=== PATIENT | female | born 1940 | race Caucasian/White ===

== ENCOUNTER 2021-11-04 | Outpatient (REF) | payer MEDICARE, SELFPAY ==
[2021-11-04 06:50] LABS: Hematocrit 33.6 % (37.0-47.0); Hemoglobin 10.8 g/dl (12.0-16.0); Mean Corpuscular HGB Conc 32.1 g/dl (31.0-35.0); Mean Corpuscular Hemoglobin 32.5 pg (27.0-33.0); Mean Corpuscular Volume 101.2 fL (80.0-98.0); Mean Platelet Volume 9.5 fL (9.4-12.3); Platelet Count 329 X10*3/uL (160-400); Red Blood Count 3.32 X10*6/uL (4.20-5.50); Red Cell Distribution Width 14.8 % (11.0-16.0); White Blood Count 9.8 X10*3/uL (4.8-10.8)
[2021-11-04 07:11] LABS: Anion Gap 14 (12-20); Blood Urea Nitrogen 12 mg/dL (9-16); Calcium 9.1 mg/dL (8.4-10.2); Carbon Dioxide 36 mmol/L (22-29); Chloride 86 mmol/L (96-108); Estimated Glomerular Filt Rate > 60; Glucose Random 128 mg/dL (60-115); Potassium 3.5 mmol/L (3.3-5.1); Sodium 132 mmol/L (135-145)
== END 2021-11-04 00:01 | disposition home or self-care (01) ==
LOC: HO.MMNH1L
PROVIDERS: Visit Provider Family Medicine
DX: I10 Essential (primary) hypertension (principal); E11.9 Type 2 diabetes mellitus without complications
CPT/HCPCS: 36415; 80048; 85027

== ENCOUNTER 2021-11-11 | Outpatient (REF) | payer MEDICARE, SELFPAY ==
[2021-11-11 06:55] LABS: MANUAL DIFF FLAG NO
[2021-11-11 07:10] LABS: Basophils Absolute Auto 0.1 X10*3/uL (0.0-0.2); Basophils Percent Auto 0.6 % (0-2); Eosinophils Absolute Auto 0.1 X10*3/uL (0.0-0.4); Eosinophils Percent Auto 1.3 % (0-4); Hemoglobin 10.4 g/dl (12.0-16.0); Imm Gran Abs Auto 0.07 X10*3/uL (0.00-0.03); Imm Gran Pct Auto 0.7 % (0.0-0.4); Lymphocytes Absolute Auto 1.9 X10*3/uL (1.2-4.9); Lymphocytes Percent Auto 17.8 % (20-40); Mean Corpuscular HGB Conc 32.5 g/dl (31.0-35.0); Mean Corpuscular Hemoglobin 31.9 pg (27.0-33.0); Mean Corpuscular Volume 98.2 fL (80.0-98.0); Mean Platelet Volume 9.7 fL (9.4-12.3); Monocytes Percent Auto 9.7 % (2-11); Neutrophils Absolute Auto 7.4 x10*3/uL (2.0-8.3); Neutrophils Percent Auto 69.9 % (45-73); Platelet Count 327 X10*3/uL (160-400); Red Blood Count 3.26 X10*6/uL (4.20-5.50); Red Cell Distribution Width 14.6 % (11.0-16.0); White Blood Count 10.5 X10*3/uL (4.8-10.8)
[2021-11-11 08:28] LABS: Anion Gap 16 (12-20); Blood Urea Nitrogen 16 mg/dL (9-16); Calcium 8.9 mg/dL (8.4-10.2); Carbon Dioxide 35 mmol/L (22-29); Chloride 85 mmol/L (96-108); Estimated Glomerular Filt Rate > 60; Glucose Random 146 mg/dL (60-115); Potassium 3.1 mmol/L (3.3-5.1); Sodium 133 mmol/L (135-145)
== END 2021-11-11 00:01 | disposition home or self-care (01) ==
LOC: HO.MMNH1L
PROVIDERS: Visit Provider Family Medicine
DX: I10 Essential (primary) hypertension (principal); E11.9 Type 2 diabetes mellitus without complications
CPT/HCPCS: 36415; 80048; 85025

== ENCOUNTER 2021-11-18 | Outpatient (REF) | payer MEDICARE, SELFPAY ==
[2021-11-18 07:07] LABS: MANUAL DIFF FLAG NO
[2021-11-18 07:23] LABS: Basophils Absolute Auto 0.1 X10*3/uL (0.0-0.2); Basophils Percent Auto 0.6 % (0-2); Eosinophils Absolute Auto 0.2 X10*3/uL (0.0-0.4); Eosinophils Percent Auto 1.6 % (0-4); Hematocrit 32.8 % (37.0-47.0); Hemoglobin 10.5 g/dl (12.0-16.0); Imm Gran Pct Auto 0.9 % (0.0-0.4); Lymphocytes Absolute Auto 1.8 X10*3/uL (1.2-4.9); Lymphocytes Percent Auto 16.7 % (20-40); Mean Corpuscular Hemoglobin 31.3 pg (27.0-33.0); Mean Corpuscular Volume 97.9 fL (80.0-98.0); Mean Platelet Volume 9.7 fL (9.4-12.3); Monocytes Percent Auto 9.2 % (2-11); Neutrophils Absolute Auto 7.8 x10*3/uL (2.0-8.3); Platelet Count 313 X10*3/uL (160-400); Red Blood Count 3.35 X10*6/uL (4.20-5.50); Red Cell Distribution Width 14.5 % (11.0-16.0); White Blood Count 11.1 X10*3/uL (4.8-10.8)
[2021-11-18 07:39] LABS: Anion Gap 13 (12-20); Blood Urea Nitrogen 15 mg/dL (9-16); Calcium 8.9 mg/dL (8.4-10.2); Carbon Dioxide 37 mmol/L (22-29); Chloride 86 mmol/L (96-108); Estimated Glomerular Filt Rate 57; Glucose Random 176 mg/dL (60-115); Potassium 3.2 mmol/L (3.3-5.1); Sodium 133 mmol/L (135-145)
== END 2021-11-18 00:01 | disposition home or self-care (01) ==
LOC: HO.MMNH1L
PROVIDERS: Visit Provider Family Medicine
DX: I10 Essential (primary) hypertension (principal); E11.9 Type 2 diabetes mellitus without complications
CPT/HCPCS: 36415; 80048; 85025

== ENCOUNTER 2021-12-16 07:04 | Outpatient (REF) | payer MEDICARE, SELFPAY ==
[2021-12-16 07:07] LABS: MANUAL DIFF FLAG NO
[2021-12-16 07:12] LABS: Basophils Percent Auto 0.3 % (0-2); Eosinophils Absolute Auto 0.1 X10*3/uL (0.0-0.4); Eosinophils Percent Auto 0.8 % (0-4); Hematocrit 32.8 % (37.0-47.0); Hemoglobin 11.1 g/dl (12.0-16.0); Imm Gran Abs Auto 0.12 X10*3/uL (0.00-0.03); Imm Gran Pct Auto 0.9 % (0.0-0.4); Lymphocytes Absolute Auto 1.8 X10*3/uL (1.2-4.9); Lymphocytes Percent Auto 13.8 % (20-40); Mean Corpuscular HGB Conc 33.8 g/dl (31.0-35.0); Mean Corpuscular Hemoglobin 32.1 pg (27.0-33.0); Mean Corpuscular Volume 94.8 fL (80.0-98.0); Mean Platelet Volume 10.3 fL (9.4-12.3); Monocytes Percent Auto 7.7 % (2-11); Neutrophils Absolute Auto 9.9 x10*3/uL (2.0-8.3); Neutrophils Percent Auto 76.5 % (45-73); Platelet Count 260 X10*3/uL (160-400); Red Blood Count 3.46 X10*6/uL (4.20-5.50); Red Cell Distribution Width 14.5 % (11.0-16.0); White Blood Count 12.9 X10*3/uL (4.8-10.8)
[2021-12-16 07:27] LABS: Anion Gap 15 (12-20); Blood Urea Nitrogen 27 mg/dL (9-16); Carbon Dioxide 32 mmol/L (22-29); Chloride 88 mmol/L (96-108); Estimated Glomerular Filt Rate 57; Glucose Random 272 mg/dL (60-115); Potassium 3.7 mmol/L (3.3-5.1); Sodium 131 mmol/L (135-145)
== END 2021-12-16 07:05 | disposition home or self-care (01) ==
LOC: HO.MMNH2L 07:04
PROVIDERS: Visit Provider Family Medicine
DX: I48.91 Unspecified atrial fibrillation (principal); Z91.81 History of falling
CPT/HCPCS: 36415; 80048; 85025

== ENCOUNTER 2021-12-26 10:57 | Outpatient (REF) | payer MEDICARE, SELFPAY ==
[2021-12-24 06:31] LABS: MANUAL DIFF FLAG NO
[2021-12-24 06:51] LABS: Basophils Percent Auto 0.4 % (0-2); Eosinophils Absolute Auto 0.2 X10*3/uL (0.0-0.4); Eosinophils Percent Auto 1.4 % (0-4); Hematocrit 35.8 % (37.0-47.0); Hemoglobin 11.8 g/dl (12.0-16.0); Imm Gran Abs Auto 0.11 X10*3/uL (0.00-0.03); Lymphocytes Absolute Auto 2.1 X10*3/uL (1.2-4.9); Lymphocytes Percent Auto 19.5 % (20-40); Mean Corpuscular Hemoglobin 30.7 pg (27.0-33.0); Mean Corpuscular Volume 93.2 fL (80.0-98.0); Mean Platelet Volume 9.9 fL (9.4-12.3); Monocytes Absolute Auto 0.9 X10*3/uL (0.1-1.2); Monocytes Percent Auto 8.4 % (2-11); Neutrophils Absolute Auto 7.4 x10*3/uL (2.0-8.3); Neutrophils Percent Auto 69.3 % (45-73); Platelet Count 254 X10*3/uL (160-400); Red Blood Count 3.84 X10*6/uL (4.20-5.50); Red Cell Distribution Width 14.6 % (11.0-16.0); White Blood Count 10.6 X10*3/uL (4.8-10.8)
[2021-12-24 07:22] LABS: Anion Gap 16 (12-20); Blood Urea Nitrogen 24 mg/dL (9-16); Calcium 9.5 mg/dL (8.4-10.2); Carbon Dioxide 31 mmol/L (22-29); Chloride 90 mmol/L (96-108); Estimated Glomerular Filt Rate 53; Glucose Random 203 mg/dL (60-115); Potassium 3.5 mmol/L (3.3-5.1); Sodium 133 mmol/L (135-145)
== END 2021-12-26 10:58 | disposition home or self-care (01) ==
LOC: HO.MMNH2L 10:57
PROVIDERS: Visit Provider Family Medicine
DX: E03.9 Hypothyroidism, unspecified (principal)
CPT/HCPCS: 36415; 80048; 85025

== ENCOUNTER 2021-12-30 06:34 | Outpatient (REF) | payer MEDICARE, SELFPAY ==
[2021-12-30 06:32] LABS: MANUAL DIFF FLAG NO
[2021-12-30 07:11] LABS: Basophils Percent Auto 0.2 % (0-2); Eosinophils Absolute Auto 0.1 X10*3/uL (0.0-0.4); Eosinophils Percent Auto 0.9 % (0-4); Hematocrit 36.4 % (37.0-47.0); Hemoglobin 11.9 g/dl (12.0-16.0); Imm Gran Abs Auto 0.15 X10*3/uL (0.00-0.03); Imm Gran Pct Auto 1.4 % (0.0-0.4); Lymphocytes Absolute Auto 1.7 X10*3/uL (1.2-4.9); Lymphocytes Percent Auto 15.8 % (20-40); Mean Corpuscular HGB Conc 32.7 g/dl (31.0-35.0); Mean Corpuscular Hemoglobin 30.7 pg (27.0-33.0); Mean Corpuscular Volume 93.8 fL (80.0-98.0); Mean Platelet Volume 9.9 fL (9.4-12.3); Monocytes Absolute Auto 0.8 X10*3/uL (0.1-1.2); Monocytes Percent Auto 7.5 % (2-11); Neutrophils Absolute Auto 8.1 x10*3/uL (2.0-8.3); Neutrophils Percent Auto 74.2 % (45-73); Platelet Count 270 X10*3/uL (160-400); Red Blood Count 3.88 X10*6/uL (4.20-5.50); Red Cell Distribution Width 14.6 % (11.0-16.0); White Blood Count 10.9 X10*3/uL (4.8-10.8)
[2021-12-30 07:39] LABS: Anion Gap 15 (12-20); Blood Urea Nitrogen 21 mg/dL (9-16); Calcium 9.1 mg/dL (8.4-10.2); Carbon Dioxide 34 mmol/L (22-29); Chloride 88 mmol/L (96-108); Estimated Glomerular Filt Rate 52; Glucose Random 249 mg/dL (60-115); Potassium 3.2 mmol/L (3.3-5.1); Sodium 134 mmol/L (135-145)
== END 2021-12-30 06:35 | disposition home or self-care (01) ==
LOC: HO.MMNH2L 06:34
PROVIDERS: Visit Provider Family Medicine
DX: I48.91 Unspecified atrial fibrillation (principal); Z79.899 Other long term (current) drug therapy
CPT/HCPCS: 36415; 80048; 85025

== ENCOUNTER 2022-06-09 06:55 | Outpatient (REF) | payer MEDICARE, SELFPAY ==
[2022-06-09 07:01] LABS: MANUAL DIFF FLAG NO
[2022-06-09 07:21] LABS: Basophils Percent Auto 0.5 % (0-2); Eosinophils Absolute Auto 0.1 X10*3/uL (0.0-0.4); Eosinophils Percent Auto 1.9 % (0-4); Hematocrit 30.2 % (37.0-47.0); Hemoglobin 9.8 g/dl (12.0-16.0); Imm Gran Abs Auto 0.03 X10*3/uL (0.00-0.03); Imm Gran Pct Auto 0.4 % (0.0-0.4); Lymphocytes Absolute Auto 1.6 X10*3/uL (1.2-4.9); Lymphocytes Percent Auto 21.2 % (20-40); Mean Corpuscular HGB Conc 32.5 g/dl (31.0-35.0); Mean Corpuscular Hemoglobin 31.1 pg (27.0-33.0); Mean Corpuscular Volume 95.9 fL (80.0-98.0); Mean Platelet Volume 10.5 fL (9.4-12.3); Monocytes Absolute Auto 1.1 X10*3/uL (0.1-1.2); Monocytes Percent Auto 14.6 % (2-11); Neutrophils Absolute Auto 4.6 x10*3/uL (2.0-8.3); Neutrophils Percent Auto 61.4 % (45-73); Platelet Count 216 X10*3/uL (160-400); Red Blood Count 3.15 X10*6/uL (4.20-5.50); White Blood Count 7.5 X10*3/uL (4.8-10.8)
[2022-06-09 08:16] LABS: Alanine Aminotransferase 10 U/L (0-31); Albumin Level 3.4 g/dL (3.5-5.0); Alkaline Phosphatase 75 U/L (39-117); Anion Gap 19 (12-20); Aspartate Amino Transferase 15 U/L (5-31); Bilirubin Total 0.6 mg/dL (0.0-1.0); Blood Urea Nitrogen 17 mg/dL (9-16); Calcium 8.7 mg/dL (8.4-10.2); Carbon Dioxide 23 mmol/L (22-29); Chloride 100 mmol/L (96-108); Estimated Glomerular Filt Rate 50; Glucose Random 140 mg/dL (60-115); Potassium 3.5 mmol/L (3.3-5.1); Sodium 138 mmol/L (135-145); Total Protein 6.1 g/dL (6.5-8.0)
== END 2022-06-09 06:56 | disposition home or self-care (01) ==
LOC: HO.MMNH2L 06:55
PROVIDERS: Visit Provider Family Medicine
DX: R53.83 Other fatigue (principal)
CPT/HCPCS: 36415; 80053; 85025

== ENCOUNTER 2022-06-30 07:29 | Outpatient (REF) | payer SELFPAY ==
[2022-06-30 07:17] LABS: MANUAL DIFF FLAG NO
[2022-06-30 07:51] LABS: Basophils Absolute Auto 0.1 X10*3/uL (0.0-0.2); Basophils Percent Auto 0.5 % (0-2); Eosinophils Absolute Auto 0.2 X10*3/uL (0.0-0.4); Eosinophils Percent Auto 1.8 % (0-4); Hematocrit 34.4 % (37.0-47.0); Hemoglobin 11.1 g/dl (12.0-16.0); Imm Gran Abs Auto 0.04 X10*3/uL (0.00-0.03); Imm Gran Pct Auto 0.4 % (0.0-0.4); Lymphocytes Absolute Auto 1.8 X10*3/uL (1.2-4.9); Lymphocytes Percent Auto 19.7 % (20-40); Mean Corpuscular HGB Conc 32.3 g/dl (31.0-35.0); Mean Corpuscular Hemoglobin 30.7 pg (27.0-33.0); Mean Platelet Volume 10.1 fL (9.4-12.3); Monocytes Absolute Auto 1.2 X10*3/uL (0.1-1.2); Monocytes Percent Auto 12.7 % (2-11); Neutrophils Percent Auto 64.9 % (45-73); Platelet Count 211 X10*3/uL (160-400); Red Blood Count 3.62 X10*6/uL (4.20-5.50); Red Cell Distribution Width 13.6 % (11.0-16.0); White Blood Count 9.3 X10*3/uL (4.8-10.8)
[2022-06-30 08:31] LABS: Alanine Aminotransferase 13 U/L (0-31); Albumin Level 3.6 g/dL (3.5-5.0); Alkaline Phosphatase 98 U/L (39-117); Anion Gap 15 (12-20); Aspartate Amino Transferase 16 U/L (5-31); Bilirubin Total 0.8 mg/dL (0.0-1.0); Blood Urea Nitrogen 20 mg/dL (9-16); Calcium 9.3 mg/dL (8.4-10.2); Carbon Dioxide 32 mmol/L (22-29); Chloride 95 mmol/L (96-108); Estimated Glomerular Filt Rate 54; Free T4 (Free Thyroxine) 1.44 ng/dL (0.71-1.85); Glucose Random 130 mg/dL (60-115); Potassium 3.5 mmol/L (3.3-5.1); Sodium 138 mmol/L (135-145); Thyroid Stimulating Hormone 1.65 uIU/mL (0.32-4.0); Total Protein 6.6 g/dL (6.5-8.0)
== END 2022-06-30 07:30 | disposition home or self-care (01) ==
LOC: HO.MMNH2L 07:29
PROVIDERS: Visit Provider Family Medicine
DX: I10 Essential (primary) hypertension (principal)
CPT/HCPCS: 36415; 80053; 84439; 84443; 85025

== ENCOUNTER 2022-09-29 06:50 | Outpatient (REF) | payer MEDICARE, MEDICAID, SELFPAY ==
[2022-09-29 06:31] LABS: MANUAL DIFF FLAG NO
[2022-09-29 07:40] LABS: Alanine Aminotransferase 13 U/L (0-31); Albumin Level 3.6 g/dL (3.5-5.0); Alkaline Phosphatase 71 U/L (39-117); Anion Gap 14 (12-20); Aspartate Amino Transferase 19 U/L (5-31); Bilirubin Total 0.9 mg/dL (0.0-1.0); Blood Urea Nitrogen 19 mg/dL (9-16); Calcium 9.1 mg/dL (8.4-10.2); Carbon Dioxide 32 mmol/L (22-29); Chloride 94 mmol/L (96-108); Estimated Glomerular Filt Rate > 60; Glucose Random 117 mg/dL (60-115); Potassium 3.5 mmol/L (3.3-5.1); Sodium 136 mmol/L (135-145); Thyroid Stimulating Hormone 0.55 uIU/mL (0.32-4.0); Total Protein 6.3 g/dL (6.5-8.0)
[2022-09-29 07:58] LABS: Basophils Absolute Auto 0.1 X10*3/uL (0.0-0.2); Basophils Percent Auto 0.7 % (0-2); Eosinophils Absolute Auto 0.2 X10*3/uL (0.0-0.4); Eosinophils Percent Auto 2.5 % (0-4); Hematocrit 33.7 % (37.0-47.0); Hemoglobin 11.1 g/dl (12.0-16.0); Imm Gran Abs Auto 0.08 X10*3/uL (0.00-0.03); Imm Gran Pct Auto 0.9 % (0.0-0.4); Lymphocytes Absolute Auto 2.2 X10*3/uL (1.2-4.9); Lymphocytes Percent Auto 23.9 % (20-40); Mean Corpuscular HGB Conc 32.9 g/dl (31.0-35.0); Mean Corpuscular Hemoglobin 32.2 pg (27.0-33.0); Mean Corpuscular Volume 97.7 fL (80.0-98.0); Mean Platelet Volume 9.8 fL (9.4-12.3); Neutrophils Absolute Auto 5.5 x10*3/uL (2.0-8.3); Platelet Count 279 X10*3/uL (160-400); Red Blood Count 3.45 X10*6/uL (4.20-5.50); Red Cell Distribution Width 15.1 % (11.0-16.0); White Blood Count 9.1 X10*3/uL (4.8-10.8)
== END 2022-09-29 06:51 | disposition home or self-care (01) ==
LOC: HO.MMNH2L 06:50
PROVIDERS: Visit Provider Family Medicine
DX: I10 Essential (primary) hypertension (principal)
CPT/HCPCS: 36415; 80053; 84439; 84443; 85025

== ENCOUNTER 2022-10-07 15:48 | Outpatient (REF) | payer MEDICARE, MEDICAID, SELFPAY ==
[2022-10-07 16:36] LABS: Strep A Nucleic Acid Negative (Negative)
== END 2022-10-07 15:49 | disposition home or self-care (01) ==
LOC: HO.MMNH2L 15:48
PROVIDERS: Visit Provider Family Medicine
DX: Z11.2 Encounter for screening for other bacterial diseases (principal)
CPT/HCPCS: 36415; 87651

== ENCOUNTER 2022-10-27 06:22 | Outpatient (REF) | payer MEDICARE, MEDICAID, SELFPAY ==
[2022-10-27 06:11] LABS: MANUAL DIFF FLAG NO
[2022-10-27 06:44] LABS: Basophils Absolute Auto 0.1 X10*3/uL (0.0-0.2); Basophils Percent Auto 0.6 % (0-2); Eosinophils Absolute Auto 0.2 X10*3/uL (0.0-0.4); Hematocrit 33.8 % (37.0-47.0); Hemoglobin 11.4 g/dl (12.0-16.0); Imm Gran Abs Auto 0.07 X10*3/uL (0.00-0.03); Imm Gran Pct Auto 0.7 % (0.0-0.4); Mean Corpuscular HGB Conc 33.7 g/dl (31.0-35.0); Mean Corpuscular Hemoglobin 32.2 pg (27.0-33.0); Mean Corpuscular Volume 95.5 fL (80.0-98.0); Mean Platelet Volume 9.8 fL (9.4-12.3); Monocytes Absolute Auto 1.1 X10*3/uL (0.1-1.2); Monocytes Percent Auto 11.5 % (2-11); Neutrophils Absolute Auto 6.2 x10*3/uL (2.0-8.3); Neutrophils Percent Auto 64.2 % (45-73); Platelet Count 260 X10*3/uL (160-400); Red Blood Count 3.54 X10*6/uL (4.20-5.50); Red Cell Distribution Width 13.3 % (11.0-16.0); White Blood Count 9.6 X10*3/uL (4.8-10.8)
[2022-10-27 08:00] LABS: Alanine Aminotransferase 12 U/L (0-31); Albumin Level 3.3 g/dL (3.5-5.0); Alkaline Phosphatase 74 U/L (39-117); Anion Gap 15 (12-20); Aspartate Amino Transferase 18 U/L (5-31); Bilirubin Total 0.7 mg/dL (0.0-1.0); Blood Urea Nitrogen 17 mg/dL (9-16); Calcium 9.1 mg/dL (8.4-10.2); Carbon Dioxide 26 mmol/L (22-29); Chloride 94 mmol/L (96-108); Estimated Glomerular Filt Rate > 60; Free T4 (Free Thyroxine) 1.21 ng/dL (0.71-1.85); Glucose Random 120 mg/dL (60-115); Potassium 3.5 mmol/L (3.3-5.1); Sodium 131 mmol/L (135-145); Thyroid Stimulating Hormone 1.17 uIU/mL (0.32-4.0); Total Protein 6.2 g/dL (6.5-8.0)
== END 2022-10-27 06:23 | disposition home or self-care (01) ==
LOC: HO.MMNH2L 06:22
PROVIDERS: Visit Provider Family Medicine
DX: I10 Essential (primary) hypertension (principal)
CPT/HCPCS: 36415; 80053; 84439; 84443; 85025

== ENCOUNTER 2022-11-24 05:59 | Outpatient (REF) | payer MEDICARE, MEDICAID, SELFPAY ==
[2022-11-24 05:58] LABS: MANUAL DIFF FLAG NO
[2022-11-24 06:55] LABS: Alanine Aminotransferase 13 U/L (0-31); Albumin Level 3.4 g/dL (3.5-5.0); Alkaline Phosphatase 77 U/L (39-117); Anion Gap 15 (12-20); Aspartate Amino Transferase 16 U/L (5-31); Bilirubin Total 0.7 mg/dL (0.0-1.0); Blood Urea Nitrogen 17 mg/dL (9-16); Calcium 9.3 mg/dL (8.4-10.2); Carbon Dioxide 28 mmol/L (22-29); Chloride 97 mmol/L (96-108); Estimated Glomerular Filt Rate > 60; Glucose Random 138 mg/dL (60-115); Potassium 3.4 mmol/L (3.3-5.1); Sodium 137 mmol/L (135-145); Total Protein 6.2 g/dL (6.5-8.0)
[2022-11-24 07:02] LABS: Basophils Absolute Auto 0.1 X10*3/uL (0.0-0.2); Basophils Percent Auto 0.5 % (0-2); Eosinophils Absolute Auto 0.2 X10*3/uL (0.0-0.4); Eosinophils Percent Auto 1.8 % (0-4); Hematocrit 34.2 % (37.0-47.0); Hemoglobin 11.4 g/dl (12.0-16.0); Imm Gran Abs Auto 0.06 X10*3/uL (0.00-0.03); Imm Gran Pct Auto 0.7 % (0.0-0.4); Lymphocytes Percent Auto 21.9 % (20-40); Mean Corpuscular HGB Conc 33.3 g/dl (31.0-35.0); Mean Corpuscular Hemoglobin 32.1 pg (27.0-33.0); Mean Corpuscular Volume 96.3 fL (80.0-98.0); Mean Platelet Volume 10.1 fL (9.4-12.3); Monocytes Absolute Auto 1.1 X10*3/uL (0.1-1.2); Monocytes Percent Auto 11.5 % (2-11); Neutrophils Absolute Auto 5.8 x10*3/uL (2.0-8.3); Neutrophils Percent Auto 63.6 % (45-73); Platelet Count 250 X10*3/uL (160-400); Red Blood Count 3.55 X10*6/uL (4.20-5.50); White Blood Count 9.1 X10*3/uL (4.8-10.8)
[2022-11-24 07:12] LABS: T4 Thyroxine 7.3 ug/dL (4.5-12.0); Thyroid Stimulating Hormone 5.65 uIU/mL (0.32-4.0)
== END 2022-11-24 06:00 | disposition home or self-care (01) ==
LOC: HO.MMNH2L 05:59
PROVIDERS: Visit Provider Family Medicine
DX: I10 Essential (primary) hypertension (principal)
CPT/HCPCS: 36415; 80053; 84436; 84443; 85025

== ENCOUNTER 2022-12-29 06:06 | Outpatient (REF) | payer MEDICARE, MEDICAID, SELFPAY ==
[2022-12-29 06:02] LABS: MANUAL DIFF FLAG NO
[2022-12-29 06:55] LABS: Basophils Absolute Auto 0.1 X10*3/uL (0.0-0.2); Basophils Percent Auto 0.6 % (0-2); Eosinophils Absolute Auto 0.2 X10*3/uL (0.0-0.4); Eosinophils Percent Auto 1.7 % (0-4); Hematocrit 31.8 % (37.0-47.0); Hemoglobin 10.7 g/dl (12.0-16.0); Imm Gran Abs Auto 0.05 X10*3/uL (0.00-0.03); Imm Gran Pct Auto 0.6 % (0.0-0.4); Lymphocytes Absolute Auto 1.9 X10*3/uL (1.2-4.9); Lymphocytes Percent Auto 21.3 % (20-40); Mean Corpuscular HGB Conc 33.6 g/dl (31.0-35.0); Mean Corpuscular Hemoglobin 31.8 pg (27.0-33.0); Mean Corpuscular Volume 94.4 fL (80.0-98.0); Mean Platelet Volume 9.8 fL (9.4-12.3); Monocytes Percent Auto 11.9 % (2-11); Neutrophils Absolute Auto 5.6 x10*3/uL (2.0-8.3); Neutrophils Percent Auto 63.9 % (45-73); Platelet Count 229 X10*3/uL (160-400); Red Blood Count 3.37 X10*6/uL (4.20-5.50); White Blood Count 8.7 X10*3/uL (4.8-10.8)
[2022-12-29 06:59] LABS: Alanine Aminotransferase 12 U/L (0-31); Albumin Level 3.4 g/dL (3.5-5.0); Alkaline Phosphatase 77 U/L (39-117); Anion Gap 13 (12-20); Aspartate Amino Transferase 14 U/L (5-31); Bilirubin Total 0.7 mg/dL (0.0-1.0); Blood Urea Nitrogen 24 mg/dL (9-16); Calcium 9.2 mg/dL (8.4-10.2); Carbon Dioxide 29 mmol/L (22-29); Chloride 95 mmol/L (96-108); Estimated Glomerular Filt Rate 59; Free T4 (Free Thyroxine) 1.43 ng/dL (0.71-1.85); Glucose Random 135 mg/dL (60-115); Potassium 3.1 mmol/L (3.3-5.1); Sodium 134 mmol/L (135-145); Thyroid Stimulating Hormone 0.71 uIU/mL (0.32-4.0); Total Protein 6.2 g/dL (6.5-8.0)
== END 2022-12-29 06:07 | disposition home or self-care (01) ==
LOC: HO.MMNH2L 06:06
PROVIDERS: Visit Provider Family Medicine
DX: I10 Essential (primary) hypertension (principal)
CPT/HCPCS: 36415; 80053; 84439; 84443; 85025

== ENCOUNTER 2022-12-30 09:30 | Outpatient (REF) | payer MEDICARE, MEDICAID, SELFPAY ==
--- NOTE | 2022-12-30 12:21 | MHC.AU.HAS ---
Hearing Aid Evaluation Date of Visit: 12/30/22 Historical Information: Description of Hearing: Audiogram dated 12/30/22 reveals mild to moderate SNHL with excellent WRS bilaterally. See audiogram for report. Summary: Discussed benefit of amplification. Patient and daughter are interested in proceeding with binaural amplification. Discussed different hearing aid styles and rechargability vs batteries. Patient in agreement with ITE FS style, rechargeable. Ear mold impressions were taken bilaterally without incident. Will submit medical clearance via fax to PCP. Patient to be contacted for dispense once materials arrive. Griselda prefers to schedule the dispense some time in February, or later, so that her daughter can be present. Griselda has some dexterity issues. She does have a nurse's aid who can assist with basic hearing aid care. Her daughter will relay any info to the nurse's aid. Hearing Aid Prescription: Based on the individual?s shared listening needs, communication environments, dexterity, desire for connectivity, and personal preferences, the following prescription for amplification has been made: Right ear: Jerry Evolv AI 1600 FS ITE, pink Battery Size: Rechargeable Passenger Car Conductor: 115/50 Left ear: Left ear prescription to be same as Right Hearing Aid above: Jerry Evolv AI 1600 FS ITE, pink Battery Size: Rechargeable Passenger Car Conductor: 115/50 Plan of Care: Patient wishes to purchase hearing aids as prescribed Action Taken/Action Needed: Earmold Impressions Taken Medical Clearance to be requested from PCP/ENT Hearing Instrument Fitting to be scheduled when materials arrive Primary Diagnosis: H90.3 Bilateral Sensorineural Hearing Loss Signature: Provider: Radha Lake, [facility]
--- NOTE | 2022-12-30 12:24 | MHC.AU.MED ---
Medical Clearance for Hearing Instrumentation Date: 12/30/22 Patient Name: Griselda Benítez Date of : 1940 Primary Care Provider: Referring Provider: PADMA Klein We have seen your patient on 12/30/22 and have determined that they are a candidate for amplification (See accompanying report). Specifically, they would benefit from: Hearing aid use in both ears There is a statute that addresses Medical Evaluation Requirements prior to fitting a patient with a hearing aid. According to [place] statute 265 CMR:6.03(1), (a) General. Except as provided in 265 CMR 6.03(1)(b), a finish machine tender shall not sell a hearing aid unless the prospective user has presented to the finish machine tender a written statement signed by a licensed physician that states that the patient's hearing loss has been medically evaluated and the patient may be considered a candidate for a hearing aid. The medical evaluation must have taken place within the preceding six months. Please note: Due to the [place] Statute referenced above, we cannot accept a signature other than that of a licensed physician. SENIOR RESERVATIONS AGENT and PA signatures cannot be accepted. I am in agreement with the above recommendation. There is no medical contraindication for hearing instrumentation. Physician Signature Date Physician Name (Printed)
== END 2022-12-30 09:31 | disposition home or self-care (01) ==
LOC: HO.SH 09:30
PROVIDERS: Visit Provider Nurse Practitioner Family
DX: Z01.118 Encounter for examination of ears and hearing with other abnormal findings (principal); H90.3 Sensorineural hearing loss, bilateral
CPT/HCPCS: 92557; 92567; 92591; V5275

== ENCOUNTER 2023-01-15 14:34 | Outpatient (REF) | payer MEDICARE, MEDICAID, SELFPAY | END 2023-01-15 14:35 | disposition home or self-care (01) | LOC: HO.HAP 14:34 | PROVIDERS: Visit Provider Family Medicine | DX: Z46.1 Encounter for fitting and adjustment of hearing aid (principal); H90.3 Sensorineural hearing loss, bilateral | CPT/HCPCS: 92595; V5011; V5020; V5160; V5260 ==

== ENCOUNTER 2023-01-23 11:02 | Outpatient (REF) | payer MEDICARE, MEDICAID, SELFPAY | END 2023-01-23 11:03 | disposition home or self-care (01) | LOC: HO.HAP 11:02 | PROVIDERS: Visit Provider Internal Medicine | DX: Z13.89 Encounter for screening for other disorder (principal) ==

== ENCOUNTER 2023-01-26 06:21 | Outpatient (REF) | payer MEDICARE, MEDICAID, SELFPAY ==
[2023-01-26 06:13] LABS: MANUAL DIFF FLAG NO
[2023-01-26 06:54] LABS: Basophils Absolute Auto 0.1 X10*3/uL (0.0-0.2); Basophils Percent Auto 0.7 % (0-2); Eosinophils Absolute Auto 0.2 X10*3/uL (0.0-0.4); Eosinophils Percent Auto 1.9 % (0-4); Hematocrit 33.2 % (37.0-47.0); Hemoglobin 10.8 g/dl (12.0-16.0); Imm Gran Abs Auto 0.06 X10*3/uL (0.00-0.03); Imm Gran Pct Auto 0.7 % (0.0-0.4); Lymphocytes Absolute Auto 2.2 X10*3/uL (1.2-4.9); Lymphocytes Percent Auto 23.8 % (20-40); Mean Corpuscular HGB Conc 32.5 g/dl (31.0-35.0); Mean Corpuscular Hemoglobin 31.5 pg (27.0-33.0); Mean Corpuscular Volume 96.8 fL (80.0-98.0); Mean Platelet Volume 9.9 fL (9.4-12.3); Monocytes Absolute Auto 1.1 X10*3/uL (0.1-1.2); Monocytes Percent Auto 12.5 % (2-11); Neutrophils Absolute Auto 5.5 x10*3/uL (2.0-8.3); Neutrophils Percent Auto 60.4 % (45-73); Platelet Count 236 X10*3/uL (160-400); Red Blood Count 3.43 X10*6/uL (4.20-5.50); Red Cell Distribution Width 13.3 % (11.0-16.0)
[2023-01-26 07:13] LABS: Alanine Aminotransferase 15 U/L (0-31); Albumin Level 3.3 g/dL (3.5-5.0); Alkaline Phosphatase 73 U/L (39-117); Anion Gap 16 (12-20); Aspartate Amino Transferase 16 U/L (5-31); Bilirubin Total 0.6 mg/dL (0.0-1.0); Blood Urea Nitrogen 19 mg/dL (9-16); Calcium 9.3 mg/dL (8.4-10.2); Carbon Dioxide 26 mmol/L (22-29); Chloride 98 mmol/L (96-108); Estimated Glomerular Filt Rate > 60; Glucose Random 103 mg/dL (60-115); Potassium 3.5 mmol/L (3.3-5.1); Sodium 136 mmol/L (135-145); Total Protein 6.4 g/dL (6.5-8.0)
[2023-01-26 07:16] LABS: Free T4 (Free Thyroxine) 1.57 ng/dL (0.71-1.85); Thyroid Stimulating Hormone 1.05 uIU/mL (0.32-4.0)
== END 2023-01-26 06:22 | disposition home or self-care (01) ==
LOC: HO.MMNH3L 06:21
PROVIDERS: Visit Provider Family Medicine
DX: I10 Essential (primary) hypertension (principal)
CPT/HCPCS: 36415; 80053; 84439; 84443; 85025

== ENCOUNTER 2023-02-07 23:30 | Outpatient (REF) | payer MEDICARE, MEDICAID, SELFPAY ==
[2023-02-08 08:35] LABS: Appearance Urine Clear; Color Urine Yellow; Glucose Urine UA Negative (Negative); Leukocyte Esterase Urine Moderate (2+) (Negative); Nitrite Urine Negative (Negative); UMIC TRIGGER UACC YES; Urine Blood Negative (Negative); Urine Ketones Trace mg/dL (Negative); Urine Protein Negative (Neg-Trace)
[2023-02-08 08:49] LABS: Bacteria Urine None Seen (None Seen); RBC Urine 0-2 /HPF (0-2); UACC Culture Trigger YES
== END 2023-02-07 23:31 | disposition home or self-care (01) ==
LOC: HO.MMNH3L 23:30
PROVIDERS: Visit Provider Family Medicine
DX: M54.50 Low back pain, unspecified (principal); R82.90 Unspecified abnormal findings in urine
CPT/HCPCS: 81001; 87086; 87088; 87186

== ENCOUNTER 2023-02-26 10:40 | Outpatient (REF) | payer MEDICARE, MEDICAID, SELFPAY | END 2023-02-26 10:41 | disposition home or self-care (01) | LOC: HO.HAP 10:40 | PROVIDERS: Visit Provider Nurse Practitioner Family | DX: Z13.89 Encounter for screening for other disorder (principal) ==

== ENCOUNTER 2023-03-02 05:52 | Outpatient (REF) | payer MEDICARE, MEDICAID, SELFPAY ==
[2023-03-02 05:53] LABS: MANUAL DIFF FLAG NO
[2023-03-02 06:07] LABS: Basophils Percent Auto 0.5 % (0-2); Eosinophils Absolute Auto 0.2 X10*3/uL (0.0-0.4); Eosinophils Percent Auto 1.9 % (0-4); Hemoglobin 10.9 g/dl (12.0-16.0); Imm Gran Abs Auto 0.06 X10*3/uL (0.00-0.03); Imm Gran Pct Auto 0.7 % (0.0-0.4); Lymphocytes Percent Auto 22.6 % (20-40); Mean Corpuscular HGB Conc 32.1 g/dl (31.0-35.0); Mean Corpuscular Hemoglobin 31.3 pg (27.0-33.0); Mean Corpuscular Volume 97.7 fL (80.0-98.0); Mean Platelet Volume 9.8 fL (9.4-12.3); Monocytes Percent Auto 11.6 % (2-11); Neutrophils Absolute Auto 5.4 x10*3/uL (2.0-8.3); Neutrophils Percent Auto 62.7 % (45-73); Platelet Count 229 X10*3/uL (160-400); Red Blood Count 3.48 X10*6/uL (4.20-5.50); White Blood Count 8.6 X10*3/uL (4.8-10.8)
[2023-03-02 06:25] LABS: Alanine Aminotransferase 16 U/L (0-31); Albumin Level 3.4 g/dL (3.5-5.0); Alkaline Phosphatase 89 U/L (39-117); Anion Gap 17 (12-20); Aspartate Amino Transferase 16 U/L (5-31); Bilirubin Total 0.5 mg/dL (0.0-1.0); Blood Urea Nitrogen 18 mg/dL (9-16); Calcium 9.2 mg/dL (8.4-10.2); Carbon Dioxide 25 mmol/L (22-29); Chloride 98 mmol/L (96-108); Estimated Glomerular Filt Rate > 60; Glucose Random 118 mg/dL (60-115); Potassium 3.3 mmol/L (3.3-5.1); Sodium 137 mmol/L (135-145); Total Protein 6.5 g/dL (6.5-8.0)
[2023-03-02 06:32] LABS: Free T4 (Free Thyroxine) 1.13 ng/dL (0.71-1.85); Thyroid Stimulating Hormone 3.16 uIU/mL (0.32-4.0)
== END 2023-03-02 05:53 | disposition home or self-care (01) ==
LOC: HO.MMNH3L 05:52
PROVIDERS: Visit Provider Family Medicine
DX: I10 Essential (primary) hypertension (principal)
CPT/HCPCS: 36415; 80053; 84439; 84443; 85025

== ENCOUNTER 2023-03-06 20:48 | Outpatient (REF) | payer MEDICARE, MEDICAID, SELFPAY | END 2023-03-06 20:49 | disposition home or self-care (01) | LOC: HO.MMNH3L 20:48 | PROVIDERS: Visit Provider Family Medicine | DX: R50.9 Fever, unspecified (principal) | CPT/HCPCS: 87070; 87147 ==

== ENCOUNTER 2023-03-26 13:49 | Outpatient (REF) | payer MEDICARE, MEDICAID, SELFPAY ==
--- NOTE | 2023-03-26 15:51 | MHC.AU.HA3 ---
Hearing Instrument Follow-Up- Binaural Date of Visit: 03/26/23 Right Ear: Odin, Model, Color, Serial Number: Jerry Humphrey AI 1600 FS ITE-R SN: [id number] Color: [place] Body Service Team Member Repair Warranty: 02/03/2026 Body Service Team Member Loss and Damage Warranty: 02/03/2026 [facility] Service Plan: 01/16/2024 Battery Size: Rechargeable Mill Tender/Slim Tube: 115/50 Type of Wax Guard: Hear Clear Dispensed By: [facility] Date of Fittin01/15/2023 Left Ear: Odin, Model, Color, Serial Number: Jerry ZAMARRIPA 1600 FS ITE-R SN: [id number] Color: [place] Body Service Team Member Repair Warranty: 02/03/2026 Body Service Team Member Loss and Damage Warranty: 02/03/2026 [facility] Service Plan: 01/16/2024 Battery Size: Rechargeable Mill Tender/Slim Tube: 115/50 Type of Wax Guard: Hear Clear Dispensed By: [facility] Date of Fittin01/15/2023 Follow-Up Summary: Fit remade hearing aids and reprogrammed from scratch - Recalculated initial fit settings using NAL-NL2 algorithm. [place]an real ear measures with more appropriate fit to target. Performed feedback accounting practice manager. Griselda noted an immediate improvement in sound quality and balance between her ears. No feedback noted in office. Disabled volume control at Griselda's request as she was getting frustrated with it. Practiced insertion. Griselda was able to insert the right hearing aid without issues. She had more difficulty inserting the helix portion of the left hearing aid. She has a nurse to help with [facility] if she has trouble. Provided one package of wax guards, as Griselda's daughter, Fernanda reported they were told they would get one at the last appointment. Recommendations: Hearing instrument follow-up or maintenance as needed. Please contact our clinic with any questions or concerns. Diagnosis Code(s): Primary Diagnosis: H90.3 Bilateral Sensorineural Hearing Loss Signature: Provider: Mitchel Ramey, [facility]
== END 2023-03-26 13:50 | disposition home or self-care (01) ==
LOC: HO.HAP 13:49
PROVIDERS: Visit Provider Family Medicine
DX: Z13.89 Encounter for screening for other disorder (principal)

== ENCOUNTER 2023-03-31 06:40 | Outpatient (REF) | payer MEDICARE, MEDICAID, SELFPAY ==
[2023-03-31 06:31] LABS: MANUAL DIFF FLAG NO
[2023-03-31 07:20] LABS: Basophils Percent Auto 0.5 % (0-2); Eosinophils Absolute Auto 0.2 X10*3/uL (0.0-0.4); Eosinophils Percent Auto 1.8 % (0-4); Hematocrit 33.9 % (37.0-47.0); Imm Gran Abs Auto 0.04 X10*3/uL (0.00-0.03); Imm Gran Pct Auto 0.5 % (0.0-0.4); Lymphocytes Absolute Auto 2.1 X10*3/uL (1.2-4.9); Lymphocytes Percent Auto 25.3 % (20-40); Mean Corpuscular HGB Conc 32.4 g/dl (31.0-35.0); Mean Corpuscular Hemoglobin 31.4 pg (27.0-33.0); Mean Corpuscular Volume 96.9 fL (80.0-98.0); Mean Platelet Volume 9.9 fL (9.4-12.3); Neutrophils Percent Auto 59.9 % (45-73); Platelet Count 261 X10*3/uL (160-400); Red Cell Distribution Width 13.2 % (11.0-16.0); White Blood Count 8.4 X10*3/uL (4.8-10.8)
[2023-03-31 07:52] LABS: Alanine Aminotransferase 13 U/L (0-31); Albumin Level 3.5 g/dL (3.5-5.0); Alkaline Phosphatase 72 U/L (39-117); Anion Gap 14 (12-20); Aspartate Amino Transferase 17 U/L (5-31); Bilirubin Total 0.6 mg/dL (0.0-1.0); Blood Urea Nitrogen 22 mg/dL (9-16); Calcium 9.4 mg/dL (8.4-10.2); Carbon Dioxide 30 mmol/L (22-29); Chloride 98 mmol/L (96-108); Estimated Glomerular Filt Rate 52; Glucose Random 83 mg/dL (60-115); Potassium 3.1 mmol/L (3.3-5.1); Sodium 139 mmol/L (135-145); Total Protein 6.5 g/dL (6.5-8.0)
[2023-03-31 08:11] LABS: Free T4 (Free Thyroxine) 1.19 ng/dL (0.71-1.85); Thyroid Stimulating Hormone 3.85 uIU/mL (0.32-4.0)
== END 2023-03-31 06:41 | disposition home or self-care (01) ==
LOC: HO.MMNH3L 06:40
PROVIDERS: Visit Provider Family Medicine
DX: I10 Essential (primary) hypertension (principal)
CPT/HCPCS: 36415; 80053; 84439; 84443; 85025

== ENCOUNTER 2023-04-03 15:12 | Outpatient (REF) | payer MEDICARE, MEDICAID, SELFPAY ==
--- NOTE | 2023-04-03 15:46 | MHC.AU.HA3 ---
Hearing Instrument Follow-Up- Binaural Date of Visit: 04/03/23 Right Ear: Odin, Model, Color, Serial Number: Jerry ZAMARRIPA 1600 FS ITE-R SN: [id number] Color: [place] [employer]ise Presentation Associate Repair Warranty: 02/03/2026 Merchandise Presentation Associate Loss and Damage Warranty: 02/03/2026 [facility] Service Plan: 01/16/2024 Battery Size: Rechargeable Mainframe Systems Programmer/Slim Tube: 115/50 Type of Wax Guard: Hear Clear Dispensed By: [facility] Date of Fittin01/15/2023 Left Ear: Odin, Model, Color, Serial Number: Jerry ZAMARRIPA 1600 FS ITE-R SN: [id number] Color: [place] [employer] Presentation Associate Repair Warranty: 02/03/2026 Merchandise Presentation Associate Loss and Damage Warranty: 02/03/2026 [facility] Service Plan: 01/16/2024 Battery Size: Rechargeable Mainframe Systems Programmer/Slim Tube: 115/50 Type of Wax Guard: Hear Clear Dispensed By: [facility] Date of Fittin01/15/2023 Follow-Up Summary: Griselda reported that she has been having difficulty hearing her television while there is background noise occurring in the hallway of her care home. She can reportedly hear down the cesar to the nurses' station more than she can hear her television. Decreased overall volume slightly and adjusted compression ratios. Griselda knows the hearing aids are beneficial and notices an improvement in her hearing with them; however, she is still adjusting to hearing all of the background noise. Discussed brain hearing and the ability to process speech from background noise which also changes with age. Tried to replicate the hallway noise by playing YouTube video of ambient noise while talking with Griselda. She reported that she could hear the noise but could also still hear and understand the conversation. Explained the need to acclimate to hearing aid settings and to trial these settings for at least two weeks. Recommendations: Hearing instrument follow-up or maintenance as needed. Please contact our clinic with any questions or concerns. Patient will call if problems persist. Diagnosis Code(s): Primary Diagnosis: H90.3 Bilateral Sensorineural Hearing Loss Signature: Provider: Mitchel Ramey, [facility]
== END 2023-04-03 15:13 | disposition home or self-care (01) ==
LOC: HO.HAP 15:12
PROVIDERS: Visit Provider Internal Medicine
DX: Z13.89 Encounter for screening for other disorder (principal)

== ENCOUNTER 2023-04-27 06:24 | Outpatient (REF) | payer MEDICARE, MEDICAID, SELFPAY ==
[2023-04-27 06:11] LABS: MANUAL DIFF FLAG NO
[2023-04-27 07:00] LABS: Basophils Percent Auto 0.5 % (0-2); Eosinophils Absolute Auto 0.2 X10*3/uL (0.0-0.4); Eosinophils Percent Auto 2.2 % (0-4); Hematocrit 33.2 % (37.0-47.0); Hemoglobin 10.7 g/dl (12.0-16.0); Imm Gran Abs Auto 0.04 X10*3/uL (0.00-0.03); Imm Gran Pct Auto 0.5 % (0.0-0.4); Lymphocytes Percent Auto 26.2 % (20-40); Mean Corpuscular HGB Conc 32.2 g/dl (31.0-35.0); Mean Corpuscular Hemoglobin 31.4 pg (27.0-33.0); Mean Corpuscular Volume 97.4 fL (80.0-98.0); Mean Platelet Volume 10.2 fL (9.4-12.3); Monocytes Absolute Auto 1.1 X10*3/uL (0.1-1.2); Monocytes Percent Auto 13.8 % (2-11); Neutrophils Absolute Auto 4.4 x10*3/uL (2.0-8.3); Neutrophils Percent Auto 56.8 % (45-73); Platelet Count 246 X10*3/uL (160-400); Red Blood Count 3.41 X10*6/uL (4.20-5.50); Red Cell Distribution Width 13.3 % (11.0-16.0); White Blood Count 7.7 X10*3/uL (4.8-10.8)
[2023-04-27 07:29] LABS: Alanine Aminotransferase 11 U/L (0-31); Albumin Level 3.5 g/dL (3.5-5.0); Alkaline Phosphatase 78 U/L (39-117); Anion Gap 15 (12-20); Aspartate Amino Transferase 14 U/L (5-31); Bilirubin Total 0.5 mg/dL (0.0-1.0); Blood Urea Nitrogen 25 mg/dL (9-16); Calcium 9.3 mg/dL (8.4-10.2); Carbon Dioxide 28 mmol/L (22-29); Chloride 98 mmol/L (96-108); Estimated Glomerular Filt Rate 49; Glucose Random 137 mg/dL (60-115); Sodium 138 mmol/L (135-145); Total Protein 6.6 g/dL (6.5-8.0)
[2023-04-27 07:44] LABS: Free T4 (Free Thyroxine) 1.19 ng/dL (0.71-1.85); Thyroid Stimulating Hormone 2.05 uIU/mL (0.32-4.0)
== END 2023-04-27 06:25 | disposition home or self-care (01) ==
LOC: HO.MMNH3L 06:24
PROVIDERS: Visit Provider Family Medicine
DX: I10 Essential (primary) hypertension (principal)
CPT/HCPCS: 36415; 80053; 84439; 84443; 85025

== ENCOUNTER 2023-06-01 08:02 | Outpatient (REF) | payer MEDICARE, MEDICAID, SELFPAY ==
[2023-06-01 06:13] LABS: MANUAL DIFF FLAG NO
[2023-06-01 07:20] LABS: Alanine Aminotransferase 13 U/L (0-31); Albumin Level 3.5 g/dL (3.5-5.0); Alkaline Phosphatase 70 U/L (39-117); Anion Gap 14 (12-20); Aspartate Amino Transferase 17 U/L (5-31); Bilirubin Total 0.6 mg/dL (0.0-1.0); Blood Urea Nitrogen 28 mg/dL (9-16); Calcium 9.4 mg/dL (8.4-10.2); Carbon Dioxide 34 mmol/L (22-29); Chloride 94 mmol/L (96-108); Estimated Glomerular Filt Rate 40; Glucose Random 116 mg/dL (60-115); Potassium 3.3 mmol/L (3.3-5.1); Sodium 139 mmol/L (135-145); Total Protein 6.6 g/dL (6.5-8.0)
[2023-06-01 07:23] LABS: Basophils Absolute Auto 0.1 X10*3/uL (0.0-0.2); Basophils Percent Auto 0.6 % (0-2); Eosinophils Absolute Auto 0.1 X10*3/uL (0.0-0.4); Eosinophils Percent Auto 1.5 % (0-4); Hematocrit 34.5 % (37.0-47.0); Hemoglobin 11.3 g/dl (12.0-16.0); Imm Gran Abs Auto 0.04 X10*3/uL (0.00-0.03); Imm Gran Pct Auto 0.5 % (0.0-0.4); Lymphocytes Absolute Auto 2.2 X10*3/uL (1.2-4.9); Lymphocytes Percent Auto 25.4 % (20-40); Mean Corpuscular HGB Conc 32.8 g/dl (31.0-35.0); Mean Corpuscular Hemoglobin 31.5 pg (27.0-33.0); Mean Corpuscular Volume 96.1 fL (80.0-98.0); Monocytes Percent Auto 11.7 % (2-11); Neutrophils Absolute Auto 5.1 x10*3/uL (2.0-8.3); Neutrophils Percent Auto 60.3 % (45-73); Platelet Count 216 X10*3/uL (160-400); Red Blood Count 3.59 X10*6/uL (4.20-5.50); Red Cell Distribution Width 13.1 % (11.0-16.0); White Blood Count 8.5 X10*3/uL (4.8-10.8)
[2023-06-01 07:36] LABS: Magnesium 1.7 mg/dL (1.6-2.6)
[2023-06-01 07:37] LABS: Free T4 (Free Thyroxine) 1.44 ng/dL (0.71-1.85); Thyroid Stimulating Hormone 0.54 uIU/mL (0.32-4.0)
== END 2023-06-01 08:03 | disposition home or self-care (01) ==
LOC: HO.MMNH3L 08:02
PROVIDERS: Visit Provider Family Medicine
DX: I10 Essential (primary) hypertension (principal)
CPT/HCPCS: 36415; 80053; 83735; 84439; 84443; 85025

== ENCOUNTER 2023-06-23 11:03 | Outpatient (REF) | payer MEDICARE, MEDICAID, SELFPAY | END 2023-06-23 11:04 | disposition home or self-care (01) | LOC: HO.MMNH3L 11:03 | PROVIDERS: Visit Provider Family Medicine | DX: Z13.89 Encounter for screening for other disorder (principal) ==

== ENCOUNTER 2023-06-29 07:30 | Outpatient (REF) | payer MEDICARE, MEDICAID, SELFPAY ==
[2023-06-29 06:08] LABS: MANUAL DIFF FLAG NO
[2023-06-29 07:02] LABS: Basophils Absolute Auto 0.1 X10*3/uL (0.0-0.2); Basophils Percent Auto 0.6 % (0-2); Eosinophils Absolute Auto 0.2 X10*3/uL (0.0-0.4); Eosinophils Percent Auto 2.9 % (0-4); Hematocrit 32.5 % (37.0-47.0); Hemoglobin 10.6 g/dl (12.0-16.0); Imm Gran Abs Auto 0.04 X10*3/uL (0.00-0.03); Imm Gran Pct Auto 0.5 % (0.0-0.4); Lymphocytes Absolute Auto 1.7 X10*3/uL (1.2-4.9); Lymphocytes Percent Auto 21.5 % (20-40); Mean Corpuscular HGB Conc 32.6 g/dl (31.0-35.0); Mean Corpuscular Hemoglobin 31.6 pg (27.0-33.0); Mean Platelet Volume 10.2 fL (9.4-12.3); Monocytes Absolute Auto 1.1 X10*3/uL (0.1-1.2); Monocytes Percent Auto 13.4 % (2-11); Neutrophils Absolute Auto 4.8 x10*3/uL (2.0-8.3); Neutrophils Percent Auto 61.1 % (45-73); Platelet Count 210 X10*3/uL (160-400); Red Blood Count 3.35 X10*6/uL (4.20-5.50); Red Cell Distribution Width 13.3 % (11.0-16.0); White Blood Count 7.9 X10*3/uL (4.8-10.8)
[2023-06-29 07:35] LABS: Alanine Aminotransferase 16 U/L (0-31); Albumin Level 3.1 g/dL (3.5-5.0); Alkaline Phosphatase 57 U/L (39-117); Anion Gap 13 (12-20); Aspartate Amino Transferase 22 U/L (5-31); Bilirubin Total 0.6 mg/dL (0.0-1.0); Blood Urea Nitrogen 23 mg/dL (9-16); Calcium 8.9 mg/dL (8.4-10.2); Carbon Dioxide 27 mmol/L (22-29); Chloride 103 mmol/L (96-108); Estimated Glomerular Filt Rate 50; Glucose Random 95 mg/dL (60-115); Potassium 3.2 mmol/L (3.3-5.1); Sodium 140 mmol/L (135-145); Total Protein 5.9 g/dL (6.5-8.0)
[2023-06-29 07:41] LABS: Thyroid Stimulating Hormone 1.07 uIU/mL (0.32-4.0)
== END 2023-06-29 07:31 | disposition home or self-care (01) ==
LOC: HO.MMNH3L 07:30
PROVIDERS: Visit Provider Family Medicine
DX: I10 Essential (primary) hypertension (principal)
CPT/HCPCS: 36415; 80053; 84439; 84443; 85025

== ENCOUNTER 2023-08-31 06:29 | Outpatient (REF) | payer MEDICARE, MEDICAID, SELFPAY ==
[2023-08-31 06:07] LABS: MANUAL DIFF FLAG NO
[2023-08-31 06:39] LABS: Basophils Absolute Auto 0.1 X10*3/uL (0.0-0.2); Basophils Percent Auto 0.6 % (0-2); Eosinophils Absolute Auto 0.1 X10*3/uL (0.0-0.4); Eosinophils Percent Auto 0.9 % (0-4); Hematocrit 37.6 % (37.0-47.0); Hemoglobin 12.8 g/dl (12.0-16.0); Imm Gran Abs Auto 0.19 X10*3/uL (0.00-0.03); Imm Gran Pct Auto 1.9 % (0.0-0.4); Lymphocytes Absolute Auto 1.8 X10*3/uL (1.2-4.9); Lymphocytes Percent Auto 18.2 % (20-40); Mean Corpuscular Hemoglobin 32.3 pg (27.0-33.0); Mean Corpuscular Volume 94.9 fL (80.0-98.0); Mean Platelet Volume 9.5 fL (9.4-12.3); Monocytes Absolute Auto 1.1 X10*3/uL (0.1-1.2); Monocytes Percent Auto 11.1 % (2-11); Neutrophils Absolute Auto 6.6 x10*3/uL (2.0-8.3); Neutrophils Percent Auto 67.3 % (45-73); Platelet Count 246 X10*3/uL (160-400); Red Blood Count 3.96 X10*6/uL (4.20-5.50); Red Cell Distribution Width 13.2 % (11.0-16.0); White Blood Count 9.8 X10*3/uL (4.8-10.8)
[2023-08-31 07:18] LABS: Anion Gap 17 (12-20); Blood Urea Nitrogen 38 mg/dL (9-16); Calcium 9.6 mg/dL (8.4-10.2); Carbon Dioxide 28 mmol/L (22-29); Chloride 95 mmol/L (96-108); Estimated Glomerular Filt Rate 47; Glucose Random 197 mg/dL (60-115); Potassium 3.1 mmol/L (3.3-5.1); Sodium 137 mmol/L (135-145)
[2023-08-31 07:22] LABS: Free T4 (Free Thyroxine) 1.75 ng/dL (0.71-1.85); Thyroid Stimulating Hormone 0.07 uIU/mL (0.32-4.0)
== END 2023-08-31 06:30 | disposition home or self-care (01) ==
LOC: HO.MMNH3L 06:29
PROVIDERS: Visit Provider Family Medicine
DX: E03.9 Hypothyroidism, unspecified (principal)
CPT/HCPCS: 36415; 80048; 84439; 84443; 85025

== ENCOUNTER 2023-10-14 05:46 | Outpatient (REF) | payer MEDICARE, MEDICAID, SELFPAY ==
[2023-10-14 05:50] LABS: MANUAL DIFF FLAG NO
[2023-10-14 05:59] LABS: Basophils Percent Auto 0.2 % (0-2); Eosinophils Absolute Auto 0.1 X10*3/uL (0.0-0.4); Eosinophils Percent Auto 0.6 % (0-4); Hematocrit 35.4 % (37.0-47.0); Hemoglobin 12.2 g/dl (12.0-16.0); Imm Gran Abs Auto 0.46 X10*3/uL (0.00-0.03); Lymphocytes Absolute Auto 1.3 X10*3/uL (1.2-4.9); Lymphocytes Percent Auto 11.2 % (20-40); Mean Corpuscular HGB Conc 34.5 g/dl (31.0-35.0); Mean Corpuscular Volume 92.9 fL (80.0-98.0); Mean Platelet Volume 9.4 fL (9.4-12.3); Monocytes Percent Auto 8.8 % (2-11); Neutrophils Absolute Auto 8.8 x10*3/uL (2.0-8.3); Neutrophils Percent Auto 75.2 % (45-73); Platelet Count 174 X10*3/uL (160-400); Red Blood Count 3.81 X10*6/uL (4.20-5.50); Red Cell Distribution Width 13.3 % (11.0-16.0); White Blood Count 11.6 X10*3/uL (4.8-10.8)
[2023-10-14 06:19] LABS: Anion Gap 15 (12-20); Blood Urea Nitrogen 26 mg/dL (9-16); Carbon Dioxide 29 mmol/L (22-29); Chloride 95 mmol/L (96-108); Estimated Glomerular Filt Rate > 60; Glucose Random 216 mg/dL (60-115); Iron 74 mcg/dL (30-160); Percent Iron Saturation 28 % (15-50); Potassium 3.2 mmol/L (3.3-5.1); Sodium 136 mmol/L (135-145); Total Iron Binding Capacity 261 mcg/dL (228-428); Unsaturated Iron Binding 187 ug/dL
[2023-10-14 06:35] LABS: Ferritin 310 ng/mL (10-250); T4 Thyroxine 9.8 ug/dL (4.5-12.0); Thyroid Stimulating Hormone 0.08 uIU/mL (0.32-4.0)
[2023-10-14 06:50] LABS: Folate 9.9 ng/mL (> or = 4.0)
[2023-10-16 16:08] LABS: Transferrin 236 mg/dL (188-341)
== END 2023-10-14 05:47 | disposition home or self-care (01) ==
LOC: HO.MMNH3L 05:46
PROVIDERS: Visit Provider Family Medicine
DX: K57.90 Diverticulosis of intestine, part unspecified, without perforation or abscess without bleeding (principal)
CPT/HCPCS: 36415; 80048; 82306; 82728; 82746; 83540; 84436; 84443; 84466; 85025

== ENCOUNTER 2023-10-15 14:00 | Outpatient (REF) | payer MEDICARE, SELFPAY ==
[2023-10-16 07:44] LABS: Appearance Urine Clear; Color Urine Yellow; Glucose Urine UA 500 mg/dL (Negative); Leukocyte Esterase Urine Negative (Negative); Nitrite Urine Negative (Negative); Urine Blood Negative (Negative); Urine Ketones Negative (Negative); Urine Protein Negative (Neg-Trace)
== END 2023-10-15 14:01 | disposition home or self-care (01) ==
LOC: HO.MMNH3L 14:00
PROVIDERS: Visit Provider Family Medicine
DX: E11.9 Type 2 diabetes mellitus without complications (principal)
CPT/HCPCS: 81003; 87086

== ENCOUNTER 2023-10-22 15:57 | Outpatient (REF) | payer MEDICARE, MEDICAID, SELFPAY ==
[2023-10-22 16:15] LABS: Appearance Urine Clear; Color Urine Yellow; Glucose Urine UA Negative (Negative); Leukocyte Esterase Urine Negative (Negative); Nitrite Urine Negative (Negative); PH 5.5 (5.0-9.0); Urine Blood Negative (Negative); Urine Ketones Negative (Negative); Urine Protein Negative (Neg-Trace)
== END 2023-10-22 15:58 | disposition home or self-care (01) ==
LOC: HO.MMNH3L 15:57
PROVIDERS: Visit Provider Family Medicine
DX: Z13.89 Encounter for screening for other disorder (principal)
CPT/HCPCS: 81003; 87086; 87088; 87186

== ENCOUNTER 2023-12-07 06:32 | Outpatient (REF) | payer MEDICARE, MEDICAID, SELFPAY ==
[2023-12-07 07:02] LABS: Hematocrit 32.7 % (37.0-47.0); Hemoglobin 10.7 g/dl (12.0-16.0); Mean Corpuscular HGB Conc 32.7 g/dl (31.0-35.0); Mean Corpuscular Volume 100.9 fL (80.0-98.0); Mean Platelet Volume 9.2 fL (9.4-12.3); Platelet Count 244 X10*3/uL (160-400); Red Blood Count 3.24 X10*6/uL (4.20-5.50); White Blood Count 9.9 X10*3/uL (4.8-10.8)
[2023-12-07 07:27] LABS: Anion Gap 14 (12-20); Blood Urea Nitrogen 21 mg/dL (9-16); Calcium 9.7 mg/dL (8.4-10.2); Carbon Dioxide 31 mmol/L (22-29); Chloride 96 mmol/L (96-108); Estimated Glomerular Filt Rate > 60; Glucose Random 147 mg/dL (60-115); Potassium 3.6 mmol/L (3.3-5.1); Sodium 137 mmol/L (135-145)
[2023-12-07 07:44] LABS: Thyroid Stimulating Hormone 1.74 uIU/mL (0.32-4.0); Vitamin D 25-OH Total 20.4 ng/mL (>30)
[2023-12-07 08:04] LABS: Band Neutrophils Percent 0 % (3-5); Basophils Abs Manual 0.1 X10*3/uL (0.0-0.2); Basophils Percent Manual 1 % (0-2); Lymphocytes Absolute Manual 1.4 X10*3/uL (1.2-4.9); Lymphocytes Percent Manual 14 % (20-40); Metamyelocytes Absolute 0.2 X10*3/uL; Metamyelocytes Percent 2 %; Monocytes Absolute Manual 0.7 X10*3/uL (0.1-1.2); Monocytes Percent Manual 7 % (2-11); Myelocytes Absolute 0.3 X10*/uL; Myelocytes Percent 3 %; Neutrophils Absolute Manual 7.2 X10*3/uL (2.0-8.3); Neutrophils Percent Manual 73 % (45-73)
[2023-12-07 08:06] LABS: Platelet Estimate NORMAL (NORMAL); Platelet Morphology Comment NORMAL; RBC Morphology NORMAL
== END 2023-12-07 06:33 | disposition home or self-care (01) ==
LOC: HO.MMNH3L 06:32
PROVIDERS: Visit Provider Family Medicine
DX: E03.9 Hypothyroidism, unspecified (principal)
CPT/HCPCS: 36415; 80048; 82306; 84443; 85007; 85025; 85027

== ENCOUNTER 2024-02-16 05:10 | Outpatient (REF) | payer MEDICARE, SELFPAY ==
[2024-02-16 05:14] LABS: MANUAL DIFF FLAG NO
[2024-02-16 06:02] LABS: Basophils Absolute Auto 0.1 X10*3/uL (0.0-0.2); Basophils Percent Auto 0.6 % (0-2); Eosinophils Absolute Auto 0.2 X10*3/uL (0.0-0.4); Eosinophils Percent Auto 2.5 % (0-4); Hematocrit 30.9 % (37.0-47.0); Imm Gran Abs Auto 0.12 X10*3/uL (0.00-0.03); Imm Gran Pct Auto 1.3 % (0.0-0.4); Lymphocytes Absolute Auto 1.8 X10*3/uL (1.2-4.9); Lymphocytes Percent Auto 18.9 % (20-40); Mean Corpuscular HGB Conc 32.4 g/dl (31.0-35.0); Mean Corpuscular Hemoglobin 32.1 pg (27.0-33.0); Mean Platelet Volume 9.5 fL (9.4-12.3); Monocytes Absolute Auto 1.1 X10*3/uL (0.1-1.2); Monocytes Percent Auto 11.5 % (2-11); Neutrophils Absolute Auto 6.2 x10*3/uL (2.0-8.3); Neutrophils Percent Auto 65.2 % (45-73); Platelet Count 256 X10*3/uL (160-400); Red Blood Count 3.12 X10*6/uL (4.20-5.50); Red Cell Distribution Width 13.7 % (11.0-16.0); White Blood Count 9.4 X10*3/uL (4.8-10.8)
[2024-02-16 06:12] LABS: Anion Gap 15 (12-20); Blood Urea Nitrogen 22 mg/dL (9-16); Calcium 9.4 mg/dL (8.4-10.2); Carbon Dioxide 29 mmol/L (22-29); Chloride 101 mmol/L (96-108); Estimated Glomerular Filt Rate 59; Glucose Random 131 mg/dL (60-115); Potassium 3.1 mmol/L (3.3-5.1); Sodium 142 mmol/L (135-145)
== END 2024-02-16 05:11 | disposition home or self-care (01) ==
LOC: HO.MMNH3L 05:10
PROVIDERS: Visit Provider Family Medicine
DX: I10 Essential (primary) hypertension (principal)
CPT/HCPCS: 36415; 80048; 85025

== ENCOUNTER 2024-02-19 06:01 | Outpatient (REF) | payer MEDICARE, SELFPAY ==
[2024-02-19 06:04] LABS: MANUAL DIFF FLAG NO
[2024-02-19 06:35] LABS: Basophils Absolute Auto 0.1 X10*3/uL (0.0-0.2); Basophils Percent Auto 0.7 % (0-2); Eosinophils Absolute Auto 0.2 X10*3/uL (0.0-0.4); Hematocrit 33.4 % (37.0-47.0); Hemoglobin 10.8 g/dl (12.0-16.0); Imm Gran Abs Auto 0.13 X10*3/uL (0.00-0.03); Imm Gran Pct Auto 1.4 % (0.0-0.4); Lymphocytes Percent Auto 21.6 % (20-40); Mean Corpuscular HGB Conc 32.3 g/dl (31.0-35.0); Mean Corpuscular Hemoglobin 31.1 pg (27.0-33.0); Mean Corpuscular Volume 96.3 fL (80.0-98.0); Mean Platelet Volume 9.3 fL (9.4-12.3); Monocytes Absolute Auto 0.9 X10*3/uL (0.1-1.2); Monocytes Percent Auto 10.1 % (2-11); Neutrophils Absolute Auto 5.8 x10*3/uL (2.0-8.3); Neutrophils Percent Auto 64.2 % (45-73); Platelet Count 266 X10*3/uL (160-400); Red Blood Count 3.47 X10*6/uL (4.20-5.50); Red Cell Distribution Width 13.7 % (11.0-16.0)
[2024-02-19 06:37] LABS: Anion Gap 16 (12-20); Blood Urea Nitrogen 18 mg/dL (9-16); Calcium 9.3 mg/dL (8.4-10.2); Carbon Dioxide 27 mmol/L (22-29); Chloride 99 mmol/L (96-108); Estimated Glomerular Filt Rate > 60; Glucose Random 90 mg/dL (60-115); Potassium 3.2 mmol/L (3.3-5.1); Sodium 139 mmol/L (135-145)
[2024-02-19 07:04] LABS: B Type Natriuretic Peptide 107 pg/mL (<100)
== END 2024-02-19 06:02 | disposition home or self-care (01) ==
LOC: HO.MMNH3L 06:01
PROVIDERS: Visit Provider Internal Medicine
DX: R60.0 Localized edema (principal)
CPT/HCPCS: 36415; 80048; 83880; 85025

== ENCOUNTER 2024-02-22 06:08 | Outpatient (REF) | payer MEDICARE, SELFPAY ==
[2024-02-22 06:21] LABS: Anion Gap 14 (12-20); Blood Urea Nitrogen 18 mg/dL (9-16); Calcium 9.5 mg/dL (8.4-10.2); Carbon Dioxide 28 mmol/L (22-29); Chloride 101 mmol/L (96-108); Estimated Glomerular Filt Rate 51; Glucose Random 112 mg/dL (60-115); Potassium 3.4 mmol/L (3.3-5.1); Sodium 140 mmol/L (135-145)
== END 2024-02-22 06:09 | disposition home or self-care (01) ==
LOC: HO.MMNH3L 06:08
PROVIDERS: Visit Provider Family Medicine
DX: R60.0 Localized edema (principal)
CPT/HCPCS: 36415; 80048

== ENCOUNTER 2024-02-29 06:06 | Outpatient (REF) | payer MEDICARE, SELFPAY ==
[2024-02-29 06:02] LABS: MANUAL DIFF FLAG NO
[2024-02-29 06:37] LABS: Anion Gap 15 (12-20); Blood Urea Nitrogen 20 mg/dL (9-16); Calcium 9.4 mg/dL (8.4-10.2); Carbon Dioxide 30 mmol/L (22-29); Chloride 101 mmol/L (96-108); Estimated Glomerular Filt Rate 45; Glucose Random 139 mg/dL (60-115); Potassium 3.4 mmol/L (3.3-5.1); Sodium 143 mmol/L (135-145)
[2024-02-29 07:01] LABS: Basophils Absolute Auto 0.1 X10*3/uL (0.0-0.2); Basophils Percent Auto 0.6 % (0-2); Eosinophils Absolute Auto 0.2 X10*3/uL (0.0-0.4); Eosinophils Percent Auto 2.1 % (0-4); Hematocrit 34.8 % (37.0-47.0); Hemoglobin 11.1 g/dl (12.0-16.0); Imm Gran Abs Auto 0.07 X10*3/uL (0.00-0.03); Imm Gran Pct Auto 0.8 % (0.0-0.4); Lymphocytes Absolute Auto 2.1 X10*3/uL (1.2-4.9); Lymphocytes Percent Auto 22.8 % (20-40); Mean Corpuscular HGB Conc 31.9 g/dl (31.0-35.0); Mean Corpuscular Hemoglobin 30.9 pg (27.0-33.0); Mean Corpuscular Volume 96.9 fL (80.0-98.0); Mean Platelet Volume 9.4 fL (9.4-12.3); Monocytes Percent Auto 11.3 % (2-11); Neutrophils Absolute Auto 5.7 x10*3/uL (2.0-8.3); Neutrophils Percent Auto 62.4 % (45-73); Platelet Count 276 X10*3/uL (160-400); Red Blood Count 3.59 X10*6/uL (4.20-5.50); Red Cell Distribution Width 13.9 % (11.0-16.0); White Blood Count 9.1 X10*3/uL (4.8-10.8)
== END 2024-02-29 06:07 | disposition home or self-care (01) ==
LOC: HO.MMNH3L 06:06
PROVIDERS: Visit Provider Family Medicine
DX: R60.0 Localized edema (principal)
CPT/HCPCS: 36415; 80048; 85025

== ENCOUNTER 2024-03-29 06:25 | Outpatient (REF) | payer MEDICARE, MEDICAID, SELFPAY ==
[2024-03-29 05:55] LABS: MANUAL DIFF FLAG NO
[2024-03-29 06:35] LABS: Basophils Absolute Auto 0.1 X10*3/uL (0.0-0.2); Basophils Percent Auto 0.6 % (0-2); Eosinophils Absolute Auto 0.3 X10*3/uL (0.0-0.4); Eosinophils Percent Auto 2.6 % (0-4); Hematocrit 31.2 % (37.0-47.0); Hemoglobin 9.5 g/dl (12.0-16.0); Imm Gran Abs Auto 0.15 X10*3/uL (0.00-0.03); Imm Gran Pct Auto 1.5 % (0.0-0.4); Lymphocytes Absolute Auto 1.9 X10*3/uL (1.2-4.9); Lymphocytes Percent Auto 18.9 % (20-40); Mean Corpuscular HGB Conc 30.4 g/dl (31.0-35.0); Mean Corpuscular Hemoglobin 29.7 pg (27.0-33.0); Mean Corpuscular Volume 97.5 fL (80.0-98.0); Mean Platelet Volume 9.6 fL (9.4-12.3); Monocytes Absolute Auto 1.2 X10*3/uL (0.1-1.2); Monocytes Percent Auto 12.5 % (2-11); Neutrophils Absolute Auto 6.4 x10*3/uL (2.0-8.3); Neutrophils Percent Auto 63.9 % (45-73); Platelet Count 245 X10*3/uL (160-400); Red Cell Distribution Width 14.1 % (11.0-16.0)
[2024-03-29 07:05] LABS: Anion Gap 14 (12-20); Blood Urea Nitrogen 16 mg/dL (9-16); Carbon Dioxide 26 mmol/L (22-29); Chloride 104 mmol/L (96-108); Estimated Glomerular Filt Rate > 60; Glucose Random 90 mg/dL (60-115); Potassium 3.7 mmol/L (3.3-5.1); Sodium 140 mmol/L (135-145)
== END 2024-03-29 06:26 | disposition home or self-care (01) ==
LOC: HO.MMNH3L 06:25
PROVIDERS: Visit Provider Hospitalist
DX: I10 Essential (primary) hypertension (principal)
CPT/HCPCS: 36415; 80048; 85025

== ENCOUNTER 2024-04-04 06:01 | Outpatient (REF) | payer MEDICARE, MEDICAID, SELFPAY ==
[2024-04-04 06:04] LABS: MANUAL DIFF FLAG NO
[2024-04-04 06:53] LABS: Basophils Percent Auto 0.4 % (0-2); Eosinophils Absolute Auto 0.2 X10*3/uL (0.0-0.4); Eosinophils Percent Auto 1.8 % (0-4); Hemoglobin 9.5 g/dl (12.0-16.0); Imm Gran Abs Auto 0.07 X10*3/uL (0.00-0.03); Imm Gran Pct Auto 0.7 % (0.0-0.4); Lymphocytes Absolute Auto 1.7 X10*3/uL (1.2-4.9); Lymphocytes Percent Auto 17.3 % (20-40); Mean Corpuscular HGB Conc 30.6 g/dl (31.0-35.0); Mean Corpuscular Hemoglobin 29.4 pg (27.0-33.0); Mean Platelet Volume 9.7 fL (9.4-12.3); Monocytes Absolute Auto 1.1 X10*3/uL (0.1-1.2); Monocytes Percent Auto 11.3 % (2-11); Neutrophils Absolute Auto 6.8 x10*3/uL (2.0-8.3); Neutrophils Percent Auto 68.5 % (45-73); Platelet Count 239 X10*3/uL (160-400); Red Blood Count 3.23 X10*6/uL (4.20-5.50); Red Cell Distribution Width 14.1 % (11.0-16.0); White Blood Count 9.9 X10*3/uL (4.8-10.8)
[2024-04-04 07:04] LABS: Anion Gap 14 (12-20); Blood Urea Nitrogen 20 mg/dL (9-16); Carbon Dioxide 28 mmol/L (22-29); Chloride 101 mmol/L (96-108); Estimated Glomerular Filt Rate > 60; Glucose Random 141 mg/dL (60-115); Potassium 3.3 mmol/L (3.3-5.1); Sodium 140 mmol/L (135-145)
[2024-04-04 07:09] LABS: Vitamin D 25-OH Total 26.1 ng/mL (>30)
== END 2024-04-04 06:02 | disposition home or self-care (01) ==
LOC: HO.MMNH3L 06:01
PROVIDERS: Visit Provider Family Medicine
DX: I10 Essential (primary) hypertension (principal)
CPT/HCPCS: 36415; 80048; 82306; 85025

== ENCOUNTER 2024-08-01 06:18 | Outpatient (REF) | payer MEDICARE, SELFPAY ==
[2024-08-01 06:03] LABS: MANUAL DIFF FLAG NO
--- OUTSIDE RECORDS SUMMARY | 2024-08-01 06:25 | XMS_ITS | Clinical Summary ---
Author Organization Unknown Care Team Providers Care Gas Regulator Repairer Name Role Phone MAGI BORREGO, ARIANNA Unavailable Unavailable BANDAR PT, SRIDHAR Unavailable Unavailable LUIPPOLD AUTO STRIPER, BURT Unavailable Unavailable FRANKL ASSISTANT BRANCH OPERATIONS MANAGER, VICTORINO Unavailable Unavailable [place]OL[place]AN OT, DALLAS Unavailable Unavailable MBURU AUTO STRIPER, MITALI Unavailable Unavailable CLOONAN AUTO STRIPER, EDWARD Unavailable Unavailable DREW ASSISTANT BRANCH OPERATIONS MANAGER, CHI Unavailable Unavailable MELISA SALAZAR, EVENS Unavailable Unavailable DAVID AUTO STRIPER, SHANTI Unavailable Unavailable CONDINO JONATHAN/AMES, MALIKA Unavailable Unav ailable Payers Payer Name Policy Type Policy Number Effective Date Expira tion Date MEDICARE.NGS.PDGM [id number] Problems Condition Name Condition Details Condition Category Status Onset Date Resolution Date Last Treatment Date Treating Clinician Comments UNSPECIFIED OPEN WOUND, RIGHT LOWER LEG, SUBS ENCNTR Active 08-01 00:00: 00 ESSENTIAL (PRIMARY) HYPERTENSION Active 01-21 00:00: 00 UNSPECIFIED ATRIAL FIBRILLATION Active 01-21 00:00: 00 HYPOTHYROIDI SM, UNSPECIFIED Active 01-21 00:00: 00 MAJOR DEPRESSIVE DISORDER, SINGLE EPISODE, UNSPECIFIED Active 01-21 00:00: 00 OTHER CHRONIC PANCREATITIS Active 01-21 00:00: 00 INSOMNIA, UNSPECIFIED Active 01-21 00:00: 00 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 STEWARD (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 ANTICOAGULAN TS Active 01-21 00:00: 00 SECOND STEWARD (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 SYSTEMIC STEROIDS Active 01-21 00:00: 00 PERSONAL HISTORY OF PULMONARY EMBOLISM Active 01-21 00:00: 00 PERSONAL HISTORY OF OTHER VENOUS THROMBOSIS AND EMBOLISM Active 01-21 00:00: 00 Allergies, Adverse Reactions, Alerts Allergy Name Allergy Type Status Severity Reaction(s) Onset Date Inactive Date Treating Clinician Comments DEMEROL Propensity to adverse reactions Active 2021-0 7-24 09:20: 35 OXYCODONE 10MG Propensity to adverse reactions Active 02-16 09:20: 47 MORPHINE Propensity to adverse reactions Active 02-16 09:21: 06 PHENERAGAN Propensity to adverse reactions Active 02-16 09:21: 15 Medications Ordered Medication Name Filled Medication Name Start Date Stop Date Current Medication? Ordering Clinician Indication Dosage Frequency Signature (SIG) Comments Components prednisone 5 mg tablet 12-20 00:00: 00 Yes [id number] PANNICULITI S 2 tablet 2 TIMES DAILY 2 tablet 2 TIMES DAILY (route: oral) Med Classific ation: Endocrine spironolact one 25 mg tablet 11-14 00:00: 00 02-14 23:59 :00 No [id number] BP 1 tablet DAILY 1 tablet DAILY (route: oral) Med Classific ation: Cardiovas cular Therapy Agents bupropion HCl SR 150 mg tablet,12 hr sustained-r elease 10-18 00:00: 00 Yes [id number] DEPRESSION 1 tablet 2 TIMES DAILY 1 tablet 2 TIMES DAILY (route: oral) Med Classific ation: Central Nervous System Agents lisinopril 10 mg tablet 12-17 00:00: 00 02-14 23:59 :00 No [id number] BP 1 tablet DAILY 1 tablet DAILY (route: oral) Med Classific ation: Cardiovas cular Therapy Agents omeprazole 40 mg capsule,del ayed release 11-19 00:00: 00 Yes [id number] GERD 1 capsule 2 TIMES DAILY 1 capsule 2 TIMES DAILY (route: oral) Med Classific ation: Gastroint estinal Therapy Agents methotrexat e sodium 2.5 mg tablet 12-11 00:00: 00 Yes [id number] MESSENTERIC PANNICULITI S 4 tablet WEEKLY 4 tablet WEEKLY (route: oral) Med Classific ation: Antineopl astics trazodone 50 mg tablet 10-24 00:00: 00 Yes [id number] SLEEP 1 tablet BEDTIME 1 tablet BEDTIME (route: oral) Med Classific ation: Central Nervous System Agents fluconazole 200 mg tablet 6-04 00:00: 00 Yes [id number] ANTIFUNGAL Per instruc tions EVERY Per instructio ns EVERY (route: oral) Med Classific ation: Anti-Infe ctive Agents tizanidine 2 mg capsule 01-08 00:00: 00 02-14 23:59 :00 No [id number] SPASMS 1 capsule DAILY 1 capsule DAILY (route: oral) Med Classific ation: Locomotor System gabapentin 300 mg capsule 11-22 00:00: 00 Yes [id number] NERVE PAIN 1 capsule 3 TIMES DAILY 1 capsule 3 TIMES DAILY (route: oral) Med Classific ation: Central Nervous System Agents alendronate 70 mg tablet 11-20 00:00: 00 Yes [id number] BONE HEALTH 1 tablet WEEKLY 1 tablet WEEKLY (route: oral) Med Classific ation: Endocrine FreeStyle Lite Strips 11-16 00:00: 00 02-14 23:59 :00 No [id number] PREDIABETES 1 strip TEST BLOOD SUGAR TWICE DAILY 1 strip TEST BLOOD SUGAR TWICE DAILY (route: miscellane ous) Med Classific ation: Medical Supplies and Durable Medical Equipment (DME) Colace 100 mg capsule 02-15 00:00: 00 Yes [id number] CONSTIPATIO N 1 capsule 2 TIMES DAILY 1 capsule 2 TIMES DAILY (route: oral) Med Classific ation: Gastroint estinal Therapy Agents Eliquis 5 mg tablet 02-15 00:00: 00 Yes [id number] BLOOD THINNER 1 tablet 2 TIMES DAILY 1 tablet 2 TIMES DAILY (route: oral) Med Classific ation: Hematolog ical Agents ferrous sulfate 325 mg (65 mg iron) tablet 02-15 00:00: 00 Yes [id number] ANEMIA 1 tablet 2 TIMES DAILY 1 tablet 2 TIMES DAILY (route: oral) Med Classific ation: Electroly te Balance-N utritiona l Products folic acid 0.8 mg capsule 02-15 00:00: 00 Yes [id number] SUPPLEMENT 1 capsule DAILY 1 capsule DAILY (route: oral) Med Classific ation: Electroly te Balance-N utritiona l Products levothyroxi ne 200 mcg capsule 02-15 00:00: 00 Yes [id number] THYROID 1 capsule DAILY 1 capsule DAILY (route: oral) Med Classific ation: Endocrine metoprolol tartrate 25 mg tablet 02-15 00:00: 00 Yes [id number] BP,AFIB 0.5 tablet 2 TIMES DAILY 0.5 tablet 2 TIMES DAILY (route: oral) Med Classific ation: Cardiovas cular Therapy Agents tramadol 50 mg tablet 02-15 00:00: 00 Yes [id number] PAIN 1 tablet 4 TIMES DAILY 1 tablet 4 TIMES DAILY (route: oral) Med Classific ation: Analgesic , Anti-infl ammatory or Antipyret ic Trexall 15 mg tablet 02-15 00:00: 00 Yes [id number] IMMUNOSUPPR ESSANT 1 tablet WEEKLY 1 tablet WEEKLY (route: oral) Med Classific ation: Antineopl astics Ure-Na 15 gram oral powder packet 02-15 00:00: 00 Yes [id number] HYPONATREMI A 1 powder in packet DAILY 1 powder in packet DAILY (route: oral) Med Classific ation: Cardiovas cular Therapy Agents furosemide 40 mg tablet 02-26 00:00: 00 Yes [id number] EDEMA MANAGEMENT 1 tablet DAILY 1 tablet DAILY (route: oral) Med Classific ation: Cardiovas cular Therapy Agents Bactrim DS 800 mg-160 mg tablet 2020-07 008 00:00: 00 05-10 23:59 :00 No [id number] ANTIBIOTIC 1 tablet 2 TIMES DAILY 1 tablet 2 TIMES DAILY (route: oral) Med Classific ation: Anti-Infe ctive Agents doxycycline hyclate 100 mg tablet 2020-07 0-12 00:00: 00 05-17 23:59 :00 No [id number] ABX 1 tablet 2 TIMES DAILY 1 tablet 2 TIMES DAILY (route: oral) Med Classific ation: Anti-Infe ctive Agents Vital Signs Vital Name Observation Time Observation Value Commen ts Temperature 2021-09-05 13:14:00.000 97 [degF] Temperature 2021-09-02 12:27:00.000 97 [degF] Temperature 2021-08-29 11:17:00.000 97 [degF] Temperature 2021-08-26 11:19:00.000 98.2 [degF] Temperature 2021-08-22 11:07:00.000 98.3 [degF] Temperature 2021-08-19 12:22:00.000 97.2 [degF] Temperature 2021-08-15 09:19:00.000 97.3 [degF] Pulse 2021-09-05 13:14:00.000 60 /min Pulse 2021-09-02 12:27:00.000 63 /min Pulse 2021-08-29 11:17:00.000 77 /min Pulse 2021-08-26 11:19:00.000 68 /min Pulse 2021-08-22 11:07:00.000 71 /min Pulse 2021-08-19 12:22:00.000 62 /min Pulse 2021-08-15 09:19:00.000 72 /min O2 Saturation (%) 2021-09-05 13:14:00.000 97 % O2 Saturation (%) 2021-09-02 12:27:00.000 96 % O2 Saturation (%) 2021-08-29 11:17:00.000 97 % O2 Saturation (%) 2021-08-26 11:19:00.000 97 % O2 Saturation (%) 2021-08-22 11:07:00.000 97 % O2 Saturation (%) 2021-08-19 12:22:00.000 98 % O2 Saturation (%) 2021-08-15 09:19:00.000 98 % Respirations 2021-09-05 13:14:00.000 18 /min Respirations 2021-09-02 12:27:00.000 18 /min Respirations 2021-08-29 11:17:00.000 18 /min Respirations 2021-08-26 11:19:00.000 18 /min Respirations 2021-08-22 11:07:00.000 18 /min Respirations 2021-08-19 12:22:00.000 18 /min Respirations 2021-08-15 09:19:00.000 18 /min Systolic Blood Pressure 2021-09-05 13:14:00.000 132 mm [Hg] Systolic Blood Pressure 2021-09-02 12:27:00.000 110 mm [Hg] Systolic Blood Pressure 2021-08-29 11:17:00.000 118 mm [Hg] Systolic Blood Pressure 2021-08-26 11:19:00.000 116 mm [Hg] Systolic Blood Pressure 2021-08-22 11:07:00.000 110 mm [Hg] Systolic Blood Pressure 2021-08-19 12:22:00.000 118 mm [Hg] Systolic Blood Pressure 2021-08-15 09:19:00.000 122 mm [Hg] Diastolic Blood Pressure 2021-09-05 13:14:00.000 68 mm [Hg] Diastolic Blood Pressure 2021-09-02 12:27:00.000 64 mm [Hg] Diastolic Blood Pressure 2021-08-29 11:17:00.000 67 mm [Hg] Diastolic Blood Pressure 2021-08-26 11::00.000 64 mm [Hg] Diastolic Blood Pressure 2021-08-22 11:07:00.000 67 mm [Hg] Diastolic Blood Pressure 2021-08-19 12:22:00.000 64 mm [Hg] Diastolic Blood Pressure 2021-08-15 09:19:00.000 64 mm [Hg] Plan of Treatment Planned Activity Planned Date Details Comments Future Scheduled Test SKILLED NU RSE TO ASSESS, EVALUATE, AND DEVELOP AN INDIVIDUALIZED PLAN OF CARE. AGENCY MAY ACCEPT ORDERS FROM CONSULTING PHYSICIANS DR. SOW. TO OBSERVE/ASSESS RISK FOR FALLS AND INSTRUCT IN FALL PREVENTION, HOME SAFETY, MEDICATION MANAGEMENT, INFECTION PREVENTION, AND NUTRITION MANAGEMENT. SN MAY PERFORM O2 SATURATION LEVEL ON ADMISSION AND PRN TO ASSESS PATIENT, WITH NOTIFICATION TO THE PHYSICIAN IF SATURATION IS 90% IN THE ABSENCE OF MORE SPECIFIC PARAMETERS FROM THE PHYSICIAN. AGENCY MAY PERFORM A RESUMPTION OF CARE VISIT FOLLOWING ANY HOSPITAL ADMISSION. SKILLED NURSE TO ASSESS/EVALUATE CO-MORBID CONDITIONS AND ANY NEW CONDITIONS THAT PRESENT THEMSELVES DURING THIS EPISODE TO IDENTIFY CHANGES AND INTERVENE TO MINIMIZE COMPLICATIONS. [code = SKILLED NURSE TO ASSESS, EVALUATE, AND DEVELOP AN INDIVIDUALIZED PLAN OF CARE. AGENCY MAY ACCEPT ORDERS FROM CONSULTING PHYSICIANS DR. SOW. TO OBSERVE/ASSESS RISK FOR FALLS AND INSTRUCT IN FALL PREVENTION, HOME SAFETY, MEDICATION MANAGEMENT, INFECTION PREVENTION, AND NUTRITION MANAGEMENT. SN MAY PERFORM O2 SATURATION LEVEL ON ADMISSION AND PRN TO ASSESS PATIENT, WITH NOTIFICATION TO THE PHYSICIAN IF SATURATION IS 90% IN THE ABSENCE OF MORE SPECIFIC PARAMETERS FROM THE PHYSICIAN. AGENCY MAY PERFORM A RESUMPTION OF CARE VISIT FOLLOWING ANY HOSPITAL ADMISSION. SKILLED NURSE TO ASSESS/EVALUATE CO-MORBID CONDITIONS AND ANY NEW CONDITIONS THAT PRESENT THEMSELVES DURING THIS EPISODE TO IDENTIFY CHANGES AND INTERVENE TO MINIMIZE COMPLICATIONS.] Future Scheduled Test MEDICATION MANAGEMENT; SKILLED NURSE TO REVIEW MEDICATIONS FOR INTERACTIONS, EFFECTIVENESS OF DRUG THERAPY, AND SIGNS/SYMPTOMS OF ADVERSE REACTIONS. MAY INSTRUCT AND REINFORCE MEDICATION TEACHING RELATED TO THE USE OF MEDICATIONS, DOSAGE, FREQUENCY, PURPOSE, SIDE EFFECTS, AND TO REPORT COMPLICATIONS. [code = MEDICATION MANAGEMENT; SKILLED NURSE TO REVIEW MEDICATIONS FOR INTERACTIONS, EFFECTIVENESS OF DRUG THERAPY, AND SIGNS/SYMPTOMS OF ADVERSE REACTIONS. MAY INSTRUCT AND REINFORCE MEDICATION TEACHING RELATED TO THE USE OF MEDICATIONS, DOSAGE, FREQUENCY, PURPOSE, SIDE EFFECTS, AND TO REPORT COMPLICATIONS.] Future Scheduled Test RISK FOR H OSPITALIZATION; SKILLED NURSE TO INSTRUCT PATIENT/CAREGIVER ON RISK FOR HOSPITALIZATION, TEACH SIGNS AND SYMPTOMS THAT PUT PATIENT AT RISK, WHEN TO NOTIFY NURSE OF COMPLICATIONS/DECLINE, AND WHEN TO CALL 911. SKILLED NURSE TO INSTRUCT PATIENT/CAREGIVER ON: SIGNS AND SYMPTOMS TO BE ON ALERT FOR EARLY INTERVENTION, PRIOR TO NEEDING EMERGENCY SERVICES CALL [facility] NURSE TO KEEP BIOFUELS ENGINEERING MANAGER SYMPTOM REPORT FOR VISIBLE REFERENCE NOTIFY SKILLED NURSE/PHYSICIAN FOR DECLINE IN STATS WHEN AND HOW TO CALL HOME HEALTH AGENCY FACILITATE PHYSICIAN FOLLOW UP APPOINTMENT IDENTIFY SOCIOECONOMIC CONCERNS AND MAKE APPROPRIATE REFERRAL NEEDED [code = RISK FOR HOSPITALIZATION; SKILLED NURSE TO INSTRUCT PATIENT/CAREGIVER ON RISK FOR HOSPITALIZATION, TEACH SIGNS AND SYMPTOMS THAT PUT PATIENT AT RISK, WHEN TO NOTIFY NURSE OF COMPLICATIONS/DECLINE, AND WHEN TO CALL 911. SKILLED NURSE TO INSTRUCT PATIENT/CAREGIVER ON: SIGNS AND SYMPTOMS TO BE ON ALERT FOR EARLY INTERVENTION, PRIOR TO NEEDING EMERGENCY SERVICES CALL [facility] NURSE TO KEEP BIOFUELS ENGINEERING MANAGER SYMPTOM REPORT FOR VISIBLE REFERENCE NOTIFY SKILLED NURSE/PHYSICIAN FOR DECLINE IN STATS WHEN AND HOW TO CALL HOME HEALTH AGENCY FACILITATE PHYSICIAN FOLLOW UP APPOINTMENT IDENTIFY SOCIOECONOMIC CONCERNS AND MAKE APPROPRIATE REFERRAL NEEDED] Future Scheduled Test SN TO PERF ORM VENOUS STASIS ULCER CARE TO RIGHT OUTER LOWER LEG AREA: CLEANSE WITH WOUND WASH, APPLY MOISTENED HYDRAFERABLUE, MAY APPLY SKIN BARRIER TO PERIWOUND AREA PRN TO PREVENT SKIN MACERATION AND PROTECT PERIWOUND, COVER WITH UNNA BOOT AND COBAN WRAP. CHANGE DRESSING 2X/WEEK AND PRN FOR DISLODGEMENT. [code = SN TO PERFORM VENOUS STASIS ULCER CARE TO RIGHT OUTER LOWER LEG AREA: CLEANSE WITH WOUND WASH, APPLY MOISTENED HYDRAFERABLUE, MAY APPLY SKIN BARRIER TO PERIWOUND AREA PRN TO PREVENT SKIN MACERATION AND PROTECT PERIWOUND, COVER WITH UNNA BOOT AND COBAN WRAP. CHANGE DRESSING 2X/WEEK AND PRN FOR DISLODGEMENT. ] Future Scheduled Test FALL REDUC TION MANAGEMENT; NURSING TO PROVIDE SKILLED ASSESSMENT, EDUCATION, AND INTERVENTION TO IDENTIFY FALL RISK FACTORS SUCH MEDICATIONS THAT MAY CAUSE DIZZINESS, CHRONIC DISEASES, PSYCHOLOGICAL FACTORS, AND EMPOWER/EDUCATE PATIENT/CAREGIVER TO MINIMIZE FALL RISK. [code = FALL REDUCTION MANAGEMENT; NURSING TO PROVIDE SKILLED ASSESSMENT, EDUCATION, AND INTERVENTION TO IDENTIFY FALL RISK FACTORS SUCH MEDICATIONS THAT MAY CAUSE DIZZINESS, CHRONIC DISEASES, PSYCHOLOGICAL FACTORS, AND EMPOWER/EDUCATE PATIENT/CAREGIVER TO MINIMIZE FALL RISK.] Future Scheduled Test PATIENT RE CERTIFIED. PATIENT CUT OFF PREVIOUS UNNA BOOT DUE TO PAIN FROM SWELLING. PATIENT'S WOUND HAS LESS DEPTH. PATIENT EDUCATED ON THE IMPORTANCE OF MANAGING EDEMA TO PROMOTE WOUND HEALING. PATIENT VERBALIZED UNDERSTANDING BUT STATED IT WAS TOO MUCH TO ASK. I CAN'T SIT ALL DAY WITH MY LEGS IN THE AIR. PATIENT WILL REQUIRE MUCH REINFORCEMENT, ENCOURAGEMENT AND REPETITION TO BE MORE COMPLIANT. DR. SOW CALLED AND RECERTIFICATION DISCUSSED. DOCTOR IS IN AGREEMENT WITH RECERTIFICATION. PATIENT IS HOMEBOUND DUE TO IMPAIRED MOBILITY AND POOR ENDURANCE FROM LOWER EXTREMITY EDEMA AND WOUND. [code = PATIENT RECERTIFIED. PATIENT CUT OFF PREVIOUS UNNA BOOT DUE TO PAIN FROM SWELLING. PATIENT'S WOUND HAS LESS DEPTH. PATIENT EDUCATED ON THE IMPORTANCE OF MANAGING EDEMA TO PROMOTE WOUND HEALING. PATIENT VERBALIZED UNDERSTANDING BUT STATED IT WAS TOO MUCH TO ASK. I CAN'T SIT ALL DAY WITH MY LEGS IN THE AIR. PATIENT WILL REQUIRE MUCH REINFORCEMENT, ENCOURAGEMENT AND REPETITION TO BE MORE COMPLIANT. DR. SOW CALLED AND RECERTIFICATION DISCUSSED. DOCTOR IS IN AGREEMENT WITH RECERTIFICATION. PATIENT IS HOMEBOUND DUE TO IMPAIRED MOBILITY AND POOR ENDURANCE FROM LOWER EXTREMITY EDEMA AND WOUND.] Goal 2021-02-26 Patient Goal - TO WALK EASIE R Goal 2021-06-13 Patient Goal - TO WALK EASIE R Goal 2021-04-11 Patient Goal - TO WALK EASIE R Goal 2021-08-12 Patient Goal - TO WALK EASIE R Goal 2021-09-05 Patient Goal - TO WALK EASIE R Goal Provider Goal - A PLAN OF CARE WILL BE ESTABLISHED THAT MEETS THE PATIENTS NEEDS. PATIENT WILL DEMONSTRATE OXYGEN SATURATION WITHIN NORMAL LIMITS OR PATIENTS OPTIMAL LEVEL ESTABLISHED BY THE PHYSICIAN THROUGHOUT CARE. CHANGES TO CO-MORBID CONDITIONS AND ANY NEW CONDITIONS WILL BE IDENTIFIED AND REPORTED TO THE PHYSICIAN. Goal Provider Goal - PATIENT/CAREGIVER TO VERBALIZE, AND CONSISTENTLY DEMONSTRATE EFFECTIVE, SAFE MANAGEMENT OF MEDICATION INCLUDING KNOWLEDGE OF EFFECTIVENESS, POTENTIAL SIDE EFFECTS AND DRUG REACTIONS AND WHEN TO CONTACT THE APPROPRIATE CARE PROVIDER. PATIENT/CAREGIVER WILL BE ABLE TO VERBALIZE UNDERSTANDING OF MEDICATION REGIMEN AND ACCURATELY TAKE MEDICATIONS PRESCRIBED WITHOUT ADVERSE EFFECTS BY 10/12/21. Goal Provider Goal - PATIENT/CAREGIVER WILL VERBALIZE UNDERSTANDING OF SIGNS AND SYMPTOMS THAT PUT THE PATIENT AT RISK FOR HOSPITALIZATION, WHEN TO NOTIFY SN OF COMPLICATIONS/DECLINE AND WHEN TO CALL 911. Goal Provider Goal - PATIENT / CAREGIVER WILL VERBALIZE UNDERSTANDING OF VENOUS STASIS ULCER INCLUDING BUT NOT LIMITED TO DEFINITION, SIGNS AND SYMPTOMS OF COMPLICATIONS AND PRESCRIBED TREATMENT REGIME BY 10/12/21. Goal Provider Goal - PATIENT/CAREGIVER ABLE TO IDENTIFY FALL RISK FACTORS AND IMPLEMENT STRATEGIES TO MINIMIZE FALL RISK. PATIENT/CAREGIVER WILL VERBALIZE/DEMONSTRATE AN ABILITY TO ADHERE TO FALL REDUCTION SELF MANAGEMENT AND LIFE-STYLE CHANGES AT DISCHARGE. PERSONAL GOAL(S) STATED BY PATIENT/CAREGIVER WILL BE MET BY 10/12/21. Reason for Visit [facility] THE COMM[facility]ITY Encounters Start Date/Time End Date/Time Encounter Type Admission Type Attending [facility] Care Department Encounter ID Discharge Date Discharge Status Discharge Condition Discharge Reason Percent Goals Met 2021-02-15 00:00:00 2021-09-05 00:00:00 Outpatient [facility]ERT[facility] [id number] 2021-09-05 00:00:00 DISCHARGE TO HOME OR SELF CARE INDEPENDEN T IN THE COMMUNITY HH OR [facility]- GOALS MET 100.00
--- OUTSIDE RECORDS SUMMARY | 2024-08-01 06:26 | XMS_ITS | Clinical Summary ---
Author Organization Unknown Care Team Providers Care Building And Construction Manager Name Role Phone MAGI BORREGO, ARIANNA Unavailable Unavailable BANDAR PT, SRIDHAR Unavailable Unavailable LUIPPOLD MEDICAL OFFICE SECRETARY, BURT Unavailable Unavailable FRANKL GAS WELDING EQUIPMENT MECHANIC, VICTORINO Unavailable Unavailable [place]OL[place]AN OT, DALLAS Unavailable Unavailable MBURU MEDICAL OFFICE SECRETARY, MITALI Unavailable Unavailable CLOONAN MEDICAL OFFICE SECRETARY, EDWARD Unavailable Unavailable DREW GAS WELDING EQUIPMENT MECHANIC, CHI Unavailable Unavailable MELISA SALAZAR, EVENS Unavailable Unavailable DAVID MEDICAL OFFICE SECRETARY, SHANTI Unavailable Unavailable CONDINO JONATHAN/AMES, MALIKA Unavailable Unav ailable Payers Payer Name Policy Type Policy Number Effective Date Expira tion Date MEDICARE.NGS.PDGM [id number] Problems Condition Name Condition Details Condition Category [...] 00 INSOMNIA, UNSPECIFIED Active 01-21 00:00: 00 REHAB RN (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 ANTICOAGULAN TS Active 01-21 00:00: 00 REHAB RN (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 SYSTEMIC STEROIDS Active 01-21 [...] 5 mg tablet 12-20 00:00: 00 Yes [id number] PANNICULITI S 2 tablet 2 TIMES DAILY 2 tablet 2 TIMES DAILY (route: oral) Med Classific ation: Endocrine spironolact one 25 mg tablet 11-14 00:00: 00 02-14 23:59 :00 No [id number] BP 1 tablet DAILY 1 tablet DAILY (route: oral) Med Classific ation: Cardiovas cular Therapy Agents bupropion HCl SR 150 mg tablet,12 hr sustained-r elease 10-18 00:00: 00 Yes [id number] DEPRESSION 1 tablet 2 TIMES DAILY 1 tablet 2 TIMES DAILY (route: oral) Med Classific ation: Central Nervous System Agents lisinopril 10 mg tablet 12-17 00:00: 00 02-14 23:59 :00 No [id number] BP 1 tablet DAILY 1 tablet DAILY (route: oral) Med Classific ation: Cardiovas cular Therapy Agents omeprazole 40 mg capsule,del ayed release 11-19 00:00: 00 Yes [id number] GERD 1 capsule 2 TIMES DAILY 1 capsule 2 TIMES DAILY (route: oral) Med Classific ation: Gastroint estinal Therapy Agents methotrexat e sodium 2.5 mg tablet 12-11 00:00: 00 Yes [id number] MESSENTERIC PANNICULITI S 4 tablet WEEKLY 4 tablet WEEKLY (route: oral) Med Classific ation: Antineopl astics trazodone 50 mg tablet 10-24 00:00: 00 Yes [id number] SLEEP 1 tablet BEDTIME 1 tablet BEDTIME (route: oral) Med Classific ation: Central Nervous System Agents fluconazole 200 mg tablet 6-04 00:00: 00 Yes [id number] ANTIFUNGAL Per instruc tions EVERY Per instructio ns EVERY (route: oral) Med Classific ation: Anti-Infe ctive Agents tizanidine 2 mg capsule 01-08 00:00: 00 02-14 23:59 :00 No [id number] SPASMS 1 capsule DAILY 1 capsule DAILY (route: oral) Med Classific ation: Locomotor System gabapentin 300 mg capsule 11-22 00:00: 00 Yes [id number] NERVE PAIN 1 capsule 3 TIMES DAILY 1 capsule 3 TIMES DAILY (route: oral) Med Classific ation: Central Nervous System Agents alendronate 70 mg tablet 11-20 00:00: 00 Yes [id number] BONE HEALTH 1 tablet WEEKLY 1 tablet WEEKLY (route: oral) Med Classific ation: Endocrine FreeStyle Lite Strips 11-16 00:00: 00 02-14 23:59 :00 No [id number] PREDIABETES 1 strip TEST BLOOD SUGAR TWICE DAILY 1 strip TEST BLOOD SUGAR TWICE DAILY (route: miscellane ous) Med Classific ation: Medical Supplies and Durable Medical Equipment (DME) Colace 100 mg capsule 02-15 00:00: 00 Yes [id number] CONSTIPATIO N 1 capsule 2 TIMES DAILY 1 capsule 2 TIMES DAILY (route: oral) Med Classific ation: Gastroint estinal Therapy Agents Eliquis 5 mg tablet 02-15 00:00: 00 Yes [id number] BLOOD THINNER 1 tablet 2 TIMES DAILY 1 tablet 2 TIMES DAILY (route: oral) Med Classific ation: Hematolog ical Agents ferrous sulfate 325 mg (65 mg iron) tablet 02-15 00:00: 00 Yes [id number] ANEMIA 1 tablet 2 TIMES DAILY 1 tablet 2 TIMES DAILY (route: oral) Med Classific ation: Electroly te Balance-N utritiona l Products folic acid 0.8 mg capsule 02-15 00:00: 00 Yes [id number] SUPPLEMENT 1 capsule DAILY 1 capsule DAILY (route: oral) Med Classific ation: Electroly te Balance-N utritiona l Products levothyroxi ne 200 mcg capsule 02-15 00:00: 00 Yes [id number] THYROID 1 capsule DAILY 1 capsule DAILY (route: oral) Med Classific ation: Endocrine metoprolol tartrate 25 mg tablet 02-15 00:00: 00 Yes [id number] BP,AFIB 0.5 tablet 2 TIMES DAILY 0.5 tablet 2 TIMES DAILY (route: oral) Med Classific ation: Cardiovas cular Therapy Agents tramadol 50 mg tablet 02-15 00:00: 00 Yes [id number] PAIN 1 tablet 4 TIMES DAILY 1 tablet 4 TIMES DAILY (route: oral) Med Classific ation: Analgesic , Anti-infl ammatory or Antipyret ic Trexall 15 mg tablet 02-15 00:00: 00 Yes [id number] IMMUNOSUPPR ESSANT 1 tablet WEEKLY 1 tablet WEEKLY (route: oral) Med Classific ation: Antineopl astics Ure-Na 15 gram oral powder packet 02-15 00:00: 00 Yes [id number] HYPONATREMI A 1 powder in packet DAILY 1 powder in packet DAILY (route: oral) Med Classific ation: Cardiovas cular Therapy Agents furosemide 40 mg tablet 02-26 00:00: 00 Yes [id number] EDEMA MANAGEMENT 1 tablet DAILY 1 tablet DAILY (route: oral) Med Classific ation: Cardiovas cular Therapy Agents Bactrim DS 800 mg-160 mg tablet 2020-07 008 00:00: 00 05-10 23:59 :00 No [id number] ANTIBIOTIC 1 tablet 2 TIMES DAILY 1 tablet 2 TIMES DAILY (route: oral) Med Classific ation: Anti-Infe ctive Agents doxycycline hyclate 100 mg tablet 2020-07 0-12 00:00: 00 05-17 23:59 :00 No [id number] ABX 1 tablet 2 TIMES DAILY 1 [...] EMERGENCY SERVICES CALL [facility] NURSE TO KEEP BAND BIAS MACHINE OPERATOR SYMPTOM REPORT FOR VISIBLE REFERENCE NOTIFY SKILLED [...] EMERGENCY SERVICES CALL [facility] NURSE TO KEEP BAND BIAS MACHINE OPERATOR SYMPTOM REPORT FOR VISIBLE REFERENCE NOTIFY SKILLED [...] End Date/Time Encounter Type Admission Type Attending [facility] Care Department Encounter ID Discharge Date Discharge Status Discharge Condition Discharge Reason Percent Goals Met 2021-02-15 00:00:00 2021-09-05 00:00:00 Outpatient RECERTIFIC [facility] [id number] 2021-09-05 00:00:00 DISCHARGE TO HOME OR SELF CARE INDEPENDEN T IN THE COMMUNITY HH OR [facility]- GOALS MET 100.00
[2024-08-01 06:39] LABS: Basophils Absolute Auto 0.1 X10*3/uL (0.0-0.2); Basophils Percent Auto 0.5 % (0-2); Eosinophils Absolute Auto 0.2 X10*3/uL (0.0-0.4); Eosinophils Percent Auto 2.1 % (0-4); Hematocrit 37.9 % (37.0-47.0); Imm Gran Abs Auto 0.05 X10*3/uL (0.00-0.03); Imm Gran Pct Auto 0.5 % (0.0-0.4); Lymphocytes Absolute Auto 2.2 X10*3/uL (1.2-4.9); Lymphocytes Percent Auto 22.1 % (20-40); Mean Corpuscular HGB Conc 31.7 g/dl (31.0-35.0); Mean Corpuscular Hemoglobin 28.4 pg (27.0-33.0); Mean Corpuscular Volume 89.6 fL (80.0-98.0); Mean Platelet Volume 9.3 fL (9.4-12.3); Monocytes Percent Auto 10.2 % (2-11); Neutrophils Absolute Auto 6.4 x10*3/uL (2.0-8.3); Neutrophils Percent Auto 64.6 % (45-73); Platelet Count 240 X10*3/uL (160-400); Red Blood Count 4.23 X10*6/uL (4.20-5.50); Red Cell Distribution Width 17.1 % (11.0-16.0); White Blood Count 9.9 X10*3/uL (4.8-10.8)
[2024-08-01 06:55] LABS: Anion Gap 15 (12-20); Blood Urea Nitrogen 19 mg/dL (9-16); Calcium 9.5 mg/dL (8.4-10.2); Carbon Dioxide 27 mmol/L (22-29); Chloride 101 mmol/L (96-108); Estimated Glomerular Filt Rate 50; Glucose Random 113 mg/dL (60-115); Potassium 4.2 mmol/L (3.3-5.1); Sodium 139 mmol/L (135-145)
== END 2024-08-01 06:19 | disposition home or self-care (01) ==
LOC: HO.MMNH3L 06:18
PROVIDERS: Visit Provider Family Medicine
DX: I10 Essential (primary) hypertension (principal)
CPT/HCPCS: 36415; 80048; 85025

== ENCOUNTER 2024-08-29 06:22 | Outpatient (REF) | payer MEDICARE, SELFPAY ==
[2024-08-29 06:04] LABS: MANUAL DIFF FLAG NO
--- OUTSIDE RECORDS SUMMARY | 2024-08-29 06:32 | XMS_ITS | Data Portability ---
Author Organization [place] - [facility], Main Office Address [address] [facility], [address] [place] [address] Care Team Providers Care Microwave Remote Sensing Scientist Name Role Phone KAREME HAYNES 3RD FLOOR OTHER Assessment Encounter Date Assessment Date Assessment LastModified by Organization Details LastModified Time 07/07/2024 07/07/2024 Labs 06/27: Na 137- K 4.3-Bun 25- Cr 1.2-wbc 10.4-hgb 9.8-hct 31.9-plt 367- labs 07/05: Na 139-K 3.9-bun 23-cr 1.0wbc 9.2-hgb 9.7-hct 32.0-plt 320 Not available 07/07/2024 09:22:36 07/11/2024 07/11/2024 Labs 06/27: Na 137- K 4.3-Bun 25- Cr 1.2-wbc 10.4-hgb 9.8-hct 31.9-plt 367- labs 07/05: Na 139-K 3.9-bun 23-cr 1.0wbc 9.2-hgb 9.7-hct 32.0-plt 320 Not available 07/11/2024 14:24:09 Plan of Treatment Reminders Order Date Submit Date Provider Last Modified By Organization Details Last Modified Time Details Appointments None record ed. Lab None record ed. Referral None record ed. Procedures None record ed. Surgeries None record ed. Imaging None record ed. Medication Orders None record ed. Patient TargetsNo targets recorded. Patient InstructionsNo instructions recorded. Reason for Referral None Reported. Problems Name Problem SNOMED Code Status Onset Date Resolution Date Notes Provider Name and Address Organization Details Recorded Time Severe pain 66647134 Active 2021 back pain BRYANNA URBANO, MIKIE [address] [facility], [address], [place], [address], [facility] 13:15:21 Adult failure to thrive syndrome 121736926 Active 2021 BRYANNA URBANO NP [address], [address], [place], [address], [facility] 2 13:15:35 Fall Active 2021 BRYANNA URBANO NP [address], [address], [place], [address], [facility] 2 13:15:44 Gastroes ophageal reflux disease without esophagi tis 064356472 Active 2021 BRYANNA URBANO NP [address], [address], [place], [address], [facility] 2 13:16:01 Osteoart hritis 425354607 Active 2021 BRYANNA URBANO NP [address] [facility], [address], [place], [address], [facility] 2 13:16:10 Mixed anxiety and depressi ve disorder 408758741 Active 2021 BRYANNA URBANO NP [address] [facility], [address], [place], [address], [facility] 3 10:40:32 Hypothyr oidism 12863948 Active 2021 BRYANNA URBANO NP [address] [facility], [address], [place], [address], [facility] 2 13:16:28 Osteopor osis 84038728 Active 2021 BRYANNA URBANO NP [address], [address], [place], [address], [facility] 2 13:17:10 Atrial fibrilla tion 45143202 Active 2021 BRYANNA URBANO, MIKIE [address], [address], [place], [address], [facility] 2 14:21:30 Hyperlip idemia 69397871 Active 2021 BRYANNA URBANO, HEAT TREATING FURNACE TENDER [address] [facility], [address], [place], [address], [facility] 2 14:21:52 Spinal stenosis of lumbar region 10773137 Active 2021 Ana Damon MD [address] [facility], [address], [place], [address], [facility] 2 19:13:30 Edema 360670494 Active 2021 BRYANNA URBANO, HEAT TREATING FURNACE TENDER [address], [place], [address], [facility] 2 13:22:11 Hypokale doretha 22573622 Active 2021 Ana Damon MD [address] [facility], [address], [place], [address], [facility] 2 23:44:02 Pancreat itis 45359149 Active 2021 BRYANNA URBANO, HEAT TREATING FURNACE TENDER [address] [facility], [address], [place], [address], [facility] 2 14:58:02 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 605370320 Active 2021 Ana Damon MD [address], [place], [address], [facility] 2 14:42:49 Contusio n 152972360 Active 2021 right buttock BRYANNA YOLIE, HEAT TREATING FURNACE TENDER [address] [facility], [address], [place], [address], [facility] 3 12:37:52 COVID-19 605081765 Active 2021 BRYANNA YOLIE, HEAT TREATING FURNACE TENDER [address] [facility], [address], [place], [address], [facility] 2 10:44:44 Dislocat ion of shoulder joint 682425484 Active 2022 Margarette Awad NP [address] [facility], [address], [place], [address], [facility] 3 11:28:04 Chronic neck pain 17677552006 07 Active 2022 Ana Damon MD [address], [address], [place], [address], [facility] 3 21:36:27 Nausea 875086011 Active 2022 Ana Damon MD [address], [address], [place], [address], [facility] 3 21:36:31 Type 2 diabetes mellitus 52271542 Active 2022 Ana Damon MD [address], [address], [place], [address], [facility] 3 20:16:36 Contusio n of face 650171557 Active 2022 BRYANNA URBANO NP [address], [address], [place], [address], [facility] 3 12:37:45 Urinary tract infectio us disease 74753291 Active 2023 NELDA MANSFIELD [address], [address], [place], [address], [facility] 4 14:59:19 Dyspnea 482951095 Active 2023 NELDA MANSFIELD [address], [address], [place], [address], [facility] 4 22:03:33 Neuropat hy 393022265 Active 2023 NELDA MANSFIELD [address], [address], [place], [address], [facility] 4 22:17:58 Constipa tion 44316989 Active 2023 NELDA MANSFIELD [address], [address], [place], [address], [facility] 4 22:22:39 Chronic pain 40486612 Active 2023 Ana Damon MD [address], [address], [place], [address], [place] [facility] 4 10:49:48 Cellulit is 006204744 Active 2023 NELDA MANSFIELD [address] [facility], [address], [place], [address], [facility] 4 09:09:15 Manav contreras 66422134 Completed 202306/06/2024 on predniso ne 10 mg daily NELDA MANSFIELD [address] [place] [address], [address], [place], [address], [facility] 4 15:48:25 Venous insuffic iency of leg 688432557 Active 2023 NELDA MANSFIELD [address] [place] [address], [address], [place], [address], [facility] 4 02:16:11 Chronic heart failure 41998196 Active 2023 NELDA MANSFIELD [address] [place] [address], [address], [place], [address], [facility] 4 02:24:16 Problem Notes None recorded. Medical Equipment None Reported. Allergies Allergen ID Allergen Name Allergen Category Reaction Reaction Severity Criticality Documentation Date Start Date Code Code System Note Provider Name and Address Organization Details Recorded Time 55481 amitripty line medicatio n Not available Not available Not available 09/25/2021 704 RxNorm Not Available Not Available Not Available 58233 morphine medicatio n Not available Not available Not available 09/25/2021 7052 RxNorm Not Available Not Available Not Available 45538 oxycodone medicatio n Not available Not available Not available 09/25/2021 7804 RxNorm Not Available Not Available Not Available 73514 Demerol medicatio n Not available Not available Not available 09/25/2021 28393 1 RxNorm Not Available Not Available Not Available 89671 Phenergan medicatio n Not available Not available Not available 09/25/2021 30081 8 RxNorm Not Available Not Available Not Available 26145 lactose food,medi cation Not available Not available Not available 09/25/2021 6211 RxNorm Not Available Not Available Not Available Medications Name Sig Start Date Stop Date Status Note LastModified by Organization Details LastModified Time fentanyl 50 mcg/hr transdermal patch Apply 1 patch every 72 hours by transdermal route in the morning, for chronic pain. 2023 active Not Available Not Available Not Avai lable tramadol 50 mg tablet Take 0.5 tablets twice a day by oral route. 2023 active Not Available Not Available Not Avai lable Vitals Date Recorded Body height Provider Name an d Address Organization Details Last Updated DateTime 07/07/2024 162.56 cm NELDA MANSFIELD [address] [facility], [address], [place], [address], [facility] 07/07/2024 08:58:12 Date Recorded Body height Provider Name an d Address Organization Details Last Updated DateTime 07/11/2024 162.56 cm NELDA MANSFIELD [address] [place] [address], [address], [place], [address], [facility] 07/11/2024 14:23:34 Date Recorded Body height Heart rate Oxygen saturation Oxygen saturation in Arterial blood by Pulse oximetry Provider Name and Address Organization Details Last Updated DateTime 07/21/2024 162.56 cm 78 /min 95 % 95 % DEEPAK MANSFIELDP [address] [facility], [address], [place], [address] , [facility] 07/21/2024 15:42:40 Social History Question Answer Notes LastModified by Organizat ion Details LastModified Time Tobacco Smoking Status Former Smoker can't remember when she quit Ana Damon MD [address] [facility], [facility] [address], [place], [address], [facility] 09/26/2021 19:09:18 Do You Have An Advance Directive? Yes Information not available 09/26/2021 What Is Your Level Of Alcohol Consumption? None Information not available 09/25/2021 What Is Your Code Status? DNR/DNI Information not available 09/25/2021 Where Do You Live? [facility]. Was Living With Son, But He Is Not Home During The Day. Information not available 05/29/2023 Legal Guardian? No Informati on not available 09/26/2021 Do You Have A Medical Power Of Diesel Technician? Yes Invoked Information not available 09/26/2021 What Was The Date Of Your Most Recent Tobacco Screening? 09/26/2021 Information not available 09/26/2021 Do You Have An Out Of Hospital DNR? Yes Information not available 09/26/2021 What Is Your Relationship Status? Information not available 09/26/2021 Do You Use Any Illicit Or Recreational Drugs? No Information not available 09/25/2021 Has Tobacco Cessation Counseling Been Provided? No N/a As Pt No Longer Smokes Information not available 09/26/2021 Do You Or Have You Ever Used Any Other Forms Of Tobacco Or Nicotine? No Information not available 09/26/2021 Sex: Unknown Functional Status None recorded. Mental Status None recorded. Family History Nothing Reported Notes:n/c Medical History No medical history recorded. Gynecological HistoryNo gynecological history recorded. Obstetrics History GPAL:G 0 P 0 0 0 0 Immunizations Vaccine Type Date Status Note Provider Nam e and Address Organization Details Recorded Time Influenza, adjuvanted, quadrivalent, PF 05/21/2022 completed Dena maza, [facility] 08/17/2023 10:49:52 Influenza, adjuvanted, quadrivalent, PF 03/04/2023 completed Dena maza [facility] 08/17/2023 10:50:06 Past Encounters Encounter ID Performer Location Encounter Start Date Encounter Closed Date Diagnosis/Indication Diagnosis SNOMED-CT Code Diagnosis ICD10 Code Diagnosis Note [id number] MIKIE DUONG [address] [place] [place] [address] 09/25/2021 09:13:56 09/30/2021 13:45:49 Severe pain 24143355 R52 fentanyl patch 50 mcgdilaudi d 1 mg q4hr prnprednis one 10 mg dailyrepos ition prnhospice consult and admission Osteoporosis 40559647 M8 1.0 methotrexa te 2.5 len dronate 70 thursdaypred nisone 10 mg daily Osteoarthritis 448328415 M19.90 dilaudid 1 mg q4 hr prnfentany l 50 mcg patch Mixed anxi ety and depressive disorder 250575594 F41.8 wellbutrin xl 150 mg bid Hypothyroidism 93473704 E03.9 levothyrox ine 200 mcg daily Gastroesop hageal reflux disease without esophagitis 809319055 K21.9 omeprazole 40 mg daily Adult fail ure to thrive syndrome 035156972 R62.7 encourage po intake fall W19.XXXA PT OT eval and treatfall precaution sfrequent safety checks Atrial fibrillation 4943 6004 I48.91 eliquis 5 mg bidlasix 40 mg daily Hyperlipidemia 03181938 E78.5 atorvastat in 40 mg daily [id number] Ana Damon MD [facility] [address] [place] [address] 09/26/2021 15:54:36 09/30/2021 14:03:56 Osteoporosis 23018323 M81.0 Will d/c alendronat e Osteoarthritis 174705196 M15.0 Unclear what she is on MTX for, if it's OA or pulmonary fibrosis.C ontinue methotrexa te 2.5 mg weekly.Chelsi n control as above. Mixed anxi ety and depressive disorder 768915642 F41.8 Continue wellbutrin xl 150 mg BID.Monito r mood. Hypothyroidism 59320650 E03.8 With elevated TSH, but nl FT4. Will leave dosing as is for now, bayron. since pt is transition ing to hospice.Co ntinue levothyrox ine 200 mcg qd.No further labs. Gastroesop hageal reflux disease without esophagitis 972358921 K21.9 Continue omeprazole 40 mg qd.Monitor sxs/ Adult fail ure to thrive syndrome 548775272 R62.7 Continue oral supplement s as able. Fall W19.XXXA Unable to participat e in rehab.Cont inue fall precaution s.Monitor for safety. Atrial fibrillation 4943 6004 I48.0 Rate in good control on no rate controllin g meds.Leonora nue eliquis 5 mg BID for AC.Monitor HR and bleeding risk Hyperlipidemia 35483886 E78.49 Will d/c atorvastat inNo further labs Spinal roni nosis of lumbar region 80496830 M48.062 With continued distress, unclear how much is pain and how much is behavioral .Will start roxanol 5 mg q 4 hrs scheduled and q 1 hr prn. Hold for oversedati on.Continu e fentanyl patch 50 mcg q 72 hrs and dilaudid 1 mg q 4 hrs prnContinu e prednisone 10 mg qd.Hospice consult pending. [id number] BRYANNA URBANO NP [address] [address] 09/27/2021 10:49:34 09/30/2021 14:31:05 Mixed anxiety and depressive disorder 833108774 F41.8 wellbutrin xl 150 mg bid-pm dose is 50 mg a week decrease until donethen remeron can be startedris perdal 0.5 mg bidAIMs 0 Adult fail ure to thrive syndrome 356466514 R62.7 encourage po intakereme sonal 7.5 mg hs [id number] BRYANNA URBANO NP [address] [address] 09/30/2021 12:53:54 10/04/2021 13:57:38 Mixed anxiety and depressive disorder 600399704 F41.8 wellbutrin xl 150 mg bid-pm dose is 100 mg decrease for 7 days then discontinu ishan remeron can be startedris perdal 0.5 mg bid-decrea sed to 0.25 mg am, 0.5 mg hsAIMs 0 Adult fail ure to thrive syndrome 188451626 R62.7 encourage po intakereme sonal 7.5 mg hs when hs wellbutrin finished Spinal roni nosis of lumbar region 36811354 M48.062 fentanyl patch 50 mcg q72 daysdilaud id 1 mg q4hr prnprednis on 10 mg daily [id number] Ana Damon MD [address] [address] 10/01/2021 19:18:36 10/04/2021 14:59:14 Spinal stenosis of lumbar region 72803203 M48.062 Continue fentanyl patch 50 mcg q 72 hrs and dilaudid 1 mg q 4 hrs prnContinu e prednisone 10 mg qd.Reconsi jeff hospice consult if pt. not able to tolerate med changes as below. Mixed anxi ety and depressive disorder 497889408 F41.8 Continue Wellbutrin 150 mg qAM and PM dose 100 mg until 10/08 then d/c pm doseStart mirtazapin e 7.5 mg qhs on 10/08Contin ue risperdal 0.25 mg qam and 0.5 mg qhsMonitor effect. Adult fail ure to thrive syndrome 873828880 R62.7 encourage po intakeStar t remeron 7.5 mg hs when hs wellbutrin finished as above. [id number] BRYANNA URBANO NP [address] [address] 10/03/2021 10:04:53 10/09/2021 15:41:28 Adult failure to thrive syndrome 070230060 R62.7 encourage po intakereme sonal 7.5 mg hs when hs wellbutrin finished 10/08 Mixed anxi ety and depressive disorder 319338786 F41.8 wellbutrin xl 150 mg bid-pm dose is 100 mg decrease for 7 days then discontinu e 10/08then remeron can be startedris perdal 0.5 mg bid-decrea sed to 0.25 mg am, 0.5 mg hsAIMs 0 Severe pain 37873114 R52 fentanyl patch 50 mcgdilaudi d 1 mg q4hr prn-d/c due to lack of useprednis one 10 mg dailyrepos ition prnhospice consult and admissionr oxanol was d/c due to morphine allergy [id number] BRYANNA URBANO NP [address] [address] 10/09/2021 10:18:53 10/14/2021 14:25:24 Mixed anxiety and depressive disorder 049670310 F41.8 wellbutrin xl 150 mg bid-pm dose is 100 mg decrease for 7 days then discontinu e 10/08then remeron can be startedris perdal 0.5 mg hs-am dose d/cAIMs 0 Adult fail ure to thrive syndrome 143315607 R62.7 encourage po intakereme sonal 7.5 mg hs when hs wellbutrin finished 10/08 Severe pain 99900254 R52 fentanyl patch 50 mcgdilaudi d 1 mg q4hr prn-d/c due to lack of useprednis one 10 mg dailyrepos ition prnhospice consult and admissionr oxanol was d/c due to morphine allergy [id number] BRYANNA URBANO NP [address] [address] 10/11/2021 10:22:56 10/14/2021 15:05:22 Mixed anxiety and depressive disorder 998359286 F41.8 wellbutrin xl 150 mg bid-pm dose is 100 mg decrease for 7 days then discontinu e 10/08then remeron can be startedris perdal 0.5 mg hs-am dose d/cAIMs 0 Adult fail ure to thrive syndrome 903108608 R62.7 encourage po intakereme sonal 7.5 mg hs when hs wellbutrin finished 10/08 Severe pain 58471275 R52 fentanyl patch 50 mcgdilaudi d 1 mg q4hr prn-d/c due to lack of useprednis one 10 mg dailyrepos ition prnhospice consult and admissionr oxanol was d/c due to morphine allergy [id number] BRYANNA URBANO NP [address] [address] 10/14/2021 12:20:18 10/16/2021 14:26:14 Severe pain 23846131 R52 fentanyl patch 50 mcgprednis one 10 mg dailyrepos ition prnroxanol was d/c due to morphine allergy Mixed anxi ety and depressive disorder 590404979 F41.8 wellbutrin xl 150 mgremeron 7.5 mg dailyrispe rdal 0.5 mg hs-am dose d/cAIMs 0 Fall W19.XXXA PT OT eval and treatfall precaution sfrequent safety checks [id number] BRYANNA URBANO NP [address] [address] 10/16/2021 13:18:48 10/23/2021 10:49:11 Adult failure to thrive syndrome 471491782 R62.7 encourage po intakereme sonal 7.5 mg hs when hs wellbutrin finished 10/08 Mixed anxi ety and depressive disorder 330166459 F41.8 wellbutrin xl 150 mgremeron 7.5 mg dailyrispe rdal 0.5 mg hs-am dose d/cAIMs 0 Severe pain 46679066 R52 fentanyl patch 50 mcgprednis one 10 mg dailyrepos ition prnroxanol was d/c due to morphine allergy Edema 250537586 R60.9 lasix 40 mg daily will increase to bid for 7 days [id number] Su Frey [address] [address] 10/18/2021 11:22:25 10/23/2021 11:24:28 Adult failure to thrive syndrome 015672186 R62.7 Appetite improveden courage po intakereme sonal 7.5 mg QHSMonitor weights Mixed anxi ety and depressive disorder 441611313 F41.8 wellbutrin xl 150 mgremeron 7.5 mg dailyrispe rdal 0.5 mg hsMonitor moodPsych eval prn Severe pain 86348627 R52 fentanyl patch 50 mcgprednis one 10 mg dailyBack pain now well controlled Monitor Edema 978240171 R60.9 Lasix 40 mg BIDACE wraps BLEElevate legs as toleratedM onitor [id number] BRYANNA URBANO NP [address] [address] 10/21/2021 10:50:08 10/23/2021 11:52:29 Edema 090685072 R60.9 lasix 40 mg bidmetolaz one 2.5 mg tues, thursace wraps Severe pain 26175288 R52 fentanyl patch 50 mcgprednis one 10 mg dailyrepos ition prnroxanol was d/c due to morphine allergy [id number] BRYANNA URBANO NP [address] [address] 10/24/2021 10:43:36 10/29/2021 12:14:04 Edema 884222744 R60.9 lasix 40 mg bidmetolaz one 2.5 mg tues, thurs, add a dose sundayace wraps Adult fail ure to thrive syndrome 452620446 R62.7 encourage po intakereme sonal 7.5 mg hs Mixed anxi ety and depressive disorder 319600046 F41.8 wellbutrin xl 150 mgremeron 7.5 mg dailyrispe rdal 0.5 mg hs- decrease hs dose to 0.25 mgAIMs 0 [id number] BRYANNA URBANO NP [facility] [address] [place] [address] [place] [address] 10/30/2021 10:59:13 11/05/2021 10:01:44 Adult failure to thrive syndrome 034564775 R62.7 encourage po intakereme sonal 7.5 mg hs Mixed anxi ety and depressive disorder 135880405 F41.8 wellbutrin xl 150 mgremeron 7.5 mg dailyrispe rdal 0.25 mg- discontinu eAIMs 0 Severe pain 42931100 R52 fentanyl patch 50 mcgprednis one 10 mg dailyrepos ition prnroxanol was d/c due to morphine allergy [id number] Ana Damon MD [address] [place] [address] 11/19/2021 18:25:18 11/25/2021 15:04:26 Adult failure to thrive syndrome 410719053 R62.7 Doing much better. Wt. has been stable.Say s her appetite is good.Leonora nue mirtazapin e 7.5 mg qhs.Monito r wts. Mixed anxi ety and depressive disorder 841861352 F41.8 Mood good today.Cont inue wellbutrin XL 150 mg qd and mirtazapin e 7.5 mg qhsMonitor mood.Consu lt psych prn Severe pain 30237053 R52 Under good control on fentanyl patch 50 mcg q 3 days, prednisone 10 mg qd, and APAP prnRestart ing PT this week.Monit ro Edema 483494209 R60.0 Continue lasix 40 mg BID and metolazone 2.5 mg 2x/wk on & .Cont inue wilma wraps daily.Carmela tor Hypokalemia 29556394 E87 .6 With borderline low K+ for awhile. Has never been on K+ supplement .Will recheck next week and if still low will add KCL 10 meq qd.Monitor [id number] BRYANNA URBANO NP [facility] [address] [place] [address] [place] [address] 12/12/2021 10:09:42 12/17/2021 16:08:08 Adult failure to thrive syndrome 094186533 R62.7 Doing much better. Wt. has been stable.Say s her appetite is good.Leonora nue mirtazapin e 7.5 mg qhs.Monito r wts. Mixed anxi ety and depressive disorder 858524043 F41.8 Mood good today.well butrin XL 150 mg qd and mirtazapin e 7.5 mg qhsMonitor mood.Consu lt psych prn Severe pain 56973045 R52 Under good control on fentanyl patch 50 mcg q 3 days, prednisone 10 mg qd, and APAP prnRestart ing PT this week.Monit ro Edema 135983031 R60.0 lasix 40 mg BIDmetolaz one 2.5 mg 2x/wk on & .Cont inue wilma wraps daily.Carmela tor Hypokalemia 52750811 E87 .6 With borderline low K+ for awhile. Has never been on K+ supplement .Will recheck next week and if still low will add KCL 10 meq qd.Monitor Atrial fibrillation 4943 6004 I48.0 eliquis 5 mg bidlasix 40 mg bid daily Gastroesop hageal reflux disease without esophagitis 290485184 K21.9 omeprazole 40 mg daily Hyperlipidemia 39966136 E78.49 atorvastat in 40 mg daily Hypothyroidism 57050716 E03.8 levothyrox ine 200 mcg daily Osteoarthritis 180540655 M15.0 fentanyl 50 mcg patch q72 hr Osteoporosis 02067850 M8 1.0 methotrexa te 2.5 ayalen dronate 70 thursdaypred nisone 10 mg daily Spinal roni nosis of lumbar region 25436952 M48.062 fentanyl patch 50 mcg q72 hourspredn isone 10 mg daily Fall W19.XXXA PT OT eval and treatfall precaution sfrequent safety checks [id number] MIKIE DUONG [address] [place] [address] rd [place] [address] 01/03/2022 14:55:57 01/06/2022 20:46:48 Pancreatitis 94452235 K85.90 monitor for symptomsmo nitor labs Adult fail ure to thrive syndrome 867568890 R62.7 Doing much better. Wt. has been stable.Say s her appetite is good.gary zapine 7.5 mg qhs.Monito r wts. Mixed anxi ety and depressive disorder 285850523 F41.8 Mood good today.well butrin XL 150 mg bidmirtaza pine 7.5 mg qhsMonitor mood.Consu lt psych prn Severe pain 17744142 R52 Under good control on fentanyl patch 50 mcg q 3 days,predn isone 10 mg qd,APAP 650 mg q4hr prnPT OT eval and treat prnMonitor Edema 984301365 R60.0 lasix 40 mg BIDmetolaz one 2.5 mg 2x/wk on & , thursday.Con tinue wilma wraps daily.Carmela tor Hypokalemia 91710822 E87 .6 With borderline low K+ for awhile. Has never been on K+ supplement .Monitor Atrial fibrillation 4943 6004 I48.0 eliquis 5 mg bidlasix 40 mg bid dailymetol azone 2.5 mg , doan Gastroesop hageal reflux disease without esophagitis 628901514 K21.9 omeprazole 40 mg daily Hyperlipidemia 97484976 E78.49 atorvastat in 40 mg daily Hypothyroidism 55196019 E03.8 levothyrox ine 200 mcg daily Osteoarthritis 009652394 M15.0 fentanyl 50 mcg patch q72 hr Osteoporosis 62957948 M8 1.0 prednisone 10 mg daily Spinal roni nosis of lumbar region 51196529 M48.062 fentanyl patch 50 mcg q72 hourspredn isone 10 mg daily Fall W19.XXXA PT OT eval and treatfall precaution sfrequent safety checks [id number] MIKIE DUONG [address] [place] [address] 01/06/2022 10:28:02 01/09/2022 13:18:55 Edema 840305295 R60.0 lasix 40 mg BIDmetolaz one 2.5 mg 2x/wk on & thursday.Con tinue wilma wraps daily.Carmela tor Pancreatitis 81423086 K8 5.90 monitor for symptomsmo nitor labs [id number] MIKIE DUONG [place] [address] [place] [phone] 5 01/08/2022 12:46:02 01/10/2022 16:30:00 Edema 111030707 R60.0 lasix 40 mg BIDmetolaz one 2.5 mg 2x/wk on & , thursday.Con tinue wilma wraps daily-comp ression stockingsM onitor Pancreatitis 20237155 K8 5.90 monitor for symptomsmo nitor labs [id number] BRYANNA URBANO NP [address] [address] 01/10/2022 11:53:05 01/14/2022 12:50:34 Hypothyroidism 99721932 E03.8 levothyrox ine 200 mcg daily-incr ease to 225 mcgrecheck tsh-free T4 in 6 weeks [id number] MD KAREEM Whitaker [place] [address] [place] [phone] 5 02/11/2022 16:58:31 02/19/2022 16:14:54 Hypothyroidism 76003620 E03.8 Levothyrox ine was increased from 200 mcg qd to 225 mcg qd on 01/13 due to TSH of 12.24. Free T4 was WNL.Due for recheck of TSH and FT4 in a week or two. Adult fail ure to thrive syndrome [id number] R62.7 Doesn't really have this dx anymore. Her wt. has been stable and her appetite is good.Leonora nue mirtazapin e 7.5 mg qhs.Monito r wts. Mixed anxi ety and depressive disorder 018964845 F41.8 Mood good today.Cont inue wellbutrin XL 150 mg qd and mirtazapin e 7.5 mg qhsMonitor mood.Psych following, may try a GDR. Edema 860637230 R60.0 Continue lasix 40 mg BID and metolazone 2.5 mg 2x/wk on & .Cont inue WILMA wraps qd.Monitor Chronic pancreatitis 235 931470 K86.1 Under good control on fentanyl patch 50 mcg q 3 days, prednisone 10 mg qd, and APAP 650 mg q 6 hrs prnMonitor . Degenerati ve joint disease involving multiple joints 638708480 M15.0 Pain control as above.Also diclofenac gel to shoulders BID and hands prn.Will add lidocaine patches to shoulders, low back and elbows as needed.PT/ OT as needed.Mon itor [id number] BRYANNA VELAMIKIE ALICEA KAREEM HAYNES [address] [place] [phone] 5 02/25/2022 11:22:33 03/10/2022 20:26:15 Hypothyroidism 04000788 E03.8 levothyrox ine 225 mcgrecheck tsh-free T4 in 6 weeks Spinal roni nosis of lumbar region 23540558 M48.062 fentanyl patch 50 mcg q72 hourspredn isone 10 mg daily [id number] BRYANNA MIKIE URBANO KAREEM [address] [address] 5 03/28/2022 11:18:57 04/03/2022 10:05:40 Degenerative joint disease involving multiple joints 515306312 M15.0 tramadol 25 mg q6hr prndiclofe nac gel to shoulders BID and hands prn.Will add lidocaine patches to shoulders, low back and elbows as needed.PT/ OT as needed.Mon itor Severe pain 78078340 R52 Under good control on fentanyl patch 50 mcg q 3 days,predn isone 10 mg qd,APAP 650 mg q4hr prnPT OT eval and treat prnMonitor [id number] BRYANNA VELANIXON MIKIE [address] [address] 5 04/04/2022 10:53:36 04/08/2022 15:25:03 Mixed anxiety and depressive disorder 541395425 F41.8 Mood good today.well butrin XL 150 mg bidmirtaza pine 7.5 mg qhsMonitor mood.Consu lt psych prn Severe pain 39418845 R52 fentanyl patch 50 mcg q 3 days,predn isone 10 mg qd,APAP 1000 mg tidtramado l 25 mg bid prnPT OT eval and treat prnMonitor Edema 116333548 R60.0 lasix 40 mg BIDmetolaz one 2.5 mg 2x/wk on & , thursday.Con tinue wilma wraps daily.Carmela tor Hypokalemia 35370765 E87 .6 With borderline low K+ for awhile. Has never been on K+ supplement .Monitor Atrial fibrillation 4943 6004 I48.0 eliquis 5 mg bidlasix 40 mg bid dailymetol azone 2.5 mg , , doan Gastroesop hageal reflux disease without esophagitis 261874168 K21.9 omeprazole 40 mg daily Hyperlipidemia 32214295 E78.49 monitor Hypothyroidism 54001612 E03.8 levothyrox ine 225 mcg daily Osteoarthritis 852519286 M15.0 fentanyl 50 mcg patch q72 hrAPAP 1000 mg tidtramado l 25 mg bid prnglucosa mine 500 mg tid Osteoporosis 45006778 M8 1.0 prednisone 10 mg daily Spinal roni nosis of lumbar region 26700217 M48.062 fentanyl patch 50 mcg q72 hourspredn isone 10 mg daily Fall W19.XXXA PT OT eval and treatfall precaution sfrequent safety checks Adult fail ure to thrive syndrome 046279720 R62.7 Doing much better. Wt. has been stable.Say s her appetite is good.gary zapine 7.5 mg qhs.Monito r wts. Degenerati ve joint disease involving multiple joints 238647875 M15.0 tramadol 25 mg bid prndiclofe nac gel to shoulders BID and hands prn.Will add lidocaine patches to shoulders, low back and elbowsgluc osamine 500 mg bidPT/OT as needed.Mon itor [id number] MIKIE DUONG [address] [address] 5 04/10/2022 12:09:08 04/22/2022 16:17:48 Degenerative joint disease involving multiple joints 247940871 M15.0 tramadol 25 mg bid prndiclofe nac gel to shoulders BID and hands prn.Will add lidocaine patches to shoulders, low back and elbowsgluc osamine 500 mg bidtizanad ine 2 mg bidPT/OT as needed.Mon itor Severe pain 89310262 R52 fentanyl patch 50 mcg q 3 days,predn isone 10 mg qd,APAP 1000 mg tiddiclofe nac gel and lido patchestiz anidine 2 mg bidtramado l 25 mg bid prnPT OT eval and treat prnMonitor [id number] MIKIE DUONG [place] [address] [place], [place] [address], [place] [address] 05/07/2022 10:29:27 05/09/2022 15:20:45 Pancreatitis 18257687 K85.90 monitor for symptomsmo nitor labs Mixed anxi ety and depressive disorder 386682431 F41.8 Mood good today.well butrin XL 150 mg bidmirtaza pine 7.5 mg qhsMonitor mood.Consu lt psych prn Severe pain 46449496 R52 fentanyl patch 50 mcg q 3 days,predn isone 10 mg qd,APAP 1000 mg tidtramado l 25 mg bid prnPT OT eval and treat prnMonitor Edema 319782976 R60.0 lasix 40 mg BIDmetolaz one 2.5 mg 2x/wk on & , thursday.Con tinue wilma wraps daily.Carmela tor Hypokalemia 40782167 E87 .6 With borderline low K+ for awhile. Has never been on K+ supplement .Monitor Atrial fibrillation 4943 6004 I48.0 eliquis 5 mg bid-on hold due to buttock bruiselasi x 40 mg bid dailymetol azone 2.5 mg , doan Gastroesop hageal reflux disease without esophagitis 617169747 K21.9 omeprazole 40 mg daily Hyperlipidemia 21176293 E78.49 monitor Hypothyroidism 59271219 E03.8 levothyrox ine 225 mcg daily Osteoarthritis 519422678 M15.0 fentanyl 50 mcg patch q72 hrAPAP 1000 mg tidtramado l 25 mg bid prnglucosa mine 500 mg tid Osteoporosis 19602945 M8 1.0 prednisone 10 mg daily Spinal roni nosis of lumbar region 74660266 M48.062 fentanyl patch 50 mcg q72 hourspredn isone 10 mg daily Fall W19.XXXA PT OT eval and treatfall precaution sfrequent safety checks Adult fail ure to thrive syndrome 146495392 R62.7 Doing much better. Wt. has been stable.Say s her appetite is good.gary zapine 7.5 mg qhs.Monito r wts. Degenerati ve joint disease involving multiple joints 184716973 M15.0 tramadol 25 mg bid prndiclofe nac gel to shoulders BID and hands prn.Will add lidocaine patches to shoulders, low back and elbowsgluc osamine 500 mg bidPT/OT as needed.Mon itor Contusion 814246337 T14. 8XXA monitor bruising for extension or lesseningh old eliquis [id number] Samina Wilburn MD KAREEM [place] [address] [place] [address] [place] [address] 05/30/2022 07:35:26 06/04/2022 16:14:23 Chronic pain 63158580 G89.29 diclofenac gel 1% to shoulders bid, to both hands and spine prnfentany l patch 50 mcg q72 hsalonpas patch to right shoulder dailyAPAP 1000 mg tidtramado l 25 mg bidtizanid ine 2 mg bidprednis one 10 mg dailyPT/OT /PM&R prnwill monitor Mixed anxi ety and depressive disorder 924795700 F41.8 bupropion SR 150 mg dailymirta zapine 7.5 mg at hswill monitor Hypothyroidism 29853982 E03.8 levothyrox ine 225 mcg dailywill monitor Atrial fibrillation 4943 6004 I48.0 consider restart ACheld due to hematoma Type 2 russel betes mellitus 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.9 insulin aspart per sliding scalewill monitor Edema 585847026 R60.0 furosemide 40 mg dailymetol azone 2.5 mg daily on T, Th, Sawill monitor Gastroesop hageal reflux disease without esophagitis 993934123 K21.9 omeprazole 40 mg bidwill monitor Recurrent pancreatitis 264723829 K86.1 fu GI prnlow fat dietwill monitor [id number] MIKIE DUONG [address] [place] [address] [place] [address] 5 07/21/2022 10:43:42 08/01/2022 13:30:09 COVID-19 403260802 U07.1 07/20 covid positiveen courage po food and fluidscons ider ivf for anorexiaco nsider paxlovid or decadron for symptomsse nd to ED for decompensa tion [id number] MIKIE DUONG [place] [address] [place] [phone] 5 07/23/2022 11:28:07 08/01/2022 14:08:08 COVID-19 883322607 U07.1 07/20 covid positiveen courage po food and fluidscons ider ivf for anorexiaco nsider paxlovid or decadron for symptomsse nd to ED for decompensa tion Chronic pain 06152596 G8 9.29 diclofenac gel 1% to shoulders bid, to both hands and spine prnfentany l patch 50 mcg q72 hsalonpas patch to right shoulder dailyAPAP 1000 mg tidtramado l 25 mg bidtizanid ine 2 mg bidprednis one 10 mg dailyPT/OT /PM&R prnwill monitor Mixed anxi ety and depressive disorder 470354970 F41.8 bupropion SR 150 mg dailymirta zapine 7.5 mg at hswill monitor Hypothyroidism 34865856 E03.8 levothyrox ine 225 mcg dailywill monitor Atrial fibrillation 4943 6004 I48.0 eliquis 2.5 mg bidmonitor for any hematomas Type 2 russel betes mellitus 47423329 E11.9 insulin aspart per sliding scalewill monitor Edema 930919516 R60.0 furosemide 40 mg dailymetol azone 2.5 mg daily on T, Th, Sawill monitor Gastroesop hageal reflux disease without esophagitis 687582555 K21.9 omeprazole 40 mg bidwill monitor Recurrent pancreatitis 998667361 K86.1 fu GI prnlow fat dietwill monitor [id number] MIKIE DUONG [place] [address] [place] [phone] 5 07/25/2022 10:22:57 08/01/2022 15:15:29 COVID-19 894806147 U07.1 07/20 covid positiveen courage po food and fluidscons ider ivf for anorexiaco nsider paxlovid or decadron for symptomsse nd to ED for decompensa tion [id number] BRYANNA URBANO NP [address] [phone] 5 07/30/2022 11:27:21 08/01/2022 15:57:11 COVID-19 894207507 U07.1 07/20 covid positive-a symptomati c, recovered by dateencour age po food and fluidscons ider ivf for anorexiaco nsider paxlovid or decadron for symptomsse nd to ED for decompensa tion [id number] BRYANNA URBANO NP KAREEM HAYNES [address] [place] [phone] 5 07/31/2022 12:15:38 08/05/2022 18:21:58 COVID-19 138160476 U07.1 07/20 covid positive-a symptomati c, recovered by dateencour age po food and fluidscons ider ivf for anorexiaco nsider paxlovid or decadron for symptomsse nd to ED for decompensa tionCXR ordered for 07/31 Pancreatitis 73417899 K8 5.90 monitor for symptomsmo nitor labs [id number] BRYANNA URBANO NP KAREEM [place] [address] [place] [phone] 5 08/01/2022 11:59:17 08/06/2022 08:14:07 COVID-19 277136695 U07.1 07/20 covid positive-a symptomati c, recovered by dateencour age po food and fluidscons ider ivf for anorexiaco nsider paxlovid or decadron for symptomsse nd to ED for decompensa tionCXR ordered for 07/31-negati ve for chf or pna [id number] Margarette Awad NP [address] [address] 08/09/2022 10:30:12 08/13/2022 13:00:41 COVID-19 231156810 U07.1 resolved- no new treatment in hospital documentof f isolation precaution scovid rapid negative in facility on 08/09/22 per nursingmon itor for sequelae note: 07/20 covid positive-a symptomati c, recovered by dateencour age po food and fluidscons ider ivf for anorexiaco nsider paxlovid or decadron for symptomsse nd to ED for decompensa tionCXR ordered for 07/31-negati ve for chf or pna Pancreatitis 64029231 K8 5.90 was treated with ivf, medication s, and pain adjuncts- now improvedmo nitor for symptomsav oid fatty foods on low fat dietmonito r labs Chronic pain 64350721 G8 9.29 contdiclof enac gel 1% to shoulders bid, to both hands and spine prnfentany l patch 50 mcg q72 hsalonpas patch to right shoulder dailyAPAP 1000 mg tidtramado l 25 mg bidtizanid ine 2 mg bidprednis one 10 mg dailyPT/OT for weakness and painwill monitor Recurrent pancreatitis 683582257 K86.1 fu GI prnlow fat dietwill monitor Dislocatio n of shoulder joint 686224374 S43.004A pt has right shoulder dislocatio ncontinue pain meds as belowsling and swath as toleratedp assive romPT/OTfu with Dr Velasquez outptmonit or for cms, pulses, disclorati on [id number] MIKIE DUONG [address] [address] 5 08/11/2022 10:07:53 08/13/2022 13:35:33 Pancreatitis 60989633 K85.90 monitor for symptomsmo nitor labswas treated with ivf, medication s, and pain adjuncts- now improvedmo nitor for symptomsav oid fatty foods on low fat diet Dislocatio n of shoulder joint 189179286 S43.004A pt has chronic right shoulder dislocatio ncontinue pain medssling and swath as toleratedp assive romPT/OTfu with Dr Velasquez outptmonit or for cms, pulses, disclorati on [id number] BRYANNA URBANO NP [address] [address] 08/25/2022 11:17:28 08/27/2022 14:05:17 Pancreatitis 91899049 K85.90 monitor for symptomsmo nitor labswas treated with ivf, medication s, and pain adjuncts- now improvedmo xifloxin 400 mg daily x4 daysmonito r for symptoms avoid fatty foods on low fat diet Dislocatio n of shoulder joint 843383168 S43.004A pt has chronic subluxatio n right shoulder dislocatio ncontinue pain meds as belowsling and swath as toleratedp assive romPT/OTfu with Dr Velasquez outptmonit or for cms, pulses, disclorati on Chronic pain 65469951 G8 9.29 contdiclof enac gel 1% to shoulders bid, to both hands and spine prnfentany l patch 50 mcg q72 hsalonpas patch to right shoulder dailyAPAP 1000 mg tidtramado l 25 mg bidtizanid ine 2 mg bidprednis one 10 mg dailyPT/OT for weakness and painwill monitor COVID-19 698770708 U07.1 resolved- no new treatment in hospital documentof f isolation precaution scovid rapid negative in facility on 08/09/22 per nursingmon itor for sequelae note: 07/20 covid positive-a symptomati c, recovered by dateencour age po food and fluidscons ider ivf for anorexiaco nsider paxlovid or decadron for symptomsse nd to ED for decompensa tionCXR ordered for 07/31-negati ve for chf or pna Recurrent pancreatitis 568213327 K86.1 f/u GI prnlow fat dietwill monitor [id number] MIKIE DUONG [address] [place] [phone] 5 09/04/2022 10:39:19 09/08/2022 15:11:55 Dislocation of shoulder joint 261526199 S43.004A pt has chronic subluxatio n right shoulder dislocatio ncontinue pain meds as belowsling and swath as tolerated for comfort prnPT/Edilson/ u with Dr Velasquez outptmonit or for cms, pulses, disclorati on Mixed anxi ety and depressive disorder 372214250 F41.8 bupropion SR 150 mg dailymirta zapine 7.5 mg at hswill monitor [id number] MD KAREEM Lloyd [address] [place] [phone] 5 10/01/2022 10:06:00 10/03/2022 11:00:52 Atrial fibrillation 34545433 I48.0 apixaban 2.5 mg bidwill monitor Recurrent pancreatitis 151847030 K86.1 fu GIlow fat dietwill monitor Gastroesop hageal reflux disease without esophagitis 841995010 K21.9 omeprazole 40 mg bidwill monitor Type 2 russel betes mellitus 34921659 E11.9 insulin aspart per sliding scalewill monitor Chronic pain 23467614 G8 9.29 diclofenac gel 1% to shoulders bid, to both hands and spine prnfentany l patch 50 mcg q72 hsalonpas patch to right shoulder dailyAPAP 1000 mg tidtramado l 25 mg bidtizanid ine 2 mg bidprednis one 10 mg dailyPT/OT /PM&R prnwill monitor Peripheral edema 9579937 00 R60.0 metolazone 2.5 mg Tu, Th, Sufurosemi de 40 mg bidwill monitor Hypothyroidism 55686434 E03.8 levothyrox ine 225 mcg dailywill monitor Mixed anxi ety and depressive disorder 432114540 F41.8 bupropion SR 150 mg dailymirta zapine 7.5 mg at hstizanidi ne 2 mg bidwill monitor Essential hypertension 02550528 I10 metolazone 2.5 mg daily on , , Safurosemi de 40 mg bidwill monitor [id number] MIKIE DUONG [address] [place] [address], [place] [address] 10/15/2022 14:06:21 10/20/2022 14:25:22 Atrial fibrillation 05304133 I48.0 apixaban 2.5 mg bidwill monitor Recurrent pancreatitis 972572076 K86.1 fu GIlow fat dietwill monitor Gastroesop hageal reflux disease without esophagitis 366685506 K21.9 omeprazole 40 mg bidwill monitor Type 2 russel betes mellitus 06845083 E11.9 insulin aspart per sliding scalewill monitor Chronic pain 57437827 G8 9.29 diclofenac gel 1% to shoulders bid, to both hands and spine prnfentany l patch 50 mcg q72 hsalonpas patch to right shoulder dailyAPAP 1000 mg tidtramado l 25 mg bidtizanid ine 2 mg bidprednis one 10 mg dailyPT/OT /PM&R prnwill monitor Peripheral edema 2877694 00 R60.0 metolazone 2.5 mg Tu, Th, Sufurosemi de 40 mg bidwill monitor Hypothyroidism 72595771 E03.8 levothyrox ine 225 mcg dailywill monitor Mixed anxi ety and depressive disorder 100382696 F41.8 bupropion SR 150 mg dailymirta zapine 7.5 mg at hstizanidi ne 2 mg bidwill monitor Essential hypertension 39218012 I10 metolazone 2.5 mg daily on , , Safurosemi de 40 mg bidwill monitor [id number] BRYANNA URBANO NP [address] [address] 11/28/2022 13:21:24 12/03/2022 17:20:32 Atrial fibrillation 46806700 I48.0 apixaban 2.5 mg bidwill monitor Recurrent pancreatitis 905561815 K86.1 f/u GIlow fat dietwill monitor Gastroesop hageal reflux disease without esophagitis 773484727 K21.9 omeprazole 40 mg bidwill monitor Type 2 russel betes mellitus 43939833 E11.9 insulin aspart per sliding scalewill monitor Chronic pain 41687387 G8 9.29 diclofenac gel 1% to shoulders bid, to both hands and spine prnfentany l patch 50 mcg q72 hsalonpas patch to right shoulder dailyAPAP 1000 mg tidtramado l 25 mg bidtizanid ine 2 mg bidprednis one 10 mg dailyPT/OT /PM&R prnwill monitor Peripheral edema 7885356 00 R60.0 metolazone 2.5 mg , , Sufurosemi de 40 mg bidwill monitor Hypothyroidism 39144351 E03.8 levothyrox ine 225 mcg dailywill monitor Mixed anxi ety and depressive disorder 669181241 F41.8 bupropion SR 150 mg dailymirta zapine 7.5 mg at hstizanidi ne 2 mg bidwill monitor Essential hypertension 15889664 I10 metolazone 2.5 mg daily on , , Safurosemi de 40 mg bidwill monitor [id number] BRYANNA URBANO NP [address] [address] 01/14/2023 14:00:23 01/16/2023 15:25:27 Mixed anxiety and depressive disorder 824095589 F41.8 bupropion SR 150 mg dailymirta zapine 7.5 mg at hstizanidi ne 2 mg bidwill monitor Severe pain 32138706 R52 fentanyl patch 50 mcg q 3 days,predn isone 10 mg qd,APAP 1000 mg tidtramado l 25 mg bid prnPT OT eval and treat prnMonitor Fall W19.XXXA PT OT eval and treatfall precaution sfrequent safety checks [id number] Samina Wilburn MD [facility] [place] [address] [place] [phone] 5 02/11/2023 10:06:26 02/13/2023 16:03:58 Mixed anxiety and depressive disorder 449204362 F41.8 bupropion SR 150 mg dailymirta zapine 7.5 mg at hswill monitor Atrial fibrillation 4943 6004 I48.0 apixaban 2.5 mg bidwill monitor Type 2 russel betes mellitus 48935324 E11.9 insulin aspart per sliding scalewill monitor Chronic pain 84522546 G8 9.29 diclofenac gel 1% to shoulders bid, to both hands and spine prnfentany l patch 50 mcg q72 hsalonpas patch to right shoulder dailyAPAP 1000 mg tidtramado l 25 mg bidtizanid ine 2 mg bidprednis one 10 mg dailyPT/OT /PM&R prnwill monitor Gastroesop hageal reflux disease without esophagitis 922346299 K21.9 omeprazole 40 mg bidwill monitor Hypothyroidism 40439951 E03.8 levothyrox ine 225 mcg dailywill monitor Edema 486260952 R60.0 furosemide 40 mg dailymetol azone 2.5 mg daily on , , Sawill monitor [id number] MD KAREEM Whitaker [address] [place] [phone] 5 03/20/2023 20:34:03 03/23/2023 14:49:16 Ecchymosis present 052898651 S80.02XA Probably bumped it and doesn't remember, no pain, so no tx needed.Mon itor for resolution and monitor for new ecchymoses . Nausea 930330871 R11.0 Mild, periodic and chronic.Wi ll start Zofran 4 mg q 6 hrs prnMonitor sxs. Chronic neck pain 725038 9188 107 M54.2 Already on multiple pain meds.Will start lidocaine patch to neck prn, pt. says it only hurts sometimes, so doesn't want it scheduled. Continue fentanyl patch 50 mcg q 72 hrs, APAP 1000 mg TID,tramad ol 25 mg BID,tizani dine 2 mg BID andprednis one 10 mg qd.Monitor sxs. [id number] MIKIE DUONG [address] [place] [phone] 5 04/03/2023 16:33:21 04/10/2023 09:59:49 Mixed anxiety and depressive disorder 023054513 F41.8 bupropion SR 150 mg dailymirta zapine 7.5 mg at hswill monitor Atrial fibrillation 4943 6004 I48.0 apixaban 2.5 mg bidwill monitor Type 2 russel betes mellitus 73826746 E11.9 insulin aspart per sliding scalewill monitor Chronic pain 21110125 G8 9.29 fentanyl patch 50 mcg q72 hsalonpas patch to right shoulder dailyAPAP 1000 mg tidtramado l 25 mg bidtizanid ine 2 mg bidprednis one 10 mg dailyPT/OT /PM&R prnwill monitor Gastroesop hageal reflux disease without esophagitis 369251143 K21.9 omeprazole 40 mg bidwill monitor Hypothyroidism 86596959 E03.8 levothyrox ine 225 mcg dailywill monitor Edema 084704134 R60.0 furosemide 40 mg dailymetol azone 2.5 mg daily on T, Th, Sawill monitor [id number] MD KAREEM Whitaker [address] [place] [phone] 5 05/29/2023 18:52:13 06/12/2023 13:46:31 Mixed anxiety and depressive disorder 124615516 F41.8 Mood good tonight.Co ntinue bupropion SR 150 mg qd and mirtazapin e 7.5 mg qhsMonitor mood.Psych follows Atrial fibrillation 4943 6004 I48.0 Rate in good control on no rate controllin g meds.Leonora nue eliquis 2.5 mg BID for AC.Monitor HR and bleeding risk. Type 2 russel betes mellitus 13106626 E11.9 Last HgA1C 7.6 in 03/2022.Sug ars in adequate control on diet control with occ. SSI.Monito r fingerstic ks TID, due for recheck of HgA1C, forgot to order. Chronic pain 93851964 G8 9.29 Will add diclofenac gel for hands BID.Contin ue fentanyl patch 50 mcg q 72 hrs, salonpas patch to right shoulder qd, APAP 1000 mg TID, tramadol 25 mg BID, tizanidine 2 mg BID, and prednisone 10 mg qd.Continu e rehab as able.Monit or sxs. Gastroesop hageal reflux disease without esophagitis 707977837 K21.9 No current sxs.Contin ue omeprazole 40 mg BID.Monito r sxs Hypothyroidism 61669921 E03.8 TSH WNL.Contin ue levothyrox ine 225 mcg qdMonitor TSH yearly. Edema 700220153 R60.0 At baseline.C ontinue furosemide 40 mg qd and metolazone 2.5 mg qd on T, Th, SaMonitor sxs. [id number] BRYANNA URBANO NP [address] [address] 06/29/2023 12:07:31 07/07/2023 18:16:09 Fall 5698720 W19.XXXA PT OT eval and treatfall precaution sfrequent safety checks Contusion of face 596705 004 S00.83XA monitor neurosmoni tor for any signs of infectionm onitor for resolution of the bruising [id number] BRYANNA URBANO NP [address] [address] 5 07/01/2023 12:23:08 07/07/2023 19:15:00 Contusion of face 951075236 S00.83XA monitor neurosmoni tor for any signs of infectionm onitor for resolution of the bruising Edema 193769931 R60.0 furosemide 40 mg dailymetol azone 2.5 mg daily on T, Th, Sawill monitor [id number] BRYANNA URBANO NP [address] [address] 5 07/24/2023 12:53:42 08/04/2023 13:25:11 Contusion of face 630329898 S00.83XA resolvedmo nitor neurosmoni tor for any signs of infectionm onitor for resolution of the bruising Edema 154727980 R60.0 furosemide 40 mg dailymetol azone 2.5 mg daily on , , Sawill monitor Fall W19.XXXA PT OT eval and treatfall precaution sfrequent safety checks Mixed anxi ety and depressive disorder 790798487 F41.8 bupropion SR 150 mg dailymirta zapine 7.5 mg at hswill monitor Atrial fibrillation 4943 6004 I48.0 apixaban 2.5 mg bidwill monitor Type 2 russel betes mellitus 07473539 E11.9 insulin aspart per sliding scalewill monitor Chronic pain 61687342 G8 9.29 fentanyl patch 50 mcg q72 hsalonpas patch to right shoulder dailyAPAP 1000 mg tidtramado l 25 mg bidtizanid ine 2 mg bidprednis one 10 mg dailyPT/OT /PM&R prnwill monitor Gastroesop hageal reflux disease without esophagitis 365598173 K21.9 omeprazole 40 mg bidwill monitor Hypothyroidism 34471372 E03.8 levothyrox ine 225 mcg dailywill monitor [id number] NELDA MANSFIELD [address] [place] [phone] 5 09/03/2023 09:01:19 09/08/2023 15:59:59 Dry skin dermatitis 885211818 L85.3 see hpireports intermitte nt itchiness at timesfluid s encouraged Apply moisturize r to skin BIDhydorco rtisone cream TID prn 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 not appreciate d on examwarm salt water rinses QID prngood oral hygiene encourageb arcos teeth after mealschlor hexidine mouth wash qd and HS Toothache 60908389 K08.8 9 [id number] MD KAREEM Lloyd [address] [place] [phone] 5 09/23/2023 08:31:39 09/29/2023 10:26:59 Mixed anxiety and depressive disorder 153623894 F41.8 bupropion SR 150 mg dailymirta zapine 7.5 mg at hswill monitor Chronic pain 72317787 G8 9.29 diclofenac gel 1% to shoulders daily in eveningfen tanyl patch 50 mcg q72 hLidocaine patch to right shoulder and neck dailyAPAP 1000 mg tidtramado l 25 mg bidtizanid ine 2 mg bidprednis one 10 mg dailyPT/OT /PM&R prnwill monitor Atrial fibrillation 4943 6004 I48.0 apixaban 2.5 mg bidwill monitor Type 2 russel betes mellitus 38121339 E11.9 insulin aspart per sliding scalewill monitor Hypothyroidism 23672736 E03.8 levothyrox ine 225 mcg dailywill monitor Gastroesop hageal reflux disease without esophagitis 815400516 K21.9 omeprazole 40 mg bidwill monitor Edema 825274391 R60.0 furosemide 40 mg dailymetol azone 2.5 mg daily on T, Th, Sawill monitor Chronic dermatitis 56012 007 L20.89 d/c compressio n stockingst riamcinolo ne cream bidelevate d legswill monitor [id number] NELDA MANSFIELD [place] [address] [place] [address] 09/24/2023 08:15:25 10/01/2023 11:35:02 Fall [id number] W19.XXXA see hpiPT/OT eval and tx per facility protocolmi nimize fall risknursin g to educate pt on making sure wheelchair is in lock position and front wheels are facing forward before getting up out of chair. Contusion 845501597 T14. 8XXA Patient hit her right almanza against bed frame when she fell forwardnot ed with mild tenderness on eliquismon itor right almanza bruise for healing [id number] NELDA MANSFIELD [address] [address] 10/13/2023 10:07:38 10/15/2023 15:15:36 Neuropathy 328708126 G62.9 bilateral lower extremity calf with tingling pain and tenderness she is not experience any pain relief with current pain medication spatient agrees to try gabapentin times one dose 100mg she will update nursing if she experience relief. Fatigue 95130635 R53.83 appears tirediron studies, tsh, t4, bmp and cbc, vit D and Vit B levels orderedwil l r/o UTI as well. Type 2 russel betes mellitus 98489685 E11.9 currently on lispro SSC will adjust coveragere cently added lantus 10 units10/12 increased lantus to 15 units Hypothyroidism 03619846 E03.8 levothyrox ine 225 mcg dailyord TSH, T4 for 10/13 [id number] NELDA MANSFIELD [address] [address] 10/19/2023 13:21:25 10/22/2023 12:31:39 Vitamin D deficiency 52888208 E55.9 VIt D level 22start cholecacif telly 1000 unit dailyreche ck Vitamin D level in 3-4 months Neuropathy 936532570 G62 .9 today she tells me that she has a postive effect with gabapentin and would like to continue, she has not had any pain.will scheduled gabapentin 100 mg BID Q12 Type 2 russel betes mellitus 89361709 E11.9 currently on lispro SSC will adjust coveragere cently added lantus 10 units10/12 increased lantus to 15 units10/18: FS have improved Hypothyroidism 16212299 E03.8 levothyrox ine 225 mcg dailyord TSH, T4 for 10/13 Pending Dry skin dermatitis 2600 42621 L85.3 posterior calf noted with red patchy areas that are dry and flakyrefus ed rx cream recommende thelma lee and has been using -goldbond creamuses her own with good effect per patient.wi monitor. [id number] NELDA MANSFIELD [address] [address] 10/30/2023 21:18:42 11/02/2023 15:19:50 Type 2 diabetes mellitus 52058499 E11.9 continue lispro SSCcontinu e lantus 15 unitsmonit or FS TID Hypothyroidism 52176447 E03.8 levothyrox ine decreased to 175 mcgTSH 0.1 T4 normal rangerepea t labs in 6 weeks Abdominal pain 00698749 R10.9 see hpicontinu e zofran prn for nauseaplan robin upcoming EGD. [id number] NELDA MANSFIELD [address] [address] 11/04/2023 10:45:41 11/16/2023 16:04:21 Type 2 diabetes mellitus 55547140 E11.9 continue lispro SSCcontinu e lantus 15 unitsmonit or FS TID Hypothyroidism 62354839 E03.8 levothyrox ine decreased to 175 mcgTSH 0.1 T4 normal rangerepea t labs in 6 weeks Abdominal pain 39600594 R10.9 see hpicontinu e zofran prn for nauseaEGD unremarkab le Urinary tr act infectious disease 26277534 N39.0 10/21: postive UAstart levofloxac in 250 mg for 5 daysstart probiotic 1 tab bid for 10 daysincrea se oral hydration. [id number] NELDA MANSFIELD [place] [address] [place] [address] [place] [address] 11/19/2023 10:42:12 11/27/2023 15:22:30 Type 2 diabetes mellitus 45721456 E11.9 continue lispro SSCcontinu e lantus 15 unitsmonit or FS TID Hypothyroidism 04758112 E03.8 levothyrox ine decreased to 175 mcgTSH 0.1 T4 normal rangerepea t labs in 6 weeks Abdominal pain 18633023 R10.9 see hpicontinu e zofran prn for nauseaEGD unremarkab le Urinary tr act infectious disease 76909130 N39.0 10/21: postive UAstart levofloxac in 250 mg for 5 daysstart probiotic 1 tab bid for 10 daysincrea se oral hydration. Mixed anxi ety and depressive disorder 876015339 F41.8 bupropion SR 150 mg dailymirta zapine 7.5 mg at hswill monitor Chronic pain 19572647 G8 9.29 diclofenac gel 1% to shoulders daily in eveningfen tanyl patch 50 mcg q72 hLidocaine patch to right shoulder and neck dailyAPAP 1000 mg tidtramado l 25 mg bidtizanid ine 4 mg bidprednis one 10 mg dailyPT/OT /PM&R prnwill monitor Atrial fibrillation 4943 6004 I48.0 continue apixaban 2.5 mg bid Gastroesop hageal reflux disease without esophagitis 714056001 K21.9 omeprazole 40 mg bidcontinu e zofran 4 mg q6 prn Edema 367015264 R60.0 continue furosemide 40 mg dailyconti nue metolazone 2.5 mg daily on , , Eczema 50618447 L30.9 triamcinol one 0.1 % cream BID Dyspnea 388512028 R06.00 continue albuterol inhaler prn for shortness of breath Osteoarthritis 280383322 M15.0 lidocaine patch right shoulder.f entanyl 50 mcg patch q72 hrAPAP 1000 mg tidtramado l 25 mg bid prnglucosa mine 500 mg tid Chronic neck pain 101102 8897 107 M54.2 continue gabapentin 100 mg BID Neuropathy 422071064 G62 .9 continue gabapentin 100 mg BID. 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 [id number] NELDA MANSFIELD [address] [address] 11/26/2023 18:58:29 12/01/2023 10:07:02 Pain of left heel 0120902936 497096 M79.672 skin prep to bilateral heels BIDoff load heels on pillow when in bedmonitor for worsening sx.Risk factor discussed diabetes ,immobilit y, age [id number] NELDA MANSFIELD [address] [address] 12/14/2023 08:12:26 12/17/2023 13:25:50 Eczema 77734625 L30.9 bilateral lower extremitie s rash with scattered patches dry and redhx chronic edema, there is potential for weeping/oo zingtriamc inolone 0.1 % cream BIDmoistur izes legs daily Pain in right heel 97362 34320 643753 M79.671 right heel red and boggywill add skin prep BIDoffload heels when in bedwear socks with shoes Neuropathy 566875560 G62 .9 reports increasing bilateral leg painwill increase gabapentin to 200 mg BID and re assess for inprovemen t. [id number] NELDA MANSFIELD [address] [address] 01/12/2024 12:10:02 01/13/2024 16:55:18 Easy bruising 166339453 R58 reddish mid upper chest bruising, skin intactshe is noted with scattered bruising on shoulder as well.she takes eliquis and prednisone , diuretic dailywill continue to monitor.wi ll check iron studies and VIT D on next lab day. Hypothyroidism 73680970 E03.8 continue levothyrox ine 175 mcgTSH now 1.74contin ue to monitor. [id number] MD KAREEM Whitaker [place] [address] [place], [place] [address] 02/01/2024 21:46:09 02/17/2024 11:18:25 Chronic pain 78746473 G89.29 Remains at baseline.C ontinue fentanyl patch 50 mcg q 72 hrs, salonpas patch to right shoulder qd, APAP 1000 mg TID, tramadol 25 mg BID, tizanidine 2 mg BID, and prednisone 10 mg qd.Continu e rehab as able.Monit or sxs. Mixed anxi ety and depressive disorder 343161630 F41.8 Mood good tonight.Co ntinue bupropion SR 150 mg qd and mirtazapin e 7.5 mg qhsMonitor mood.Psych follows Atrial fibrillation 4943 6004 I48.0 Rate remains in good control on no rate controllin g meds.Leonora nue eliquis 2.5 mg BID for AC.Monitor HR and bleeding risk. Type 2 russel betes mellitus 55466859 E11.9 Last HgA1C 7.6 in 03/2022.Sug ars in adequate control on diet control with occ. SSI.Monito r fingerstic ks TID, due for recheck of HgA1C, forgot to order. Gastroesop hageal reflux disease without esophagitis 362663278 K21.9 No current sxs.Contin ue omeprazole 40 mg BID.Monito r sxs Hypothyroidism 25152905 E03.8 TSH WNL.Contin ue levothyrox ine 225 mcg qdMonitor TSH yearly. Edema 677344988 R60.0 Marked tonight.Co ntinue furosemide 40 mg qd and metolazone 2.5 mg qd on T, , SaMonitor sxs. Eczema 33545987 L30.9 Much improved.C ontinue triamcinol one 0.1 % cream BID and house moisturize r qdMonitor Neuropathy 959165755 G62 .89 Gabapentin was increased to 200 mg BID on 12/14/23Som e improvemen t since then.Leonora nue other pain meds as above also.Monit or. [id number] ONEYDA BORWN, [facility] [address] [place] [address] 02/18/2024 11:02:37 02/20/2024 09:33:35 Edema 745771337 R60.0 Suspecting more may be going on, concern of CHF/fluid overload (L base crackles, increased SOB, cough) Edema worse, L>RIf 01/24 weight correct, has had a 14 lb. weight gain since 01/14. Plan -re-weigh today, increase frequency to 3x wk if weight truly upwrap legs dailyIncre ase lasix to 40 mg bidContinu e metolazone 2.5 mg qd on , SaGive extra metolazone 2.5 mg x 1 on 02/19Start KCL 30 meq po bid due to low K and increase in lasix, adjust as neededBNP x 1CXR x 1BMP q thursday x 3 to trend K and kidney functionCo nsider fluid restrictio nFurther work up as indicated Chronic pain 75860646 G8 9.29 Remains at baseline.C ontinue fentanyl patch 50 mcg q 72 hrs, salonpas patch to right shoulder qd, APAP 1000 mg TID, tramadol 25 mg BID, tizanidine 2 mg BID, and prednisone 10 mg qd.Continu e rehab as able.Monit or sxs. Mixed anxi ety and depressive disorder 565552399 F41.8 Mood goodContin ue bupropion SR 150 mg qd and mirtazapin e 7.5 mg qhsMonitor mood.Psych follows Atrial fibrillation 4943 6004 I48.0 Rate remains in good control on no rate controllin g meds.Leonora nue eliquis 2.5 mg BID for AC.Monitor HR and bleeding risk. Type 2 russel betes mellitus 76341045 E11.9 Last HgA1C 7.6 in 03/2022.Sug ars in adequate control on diet control with occ. SSI.Monito r fingerstic ks TID, due for recheck of HgA1C, forgot to order. Gastroesop hageal reflux disease without esophagitis 841017625 K21.9 No current sxs.Contin ue omeprazole 40 mg BID.Monito r sxs Hypothyroidism 12298131 E03.8 TSH WNL.Contin ue levothyrox ine 225 mcg qdMonitor TSH yearly. Eczema 88517963 L30.9 Much improved.C ontinue triamcinol one 0.1 % cream BID and house moisturize r qdMonitor Neuropathy 298823198 G62 .89 Gabapentin was increased to 200 mg BID on 12/14/23Som e improvemen t since then.Leonora nue other pain meds as above also.Monit or. Candidiasis of mouth 797 84234 B37.0 Aranda plaque on tongue.Voi ce hoarse, ? if also esophageal Nystatin Swish and swallow 5 ml qid x 30 daysMainta in oral hygeine, brush tongue Dental caries 36706160 K 02.9 Planning for teeth # 29 and 31 extraction s.Will hold clearance for now until fluid balance figured out.Will hold basaglar insulin the night before procedureW ill hold eliquis the day before and the day of procedureD oes not appear abx. proph. is warrantedC ardiac risk currently low for dental extraction s. Hypokalemia 17847919 E87 .6 K 3.1 on labs 02/16/24Pla n as above [id number] NELDA MANSFIELD [facility] [address] [place] [address] 02/23/2024 11:06:51 02/24/2024 15:45:14 Edema 273156180 R60.[address] xray did not show any pleural effusion.E bethany worse, L>RBNP 107weight at 6 am fo4r 3 days then M-W-Bayron-we igh today, increase frequency to 3x wk if weight truly upwrap legs dailywill change lasix to torsemide 20 mg daily.Cont inue metolazone 2.5 mg qd on , , Sacontinue KCL 30 meq daily- monitor LabsBMP q thursday x 3 to trend K and kidney functionCo nsider fluid restrictio nFurther work up as indicated Hypokalemia 66488400 E87 .6 02/21:Impro thomas 3.4continu e kcl 30 meq daily. Chronic pain 29228766 G8 9.29 Remains at baseline.C ontinue fentanyl patch 50 mcg q 72 hrs, salonpas patch to right shoulder qd, APAP 1000 mg TID, tramadol 25 mg BID, tizanidine 2 mg BID, and prednisone 10 mg qd.Continu e rehab as able.Monit or sxs. Mixed anxi ety and depressive disorder 904590647 F41.8 Mood goodContin ue bupropion SR 150 mg qd and mirtazapin e 7.5 mg qhsMonitor mood.Psych follows Atrial fibrillation 4943 6004 I48.0 Rate remains in good control on no rate controllin g meds.Leonora nue eliquis 2.5 mg BID for AC.Monitor HR and bleeding risk. Type 2 russel betes mellitus 60424933 E11.9 Last HgA1C 7.6 in 03/2022.Sug ars in adequate control on diet control with occ. SSI.Monito r fingerstic ks TID, due for recheck of HgA1C, forgot to order. Gastroesop hageal reflux disease without esophagitis 629821510 K21.9 No current sxs.Contin ue omeprazole 40 mg BID.Monito r sxs Hypothyroidism 09057734 E03.8 TSH WNL.Contin ue levothyrox ine 225 mcg qdMonitor TSH yearly. Eczema 51046403 L30.9 Much improved.C ontinue triamcinol one 0.1 % cream BID and house moisturize r qdMonitor Neuropathy 892497355 G62 .89 Gabapentin was increased to 200 mg BID on 12/14/23Som e improvemen t since then.Leonora nue other pain meds as above also.Monit or. Pneumonia 315141705 J18. 9 02/17: chest xray showed bilateral airspace opacities. No pleural effusion.S he was started on doxycyclin e 100 mg for 7 days. nursing reports that she continues to be very wheezy.patricia l discontinu ed doxycyclin e and start augmentin 500 mg TID for 10 days and azithromyc in 500 mg for 1 day and then continue 250 mg for 4 days .check VS q shiftencou rage fluid hydration. Vitamin D deficiency 347 37462 E55.9 12/06:Vit D level 20.4 - this is lower than previous levelwas taking cholecalci ferol 1000 unit daily -will increases to 50,000 unit weekly on thursday.patricia parkinson recheck in 2 months. [id number] BRYAN BERNARDO, NELDA HAYNES [address] [place] [address] 02/25/2024 10:46:10 02/29/2024 16:18:54 Edema 948208651 R60.[address] xray did not show any pleural effusion.E bethany worse, L>RBNP 107weight at 6 am fo4r 3 days then M-W-Bayron-we igh today, increase frequency to 3x wk if weight truly upwrap legs dailywill change lasix to torsemide 20 mg daily.Cont inue metolazone 2.5 mg qd on , , Sacontinue KCL 30 meq daily- monitor LabsBMP q thursday x 3 to trend K and kidney functionCo nsider fluid restrictio nFurther work up as indicated Hypokalemia 32359646 E87 .6 02/21:Impro thomas 3.4continu e kcl 30 meq daily. Chronic pain 63999048 G8 9.29 Remains at baseline.C ontinue fentanyl patch 50 mcg q 72 hrs, salonpas patch to right shoulder qd, APAP 1000 mg TID, tramadol 25 mg BID, tizanidine 2 mg BID, and prednisone 10 mg qd.Continu e rehab as able.Monit or sxs. Mixed anxi ety and depressive disorder 147692132 F41.8 Mood goodContin ue bupropion SR 150 mg qd and mirtazapin e 7.5 mg qhsMonitor mood.Psych follows Atrial fibrillation 4943 6004 I48.0 Rate remains in good control on no rate controllin g meds.Leonora nue eliquis 2.5 mg BID for AC.Monitor HR and bleeding risk. Type 2 russel betes mellitus 45579520 E11.9 Last HgA1C 7.6 in 03/2022.Sug ars in adequate control on diet control with occ. SSI.Monito r fingerstic ks TID, due for recheck of HgA1C, forgot to order. Gastroesop hageal reflux disease without esophagitis 369777107 K21.9 No current sxs.Contin ue omeprazole 40 mg BID.Monito r sxs Hypothyroidism 67254785 E03.8 TSH WNL.Contin ue levothyrox ine 225 mcg qdMonitor TSH yearly. Eczema 54965342 L30.9 Much improved.C ontinue triamcinol one 0.1 % cream BID and house moisturize r qdMonitor Neuropathy 354576567 G62 .89 Gabapentin 200 mg BIDreports bilateral lower extremity pain- noted with swelling >in LLE than RLE-awaiti ng ultrasound to r/o DVT. due to be done today at 3 pmPt willing to try diclofenac gel for lower extremity to see it helps with pain. Pneumonia 850702005 J18. 9 02/17: chest xray showed bilateral airspace opacities. No pleural effusion.S he was started on doxycyclin e 100 mg for 7 days. nursing reports that she continues to be very wheezy.patricia parkinson discontinu ed doxycyclin e and start augmentin 500 mg TID for 10 days and azithromyc in 500 mg for 1 day and then continue 250 mg for 4 days .check VS q shiftencou rage fluid hydration. Vitamin D deficiency 347 13719 E55.9 12/06:Vit D level 20.4 - this is lower than previous levelwas taking cholecalci ferol 1000 unit daily -will increases to 50,000 unit weekly on thursday.patricia parkinson recheck in 2 months. [id number] NELDA MANSFIELD [address] [address] 02/29/2024 18:11:58 03/01/2024 13:10:29 Pneumonia 912458512 J18.9 breathing is easy and unlabored: chest xray showed bilateral airspace opacities. No pleural effusion.c ontinue augmentin 500 mg TID until 03/04 and azithromyc in 500 mg for 1 day and then continue 250 mg for 4 days .check VS q shiftencou rage fluid hydration. [id number] NELDA MANSFIELD [address] [address] 03/16/2024 10:26:05 03/18/2024 10:30:33 Pneumonia 310041758 J18.9 completed abxbreathi ng is easy and unlabored Mixed anxi ety and depressive disorder 208307261 F41.8 Mood is stable.Con tinue:bupr opion SR 150 mg qdmirtazap ine 7.5 mg qhs-03/14 seen by psych with recommenda tion for GDR for mirtazapin e now ordered at 5 mg hs. patient in agreement. Monitor mood. [id number] NELDA MANSFIELD [address] [place] [address] 03/23/2024 11:08:46 03/31/2024 14:26:29 Edema 280084573 R60.0 Marked tonight.Co ntinue furosemide 40 mg qd and metolazone 2.5 mg qd on T, Th, SaMonitor sxs. Chronic pain 42554388 G8 9.29 Remains at baseline.C ontinue fentanyl patch 50 mcg q 72 hrs, salonpas patch to right shoulder qd, APAP 1000 mg TID, tramadol 25 mg BID, tizanidine 2 mg BID, and prednisone 10 mg qd.Continu e rehab as able.Monit or sxs. Mixed anxi ety and depressive disorder 516881862 F41.8 Continue bupropion SR 150 mg qd and mirtazapin e 7.5 mg qhsMonitor mood.Psych follows Atrial fibrillation 4943 6004 I48.0 Continue eliquis 2.5 mg BID for AC.Monitor HR and bleeding risk. Type 2 russel betes mellitus 82258920 E11.9 continue lantus 15 units at HSmonitor FS Gastroesop hageal reflux disease without esophagitis 980053229 K21.9 No current sxs.Contin ue omeprazole 40 mg BID.Monito r sxs Hypothyroidism 83462809 E03.8 TSH WNL.Contin ue levothyrox ine 175 mcgMonitor TSH yearly. Eczema 00141686 L30.9 Much improved.C ontinue triamcinol one 0.1 % cream BID and house moisturize r qdMonitor Neuropathy 381635822 G62 .89 Gabapentin 200 mg BIDMonitor . Hypokalemia 83891702 E87 .6 continue kcl 30 meq daily. Vitamin D deficiency 347 38297 E55.9 5/13 Vit D level 20.4 - this is lower than previous levelwas taking cholecalci ferol 1000 unit daily-incr eased to 50,000 unit weekly on thursday.patricia parkinson recheck vit d level on next lab day. [id number] NELDA MANSFIELD [facility] [address] [place] [address] 03/29/2024 10:37:33 03/31/2024 14:35:20 Mixed anxiety and depressive disorder 610004642 F41.8 Mood is stable todayConti nue:buprop ion SR 150 mg qdwith trial gdr off mirtazapin e 7.5 mg qhs-decrea sed to 3.75 mgMonitor mood, patient will report unwanted side effects of gdr such as increased anxiety, restlessne ss, insomnia [id number] NELDA MANSFIELD [facility] [address] [place] [address] 04/26/2024 14:44:48 05/02/2024 13:49:37 Cellulitis of left lower limb 0248254440 2952715 L03.116 Met sepsis criteria due to 101.5 ? ? ?F, WBC 19.2recent ly started on Keflex for left lower extremity cellulitis on 04/15.CT chest without any focal findings of pneumonia. s/p iv van and zosyndisch arge on take Augmentin till 04/24/24 Extravasat ion of intravenous contrast medium 507772310 T80.818A In acute care found to have left arm swelling tx conservati vely with warm compress and elevation. Atrial fibrillation 4943 6004 I48.0 Continue eliquis 2.5 mg BID for AC.Monitor HR and bleeding risk. Hypothyroidism 84519823 E03.8 TSH WNL.Contin ue levothyrox ine 175 mcgMonitor TSH yearly. Gastroesop hageal reflux disease without esophagitis 685342342 K21.9 No current sxs.Contin ue omeprazole 40 mg BID.Monito r sxs Osteoarthritis 109540236 M15.0 lidocaine patch right shoulder.f entanyl 50 mcg patch q72 hrAPAP 1000 mg tidtramado l 25 mg bid prnglucosa mine 500 mg tid Type 2 russel betes mellitus 77758865 E11.9 continue lantus 15 units at [facility] FS [id number] NELDA MANSFIELD [address] [place] [address] 05/02/2024 09:59:17 05/03/2024 11:50:42 Cellulitis of left lower limb 1140987967 6316871 L03.116 05/02: see hpiLLE edema and pain, patient thinks she needs more abx, we discussed physical findings, exam reassuring , not convinced swelling/p ain is due to infection. awaiting ultrasound to r/o DVTreitera cassie to apply wilma wrap daily. Met sepsis criteria due to 101.5 ? ? ?F, WBC 19.2recent ly started on Keflex for left lower extremity cellulitis on 04/15.CT chest without any focal findings of pneumonia. s/p iv van and zosyndisch arge on take Augmentin till 04/24/24 Extravasat ion of intravenous contrast medium 000638677 T80.818A In acute care found to have left arm swelling tx conservati vely with warm compress and elevation. Atrial fibrillation 4943 6004 I48.0 Continue eliquis 2.5 mg BID for AC.Monitor HR and bleeding risk.repor table sx reviewed. Hypothyroidism 85605674 E03.8 TSH WNL.Contin ue levothyrox ine 175 mcgMonitor TSH yearly. Gastroesop hageal reflux disease without esophagitis 234398553 K21.9 No current sxs.Contin ue omeprazole 40 mg BID.Monito r sxs Osteoarthritis 473001578 M15.0 fentanyl 50 mcg patch q72 hrAPAP 1000 mg tidtramado l 25 mg bid prnglucosa mine 500 mg tid Type 2 russel betes mellitus 01365910 E11.9 continue lantus 15 units at [facility] 117160 NELDA MANSFIELD [address] [place] [address] 05/05/2024 10:15:43 05/10/2024 15:49:53 Cellulitis of left lower limb 0858686549 4567175 L03.116 05/05: Ultrasound results reviewed, negative for DVT. 05/02: LLE edema and pain, patient thinks she needs more abx, we discussed physical findings, exam reassuring , not convinced swelling/p ain is due to infection. awaiting ultrasound to r/o DVTreitera cassie to apply wilma wrap daily. Atrial fibrillation 4943 6004 I48.0 stable without sx.Continu e eliquis 2.5 mg BID for AC.Monitor HR and bleeding risk.repor table sx reviewed. Gastroesop hageal reflux disease without esophagitis 927582330 K21.9 stableNo current sxs.Contin ue omeprazole 40 mg BID.Monito r sxs Osteoarthritis 207039754 M15.0 stablefent anyl 50 mcg patch q72 hrAPAP 1000 mg tidtramado l 25 mg bid prn Type 2 russel betes mellitus 36359689 E11.9 continue lantus 15 units at [facility] FS [id number] NELDA MANSFIELD [address] [place] [address] 05/09/2024 11:51:06 05/10/2024 16:10:25 Cellulitis of left lower limb 7644434721 5570819 L03.116 resolved Atrial fibrillation 4943 6004 I48.0 stable without sx.Continu e eliquis 2.5 mg BID for AC.Monitor HR and bleeding risk.repor table sx reviewed. Gastroesop hageal reflux disease without esophagitis 911934195 K21.9 stableNo current sxs.Contin ue omeprazole 40 mg BID.Monito r sxs Osteoarthritis 577945523 M15.0 stablefent anyl 50 mcg patch q72 hrAPAP 1000 mg tidtramado l 25 mg bid Type 2 russel betes mellitus 84189413 E11.9 continue lantus 15 units at [facility] FS- mainly under 200sshe is without hypo/hyper glucose sx. Edema 763580839 R60.0 BLE decreased edema note, she is wearing wilma wrapsconti nue torsemide 20 mg daily and metolazone as ord. 240931 NELDA MANSFIELD [facility] [address] [place] [address] 05/12/2024 11:47:54 05/13/2024 11:46:56 Atrial fibrillation 24187888 I48.0 stable without sx.Continu e eliquis 2.5 mg BID for AC.Monitor HR and bleeding risk.repor table sx reviewed. Gastroesop hageal reflux disease without esophagitis 667855340 K21.9 stableNo current sxs.Contin ue omeprazole 40 mg BID.Monito r sxs Osteoarthritis 322780329 M15.0 stablefent anyl 50 mcg patch q72 hrAPAP 1000 mg tidtramado l 25 mg bid Type 2 russel betes mellitus 33069270 E11.9 continue lantus 15 units at [facility] FS- mainly under 200sshe is without hypo/hyper glucose sx. Edema [id number] R60.0 BLE decreased edema note, she is wearing wilma wrapsconti nue torsemide 20 mg daily and metolazone as ord. Spinal roni nosis of lumbar region 82580824 M48.062 fentanyl patch 50 mcgprednis one 10 mg daily - taper to start 05/16/24de creasing by 1 mg per week. [id number] NELDA MANSFIELD [address] [address] 05/16/2024 08:25:38 05/18/2024 09:23:51 Atrial fibrillation [id number] I48.0 stable without sx.Continu e eliquis 2.5 mg BID for AC.Monitor HR and bleeding risk.repor table sx reviewed. Gastroesop hageal reflux disease without esophagitis 541185147 K21.9 stableNo current sxs.Contin ue omeprazole 40 mg BID.Monito r sxs Osteoarthritis 453516414 M15.0 stablefent anyl 50 mcg patch q72 hrAPAP 1000 mg tidtramado l 25 mg bid Type 2 russel betes mellitus 94842351 E11.9 continue lantus 15 units at [facility]- mainly under 200sshe is without hypo/hyper glucose sx. Edema 753810416 R60.0 BLE decreased edema note, she is wearing wilma wrapsconti nue torsemide 20 mg daily and metolazone as ord. Spinal roni nosis of lumbar region 64936007 M48.062 fentanyl patch 50 mcgprednis one 10 mg daily - taper to start 05/16/24de creasing by 1 mg per week. Itching of skin 57284556 0 L29.9 left shoulder is without redness or rashencour aged to apply lotion dailywill start claritin 10 mg daily. [id number] NELDA MANSFIELD [address] [address] 05/19/2024 11:11:15 05/23/2024 15:12:03 Atrial fibrillation [id number] I48.0 stable without sx.Continu e eliquis 2.5 mg BID for AC.Monitor HR and bleeding risk.repor table sx reviewed. Gastroesop hageal reflux disease without esophagitis 469449543 K21.9 stableNo current sxs.Contin ue omeprazole 40 mg BID.Monito r sxs Osteoarthritis 893591415 M15.0 stablefent anyl 50 mcg patch q72 hrAPAP 1000 mg tidtramado l 25 mg bid Type 2 russel betes mellitus 10511182 E11.9 continue lantus 15 units at [facility] FS- mainly under 200sshe is without hypo/hyper glucose sx. Edema 746661313 R60.0 BLE decreased edema note, she is wearing wilma wrapsconti nue torsemide 20 mg daily and metolazone as ord. Spinal roni nosis of lumbar region 85639760 M48.062 fentanyl patch 50 mcgprednis one 10 mg daily - taper to start 05/16/24de creasing by 1 mg per week. Itching of skin 93782002 0 L29.9 left shoulder is without redness or rashencour aged to apply lotion dailywill start claritin 10 mg daily. [id number] NELDA MANSFIELD [address] [address] 05/23/2024 07:53:51 05/24/2024 13:52:57 Atrial fibrillation 36737735 I48.0 stable without sx.Continu e eliquis 2.5 mg BID for AC.Monitor HR and bleeding risk.repor table sx reviewed. 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 Edema 295132625 R60.0 BLE decreased edema note, she is wearing wilma wrapsconti nue torsemide 20 mg daily and metolazone as ord. Spinal roni nosis of lumbar region 37816753 M48.062 fentanyl patch 50 mcgprednis one 10 mg daily - taper to start 05/16/24de creasing by 1 mg per week. Itching of skin 69060574 0 L29.9 left shoulder is without redness or rashencour aged to apply lotion dailywill start claritin 10 mg daily. [id number] NELDA MANSFIELD [address] [place] [address] 05/27/2024 07:54:05 05/30/2024 13:39:41 Atrial fibrillation 10754543 I48.0 stable without sx.Continu e eliquis 2.5 mg BID for AC.Monitor HR and bleeding risk.repor table sx reviewed. Gastroesop hageal reflux disease without esophagitis 646197375 K21.9 stableNo current sxs.Contin ue omeprazole 40 mg BID.Monito r sxs Osteoarthritis 829021517 M15.0 stablefent anyl 50 mcg patch q72 hrAPAP 1000 mg tidtramado l 25 mg bid Type 2 russel betes mellitus 41369826 E11.9 continue lantus 15 units at [facility]- mainly under 200sshe is without hypo/hyper glucose sxwill need updated A1c as we taper off prednisone Edema 199725343 R60.0 improved with compressio n stockings. continue torsemide 20 mg daily and metolazone as ord. Spinal roni nosis of lumbar region 96346624 M48.062 fentanyl patch 50 mcgprednis one 10 mg daily - tapering off 1 mg per weekdecrea sing by 1 mg per week. Itching of skin 33827920 0 L29.9 stableleft shoulder is without redness or rashencour aged to apply lotion dailywill start claritin 10 mg daily. [id number] [facility] [address] [place] [address] 06/02/2024 09:27:55 06/06/2024 12:53:38 Atrial fibrillation 86444203 I48.0 stable without sx.Continu e eliquis 2.5 mg BID for AC.Monitor HR and bleeding risk.repor table sx reviewed. Gastroesop hageal reflux disease without esophagitis 060290225 K21.9 reports hypogastri c non radiating pain+ nausea no vomitinNo current sxs.Contin ue omeprazole 40 mg BID.Monito r sxs Osteoarthritis 909781709 M15.0 stablefent anyl 50 mcg patch q72 hrAPAP 1000 mg tidtramado l 25 mg bid Type 2 russel betes mellitus 10298576 E11.9 stablecont inue lantus 15 units at [facility] FS- mainly under 200sshe is without hypo/hyper glucose sx Edema 943747830 R60.0 improved with compressio n stockings. continue torsemide 20 mg daily and metolazone as ord. Blister of lower leg without infection 96284118 S80.822A initially fluid filled with clear liquidnow burst-anais ent recently tx for cellulitis , I prefer wound to be tx with and antispetic nursing ord to cleanse with NS 0r warm soap and water dialy, paint with betadine with non adhesive dressing and kerlix. [id number] NELDA MANSFIELD [place] [address] [place] [address] 06/06/2024 08:41:07 06/07/2024 11:48:57 Atrial fibrillation 56249433 I48.0 stable without sx.Continu e eliquis 2.5 mg BID for AC.Monitor HR and bleeding risk.repor table sx reviewed. Gastroesop hageal reflux disease without esophagitis 776537131 K21.9 No current sxs.Contin ue omeprazole 40 mg BID.Monito r sxs Osteoarthritis 121959625 M15.0 stablefent anyl 50 mcg patch q72 hrAPAP 1000 mg tidtramado l 25 mg bid Type 2 russel betes mellitus 91101187 E11.9 stablecont inue lantus 15 units at [facility] FS- mainly under 200sshe is without hypo/hyper glucose sx Edema 413405512 R60.0 continue torsemide 20 mg daily and metolazone as ord. Blister of lower leg without infection 86883134 S80.822A initially fluid filled with clear liquidnow burst-anais ent recently tx for cellulitis , I prefer wound to be tx with and antispetic as well.adriani asia ord to cleanse with NS 0r warm soap and water dialy, paint with betadine cover with xeroform dressing and kerlix. [id number] NELDA MANSFIELD [address] [address] 06/16/2024 11:11:20 06/21/2024 11:07:01 Edema 329281783 R60.0 continue torsemide 20 mg daily and metolazone as ord. Blister of lower leg without infection 11664991 S80.822A initially fluid filled with clear liquidnow burst-anais ent recently tx for cellulitis , I prefer wound to be tx with and antispetic as well.alberto betancourt ord to cleanse with NS 0r warm soap and water dialy, paint with betadine cover with xeroform dressing and kerlix.sis landers reports wound is stable without sx of infectionf ollowed by wound , last seen yesterday 06/14 with recs to continue current tx ords. Dysuria 21727375 R30.0 send urine for UA with C&Swater encouraged to flush out toxins Fatigue 43729579 R53.83 recheck bmp, cbc, TSH,iron , ammonia and Vit B & D levels on 06/17 [id number] NELDA MANSFIELD [address] [address] 06/27/2024 12:04:26 06/30/2024 11:21:08 Cellulitis of right lower limb [id number] 9030457 L03.115 2/2 diabetes and decreased skin integrity from venous stasis and chronic prednisone usetx with IV ancef in acute carecomple cassie po abx keflex on 06/24follo wed by Wound Venous ins ufficiency of leg 881338638 I87.2 chronic BLE edema/RLE acute DVT /right almanza erupted skin blisterdis cussed with nursing, continue eliquis and wound tx with xeroform Acute deep venous thrombosis of femoral vein 1931297032 26612 I82.419 non occlusive/ RLEon eliquis 5 mg BID Chronic heart failure 48 935120 I50.9 acute on chronic/el evated BNP tx with IV lasixCXR showed interstiti al markings but difficult to interpret due to underlying fibrosisco ntinue torsemide and metolazone monitor labs Edema 695765301 R60.0 chroniccon team manager referral to lymphedema 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 [id number] NELDA MANSFIELD [facility] [address] [place] [address] [place] [address] 06/30/2024 08:36:09 07/01/2024 12:09:02 Cellulitis of right lower limb 3189476291 3176111 L03.115 completed abxdenies any pain, per nsg no erythema or warmth Venous ins ufficiency of leg 241875353 I87.2 chronic BLE edema/RLE acute DVT /right almanza erupted skin blisterdis cussed with nursing, continue eliquis and wound tx Acute deep venous thrombosis of femoral vein 0492576723 60958 I82.419 non occlusive/ RLEon eliquis 5 mg BID Chronic heart failure 48 790055 I50.9 acute on chronic/el evated BNP tx with IV lasixCXR showed interstiti al markings but difficult to interpret due to underlying fibrosisco ntinue torsemide and metolazone baseline crackles with hx of pulm. 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 Wound 310502377 T14.90 XA see pi2/2 to erupted blisterfol lowed by wound MD with recent changes to oil emulsion.r leticia provided why tx was changedwil l resume previous tx order of NS and betadine per patient request and have wound re evaldiscus sed with nursing [id number] NELDA MANSFIELD [facility] [address] [place] [address] [place] [address] 07/04/2024 10:17:37 07/05/2024 14:29:23 Venous insufficiency of leg 825039889 I87.2 stablechro gavin BLE edema/RLE acute DVT /right almanza erupted skin blisterdis cussed with nursing, continue eliquis and wound tx Acute deep venous thrombosis of femoral vein 8967617025 27751 I82.419 non occlusive/ RLEon eliquis 5 mg BID Chronic heart failure 48 607336 I50.9 acute on chronic/el evated BNP tx with IV lasixCXR showed interstiti al markings but difficult to interpret due to underlying fibrosisco ntinue torsemide and metolazone baseline crackles with hx of pulm. fibrosismo nitor labs Edema 023326012 R60.0 chronic/st abl;e with no increase on exam todayconsi jeff referral to lymphedema clinic - she often c/o pain, she is at increase risk for recurrent infection. Wound 346862795 T14.90 XA see pi2/2 to erupted blisterfol lowed by wound MD with recent changes to oil emulsion.r leticia provided why tx was changedwil l resume previous tx order of NS and betadine per patient request and have wound re evaldiscus sed with nursing [id number] NELDA MANSFIELD [address] [place] [address] [facility] [address] 07/07/2024 08:16:53 07/08/2024 13:27:39 Venous insufficiency of leg 274264448 I87.2 stablechro gavin BLE edema/RLE acute DVT /right almanza erupted skin blisterdis cussed with nursing, continue eliquis and wound txseen by wound MD with new order changes made in pcc. Acute deep venous thrombosis of femoral vein 1449232544 13864 I82.419 non occlusive/ RLEon eliquis 5 mg BID Chronic heart failure 48 770704 I50.9 continue torsemide and metolazone baseline crackles with hx of pulm. fibrosismo nitor labs Edema 799145768 R60.0 chronic/st ableconsid er referral to lymphedema clinic - she often c/o pain, she is at increase risk for recurrent infection. [id number] NELDA MANSFIELD [address] [place] [address] [facility] [address] 07/11/2024 10:40:35 07/12/2024 12:07:39 Venous insufficiency of leg 221519079 I87.2 stablechro gavin BLE edema/RLE acute DVT /right almanza erupted skin blisterdis cussed with nursing, continue eliquis and wound txfollowed by wound MD/continu e current tx orders. Acute deep venous thrombosis of femoral vein 4272350426 06237 I82.419 non occlusive/ RLEon eliquis 5 mg BID Chronic heart failure 48 195143 I50.9 baseline BLE edema, otherwise no worsening edema notedconti nue torsemide and metolazone baseline crackles with hx of pulm. fibrosismo nitor labs Edema 520748488 R60.0 chronic/st ableconsid er referral to lymphedema clinic - she often c/o pain, she is at increase risk for recurrent infection. 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 Health Concerns Section Related Observation LastModified by Organization Detai ls LastModified Time None Recorded Concern Status LastModified by Organization Details LastModified Time None Recorded Advance Directives Directive Y: Payers Encounter Date Sequence Insurance Name Policy Number Policy [place] Covered Member ID [place] Member ID Guarantor Name 07/07/2024 2 [place] [facility] [place] Alcaraz [id number] Dallas Alcaraz 07/07/2024 1 [place] B[place] [facility] Dallas Alcaraz [id number] Dallas Alcaraz 07/11/2024 2 [place] [facility] [place] Alcaraz [id number] Dallas Alcaraz 07/11/2024 1 [place] [facility] Dallas Alcaraz [id number] Dallas Alcaraz 07/15/2024 2 [place] [facility] Dallas Alcaraz [id number] Dallas Alcaraz 07/15/2024 1 [place] [facility] Dallas Alcaraz [id number] Dallas Alcaraz 07/18/2024 2 [place] [facility] Dallas Alcaraz [id number] Dallas Alcaraz 07/18/2024 1 [place] [employer] [facility] Dallas Rodneyell [id number] Dallas Alcaraz 07/21/2024 2 [place] [facility] Dallas Alcaraz [id number] Dallas Alcaraz 07/21/2024 1 [place] [facility] Dallas Rodneyell [id number] Dallas Alcaraz Notes Date Note Type Note Provider Name and Address Organization Details Recorded Time 07/07/2024 text/html Dallas is an 84 y r old femal seen for acute care visit follow up. she recently was readmitted to after acute care stay for tx of RLE cellulitis, acute on chronic CHF and non occlusive fem DVT. Seen sitting in wheelchair with feet elevated on bed. She is at her baseline, she has poor insight and needs re-educating about her chronic illnesses. past medical history significant for A-fib on Eliquis, Singh's esophagus, COPD, HLD/HTN, hypothyroidism, pulmonary fibrosis, pancreatitis, and history of PE NELDA MANSFIELD [address] [facility], [address], [place], [address], [facility] 07/07/2024 15:22:09 07/11/2024 text/html Dallas is an 84 y r old femal seen for acute care visit. For the past few days she has been doing well, appears to be her at usually baseline in NAD. Nursing reports wounds are stale, no worsening sx. She is eating and drinking ok. There are no acute nursing concerns. Past medical history significant for A-fib on Eliquis, Singh's esophagus, COPD, HLD/HTN, hypothyroidism, pulmonary fibrosis, pancreatitis, and history of PE NELDA MANSFIELD [address] [facility], [address], [place], [address], [facility] 07/11/2024 14:31:09 07/15/2024 text/html This is an 84 yr old women seen for acute rounding visit, she is reporting dysuria for a few days and states sx are similar to past UTI complaints. she denies any frequency or urgency, she has been afebrile. NELDA MANSFIELD [address] [facility], [address], [place], [address], [facility] 07/15/2024 12:35:05 07/18/2024 text/html This is an 84 yr old women seen for acute rounding visit for follow for dysuria. Recent UA negative for infection, pt updated on results, she now reports that she is no longer experiencing sx.she encouraged to increase fluid preferably water. NELDA MANSFIELD [address] [facility], [address], [place], [address], [facility] 07/18/2024 12:28:32 07/21/2024 text/html This is an 84 yr old women seen for acute rounding visit. She has been at baseline in NAD, today she is doing ok, there are no acute concerns. 07/21/24 Tested negative for covid NELDA MANSFIELD [address] [facility], [address], [place], [address], [facility] 07/21/2024 15:46:48 OBGyn Episode No OBEpisode recorded.
[2024-08-29 06:36] LABS: Basophils Absolute Auto 0.1 X10*3/uL (0.0-0.2); Basophils Percent Auto 0.4 % (0-2); Eosinophils Absolute Auto 0.2 X10*3/uL (0.0-0.4); Eosinophils Percent Auto 1.3 % (0-4); Hematocrit 35.6 % (37.0-47.0); Hemoglobin 11.4 g/dl (12.0-16.0); Imm Gran Pct Auto 0.7 % (0.0-0.4); Lymphocytes Absolute Auto 2.4 X10*3/uL (1.2-4.9); Lymphocytes Percent Auto 16.8 % (20-40); Mean Corpuscular Volume 90.6 fL (80.0-98.0); Mean Platelet Volume 9.9 fL (9.4-12.3); Monocytes Percent Auto 7.1 % (2-11); Neutrophils Absolute Auto 10.6 x10*3/uL (2.0-8.3); Neutrophils Percent Auto 73.7 % (45-73); Platelet Count 258 X10*3/uL (160-400); Red Blood Count 3.93 X10*6/uL (4.20-5.50); Red Cell Distribution Width 17.2 % (11.0-16.0); White Blood Count 14.4 X10*3/uL (4.8-10.8)
[2024-08-29 07:01] LABS: Anion Gap 16 (12-20); Blood Urea Nitrogen 25 mg/dL (9-16); Calcium 9.1 mg/dL (8.4-10.2); Carbon Dioxide 25 mmol/L (22-29); Chloride 102 mmol/L (96-108); Estimated Glomerular Filt Rate > 60; Glucose Random 67 mg/dL (60-115); Potassium 3.9 mmol/L (3.3-5.1); Sodium 139 mmol/L (135-145)
== END 2024-08-29 06:23 | disposition home or self-care (01) ==
LOC: HO.MMNH3L 06:22
PROVIDERS: Visit Provider Family Medicine
DX: I10 Essential (primary) hypertension (principal)
CPT/HCPCS: 36415; 80048; 85025

== ENCOUNTER 2024-09-26 06:14 | Outpatient (REF) | payer MEDICARE, SELFPAY ==
[2024-09-26 06:10] LABS: MANUAL DIFF FLAG NO
--- OUTSIDE RECORDS SUMMARY | 2024-09-26 06:20 | XMS_ITS | Data Portability ---
Author Organization [place] - [facility], Main Office Address [address] [facility], [address] [place] [address] Care Team Providers Care Solar Resource Assessor Name Role Phone KAREEM HAYNES 3RD FLOOR OTHER [phone] Assessment Encounter Date Assessment Date Assessment LastModified [...] Address Organization Details Recorded Time Severe pain 19728958 Active 2021 back pain BRYANNA URBANO, [place]KIE [address] [facility], [address], [place], [address], [facility] 13:15:21 Adult failure to thrive syndrome 342405856 Active 2021 BRYANNA URBANO NP [address], [address], [place], [address], [facility] 2 13:15:35 Fall Active 2021 BRYANNA URBANO NP [address], [address], [place], [address], [facility] 2 13:15:44 Gastroes ophageal reflux disease without esophagi tis 336182591 Active 2021 BRYANNA URBANO NP [address], [address], [place], [address], [facility] 13:16:01 Osteoart hritis 129608340 Active 2021 BRYANNA URBANO NP [address] [facility], [address], [place], [address], [facility] 2 13:16:10 Mixed anxiety and depressi ve disorder 152435386 Active 2021 BRYANNA URBANO NP [address] [facility], [address], [place], [address], [facility] 3 10:40:32 Hypothyr oidism 83747244 Active 2021 BRYANNA URBANO NP [address] [facility], [address], [place], [address], [facility] 2 13:16:28 Osteopor osis 55829004 Active 2021 BRYANNA URBANO NP [address], [address], [place], [address], [facility] 2 13:17:10 Atrial fibrilla tion 45649764 Active 2021 BRYANNA URBANO, [place] [address], [address], [place], [address], [facility] 2 14:21:30 Hyperlip idemia 27392246 Active 2021 BRYANNA URBANO, STATISTICAL ENGINEER [address] [facility], [address], [place], [address], [facility] 2 14:21:52 Spinal stenosis of lumbar region 90568545 Active 2021 Ana Damon MD [address] [facility], [address], [place], [address], [facility] 2 19:13:30 Edema 670430832 Active 2021 BRYANNA URBANO, STATISTICAL ENGINEER [address], [address], [place], [address], [facility] 2 13:22:11 Hypokale doretha 83842376 Active 2021 Ana Damon MD [address] [facility], [address], [place], [address], [facility] 2 23:44:02 Pancreat itis 92317051 Active 2021 BRYANNA URBANO, STATISTICAL ENGINEER [address] 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, [address], [place], [address], [facility] 3 12:37:52 COVID-19 890759665 Active 2021 BRYANNA YOLIE, STATISTICAL ENGINEER [address] [facility], [address], [place], [address], [facility] 2 10:44:44 Dislocat ion of shoulder joint 430663509 Active 2022 Margarette Awad NP [address] [facility], [address], [place], [address], [facility] 3 11:28:04 Chronic neck pain 60821144347 07 Active 2022 Ana Damon MD [address], [address], [place], [address], [facility] 3 21:36:27 Nausea 627984092 Active 2022 Ana Damon MD [address], [address], [place], [address], [facility] 3 21:36:31 Type 2 diabetes mellitus 60064132 Active 2022 Ana Damon MD [address], [address], [place], [address], [facility] 3 20:16:36 Contusio n of face 068992599 Active 2022 BRYANNA URBANO NP [address], [address], [place], [address], [facility] 3 12:37:45 Urinary tract infectio us disease 09033151 Active 2023 NELDA MANSFIELD [address], [address], [place], [address], [facility] 4 14:59:19 Dyspnea 014805363 Active 2023 NELDA MANSFIELD [address], [address], [place], [address], [facility] 4 22:03:33 Neuropat hy 974707792 Active 2023 NELDA MANSFIELD [address], [address], [place], [address], [email or web address] 4 22:17:58 Constipa tion 40204773 Active 2023 NELDA MANSFIELD [address], [address], [place], [address], [facility] 4 22:22:39 Chronic pain 57061470 Active 2023 Ana Damon MD [address], [address], [place], [address], [place] [facility] 4 10:49:48 Cellulit is 754892928 Active 2023 NELDA MANSFIELD [address] [facility], [address], [place], [address], [email or web address] 4 09:09:15 Manav contreras [id number] Completed 202306/06/2024 on predniso ne 10 mg daily NELDA MANSFIELD [address] [place] [address], [address], [place], [address], [email or web address] [facility] 4 15:48:25 Venous insuffic iency of leg 691275438 Active 2023 NELDA MANSFIELD [address] [place] [address], [address], [place], [address], [email or web address] [facility] 4 02:16:11 Chronic heart failure 00024489 Active 2023 NELDA MANSFIELD [address] [place] [address], [address], [place], [address], [facility] [employer] [facility] 4 02:24:16 Problem Notes None recorded. Medical Equipment None Reported. Allergies Allergen ID Allergen Name Allergen Category Reaction Reaction Severity Criticality Documentation Date Start Date Code Code System Note Provider Name and Address Organization Details Recorded Time 94453 amitripty line medicatio n Not available Not available Not available 09/25/2021 704 RxNorm Not Available Not Available Not Available 34313 morphine medicatio n Not available Not available Not available 09/25/2021 7052 RxNorm Not Available Not Available Not Available 66088 oxycodone medicatio n Not available Not available Not available 09/25/2021 7804 RxNorm Not Available Not Available Not Available 39484 Demerol medicatio n Not available Not available Not available 09/25/2021 56832 1 RxNorm Not Available Not Available Not Available 40245 Phenergan medicatio n Not available Not available Not available 09/25/2021 70081 8 RxNorm Not Available Not Available Not Available 68486 lactose food,medi cation Not available Not available Not available 09/25/2021 6211 RxNorm Not Available Not Available Not Available Medications Name Sig Start Date Stop Date Status Note LastModified by Organization Details LastModified Time fentanyl 50 mcg/hr transdermal patch Apply 1 patch every 72 hours by transdermal route in the morning, for chronic pain. 2024 active Not Available Not Available Not Avai lable tramadol 50 mg tablet Take 0.5 tablets twice a day by oral route. 2023 active Not Available Not Available Not Avai lable Vitals Date Recorded Body height Provider Name an d Address Organization Details Last Updated DateTime 07/07/2024 162.56 cm NELDA MANSFIELD [address] [facility], [address], [place], [address], [facility] 07/07/2024 08:58:12 Date Recorded Body height Provider Name an d Address Organization Details Last Updated DateTime 07/11/2024 162.56 cm NELDA MANSFIELD [address] [place] [address], [address], [place], [address], [facility] 07/11/2024 14:23:34 Date Recorded Body height Heart rate Oxygen saturation Oxygen saturation in Arterial blood by Pulse oximetry Provider Name and Address Organization Details Last Updated DateTime 07/21/2024 162.56 cm 78 /min 95 % 95 % DEEPAK MANSFIELD[address], [address], [place], [address] , [facility] 07/21/2024 15:42:40 Social History Question Answer Notes LastModified by Organizat ion Details LastModified Time Tobacco Smoking Status Former Smoker can't remember when she quit Ana Damon MD [address] [facility], [facility] [address], [place], [address], [facility] 09/26/2021 19:09:18 Do You Have An Advance Directive? Yes Information not available 09/26/2021 What Is Your Level Of Alcohol Consumption? None Information not available 09/25/2021 What Is Your Code Status? DNR/DNI Information not available 09/25/2021 Where Do You Live? [facility]. Was Living With Son, But He Is Not Home During The Day. Information not available 05/29/2023 Legal Guardian? No Informati on not available 09/26/2021 Do You Have A Medical Power Of Bellperson? Yes Invoked Information not available 09/26/2021 What [...] adjuvanted, quadrivalent, PF 05/21/2022 completed Dena maza, [facility] 08/17/2023 10:49:52 Influenza, adjuvanted, quadrivalent, PF 03/04/2023 completed Dena maza [facility] 08/17/2023 10:50:06 Past Encounters Encounter ID Performer Location Encounter Start Date Encounter Closed Date Diagnosis/Indication Diagnosis SNOMED-CT Code Diagnosis ICD10 Code Diagnosis Note [id number] MIKIE DUONG [address] [facility] [place] [address] 09/25/2021 09:13:56 09/30/2021 13:45:49 Severe pain 16272925 R52 fentanyl patch 50 mcgdilaudi d 1 mg q4hr prnprednis one 10 mg dailyrepos ition prnhospice consult and admission Osteoporosis 22706463 M8 1.0 methotrexa te 2.5 len dronate 70 thursdaypred nisone 10 mg daily Osteoarthritis 220057098 M19.90 dilaudid 1 mg q4 hr prnfentany l 50 mcg patch Mixed anxi ety and depressive disorder 874069720 F41.8 wellbutrin xl 150 mg bid Hypothyroidism 16712054 E03.9 levothyrox ine 200 mcg daily Gastroesop hageal reflux disease without esophagitis 793379240 K21.9 omeprazole 40 mg daily Adult fail ure to thrive syndrome 181620127 R62.7 encourage po intake fall W19.XXXA PT OT eval and treatfall precaution sfrequent safety checks Atrial fibrillation 4943 6004 I48.91 eliquis 5 mg bidlasix 40 mg daily Hyperlipidemia 18746076 E78.5 atorvastat in 40 mg daily [id number] Ana Damon MD [facility] [address] [facility] [address] [place] [address] 09/26/2021 15:54:36 09/30/2021 14:03:56 Osteoporosis 65441079 M81.0 Will d/c alendronat e Osteoarthritis 506565325 M15.0 Unclear what she is on MTX for, if it's OA or pulmonary fibrosis.C ontinue methotrexa te 2.5 mg weekly.Chelsi n control as above. Mixed anxi ety and depressive disorder 600691836 F41.8 Continue wellbutrin xl 150 mg BID.Monito r mood. Hypothyroidism 44185456 E03.8 With elevated TSH, but nl FT4. Will leave dosing as is for now, bayron. since pt is transition ing to hospice.Co ntinue levothyrox ine 200 mcg qd.No further labs. Gastroesop hageal reflux disease without esophagitis 145219656 K21.9 Continue omeprazole 40 mg qd.Monitor sxs/ Adult fail ure to thrive syndrome 281247683 R62.7 Continue oral supplement s as able. Fall W19.XXXA Unable to participat e in rehab.Cont inue fall precaution s.Monitor for safety. Atrial fibrillation 4943 6004 I48.0 Rate in good control on no rate controllin g meds.Leonora nue eliquis 5 mg BID for AC.Monitor HR and bleeding risk Hyperlipidemia 08371403 E78.49 Will d/c atorvastat inNo further labs Spinal roni nosis of lumbar region 24180404 M48.062 With continued distress, unclear how much is pain and how much is behavioral .Will start roxanol 5 mg q 4 hrs scheduled and q 1 hr prn. Hold for oversedati on.Continu e fentanyl patch 50 mcg q 72 hrs and dilaudid 1 mg q 4 hrs prnContinu e prednisone 10 mg qd.Hospice consult pending. [id number] BRYANNA URBANO NP [address] [address] 09/27/2021 10:49:34 09/30/2021 14:31:05 Mixed anxiety and depressive disorder 097957804 F41.8 wellbutrin xl 150 mg bid-pm dose is 50 mg a week decrease until donethen remeron can be startedris perdal 0.5 mg bidAIMs 0 Adult fail ure to thrive syndrome 672919241 R62.7 encourage po intakereme sonal 7.5 mg hs [id number] BRYANNA URBANO NP [address] [address] 09/30/2021 12:53:54 10/04/2021 13:57:38 Mixed anxiety and depressive disorder 935476133 F41.8 wellbutrin xl 150 mg bid-pm dose is 100 mg decrease for 7 days then discontinu ishan remeron can be startedris perdal 0.5 mg bid-decrea sed to 0.25 mg am, 0.5 mg hsAIMs 0 Adult fail ure to thrive syndrome 615036155 R62.7 encourage po intakereme sonal 7.5 mg hs when hs wellbutrin finished Spinal roni nosis of lumbar region 77246273 M48.062 fentanyl patch 50 mcg q72 daysdilaud id 1 mg q4hr prnprednis on 10 mg daily [id number] Ana Damon MD [address] [address] 10/01/2021 19:18:36 10/04/2021 14:59:14 Spinal stenosis of lumbar region 84112901 M48.062 Continue fentanyl patch 50 mcg q 72 hrs and dilaudid 1 mg q 4 hrs prnContinu e prednisone 10 mg qd.Reconsi jeff hospice consult if pt. not able to tolerate med changes as below. Mixed anxi ety and depressive disorder 216003628 F41.8 Continue Wellbutrin 150 mg qAM and PM dose 100 mg until 10/08 then d/c pm doseStart mirtazapin e 7.5 mg qhs on 10/08Contin ue risperdal 0.25 mg qam and 0.5 mg qhsMonitor effect. Adult fail ure to thrive syndrome 005079700 R62.7 encourage po intakeStar t remeron 7.5 mg hs when hs wellbutrin finished as above. [id number] BRYANNA URBANO NP [address] [address] 10/03/2021 10:04:53 10/09/2021 15:41:28 Adult failure to thrive syndrome 038372353 R62.7 encourage po intakereme sonal 7.5 mg hs when hs wellbutrin finished 10/08 Mixed anxi ety and depressive disorder 015823500 F41.8 wellbutrin xl 150 mg bid-pm dose is 100 mg decrease for 7 days then discontinu e 10/08then remeron can be startedris perdal 0.5 mg bid-decrea sed to 0.25 mg am, 0.5 mg hsAIMs 0 Severe pain 45030425 R52 fentanyl patch 50 mcgdilaudi d 1 mg q4hr prn-d/c due to lack of useprednis one 10 mg dailyrepos ition prnhospice consult and admissionr oxanol was d/c due to morphine allergy [id number] BRYANNA URBANO NP [address] [address] 10/09/2021 10:18:53 10/14/2021 14:25:24 Mixed anxiety and depressive disorder 769163103 F41.8 wellbutrin xl 150 mg bid-pm dose is 100 mg decrease for 7 days then discontinu e 10/08then remeron can be startedris perdal 0.5 mg hs-am dose d/cAIMs 0 Adult fail ure to thrive syndrome 793411663 R62.7 encourage po intakereme sonal 7.5 mg hs when hs wellbutrin finished 10/08 Severe pain 66836012 R52 fentanyl patch 50 mcgdilaudi d 1 mg q4hr prn-d/c due to lack of useprednis one 10 mg dailyrepos ition prnhospice consult and admissionr oxanol was d/c due to morphine allergy [id number] BRYANNA URBANO NP [address] [address] 10/11/2021 10:22:56 10/14/2021 15:05:22 Mixed anxiety and depressive disorder 951519156 F41.8 wellbutrin xl 150 mg bid-pm dose is 100 mg decrease for 7 days then discontinu e 10/08then remeron can be startedris perdal 0.5 mg hs-am dose d/cAIMs 0 Adult fail ure to thrive syndrome 355646742 R62.7 encourage po intakereme sonal 7.5 mg hs when hs wellbutrin finished 10/08 Severe pain 61883964 R52 fentanyl patch 50 mcgdilaudi d 1 mg q4hr prn-d/c due to lack of useprednis one 10 mg dailyrepos ition prnhospice consult and admissionr oxanol was d/c due to morphine allergy [id number] BRYANNA URBANO NP [address] [address] 10/14/2021 12:20:18 10/16/2021 14:26:14 Severe pain 54158076 R52 fentanyl patch 50 mcgprednis one 10 mg dailyrepos ition prnroxanol was d/c due to morphine allergy Mixed anxi ety and depressive disorder 996042091 F41.8 wellbutrin xl 150 mgremeron 7.5 mg dailyrispe rdal 0.5 mg hs-am dose d/cAIMs 0 Fall W19.XXXA PT OT eval and treatfall precaution sfrequent safety checks [id number] BRYANNA URBANO NP [address] [address] 10/16/2021 13:18:48 10/23/2021 10:49:11 Adult failure to thrive syndrome 338511560 R62.7 encourage po intakereme sonal 7.5 mg hs when hs wellbutrin finished 10/08 Mixed anxi ety and depressive disorder 309993858 F41.8 wellbutrin xl 150 mgremeron 7.5 mg dailyrispe rdal 0.5 mg hs-am dose d/cAIMs 0 Severe pain 43501794 R52 fentanyl patch 50 mcgprednis one 10 mg dailyrepos ition prnroxanol was d/c due to morphine allergy Edema 014091360 R60.9 lasix 40 mg daily will increase to bid for 7 days [id number] Su Frey [address] [address] 10/18/2021 11:22:25 10/23/2021 11:24:28 Adult failure to thrive syndrome 631642276 R62.7 Appetite improveden courage po intakereme sonal 7.5 mg QHSMonitor weights Mixed anxi ety and depressive disorder 253234953 F41.8 wellbutrin xl 150 mgremeron 7.5 mg dailyrispe rdal 0.5 mg hsMonitor moodPsych eval prn Severe pain 11006668 R52 fentanyl patch 50 mcgprednis one 10 mg dailyBack pain now well controlled Monitor Edema 651861473 R60.9 Lasix 40 mg BIDACE wraps BLEElevate legs as toleratedM onitor [id number] BRYANNA URBANO NP [address] [address] 10/21/2021 10:50:08 10/23/2021 11:52:29 Edema 987640039 R60.9 lasix 40 mg bidmetolaz one 2.5 mg tues, thursace wraps Severe pain 52423577 R52 fentanyl patch 50 mcgprednis one 10 mg dailyrepos ition prnroxanol was d/c due to morphine allergy [id number] BRYANNA URBANO NP [address] [address] 10/24/2021 10:43:36 10/29/2021 12:14:04 Edema 099137739 R60.9 lasix 40 mg bidmetolaz one 2.5 mg tues, thurs, add a dose sundayace wraps Adult fail ure to thrive syndrome 014446812 R62.7 encourage po intakereme sonal 7.5 mg hs Mixed anxi ety and depressive disorder 972546401 F41.8 wellbutrin xl 150 mgremeron 7.5 mg dailyrispe rdal 0.5 mg hs- decrease hs dose to 0.25 mgAIMs 0 [id number] BRYANNA URBANO NP [facility] [address] [place] [address] [place] [address] 10/30/2021 10:59:13 11/05/2021 10:01:44 Adult failure to thrive syndrome 783697630 R62.7 encourage po intakereme sonal 7.5 mg hs Mixed anxi ety and depressive disorder 872564588 F41.8 wellbutrin xl 150 mgremeron 7.5 mg dailyrispe rdal 0.25 mg- discontinu eAIMs 0 Severe pain 40776506 R52 fentanyl patch 50 mcgprednis one 10 mg dailyrepos ition prnroxanol was d/c due to morphine allergy [id number] Ana Damon MD [address] [place] [address] 11/19/2021 18:25:18 11/25/2021 15:04:26 Adult failure to thrive syndrome 449988174 R62.7 Doing much better. Wt. has been stable.Say s her appetite is good.Leonora nue mirtazapin e 7.5 mg qhs.Monito r wts. Mixed anxi ety and depressive disorder 095088236 F41.8 Mood good today.Cont inue wellbutrin XL 150 mg qd and mirtazapin e 7.5 mg qhsMonitor mood.Consu lt psych prn Severe pain 30261005 R52 Under good control on fentanyl patch 50 mcg q 3 days, prednisone 10 mg qd, and APAP prnRestart ing PT this week.Monit ro Edema 344374636 R60.0 Continue lasix 40 mg BID and metolazone 2.5 mg 2x/wk on & .Cont inue wilma wraps daily.Carmela tor Hypokalemia 70857580 E87 .6 With borderline low K+ for awhile. Has never been on K+ supplement .Will recheck next week and if still low will add KCL 10 meq qd.Monitor [id number] BRYANNA URBANO NP [facility] [address] [place] [address] [place] [address] 12/12/2021 10:09:42 12/17/2021 16:08:08 Adult failure to thrive syndrome 388052853 R62.7 Doing much better. Wt. has been stable.Say s her appetite is good.Leonora nue mirtazapin e 7.5 mg qhs.Monito r wts. Mixed anxi ety and depressive disorder 402005454 F41.8 Mood good today.well butrin XL 150 mg qd and mirtazapin e 7.5 mg qhsMonitor mood.Consu lt psych prn Severe pain 00082064 R52 Under good control on fentanyl patch 50 mcg q 3 days, prednisone 10 mg qd, and APAP prnRestart ing PT this week.Monit ro Edema 355192524 R60.0 lasix 40 mg BIDmetolaz one 2.5 mg 2x/wk on & .Cont inue wlima wraps daily.Carmela tor Hypokalemia 24697722 E87 .6 With borderline low K+ for awhile. Has never been on K+ supplement .Will recheck next week and if still low will add KCL 10 meq qd.Monitor Atrial fibrillation 4943 6004 I48.0 eliquis 5 mg bidlasix 40 mg bid daily Gastroesop hageal reflux disease without esophagitis 594108612 K21.9 omeprazole 40 mg daily Hyperlipidemia 05722892 E78.49 atorvastat in 40 mg daily Hypothyroidism 49076328 E03.8 levothyrox ine 200 mcg daily Osteoarthritis 641202043 M15.0 fentanyl 50 mcg patch q72 hr Osteoporosis 03610205 M8 1.0 methotrexa te 2.5 ayalen dronate 70 thursdaypred nisone 10 mg daily Spinal roni nosis of lumbar region 03269312 M48.062 fentanyl patch 50 mcg q72 hourspredn isone 10 mg daily Fall W19.XXXA PT OT eval and treatfall precaution sfrequent safety checks [id number] MIKIE DUONG [address] [place] [address] rd [place] [address] 01/03/2022 14:55:57 01/06/2022 20:46:48 Pancreatitis 72321578 K85.90 monitor for symptomsmo nitor labs Adult fail ure to thrive syndrome 707039001 R62.7 Doing much better. Wt. has been stable.Say s her appetite is good.gary zapine 7.5 mg qhs.Monito r wts. Mixed anxi ety and depressive disorder 408498252 F41.8 Mood good today.well butrin XL 150 mg bidmirtaza pine 7.5 mg qhsMonitor mood.Consu lt psych prn Severe pain 92411815 R52 Under good control on fentanyl patch 50 mcg q 3 days,predn isone 10 mg qd,APAP 650 mg q4hr prnPT OT eval and treat prnMonitor Edema 501701205 R60.0 lasix 40 mg BIDmetolaz one 2.5 mg 2x/wk on & , thursday.Con tinue wilma wraps daily.Carmela tor Hypokalemia 21016815 E87 .6 With borderline low K+ for awhile. Has never been on K+ supplement .Monitor Atrial fibrillation 4943 6004 I48.0 eliquis 5 mg bidlasix 40 mg bid dailymetol azone 2.5 mg , doan Gastroesop hageal reflux disease without esophagitis 847830488 K21.9 omeprazole 40 mg daily Hyperlipidemia 86140580 E78.49 atorvastat in 40 mg daily Hypothyroidism 27217548 E03.8 levothyrox ine 200 mcg daily Osteoarthritis 405840952 M15.0 fentanyl 50 mcg patch q72 hr Osteoporosis 66225540 M8 1.0 prednisone 10 mg daily Spinal roni nosis of lumbar region 26764774 M48.062 fentanyl patch 50 mcg q72 hourspredn isone 10 mg daily Fall W19.XXXA PT OT eval and treatfall precaution sfrequent safety checks [id number] MIKIE DUONG [address] [place] [address] 01/06/2022 10:28:02 01/09/2022 13:18:55 Edema 173933848 R60.0 lasix 40 mg BIDmetolaz one 2.5 mg 2x/wk on & thursday.Con tinue wilma wraps daily.Carmela tor Pancreatitis 66259832 K8 5.90 monitor for symptomsmo nitor labs [id number] MIKIE DUONG [place] [address] [place] [address] 01/08/2022 12:46:02 01/10/2022 16:30:00 Edema 038685635 R60.0 lasix 40 mg BIDmetolaz one 2.5 mg 2x/wk on & , thursday.Con tinue wilma wraps daily-comp ression stockingsM onitor Pancreatitis 49324347 K8 5.90 monitor for symptomsmo nitor labs [id number] BRYANNA URBANO NP [address] [address] 01/10/2022 11:53:05 01/14/2022 12:50:34 Hypothyroidism 36306191 E03.8 levothyrox ine 200 mcg daily-incr ease to 225 mcgrecheck tsh-free T4 in 6 weeks [id number] MD KAREEM Whitaker [place] [address] [place] [address] 02/11/2022 16:58:31 02/19/2022 16:14:54 Hypothyroidism 34769050 E03.8 Levothyrox ine was increased from 200 mcg qd to 225 mcg qd on 01/13 due to TSH of 12.24. Free T4 was WNL.Due for recheck of TSH and FT4 in a week or two. Adult fail ure to thrive syndrome 769068309 R62.7 Doesn't really have this dx anymore. Her wt. has been stable and her appetite is good.Leonora nue mirtazapin e 7.5 mg qhs.Monito r wts. Mixed anxi ety and depressive disorder 405642986 F41.8 Mood good today.Cont inue wellbutrin XL 150 mg qd and mirtazapin e 7.5 mg qhsMonitor mood.Psych following, may try a GDR. Edema 025579885 R60.0 Continue lasix 40 mg BID and metolazone 2.5 mg 2x/wk on & .Cont inue WILMA wraps qd.Monitor Chronic pancreatitis 235 573198 K86.1 Under good control on fentanyl patch 50 mcg q 3 days, prednisone 10 mg qd, and APAP 650 mg q 6 hrs prnMonitor . Degenerati ve joint disease involving multiple joints 692953591 M15.0 Pain control as above.Also diclofenac gel to shoulders BID and hands prn.Will add lidocaine patches to shoulders, low back and elbows as needed.PT/ OT as needed.Mon itor [id number] BRYANNA VELAMIKIE ALICEA KAREEM HAYNES [address] [place] [address] 02/25/2022 11:22:33 03/10/2022 20:26:15 Hypothyroidism 55019744 E03.8 levothyrox ine 225 mcgrecheck tsh-free T4 in 6 weeks Spinal roni nosis of lumbar region 94543140 M48.062 fentanyl patch 50 mcg q72 hourspredn isone 10 mg daily [id number] BRYANNA MIKIE URBANO KAEREM [address] [address] 03/28/2022 11:18:57 04/03/2022 10:05:40 Degenerative joint disease involving multiple joints 993637896 M15.0 tramadol 25 mg q6hr prndiclofe nac gel to shoulders BID and hands prn.Will add lidocaine patches to shoulders, low back and elbows as needed.PT/ OT as needed.Mon itor Severe pain 41709118 R52 Under good control on fentanyl patch 50 mcg q 3 days,predn isone 10 mg qd,APAP 650 mg q4hr prnPT OT eval and treat prnMonitor [id number] BRYANNA VELANIXON MIKIE [address] [address] 04/04/2022 10:53:36 04/08/2022 15:25:03 Mixed anxiety and depressive disorder 415668725 F41.8 Mood good today.well butrin XL 150 mg bidmirtaza pine 7.5 mg qhsMonitor mood.Consu lt psych prn Severe pain 91010468 R52 fentanyl patch 50 mcg q 3 days,predn isone 10 mg qd,APAP 1000 mg tidtramado l 25 mg bid prnPT OT eval and treat prnMonitor Edema 809690267 R60.0 lasix 40 mg BIDmetolaz one 2.5 mg 2x/wk on & , thursday.Con tinue wilma wraps daily.Carmela tor Hypokalemia 51183916 E87 .6 With borderline low K+ for awhile. Has never been on K+ supplement .Monitor Atrial fibrillation 4943 6004 I48.0 eliquis 5 mg bidlasix 40 mg bid dailymetol azone 2.5 mg , , doan Gastroesop hageal reflux disease without esophagitis 277048764 K21.9 omeprazole 40 mg daily Hyperlipidemia 08795515 E78.49 monitor Hypothyroidism 62924410 E03.8 levothyrox ine 225 mcg daily Osteoarthritis 324108950 M15.0 fentanyl 50 mcg patch q72 hrAPAP 1000 mg tidtramado l 25 mg bid prnglucosa mine 500 mg tid Osteoporosis 40127255 M8 1.0 prednisone 10 mg daily Spinal roni nosis of lumbar region 35905487 M48.062 fentanyl patch 50 mcg q72 hourspredn isone 10 mg daily Fall W19.XXXA PT OT eval and treatfall precaution sfrequent safety checks Adult fail ure to thrive syndrome 968766211 R62.7 Doing much better. Wt. has been stable.Say s her appetite is good.gary zapine 7.5 mg qhs.Monito r wts. Degenerati ve joint disease involving multiple joints 942230376 M15.0 tramadol 25 mg bid prndiclofe nac gel to shoulders BID and hands prn.Will add lidocaine patches to shoulders, low back and elbowsgluc osamine 500 mg bidPT/OT as needed.Mon itor [id number] MIKIE DUONG [address] [address] 04/10/2022 12:09:08 04/22/2022 16:17:48 Degenerative joint disease involving multiple joints 222011770 M15.0 tramadol 25 mg bid prndiclofe nac gel to shoulders BID and hands prn.Will add lidocaine patches to shoulders, low back and elbowsgluc osamine 500 mg bidtizanad ine 2 mg bidPT/OT as needed.Mon itor Severe pain 60769776 R52 fentanyl patch 50 mcg q 3 days,predn isone 10 mg qd,APAP 1000 mg tiddiclofe nac gel and lido patchestiz anidine 2 mg bidtramado l 25 mg bid prnPT OT eval and treat prnMonitor [id number] MIKIE DUONG [place] [address] [place], [place] [address], [place] [address] 05/07/2022 10:29:27 05/09/2022 15:20:45 Pancreatitis 90237441 K85.90 monitor for symptomsmo nitor labs Mixed anxi ety and depressive disorder 238700786 F41.8 Mood good today.well butrin XL 150 mg bidmirtaza pine 7.5 mg qhsMonitor mood.Consu lt psych prn Severe pain 54520448 R52 fentanyl patch 50 mcg q 3 days,predn isone 10 mg qd,APAP 1000 mg tidtramado l 25 mg bid prnPT OT eval and treat prnMonitor Edema 715442208 R60.0 lasix 40 mg BIDmetolaz one 2.5 mg 2x/wk on & , thursday.Con tinue wilma wraps daily.Carmela tor Hypokalemia 17546678 E87 .6 With borderline low K+ for awhile. Has never been on K+ supplement .Monitor Atrial fibrillation 4943 6004 I48.0 eliquis 5 mg bid-on hold due to buttock bruiselasi x 40 mg bid dailymetol azone 2.5 mg , doan Gastroesop hageal reflux disease without esophagitis 701148548 K21.9 omeprazole 40 mg daily Hyperlipidemia 44222096 E78.49 monitor Hypothyroidism 59605021 E03.8 levothyrox ine 225 mcg daily Osteoarthritis 401980331 M15.0 fentanyl 50 mcg patch q72 hrAPAP 1000 mg tidtramado l 25 mg bid prnglucosa mine 500 mg tid Osteoporosis 26679615 M8 1.0 prednisone 10 mg daily Spinal roni nosis of lumbar region 40549617 M48.062 fentanyl patch 50 mcg q72 hourspredn isone 10 mg daily Fall W19.XXXA PT OT eval and treatfall precaution sfrequent safety checks Adult fail ure to thrive syndrome 476397665 R62.7 Doing much better. Wt. has been stable.Say s her appetite is good.gary zapine 7.5 mg qhs.Monito r wts. Degenerati ve joint disease involving multiple joints 464951123 M15.0 tramadol 25 mg bid prndiclofe nac gel to shoulders BID and hands prn.Will add lidocaine patches to shoulders, low back and elbowsgluc osamine 500 mg bidPT/OT as needed.Mon itor Contusion 157359438 T14. 8XXA monitor bruising for extension or lesseningh old eliquis [id number] Samina Wilburn MD [facility] [place] [address] [place] [address] [place] [address] 05/30/2022 07:35:26 06/04/2022 16:14:23 Chronic pain 39800881 G89.29 diclofenac gel 1% to shoulders bid, to both hands and spine prnfentany l patch 50 mcg q72 hsalonpas patch to right shoulder dailyAPAP 1000 mg tidtramado l 25 mg bidtizanid ine 2 mg bidprednis one 10 mg dailyPT/OT /PM&R prnwill monitor Mixed anxi ety and depressive disorder 446685303 F41.8 bupropion SR 150 mg dailymirta zapine 7.5 mg at hswill monitor Hypothyroidism 70041041 E03.8 levothyrox ine 225 mcg dailywill monitor Atrial fibrillation 4943 6004 I48.0 consider restart ACheld due to hematoma Type 2 russel betes mellitus 12042436 E11.9 insulin aspart per sliding scalewill monitor Edema 406868388 R60.0 furosemide 40 mg dailymetol azone 2.5 mg daily on T, Th, Sawill monitor Gastroesop hageal reflux disease without esophagitis 454984453 K21.9 omeprazole 40 mg bidwill monitor Recurrent pancreatitis 475065815 K86.1 fu GI prnlow fat dietwill monitor [id number] MIKIE DUONG [address] [place] [address] [place] [address] 07/21/2022 10:43:42 08/01/2022 13:30:09 COVID-19 642823238 U07.1 07/20 covid positiveen courage po food and fluidscons ider ivf for anorexiaco nsider paxlovid or decadron for symptomsse nd to ED for decompensa tion [id number] MIKIE DUONG [place] [address] [place] [phone] 07/23/2022 11:28:07 08/01/2022 14:08:08 COVID-19 017189593 U07.1 07/20 covid positiveen courage po food and fluidscons ider ivf for anorexiaco nsider paxlovid or decadron for symptomsse nd to ED for decompensa tion Chronic pain 38046086 G8 9.29 diclofenac gel 1% to shoulders bid, to both hands and spine prnfentany l patch 50 mcg q72 hsalonpas patch to right shoulder dailyAPAP 1000 mg tidtramado l 25 mg bidtizanid ine 2 mg bidprednis one 10 mg dailyPT/OT /PM&R prnwill monitor Mixed anxi ety and depressive disorder 161428189 F41.8 bupropion SR 150 mg dailymirta zapine 7.5 mg at hswill monitor Hypothyroidism 13661512 E03.8 levothyrox ine 225 mcg dailywill monitor Atrial fibrillation 4943 6004 I48.0 eliquis 2.5 mg bidmonitor for any hematomas Type 2 russel betes mellitus 27828222 E11.9 insulin aspart per sliding scalewill monitor Edema 284187789 R60.0 furosemide 40 mg dailymetol azone 2.5 mg daily on T, Th, Sawill monitor Gastroesop hageal reflux disease without esophagitis 240221912 K21.9 omeprazole 40 mg bidwill monitor Recurrent pancreatitis 441435326 K86.1 fu GI prnlow fat dietwill monitor [id number] MIKIE DUONG [place] [address] [place] [phone] 07/25/2022 10:22:57 08/01/2022 15:15:29 COVID-19 630756423 U07.1 07/20 covid positiveen courage po food and fluidscons ider ivf for anorexiaco nsider paxlovid or decadron for symptomsse nd to ED for decompensa tion [id number] BRYANNA URBANO NP [address] [address] 07/30/2022 11:27:21 08/01/2022 15:57:11 COVID-19 688890085 U07.1 07/20 covid positive-a symptomati c, recovered by dateencour age po food and fluidscons ider ivf for anorexiaco nsider paxlovid or decadron for symptomsse nd to ED for decompensa tion [id number] BRYANNA URBANO NP KAREEM HAYNES [address] [place] [phone] 5 07/31/2022 12:15:38 08/05/2022 18:21:58 COVID-19 472012693 U07.1 07/20 covid positive-a symptomati c, recovered by dateencour age po food and fluidscons ider ivf for anorexiaco nsider paxlovid or decadron for symptomsse nd to ED for decompensa tionCXR ordered for 07/31 Pancreatitis 23670507 K8 5.90 monitor for symptomsmo nitor labs [id number] BRYANNA URBANO NP KAREEM [place] [address] [place] [phone] 08/01/2022 11:59:17 08/06/2022 08:14:07 COVID-19 504162601 U07.1 07/20 covid positive-a symptomati c, recovered by dateencour age po food and fluidscons ider ivf for anorexiaco nsider paxlovid or decadron for symptomsse nd to ED for decompensa tionCXR ordered for 07/31-negati ve for chf or pna [id number] Margarette Awad NP [address] [address] 08/09/2022 10:30:12 08/13/2022 13:00:41 COVID-19 718923612 U07.1 resolved- no new treatment in hospital documentof f isolation precaution scovid rapid negative in facility on 08/09/22 per nursingmon itor for sequelae note: 07/20 covid positive-a symptomati c, recovered by dateencour age po food and fluidscons ider ivf for anorexiaco nsider paxlovid or decadron for symptomsse nd to ED for decompensa tionCXR ordered for 07/31-negati ve for chf or pna Pancreatitis 58936518 K8 5.90 was treated with ivf, medication s, and pain adjuncts- now improvedmo nitor for symptomsav oid fatty foods on low fat dietmonito r labs Chronic pain 89499450 G8 9.29 contdiclof enac gel 1% to shoulders bid, to both hands and spine prnfentany l patch 50 mcg q72 hsalonpas patch to right shoulder dailyAPAP 1000 mg tidtramado l 25 mg bidtizanid ine 2 mg bidprednis one 10 mg dailyPT/OT for weakness and painwill monitor Recurrent pancreatitis 634811743 K86.1 fu GI prnlow fat dietwill monitor Dislocatio n of shoulder joint 770891762 S43.004A pt has right shoulder dislocatio ncontinue pain meds as belowsling and swath as toleratedp assive romPT/OTfu with Dr Velasquez outptmonit or for cms, pulses, disclorati on [id number] MIKIE DUONG [address] [address] 08/11/2022 10:07:53 08/13/2022 13:35:33 Pancreatitis 87646445 K85.90 monitor for symptomsmo nitor labswas treated with ivf, medication s, and pain adjuncts- now improvedmo nitor for symptomsav oid fatty foods on low fat diet Dislocatio n of shoulder joint 819537005 S43.004A pt has chronic right shoulder dislocatio ncontinue pain medssling and swath as toleratedp assive romPT/OTfu with Dr Velasquez outptmonit or for cms, pulses, disclorati on [id number] BRYANNA URBANO NP [address] [address] 08/25/2022 11:17:28 08/27/2022 14:05:17 Pancreatitis 02522796 K85.90 monitor for symptomsmo nitor labswas treated with ivf, medication s, and pain adjuncts- now improvedmo xifloxin 400 mg daily x4 daysmonito r for symptoms avoid fatty foods on low fat diet Dislocatio n of shoulder joint 129639118 S43.004A pt has chronic subluxatio n right shoulder dislocatio ncontinue pain meds as belowsling and swath as toleratedp assive romPT/OTfu with Dr Velasquez outptmonit or for cms, pulses, disclorati on Chronic pain 19632948 G8 9.29 contdiclof enac gel 1% to shoulders bid, to both hands and spine prnfentany l patch 50 mcg q72 hsalonpas patch to right shoulder dailyAPAP 1000 mg tidtramado l 25 mg bidtizanid ine 2 mg bidprednis one 10 mg dailyPT/OT for weakness and painwill monitor COVID-19 125871606 U07.1 resolved- no new treatment in hospital documentof f isolation precaution scovid rapid negative in facility on 08/09/22 per nursingmon itor for sequelae note: 07/20 covid positive-a symptomati c, recovered by dateencour age po food and fluidscons ider ivf for anorexiaco nsider paxlovid or decadron for symptomsse nd to ED for decompensa tionCXR ordered for 07/31-negati ve for chf or pna Recurrent pancreatitis 654028536 K86.1 f/u GI prnlow fat dietwill monitor [id number] MIKIE DUONG [address] [place] [address] 09/04/2022 10:39:19 09/08/2022 15:11:55 Dislocation of shoulder joint 686312964 S43.004A pt has chronic subluxatio n right shoulder dislocatio ncontinue pain meds as belowsling and swath as tolerated for comfort prnPT/Edilson/ u with Dr Velasquez outptmonit or for cms, pulses, disclorati on Mixed anxi ety and depressive disorder 159841159 F41.8 bupropion SR 150 mg dailymirta zapine 7.5 mg at hswill monitor [id number] MD KAREEM Lloyd [address] [place] [address] 10/01/2022 10:06:00 10/03/2022 11:00:52 Atrial fibrillation 64987684 I48.0 apixaban 2.5 mg bidwill monitor Recurrent pancreatitis 121949386 K86.1 fu GIlow fat dietwill monitor Gastroesop hageal reflux disease without esophagitis 173698424 K21.9 omeprazole 40 mg bidwill monitor Type 2 russel betes mellitus 60952909 E11.9 insulin aspart per sliding scalewill monitor Chronic pain 12371959 G8 9.29 diclofenac gel 1% to shoulders bid, to both hands and spine prnfentany l patch 50 mcg q72 hsalonpas patch to right shoulder dailyAPAP 1000 mg tidtramado l 25 mg bidtizanid ine 2 mg bidprednis one 10 mg dailyPT/OT /PM&R prnwill monitor Peripheral edema 1722955 00 R60.0 metolazone 2.5 mg Tu, Th, Sufurosemi de 40 mg bidwill monitor Hypothyroidism 91949485 E03.8 levothyrox ine 225 mcg dailywill monitor Mixed anxi ety and depressive disorder 855928620 F41.8 bupropion SR 150 mg dailymirta zapine 7.5 mg at hstizanidi ne 2 mg bidwill monitor Essential hypertension 13421826 I10 metolazone 2.5 mg daily on , , Safurosemi de 40 mg bidwill monitor [id number] MIKIE DUONG [address] [place] [address], [place] [address] 10/15/2022 14:06:21 10/20/2022 14:25:22 Atrial fibrillation 35134912 I48.0 apixaban 2.5 mg bidwill monitor Recurrent pancreatitis 660815837 K86.1 fu GIlow fat dietwill monitor Gastroesop hageal reflux disease without esophagitis 681912328 K21.9 omeprazole 40 mg bidwill monitor Type 2 russel betes mellitus 11815054 E11.9 insulin aspart per sliding scalewill monitor Chronic pain 27028898 G8 9.29 diclofenac gel 1% to shoulders bid, to both hands and spine prnfentany l patch 50 mcg q72 hsalonpas patch to right shoulder dailyAPAP 1000 mg tidtramado l 25 mg bidtizanid ine 2 mg bidprednis one 10 mg dailyPT/OT /PM&R prnwill monitor Peripheral edema 8173746 00 R60.0 metolazone 2.5 mg Tu, Th, Sufurosemi de 40 mg bidwill monitor Hypothyroidism 82376909 E03.8 levothyrox ine 225 mcg dailywill monitor Mixed anxi ety and depressive disorder 622022810 F41.8 bupropion SR 150 mg dailymirta zapine 7.5 mg at hstizanidi ne 2 mg bidwill monitor Essential hypertension 96575306 I10 metolazone 2.5 mg daily on , , Safurosemi de 40 mg bidwill monitor [id number] BRYANNA URBANO NP [address] [phone] 11/28/2022 13:21:24 12/03/2022 17:20:32 Atrial fibrillation 59295450 I48.0 apixaban 2.5 mg bidwill monitor Recurrent pancreatitis 967128113 K86.1 f/u GIlow fat dietwill monitor Gastroesop hageal reflux disease without esophagitis 441717554 K21.9 omeprazole 40 mg bidwill monitor Type 2 russel betes mellitus 79566620 E11.9 insulin aspart per sliding scalewill monitor Chronic pain 38601329 G8 9.29 diclofenac gel 1% to shoulders bid, to both hands and spine prnfentany l patch 50 mcg q72 hsalonpas patch to right shoulder dailyAPAP 1000 mg tidtramado l 25 mg bidtizanid ine 2 mg bidprednis one 10 mg dailyPT/OT /PM&R prnwill monitor Peripheral edema 4095392 00 R60.0 metolazone 2.5 mg , , Sufurosemi de 40 mg bidwill monitor Hypothyroidism 09534276 E03.8 levothyrox ine 225 mcg dailywill monitor Mixed anxi ety and depressive disorder 877710856 F41.8 bupropion SR 150 mg dailymirta zapine 7.5 mg at hstizanidi ne 2 mg bidwill monitor Essential hypertension 42664078 I10 metolazone 2.5 mg daily on , , Safurosemi de 40 mg bidwill monitor [id number] BRYANNA URBANO NP [address] [phone] 01/14/2023 14:00:23 01/16/2023 15:25:27 Mixed anxiety and depressive disorder 925495144 F41.8 bupropion SR 150 mg dailymirta zapine 7.5 mg at hstizanidi ne 2 mg bidwill monitor Severe pain 92546720 R52 fentanyl patch 50 mcg q 3 days,predn isone 10 mg qd,APAP 1000 mg tidtramado l 25 mg bid prnPT OT eval and treat prnMonitor Fall W19.XXXA PT OT eval and treatfall precaution sfrequent safety checks [id number] Samina Wilburn MD [facility] [place] [address] [place] [phone] 02/11/2023 10:06:26 02/13/2023 16:03:58 Mixed anxiety and depressive disorder 702479787 F41.8 bupropion SR 150 mg dailymirta zapine 7.5 mg at hswill monitor Atrial fibrillation 4943 6004 I48.0 apixaban 2.5 mg bidwill monitor Type 2 russel betes mellitus 81142388 E11.9 insulin aspart per sliding scalewill monitor Chronic pain 13755025 G8 9.29 diclofenac gel 1% to shoulders bid, to both hands and spine prnfentany l patch 50 mcg q72 hsalonpas patch to right shoulder dailyAPAP 1000 mg tidtramado l 25 mg bidtizanid ine 2 mg bidprednis one 10 mg dailyPT/OT /PM&R prnwill monitor Gastroesop hageal reflux disease without esophagitis 744268427 K21.9 omeprazole 40 mg bidwill monitor Hypothyroidism 68720699 E03.8 levothyrox ine 225 mcg dailywill monitor Edema 308458111 R60.0 furosemide 40 mg dailymetol azone 2.5 mg daily on , , Sawill monitor [id number] MD KAREEM Whitaker [address] [place] [phone] 03/20/2023 20:34:03 03/23/2023 14:49:16 Ecchymosis present 258524742 S80.02XA Probably bumped it and doesn't remember, no pain, so no tx needed.Mon itor for resolution and monitor for new ecchymoses . Nausea 056488300 R11.0 Mild, periodic and chronic.Wi ll start Zofran 4 mg q 6 hrs prnMonitor sxs. Chronic neck pain 956540 5109 107 M54.2 Already on multiple pain meds.Will start lidocaine patch to neck prn, pt. says it only hurts sometimes, so doesn't want it scheduled. Continue fentanyl patch 50 mcg q 72 hrs, APAP 1000 mg TID,tramad ol 25 mg BID,tizani dine 2 mg BID andprednis one 10 mg qd.Monitor sxs. [id number] MIKIE DUONG [address] [place] [phone] 5 04/03/2023 16:33:21 04/10/2023 09:59:49 Mixed anxiety and depressive disorder 768659221 F41.8 bupropion SR 150 mg dailymirta zapine 7.5 mg at hswill monitor Atrial fibrillation 4943 6004 I48.0 apixaban 2.5 mg bidwill monitor Type 2 russel betes mellitus 20263817 E11.9 insulin aspart per sliding scalewill monitor Chronic pain 57405596 G8 9.29 fentanyl patch 50 mcg q72 hsalonpas patch to right shoulder dailyAPAP 1000 mg tidtramado l 25 mg bidtizanid ine 2 mg bidprednis one 10 mg dailyPT/OT /PM&R prnwill monitor Gastroesop hageal reflux disease without esophagitis 675968840 K21.9 omeprazole 40 mg bidwill monitor Hypothyroidism 43255346 E03.8 levothyrox ine 225 mcg dailywill monitor Edema 580455597 R60.0 furosemide 40 mg dailymetol azone 2.5 mg daily on T, Th, Sawill monitor [id number] MD KAREEM Whitaker [address] [place] [phone] 05/29/2023 18:52:13 06/12/2023 13:46:31 Mixed anxiety and depressive disorder 300207974 F41.8 Mood good tonight.Co ntinue bupropion SR 150 mg qd and mirtazapin e 7.5 mg qhsMonitor mood.Psych follows Atrial fibrillation 4943 6004 I48.0 Rate in good control on no rate controllin g meds.Leonora nue eliquis 2.5 mg BID for AC.Monitor HR and bleeding risk. Type 2 russel betes mellitus 93956031 E11.9 Last HgA1C 7.6 in 03/2022.Sug ars in adequate control on diet control with occ. SSI.Monito r fingerstic ks TID, due for recheck of HgA1C, forgot to order. Chronic pain 88041488 G8 9.29 Will add diclofenac gel for hands BID.Contin ue fentanyl patch 50 mcg q 72 hrs, salonpas patch to right shoulder qd, APAP 1000 mg TID, tramadol 25 mg BID, tizanidine 2 mg BID, and prednisone 10 mg qd.Continu e rehab as able.Monit or sxs. Gastroesop hageal reflux disease without esophagitis 222488749 K21.9 No current sxs.Contin ue omeprazole 40 mg BID.Monito r sxs Hypothyroidism 13967396 E03.8 TSH WNL.Contin ue levothyrox ine 225 mcg qdMonitor TSH yearly. Edema 226407454 R60.0 At baseline.C ontinue furosemide 40 mg qd and metolazone 2.5 mg qd on T, Th, SaMonitor sxs. [id number] BRYANNA URBANO NP [address] [address] 06/29/2023 12:07:31 07/07/2023 18:16:09 Fall 7670106 W19.XXXA PT OT eval and treatfall precaution sfrequent safety checks Contusion of face 180806 004 S00.83XA monitor neurosmoni tor for any signs of infectionm onitor for resolution of the bruising [id number] BRYANNA URBANO NP [address] [address] 07/01/2023 12:23:08 07/07/2023 19:15:00 Contusion of face 756244025 S00.83XA monitor neurosmoni tor for any signs of infectionm onitor for resolution of the bruising Edema 735401817 R60.0 furosemide 40 mg dailymetol azone 2.5 mg daily on T, Th, Sawill monitor [id number] BRYANNA URBANO NP [address] [address] 07/24/2023 12:53:42 08/04/2023 13:25:11 Contusion of face 512953809 S00.83XA resolvedmo nitor neurosmoni tor for any signs of infectionm onitor for resolution of the bruising Edema 526791261 R60.0 furosemide 40 mg dailymetol azone 2.5 mg daily on , , Sawill monitor Fall W19.XXXA PT OT eval and treatfall precaution sfrequent safety checks Mixed anxi ety and depressive disorder 278119808 F41.8 bupropion SR 150 mg dailymirta zapine 7.5 mg at hswill monitor Atrial fibrillation 4943 6004 I48.0 apixaban 2.5 mg bidwill monitor Type 2 russel betes mellitus 29578457 E11.9 insulin aspart per sliding scalewill monitor Chronic pain 06907291 G8 9.29 fentanyl patch 50 mcg q72 hsalonpas patch to right shoulder dailyAPAP 1000 mg tidtramado l 25 mg bidtizanid ine 2 mg bidprednis one 10 mg dailyPT/OT /PM&R prnwill monitor Gastroesop hageal reflux disease without esophagitis 766914312 K21.9 omeprazole 40 mg bidwill monitor Hypothyroidism 33533321 E03.8 levothyrox ine 225 mcg dailywill monitor [id number] NELDA MANSFIELD [address] [place] [address] 5 09/03/2023 09:01:19 09/08/2023 15:59:59 Dry skin dermatitis 099848302 L85.3 see hpireports intermitte nt itchiness at timesfluid s encouraged Apply moisturize r to skin BIDhydorco rtisone cream TID prn 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 not appreciate d on examwarm salt water rinses QID prngood oral hygiene encourageb arcos teeth after mealschlor hexidine mouth wash qd and HS Toothache 43324742 K08.8 9 [id number] MD KAREEM Lloyd [address] [place] [phone] 5 09/23/2023 08:31:39 09/29/2023 10:26:59 Mixed anxiety and depressive disorder 958989617 F41.8 bupropion SR 150 mg dailymirta zapine 7.5 mg at hswill monitor Chronic pain 02306787 G8 9.29 diclofenac gel 1% to shoulders daily in eveningfen tanyl patch 50 mcg q72 hLidocaine patch to right shoulder and neck dailyAPAP 1000 mg tidtramado l 25 mg bidtizanid ine 2 mg bidprednis one 10 mg dailyPT/OT /PM&R prnwill monitor Atrial fibrillation 4943 6004 I48.0 apixaban 2.5 mg bidwill monitor Type 2 russel betes mellitus 63310567 E11.9 insulin aspart per sliding scalewill monitor Hypothyroidism 56566664 E03.8 levothyrox ine 225 mcg dailywill monitor Gastroesop hageal reflux disease without esophagitis 646836651 K21.9 omeprazole 40 mg bidwill monitor Edema 020894010 R60.0 furosemide 40 mg dailymetol azone 2.5 mg daily on T, Th, Sawill monitor Chronic dermatitis 20019 007 L20.89 d/c compressio n stockingst riamcinolo ne cream bidelevate d legswill monitor [id number] NELDA MANSFIELD [place] [address] [place] [phone] 5 09/24/2023 08:15:25 10/01/2023 11:35:02 Fall 2746780 W19.XXXA see hpiPT/OT eval and tx per facility protocolmi nimize fall risknursin g to educate pt on making sure wheelchair is in lock position and front wheels are facing forward before getting up out of chair. Contusion 606072535 T14. 8XXA Patient hit her right almanza against bed frame when she fell forwardnot ed with mild tenderness on eliquismon itor right almanza bruise for healing [id number] NELDA MANSFIELD [address] [phone] 5 10/13/2023 10:07:38 10/15/2023 15:15:36 Neuropathy 569026351 G62.9 bilateral lower extremity calf with tingling pain and tenderness she is not experience any pain relief with current pain medication spatient agrees to try gabapentin times one dose 100mg she will update nursing if she experience relief. Fatigue 53427334 R53.83 appears tirediron studies, tsh, t4, bmp and cbc, vit D and Vit B levels orderedwil l r/o UTI as well. Type 2 russel betes mellitus 84375069 E11.9 currently on lispro SSC will adjust coveragere cently added lantus 10 units10/12 increased lantus to 15 units Hypothyroidism 31117850 E03.8 levothyrox ine 225 mcg dailyord TSH, T4 for 10/13 [id number] NELDA MANSFIELD [address] [address] 10/19/2023 13:21:25 10/22/2023 12:31:39 Vitamin D deficiency 99120425 E55.9 VIt D level 22start cholecacif telly 1000 unit dailyreche ck Vitamin D level in 3-4 months Neuropathy 998287536 G62 .9 today she tells me that she has a postive effect with gabapentin and would like to continue, she has not had any pain.will scheduled gabapentin 100 mg BID Q12 Type 2 russel betes mellitus 71617506 E11.9 currently on lispro SSC will adjust coveragere cently added lantus 10 units10/12 increased lantus to 15 units10/18: FS have improved Hypothyroidism 09884290 E03.8 levothyrox ine 225 mcg dailyord TSH, T4 for 10/13 Pending Dry skin dermatitis 2600 19994 L85.3 posterior calf noted with red patchy areas that are dry and flakyrefus ed rx cream recommende thelma lee and has been using -goldbond creamuses her own with good effect per patient.wi monitor. [id number] NELDA MANSFIELD [address] [address] 10/30/2023 21:18:42 11/02/2023 15:19:50 Type 2 diabetes mellitus 81574039 E11.9 continue lispro SSCcontinu e lantus 15 unitsmonit or FS TID Hypothyroidism 97851326 E03.8 levothyrox ine decreased to 175 mcgTSH 0.1 T4 normal rangerepea t labs in 6 weeks Abdominal pain 54895551 R10.9 see hpicontinu e zofran prn for nauseaplan robin upcoming EGD. [id number] NELDA MANSFIELD [address] [address] 11/04/2023 10:45:41 11/16/2023 16:04:21 Type 2 diabetes mellitus 28941730 E11.9 continue lispro SSCcontinu e lantus 15 unitsmonit or FS TID Hypothyroidism 74506088 E03.8 levothyrox ine decreased to 175 mcgTSH 0.1 T4 normal rangerepea t labs in 6 weeks Abdominal pain 97794821 R10.9 see hpicontinu e zofran prn for nauseaEGD unremarkab le Urinary tr act infectious disease 27508025 N39.0 10/21: postive UAstart levofloxac in 250 mg for 5 daysstart probiotic 1 tab bid for 10 daysincrea se oral hydration. [id number] NELDA MANSFIELD [place] [address] [place] [address] [place] [address] 11/19/2023 10:42:12 11/27/2023 15:22:30 Type 2 diabetes mellitus 52227499 E11.9 continue lispro SSCcontinu e lantus 15 unitsmonit or FS TID Hypothyroidism 14034632 E03.8 levothyrox ine decreased to 175 mcgTSH 0.1 T4 normal rangerepea t labs in 6 weeks Abdominal pain 10540719 R10.9 see hpicontinu e zofran prn for nauseaEGD unremarkab le Urinary tr act infectious disease 58590476 N39.0 10/21: postive UAstart levofloxac in 250 mg for 5 daysstart probiotic 1 tab bid for 10 daysincrea se oral hydration. 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 bupropion SR 150 mg dailymirta zapine 7.5 mg at hswill monitor Chronic pain 61153368 G8 9.29 diclofenac gel 1% to shoulders daily in eveningfen tanyl patch 50 mcg q72 hLidocaine patch to right shoulder and neck dailyAPAP 1000 mg tidtramado l 25 mg bidtizanid ine 4 mg bidprednis one 10 mg dailyPT/OT /PM&R prnwill monitor Atrial fibrillation 4943 6004 I48.0 continue apixaban 2.5 mg bid Gastroesop hageal reflux disease without esophagitis 703775586 K21.9 omeprazole 40 mg bidcontinu e zofran 4 mg q6 prn Edema 937141222 R60.0 continue furosemide 40 mg dailyconti nue metolazone 2.5 mg daily on , , Eczema 63380656 L30.9 triamcinol one 0.1 % cream BID Dyspnea 190551721 R06.00 continue albuterol inhaler prn for shortness of breath Osteoarthritis 580555703 M15.0 lidocaine patch right shoulder.f entanyl 50 mcg patch q72 hrAPAP 1000 mg tidtramado l 25 mg bid prnglucosa mine 500 mg tid Chronic neck pain 458085 6743 107 M54.2 continue gabapentin 100 mg BID Neuropathy 600387804 G62 .9 continue gabapentin 100 mg BID. 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 [id number] NELDA MANSFIELD [address] [address] 11/26/2023 18:58:29 12/01/2023 10:07:02 Pain of left heel 4468542728 204164 M79.672 skin prep to bilateral heels BIDoff load heels on pillow when in bedmonitor for worsening sx.Risk factor discussed diabetes ,immobilit y, age [id number] NELDA MANSFIELD [address] [address] 12/14/2023 08:12:26 12/17/2023 13:25:50 Eczema 29242650 L30.9 bilateral lower extremitie s rash with scattered patches dry and redhx chronic edema, there is potential for weeping/oo zingtriamc inolone 0.1 % cream BIDmoistur izes legs daily Pain in right heel 65190 10048 797013 M79.671 right heel red and boggywill add skin prep BIDoffload heels when in bedwear socks with shoes Neuropathy 741129854 G62 .9 reports increasing bilateral leg painwill increase gabapentin to 200 mg BID and re assess for inprovemen t. [id number] NELDA MANSFIELD [address] [address] 01/12/2024 12:10:02 01/13/2024 16:55:18 Easy bruising 614021073 R58 reddish mid upper chest bruising, skin intactshe is noted with scattered bruising on shoulder as well.she takes eliquis and prednisone , diuretic dailywill continue to monitor.wi ll check iron studies and VIT D on next lab day. Hypothyroidism 34366219 E03.8 continue levothyrox ine 175 mcgTSH now 1.74contin ue to monitor. [id number] MD KAREEM Whitaker [place] [address] [place], [place] [address] 02/01/2024 21:46:09 02/17/2024 11:18:25 Chronic pain 14165716 G89.29 Remains at baseline.C ontinue fentanyl patch 50 mcg q 72 hrs, salonpas patch to right shoulder qd, APAP 1000 mg TID, tramadol 25 mg BID, tizanidine 2 mg BID, and prednisone 10 mg qd.Continu e rehab as able.Monit or sxs. Mixed anxi ety and depressive disorder 483575158 F41.8 Mood good tonight.Co ntinue bupropion SR 150 mg qd and mirtazapin e 7.5 mg qhsMonitor mood.Psych follows Atrial fibrillation 4943 6004 I48.0 Rate remains in good control on no rate controllin g meds.Leonora nue eliquis 2.5 mg BID for AC.Monitor HR and bleeding risk. 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 SSI.Monito r fingerstic ks TID, due for recheck of HgA1C, forgot to order. Gastroesop hageal reflux disease without esophagitis 724151413 K21.9 No current sxs.Contin ue omeprazole 40 mg BID.Monito r sxs Hypothyroidism 26309049 E03.8 TSH WNL.Contin ue levothyrox ine 225 mcg qdMonitor TSH yearly. Edema 412159299 R60.0 Marked tonight.Co ntinue furosemide 40 mg qd and metolazone 2.5 mg qd on T, , SaMonitor sxs. Eczema 71608016 L30.9 Much improved.C ontinue triamcinol one 0.1 % cream BID and house moisturize r qdMonitor Neuropathy 267797785 G62 .89 Gabapentin was increased to 200 mg BID on 12/14/23Som e improvemen t since then.Leonora nue other pain meds as above also.Monit or. [id number] ONEYDA BROWN, [facility] [address] [place] [address] 02/18/2024 11:02:37 02/20/2024 09:33:35 Edema 413173497 R60.0 Suspecting more may be going on, [...] nFurther work up as indicated Chronic pain 55110836 G8 9.29 Remains at baseline.C ontinue fentanyl patch 50 mcg q 72 hrs, salonpas patch to right shoulder qd, APAP 1000 mg TID, tramadol 25 mg BID, tizanidine 2 mg BID, and prednisone 10 mg qd.Continu e rehab as able.Monit or sxs. Mixed anxi ety and depressive disorder 711274952 F41.8 Mood goodContin ue bupropion SR 150 mg qd and mirtazapin e 7.5 mg qhsMonitor mood.Psych follows Atrial fibrillation 4943 6004 I48.0 Rate remains in good control on no rate controllin g meds.Leonora nue eliquis 2.5 mg BID for AC.Monitor HR and bleeding risk. Type 2 russel betes mellitus 19256667 E11.9 Last HgA1C 7.6 in 03/2022.Sug ars in adequate control on diet control with occ. SSI.Monito r fingerstic ks TID, due for recheck of HgA1C, forgot to order. Gastroesop hageal reflux disease without esophagitis 847861062 K21.9 No current sxs.Contin ue omeprazole 40 mg BID.Monito r sxs Hypothyroidism 57519995 E03.8 TSH WNL.Contin ue levothyrox ine 225 mcg qdMonitor TSH yearly. Eczema 04761084 L30.9 Much improved.C ontinue triamcinol one 0.1 % cream BID and house moisturize r qdMonitor Neuropathy 546986511 G62 .89 Gabapentin was increased to 200 mg BID on 12/14/23Som e improvemen t since then.Leonora nue other pain meds as above also.Monit or. Candidiasis of mouth 797 48753 B37.0 Aranda plaque on tongue.Voi ce hoarse, ? if also esophageal Nystatin Swish and swallow 5 ml qid x 30 daysMainta in oral hygeine, brush tongue Dental caries 03163935 K 02.9 Planning for teeth # 29 and 31 extraction s.Will hold clearance for now until fluid balance figured out.Will hold basaglar insulin the night before procedureW ill hold eliquis the day before and the day of procedureD oes not appear abx. proph. is warrantedC ardiac risk currently low for dental extraction s. Hypokalemia 72724503 E87 .6 K 3.1 on labs 02/16/24Pla n as above [id number] [facility]EL[facility] [address] [place] [phone] 02/23/2024 11:06:51 02/24/2024 15:45:14 Edema 024628372 R60.[address] xray did not show [...] restrictio nFurther work up as indicated Hypokalemia 07827830 E87 .6 02/21:Impro thomas 3.4continu e kcl 30 meq daily. Chronic pain 48170939 G8 9.29 Remains at baseline.C ontinue fentanyl patch 50 mcg q 72 hrs, salonpas patch to right shoulder qd, APAP 1000 mg TID, tramadol 25 mg BID, tizanidine 2 mg BID, and prednisone 10 mg qd.Continu e rehab as able.Monit or sxs. Mixed anxi ety and depressive disorder 151996530 F41.8 Mood goodContin ue bupropion SR 150 mg qd and mirtazapin e 7.5 mg qhsMonitor mood.Psych follows Atrial fibrillation 4943 6004 I48.0 Rate remains in good control on no rate controllin g meds.Leonora nue eliquis 2.5 mg BID for AC.Monitor HR and bleeding risk. Type 2 russel betes mellitus 77863789 E11.9 Last HgA1C 7.6 in 03/2022.Sug ars in adequate control on diet control with occ. SSI.Monito r fingerstic ks TID, due for recheck of HgA1C, forgot to order. Gastroesop hageal reflux disease without esophagitis 798987708 K21.9 No current sxs.Contin ue omeprazole 40 mg BID.Monito r sxs Hypothyroidism 18384115 E03.8 TSH WNL.Contin ue levothyrox ine 225 mcg qdMonitor TSH yearly. Eczema 51298406 L30.9 Much improved.C ontinue triamcinol one 0.1 % cream BID and house moisturize r qdMonitor Neuropathy 828093506 G62 .89 Gabapentin was increased to 200 mg BID on 12/14/23Som e improvemen t since then.Leonora nue other pain meds as above also.Monit or. Pneumonia 879862879 J18. 9 02/17: chest xray showed bilateral [...] rage fluid hydration. Vitamin D deficiency 347 95808 E55.9 12/06:Vit D level 20.4 - this is lower than previous levelwas taking cholecalci ferol 1000 unit daily -will increases to 50,000 unit weekly on thursday.patricia parkinson recheck in 2 months. [id number] BRYAN BERNARDO, NELDA HAYNES [address] [place] [address] 02/25/2024 10:46:10 02/29/2024 16:18:54 Edema 691828537 R60.[address] xray did not show [...] restrictio nFurther work up as indicated Hypokalemia 63478772 E87 .6 02/21:Impro thomas 3.4continu e kcl 30 meq daily. Chronic pain 67077612 G8 9.29 Remains at baseline.C ontinue fentanyl patch 50 mcg q 72 hrs, salonpas patch to right shoulder qd, APAP 1000 mg TID, tramadol 25 mg BID, tizanidine 2 mg BID, and prednisone 10 mg qd.Continu e rehab as able.Monit or sxs. Mixed anxi ety and depressive disorder 812516397 F41.8 Mood goodContin ue bupropion SR 150 mg qd and mirtazapin e 7.5 mg qhsMonitor mood.Psych follows Atrial fibrillation 4943 6004 I48.0 Rate remains in good control on no rate controllin g meds.Leonora nue eliquis 2.5 mg BID for AC.Monitor HR and bleeding risk. Type 2 russel betes mellitus 07638192 E11.9 Last HgA1C 7.6 in 03/2022.Sug ars in adequate control on diet control with occ. SSI.Monito r fingerstic ks TID, due for recheck of HgA1C, forgot to order. Gastroesop hageal reflux disease without esophagitis 737197055 K21.9 No current sxs.Contin ue omeprazole 40 mg BID.Monito r sxs Hypothyroidism 73486042 E03.8 TSH WNL.Contin ue levothyrox ine 225 mcg qdMonitor TSH yearly. Eczema 30481702 L30.9 Much improved.C ontinue triamcinol one 0.1 % cream BID and house moisturize r qdMonitor Neuropathy 409974540 G62 .89 Gabapentin 200 mg BIDreports bilateral lower extremity pain- noted with swelling >in LLE than RLE-awaiti ng ultrasound to r/o DVT. due to be done today at 3 pmPt willing to try diclofenac gel for lower extremity to see it helps with pain. Pneumonia 135014143 J18. 9 02/17: chest xray showed bilateral [...] rage fluid hydration. Vitamin D deficiency 347 17348 E55.9 12/06:Vit D level 20.4 - this is lower than previous levelwas taking cholecalci ferol 1000 unit daily -will increases to 50,000 unit weekly on thursday.patricia parkinson recheck in 2 months. [id number] NELDA MANSFIELD [address] [address] 02/29/2024 18:11:58 03/01/2024 13:10:29 Pneumonia 480910466 J18.9 breathing is easy and unlabored: chest xray showed bilateral airspace opacities. No pleural effusion.c ontinue augmentin 500 mg TID until 03/04 and azithromyc in 500 mg for 1 day and then continue 250 mg for 4 days .check VS q shiftencou rage fluid hydration. [id number] NELDA MANSFIELD [address] [address] 03/16/2024 10:26:05 03/18/2024 10:30:33 Pneumonia 701823203 J18.9 completed abxbreathi ng is easy and unlabored Mixed anxi ety and depressive disorder 151241796 F41.8 Mood is stable.Con tinue:bupr opion SR 150 mg qdmirtazap ine 7.5 mg qhs-03/14 seen by psych with recommenda tion for GDR for mirtazapin e now ordered at 5 mg hs. patient in agreement. Monitor mood. [id number] NELDA MANSFIELD [address] [place] [address] 03/23/2024 11:08:46 03/31/2024 14:26:29 Edema 043273737 R60.0 Marked tonight.Co ntinue furosemide 40 mg qd and metolazone 2.5 mg qd on T, Th, SaMonitor sxs. Chronic pain 61082704 G8 9.29 Remains at baseline.C ontinue fentanyl patch 50 mcg q 72 hrs, salonpas patch to right shoulder qd, APAP 1000 mg TID, tramadol 25 mg BID, tizanidine 2 mg BID, and prednisone 10 mg qd.Continu e rehab as able.Monit or sxs. Mixed anxi ety and depressive disorder 796649063 F41.8 Continue bupropion SR 150 mg qd and mirtazapin e 7.5 mg qhsMonitor mood.Psych follows Atrial fibrillation 4943 6004 I48.0 Continue eliquis 2.5 mg BID for AC.Monitor HR and bleeding risk. Type 2 russel betes mellitus 55074120 E11.9 continue lantus 15 units at HSmonitor FS Gastroesop hageal reflux disease without esophagitis 855944387 K21.9 No current sxs.Contin ue omeprazole 40 mg BID.Monito r sxs Hypothyroidism 69762598 E03.8 TSH WNL.Contin ue levothyrox ine 175 mcgMonitor TSH yearly. Eczema 09892395 L30.9 Much improved.C ontinue triamcinol one 0.1 % cream BID and house moisturize r qdMonitor Neuropathy 743854185 G62 .89 Gabapentin 200 mg BIDMonitor . Hypokalemia 06288499 E87 .6 continue kcl 30 meq daily. Vitamin D deficiency 347 53381 E55.9 5/13 Vit D level 20.4 - this is lower than previous levelwas taking cholecalci ferol 1000 unit daily-incr eased to 50,000 unit weekly on thursday.patricia parkinson recheck vit d level on next lab day. [id number] NELDA MANSFIELD [facility] [address] [facility] [place] [address] 03/29/2024 10:37:33 03/31/2024 14:35:20 Mixed anxiety and depressive disorder 815043746 F41.8 Mood is stable todayConti nue:buprop ion SR 150 mg qdwith trial gdr off mirtazapin e 7.5 mg qhs-decrea sed to 3.75 mgMonitor mood, patient will report unwanted side effects of gdr such as increased anxiety, restlessne ss, insomnia [id number] NELDA MANSFIELD [facility] [address] [facility] [place] [address] 04/26/2024 14:44:48 05/02/2024 13:49:37 Cellulitis of left lower limb 5768437415 2348114 L03.116 Met sepsis criteria due to 101.5 ? ? ?F, WBC 19.2recent ly started on Keflex for left lower extremity cellulitis on 04/15.CT chest without any focal findings of pneumonia. s/p iv van and zosyndisch arge on take Augmentin till 04/24/24 Extravasat ion of intravenous contrast medium 238517455 T80.818A In acute care found to have left arm swelling tx conservati vely with warm compress and elevation. Atrial fibrillation 4943 6004 I48.0 Continue eliquis 2.5 mg BID for AC.Monitor HR and bleeding risk. Hypothyroidism 70972829 E03.8 TSH WNL.Contin ue levothyrox ine 175 mcgMonitor TSH yearly. Gastroesop hageal reflux disease without esophagitis 590726567 K21.9 No current sxs.Contin ue omeprazole 40 mg BID.Monito r sxs Osteoarthritis 709557534 M15.0 lidocaine patch right shoulder.f entanyl 50 mcg patch q72 hrAPAP 1000 mg tidtramado l 25 mg bid prnglucosa mine 500 mg tid Type 2 russel betes mellitus 37642657 E11.9 continue lantus 15 units at [facility] FS [id number] NELDA MANSFIELD [address] [place] [address] 05/02/2024 09:59:17 05/03/2024 11:50:42 Cellulitis of left lower limb 1841825674 3020031 L03.116 05/02: see hpiLLE edema and pain, [...] 04/24/24 Extravasat ion of intravenous contrast medium 678740375 T80.818A In acute care found to have left arm swelling tx conservati vely with warm compress and elevation. Atrial fibrillation 4943 6004 I48.0 Continue eliquis 2.5 mg BID for AC.Monitor HR and bleeding risk.repor table sx reviewed. Hypothyroidism 88206820 E03.8 TSH WNL.Contin ue levothyrox ine 175 mcgMonitor TSH yearly. Gastroesop hageal reflux disease without esophagitis 477078049 K21.9 No current sxs.Contin ue omeprazole 40 mg BID.Monito r sxs Osteoarthritis 874664441 M15.0 fentanyl 50 mcg patch q72 hrAPAP 1000 mg tidtramado l 25 mg bid prnglucosa mine 500 mg tid Type 2 russel betes mellitus 00963815 E11.9 continue lantus 15 units at [facility] [id number] NELDA MANSFIELD [address] [place] [address] 05/05/2024 10:15:43 05/10/2024 15:49:53 Cellulitis of left lower limb 8159894090 9549202 L03.116 05/05: Ultrasound results reviewed, negative for [...] reviewed. Gastroesop hageal reflux disease without esophagitis 905242660 K21.9 stableNo current sxs.Contin ue omeprazole 40 mg BID.Monito r sxs Osteoarthritis 568508623 M15.0 stablefent anyl 50 mcg patch q72 hrAPAP 1000 mg tidtramado l 25 mg bid prn Type 2 russel betes mellitus 94461676 E11.9 continue lantus 15 units at [facility] FS [id number] NELDA MANSFIELD [address] [place] [address] 05/09/2024 11:51:06 05/10/2024 16:10:25 Cellulitis of left lower limb 5277549820 2379754 L03.116 resolved Atrial fibrillation 4943 6004 I48.0 stable without sx.Continu e eliquis 2.5 mg BID for AC.Monitor HR and bleeding risk.repor table sx reviewed. Gastroesop hageal reflux disease without esophagitis 400847727 K21.9 stableNo current sxs.Contin ue omeprazole 40 mg BID.Monito r sxs Osteoarthritis 230560788 M15.0 stablefent anyl 50 mcg patch q72 hrAPAP 1000 mg tidtramado l 25 mg bid Type 2 russel betes mellitus 03381588 E11.9 continue lantus 15 units at [facility] FS- mainly under 200sshe is without hypo/hyper glucose sx. Edema 225251739 R60.0 BLE decreased edema note, she is wearing wilma wrapsconti nue torsemide 20 mg daily and metolazone as ord. [id number] NELDA MANSFIELD [facility] [address] [place] [address] 05/12/2024 11:47:54 05/13/2024 11:46:56 Atrial fibrillation 76795798 I48.0 stable without sx.Continu e eliquis 2.5 mg BID for AC.Monitor HR and bleeding risk.repor table sx reviewed. Gastroesop hageal reflux disease without esophagitis 730224986 K21.9 stableNo current sxs.Contin ue omeprazole 40 mg BID.Monito r sxs Osteoarthritis 305845962 M15.0 stablefent anyl 50 mcg patch q72 hrAPAP 1000 mg tidtramado l 25 mg bid Type 2 russel betes mellitus 19725473 E11.9 continue lantus 15 units at [facility] FS- mainly under 200sshe is without hypo/hyper glucose sx. Edema 101321054 R60.0 BLE decreased edema note, she is wearing wilma wrapsconti nue torsemide 20 mg daily and metolazone as ord. Spinal roni nosis of lumbar region 92478733 M48.062 fentanyl patch 50 mcgprednis one 10 mg daily - taper to start 05/16/24de creasing by 1 mg per week. [id number] NELDA MANSFIELD [address] [address] 05/16/2024 08:25:38 05/18/2024 09:23:51 Atrial fibrillation 55449679 I48.0 stable without sx.Continu e eliquis 2.5 mg BID for AC.Monitor HR and bleeding risk.repor table sx reviewed. Gastroesop hageal reflux disease without esophagitis 923400683 K21.9 stableNo current sxs.Contin ue omeprazole 40 mg BID.Monito r sxs Osteoarthritis 987990915 M15.0 stablefent anyl 50 mcg patch q72 hrAPAP 1000 mg tidtramado l 25 mg bid Type 2 russel betes mellitus 39358334 E11.9 continue lantus 15 units at [facility] FS- mainly under 200sshe is without hypo/hyper glucose sx. Edema 042026648 R60.0 BLE decreased edema note, she is wearing wilma wrapsconti nue torsemide 20 mg daily and metolazone as ord. Spinal roni nosis of lumbar region 77308904 M48.062 fentanyl patch 50 mcgprednis one 10 mg daily - taper to start 05/16/24de creasing by 1 mg per week. Itching of skin 73138858 0 L29.9 left shoulder is without redness or rashencour aged to apply lotion dailywill start claritin 10 mg daily. [id number] NELDA MANSFIELD [address] [address] 05/19/2024 11:11:15 05/23/2024 15:12:03 Atrial fibrillation 93732119 I48.0 stable without sx.Continu e eliquis 2.5 mg BID for AC.Monitor HR and bleeding risk.repor table sx reviewed. Gastroesop hageal reflux disease without esophagitis 762792328 K21.9 stableNo current sxs.Contin ue omeprazole 40 mg BID.Monito r sxs Osteoarthritis 633721020 M15.0 stablefent anyl 50 mcg patch q72 hrAPAP 1000 mg tidtramado l 25 mg bid Type 2 russel betes mellitus 04635830 E11.9 continue lantus 15 units at [facility] FS- mainly under 200sshe is without hypo/hyper glucose sx. Edema 582305127 R60.0 BLE decreased edema note, she is wearing wilma wrapsconti nue torsemide 20 mg daily and metolazone as ord. Spinal roni nosis of lumbar region 57335646 M48.062 fentanyl patch 50 mcgprednis one 10 mg daily - taper to start 05/16/24de creasing by 1 mg per week. Itching of skin 79605175 0 L29.9 left shoulder is without redness or rashencour aged to apply lotion dailywill start claritin 10 mg daily. [id number] NELDA MANSFIELD [address] [address] 05/23/2024 07:53:51 05/24/2024 13:52:57 Atrial fibrillation 12406461 I48.0 stable without sx.Continu e eliquis 2.5 mg BID for AC.Monitor HR and bleeding risk.repor table sx reviewed. Gastroesop hageal reflux disease without esophagitis 221118308 K21.9 stableNo current sxs.Contin ue omeprazole 40 mg BID.Monito r sxs Osteoarthritis 885657575 M15.0 stablefent anyl 50 mcg patch q72 hrAPAP 1000 mg tidtramado l 25 mg bid Type 2 russel betes mellitus 89363002 E11.9 continue lantus 15 units at [facility]- mainly under 200sshe is without hypo/hyper glucose sx. Edema 193073274 R60.0 BLE decreased edema note, she is wearing wilma wrapsconti nue torsemide 20 mg daily and metolazone as ord. Spinal roni nosis of lumbar region 28746034 M48.062 fentanyl patch 50 mcgprednis one 10 mg daily - taper to start 05/16/24de creasing by 1 mg per week. Itching of skin 07680598 0 L29.9 left shoulder is without redness or rashencour aged to apply lotion dailywill start claritin 10 mg daily. [id number] NELDA MANSFIELD [address] [place] [address] 05/27/2024 07:54:05 05/30/2024 13:39:41 Atrial fibrillation 62269179 I48.0 stable without sx.Continu e eliquis 2.5 mg BID for AC.Monitor HR and bleeding risk.repor table sx reviewed. Gastroesop hageal reflux disease without esophagitis 946709828 K21.9 stableNo current sxs.Contin ue omeprazole 40 mg BID.Monito r sxs Osteoarthritis 832419114 M15.0 stablefent anyl 50 mcg patch q72 hrAPAP 1000 mg tidtramado l 25 mg bid Type 2 russel betes mellitus 66033613 E11.9 continue lantus 15 units at [facility]- mainly under 200sshe is without hypo/hyper glucose sxwill need updated A1c as we taper off prednisone Edema 454359935 R60.0 improved with compressio n stockings. continue torsemide 20 mg daily and metolazone as ord. Spinal roni nosis of lumbar region 31283661 M48.062 fentanyl patch 50 mcgprednis one 10 mg daily - tapering off 1 mg per weekdecrea sing by 1 mg per week. Itching of skin 63626472 0 L29.9 stableleft shoulder is without redness or rashencour aged to apply lotion dailywill start claritin 10 mg daily. [id number] [facility] [address] [place] [phone] 5 06/02/2024 09:27:55 06/06/2024 12:53:38 Atrial fibrillation [id number] I48.0 stable without sx.Continu e eliquis 2.5 mg BID for AC.Monitor HR and bleeding risk.repor table sx reviewed. Gastroesop hageal reflux disease without esophagitis [id number] K21.9 reports hypogastri c non radiating pain+ nausea no vomitinNo current sxs.Contin ue omeprazole 40 mg BID.Monito r sxs Osteoarthritis [id number] M15.0 stablefent anyl 50 mcg patch q72 hrAPAP 1000 mg tidtramado l 25 mg bid Type 2 russel betes mellitus 03818670 E11.9 stablecont inue lantus 15 units at [facility]- mainly under 200sshe is without hypo/hyper glucose sx Edema [id number] R60.0 improved with compressio n stockings. continue torsemide 20 mg daily and metolazone as ord. Blister of lower leg without infection [id number] S80.822A initially fluid filled with clear liquidnow burst-anais ent recently tx for cellulitis , I prefer wound to be tx with and antispetic nursing ord to cleanse with NS 0r warm soap and water dialy, paint with betadine with non adhesive dressing and kerlix. [id number] NELDA MANSFIELD [place] [address] [place] [address]-296 5 06/06/2024 08:41:07 06/07/2024 11:48:57 Atrial fibrillation [id number] I48.0 stable without sx.Continu e eliquis 2.5 mg BID for AC.Monitor HR and bleeding risk.repor table sx reviewed. Gastroesop hageal reflux disease without esophagitis 287171369 K21.9 No current sxs.Contin ue omeprazole 40 mg BID.Monito r sxs Osteoarthritis 529640269 M15.0 stablefent anyl 50 mcg patch q72 hrAPAP 1000 mg tidtramado l 25 mg bid Type 2 russel betes mellitus 60498198 E11.9 stablecont inue lantus 15 units at [facility] FS- mainly under 200sshe is without hypo/hyper glucose sx Edema 946951466 R60.0 continue torsemide 20 mg daily and metolazone as ord. Blister of lower leg without infection 58749534 S80.822A initially fluid filled with clear liquidnow burst-anais ent recently tx for cellulitis , I prefer wound to be tx with and antispetic as well.adriani asia ord to cleanse with NS 0r warm soap and water dialy, paint with betadine cover with xeroform dressing and kerlix. [id number] NELDA MANSFIELD [address] [address] 06/16/2024 11:11:20 06/21/2024 11:07:01 Edema 073918608 R60.0 continue torsemide 20 mg daily and metolazone as ord. Blister of lower leg without infection 98425853 S80.822A initially fluid filled with clear liquidnow [...] recs to continue current tx ords. Dysuria 93458425 R30.0 send urine for UA with C&Swater encouraged to flush out toxins Fatigue 74938971 R53.83 recheck bmp, cbc, TSH,iron , ammonia and Vit B & D levels on 06/17 [id number] NELDA MANSFIELD [address] [address] 5 06/27/2024 12:04:26 06/30/2024 11:21:08 Cellulitis of right lower limb [id number] L03.115 2/2 diabetes and decreased skin integrity from venous stasis and chronic prednisone usetx with IV ancef in acute carecomple cassie po abx keflex on 06/24follo wed by Wound Venous ins ufficiency of leg 088712385 I87.2 chronic BLE edema/RLE acute DVT /right almanza erupted skin blisterdis cussed with nursing, continue eliquis and wound tx with xeroform Acute deep venous thrombosis of femoral vein 5515307880 10936 I82.419 non occlusive/ RLEon eliquis 5 mg BID Chronic heart failure 48 028654 I50.9 acute on chronic/el evated BNP tx with IV lasixCXR showed interstiti al markings but difficult to interpret due to underlying fibrosisco ntinue torsemide and metolazone monitor labs Edema 617489240 R60.0 chroniccon pearl digger referral to lymphedema 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 [id number] [facility] [address] [place] [address] [place] [address] 06/30/2024 08:36:09 07/01/2024 12:09:02 Cellulitis of right lower limb [id number] 3858536 L03.115 completed abxdenies any pain, per nsg no erythema or warmth Venous ins ufficiency of leg 818545598 I87.2 chronic BLE edema/RLE acute DVT /right almanza erupted skin blisterdis cussed with nursing, continue eliquis and wound tx Acute deep venous thrombosis of femoral vein 5168232149 20437 I82.419 non occlusive/ RLEon eliquis 5 mg BID Chronic heart failure 48 105030 I50.9 acute on chronic/el evated BNP tx with IV lasixCXR showed interstiti al markings but difficult to interpret due to underlying fibrosisco ntinue torsemide and metolazone baseline crackles with hx of pulm. fibrosismo nitor labs Edema 509802308 R60.0 chroniccon pearl digger referral to lymphedema clinic - she often c/o pain, she is at increase risk for recurrent infection. Wound 643019316 T14.90 XA see pi2/2 to erupted blisterfol lowed by wound MD with recent changes to oil emulsion.r leticia provided why tx was changedwil l resume previous tx order of NS and betadine per patient request and have wound re evaldiscus sed with nursing [id number] [facility] [address] [place] [address] [place] [address] 07/04/2024 10:17:37 07/05/2024 14:29:23 Venous insufficiency of leg 967916424 I87.2 stablechro gavin BLE edema/RLE acute DVT /right almanza erupted skin blisterdis cussed with nursing, continue eliquis and wound tx Acute deep venous thrombosis of femoral vein 1134216496 48099 I82.419 non occlusive/ RLEon eliquis 5 mg BID Chronic heart failure 48 140561 I50.9 acute on chronic/el evated BNP tx with IV lasixCXR showed interstiti al markings but difficult to interpret due to underlying fibrosisco ntinue torsemide and metolazone baseline crackles with hx of pulm. fibrosismo nitor labs Edema 177306178 R60.0 chronic/st abl;e with no increase on exam todayconsi jeff referral to lymphedema clinic - she often c/o pain, she is at increase risk for recurrent infection. Wound 038209686 T14.90 XA see pi2/2 to erupted blisterfol lowed by wound MD with recent changes to oil emulsion.r leticia provided why tx was changedwil l resume previous tx order of NS and betadine per patient request and have wound re evaldiscus sed with nursing [id number] NELDA MANSFIELD [address] [place] [address] [facility] [address] 07/07/2024 08:16:53 07/08/2024 13:27:39 Venous insufficiency of leg 379044399 I87.2 stablechro gavin BLE edema/RLE acute DVT /right almanza erupted skin blisterdis cussed with nursing, continue eliquis and wound txseen by wound MD with new order changes made in pcc. Acute deep venous thrombosis of femoral vein 7224999473 09415 I82.419 non occlusive/ RLEon eliquis 5 mg BID Chronic heart failure 48 297232 I50.9 continue torsemide and metolazone baseline crackles with hx of pulm. fibrosismo nitor labs Edema 093820400 R60.0 chronic/st ableconsid er referral to lymphedema clinic - she often c/o pain, she is at increase risk for recurrent infection. [id number] NELDA MANSFIELD [address] [place] [address] [place] [address] 07/11/2024 10:40:35 07/12/2024 12:07:39 Venous insufficiency of leg 337162304 I87.2 stablechro gavin BLE edema/RLE acute DVT /right almanza erupted skin blisterdis cussed with nursing, continue eliquis and wound txfollowed by wound MD/continu e current tx orders. Acute deep venous thrombosis of femoral vein 6639979862 76490 I82.419 non occlusive/ RLEon eliquis 5 mg BID Chronic heart failure 48 717312 I50.9 baseline BLE edema, otherwise no worsening edema notedconti nue torsemide and metolazone baseline crackles with hx of pulm. fibrosismo nitor labs Edema 897716181 R60.0 chronic/st ableconsid er referral to lymphedema clinic - she often c/o pain, she is at increase risk for recurrent infection. 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 Mood is stable todayConti nue:buprop ion [...] Member ID Guarantor Name 07/07/2024 2 [place] [facility] [place]car[place] [id number] [place] Alcaraz 07/07/2024 1 [place] B[place] [facility] [place] Alcaraz [id number] [place] Alcaraz 07/11/2024 2 [place] [facility] [place] Alcar[place] [id number] [place] Alcaraz 07/11/2024 1 [place] [facility] [place] Alcaraz [id number] [place] Alcaraz 07/15/2024 2 [place] [facility] [place] Alcar[place] [id number] Dallas Alcaraz 07/15/2024 1 [place] [facility] [place] Alcaraz [id number] [place] Alcaraz 07/18/2024 2 [place] [facility] [place] Alcaraz [id number] Dallas Alcaraz 07/18/2024 1 [place] [employer] [facility] [place] Rodneyell [id number] [place] Alcaraz 07/21/2024 2 [place] [facility] [place] Alcaraz [id number] Dallas Alcaraz 07/21/2024 1 [place] [facility] [place] Rodneyell [id number] [place] Alcaraz Notes Date Note Type Note [...] and history of PE NELDA MANSFIELD [address] [facility], [address], [place], [address], [facility] 07/07/2024 15:22:09 07/11/2024 text/html [place] is [...] and history of PE NELDA MANSFIELD [address] [facility], [address], [place], [address], [employer] 07/11/2024 14:31:09 07/15/2024 text/html This is an 84 yr old women seen for acute rounding visit, she is reporting dysuria for a few days and states sx are similar to past UTI complaints. she denies any frequency or urgency, she has been afebrile. NELDA MANSFIELD [address] [facility], [address], [place], [address], [employer] 07/15/2024 12:35:05 07/18/2024 text/html This is an 84 yr old women seen for acute rounding visit for follow for dysuria. Recent UA negative for infection, pt updated on results, she now reports that she is no longer experiencing sx.she encouraged to increase fluid preferably water. NELDA MANSFIELD [address] [facility], [address], [place], [address], [employer] 07/18/2024 12:28:32 07/21/2024 text/html This is an 84 yr old women seen for acute rounding visit. She has been at baseline in NAD, today she is doing ok, there are no acute concerns. 07/21/24 Tested negative for covid NELDA MANSFIELD [address] [facility], [address], [place], [address], [employer] 07/21/2024 15:46:48 OBGyn Episode No OBEpisode recorded.
--- OUTSIDE RECORDS SUMMARY | 2024-09-26 06:20 | XMS_ITS | Data Portability ---
Author Organization [place] [facility] Address [address] [place] [id number] Care Team Providers Care Garnishment Specialist Name Role Phone ARIANNA SOW Primary Care Provider [facility] OTHER [phone] Assessment Encounter Date Assessment Date Assessment LastModified by Organization Details LastModified Time 08/17/2019 08/17/2019 Overview/History : 79 yo female new to and this provider who presents with complain of dry persistent cough. patient reports that her cough started about 2 weeks ago; she reports that cough is dry and states her lungs are hurting her when she coughs; reports chills but did not check her temp. Patient has not been evaluated for this cough and hasn't been taking any medications for it. Comorbidities: Asthma, hepatic cyst, diverticulitis, hypothyroidism, depression, anxiety, mesenteric panniculitis, diabetes, HTN, pancreatitis, osteoporosis, Jayy's esophagitis. Exam: elderly female, well appearing, no acute distress, non-toxic appearance; alert and oriented X3; ambulates independently with a walker at baseline Mucous membranes are pink and moist without lesions; Oropharynx without erythema or exudate. Nasal mucosa is pink and moist; nasal passages are patent bilaterally; ear canals are clear without erythema or discharge bilaterally; TMs are pearly abreu, non-bulging, non-erythematous Heart sounds are regular rate and rhythm; no audible murmurs, rubs, or gallops No signs of respiratory distress. Lung sounds are significant for mild scattered rhonchi in all fileds; no wheezing No edema, erythema or cyanosis of lower extremities DDx considered, but not limited to: URI Bronchitis - cough X2wk; consider bacterial causes at this time Asthma exacerbation - possible secondary to bronchitis; no wheezing is appreciated Pneumonia - scattered rhonchi appreciated upon lungs auscultation; reported chills; no fever whooping cough - no cough spells reported atelectasis Work up/Results: Chest xray Plan/Discussion: - based on clinical presentation bronchitis is the most likely cause of symptoms; will consider bacterial causes due to the duration of symptoms; will order chest xray to evaluate for possible pneumonia - start Azithromycin PO X5d; first dose given on scene - start tessalon perles PO TID PRN for cough - start ProAir PRN for cough/SOB - follow up with PCP as needed within 3-5 days or sooner if symptoms worsen or do not improve - advised when to seek immediate medical attention/911/ED - patient expressed understanding and agreed to tx plan In order to obtain further information and compare any laboratory results/values, I have accessed patient records on the [facility] Information Exchange. This information was pertinent in my medical decision making today. Time On Scene with Patient: 00:18:51 ama Not available 08/17/2019 16:05:58 04/24/2021 04/24/2021 Proper Personal Protective Equipment (PPE), including gloves, gown, shoe covers, eye protection and masks were donned and doffed appropriately and all equipment cleaned using approved technique with germicidal disposable wipes prior to and after care of this patient according to [facility]'s infection prevention protocols. 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 States her daughter noticed discoloration over her posterior LLE that is tender to touch and occasionally itchy. She denies any She denies any fever, chills, headache, dizziness, weakness, new cough, endorses post-nasal drip, denies sore throat, chest pain, palpitations, abdominal pain, nausea, vomiting or diarrhea. Exam: CV: Normal HR, no rubs/ murmurs/ gallops heard, 2+ radial pulses bilaterally, 2+ bilateral pedal edema and lower extremity edema half way up her calfs. 1+ DP pulses bilaterally Pulm: breath isolated rales right upper lobe anterior, all other LS CTA, and equal bilaterally, no wheeze/ rhonchi on auscultation. Speaks in full sentences, no increased work of breathing. GI: Soft, non-tender to palpation. No masses, normal bowel sounds. : No CVA tenderness bilaterally. MS: Self ambulatory patient, moves all limbs without deficit, no evidence of trauma, BLEE with right posterior calf discoloration measuring 3.5 cm X 3.5 xm with pale center and red ring around perimeter (see imaging results). RLE mid-calf 38cm, LLE 30 cm. Neuro: No focal deficits, patient GCS- 456, CN? s II-XII grossly normal DDx considered, but not limited to: aspiration pneumonia possible with rales present anterior RUL on exam and patients report of occasion coughing with food and drink. 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 DVT known in LLE, possible RLE d/t RLE 8 cm larger than left, less likely with no tenderness, warmth, palpable cord. Work up/Results: POC Chem-8: Na 134, K 4.2, CL 96, CO2 26, BUN 17, CR 1.O, GLU 155, iCA 1.15, HGB 11.3, HCT 35, AG 18 Plan/Discussion: Post thrombotic syndrome most likely diagnosis of tenderness and itching over RLE posterior calf ordered repeat duplex venous US bilateral lower extremities to look for progression in LLE and possible new DVT RLE. 2-view CXR for incidental finding of rales RUL anterior chest and patient's subjective report of occasional coughing with food and drink. POC Chem-8 to evaluate electrolytes in the setting of chronic hyponatremia. Patient agreed to continue to maintain her hydration with water; water bottle sitting beside her half empty. Called and spoke with daughter (JOSE) at the end of the visit to report what was found and plan of care with imaging. Report to the ER for acute symptoms of chest pain, worsened shortness of breath, severe weakness, fevers of 101.5 or greater, mental status changes, severe unrelieved headaches, inability to eat, drink, or walk. Pt and daughter verbalized understanding of all instructions provided. In order to obtain further information and compare any laboratory results/values, I have accessed patient records on the [facility] Information [facility]. This information was pertinent in my medical decision making today. Not available 04/24/2021 16:06:59 Plan of Treatment Reminders Order Date Submit Date Provider Last Modified By Organization Details Last Modified Time Details Appointments None recorded. Lab BMP + ionized calcium, serum or plasma 2020 [facility], [address], [place], [address], 14:20:55 BMP + ionized calcium, serum or plasma 2020 MEGAN [facility] (Centralized Electronic Ordering - All Locations), Patient Can Go To The Location Of Their Choice, [address] 20:59:40 Referral None recorded. Procedures None recorded. Surgeries None recorded. 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 Reason for portabilit y is immunocomp romised. 2020 [facility] ([facility] [address], [place], [address], 19:01:25 XR, chest, 2 view - right upper lobe (anterior) crackles on auscultati on 2020 [facility] ([facility] [address], [place], [address], 1 11:03:08 XR, chest, 2 view - REASON FOR PORTABILIT Y: FRAIL/FALL RISK 2019 020 [facility] ([facility] [address], [place], [address], 0 10:28:17 Medication Orders azithromyc in 250 mg tablet 2019 020 [id number], [address], [place], [id number], 1 14:39:29 azithromyc in 250 mg tablet 2019 020 [facility] #[id number], [address], [place], [id number], 1 14:39:29 ProAir HFA 90 mcg/actuat ion aerosol inhaler 2019 020 INTERFACE [facility] #[id number], [address], [place], [id number], 0 15:38:53 Tessalon Perles 100 mg capsule 2019 020 [email or web address] [facility] #79107, [address], [place], [id number], 1 14:43:23 Patient TargetsNo targets recorded. Patient Instructions Encounter Date Encounter Id Patient Instructions Last Modified By Organization Details Last Modified Time 08/17/2019 [id number] Acute Bronchitis Instructions BASIC INFORMATION Acute bronchitis is swelling and irritation in the air passages of your lungs. This irritation may cause you to cough or have other breathing problems. Acute bronchitis often starts because of another viral illness, such as a cold or the flu. The illness spreads from your nose and throat to your windpipe and airways. Bronchitis is often called a chest cold. Acute bronchitis lasts about 2 weeks and is usually not a serious illness. Most cases of bronchitis DO NOT require antibiotics. INSTRUCTIONS Medicines: Ibuprofen or acetaminophen: These medicines help lower a fever and treat aches. Refer to the bottles for proper dosing based on age and weight. Use as needed. Do not take either of these medicines for more than 3 days in a row. Prolonged use of Ibuprofen can hurt your kidney and stomach. Prolonged use of Tylenol can injure your liver. Cough medicine: Tngj-khn-skylnsj (OTC) medicine helps loosen mucus in your lungs and make it easier to cough up. OTC cough medicine should NOT be used in children under age 3. Inhalers: You may need an inhaler to help you breathe easier and cough less. Inhalers help to relax the airways An inhaler gives medicine in a mist form so that you can breathe it into your lungs. If you were given an inhaler, take 2 puffs, four times per day for 2 days. After that, just use as needed for increased coughing, wheezing or tightness in chest. Steroid medicine: You may have been given prednisone or another steroid medication which helps open your air passages so you can breathe easier. Antibiotics: In most cases, antibiotics are not necessary for bronchitis. However, if your provider did prescribe these for you, please complete the entire course. You should also ask your pharmacist for a good ayjn-wwj-jojfgsr probiotic to take while you are on the antibiotic to help prevent antibiotic induced diarrhea. A good probiotic should have two species of live, active cultures. How to use an inhaler: 1) Shake the inhaler well to make sure you get the correct amount of medicine per puff. Remove the cover from your inhaler's mouthpiece. 2) Exhale as much air from your lungs as you can. Put the mouthpiece in your mouth, past your front teeth and rest it on the top of your tongue. Do not block the mouthpiece opening with your tongue. 3) Breathe in through your mouth at a slow and steady rate. As you do this, press the inhaler to release the puff of medicine. When your lungs are full, hold your breath for 10 seconds. Then breathe out slowly through puckered lips or through your nose. 4) If you need to take more puffs, wait at least 1 minute between each puff. 5) Using a spacer / air chamber ensures that you get the maximum amount of medicine from the inhaler. 6) Rinse your mouth with water after you use the inhaler. This may keep you from getting a mouth infection or irritation. 7) Follow the instructions that come with your inhaler to clean it. Self Care: 1) Do not smoke or allow others to smoke around you. Please call the [email or web address] Quit Line at to help in smoking cessation. Avoid chemicals, fumes, and dust. 2) Stay well hydrated 3) Seek care immediately if you: - develop a fever - develop a rash - become increasingly short of breath or you do not begin to improve 3-5 days (it may take 10 days for complete improvement) - cough up blood - have chest pain unrelated to coughing 4) Make appointment to follow up with you doctor within one week or sooner if directed by your [facility] provider. If you develop any new or worsening symptoms and need after hours care, please go to nearest ER and/or call 911. If you have additional concerns or develop a change in your condition between 8am-10pm, please call [facility] at [phone] to help navigate your care. [email or web address] Not available 08/17/2019 15:38:34 04/24/2021 [id number] Thank you for yo ur visit with [facility] today. We cannot always find the exact cause of your symptoms during your initial visit. Please follow up with your primary care provider or specialist within 12-24 hours within 24-48 hours within 2-3 days to be rechecked or seek medical attention if your symptoms do not go away or get worse. If you develop any new or worsening symptoms and need after hours care, please go to nearest ER and/or call 911. If you have additional concerns or develop a change in your condition between 8am-10pm, please call [facility] at [phone] to help navigate your care. [email or web address] Not available 04/24/2021 15:28:43 Reason for Referral None Reported. Results Created Date Observation Date Name Description Value Unit Range Abnormal Flag Note LastModifiedBy Organization Detail LastModifiedTime 04/24/20 21 04/24/2021 BMP + IONIZ ED CALCI UM, SERUM OR PLASM A glu 155 mg/dL 70-105 Not Available [facility] [address] [place], [address], 04/25/2021 20:59:40 04/24/20 21 04/24/2021 BMP + IONIZ ED CALCI UM, SERUM OR PLASM A BUN 17 mg/dL 8-26 Not Available [facility] [address] [place], [address], 04/25/2021 20:59:40 04/24/20 21 04/24/2021 BMP + IONIZ ED CALCI UM, SERUM OR PLASM A crea 1.0 mg/dL 0.6-1. 3 Not Available [address], [address], 04/25/2021 20:59:40 04/24/20 21 04/24/2021 BMP + IONIZ ED CALCI UM, SERUM OR PLASM A Na 134 mmol/ L 138-14 6 Not Available [address], [address], 04/25/2021 20:59:40 04/24/20 21 04/24/2021 BMP + IONIZ ED CALCI UM, SERUM OR PLASM A K 4.2 mmol/ L 3.5-4. 9 Not Available [address], [address], 04/25/2021 20:59:40 04/24/20 21 04/24/2021 BMP + IONIZ ED CALCI UM, SERUM OR PLASM A cL 96 mmol/ L 98-109 Not Available [address], [address], 04/25/2021 20:59:40 04/24/20 21 04/24/2021 BMP + IONIZ ED CALCI UM, SERUM OR PLASM A TCO2 26 mmol/ L 24-29 Not Available [address], [address], 04/25/2021 20:59:40 04/24/20 21 04/24/2021 BMP + IONIZ ED CALCI UM, SERUM OR PLASM A angap 18 mmol/ L 10-20 Not Available [address], [address], 04/25/2021 20:59:40 04/24/20 21 04/24/2021 BMP + IONIZ ED CALCI UM, SERUM OR PLASM A ica 1.15 mmol/ L 1.12-1 .32 Not Available [facility] [address] [place], [address], 04/25/2021 20:59:40 04/24/20 21 04/24/2021 BMP + IONIZ ED CALCI UM, SERUM OR PLASM A HCT 35 %pcv 38-51 Not Available [facility] [address] [place], [address], 04/25/2021 20:59:40 04/24/20 21 04/24/2021 BMP + IONIZ ED CALCI UM, SERUM OR PLASM A Hb 11.9 g/dL 12-17 Not Available [facility] [address] [place], [address], 04/25/2021 20:59:40 08/18/19 20 08/18/2019 XR, chest , 2 view XRAY CHEST 2 VIEW FINDIN GS: The heart is normal in size and config uratio n. The medias tinum is normal withou t adenop athy. The lung aranda are clear withou t mass, infilt rate, conges tion, or effusi on. Bony struct ures are unrema rkable withou t acute fractu re or destru ctive lesion s. CONCLU PAL: No acute cardio pulmon brayden diseas e seen. ELECTR ONICAL LY SIGNED BY NAVID HAWKINS M.D. 020 10:20: 20 AM EST. XRAY CHEST 2 VIEW Result s: The heart is normal in size and config uratio n. The medias tinum is normal withou t adenop athy. The lung aranda are clear withou t mass, infilt rate, conges tion, or effusi on. Bony struct ures are unrema rkable withou t acute fractu re or destru ctive lesion s. Conclu pal: No acute cardio pulmon brayden diseas e seen. Electr onical ly signed by NAVID HAWKINS M.D. 020 10:20: 20 AM EST. [email or web address] [facility] ([facility]) [address], [place], [address], 08/18/2019 15:46:56 04/24/20 wound care* No observ ation record ed. [email or web address] Not Available 2020 14:52:25 04/26/20 XR, chest , 2 view No observ ation record ed. [place] [id number] [facility] ([email or web address]) [address] [place], [address], 04/28/2021 08:58:02 04/30/20 US, duple x, venou s, lower extre mity No observ ation record ed. [place] [address] [facility] ([email or web address]) [address] [place], [address], 05/01/2021 15:37:59 Result Notes None recorded. Procedures Surgical History Date Name Laterality Status Provider Name and Address Organization Details Recorded Time 04/24/20 Venipuncture - DH completed CHANCE PEACOCK NP [address] [place] [address], [phone], [place] [facility] 04/27/2021 08:58:29 Imaging Results Imaging Date Name Status LastModified by [facility] Details LastModified Time 08/18/2019 XR, chest, 2 view [facility] [address] [place], [address], 08/18/2019 15:46:56 04/24/2021 wound care* completed [email or web address] Information n ot available 04/24/2021 14:52:25 04/26/2021 XR, chest, 2 view completed [place] [address] [facility] ([facility] [facility]) [address] [place], [address], 04/28/2021 08:58:02 04/30/2021 US, duplex, venous, lower extremity completed [place] [address] [facility] ([facility]) [address] [place], [address], 05/01/2021 15:37:59 Procedure Notes None recorded. Medical Equipment None Reported. Allergies Allergen ID Allergen Name Allergen Category Reaction Reaction Severity Criticality Documentation Date Start Date Code Code System Note Provider Name and Address Organization Details Recorded Time 83225 oxycodone medicatio n Not available Not available Not available 08/17/2019 7804 RxNorm AMY MALDONADOHARPREET SLAUGHTER [address], [place], [address], [place] [facility] 0 15:26:39 [address]259 morphine medicatio n Not available Not available Not available 08/17/2019 7052 RxNorm AMY MALDONADOHARPREET SLAUGHTER [address], [place], [address], [place] [facility] 0 15:26:46 [address]8780 amitripty line medicatio n Not available Not available Not available 08/17/2019 704 RxNorm AMY MALDONADOHARPREET SLAUGHTER [address], [place], [address], [place] [facility] 0 15:26:57 [address]3573 Phenergan medicatio n Not available Not available Not available 08/17/2019 29078 8 RxNorm AMY MALDONADOHARPREET SLAUGHTER [address], [place], [address], [place] [facility] 0 15:27:24 [address]4680 Demerol medicatio n Not available Not available Not available 08/17/2019 60520 1 RxNorm AMY MALDONADOSUKHJINDER PA [address], [place], [address], [place] [facility] 0 15:27:30 Medications Name Sig Start Date Stop Date Status Note LastModified by Organization Details LastModified Time celecoxib 200 mg capsule 04/24 completed Not Available Not Available Not Available furosemid e 40 mg tablet TAKE 1 TABLET BY MOUTH DAILY active Not Available Not Available No t Available clotrimaz ole 10 mg rosalio active Not Available Not Available Not Available levothyro xine 175 mcg tablet 08/17 completed Not Available Not Available Not Available bupropion HCl SR 150 mg tablet,12 hr sustained -release TAKE 1 TABLET BY MOUTH TWICE DAILY FOR 7 DAYS active Not Available Not Available No t Available levothyro xine 137 mcg tablet 08/17 completed Not Available Not Available Not Available nystatin 100,000 unit/mL oral suspensio n 04/24 completed Not Available Not Available Not Available tizanidin e 2 mg tablet active Not Available Not Available Not Available trazodone 50 mg tablet active Not Available Not Available Not Available azithromy raj 250 mg tablet 500 mg PO administ ered on scene. Time administ ered: 1537 04/24 completed Please be sure to adjust MG order as applicab le to clinical situatio n Not Available Not Available Not Available tizanidin e 4 mg tablet active Not Available Not Available Not Available hydrocodo ne 5 mg-acetam inophen 325 mg tablet TK 1/2 T PO BID PRN 04/24 completed Not Available Not Available Not Available Nystop 100,000 unit/gram topical powder 04/24 completed Not Available Not Available Not Available fluconazo le 200 mg tablet TAKE 1 TABLET BY MOUTH EVERY THURSDAY active Not Available Not Available No t Available FreeStyle Lancets 28 gauge USE TO CHECK BLOOD SUGAR TWICE DAILY DIRECTED active Not Available Not Available No t Available ondansetr on HCl 4 mg tablet TAKE 1 TABLET BY MOUTH EVERY 8 HOURS NEEDED FOR NAUSEA active Not Available Not Available No t Available prednison e 20 mg tablet 04/24 completed Not Available Not Available Not Available alendrona te 70 mg tablet active Not Available Not Available Not Available prednison e 5 mg tablet TAKE 4 TABLETS BY MOUTH DAILY active Not Available Not Available No t Available triamcino lone acetonide 0.025 % lotion 08/17 completed Not Available Not Available Not Available azathiopr ine 50 mg tablet active Not Available Not Available Not Available acetamino phen 300 mg-codein e 30 mg tablet 08/17 completed Not Available Not Available Not Available doxepin 10 mg capsule 04/24 completed Not Available Not Available Not Available sulfameth oxazole 800 mg-trimet hoprim 160 mg tablet active Not Available Not Available Not Available omeprazol e 40 mg capsule,d elayed release TAKE 1 CAPSULE BY MOUTH TWICE DAILY active Not Available Not Available No t Available tramadol 50 mg tablet 08/17 completed Not Available Not Available Not Available spironola ctone 25 mg tablet 04/24 completed Not Available Not Available Not Available hydrocort isone 2.5 % topical cream with perineal applicato r APPLY RECTALLY TO THE AFFECTED AREA TWICE DAILY active Not Available Not Available No t Available Tessalon Perles 100 mg capsule Take 1 capsule 3 times a day by oral route as needed for 7 days. 04/24 completed Not Available Not Available Not Available hydromorp kacey 2 mg tablet TK 1 T PO Q 6 H PRF PAIN 04/24 completed Not Available Not Available Not Available triamcino lone acetonide 0.025 % topical cream APPLY TOPICALL Y TO THE AFFECTED AREA THREE TIMES DAILY active Not Available Not Available No t Available methotrex ate sodium 2.5 mg tablet active Not Available Not Available Not Available amlodipin e 10 mg tablet active Not Available Not Available Not Available pantopraz ole 40 mg tablet,de layed release active Not Available Not Available Not Available levothyro xine 125 mcg tablet 08/17 completed Not Available Not Available Not Available clotrimaz ole-betam ethasone 1 %-0.05 % topical cream APPLY EXTERNAL LY TO THE AFFECTED AREA TWICE DAILY TO LEGS. NOT TO EXCEED 45 GM PER WEEK active Not Available Not Available No t Available lisinopri l 10 mg tablet TAKE 1 TABLET BY MOUTH DAILY 04/24 completed Not Available Not Available Not Available levothyro xine 150 mcg tablet 08/17 completed Not Available Not Available Not Available gabapenti n 300 mg capsule TAKE 3 CAPSULES BY MOUTH EVERY NIGHT AT BEDTIME active Not Available Not Available No t Available levothyro xine 200 mcg tablet active Not Available Not Available Not Available lisinopri l 5 mg tablet TAKE 1 TABLET BY MOUTH DAILY 04/24 completed Not Available Not Available Not Available triamcino lone acetonide 0.1 % lotion APPLY TOPICALL Y TO THE AFFECTED AREA TWICE DAILY TO RASH ON LEGS active Not Available Not Available No t Available albuterol sulfate HFA 90 mcg/actua tion aerosol inhaler INHALE 2 PUFFS BY MOUTH EVERY 4 HOURS active Not Available Not Available No t Available folic acid 800 mcg tablet TAKE 1 TABLET BY MOUTH DAILY AT BEDTIME active Not Available Not Available No t Available enoxapari n 80 mg/0.8 mL subcutane ous syringe 08/17 completed Not Available Not Available Not Available ciclopiro x 0.77 % topical cream APPLY EXTERNAL LY TO THE AFFECTED AREA TWICE DAILY active Not Available Not Available No t Available Restasis 0.05 % eye drops in a dropperet te active Not Available Not Available Not Available escitalop ruben 5 mg tablet active Not Available Not Available Not Available metoprolo l tartrate 25 mg tablet TAKE 1/2 TABLET BY MOUTH TWICE DAILY METOPROL OL TARTRATE active Not Available Not Available No t Available tizanidin e 2 mg capsule TK 1 C PO BID PRF MUSCLE SPASM active Not Available Not Available No t Available FreeStyle Lite Meter kit PATIENT TO CHECK BLOOD SUGAR BID UTD active Not Available Not Available No t Available FreeStyle Lite Strips TEST BLOOD SUGAR TWICE DAILY active Not Available Not Available No t Available Slow Fe 142 mg (45 mg iron) tablet,ex tended release TK 1 T PO D active Not Available Not Available No t Available Colcrys 0.6 mg tablet 04/24 completed Not Available Not Available Not Available Silenor 3 mg tablet active Not Available Not Available No t Available Eliquis 5 mg tablet TAKE 1 TABLET BY MOUTH TWICE DAILY active Not Available Not Available No t Available Hysingla ER 20 mg tablet, crush resistant , extended release 04/24 completed Not Available Not Available Not Available Vitals Date Recorded Respiratory rate Oxygen saturation Oxygen saturation in Arterial blood by Pulse oximetry Heart rate Body temperature Systolic blood pressure Diastolic blood pressure Provider Name and Address Organization Details Last Updated DateTime 0 15 /min 98 % 98 % 78 /min 98.7 [degF] 132 mm[Hg] 74 mm[Hg] Not Available [facility] 0 15:31:57 Date Recorded Respiratory rate Oxygen saturation Oxygen saturation in Arterial blood by Pulse oximetry Heart rate Body temperature Systolic blood pressure Diastolic blood pressure Provider Name and Address Organization Details Last Updated DateTime 1 22 /min 95 % 95 % 69 /min 98.8 [degF] 118 mm[Hg] 70 mm[Hg] Not Available [facility] 1 14:44:35 Social History Question Answer Notes LastModified by Organizat ion Details LastModified Time Tobacco Smoking Status Former Smoker HARPREET EVANS [address], [place], [address], [place] [facility] 08/17/2019 15:29:56 Do You Have An Advance Directive? No Information not available 08/17/2019 What Is Your Code Status? Full Code Information not available 08/17/2019 Within The Past 12 Months, Has It Happened That The Food You Bought Just Didn't Last And You Didn't Have Money To Get More. No Information not available 08/17/2019 Within The Past 12 Months, Have You Worried That Your Food Would Run Out Before You Got Money To Buy More. No Information not available 08/17/2019 Fall Risk: Do You Feel Unsteady When Standing Or Walking? Yes Information not available 08/17/2019 We Know That How And When People Interact With Friends And Family Can Be Very Different From Person To Person. How Often Do You Have The Opportunity To See Or Talk To People That You Care About And Feel Close To? (Ex: Talking To Friends On The Phone Or Visiting Friends Or Family Or Going To Quaker Or Club Meetings) Choose Not To Answer This Question [email or web address] Information not available 08/17/2019 We Know From Many Of Our Patients That Covering All Of Their Costs Can Be Difficult At Times. This Can Cause Stress And Impact Health. In The Past Year, Have You Been Unable To Get Any Of The Following When It Was Really Needed? No Information not available 08/17/2019 What Is Your Housing Situation Today? I Have Housing Information not available 08/17/2019 Would You Like Help Connecting To Resources? None Information not available 08/17/2019 Marital Status Informatio n not available 08/17/2019 Sex: Unknown Functional Status None recorded. Mental Status None recorded. Family History Nothing Reported Notes:patient can't recall Medical History Condition Response Diabetes Y Coronary Artery Disease N High Cholesterol Y Cancer N Pulmonary Embolism N Stroke N Hypertension Y Depression Y COPD N Asthma Y Kidney Disease N Gynecological HistoryNo gynecological history recorded. Obstetrics History GPAL:G 0 P 0 0 0 0 Past Encounters Encounter ID Performer Location Encounter Start Date Encounter Closed Date Diagnosis/Indication Diagnosis SNOMED-CT Code Diagnosis ICD10 Code Diagnosis Note [id number] [facility] [address] [facility] [place] [address] 08/17/2019 15:23:04 08/18/2019 17:16:39 Cough 23830020 R05 Bronchopneumonia 6838050 07 J18.0 [id number] Thanh Tapia MD [facility] [address] [facility] [place] [address] 04/24/2021 14:37:31 04/30/2021 14:55:23 Respiratory crackles 33069365 R09.89 Unilateral leg edema 162 154621 R60.0 Chronic hyponatremia 503 63773 E87.1 Deep venou s thrombosis of lower extremity 851244865 I82.409 known DVT right gastrocnem ius vein measured 30 cm on last US in February, Health Concerns Section Related Observation LastModified by Organization Detai ls LastModified Time None Recorded Concern Status LastModified by Organization Details LastModified Time None Recorded Advance Directives Directive N: Payers Encounter Date Sequence Insurance Name Policy Number Policy [place] Covered Member ID [place] Member ID Guarantor Name 08/17/2019 1 MEDICARE [place]: [facility] Griselda Alcaraz [id number] Griselda Alcaraz 08/17/2019 2 [facility]: (INDEMNITY) Griselda Alcaraz [id number] Griselda Alcaraz 04/24/2021 1 MEDICARE B-[place]: [facility] Griselda Alcaraz [id number] Griselda Alcaraz 04/24/2021 2 [facility]: (INDEMNITY) Griselda Alcaraz [id number] Griselda Alcaraz Notes Date Note Type Note Provider Name and Address Organization Details Recorded Time 08/17/2019 text/html Mrs. Lissa ramirez s a 79 yo female new to and this provider who presents with complain of dry persistent cough. patient reports that her cough started about 2 weeks ago; she reports that cough is dry and states her lungs are hurting her when she coughs; reports chills but did not check her temp. Patient has not been evaluated for this cough and hasn't been taking any medications for it. HARPREET EVANS [address], [place], [address], [place] [facility] 08/17/2019 16:06:03 04/24/2021 text/html 81 yo female who is known to but not new to this provider. Her PMHx includes Asthma, hepatic cyst, diverticulitis, hypothyroidism, depression, anxiety, mesenteric panniculitis, diabetes, HTN, pancreatitis, osteoporosis, Jayy's esophagitis. She states she has a blood clot in her right lower leg and in her chest. She endorses noticing an area of discoloration on the back of her right lower leg that is tender to the touch and occasionally is itchy; noticed it about one and a half weeks ago. She states she has to be careful with her food, making sure she chews it well and sometimes she coughs with a drink. She endorses having history of low sodium and RLE > than LLE. She denies any fever, chills, headache, dizziness, weakness, new cough, endorses post-nasal drip, denies sore throat, chest pain, palpitations, abdominal pain, nausea, vomiting or diarrhea. CHANCE PEACOCK NP [address], [place], [address], [place] [facility] 04/27/2021 08:58:36 OBGyn Episode No OBEpisode recorded.
[2024-09-26 06:51] LABS: Basophils Absolute Auto 0.1 X10*3/uL (0.0-0.2); Basophils Percent Auto 0.5 % (0-2); Eosinophils Absolute Auto 0.2 X10*3/uL (0.0-0.4); Eosinophils Percent Auto 2.2 % (0-4); Hematocrit 34.3 % (37.0-47.0); Hemoglobin 10.9 g/dl (12.0-16.0); Imm Gran Abs Auto 0.08 X10*3/uL (0.00-0.03); Imm Gran Pct Auto 0.8 % (0.0-0.4); Lymphocytes Absolute Auto 2.1 X10*3/uL (1.2-4.9); Lymphocytes Percent Auto 21.1 % (20-40); Mean Corpuscular HGB Conc 31.8 g/dl (31.0-35.0); Mean Corpuscular Hemoglobin 29.9 pg (27.0-33.0); Mean Platelet Volume 10.1 fL (9.4-12.3); Monocytes Percent Auto 10.3 % (2-11); Neutrophils Absolute Auto 6.4 x10*3/uL (2.0-8.3); Neutrophils Percent Auto 65.1 % (45-73); Platelet Count 220 X10*3/uL (160-400); Red Blood Count 3.65 X10*6/uL (4.20-5.50); Red Cell Distribution Width 16.3 % (11.0-16.0); White Blood Count 9.9 X10*3/uL (4.8-10.8)
[2024-09-26 07:34] LABS: Anion Gap 14 (12-20); Blood Urea Nitrogen 22 mg/dL (9-16); Carbon Dioxide 26 mmol/L (22-29); Chloride 104 mmol/L (96-108); Estimated Glomerular Filt Rate 51; Potassium 3.9 mmol/L (3.3-5.1); Sodium 140 mmol/L (135-145)
[2024-09-26 07:35] LABS: Calcium 9.3 mg/dL (8.4-10.2); Glucose Random 105 mg/dL (60-115)
== END 2024-09-26 06:15 | disposition home or self-care (01) ==
LOC: HO.MMNH3L 06:14
PROVIDERS: Visit Provider Family Medicine
DX: I10 Essential (primary) hypertension (principal)
CPT/HCPCS: 36415; 80048; 85025

== ENCOUNTER 2024-10-06 05:37 | Outpatient (REF) | payer MEDICARE, SELFPAY ==
[2024-10-06 05:43] LABS: MANUAL DIFF FLAG NO
[2024-10-06 05:56] LABS: Basophils Absolute Auto 0.1 X10*3/uL (0.0-0.2); Basophils Percent Auto 0.5 % (0-2); Eosinophils Absolute Auto 0.2 X10*3/uL (0.0-0.4); Eosinophils Percent Auto 2.4 % (0-4); Hematocrit 32.5 % (37.0-47.0); Hemoglobin 10.8 g/dl (12.0-16.0); Imm Gran Abs Auto 0.04 X10*3/uL (0.00-0.03); Imm Gran Pct Auto 0.4 % (0.0-0.4); Lymphocytes Percent Auto 21.8 % (20-40); Mean Corpuscular HGB Conc 33.2 g/dl (31.0-35.0); Mean Corpuscular Hemoglobin 30.6 pg (27.0-33.0); Mean Corpuscular Volume 92.1 fL (80.0-98.0); Mean Platelet Volume 9.6 fL (9.4-12.3); Monocytes Absolute Auto 1.1 X10*3/uL (0.1-1.2); Neutrophils Absolute Auto 5.8 x10*3/uL (2.0-8.3); Neutrophils Percent Auto 62.9 % (45-73); Platelet Count 229 X10*3/uL (160-400); Red Blood Count 3.53 X10*6/uL (4.20-5.50); Red Cell Distribution Width 15.7 % (11.0-16.0); White Blood Count 9.2 X10*3/uL (4.8-10.8)
== END 2024-10-06 05:38 | disposition home or self-care (01) ==
LOC: HO.MMNH3L 05:37
PROVIDERS: Visit Provider Family Medicine
DX: L03.90 Cellulitis, unspecified (principal)
CPT/HCPCS: 36415; 82306; 84443; 85025

== ENCOUNTER 2024-10-31 05:49 | Outpatient (REF) | payer MEDICARE, SELFPAY ==
[2024-10-31 05:41] LABS: MANUAL DIFF FLAG NO
--- OUTSIDE RECORDS SUMMARY | 2024-10-31 06:04 | XMS_ITS | Data Portability ---
Author Organization [place] [facility] Address [address] [place] [address] Care Team Providers Care Facilities Operations Technician Name Role Phone ARIANNA SOW Primary Care Provider [phone] [facility] OTHER Assessment Encounter Date Assessment Date Assessment [...] I have accessed patient records on the [employer]. This information was pertinent [...] after care of this patient [facility]. Overview/History : 81 yo [...] pertinent in my medical decision making today. [email or web address] Not available 04/24/2021 16:06:59 Plan of Treatment Reminders Order Date Submit Date Provider Last Modified By Organization Details Last Modified Time Details Appointments None recorded. Lab BMP + ionized calcium, serum or plasma 2020 [facility], [address], [place], [address], 14:20:55 BMP + ionized calcium, serum or plasma 2020 MEGAN [facility] (Centralized Electronic Ordering - All Locations), Patient Can Go To The Location Of Their Choice, [address] 20:59:40 Referral None recorded. Procedures None recorded. Surgeries None recorded. 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 Reason for portabilit y is immunocomp romised. 2020 [facility] ([facility] [address], [place], [address], 19:01:25 XR, chest, 2 view - right upper lobe (anterior) crackles on auscultati on 2020 [facility] ([facility] [address], [place], [address], 1 11:03:08 XR, chest, 2 view - REASON FOR PORTABILIT Y: FRAIL/FALL RISK 2019 020 [facility] ([facility]), [address], [place], [address], 0 10:28:17 Medication Orders azithromyc in 250 mg tablet 2019 020 [email or web address] [facility] #[id number], [address], [place], [id number], 1 14:39:29 azithromyc in 250 mg tablet 2019 020 [email or web address] [facility] #[id number], [address], [place], [id number], 1 14:39:29 ProAir HFA 90 mcg/actuat ion aerosol inhaler 2019 020 INTERFACE [facility] #[id number], [address], [place], [id number], 0 15:38:53 Tessalon Perles 100 mg capsule 2019 020 [email or web address] [facility] #96125, [address], [place], [id number], 1 14:43:23 Patient TargetsNo targets recorded. Patient Instructions Encounter Date Encounter Id Patient Instructions Last Modified By Organization Details Last Modified Time 08/17/2019 [id number] Acute Bronchitis Instructions BASIC INFORMATION Acute bronchitis [...] Tylenol can injure your liver. Cough medicine: Wgxd-hka-smbyjaj (OTC) medicine helps loosen mucus in your [...] also ask your pharmacist for a good eaqb-rmb-hbusnnb probiotic to take while you are on [...] to smoke around you. Please call the [place] [facility] Line at to help in smoking [...] condition between 8am-10pm, please call [facility] at [phone] to help navigate your care. [email or web address] Not available 08/17/2019 15:38:34 04/24/2021 [id number] Thank you for yo ur visit with [facility] today. We cannot always find the exact [...] condition between 8am-10pm, please call [facility] at [phone] to help navigate your care. [email or web address] Not available 04/24/2021 15:28:43 Reason for Referral None Reported. Results Created Date Observation Date Name Description Value Unit Range Abnormal Flag Note LastModifiedBy Organization Detail LastModifiedTime 04/24/20 21 04/24/2021 BMP + IONIZ ED CALCI UM, SERUM OR PLASM A glu 155 mg/dL 70-105 Not Available [facility] [address] [place], [address], 04/25/2021 20:59:40 04/24/20 21 04/24/2021 BMP + IONIZ ED CALCI UM, SERUM OR PLASM A BUN 17 mg/dL 8-26 Not Available [facility] [address] [place], [address], 04/25/2021 20:59:40 04/24/20 21 04/24/2021 BMP + IONIZ ED CALCI UM, SERUM OR PLASM A crea 1.0 mg/dL 0.6-1. 3 Not Available [address], [address], 04/25/2021 20:59:40 04/24/20 21 04/24/2021 BMP + IONIZ ED CALCI UM, SERUM OR PLASM A Na 134 mmol/ L 138-14 6 Not Available [address], [address], 04/25/2021 20:59:40 04/24/20 21 04/24/2021 BMP + IONIZ ED CALCI UM, SERUM OR PLASM A K 4.2 mmol/ L 3.5-4. 9 Not Available [address], [address], 04/25/2021 20:59:40 04/24/20 21 04/24/2021 BMP + IONIZ ED CALCI UM, SERUM OR PLASM A cL 96 mmol/ L 98-109 Not Available [address], [address], 04/25/2021 20:59:40 04/24/20 21 04/24/2021 BMP + IONIZ ED CALCI UM, SERUM OR PLASM A TCO2 26 mmol/ L 24-29 Not Available [address], [address], 04/25/2021 20:59:40 04/24/20 21 04/24/2021 BMP + IONIZ ED CALCI UM, SERUM OR PLASM A angap 18 mmol/ L 10-20 Not Available [address], [address], 04/25/2021 20:59:40 04/24/20 21 04/24/2021 BMP + IONIZ ED CALCI UM, SERUM OR PLASM A ica 1.15 mmol/ L 1.12-1 .32 Not Available [facility] [address] [place], [address], 04/25/2021 20:59:40 04/24/20 21 04/24/2021 BMP + IONIZ ED CALCI UM, SERUM OR PLASM A HCT 35 %pcv 38-51 Not Available [facility] [address] [place], [address], 04/25/2021 20:59:40 04/24/20 21 04/24/2021 BMP + IONIZ ED CALCI UM, SERUM OR PLASM A Hb 11.9 g/dL 12-17 Not Available [facility] [address] [place], [address], 04/25/2021 20:59:40 08/18/19 20 08/18/2019 XR, chest [...] nyuzych [facility] ([facility]) [address], [place], [address], 08/18/2019 15:46:56 04/24/20 wound care* No observ ation record ed. [email or web address] Not Available 2020 14:52:25 04/26/20 XR, chest , 2 view No observ ation record ed. [place] [address] [facility] ([facility]) [address] [place], [address], 04/28/2021 08:58:02 04/30/20 US, duple x, venou s, lower extre mity No observ ation record ed. [place] [address] [facility] ([facility]) [address] [place], [address], 05/01/2021 15:37:59 Result Notes None recorded. Procedures Surgical History Date Name Laterality Status Provider Name and Address Organization Details Recorded Time 04/24/20 Venipuncture - DH completed CHANCE PEACOCK NP [address] [place] [address], [address], [place] [facility] 04/27/2021 08:58:29 Imaging Results Imaging Date Name Status LastModified by [facility] Details LastModified Time 08/18/2019 XR, chest, 2 view [facility] [address] [place], [address], 08/18/2019 15:46:56 04/24/2021 wound care* completed [email or web address] Information n ot available 04/24/2021 14:52:25 04/26/2021 XR, chest, 2 view completed [place] [address] [facility] ([facility]) [address] [place], [address], 04/28/2021 08:58:02 04/30/2021 US, duplex, venous, lower extremity completed [place] [address] [facility] ([facility]) [address] [place], [address], 05/01/2021 15:37:59 Procedure Notes None recorded. Medical Equipment None Reported. Allergies Allergen ID Allergen Name Allergen Category Reaction Reaction Severity Criticality Documentation Date Start Date Code Code System Note Provider Name and Address Organization Details Recorded Time 03115 oxycodone medicatio n Not available Not available Not available 08/17/2019 7804 RxNorm AMY MALDONADOHARPREET SLAUGHTER [address], [place], [address], [place] [facility] 0 15:26:39 81700 morphine medicatio n Not available Not available Not available 08/17/2019 7052 RxNorm AMY MALDONADOHARPREET SLAUGHTER [address], [place], [address], [place] [facility] 0 15:26:46 72350 amitripty line medicatio n Not available Not available Not available 08/17/2019 704 RxNorm AMY MALDONADOHARPREET SLAUGHTER [address], [place], [address], [place] [facility] 0 15:26:57 64341 Phenergan medicatio n Not available Not available Not available 08/17/2019 49369 8 RxNorm AMY MALDONADOHARPREET SLAUGHTER [address], [place], [address], [place] [facility] 0 15:27:24 80803 Demerol medicatio n Not available Not available Not available 08/17/2019 34499 1 RxNorm AMY MALDONADOSUKHJINDER PA [address], [place], [address], [place] [facility] 0 [...] [degF] 132 mm[Hg] 74 mm[Hg] Not Available [facility] 0 15:31:57 Date Recorded Respiratory rate Oxygen saturation Oxygen saturation in Arterial blood by Pulse oximetry Heart rate Body temperature Systolic blood pressure Diastolic blood pressure Provider Name and Address Organization Details Last Updated DateTime 1 22 /min 95 % 95 % 69 /min 98.8 [degF] 118 mm[Hg] 70 mm[Hg] Not Available [facility] 1 14:44:35 Social History Question Answer Notes LastModified by Organizat ion Details LastModified Time Tobacco Smoking Status Former Smoker HARPREET EVANS [address], [place], [address], [place] [facility] 08/17/2019 15:29:56 Do You Have An Advance [...] Visiting Friends Or Family Or Going To Voodoo Or Club Meetings) Choose Not To Answer This Question nyuzInterventional Spine Information not available 08/17/2019 We Know From [...] Notes:patient can't recall Medical History Condition Response Coronary Artery Disease N COPD N Depression Y Diabetes Y Cancer N Stroke N Asthma Y High Cholesterol Y Pulmonary Embolism N Hypertension Y Kidney Disease N Gynecological HistoryNo gynecological history recorded. Obstetrics History GPAL:G 0 P 0 0 0 0 Past Encounters Encounter ID Performer Location Encounter Start Date Encounter Closed Date Diagnosis/Indication Diagnosis SNOMED-CT Code Diagnosis ICD10 Code Diagnosis Note [id number] [facility] [address] [facility] [place] [address] 08/17/2019 15:23:04 08/18/2019 17:16:39 Cough 82297953 R05 Bronchopneumonia 9072653 07 J18.0 [id number] Thanh Tapia MD [facility] [address] [place] [place] [address] 04/24/2021 14:37:31 04/30/2021 14:55:23 Respiratory crackles 40155565 R09.89 Unilateral leg edema 162 964905 R60.0 Chronic hyponatremia 503 34951 E87.1 Deep venou s thrombosis of lower extremity 572344163 I82.409 known DVT right gastrocnem ius vein [...] Member ID Guarantor Name 08/17/2019 1 MEDICARE B-[place]: [facility] Griselda Alcaraz [id number] 7 Griselda Alcaraz 08/17/2019 2 [facility]: (INDEMNITY) Griselda Alcaraz [id number] Griselda Alcaraz 04/24/2021 1 MEDICARE B-[place]: [facility] Griselda Alcaraz [id number] Griselda Alcaraz 04/24/2021 2 [facility]: (INDEMNITY) Griselda Alcaraz [id number] Griselda Alcaraz Notes Date Note Type [...] for it. HARPREET EVANS [address], [place], [address], [place] [facility] 08/17/2019 16:06:03 04/24/2021 text/html [...] diarrhea. CHANCE PEACOCK NP [address], [place], [address], [place] [facility] 04/27/2021 08:58:36 OBGyn Episode No OBEpisode recorded.
--- OUTSIDE RECORDS SUMMARY | 2024-10-31 06:04 | XMS_ITS | Data Portability ---
Author Organization [place] [facility], Main Office Address [address] [facility], [address] [place] [address] Care Team Providers Care Garnett Machine Operator Name Role Phone KAREEM HAYNES 3RD FLOOR OTHER [phone] Assessment Encounter Date Assessment Date Assessment LastModified [...] Address Organization Details Recorded Time Severe pain [id number] Active 2021 back pain BRYANNA URBANO, MIKIE [address] [facility], [address], [place], [address], [facility] 2 13:15:21 Adult failure to thrive syndrome 990145073 Active 2021 BRYANNA URBANO NP [address], [address], [place], [address], [facility] 2 13:15:35 Fall Active 2021 BRYANNA URBANO NP [address], [address], [place], [address], [facility] 2 13:15:44 Gastroes ophageal reflux disease without esophagi tis 990387051 Active 2021 BRYANNA URBANO NP [address], [address], [place], [address], [facility] 2 13:16:01 Osteoart hritis 187415587 Active 2021 BRYANNA URBANO NP [address] [facility], [address], [place], [address], [facility] 2 13:16:10 Mixed anxiety and depressi ve disorder 632710766 Active 2021 BRYANNA URBANO NP [address] [facility], [address], [place], [address], [facility] 3 10:40:32 Hypothyr oidism 72924342 Active 2021 BRYANNA URBANO NP [address] [facility], [address], [place], [address], [facility] 2 13:16:28 Osteopor osis 45231959 Active 2021 BRYANNA URBANO NP [address], [address], [place], [address], [facility] 2 13:17:10 Atrial fibrilla tion 30301146 Active 2021 BRYANNA URBANO, MIKIE [address], [address], [place], [address], [facility] 2 14:21:30 Hyperlip idemia 88978473 Active 2021 BRYANNA URBANO, BLOW MOLD MACHINE OPERATOR [address] [facility], [address], [place], [address], [facility] 2 14:21:52 Spinal stenosis of lumbar region 51763478 Active 2021 Ana Damon MD [address] [facility], [address], [place], [address], [facility] 2 19:13:30 Edema 172821846 Active 2021 BRYANNA URBANO, BLOW MOLD MACHINE OPERATOR [address], [address], [place], [address], [facility] 2 13:22:11 Hypokale doretha 87161975 Active 2021 Ana Damon MD [address] [facility], [address], [place], [address], [facility] 2 23:44:02 Pancreat itis 97730202 Active 2021 BRYANNA URBANO, BLOW MOLD MACHINE OPERATOR [address] [facility], [address], [place], [address], [facility] 2 14:58:02 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 403249684 Active 2021 Ana Damon MD [address], [place], [address], [facility] 2 14:42:49 Contusio n 452590988 Active 2021 right buttock BRYANNA YOLIE, BLOW MOLD MACHINE OPERATOR [address] [facility], [address], [place], [address], [facility] 3 12:37:52 COVID-19 771160616 Active 2021 BRYANNA YOLIE, BLOW MOLD MACHINE OPERATOR [address] [facility], [address], [place], [address], [facility] 2 10:44:44 Dislocat ion of shoulder joint 395233457 Active 2022 Margarette Awad NP [address] [facility], [address], [place], [address], [facility] 3 11:28:04 Chronic neck pain 51041568425 07 Active 2022 Ana Damon MD [address], [address], [place], [address], [facility] 3 21:36:27 Nausea 386931368 Active 2022 Ana Damon MD [address], [address], [place], [address], [facility] 3 21:36:31 Type 2 diabetes mellitus 88816617 Active 2022 Ana Damon MD [address], [address], [place], [address], [facility] 3 20:16:36 Contusio n of face 825584609 Active 2022 BRYANNA URBANO NP [address], [address], [place], [address], [facility] 3 12:37:45 Urinary tract infectio us disease 99770024 Active 2023 NELDA MANSFIELD [address], [address], [place], [address], [facility] 4 14:59:19 Dyspnea 164387850 Active 2023 NELDA MANSFIELD [address], [address], [place], [address], [facility] 4 22:03:33 Neuropat hy 437882296 Active 2023 NELDA MANSFIELD [address], [address], [place], [address], [facility] 4 22:17:58 Constipa tion 05608292 Active 2023 NELDA MANSFIELD [address], [address], [place], [address], [facility] 4 22:22:39 Chronic pain 43972712 Active 2023 Ana Damon MD [address], [address], [place], [address], [place] [facility] 4 10:49:48 Cellulit is 991020808 Active 2023 NELDA MANSFIELD [address] [facility], [address], [place], [address], [facility] [employer] [facility] 4 09:09:15 Manav contreras [id number] Completed 202306/06/2024 on predniso ne 10 mg daily NELDA MANSFIELD [address] [place] [address], [address], [place], [address], [facility] [employer] [facility] 4 15:48:25 Venous insuffic iency of leg 209204604 Active 2023 NELDA MANSFIELD [address] [place] [address], [address], [place], [address], [facility] [employer] [facility] 4 02:16:11 Chronic heart failure 41810681 Active 2023 NELDA MANSFIELD [address] [place] [address], [address], [place], [address], [facility] [employer] [facility] 4 02:24:16 Problem Notes None recorded. Medical Equipment None Reported. Allergies Allergen ID Allergen Name Allergen Category Reaction Reaction Severity Criticality Documentation Date Start Date Code Code System Note Provider Name and Address Organization Details Recorded Time 56384 amitripty line medicatio n Not available Not available Not available 09/25/2021 704 RxNorm Not Available Not Available Not Available 28535 morphine medicatio n Not available Not available Not available 09/25/2021 7052 RxNorm Not Available Not Available Not Available 44220 oxycodone medicatio n Not available Not available Not available 09/25/2021 7804 RxNorm Not Available Not Available Not Available 41908 Demerol medicatio n Not available Not available Not available 09/25/2021 38338 1 RxNorm Not Available Not Available Not Available 35034 Phenergan medicatio n Not available Not available Not available 09/25/2021 73427 8 RxNorm Not Available Not Available Not Available 25797 lactose food,medi cation Not available Not available [...] DateTime 07/07/2024 162.56 cm NELDA MANSFIELD [address] [facility], [address], [place], [address], [facility] 07/07/2024 08:58:12 Date Recorded Body height Provider Name an d Address Organization Details Last Updated DateTime 07/11/2024 162.56 cm NELDA MANSFIELD [address] [place] [address], [address], [place], [address], [facility] 07/11/2024 14:23:34 Date Recorded Body height Heart rate Oxygen saturation Oxygen saturation in Arterial blood by Pulse oximetry Provider Name and Address Organization Details Last Updated DateTime 07/21/2024 162.56 cm 78 /min 95 % 95 % DEEPAK MANSFIELD[address], [address], [place], [address] , [facility] 07/21/2024 15:42:40 Social History Question Answer Notes LastModified by Organizat ion Details LastModified Time Tobacco Smoking Status Former Smoker can't remember when she quit Ana Damon MD [address] [facility] [facility] [address], [place], [address], [facility] 09/26/2021 19:09:18 Do You Have An Advance Directive? Yes Information not available 09/26/2021 What Is Your Level Of Alcohol Consumption? None Information not available 09/25/2021 What Is Your Code Status? DNR/DNI Information not available 09/25/2021 Where Do You Live? [facility]. Was Living With Son, But He Is Not Home During The Day. Information not available 05/29/2023 Legal Guardian? No Informati on not available 09/26/2021 Do You Have A Medical Power Of Flat Drier? Yes Invoked Information not available 09/26/2021 What [...] adjuvanted, quadrivalent, PF 05/21/2022 completed Dena maza, [facility] 08/17/2023 10:49:52 Influenza, adjuvanted, quadrivalent, PF 03/04/2023 completed Dena maza [facility] 08/17/2023 10:50:06 Past Encounters Encounter ID Performer Location Encounter Start Date Encounter Closed Date Diagnosis/Indication Diagnosis SNOMED-CT Code Diagnosis ICD10 Code Diagnosis Note [id number] MIKIE DUONG [address] [facility] [place] [address] 09/25/2021 09:13:56 09/30/2021 13:45:49 Severe pain 53026469 R52 fentanyl patch 50 mcgdilaudi d 1 mg q4hr prnprednis one 10 mg dailyrepos ition prnhospice consult and admission Osteoporosis 30594246 M8 1.0 methotrexa te 2.5 len dronate 70 thursdaypred nisone 10 mg daily Osteoarthritis 143122204 M19.90 dilaudid 1 mg q4 hr prnfentany l 50 mcg patch Mixed anxi ety and depressive disorder 236880765 F41.8 wellbutrin xl 150 mg bid Hypothyroidism 52826717 E03.9 levothyrox ine 200 mcg daily Gastroesop hageal reflux disease without esophagitis 055307142 K21.9 omeprazole 40 mg daily Adult fail ure to thrive syndrome 194878756 R62.7 encourage po intake fall W19.XXXA PT OT eval and treatfall precaution sfrequent safety checks Atrial fibrillation 4943 6004 I48.91 eliquis 5 mg bidlasix 40 mg daily Hyperlipidemia 59511761 E78.5 atorvastat in 40 mg daily [id number] Ana Damon MD [facility] [address] [place] [address] 09/26/2021 15:54:36 09/30/2021 14:03:56 Osteoporosis 36008716 M81.0 Will d/c alendronat e Osteoarthritis 397400518 M15.0 Unclear what she is on MTX for, if it's OA or pulmonary fibrosis.C ontinue methotrexa te 2.5 mg weekly.Chelsi n control as above. Mixed anxi ety and depressive disorder 328369207 F41.8 Continue wellbutrin xl 150 mg BID.Monito r mood. Hypothyroidism 62902153 E03.8 With elevated TSH, but nl FT4. Will leave dosing as is for now, bayron. since pt is transition ing to hospice.Co ntinue levothyrox ine 200 mcg qd.No further labs. Gastroesop hageal reflux disease without esophagitis 124430364 K21.9 Continue omeprazole 40 mg qd.Monitor sxs/ Adult fail ure to thrive syndrome 336907335 R62.7 Continue oral supplement s as able. Fall W19.XXXA Unable to participat e in rehab.Cont inue fall precaution s.Monitor for safety. Atrial fibrillation 4943 6004 I48.0 Rate in good control on no rate controllin g meds.Leonora nue eliquis 5 mg BID for AC.Monitor HR and bleeding risk Hyperlipidemia 54978522 E78.49 Will d/c atorvastat inNo further labs Spinal roni nosis of lumbar region 81607199 M48.062 With continued distress, unclear how much is pain and how much is behavioral .Will start roxanol 5 mg q 4 hrs scheduled and q 1 hr prn. Hold for oversedati on.Continu e fentanyl patch 50 mcg q 72 hrs and dilaudid 1 mg q 4 hrs prnContinu e prednisone 10 mg qd.Hospice consult pending. [id number] BRYANNA URBANO NP [address] [address] 09/27/2021 10:49:34 09/30/2021 14:31:05 Mixed anxiety and depressive disorder 324287783 F41.8 wellbutrin xl 150 mg bid-pm dose is 50 mg a week decrease until donethen remeron can be startedris perdal 0.5 mg bidAIMs 0 Adult fail ure to thrive syndrome 915741534 R62.7 encourage po intakereme sonal 7.5 mg hs [id number] BRYANAN URBANO NP [address] [address] 09/30/2021 12:53:54 10/04/2021 13:57:38 Mixed anxiety and depressive disorder 672032696 F41.8 wellbutrin xl 150 mg bid-pm dose is 100 mg decrease for 7 days then discontinu ishan remeron can be startedris perdal 0.5 mg bid-decrea sed to 0.25 mg am, 0.5 mg hsAIMs 0 Adult fail ure to thrive syndrome 630993121 R62.7 encourage po intakereme sonal 7.5 mg hs when hs wellbutrin finished Spinal roni nosis of lumbar region 31578912 M48.062 fentanyl patch 50 mcg q72 daysdilaud id 1 mg q4hr prnprednis on 10 mg daily [id number] Ana Damon MD [address] [address] 10/01/2021 19:18:36 10/04/2021 14:59:14 Spinal stenosis of lumbar region 19079699 M48.062 Continue fentanyl patch 50 mcg q 72 hrs and dilaudid 1 mg q 4 hrs prnContinu e prednisone 10 mg qd.Reconsi jeff hospice consult if pt. not able to tolerate med changes as below. Mixed anxi ety and depressive disorder 724171994 F41.8 Continue Wellbutrin 150 mg qAM and PM dose 100 mg until 10/08 then d/c pm doseStart mirtazapin e 7.5 mg qhs on 10/08Contin ue risperdal 0.25 mg qam and 0.5 mg qhsMonitor effect. Adult fail ure to thrive syndrome 964206163 R62.7 encourage po intakeStar t remeron 7.5 mg hs when hs wellbutrin finished as above. [id number] BRYANNA URBANO NP [address] [address] 10/03/2021 10:04:53 10/09/2021 15:41:28 Adult failure to thrive syndrome 952843601 R62.7 encourage po intakereme sonal 7.5 mg hs when hs wellbutrin finished 10/08 Mixed anxi ety and depressive disorder 195631535 F41.8 wellbutrin xl 150 mg bid-pm dose is 100 mg decrease for 7 days then discontinu e 10/08then remeron can be startedris perdal 0.5 mg bid-decrea sed to 0.25 mg am, 0.5 mg hsAIMs 0 Severe pain 40000708 R52 fentanyl patch 50 mcgdilaudi d 1 mg q4hr prn-d/c due to lack of useprednis one 10 mg dailyrepos ition prnhospice consult and admissionr oxanol was d/c due to morphine allergy [id number] BRYANNA URBANO NP [address] [address] 10/09/2021 10:18:53 10/14/2021 14:25:24 Mixed anxiety and depressive disorder 145536165 F41.8 wellbutrin xl 150 mg bid-pm dose is 100 mg decrease for 7 days then discontinu e 10/08then remeron can be startedris perdal 0.5 mg hs-am dose d/cAIMs 0 Adult fail ure to thrive syndrome 079732095 R62.7 encourage po intakereme sonal 7.5 mg hs when hs wellbutrin finished 10/08 Severe pain 89514874 R52 fentanyl patch 50 mcgdilaudi d 1 mg q4hr prn-d/c due to lack of useprednis one 10 mg dailyrepos ition prnhospice consult and admissionr oxanol was d/c due to morphine allergy [id number] BRYANNA URBANO NP [address] [address] 10/11/2021 10:22:56 10/14/2021 15:05:22 Mixed anxiety and depressive disorder 737248167 F41.8 wellbutrin xl 150 mg bid-pm dose is 100 mg decrease for 7 days then discontinu e 10/08then remeron can be startedris perdal 0.5 mg hs-am dose d/cAIMs 0 Adult fail ure to thrive syndrome 831702193 R62.7 encourage po intakereme sonal 7.5 mg hs when hs wellbutrin finished 10/08 Severe pain 60369868 R52 fentanyl patch 50 mcgdilaudi d 1 mg q4hr prn-d/c due to lack of useprednis one 10 mg dailyrepos ition prnhospice consult and admissionr oxanol was d/c due to morphine allergy [id number] BRYANNA URBANO NP [address] [address] 10/14/2021 12:20:18 10/16/2021 14:26:14 Severe pain 36720098 R52 fentanyl patch 50 mcgprednis one 10 mg dailyrepos ition prnroxanol was d/c due to morphine allergy Mixed anxi ety and depressive disorder 171553987 F41.8 wellbutrin xl 150 mgremeron 7.5 mg dailyrispe rdal 0.5 mg hs-am dose d/cAIMs 0 Fall W19.XXXA PT OT eval and treatfall precaution sfrequent safety checks [id number] BRYANNA URBANO NP [address] [address] 10/16/2021 13:18:48 10/23/2021 10:49:11 Adult failure to thrive syndrome 807328945 R62.7 encourage po intakereme sonal 7.5 mg hs when hs wellbutrin finished 10/08 Mixed anxi ety and depressive disorder 250933033 F41.8 wellbutrin xl 150 mgremeron 7.5 mg dailyrispe rdal 0.5 mg hs-am dose d/cAIMs 0 Severe pain 77609037 R52 fentanyl patch 50 mcgprednis one 10 mg dailyrepos ition prnroxanol was d/c due to morphine allergy Edema 389400299 R60.9 lasix 40 mg daily will increase to bid for 7 days [id number] Su Frey [address] [address] 10/18/2021 11:22:25 10/23/2021 11:24:28 Adult failure to thrive syndrome 740837398 R62.7 Appetite improveden courage po intakereme sonal 7.5 mg QHSMonitor weights Mixed anxi ety and depressive disorder 773165606 F41.8 wellbutrin xl 150 mgremeron 7.5 mg dailyrispe rdal 0.5 mg hsMonitor moodPsych eval prn Severe pain 73028527 R52 fentanyl patch 50 mcgprednis one 10 mg dailyBack pain now well controlled Monitor Edema 093182562 R60.9 Lasix 40 mg BIDACE wraps BLEElevate legs as toleratedM onitor [id number] BRYANNA URBANO NP [address] [address] 10/21/2021 10:50:08 10/23/2021 11:52:29 Edema 537452846 R60.9 lasix 40 mg bidmetolaz one 2.5 mg tues, thursace wraps Severe pain 33863985 R52 fentanyl patch 50 mcgprednis one 10 mg dailyrepos ition prnroxanol was d/c due to morphine allergy [id number] BRYANNA URBANO NP [address] [address] 10/24/2021 10:43:36 10/29/2021 12:14:04 Edema 140221112 R60.9 lasix 40 mg bidmetolaz one 2.5 mg tues, thurs, add a dose sundayace wraps Adult fail ure to thrive syndrome 764442382 R62.7 encourage po intakereme sonal 7.5 mg hs Mixed anxi ety and depressive disorder 627746052 F41.8 wellbutrin xl 150 mgremeron 7.5 mg dailyrispe rdal 0.5 mg hs- decrease hs dose to 0.25 mgAIMs 0 [id number] BRYANNA URBANO NP [facility] [place] [address] [place] [address] [place] [address] 10/30/2021 10:59:13 11/05/2021 10:01:44 Adult failure to thrive syndrome 482370905 R62.7 encourage po intakereme sonal 7.5 mg hs Mixed anxi ety and depressive disorder 305719078 F41.8 wellbutrin xl 150 mgremeron 7.5 mg dailyrispe rdal 0.25 mg- discontinu eAIMs 0 Severe pain 07850201 R52 fentanyl patch 50 mcgprednis one 10 mg dailyrepos ition prnroxanol was d/c due to morphine allergy [id number] Ana Damon MD [address] [place] [address] 11/19/2021 18:25:18 11/25/2021 15:04:26 Adult failure to thrive syndrome 525661586 R62.7 Doing much better. Wt. has been stable.Say s her appetite is good.Leonora nue mirtazapin e 7.5 mg qhs.Monito r wts. Mixed anxi ety and depressive disorder 086195291 F41.8 Mood good today.Cont inue wellbutrin XL 150 mg qd and mirtazapin e 7.5 mg qhsMonitor mood.Consu lt psych prn Severe pain 85509572 R52 Under good control on fentanyl patch 50 mcg q 3 days, prednisone 10 mg qd, and APAP prnRestart ing PT this week.Monit ro Edema 676466268 R60.0 Continue lasix 40 mg BID and metolazone 2.5 mg 2x/wk on & .Cont inue wilma wraps daily.Carmela tor Hypokalemia 31851266 E87 .6 With borderline low K+ for awhile. Has never been on K+ supplement .Will recheck next week and if still low will add KCL 10 meq qd.Monitor [id number] BRYANNA URBANO NP [facility] [address] [place] [address] [place] [address] 12/12/2021 10:09:42 12/17/2021 16:08:08 Adult failure to thrive syndrome 634330269 R62.7 Doing much better. Wt. has been stable.Say s her appetite is good.Leonora nue mirtazapin e 7.5 mg qhs.Monito r wts. Mixed anxi ety and depressive disorder 634333045 F41.8 Mood good today.well butrin XL 150 mg qd and mirtazapin e 7.5 mg qhsMonitor mood.Consu lt psych prn Severe pain 61117300 R52 Under good control on fentanyl patch 50 mcg q 3 days, prednisone 10 mg qd, and APAP prnRestart ing PT this week.Monit ro Edema 635594852 R60.0 lasix 40 mg BIDmetolaz one 2.5 mg 2x/wk on & .Cont inue wilma wraps daily.Carmela tor Hypokalemia 75131894 E87 .6 With borderline low K+ for awhile. Has never been on K+ supplement .Will recheck next week and if still low will add KCL 10 meq qd.Monitor Atrial fibrillation 4943 6004 I48.0 eliquis 5 mg bidlasix 40 mg bid daily Gastroesop hageal reflux disease without esophagitis 867914535 K21.9 omeprazole 40 mg daily Hyperlipidemia 24306490 E78.49 atorvastat in 40 mg daily Hypothyroidism 76225223 E03.8 levothyrox ine 200 mcg daily Osteoarthritis 859970429 M15.0 fentanyl 50 mcg patch q72 hr Osteoporosis 36759171 M8 1.0 methotrexa te 2.5 ayalen dronate 70 thursdaypred nisone 10 mg daily Spinal roni nosis of lumbar region 26553715 M48.062 fentanyl patch 50 mcg q72 hourspredn isone 10 mg daily Fall W19.XXXA PT OT eval and treatfall precaution sfrequent safety checks [id number] MIKIE DUONG [address] [place] [address] rd [place] [address] 01/03/2022 14:55:57 01/06/2022 20:46:48 Pancreatitis 24556548 K85.90 monitor for symptomsmo nitor labs Adult fail ure to thrive syndrome 864237469 R62.7 Doing much better. Wt. has been stable.Say s her appetite is good.gary zapine 7.5 mg qhs.Monito r wts. Mixed anxi ety and depressive disorder 427505352 F41.8 Mood good today.well butrin XL 150 mg bidmirtaza pine 7.5 mg qhsMonitor mood.Consu lt psych prn Severe pain 19610854 R52 Under good control on fentanyl patch 50 mcg q 3 days,predn isone 10 mg qd,APAP 650 mg q4hr prnPT OT eval and treat prnMonitor Edema 205623603 R60.0 lasix 40 mg BIDmetolaz one 2.5 mg 2x/wk on & , thursday.Con tinue wilma wraps daily.Carmela tor Hypokalemia 28606499 E87 .6 With borderline low K+ for awhile. Has never been on K+ supplement .Monitor Atrial fibrillation 4943 6004 I48.0 eliquis 5 mg bidlasix 40 mg bid dailymetol azone 2.5 mg , doan Gastroesop hageal reflux disease without esophagitis 402572000 K21.9 omeprazole 40 mg daily Hyperlipidemia 39814884 E78.49 atorvastat in 40 mg daily Hypothyroidism 38258922 E03.8 levothyrox ine 200 mcg daily Osteoarthritis 388358913 M15.0 fentanyl 50 mcg patch q72 hr Osteoporosis 12700453 M8 1.0 prednisone 10 mg daily Spinal roni nosis of lumbar region 83336372 M48.062 fentanyl patch 50 mcg q72 hourspredn isone 10 mg daily Fall W19.XXXA PT OT eval and treatfall precaution sfrequent safety checks [id number] MIKIE DUONG [address] [place] [address] 01/06/2022 10:28:02 01/09/2022 13:18:55 Edema 403503792 R60.0 lasix 40 mg BIDmetolaz one 2.5 mg 2x/wk on & thursday.Con tinue wilma wraps daily.Carmela tor Pancreatitis 11646088 K8 5.90 monitor for symptomsmo nitor labs [id number] MIKIE DUONG [place] [address] [place] [address] 01/08/2022 12:46:02 01/10/2022 16:30:00 Edema 897871995 R60.0 lasix 40 mg BIDmetolaz one 2.5 mg 2x/wk on & , thursday.Con tinue wilma wraps daily-comp ression stockingsM onitor Pancreatitis 52770531 K8 5.90 monitor for symptomsmo nitor labs [id number] BRYANNA URBANO NP [address] [address] 01/10/2022 11:53:05 01/14/2022 12:50:34 Hypothyroidism 97277203 E03.8 levothyrox ine 200 mcg daily-incr ease to 225 mcgrecheck tsh-free T4 in 6 weeks [id number] MD KAREEM [facility] [place] [address] [place] [address] 02/11/2022 16:58:31 02/19/2022 16:14:54 Hypothyroidism 50972103 E03.8 Levothyrox ine was increased from 200 mcg qd to 225 mcg qd on 01/13 due to TSH of 12.24. Free T4 was WNL.Due for recheck of TSH and FT4 in a week or two. Adult fail ure to thrive syndrome 775354665 R62.7 Doesn't really have this dx anymore. Her wt. has been stable and her appetite is good.Leonora nue mirtazapin e 7.5 mg qhs.Monito r wts. Mixed anxi ety and depressive disorder 512867006 F41.8 Mood good today.Cont inue wellbutrin XL 150 mg qd and mirtazapin e 7.5 mg qhsMonitor mood.Psych following, may try a GDR. Edema 937082780 R60.0 Continue lasix 40 mg BID and metolazone 2.5 mg 2x/wk on & .Cont inue WILMA wraps qd.Monitor Chronic pancreatitis 235 907723 K86.1 Under good control on fentanyl patch 50 mcg q 3 days, prednisone 10 mg qd, and APAP 650 mg q 6 hrs prnMonitor . Degenerati ve joint disease involving multiple joints 527063689 M15.0 Pain control as above.Also diclofenac gel to shoulders BID and hands prn.Will add lidocaine patches to shoulders, low back and elbows as needed.PT/ OT as needed.Mon itor [id number] BRYANNA VELAMIKIE ALICEA KAREEM HAYNES [address] [place] [address] 02/25/2022 11:22:33 03/10/2022 20:26:15 Hypothyroidism 60326119 E03.8 levothyrox ine 225 mcgrecheck tsh-free T4 in 6 weeks Spinal roni nosis of lumbar region 71260954 M48.062 fentanyl patch 50 mcg q72 hourspredn isone 10 mg daily [id number] BRYANNA MIKIE URBANO KAREEM [address] [address] 03/28/2022 11:18:57 04/03/2022 10:05:40 Degenerative joint disease involving multiple joints 451026224 M15.0 tramadol 25 mg q6hr prndiclofe nac gel to shoulders BID and hands prn.Will add lidocaine patches to shoulders, low back and elbows as needed.PT/ OT as needed.Mon itor Severe pain 58821341 R52 Under good control on fentanyl patch 50 mcg q 3 days,predn isone 10 mg qd,APAP 650 mg q4hr prnPT OT eval and treat prnMonitor [id number] BRYANNA VELANIXON MIKIE [address] [address] 04/04/2022 10:53:36 04/08/2022 15:25:03 Mixed anxiety and depressive disorder 840530520 F41.8 Mood good today.well butrin XL 150 mg bidmirtaza pine 7.5 mg qhsMonitor mood.Consu lt psych prn Severe pain 70241059 R52 fentanyl patch 50 mcg q 3 days,predn isone 10 mg qd,APAP 1000 mg tidtramado l 25 mg bid prnPT OT eval and treat prnMonitor Edema 429494439 R60.0 lasix 40 mg BIDmetolaz one 2.5 mg 2x/wk on & , thursday.Con tinue wilma wraps daily.Carmela tor Hypokalemia 25715932 E87 .6 With borderline low K+ for awhile. Has never been on K+ supplement .Monitor Atrial fibrillation 4943 6004 I48.0 eliquis 5 mg bidlasix 40 mg bid dailymetol azone 2.5 mg , , doan Gastroesop hageal reflux disease without esophagitis 556207135 K21.9 omeprazole 40 mg daily Hyperlipidemia 40109182 E78.49 monitor Hypothyroidism 62114409 E03.8 levothyrox ine 225 mcg daily Osteoarthritis 464628057 M15.0 fentanyl 50 mcg patch q72 hrAPAP 1000 mg tidtramado l 25 mg bid prnglucosa mine 500 mg tid Osteoporosis 93789347 M8 1.0 prednisone 10 mg daily Spinal roni nosis of lumbar region 22686429 M48.062 fentanyl patch 50 mcg q72 hourspredn isone 10 mg daily Fall W19.XXXA PT OT eval and treatfall precaution sfrequent safety checks Adult fail ure to thrive syndrome 641431254 R62.7 Doing much better. Wt. has been stable.Say s her appetite is good.gary zapine 7.5 mg qhs.Monito r wts. Degenerati ve joint disease involving multiple joints 505550043 M15.0 tramadol 25 mg bid prndiclofe nac gel to shoulders BID and hands prn.Will add lidocaine patches to shoulders, low back and elbowsgluc osamine 500 mg bidPT/OT as needed.Mon itor [id number] MIKIE DUONG [address] [address] 04/10/2022 12:09:08 04/22/2022 16:17:48 Degenerative joint disease involving multiple joints 327558535 M15.0 tramadol 25 mg bid prndiclofe nac gel to shoulders BID and hands prn.Will add lidocaine patches to shoulders, low back and elbowsgluc osamine 500 mg bidtizanad ine 2 mg bidPT/OT as needed.Mon itor Severe pain 68287848 R52 fentanyl patch 50 mcg q 3 days,predn isone 10 mg qd,APAP 1000 mg tiddiclofe nac gel and lido patchestiz anidine 2 mg bidtramado l 25 mg bid prnPT OT eval and treat prnMonitor [id number] MIKIE DUONG [place] [address] [place], [place] [address], [place] [address] 05/07/2022 10:29:27 05/09/2022 15:20:45 Pancreatitis 75904960 K85.90 monitor for symptomsmo nitor labs Mixed anxi ety and depressive disorder 464701106 F41.8 Mood good today.well butrin XL 150 mg bidmirtaza pine 7.5 mg qhsMonitor mood.Consu lt psych prn Severe pain 05830340 R52 fentanyl patch 50 mcg q 3 days,predn isone 10 mg qd,APAP 1000 mg tidtramado l 25 mg bid prnPT OT eval and treat prnMonitor Edema 995516911 R60.0 lasix 40 mg BIDmetolaz one 2.5 mg 2x/wk on & , thursday.Con tinue wilma wraps daily.Carmela tor Hypokalemia 24084143 E87 .6 With borderline low K+ for awhile. Has never been on K+ supplement .Monitor Atrial fibrillation 4943 6004 I48.0 eliquis 5 mg bid-on hold due to buttock bruiselasi x 40 mg bid dailymetol azone 2.5 mg , doan Gastroesop hageal reflux disease without esophagitis 131099168 K21.9 omeprazole 40 mg daily Hyperlipidemia 10520015 E78.49 monitor Hypothyroidism 02704013 E03.8 levothyrox ine 225 mcg daily Osteoarthritis 024572836 M15.0 fentanyl 50 mcg patch q72 hrAPAP 1000 mg tidtramado l 25 mg bid prnglucosa mine 500 mg tid Osteoporosis 16511809 M8 1.0 prednisone 10 mg daily Spinal roni nosis of lumbar region 57040057 M48.062 fentanyl patch 50 mcg q72 hourspredn isone 10 mg daily Fall W19.XXXA PT OT eval and treatfall precaution sfrequent safety checks Adult fail ure to thrive syndrome 109714200 R62.7 Doing much better. Wt. has been stable.Say s her appetite is good.gary zapine 7.5 mg qhs.Monito r wts. Degenerati ve joint disease involving multiple joints 042746055 M15.0 tramadol 25 mg bid prndiclofe nac gel to shoulders BID and hands prn.Will add lidocaine patches to shoulders, low back and elbowsgluc osamine 500 mg bidPT/OT as needed.Mon itor Contusion 020197901 T14. 8XXA monitor bruising for extension or lesseningh old eliquis [id number] Samina Wilburn MD [facility] [place] [address] [place] [address] [place] [address] 05/30/2022 07:35:26 06/04/2022 16:14:23 Chronic pain 35248365 G89.29 diclofenac gel 1% to shoulders bid, to both hands and spine prnfentany l patch 50 mcg q72 hsalonpas patch to right shoulder dailyAPAP 1000 mg tidtramado l 25 mg bidtizanid ine 2 mg bidprednis one 10 mg dailyPT/OT /PM&R prnwill monitor Mixed anxi ety and depressive disorder 959254036 F41.8 bupropion SR 150 mg dailymirta zapine 7.5 mg at hswill monitor Hypothyroidism 53546640 E03.8 levothyrox ine 225 mcg dailywill monitor Atrial fibrillation 4943 6004 I48.0 consider restart ACheld due to hematoma Type 2 russel betes mellitus 01279354 E11.9 insulin aspart per sliding scalewill monitor Edema 776951600 R60.0 furosemide 40 mg dailymetol azone 2.5 mg daily on T, Th, Sawill monitor Gastroesop hageal reflux disease without esophagitis 722183140 K21.9 omeprazole 40 mg bidwill monitor Recurrent pancreatitis 079477573 K86.1 fu GI prnlow fat dietwill monitor [id number] MIKIE DUONG [address] [place] [address] [place] [address] 07/21/2022 10:43:42 08/01/2022 13:30:09 COVID-19 250554924 U07.1 07/20 covid positiveen courage po food and fluidscons ider ivf for anorexiaco nsider paxlovid or decadron for symptomsse nd to ED for decompensa tion [id number] MIKIE DUONG [place] [address] [place] [phone] 07/23/2022 11:28:07 08/01/2022 14:08:08 COVID-19 318827609 U07.1 07/20 covid positiveen courage po food and fluidscons ider ivf for anorexiaco nsider paxlovid or decadron for symptomsse nd to ED for decompensa tion Chronic pain 59619445 G8 9.29 diclofenac gel 1% to shoulders bid, to both hands and spine prnfentany l patch 50 mcg q72 hsalonpas patch to right shoulder dailyAPAP 1000 mg tidtramado l 25 mg bidtizanid ine 2 mg bidprednis one 10 mg dailyPT/OT /PM&R prnwill monitor Mixed anxi ety and depressive disorder 794803815 F41.8 bupropion SR 150 mg dailymirta zapine 7.5 mg at hswill monitor Hypothyroidism 95397133 E03.8 levothyrox ine 225 mcg dailywill monitor Atrial fibrillation 4943 6004 I48.0 eliquis 2.5 mg bidmonitor for any hematomas Type 2 russel betes mellitus 17001645 E11.9 insulin aspart per sliding scalewill monitor Edema 128311506 R60.0 furosemide 40 mg dailymetol azone 2.5 mg daily on T, Th, Sawill monitor Gastroesop hageal reflux disease without esophagitis 262818225 K21.9 omeprazole 40 mg bidwill monitor Recurrent pancreatitis 592566349 K86.1 fu GI prnlow fat dietwill monitor [id number] IMKIE DUONG [place] [address] [place] [address] 07/25/2022 10:22:57 08/01/2022 15:15:29 COVID-19 776668080 U07.1 07/20 covid positiveen courage po food and fluidscons ider ivf for anorexiaco nsider paxlovid or decadron for symptomsse nd to ED for decompensa tion [id number] BRYANNA URBANO NP [address] [address] 07/30/2022 11:27:21 08/01/2022 15:57:11 COVID-19 089589770 U07.1 07/20 covid positive-a symptomati c, recovered by dateencour age po food and fluidscons ider ivf for anorexiaco nsider paxlovid or decadron for symptomsse nd to ED for decompensa tion [id number] BRYANNA URBANO NP KAREEM HAYNES [address] [place] [phone] 07/31/2022 12:15:38 08/05/2022 18:21:58 COVID-19 890731928 U07.1 07/20 covid positive-a symptomati c, recovered by dateencour age po food and fluidscons ider ivf for anorexiaco nsider paxlovid or decadron for symptomsse nd to ED for decompensa tionCXR ordered for 07/31 Pancreatitis 76339984 K8 5.90 monitor for symptomsmo nitor labs [id number] BRYANNA URBANO NP KAREEM [place] [address] [place] [phone] 08/01/2022 11:59:17 08/06/2022 08:14:07 COVID-19 632371813 U07.1 07/20 covid positive-a symptomati c, recovered by dateencour age po food and fluidscons ider ivf for anorexiaco nsider paxlovid or decadron for symptomsse nd to ED for decompensa tionCXR ordered for 07/31-negati ve for chf or pna [id number] Margarette Awad NP [address] [address] 08/09/2022 10:30:12 08/13/2022 13:00:41 COVID-19 828003687 U07.1 resolved- no new treatment in hospital documentof f isolation precaution scovid rapid negative in facility on 08/09/22 per nursingmon itor for sequelae note: 07/20 covid positive-a symptomati c, recovered by dateencour age po food and fluidscons ider ivf for anorexiaco nsider paxlovid or decadron for symptomsse nd to ED for decompensa tionCXR ordered for 07/31-negati ve for chf or pna Pancreatitis 02022764 K8 5.90 was treated with ivf, medication s, and pain adjuncts- now improvedmo nitor for symptomsav oid fatty foods on low fat dietmonito r labs Chronic pain 22790019 G8 9.29 contdiclof enac gel 1% to shoulders bid, to both hands and spine prnfentany l patch 50 mcg q72 hsalonpas patch to right shoulder dailyAPAP 1000 mg tidtramado l 25 mg bidtizanid ine 2 mg bidprednis one 10 mg dailyPT/OT for weakness and painwill monitor Recurrent pancreatitis 742560472 K86.1 fu GI prnlow fat dietwill monitor Dislocatio n of shoulder joint 980859552 S43.004A pt has right shoulder dislocatio ncontinue pain meds as belowsling and swath as toleratedp assive romPT/OTfu with Dr Velasquez outptmonit or for cms, pulses, disclorati on [id number] MIKIE DUONG [address] [address] 08/11/2022 10:07:53 08/13/2022 13:35:33 Pancreatitis 86823241 K85.90 monitor for symptomsmo nitor labswas treated with ivf, medication s, and pain adjuncts- now improvedmo nitor for symptomsav oid fatty foods on low fat diet Dislocatio n of shoulder joint 922759433 S43.004A pt has chronic right shoulder dislocatio ncontinue pain medssling and swath as toleratedp assive romPT/OTfu with Dr Velasquez outptmonit or for cms, pulses, disclorati on [id number] BRYANNA URBANO NP [address] [address] 08/25/2022 11:17:28 08/27/2022 14:05:17 Pancreatitis 49458243 K85.90 monitor for symptomsmo nitor labswas treated with ivf, medication s, and pain adjuncts- now improvedmo xifloxin 400 mg daily x4 daysmonito r for symptoms avoid fatty foods on low fat diet Dislocatio n of shoulder joint 385779783 S43.004A pt has chronic subluxatio n right shoulder dislocatio ncontinue pain meds as belowsling and swath as toleratedp assive romPT/OTfu with Dr Velasquez outptmonit or for cms, pulses, disclorati on Chronic pain 65835043 G8 9.29 contdiclof enac gel 1% to shoulders bid, to both hands and spine prnfentany l patch 50 mcg q72 hsalonpas patch to right shoulder dailyAPAP 1000 mg tidtramado l 25 mg bidtizanid ine 2 mg bidprednis one 10 mg dailyPT/OT for weakness and painwill monitor COVID-19 820676187 U07.1 resolved- no new treatment in hospital documentof f isolation precaution scovid rapid negative in facility on 08/09/22 per nursingmon itor for sequelae note: 07/20 covid positive-a symptomati c, recovered by dateencour age po food and fluidscons ider ivf for anorexiaco nsider paxlovid or decadron for symptomsse nd to ED for decompensa tionCXR ordered for 07/31-negati ve for chf or pna Recurrent pancreatitis 716517475 K86.1 f/u GI prnlow fat dietwill monitor [id number] MIKIE DUONG [address] [place] [address] 09/04/2022 10:39:19 09/08/2022 15:11:55 Dislocation of shoulder joint 380290115 S43.004A pt has chronic subluxatio n right shoulder dislocatio ncontinue pain meds as belowsling and swath as tolerated for comfort prnPT/Edilson/ u with Dr Velasquez outptmonit or for cms, pulses, disclorati on Mixed anxi ety and depressive disorder 790029061 F41.8 bupropion SR 150 mg dailymirta zapine 7.5 mg at hswill monitor [id number] MD KAREEM Lloyd [address] [place] [address] 10/01/2022 10:06:00 10/03/2022 11:00:52 Atrial fibrillation 53554749 I48.0 apixaban 2.5 mg bidwill monitor Recurrent pancreatitis 417518891 K86.1 fu GIlow fat dietwill monitor Gastroesop hageal reflux disease without esophagitis 410450925 K21.9 omeprazole 40 mg bidwill monitor Type 2 russel betes mellitus 00786067 E11.9 insulin aspart per sliding scalewill monitor Chronic pain 06033731 G8 9.29 diclofenac gel 1% to shoulders bid, to both hands and spine prnfentany l patch 50 mcg q72 hsalonpas patch to right shoulder dailyAPAP 1000 mg tidtramado l 25 mg bidtizanid ine 2 mg bidprednis one 10 mg dailyPT/OT /PM&R prnwill monitor Peripheral edema 1771131 00 R60.0 metolazone 2.5 mg Tu, Th, Sufurosemi de 40 mg bidwill monitor Hypothyroidism 45237485 E03.8 levothyrox ine 225 mcg dailywill monitor Mixed anxi ety and depressive disorder 277586292 F41.8 bupropion SR 150 mg dailymirta zapine 7.5 mg at hstizanidi ne 2 mg bidwill monitor Essential hypertension 42538816 I10 metolazone 2.5 mg daily on , , Safurosemi de 40 mg bidwill monitor [id number] MIKIE DUONG [address] [place] [address], [place] [address] 10/15/2022 14:06:21 10/20/2022 14:25:22 Atrial fibrillation 23081271 I48.0 apixaban 2.5 mg bidwill monitor Recurrent pancreatitis 721610875 K86.1 fu GIlow fat dietwill monitor Gastroesop hageal reflux disease without esophagitis 592000023 K21.9 omeprazole 40 mg bidwill monitor Type 2 russel betes mellitus 29839792 E11.9 insulin aspart per sliding scalewill monitor Chronic pain 74960177 G8 9.29 diclofenac gel 1% to shoulders bid, to both hands and spine prnfentany l patch 50 mcg q72 hsalonpas patch to right shoulder dailyAPAP 1000 mg tidtramado l 25 mg bidtizanid ine 2 mg bidprednis one 10 mg dailyPT/OT /PM&R prnwill monitor Peripheral edema 1405191 00 R60.0 metolazone 2.5 mg Tu, Th, Sufurosemi de 40 mg bidwill monitor Hypothyroidism 56100765 E03.8 levothyrox ine 225 mcg dailywill monitor Mixed anxi ety and depressive disorder 617273129 F41.8 bupropion SR 150 mg dailymirta zapine 7.5 mg at hstizanidi ne 2 mg bidwill monitor Essential hypertension 83091445 I10 metolazone 2.5 mg daily on , , Safurosemi de 40 mg bidwill monitor [id number] BRYANNA URBANO NP [address] [address] 11/28/2022 13:21:24 12/03/2022 17:20:32 Atrial fibrillation 12373573 I48.0 apixaban 2.5 mg bidwill monitor Recurrent pancreatitis 280791887 K86.1 f/u GIlow fat dietwill monitor Gastroesop hageal reflux disease without esophagitis 193348786 K21.9 omeprazole 40 mg bidwill monitor Type 2 russel betes mellitus 31336280 E11.9 insulin aspart per sliding scalewill monitor Chronic pain 55502359 G8 9.29 diclofenac gel 1% to shoulders bid, to both hands and spine prnfentany l patch 50 mcg q72 hsalonpas patch to right shoulder dailyAPAP 1000 mg tidtramado l 25 mg bidtizanid ine 2 mg bidprednis one 10 mg dailyPT/OT /PM&R prnwill monitor Peripheral edema 7418126 00 R60.0 metolazone 2.5 mg , , Sufurosemi de 40 mg bidwill monitor Hypothyroidism 87343405 E03.8 levothyrox ine 225 mcg dailywill monitor Mixed anxi ety and depressive disorder 758731975 F41.8 bupropion SR 150 mg dailymirta zapine 7.5 mg at hstizanidi ne 2 mg bidwill monitor Essential hypertension 21490117 I10 metolazone 2.5 mg daily on , , Safurosemi de 40 mg bidwill monitor [id number] BRYANNA URBANO NP [address] [address] 01/14/2023 14:00:23 01/16/2023 15:25:27 Mixed anxiety and depressive disorder 840823125 F41.8 bupropion SR 150 mg dailymirta zapine 7.5 mg at hstizanidi ne 2 mg bidwill monitor Severe pain 99160940 R52 fentanyl patch 50 mcg q 3 days,predn isone 10 mg qd,APAP 1000 mg tidtramado l 25 mg bid prnPT OT eval and treat prnMonitor Fall W19.XXXA PT OT eval and treatfall precaution sfrequent safety checks [id number] Samina Wilburn MD [facility] [address] [place] [address] 02/11/2023 10:06:26 02/13/2023 16:03:58 Mixed anxiety and depressive disorder 355695020 F41.8 bupropion SR 150 mg dailymirta zapine 7.5 mg at hswill monitor Atrial fibrillation 4943 6004 I48.0 apixaban 2.5 mg bidwill monitor Type 2 russel betes mellitus 59859858 E11.9 insulin aspart per sliding scalewill monitor Chronic pain 89986546 G8 9.29 diclofenac gel 1% to shoulders bid, to both hands and spine prnfentany l patch 50 mcg q72 hsalonpas patch to right shoulder dailyAPAP 1000 mg tidtramado l 25 mg bidtizanid ine 2 mg bidprednis one 10 mg dailyPT/OT /PM&R prnwill monitor Gastroesop hageal reflux disease without esophagitis 663734733 K21.9 omeprazole 40 mg bidwill monitor Hypothyroidism 71985405 E03.8 levothyrox ine 225 mcg dailywill monitor Edema 888840667 R60.0 furosemide 40 mg dailymetol azone 2.5 mg daily on , , Sawill monitor [id number] MD KAREEM Whitaker [address] [place] [address] 03/20/2023 20:34:03 03/23/2023 14:49:16 Ecchymosis present 653173118 S80.02XA Probably bumped it and doesn't remember, no pain, so no tx needed.Mon itor for resolution and monitor for new ecchymoses . Nausea 803492758 R11.0 Mild, periodic and chronic.Wi ll start Zofran 4 mg q 6 hrs prnMonitor sxs. Chronic neck pain 338974 1186 107 M54.2 Already on multiple pain meds.Will start lidocaine patch to neck prn, pt. says it only hurts sometimes, so doesn't want it scheduled. Continue fentanyl patch 50 mcg q 72 hrs, APAP 1000 mg TID,tramad ol 25 mg BID,tizani dine 2 mg BID andprednis one 10 mg qd.Monitor sxs. [id number] MIKIE DUONG [address] [place] [address] 04/03/2023 16:33:21 04/10/2023 09:59:49 Mixed anxiety and depressive disorder 969100710 F41.8 bupropion SR 150 mg dailymirta zapine 7.5 mg at hswill monitor Atrial fibrillation 4943 6004 I48.0 apixaban 2.5 mg bidwill monitor Type 2 russel betes mellitus 50064682 E11.9 insulin aspart per sliding scalewill monitor Chronic pain 81451438 G8 9.29 fentanyl patch 50 mcg q72 hsalonpas patch to right shoulder dailyAPAP 1000 mg tidtramado l 25 mg bidtizanid ine 2 mg bidprednis one 10 mg dailyPT/OT /PM&R prnwill monitor Gastroesop hageal reflux disease without esophagitis 252785804 K21.9 omeprazole 40 mg bidwill monitor Hypothyroidism 45183185 E03.8 levothyrox ine 225 mcg dailywill monitor Edema 708023272 R60.0 furosemide 40 mg dailymetol azone 2.5 mg daily on T, Th, Sawill monitor [id number] MD KAREEM Whitaker [address] [place] [address] 05/29/2023 18:52:13 06/12/2023 13:46:31 Mixed anxiety and depressive disorder 933182863 F41.8 Mood good tonight.Co ntinue bupropion SR 150 mg qd and mirtazapin e 7.5 mg qhsMonitor mood.Psych follows Atrial fibrillation 4943 6004 I48.0 Rate in good control on no rate controllin g meds.Leonora nue eliquis 2.5 mg BID for AC.Monitor HR and bleeding risk. Type 2 russel betes mellitus 55192657 E11.9 Last HgA1C 7.6 in 03/2022.Sug ars in adequate control on diet control with occ. SSI.Monito r fingerstic ks TID, due for recheck of HgA1C, forgot to order. Chronic pain 68482239 G8 9.29 Will add diclofenac gel for hands BID.Contin ue fentanyl patch 50 mcg q 72 hrs, salonpas patch to right shoulder qd, APAP 1000 mg TID, tramadol 25 mg BID, tizanidine 2 mg BID, and prednisone 10 mg qd.Continu e rehab as able.Monit or sxs. Gastroesop hageal reflux disease without esophagitis 987742425 K21.9 No current sxs.Contin ue omeprazole 40 mg BID.Monito r sxs Hypothyroidism 21182318 E03.8 TSH WNL.Contin ue levothyrox ine 225 mcg qdMonitor TSH yearly. Edema 663497429 R60.0 At baseline.C ontinue furosemide 40 mg qd and metolazone 2.5 mg qd on T, Th, SaMonitor sxs. [id number] BRYANNA URBANO NP [address] [address] 06/29/2023 12:07:31 07/07/2023 18:16:09 Fall 9809963 W19.XXXA PT OT eval and treatfall precaution sfrequent safety checks Contusion of face 195902 004 S00.83XA monitor neurosmoni tor for any signs of infectionm onitor for resolution of the bruising [id number] BRYANNA URBANO NP [address] [address] 07/01/2023 12:23:08 07/07/2023 19:15:00 Contusion of face 779854397 S00.83XA monitor neurosmoni tor for any signs of infectionm onitor for resolution of the bruising Edema 356029605 R60.0 furosemide 40 mg dailymetol azone 2.5 mg daily on T, Th, Sawill monitor [id number] BRYANNA URBANO NP [address] [address] 07/24/2023 12:53:42 08/04/2023 13:25:11 Contusion of face 253088326 S00.83XA resolvedmo nitor neurosmoni tor for any signs of infectionm onitor for resolution of the bruising Edema 829533768 R60.0 furosemide 40 mg dailymetol azone 2.5 mg daily on , , Sawill monitor Fall W19.XXXA PT OT eval and treatfall precaution sfrequent safety checks Mixed anxi ety and depressive disorder 263799933 F41.8 bupropion SR 150 mg dailymirta zapine 7.5 mg at hswill monitor Atrial fibrillation 4943 6004 I48.0 apixaban 2.5 mg bidwill monitor Type 2 russel betes mellitus 50596073 E11.9 insulin aspart per sliding scalewill monitor Chronic pain 55211220 G8 9.29 fentanyl patch 50 mcg q72 hsalonpas patch to right shoulder dailyAPAP 1000 mg tidtramado l 25 mg bidtizanid ine 2 mg bidprednis one 10 mg dailyPT/OT /PM&R prnwill monitor Gastroesop hageal reflux disease without esophagitis 722925426 K21.9 omeprazole 40 mg bidwill monitor Hypothyroidism 78651365 E03.8 levothyrox ine 225 mcg dailywill monitor [id number] NELDA MANSFIELD [address] [place] [address] 09/03/2023 09:01:19 09/08/2023 15:59:59 Dry skin dermatitis 981061056 L85.3 see hpireports intermitte nt itchiness at timesfluid s encouraged Apply moisturize r to skin BIDhydorco rtisone cream TID prn 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 not appreciate d on examwarm salt water rinses QID prngood oral hygiene encourageb arcos teeth after mealschlor hexidine mouth wash qd and HS Toothache 34394860 K08.8 9 [id number] MD KAREEM Lloyd [address] [place] [address] 5 09/23/2023 08:31:39 09/29/2023 10:26:59 Mixed anxiety and depressive disorder 205242986 F41.8 bupropion SR 150 mg dailymirta zapine 7.5 mg at hswill monitor Chronic pain 25025368 G8 9.29 diclofenac gel 1% to shoulders daily in eveningfen tanyl patch 50 mcg q72 hLidocaine patch to right shoulder and neck dailyAPAP 1000 mg tidtramado l 25 mg bidtizanid ine 2 mg bidprednis one 10 mg dailyPT/OT /PM&R prnwill monitor Atrial fibrillation 4943 6004 I48.0 apixaban 2.5 mg bidwill monitor Type 2 russel betes mellitus 68980797 E11.9 insulin aspart per sliding scalewill monitor Hypothyroidism 76102651 E03.8 levothyrox ine 225 mcg dailywill monitor Gastroesop hageal reflux disease without esophagitis 038086329 K21.9 omeprazole 40 mg bidwill monitor Edema 413730226 R60.0 furosemide 40 mg dailymetol azone 2.5 mg daily on T, Th, Sawill monitor Chronic dermatitis 96156 007 L20.89 d/c compressio n stockingst riamcinolo ne cream bidelevate d legswill monitor [id number] NELDA MANSFIELD [place] [address] [place] [address] 5 09/24/2023 08:15:25 10/01/2023 11:35:02 Fall 0740426 W19.XXXA see hpiPT/OT eval and tx per facility protocolmi nimize fall risknursin g to educate pt on making sure wheelchair is in lock position and front wheels are facing forward before getting up out of chair. Contusion 285896565 T14. 8XXA Patient hit her right almanza against bed frame when she fell forwardnot ed with mild tenderness on eliquismon itor right almanza bruise for healing [id number] NELDA MANSFIELD [address] [address] 10/13/2023 10:07:38 10/15/2023 15:15:36 Neuropathy 993334887 G62.9 bilateral lower extremity calf with tingling pain and tenderness she is not experience any pain relief with current pain medication spatient agrees to try gabapentin times one dose 100mg she will update nursing if she experience relief. Fatigue 23336048 R53.83 appears tirediron studies, tsh, t4, bmp and cbc, vit D and Vit B levels orderedwil l r/o UTI as well. Type 2 russel betes mellitus 93836753 E11.9 currently on lispro SSC will adjust coveragere cently added lantus 10 units10/12 increased lantus to 15 units Hypothyroidism 18514586 E03.8 levothyrox ine 225 mcg dailyord TSH, T4 for 10/13 [id number] NELDA MANSFIELD [address] [address] 10/19/2023 13:21:25 10/22/2023 12:31:39 Vitamin D deficiency 92899127 E55.9 VIt D level 22start cholecacif telly 1000 unit dailyreche ck Vitamin D level in 3-4 months Neuropathy 765735208 G62 .9 today she tells me that she has a postive effect with gabapentin and would like to continue, she has not had any pain.will scheduled gabapentin 100 mg BID Q12 Type 2 russel betes mellitus 66614418 E11.9 currently on lispro SSC will adjust coveragere cently added lantus 10 units10/12 increased lantus to 15 units10/18: FS have improved Hypothyroidism 05740828 E03.8 levothyrox ine 225 mcg dailyord TSH, T4 for 10/13 Pending Dry skin dermatitis 2600 44829 L85.3 posterior calf noted with red patchy areas that are dry and flakyrefus ed rx cream recommende thelma lee and has been using -goldbond creamuses her own with good effect per patient.wi monitor. [id number] NELDA MANSFIELD [address] [address] 10/30/2023 21:18:42 11/02/2023 15:19:50 Type 2 diabetes mellitus 60337711 E11.9 continue lispro SSCcontinu e lantus 15 unitsmonit or FS TID Hypothyroidism 50929598 E03.8 levothyrox ine decreased to 175 mcgTSH 0.1 T4 normal rangerepea t labs in 6 weeks Abdominal pain 86223217 R10.9 see hpicontinu e zofran prn for nauseaplan robin upcoming EGD. [id number] NELDA MANSFIELD [address] [address] 11/04/2023 10:45:41 11/16/2023 16:04:21 Type 2 diabetes mellitus 47300606 E11.9 continue lispro SSCcontinu e lantus 15 unitsmonit or FS TID Hypothyroidism 64086525 E03.8 levothyrox ine decreased to 175 mcgTSH 0.1 T4 normal rangerepea t labs in 6 weeks Abdominal pain 86165785 R10.9 see hpicontinu e zofran prn for nauseaEGD unremarkab le Urinary tr act infectious disease 21679396 N39.0 10/21: postive UAstart levofloxac in 250 mg for 5 daysstart probiotic 1 tab bid for 10 daysincrea se oral hydration. [id number] NELDA MANSFIELD [place] [address] [place] [address] [place] [address] 11/19/2023 10:42:12 11/27/2023 15:22:30 Type 2 diabetes mellitus 38112516 E11.9 continue lispro SSCcontinu e lantus 15 unitsmonit or FS TID Hypothyroidism 63946394 E03.8 levothyrox ine decreased to 175 mcgTSH 0.1 T4 normal rangerepea t labs in 6 weeks Abdominal pain 34630084 R10.9 see hpicontinu e zofran prn for nauseaEGD unremarkab le Urinary tr act infectious disease 92775720 N39.0 10/21: postive UAstart levofloxac in 250 mg for 5 daysstart probiotic 1 tab bid for 10 daysincrea se oral hydration. Mixed anxi ety and depressive disorder 473824294 F41.8 bupropion SR 150 mg dailymirta zapine 7.5 mg at hswill monitor Chronic pain 04162925 G8 9.29 diclofenac gel 1% to shoulders daily in eveningfen tanyl patch 50 mcg q72 hLidocaine patch to right shoulder and neck dailyAPAP 1000 mg tidtramado l 25 mg bidtizanid ine 4 mg bidprednis one 10 mg dailyPT/OT /PM&R prnwill monitor Atrial fibrillation 4943 6004 I48.0 continue apixaban 2.5 mg bid Gastroesop hageal reflux disease without esophagitis 735367627 K21.9 omeprazole 40 mg bidcontinu e zofran 4 mg q6 prn Edema 866850893 R60.0 continue furosemide 40 mg dailyconti nue metolazone 2.5 mg daily on , , Eczema 05657917 L30.9 triamcinol one 0.1 % cream BID Dyspnea 410836855 R06.00 continue albuterol inhaler prn for shortness of breath Osteoarthritis 647098519 M15.0 lidocaine patch right shoulder.f entanyl 50 mcg patch q72 hrAPAP 1000 mg tidtramado l 25 mg bid prnglucosa mine 500 mg tid Chronic neck pain 719259 6512 107 M54.2 continue gabapentin 100 mg BID Neuropathy 256473227 G62 .9 continue gabapentin 100 mg BID. 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 [id number] NELDA MANSFIELD [address] [address] 11/26/2023 18:58:29 12/01/2023 10:07:02 Pain of left heel 4132685197 850893 M79.672 skin prep to bilateral heels BIDoff load heels on pillow when in bedmonitor for worsening sx.Risk factor discussed diabetes ,immobilit y, age [id number] NELDA MANSFIELD [address] [address] 12/14/2023 08:12:26 12/17/2023 13:25:50 Eczema 91754250 L30.9 bilateral lower extremitie s rash with scattered patches dry and redhx chronic edema, there is potential for weeping/oo zingtriamc inolone 0.1 % cream BIDmoistur izes legs daily Pain in right heel 92260 32113 864640 M79.671 right heel red and boggywill add skin prep BIDoffload heels when in bedwear socks with shoes Neuropathy 750869121 G62 .9 reports increasing bilateral leg painwill increase gabapentin to 200 mg BID and re assess for inprovemen t. [id number] NELDA MANSFIELD [address] [address] 01/12/2024 12:10:02 01/13/2024 16:55:18 Easy bruising 387946060 R58 reddish mid upper chest bruising, skin intactshe is noted with scattered bruising on shoulder as well.she takes eliquis and prednisone , diuretic dailywill continue to monitor.wi ll check iron studies and VIT D on next lab day. Hypothyroidism 31963061 E03.8 continue levothyrox ine 175 mcgTSH now 1.74contin ue to monitor. [id number] MD KAREEM Whitaker [place] [address] [place], [place] [address] 02/01/2024 21:46:09 02/17/2024 11:18:25 Chronic pain 96321564 G89.29 Remains at baseline.C ontinue fentanyl patch 50 mcg q 72 hrs, salonpas patch to right shoulder qd, APAP 1000 mg TID, tramadol 25 mg BID, tizanidine 2 mg BID, and prednisone 10 mg qd.Continu e rehab as able.Monit or sxs. 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 Type 2 russel betes mellitus 23581126 E11.9 Last HgA1C 7.6 in 03/2022.Sug ars in adequate control on diet control with occ. SSI.Monito r fingerstic ks TID, due for recheck of HgA1C, forgot to order. Gastroesop hageal reflux disease without esophagitis 643928592 K21.9 No current sxs.Contin ue omeprazole 40 mg BID.Monito r sxs Hypothyroidism 23571929 E03.8 TSH WNL.Contin ue levothyrox ine 225 mcg qdMonitor TSH yearly. Edema 443723890 R60.0 Marked tonight.Co ntinue furosemide 40 mg qd and metolazone 2.5 mg qd on T, , SaMonitor sxs. Eczema 18225588 L30.9 Much improved.C ontinue triamcinol one 0.1 % cream BID and house moisturize r qdMonitor Neuropathy 635520936 G62 .89 Gabapentin was increased to 200 mg BID on 12/14/23Som e improvemen t since then.Leonora nue other pain meds as above also.Monit or. [id number] ONEYDA BROWN, MIKIE [facility] [address] [place] [address] 02/18/2024 11:02:37 02/20/2024 09:33:35 Edema 547913575 R60.0 Suspecting more may be going on, [...] nFurther work up as indicated Chronic pain 36705116 G8 9.29 Remains at baseline.C ontinue fentanyl patch 50 mcg q 72 hrs, salonpas patch to right shoulder qd, APAP 1000 mg TID, tramadol 25 mg BID, tizanidine 2 mg BID, and prednisone 10 mg qd.Continu e rehab as able.Monit or sxs. Mixed anxi ety and depressive disorder 720821932 F41.8 Mood goodContin ue bupropion SR 150 mg qd and mirtazapin e 7.5 mg qhsMonitor mood.Psych follows Atrial fibrillation 4943 6004 I48.0 Rate remains in good control on no rate controllin g meds.Leonora nue eliquis 2.5 mg BID for AC.Monitor HR and bleeding risk. Type 2 russel betes mellitus 34165452 E11.9 Last HgA1C 7.6 in 03/2022.Sug ars in adequate control on diet control with occ. SSI.Monito r fingerstic ks TID, due for recheck of HgA1C, forgot to order. Gastroesop hageal reflux disease without esophagitis 011078258 K21.9 No current sxs.Contin ue omeprazole 40 mg BID.Monito r sxs Hypothyroidism 92889751 E03.8 TSH WNL.Contin ue levothyrox ine 225 mcg qdMonitor TSH yearly. Eczema 09892660 L30.9 Much improved.C ontinue triamcinol one 0.1 % cream BID and house moisturize r qdMonitor Neuropathy 865623992 G62 .89 Gabapentin was increased to 200 mg BID on 12/14/23Som e improvemen t since then.Leonora nue other pain meds as above also.Monit or. Candidiasis of mouth 797 35228 B37.0 Aranda plaque on tongue.Voi ce hoarse, ? if also esophageal Nystatin Swish and swallow 5 ml qid x 30 daysMainta in oral hygeine, brush tongue Dental caries 18635837 K 02.9 Planning for teeth # 29 and 31 extraction s.Will hold clearance for now until fluid balance figured out.Will hold basaglar insulin the night before procedureW ill hold eliquis the day before and the day of procedureD oes not appear abx. proph. is warrantedC ardiac risk currently low for dental extraction s. Hypokalemia 92101096 E87 .6 K 3.1 on labs 02/16/24Pla n as above [id number] NELDA MANSFIELD [facility] [address] [place] [phone] 02/23/2024 11:06:51 02/24/2024 15:45:14 Edema 608784346 R60.[address] xray did not show [...] restrictio nFurther work up as indicated Hypokalemia 08020693 E87 .6 02/21:Impro thomas 3.4continu e kcl 30 meq daily. Chronic pain 36744871 G8 9.29 Remains at baseline.C ontinue fentanyl patch 50 mcg q 72 hrs, salonpas patch to right shoulder qd, APAP 1000 mg TID, tramadol 25 mg BID, tizanidine 2 mg BID, and prednisone 10 mg qd.Continu e rehab as able.Monit or sxs. Mixed anxi ety and depressive disorder 991726784 F41.8 Mood goodContin ue bupropion SR 150 mg qd and mirtazapin e 7.5 mg qhsMonitor mood.Psych follows Atrial fibrillation 4943 6004 I48.0 Rate remains in good control on no rate controllin g meds.Leonora nue eliquis 2.5 mg BID for AC.Monitor HR and bleeding risk. Type 2 russel betes mellitus 48105595 E11.9 Last HgA1C 7.6 in 03/2022.Sug ars in adequate control on diet control with occ. SSI.Monito r fingerstic ks TID, due for recheck of HgA1C, forgot to order. Gastroesop hageal reflux disease without esophagitis 199300430 K21.9 No current sxs.Contin ue omeprazole 40 mg BID.Monito r sxs Hypothyroidism 04432838 E03.8 TSH WNL.Contin ue levothyrox ine 225 mcg qdMonitor TSH yearly. Eczema 96438465 L30.9 Much improved.C ontinue triamcinol one 0.1 % cream BID and house moisturize r qdMonitor Neuropathy 115815463 G62 .89 Gabapentin was increased to 200 mg BID on 12/14/23Som e improvemen t since then.Leonora nue other pain meds as above also.Monit or. Pneumonia 383510991 J18. 9 02/17: chest xray showed bilateral [...] rage fluid hydration. Vitamin D deficiency 347 52544 E55.9 12/06:Vit D level 20.4 - this is lower than previous levelwas taking cholecalci ferol 1000 unit daily -will increases to 50,000 unit weekly on thursday.patricia parkinson recheck in 2 months. [id number] BRYAN BERNARDO, NELDA HAYNES [address] [place] [address] 02/25/2024 10:46:10 02/29/2024 16:18:54 Edema 914286899 R60.[address] xray did not show any pleural effusion.E bethany worse, L>RBNP 107weight at 6 am fo4r 3 days then M-W-Bayrno-we igh today, increase frequency to 3x wk if weight truly upwrap legs dailywill change lasix to torsemide 20 mg daily.Cont inue metolazone 2.5 mg qd on , , [place] KCL 30 meq daily- monitor LabsBMP q thursday x 3 to trend K and kidney functionCo nsider fluid restrictio nFurther work up as indicated Hypokalemia 96608149 E87 .6 02/21:Impro thomas 3.4continu e kcl 30 meq daily. Chronic pain 09998053 G8 9.29 Remains at baseline.C ontinue fentanyl patch 50 mcg q 72 hrs, salonpas patch to right shoulder qd, APAP 1000 mg TID, tramadol 25 mg BID, tizanidine 2 mg BID, and prednisone 10 mg qd.Continu e rehab as able.Monit or sxs. Mixed anxi ety and depressive disorder 442741498 F41.8 Mood goodContin ue bupropion SR 150 mg qd and mirtazapin e 7.5 mg qhsMonitor mood.Psych follows Atrial fibrillation 4943 6004 I48.0 Rate remains in good control on no rate controllin g meds.Leonora nue eliquis 2.5 mg BID for AC.Monitor HR and bleeding risk. Type 2 russel betes mellitus 61193659 E11.9 Last HgA1C 7.6 in 03/2022.Sug ars in adequate control on diet control with occ. SSI.Monito r fingerstic ks TID, due for recheck of HgA1C, forgot to order. Gastroesop hageal reflux disease without esophagitis 100829879 K21.9 No current sxs.Contin ue omeprazole 40 mg BID.Monito r sxs Hypothyroidism 32778274 E03.8 TSH WNL.Contin ue levothyrox ine 225 mcg qdMonitor TSH yearly. Eczema 16866517 L30.9 Much improved.C ontinue triamcinol one 0.1 % cream BID and house moisturize r qdMonitor Neuropathy 137406284 G62 .89 Gabapentin 200 mg BIDreports bilateral lower extremity pain- noted with swelling >in LLE than RLE-awaiti ng ultrasound to r/o DVT. due to be done today at 3 pmPt willing to try diclofenac gel for lower extremity to see it helps with pain. Pneumonia 212066632 J18. 9 02/17: chest xray showed bilateral [...] rage fluid hydration. Vitamin D deficiency 347 12801 E55.9 12/06:Vit D level 20.4 - this is lower than previous levelwas taking cholecalci ferol 1000 unit daily -will increases to 50,000 unit weekly on thursday.patricia parkinson recheck in 2 months. [id number] NELDA MANSFIELD [address] [address] 02/29/2024 18:11:58 03/01/2024 13:10:29 Pneumonia 179592018 J18.9 breathing is easy and unlabored: chest xray showed bilateral airspace opacities. No pleural effusion.c ontinue augmentin 500 mg TID until 03/04 and azithromyc in 500 mg for 1 day and then continue 250 mg for 4 days .check VS q shiftencou rage fluid hydration. [id number] NELDA MANSFIELD [address] [address] 03/16/2024 10:26:05 03/18/2024 10:30:33 Pneumonia 774659491 J18.9 completed abxbreathi ng is easy and unlabored Mixed anxi ety and depressive disorder 346917454 F41.8 Mood is stable.Con tinue:bupr opion SR 150 mg qdmirtazap ine 7.5 mg qhs-03/14 seen by psych with recommenda tion for GDR for mirtazapin e now ordered at 5 mg hs. patient in agreement. Monitor mood. [id number] NELDA MANSFIELD [address] [place] [address] 03/23/2024 11:08:46 03/31/2024 14:26:29 Edema 919138311 R60.0 Marked tonight.Co ntinue furosemide 40 mg qd and metolazone 2.5 mg qd on T, Th, SaMonitor sxs. Chronic pain 14515815 G8 9.29 Remains at baseline.C ontinue fentanyl patch 50 mcg q 72 hrs, salonpas patch to right shoulder qd, APAP 1000 mg TID, tramadol 25 mg BID, tizanidine 2 mg BID, and prednisone 10 mg qd.Continu e rehab as able.Monit or sxs. Mixed anxi ety and depressive disorder 225600029 F41.8 Continue bupropion SR 150 mg qd and mirtazapin e 7.5 mg qhsMonitor mood.Psych follows Atrial fibrillation 4943 6004 I48.0 Continue eliquis 2.5 mg BID for AC.Monitor HR and bleeding risk. Type 2 russel betes mellitus 06991282 E11.9 continue lantus 15 units at HSmonitor FS Gastroesop hageal reflux disease without esophagitis 915834424 K21.9 No current sxs.Contin ue omeprazole 40 mg BID.Monito r sxs Hypothyroidism 62451230 E03.8 TSH WNL.Contin ue levothyrox ine 175 mcgMonitor TSH yearly. Eczema 30686925 L30.9 Much improved.C ontinue triamcinol one 0.1 % cream BID and house moisturize r qdMonitor Neuropathy 513866786 G62 .89 Gabapentin 200 mg BIDMonitor . Hypokalemia 64456542 E87 .6 continue kcl 30 meq daily. Vitamin D deficiency 347 78312 E55.9 5/13 Vit D level 20.4 - this is lower than previous levelwas taking cholecalci ferol 1000 unit daily-incr eased to 50,000 unit weekly on thursday.patricia parkinson recheck vit d level on next lab day. [id number] NELDA MANSFIELD [facility] [address] [place] [place] [address] 03/29/2024 10:37:33 03/31/2024 14:35:20 Mixed anxiety and depressive disorder 287339781 F41.8 Mood is stable todayConti nue:buprop ion SR 150 mg qdwith trial gdr off mirtazapin e 7.5 mg qhs-decrea sed to 3.75 mgMonitor mood, patient will report unwanted side effects of gdr such as increased anxiety, restlessne ss, insomnia [id number] NELDA MANSFIELD [facility] [address] [place] [address] 04/26/2024 14:44:48 05/02/2024 13:49:37 Cellulitis of left lower limb 7134194461 5530655 L03.116 Met sepsis criteria due to 101.5 ? ? ?F, WBC 19.2recent ly started on Keflex for left lower extremity cellulitis on 04/15.CT chest without any focal findings of pneumonia. s/p iv van and zosyndisch arge on take Augmentin till 04/24/24 Extravasat ion of intravenous contrast medium 422530663 T80.818A In acute care found to have left arm swelling tx conservati vely with warm compress and elevation. Atrial fibrillation 4943 6004 I48.0 Continue eliquis 2.5 mg BID for AC.Monitor HR and bleeding risk. Hypothyroidism 27443161 E03.8 TSH WNL.Contin ue levothyrox ine 175 mcgMonitor TSH yearly. Gastroesop hageal reflux disease without esophagitis 155262314 K21.9 No current sxs.Contin ue omeprazole 40 mg BID.Monito r sxs Osteoarthritis 717931966 M15.0 lidocaine patch right shoulder.f entanyl 50 mcg patch q72 hrAPAP 1000 mg tidtramado l 25 mg bid prnglucosa mine 500 mg tid Type 2 russel betes mellitus 17745813 E11.9 continue lantus 15 units at [facility] FS [id number] NELDA MANSFIELD [address] [place] [address] 05/02/2024 09:59:17 05/03/2024 11:50:42 Cellulitis of left lower limb 5215396518 2026436 L03.116 05/02: see hpiLLE edema and pain, [...] 04/24/24 Extravasat ion of intravenous contrast medium 661167057 T80.818A In acute care found to have left arm swelling tx conservati vely with warm compress and elevation. Atrial fibrillation 4943 6004 I48.0 Continue eliquis 2.5 mg BID for AC.Monitor HR and bleeding risk.repor table sx reviewed. Hypothyroidism 30532677 E03.8 TSH WNL.Contin ue levothyrox ine 175 mcgMonitor TSH yearly. Gastroesop hageal reflux disease without esophagitis 172215194 K21.9 No current sxs.Contin ue omeprazole 40 mg BID.Monito r sxs Osteoarthritis 188698365 M15.0 fentanyl 50 mcg patch q72 hrAPAP 1000 mg tidtramado l 25 mg bid prnglucosa mine 500 mg tid Type 2 russel betes mellitus 32897558 E11.9 continue lantus 15 units at [facility] [id number] NELDA MANSFIELD [address] [place] [address] 05/05/2024 10:15:43 05/10/2024 15:49:53 Cellulitis of left lower limb 5093157712 4557227 L03.116 05/05: Ultrasound results reviewed, negative for [...] reviewed. Gastroesop hageal reflux disease without esophagitis 651208800 K21.9 stableNo current sxs.Contin ue omeprazole 40 mg BID.Monito r sxs Osteoarthritis 782532664 M15.0 stablefent anyl 50 mcg patch q72 hrAPAP 1000 mg tidtramado l 25 mg bid prn Type 2 russel betes mellitus 25529402 E11.9 continue lantus 15 units at [facility] FS 332604 NELDA MANSFIELD [address] [place] [address] 05/09/2024 11:51:06 05/10/2024 16:10:25 Cellulitis of left lower limb 5624823374 5740606 L03.116 resolved Atrial fibrillation 4943 6004 I48.0 stable without sx.Continu e eliquis 2.5 mg BID for AC.Monitor HR and bleeding risk.repor table sx reviewed. Gastroesop hageal reflux disease without esophagitis 779127632 K21.9 stableNo current sxs.Contin ue omeprazole 40 mg BID.Monito r sxs Osteoarthritis 004322132 M15.0 stablefent anyl 50 mcg patch q72 hrAPAP 1000 mg tidtramado l 25 mg bid Type 2 russel betes mellitus 37688913 E11.9 continue lantus 15 units at [facility] FS- mainly under 200sshe is without hypo/hyper glucose sx. Edema 393364380 R60.0 BLE decreased edema note, she is wearing wilma wrapsconti nue torsemide 20 mg daily and metolazone as ord. [id number] NELDA MANSFIELD [facility] [address] [place] [address] 05/12/2024 11:47:54 05/13/2024 11:46:56 Atrial fibrillation 35085459 I48.0 stable without sx.Continu e eliquis 2.5 mg BID for AC.Monitor HR and bleeding risk.repor table sx reviewed. Gastroesop hageal reflux disease without esophagitis 939704726 K21.9 stableNo current sxs.Contin ue omeprazole 40 mg BID.Monito r sxs Osteoarthritis 045399123 M15.0 stablefent anyl 50 mcg patch q72 hrAPAP 1000 mg tidtramado l 25 mg bid Type 2 russel betes mellitus 10695774 E11.9 continue lantus 15 units at [facility] FS- mainly under 200sshe is without hypo/hyper glucose sx. Edema 954640089 R60.0 BLE decreased edema note, she is wearing wilma wrapsconti nue torsemide 20 mg daily and metolazone as ord. Spinal roni nosis of lumbar region 08345307 M48.062 fentanyl patch 50 mcgprednis one 10 mg daily - taper to start 05/16/24de creasing by 1 mg per week. [id number] NELDA MANSFIELD [address] [address] 05/16/2024 08:25:38 05/18/2024 09:23:51 Atrial fibrillation 36921908 I48.0 stable without sx.Continu e eliquis 2.5 mg BID for AC.Monitor HR and bleeding risk.repor table sx reviewed. Gastroesop hageal reflux disease without esophagitis 444469244 K21.9 stableNo current sxs.Contin ue omeprazole 40 mg BID.Monito r sxs Osteoarthritis 594892687 M15.0 stablefent anyl 50 mcg patch q72 hrAPAP 1000 mg tidtramado l 25 mg bid Type 2 russel betes mellitus 66209351 E11.9 continue lantus 15 units at [facility] FS- mainly under 200sshe is without hypo/hyper glucose sx. Edema 464262797 R60.0 BLE decreased edema note, she is wearing wilma wrapsconti nue torsemide 20 mg daily and metolazone as ord. Spinal roni nosis of lumbar region 67080216 M48.062 fentanyl patch 50 mcgprednis one 10 mg daily - taper to start 05/16/24de creasing by 1 mg per week. Itching of skin 65817904 0 L29.9 left shoulder is without redness or rashencour aged to apply lotion dailywill start claritin 10 mg daily. [id number] NELDA MANSFIELD [address] [address] 05/19/2024 11:11:15 05/23/2024 15:12:03 Atrial fibrillation 41693823 I48.0 stable without sx.Continu e eliquis 2.5 mg BID for AC.Monitor HR and bleeding risk.repor table sx reviewed. Gastroesop hageal reflux disease without esophagitis 133002279 K21.9 stableNo current sxs.Contin ue omeprazole 40 mg BID.Monito r sxs Osteoarthritis 519581308 M15.0 stablefent anyl 50 mcg patch q72 hrAPAP 1000 mg tidtramado l 25 mg bid Type 2 russel betes mellitus 39208661 E11.9 continue lantus 15 units at [facility] FS- mainly under 200sshe is without hypo/hyper glucose sx. Edema 708120854 R60.0 BLE decreased edema note, she is wearing wilma wrapsconti nue torsemide 20 mg daily and metolazone as ord. Spinal roni nosis of lumbar region 63123621 M48.062 fentanyl patch 50 mcgprednis one 10 mg daily - taper to start 05/16/24de creasing by 1 mg per week. Itching of skin 36449953 0 L29.9 left shoulder is without redness or rashencour aged to apply lotion dailywill start claritin 10 mg daily. [id number] NELDA MANSFIELD [address] [address] 05/23/2024 07:53:51 05/24/2024 13:52:57 Atrial fibrillation 76268960 I48.0 stable without sx.Continu e eliquis 2.5 mg BID for AC.Monitor HR and bleeding risk.repor table sx reviewed. Gastroesop hageal reflux disease without esophagitis 648941518 K21.9 stableNo current sxs.Contin ue omeprazole 40 mg BID.Monito r sxs Osteoarthritis 053724826 M15.0 stablefent anyl 50 mcg patch q72 hrAPAP 1000 mg tidtramado l 25 mg bid Type 2 russel betes mellitus 48978197 E11.9 continue lantus 15 units at [facility]- mainly under 200sshe is without hypo/hyper glucose sx. Edema 267551802 R60.0 BLE decreased edema note, she is wearing wilma wrapsconti nue torsemide 20 mg daily and metolazone as ord. Spinal roni nosis of lumbar region 32590727 M48.062 fentanyl patch 50 mcgprednis one 10 mg daily - taper to start 05/16/24de creasing by 1 mg per week. Itching of skin 47496672 0 L29.9 left shoulder is without redness or rashencour aged to apply lotion dailywill start claritin 10 mg daily. 112625 NELDA MANSFIELD [address] [place] [address] 05/27/2024 07:54:05 05/30/2024 13:39:41 Atrial fibrillation 15058372 I48.0 stable without sx.Continu e eliquis 2.5 mg BID for AC.Monitor HR and bleeding risk.repor table sx reviewed. Gastroesop hageal reflux disease without esophagitis 180920660 K21.9 stableNo current sxs.Contin ue omeprazole 40 mg BID.Monito r sxs Osteoarthritis 121391530 M15.0 stablefent anyl 50 mcg patch q72 hrAPAP 1000 mg tidtramado l 25 mg bid Type 2 russel betes mellitus 89846197 E11.9 continue lantus 15 units at [facility]- mainly under 200sshe is without hypo/hyper glucose sxwill need updated A1c as we taper off prednisone Edema 004756630 R60.0 improved with compressio n stockings. continue torsemide 20 mg daily and metolazone as ord. Spinal roni nosis of lumbar region 61192985 M48.062 fentanyl patch 50 mcgprednis one 10 mg daily - tapering off 1 mg per weekdecrea sing by 1 mg per week. Itching of skin 29386487 0 L29.9 stableleft shoulder is without redness or rashencour aged to apply lotion dailywill start claritin 10 mg daily. [id number] NELDA MANSFIELD [facility] [address] [place] [address] 06/02/2024 09:27:55 06/06/2024 12:53:38 Atrial fibrillation 33910104 I48.0 stable without sx.Continu e eliquis 2.5 mg BID for AC.Monitor HR and bleeding risk.repor table sx reviewed. Gastroesop hageal reflux disease without esophagitis 873114793 K21.9 reports hypogastri c non radiating pain+ nausea no vomitinNo current sxs.Contin ue omeprazole 40 mg BID.Monito r sxs Osteoarthritis [id number] M15.0 stablefent anyl 50 mcg patch q72 hrAPAP 1000 mg tidtramado l 25 mg bid Type 2 russel betes mellitus [id number] E11.9 stablecont inue lantus 15 units at [facility]- mainly under 200sshe is without hypo/hyper glucose sx Edema 018708168 R60.0 improved with compressio n stockings. continue torsemide 20 mg daily and metolazone as ord. Blister of lower leg without infection [id number] S80.822A initially fluid filled with clear liquidnow burst-anais ent recently tx for cellulitis , I prefer wound to be tx with and antispetic nursing ord to cleanse with NS 0r warm soap and water dialy, paint with betadine with non adhesive dressing and kerlix. [id number] NELDA MANSFIELD [place] [address] [place] [address] 06/06/2024 08:41:07 06/07/2024 11:48:57 Atrial fibrillation [id number] I48.0 stable without sx.Continu e eliquis 2.5 mg BID for AC.Monitor HR and bleeding risk.repor table sx reviewed. Gastroesop hageal reflux disease without esophagitis [id number] K21.9 No current sxs.Contin ue omeprazole 40 mg BID.Monito r sxs Osteoarthritis [id number] M15.0 stablefent anyl 50 mcg patch q72 hrAPAP 1000 mg tidtramado l 25 mg bid Type 2 russel betes mellitus 47556452 E11.9 stablecont inue lantus 15 units at [facility]- mainly under 200sshe is without hypo/hyper glucose sx Edema 791021809 R60.0 continue torsemide 20 mg daily and metolazone as ord. Blister of lower leg without infection 63020956 S80.822A initially fluid filled with clear liquidnow burst-anais ent recently tx for cellulitis , I prefer wound to be tx with and antispetic as well.adriani asia ord to cleanse with NS 0r warm soap and water dialy, paint with betadine cover with xeroform dressing and kerlix. [id number] NELDA MANSFIELD [address] [address] 06/16/2024 11:11:20 06/21/2024 11:07:01 Edema 674745972 R60.0 continue torsemide 20 mg daily and metolazone as ord. Blister of lower leg without infection 20139661 S80.822A initially fluid filled with clear liquidnow [...] recs to continue current tx ords. Dysuria 32213907 R30.0 send urine for UA with C&Swater encouraged to flush out toxins Fatigue 10194830 R53.83 recheck bmp, cbc, TSH,iron , ammonia and Vit B & D levels on 06/17 [id number] NELDA MANSFIELD [address] [address] 06/27/2024 12:04:26 06/30/2024 11:21:08 Cellulitis of right lower limb [id number] 2286593 L03.115 2/2 diabetes and decreased skin integrity from venous stasis and chronic prednisone usetx with IV ancef in acute carecomple cassie po abx keflex on 06/24follo wed by Wound Venous ins ufficiency of leg 428813965 I87.2 chronic BLE edema/RLE acute DVT /right almanza erupted skin blisterdis cussed with nursing, continue eliquis and wound tx with xeroform Acute deep venous thrombosis of femoral vein 7429119549 57678 I82.419 non occlusive/ RLEon eliquis 5 mg BID Chronic heart failure 48 488798 I50.9 acute on chronic/el evated BNP tx with IV lasixCXR showed interstiti al markings but difficult to interpret due to underlying fibrosisco ntinue torsemide and metolazone monitor labs Edema 447860672 R60.0 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 [id number] [facility] [address] [place] [address] [place] [address] 06/30/2024 08:36:09 07/01/2024 12:09:02 Cellulitis of right lower limb [id number] 0277116 L03.115 completed abxdenies any pain, per nsg no erythema or warmth Venous ins ufficiency of leg 018048906 I87.2 chronic BLE edema/RLE acute DVT /right almanza erupted skin blisterdis cussed with nursing, continue eliquis and wound tx Acute deep venous thrombosis of femoral vein 6314961166 29737 I82.419 non occlusive/ RLEon eliquis 5 mg BID Chronic heart failure 48 949622 I50.9 acute on chronic/el evated BNP tx with IV lasixCXR showed interstiti al markings but difficult to interpret due to underlying fibrosisco ntinue torsemide and metolazone baseline crackles with hx of pulm. 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 Wound 665705498 T14.90 XA see pi2/2 to erupted blisterfol lowed by wound MD with recent changes to oil emulsion.r leticia provided why tx was changedwil l resume previous tx order of NS and betadine per patient request and have wound re evaldiscus sed with nursing [id number] NEL[facility]ANS[facility] [address] [place] [address] [place] [address] 07/04/2024 10:17:37 07/05/2024 14:29:23 Venous insufficiency of leg 656828414 I87.2 stablechro gavin BLE edema/RLE acute DVT /right almanza erupted skin blisterdis cussed with nursing, continue eliquis and wound tx Acute deep venous thrombosis of femoral vein 7631365485 78223 I82.419 non occlusive/ RLEon eliquis 5 mg BID Chronic heart failure 48 820340 I50.9 acute on chronic/el evated BNP tx with IV lasixCXR showed interstiti al markings but difficult to interpret due to underlying fibrosisco ntinue torsemide and metolazone baseline crackles with hx of pulm. fibrosismo nitor labs Edema 833345188 R60.0 chronic/st abl;e with no increase on exam todayconsi jeff referral to lymphedema clinic - she often c/o pain, she is at increase risk for recurrent infection. Wound 675903053 T14.90 XA see pi2/2 to erupted blisterfol lowed by wound MD with recent changes to oil emulsion.r leticia provided why tx was changedwil l resume previous tx order of NS and betadine per patient request and have wound re evaldiscus sed with nursing [id number] NELDA MANSFIELD [address] [place] [address] [facility] [place] [place] [address] 07/07/2024 08:16:53 07/08/2024 13:27:39 Venous insufficiency of leg 620501683 I87.2 stablechro gavin BLE edema/RLE acute DVT /right almanza erupted skin blisterdis cussed with nursing, continue eliquis and wound txseen by wound MD with new order changes made in pcc. Acute deep venous thrombosis of femoral vein 4843007343 13956 I82.419 non occlusive/ RLEon eliquis 5 mg BID Chronic heart failure 48 852861 I50.9 continue torsemide and metolazone baseline crackles with hx of pulm. fibrosismo nitor labs Edema 779754393 R60.0 chronic/st ableconsid er referral to lymphedema clinic - she often c/o pain, she is at increase risk for recurrent infection. [id number] NELDA MANSFIELD [address] [place] [address] [facility] [place] [address] 07/11/2024 10:40:35 07/12/2024 12:07:39 Venous insufficiency of leg 498354149 I87.2 stablechro gavin BLE edema/RLE acute DVT /right almanza erupted skin blisterdis cussed with nursing, continue eliquis and wound txfollowed by wound MD/continu e current tx orders. Acute deep venous thrombosis of femoral vein 9859366405 70931 I82.419 non occlusive/ RLEon eliquis 5 mg BID Chronic heart failure 48 362774 I50.9 baseline BLE edema, otherwise no worsening edema notedconti nue torsemide and metolazone baseline crackles with hx of pulm. fibrosismo nitor labs Edema 180881698 R60.0 chronic/st ableconsid er referral to lymphedema clinic - she often c/o pain, she is at increase risk for recurrent infection. 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 Mood is stable todayConti nue:buprop ion [...] Member ID Guarantor Name 07/07/2024 2 [place] [facility] [place] [id number] [place] Alcar[place] 07/07/2024 1 [place]IC[place] B[place]: [facility] [place] Alcar[place] [id number] [place] Alcar[place] 07/11/2024 2 [place] [facility] [place]car[place] [id number] [place] Alcaraz 07/11/2024 1 [place] [facility] [place]car[place] [id number] [place] Alcar[place] 07/15/2024 2 [place] [facility] [place]car[place] [id number] [place] Alcar[place] 07/15/2024 1 [place] [facility] [place] Alcar[place] [id number] [place] Alcar[place] 07/18/2024 2 [place] [facility] [place] Alcar[place] [id number] [place] Alcar[place] 07/18/2024 1 [place] B[place] [employer] [facility] [place] Rodneyell [id number] [place] Alcaraz 07/21/2024 2 [place] [facility] [place] Alcar[place] [id number] [place] Alcar[place] 07/21/2024 1 [place]: [facility] [place] Rodneyell [id number] [place] Alcaraz Notes Date Note Type Note [...] and history of PE NELDA MANSFIELD [address] [facility], [address], [place], [address], [facility] 07/07/2024 15:22:09 07/11/2024 text/html [place] is an [...] and history of PE NELDA MANSFIELD [address] [facility] [facility], [address], [place], [address], [facility] 07/11/2024 14:31:09 07/15/2024 text/html This is an 84 yr old women seen for acute rounding visit, she is reporting dysuria for a few days and states sx are similar to past UTI complaints. she denies any frequency or urgency, she has been afebrile. NELDA MANSFIELD [address] [facility], [address], [place], [address], [facility] 07/15/2024 12:35:05 07/18/2024 text/html This is an 84 yr old women seen for acute rounding visit for follow for dysuria. Recent UA negative for infection, pt updated on results, she now reports that she is no longer experiencing sx.she encouraged to increase fluid preferably water. NELDA MANSFIELD [address] [facility], [address], [place], [address], [facility] 07/18/2024 12:28:32 07/21/2024 text/html This is an 84 yr old women seen for acute rounding visit. She has been at baseline in NAD, today she is doing ok, there are no acute concerns. 07/21/24 Tested negative for covid NELDA MANSFIELD [address] [facility], [address], [place], [address], [facility] 07/21/2024 15:46:48 OBGyn Episode No OBEpisode recorded.
[2024-10-31 06:35] LABS: Anion Gap 14 (12-20); Blood Urea Nitrogen 22 mg/dL (9-16); Carbon Dioxide 26 mmol/L (22-29); Chloride 106 mmol/L (96-108); Estimated Glomerular Filt Rate > 60; Glucose Random 67 mg/dL (60-115); Potassium 3.5 mmol/L (3.3-5.1); Sodium 142 mmol/L (135-145)
[2024-10-31 06:48] LABS: Basophils Absolute Auto 0.1 X10*3/uL (0.0-0.2); Basophils Percent Auto 0.8 % (0-2); Eosinophils Absolute Auto 0.2 X10*3/uL (0.0-0.4); Eosinophils Percent Auto 2.2 % (0-4); Hematocrit 32.7 % (37.0-47.0); Hemoglobin 10.2 g/dl (12.0-16.0); Imm Gran Abs Auto 0.06 X10*3/uL (0.00-0.03); Imm Gran Pct Auto 0.7 % (0.0-0.4); Lymphocytes Absolute Auto 1.8 X10*3/uL (1.2-4.9); Lymphocytes Percent Auto 19.4 % (20-40); Mean Corpuscular HGB Conc 31.2 g/dl (31.0-35.0); Mean Corpuscular Hemoglobin 29.9 pg (27.0-33.0); Mean Corpuscular Volume 95.9 fL (80.0-98.0); Mean Platelet Volume 9.7 fL (9.4-12.3); Monocytes Percent Auto 11.5 % (2-11); Neutrophils Absolute Auto 5.9 x10*3/uL (2.0-8.3); Neutrophils Percent Auto 65.4 % (45-73); Platelet Count 266 X10*3/uL (160-400); Red Blood Count 3.41 X10*6/uL (4.20-5.50); White Blood Count 9.1 X10*3/uL (4.8-10.8)
== END 2024-10-31 05:50 | disposition home or self-care (01) ==
LOC: HO.MMNH3L 05:49
PROVIDERS: Visit Provider Family Medicine
DX: I10 Essential (primary) hypertension (principal)
CPT/HCPCS: 36415; 80048; 85025

== ENCOUNTER 2024-10-31 11:55 | Outpatient (REF) | payer MEDICARE, SELFPAY ==
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
== END 2024-10-31 11:56 | disposition home or self-care (01) ==
LOC: HO.SH 11:55
DX: Z13.89 Encounter for screening for other disorder (principal)

== ENCOUNTER 2024-11-02 09:30 | Outpatient (REF) | payer MEDICARE, SELFPAY ==
--- OUTSIDE RECORDS SUMMARY | 2024-11-02 10:39 | XMS_ITS | Data Portability ---
Author Organization [place] - [facility], Main Office Address [address] [facility], [address] [place] [address] Care Team Providers Care Document Control Associate Name Role Phone KAREEM HAYNES 3RD FLOOR OTHER [phone] Assessment Encounter Date Assessment Date Assessment LastModified [...] Address Organization Details Recorded Time Severe pain 10361519 Active 2021 back pain BRYANNA URBANO, MIKIE [address] [facility], [address], [place], [address], [facility] 13:15:21 Adult failure to thrive syndrome 960183596 Active 2021 BRYANNA URBANO NP [address], [address], [place], [address], [facility] 2 13:15:35 Fall Active 2021 BRYANNA URBANO NP [address], [address], [place], [address], [facility] 2 13:15:44 Gastroes ophageal reflux disease without esophagi tis 487978291 Active 2021 BRYANNA URBANO NP [address], [place], [address], [facility] 2 13:16:01 Osteoart hritis 433784698 Active 2021 BRYANNA URBANO NP [address] [facility], [address], [place], [address], [facility] 2 13:16:10 Mixed anxiety and depressi ve disorder 111206421 Active 2021 BRYANNA URBANO NP [address] [facility], [address], [place], [address], [facility] 3 10:40:32 Hypothyr oidism 57992188 Active 2021 BRYANNA URBANO NP [address] [facility], [address], [place], [address], [facility] 2 13:16:28 Osteopor osis 70720214 Active 2021 BRYANNA URBANO NP [address], [address], [place], [address], [facility] 2 13:17:10 Atrial fibrilla tion 39394959 Active 2021 BRYANNA URBANO, MIKIE [address], [address], [place], [address], [facility] 2 14:21:30 Hyperlip idemia 15563865 Active 2021 BRYANNA URBANO, [employer] [address] [facility], [address], [place], [address], [facility] 2 14:21:52 Spinal stenosis of lumbar region 35270722 Active 2021 Ana Damon MD [address] [facility], [address], [place], [address], [facility] 2 19:13:30 Edema 973569982 Active 2021 BRYANNA URBANO, [employer] [address], [address], [place], [address], [facility] 2 13:22:11 Hypokale doretha 20474938 Active 2021 Ana Damon MD [address] [facility], [address], [place], [address], [facility] 2 23:44:02 Pancreat itis 03562493 Active 2021 BRYANNA URBANO, [employer] [address] [facility], [address], [place], [address], [facility] 2 14:58:02 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 276917152 Active 2021 Ana Damon MD [address], [place], [address], [facility] 2 14:42:49 Contusio n 773224971 Active 2021 right buttock BRYANNA YOLIE, [employer] [address] [facility], [address], [place], [address], [facility] 3 12:37:52 COVID-19 023054705 Active 2021 BRYANNA YOLIE, [employer] [address] [facility], [address], [place], [address], [facility] 2 10:44:44 Dislocat ion of shoulder joint 874617499 Active 2022 Margarette Awad NP [address] [facility], [address], [place], [address], [facility] 3 11:28:04 Chronic neck pain 04077903451 07 Active 2022 Ana Damon MD [address], [place], [address], [facility] 3 21:36:27 Nausea 072929710 Active 2022 Ana Damon MD [address], [place], [address], [facility] 3 21:36:31 Type 2 diabetes mellitus 56585826 Active 2022 Ana Damon MD [address], [place], [address], [facility] 3 20:16:36 Contusio n of face 593907092 Active 2022 BRYANNA URBANO NP [address], [address], [place], [address], [facility] 3 12:37:45 Urinary tract infectio us disease 53909495 Active 2023 NELDA MANSFIELD [address], [place], [address], [facility] 4 14:59:19 Dyspnea 132004791 Active 2023 NELDA MANSFIELD [address], [place], [address], [facility] 4 22:03:33 Neuropat hy 950632497 Active 2023 NELDA MANSFIELD [address], [place], [address], [facility] 4 22:17:58 Constipa tion 88717731 Active 2023 NELDA MANSFIELD [address], [place], [address], [facility] 4 22:22:39 Chronic pain 92102341 Active 2023 Ana Damon MD [address], [place], [address], [place] [facility] 4 10:49:48 Cellulit is 111438238 Active 2023 NELDA MANSFIELD [address] [facility], [address], [place], [address], [facility] 4 09:09:15 Manav contreras 82274587 Completed 202306/06/2024 on predniso ne 10 mg daily NELDA MANSFIELD [address] [place] [address], [address], [place], [address], [facility] 4 15:48:25 Venous insuffic iency of leg 716261285 Active 2023 NELDA MANSFIELD [address] [place] [address], [address], [place], [address], [facility] 4 02:16:11 Chronic heart failure 24963012 Active 2023 NELDA MANSFIELD [address] [place] [address], [address], [place], [address], [facility] 4 02:24:16 Problem Notes None recorded. Medical Equipment None Reported. Allergies Allergen ID Allergen Name Allergen Category Reaction Reaction Severity Criticality Documentation Date Start Date Code Code System Note Provider Name and Address Organization Details Recorded Time 16609 amitripty line medicatio n Not available Not available Not available 09/25/2021 704 RxNorm Not Available Not Available Not Available 44802 morphine medicatio n Not available Not available Not available 09/25/2021 7052 RxNorm Not Available Not Available Not Available 31745 oxycodone medicatio n Not available Not available Not available 09/25/2021 7804 RxNorm Not Available Not Available Not Available 17535 Demerol medicatio n Not available Not available Not available 09/25/2021 89572 1 RxNorm Not Available Not Available Not Available 66314 Phenergan medicatio n Not available Not available Not available 09/25/2021 38252 8 RxNorm Not Available Not Available Not Available 73794 lactose food,medi cation Not available Not available [...] DateTime 07/07/2024 162.56 cm NELDA MANSFIELD [address] [facility], [address], [place], [address], [facility] 07/07/2024 08:58:12 Date Recorded Body height Provider Name an d Address Organization Details Last Updated DateTime 07/11/2024 162.56 cm NELDA MANSFIELD [address] [place] [address], [address], [place], [address], [facility] 07/11/2024 14:23:34 Date Recorded Body height Heart rate Oxygen saturation Oxygen saturation in Arterial blood by Pulse oximetry Provider Name and Address Organization Details Last Updated DateTime 07/21/2024 162.56 cm 78 /min 95 % 95 % DEEPAK MANSFIELD[address], [address], [place], [address] , [facility] 07/21/2024 15:42:40 Social History Question Answer Notes LastModified by Organizat ion Details LastModified Time Tobacco Smoking Status Former Smoker can't remember when she quit Ana Damon MD [address] [facility] [facility] [address], [place], [address], [facility] 09/26/2021 19:09:18 Do You Have An Advance Directive? Yes Information not available 09/26/2021 What Is Your Level Of Alcohol Consumption? None Information not available 09/25/2021 What Is Your Code Status? DNR/DNI Information not available 09/25/2021 Where Do You Live? [facility]. Was Living With Son, But He Is Not Home During The Day. Information not available 05/29/2023 Legal Guardian? No Informati on not available 09/26/2021 Do You Have A Medical Power Of Curing Machine Operator? Yes Invoked Information not available 09/26/2021 What [...] adjuvanted, quadrivalent, PF 05/21/2022 completed Dena maza, [facility] 08/17/2023 10:49:52 Influenza, adjuvanted, quadrivalent, PF 03/04/2023 completed Dena maza [facility] 08/17/2023 10:50:06 Past Encounters Encounter ID Performer Location Encounter Start Date Encounter Closed Date Diagnosis/Indication Diagnosis SNOMED-CT Code Diagnosis ICD10 Code Diagnosis Note [id number] MIKIE DUONG [address] [facility] [place] [address] 09/25/2021 09:13:56 09/30/2021 13:45:49 Severe pain 68368367 R52 fentanyl patch 50 mcgdilaudi d 1 mg q4hr prnprednis one 10 mg dailyrepos ition prnhospice consult and admission Osteoporosis 85593266 M8 1.0 methotrexa te 2.5 len dronate 70 thursdaypred nisone 10 mg daily Osteoarthritis 930500980 M19.90 dilaudid 1 mg q4 hr prnfentany l 50 mcg patch Mixed anxi ety and depressive disorder 383489802 F41.8 wellbutrin xl 150 mg bid Hypothyroidism 63574823 E03.9 levothyrox ine 200 mcg daily Gastroesop hageal reflux disease without esophagitis 444836143 K21.9 omeprazole 40 mg daily Adult fail ure to thrive syndrome 853921451 R62.7 encourage po intake fall W19.XXXA PT OT eval and treatfall precaution sfrequent safety checks Atrial fibrillation 4943 6004 I48.91 eliquis 5 mg bidlasix 40 mg daily Hyperlipidemia 14275116 E78.5 atorvastat in 40 mg daily [id number] Ana Damon MD [facility] [address] [facility] [address] [place] [address] 09/26/2021 15:54:36 09/30/2021 14:03:56 Osteoporosis 73842123 M81.0 Will d/c alendronat e Osteoarthritis 860288502 M15.0 Unclear what she is on MTX for, if it's OA or pulmonary fibrosis.C ontinue methotrexa te 2.5 mg weekly.Chelsi n control as above. Mixed anxi ety and depressive disorder 966581949 F41.8 Continue wellbutrin xl 150 mg BID.Monito r mood. Hypothyroidism 87889981 E03.8 With elevated TSH, but nl FT4. Will leave dosing as is for now, [place]. since pt is transition ing to hospice.Co ntinue levothyrox ine 200 mcg qd.No further labs. Gastroesop hageal reflux disease without esophagitis 918778755 K21.9 Continue omeprazole 40 mg qd.Monitor sxs/ Adult fail ure to thrive syndrome 349766891 R62.7 Continue oral supplement s as able. Fall W19.XXXA Unable to participat e in rehab.Cont inue fall precaution s.Monitor for safety. Atrial fibrillation 4943 6004 I48.0 Rate in good control on no rate controllin g meds.Leonora nue eliquis 5 mg BID for AC.Monitor HR and bleeding risk Hyperlipidemia 44321619 E78.49 Will d/c atorvastat inNo further labs Spinal roni nosis of lumbar region 44816321 M48.062 With continued distress, unclear how much is pain and how much is behavioral .Will start roxanol 5 mg q 4 hrs scheduled and q 1 hr prn. Hold for oversedati on.Continu e fentanyl patch 50 mcg q 72 hrs and dilaudid 1 mg q 4 hrs prnContinu e prednisone 10 mg qd.Hospice consult pending. [id number] BRYANNA URBANO NP [address] [address] 09/27/2021 10:49:34 09/30/2021 14:31:05 Mixed anxiety and depressive disorder 360467196 F41.8 wellbutrin xl 150 mg bid-pm dose is 50 mg a week decrease until donethen remeron can be startedris perdal 0.5 mg bidAIMs 0 Adult fail ure to thrive syndrome 095730053 R62.7 encourage po intakereme sonal 7.5 mg hs [id number] BRYANNA URBANO NP [address] [address] 09/30/2021 12:53:54 10/04/2021 13:57:38 Mixed anxiety and depressive disorder 734350259 F41.8 wellbutrin xl 150 mg bid-pm dose is 100 mg decrease for 7 days then discontinu ishan remeron can be startedris perdal 0.5 mg bid-decrea sed to 0.25 mg am, 0.5 mg hsAIMs 0 Adult fail ure to thrive syndrome 748020948 R62.7 encourage po intakereme sonal 7.5 mg hs when hs wellbutrin finished Spinal roni nosis of lumbar region 35488978 M48.062 fentanyl patch 50 mcg q72 daysdilaud id 1 mg q4hr prnprednis on 10 mg daily [id number] Ana Damon MD [address] [address] 10/01/2021 19:18:36 10/04/2021 14:59:14 Spinal stenosis of lumbar region 45426276 M48.062 Continue fentanyl patch 50 mcg q 72 hrs and dilaudid 1 mg q 4 hrs prnContinu e prednisone 10 mg qd.Reconsi jeff hospice consult if pt. not able to tolerate med changes as below. Mixed anxi ety and depressive disorder 530562659 F41.8 Continue Wellbutrin 150 mg qAM and PM dose 100 mg until 10/08 then d/c pm doseStart mirtazapin e 7.5 mg qhs on 10/08Contin ue risperdal 0.25 mg qam and 0.5 mg qhsMonitor effect. Adult fail ure to thrive syndrome 041286745 R62.7 encourage po intakeStar t remeron 7.5 mg hs when hs wellbutrin finished as above. [id number] BRYANNA URBANO NP [address] [address] 10/03/2021 10:04:53 10/09/2021 15:41:28 Adult failure to thrive syndrome 750522334 R62.7 encourage po intakereme sonal 7.5 mg hs when hs wellbutrin finished 10/08 Mixed anxi ety and depressive disorder 389989164 F41.8 wellbutrin xl 150 mg bid-pm dose is 100 mg decrease for 7 days then discontinu e 10/08then remeron can be startedris perdal 0.5 mg bid-decrea sed to 0.25 mg am, 0.5 mg hsAIMs 0 Severe pain 93587953 R52 fentanyl patch 50 mcgdilaudi d 1 mg q4hr prn-d/c due to lack of useprednis one 10 mg dailyrepos ition prnhospice consult and admissionr oxanol was d/c due to morphine allergy [id number] BRYANNA URBANO NP [address] [address] 10/09/2021 10:18:53 10/14/2021 14:25:24 Mixed anxiety and depressive disorder 723798867 F41.8 wellbutrin xl 150 mg bid-pm dose is 100 mg decrease for 7 days then discontinu e 10/08then remeron can be startedris perdal 0.5 mg hs-am dose d/cAIMs 0 Adult fail ure to thrive syndrome 165048578 R62.7 encourage po intakereme sonal 7.5 mg hs when hs wellbutrin finished 10/08 Severe pain 21596738 R52 fentanyl patch 50 mcgdilaudi d 1 mg q4hr prn-d/c due to lack of useprednis one 10 mg dailyrepos ition prnhospice consult and admissionr oxanol was d/c due to morphine allergy [id number] BRYANNA URBANO NP [address] [address] 10/11/2021 10:22:56 10/14/2021 15:05:22 Mixed anxiety and depressive disorder 498341172 F41.8 wellbutrin xl 150 mg bid-pm dose is 100 mg decrease for 7 days then discontinu e 10/08then remeron can be startedris perdal 0.5 mg hs-am dose d/cAIMs 0 Adult fail ure to thrive syndrome 504625899 R62.7 encourage po intakereme sonal 7.5 mg hs when hs wellbutrin finished 10/08 Severe pain 56289260 R52 fentanyl patch 50 mcgdilaudi d 1 mg q4hr prn-d/c due to lack of useprednis one 10 mg dailyrepos ition prnhospice consult and admissionr oxanol was d/c due to morphine allergy [id number] BRYANNA URBANO NP [address] [address] 10/14/2021 12:20:18 10/16/2021 14:26:14 Severe pain 69095942 R52 fentanyl patch 50 mcgprednis one 10 mg dailyrepos ition prnroxanol was d/c due to morphine allergy Mixed anxi ety and depressive disorder 439901594 F41.8 wellbutrin xl 150 mgremeron 7.5 mg dailyrispe rdal 0.5 mg hs-am dose d/cAIMs 0 Fall W19.XXXA PT OT eval and treatfall precaution sfrequent safety checks [id number] BRYANNA URBANO NP [address] [address] 10/16/2021 13:18:48 10/23/2021 10:49:11 Adult failure to thrive syndrome 151720188 R62.7 encourage po intakereme sonal 7.5 mg hs when hs wellbutrin finished 10/08 Mixed anxi ety and depressive disorder 797997773 F41.8 wellbutrin xl 150 mgremeron 7.5 mg dailyrispe rdal 0.5 mg hs-am dose d/cAIMs 0 Severe pain 34891078 R52 fentanyl patch 50 mcgprednis one 10 mg dailyrepos ition prnroxanol was d/c due to morphine allergy Edema 193317249 R60.9 lasix 40 mg daily will increase to bid for 7 days [id number] Su Frey [address] [address] 10/18/2021 11:22:25 10/23/2021 11:24:28 Adult failure to thrive syndrome 356611190 R62.7 Appetite improveden courage po intakereme sonal 7.5 mg QHSMonitor weights Mixed anxi ety and depressive disorder 694472528 F41.8 wellbutrin xl 150 mgremeron 7.5 mg dailyrispe rdal 0.5 mg hsMonitor moodPsych eval prn Severe pain 91038711 R52 fentanyl patch 50 mcgprednis one 10 mg dailyBack pain now well controlled Monitor Edema 802643030 R60.9 Lasix 40 mg BIDACE wraps BLEElevate legs as toleratedM onitor [id number] BRYANNA URBANO NP [address] [address] 10/21/2021 10:50:08 10/23/2021 11:52:29 Edema 796055734 R60.9 lasix 40 mg bidmetolaz one 2.5 mg tues, thursace wraps Severe pain 52736589 R52 fentanyl patch 50 mcgprednis one 10 mg dailyrepos ition prnroxanol was d/c due to morphine allergy [id number] BRYANNA URBANO NP [address] [address] 10/24/2021 10:43:36 10/29/2021 12:14:04 Edema 805693742 R60.9 lasix 40 mg bidmetolaz one 2.5 mg tues, thurs, add a dose sundayace wraps Adult fail ure to thrive syndrome 404044679 R62.7 encourage po intakereme sonal 7.5 mg hs Mixed anxi ety and depressive disorder 419597201 F41.8 wellbutrin xl 150 mgremeron 7.5 mg dailyrispe rdal 0.5 mg hs- decrease hs dose to 0.25 mgAIMs 0 [id number] BRYANNA URBANO NP [facility] [place] [address] [place] [address] [place] [address] 10/30/2021 10:59:13 11/05/2021 10:01:44 Adult failure to thrive syndrome 688120777 R62.7 encourage po intakereme sonal 7.5 mg hs Mixed anxi ety and depressive disorder 441893281 F41.8 wellbutrin xl 150 mgremeron 7.5 mg dailyrispe rdal 0.25 mg- discontinu eAIMs 0 Severe pain 77026848 R52 fentanyl patch 50 mcgprednis one 10 mg dailyrepos ition prnroxanol was d/c due to morphine allergy [id number] Ana Damon MD [address] [place] [address] 11/19/2021 18:25:18 11/25/2021 15:04:26 Adult failure to thrive syndrome 251780445 R62.7 Doing much better. Wt. has been stable.Say s her appetite is good.Leonora nue mirtazapin e 7.5 mg qhs.Monito r wts. Mixed anxi ety and depressive disorder 828739818 F41.8 Mood good today.Cont inue wellbutrin XL 150 mg qd and mirtazapin e 7.5 mg qhsMonitor mood.Consu lt psych prn Severe pain 68294732 R52 Under good control on fentanyl patch 50 mcg q 3 days, prednisone 10 mg qd, and APAP prnRestart ing PT this week.Monit ro Edema 733081421 R60.0 Continue lasix 40 mg BID and metolazone 2.5 mg 2x/wk on & .Cont inue wilma wraps daily.Carmela tor Hypokalemia 07783867 E87 .6 With borderline low K+ for awhile. Has never been on K+ supplement .Will recheck next week and if still low will add KCL 10 meq qd.Monitor [id number] BRYANNA URBANO NP [facility] [place] [address] [place] [address] [place] [address] 12/12/2021 10:09:42 12/17/2021 16:08:08 Adult failure to thrive syndrome 867297860 R62.7 Doing much better. Wt. has been stable.Say s her appetite is good.Leonora nue mirtazapin e 7.5 mg qhs.Monito r wts. Mixed anxi ety and depressive disorder 463615812 F41.8 Mood good today.well butrin XL 150 mg qd and mirtazapin e 7.5 mg qhsMonitor mood.Consu lt psych prn Severe pain 06605079 R52 Under good control on fentanyl patch 50 mcg q 3 days, prednisone 10 mg qd, and APAP prnRestart ing PT this week.Monit ro Edema 318690796 R60.0 lasix 40 mg BIDmetolaz one 2.5 mg 2x/wk on & .Cont inue wilma wraps daily.Carmela tor Hypokalemia 54378242 E87 .6 With borderline low K+ for awhile. Has never been on K+ supplement .Will recheck next week and if still low will add KCL 10 meq qd.Monitor Atrial fibrillation 4943 6004 I48.0 eliquis 5 mg bidlasix 40 mg bid daily Gastroesop hageal reflux disease without esophagitis 815318378 K21.9 omeprazole 40 mg daily Hyperlipidemia 19962199 E78.49 atorvastat in 40 mg daily Hypothyroidism 27363714 E03.8 levothyrox ine 200 mcg daily Osteoarthritis 127636001 M15.0 fentanyl 50 mcg patch q72 hr Osteoporosis 77118388 M8 1.0 methotrexa te 2.5 ayalen dronate 70 thursdaypred nisone 10 mg daily Spinal roni nosis of lumbar region 94240916 M48.062 fentanyl patch 50 mcg q72 hourspredn isone 10 mg daily Fall W19.XXXA PT OT eval and treatfall precaution sfrequent safety checks [id number] MIKIE DUONG [address] [place] [address] rd [place] [address] 01/03/2022 14:55:57 01/06/2022 20:46:48 Pancreatitis 77295266 K85.90 monitor for symptomsmo nitor labs Adult fail ure to thrive syndrome 227880784 R62.7 Doing much better. Wt. has been stable.Say s her appetite is good.gary zapine 7.5 mg qhs.Monito r wts. Mixed anxi ety and depressive disorder 565158938 F41.8 Mood good today.well butrin XL 150 mg bidmirtaza pine 7.5 mg qhsMonitor mood.Consu lt psych prn Severe pain 46216571 R52 Under good control on fentanyl patch 50 mcg q 3 days,predn isone 10 mg qd,APAP 650 mg q4hr prnPT OT eval and treat prnMonitor Edema 397207882 R60.0 lasix 40 mg BIDmetolaz one 2.5 mg 2x/wk on & , thursday.Con tinue wilma wraps daily.Carmela tor Hypokalemia 44801047 E87 .6 With borderline low K+ for awhile. Has never been on K+ supplement .Monitor Atrial fibrillation 4943 6004 I48.0 eliquis 5 mg bidlasix 40 mg bid dailymetol azone 2.5 mg , doan Gastroesop hageal reflux disease without esophagitis 840930149 K21.9 omeprazole 40 mg daily Hyperlipidemia 97288197 E78.49 atorvastat in 40 mg daily Hypothyroidism 85743644 E03.8 levothyrox ine 200 mcg daily Osteoarthritis 976485812 M15.0 fentanyl 50 mcg patch q72 hr Osteoporosis 45400348 M8 1.0 prednisone 10 mg daily Spinal roni nosis of lumbar region 60324835 M48.062 fentanyl patch 50 mcg q72 hourspredn isone 10 mg daily Fall W19.XXXA PT OT eval and treatfall precaution sfrequent safety checks [id number] MIKIE DUONG [address] [place] [address] 01/06/2022 10:28:02 01/09/2022 13:18:55 Edema 506186487 R60.0 lasix 40 mg BIDmetolaz one 2.5 mg 2x/wk on & thursday.Con tinue wilma wraps daily.Carmela tor Pancreatitis 81190463 K8 5.90 monitor for symptomsmo nitor labs [id number] MIKIE DUONG [place] [address] [place] [address] 01/08/2022 12:46:02 01/10/2022 16:30:00 Edema 172372894 R60.0 lasix 40 mg BIDmetolaz one 2.5 mg 2x/wk on & , thursday.Con tinue wilma wraps daily-comp ression stockingsM onitor Pancreatitis 79474017 K8 5.90 monitor for symptomsmo nitor labs [id number] BRYANNA URBANO NP [address] [address] 01/10/2022 11:53:05 01/14/2022 12:50:34 Hypothyroidism 34551547 E03.8 levothyrox ine 200 mcg daily-incr ease to 225 mcgrecheck tsh-free T4 in 6 weeks [id number] MD KAREEM Whitaker [place] [address] [place] [address] 02/11/2022 16:58:31 02/19/2022 16:14:54 Hypothyroidism 66486746 E03.8 Levothyrox ine was increased from 200 mcg qd to 225 mcg qd on 01/13 due to TSH of 12.24. Free T4 was WNL.Due for recheck of TSH and FT4 in a week or two. Adult fail ure to thrive syndrome 458434613 R62.7 Doesn't really have this dx anymore. Her wt. has been stable and her appetite is good.Leonora nue mirtazapin e 7.5 mg qhs.Monito r wts. Mixed anxi ety and depressive disorder 389296952 F41.8 Mood good today.Cont inue wellbutrin XL 150 mg qd and mirtazapin e 7.5 mg qhsMonitor mood.Psych following, may try a GDR. Edema 476340142 R60.0 Continue lasix 40 mg BID and metolazone 2.5 mg 2x/wk on & .Cont inue WILMA wraps qd.Monitor Chronic pancreatitis 235 227815 K86.1 Under good control on fentanyl patch 50 mcg q 3 days, prednisone 10 mg qd, and APAP 650 mg q 6 hrs prnMonitor . Degenerati ve joint disease involving multiple joints 928716595 M15.0 Pain control as above.Also diclofenac gel to shoulders BID and hands prn.Will add lidocaine patches to shoulders, low back and elbows as needed.PT/ OT as needed.Mon itor [id number] BRYANNA VELAMIKIE ALICEA KAREEM HAYNES [address] [place] [address] 02/25/2022 11:22:33 03/10/2022 20:26:15 Hypothyroidism 37464374 E03.8 levothyrox ine 225 mcgrecheck tsh-free T4 in 6 weeks Spinal roni nosis of lumbar region 45457114 M48.062 fentanyl patch 50 mcg q72 hourspredn isone 10 mg daily [id number] BRYANNA MIKIE URBANO KAREEM [address] [address] 03/28/2022 11:18:57 04/03/2022 10:05:40 Degenerative joint disease involving multiple joints 097104525 M15.0 tramadol 25 mg q6hr prndiclofe nac gel to shoulders BID and hands prn.Will add lidocaine patches to shoulders, low back and elbows as needed.PT/ OT as needed.Mon itor Severe pain 57607846 R52 Under good control on fentanyl patch 50 mcg q 3 days,predn isone 10 mg qd,APAP 650 mg q4hr prnPT OT eval and treat prnMonitor [id number] BRYANNA VELANIXON MIKIE [address] [address] 04/04/2022 10:53:36 04/08/2022 15:25:03 Mixed anxiety and depressive disorder [id number] F41.8 Mood good today.well butrin XL 150 mg bidmirtaza pine 7.5 mg qhsMonitor mood.Consu lt psych prn Severe pain 67782846 R52 fentanyl patch 50 mcg q 3 days,predn isone 10 mg qd,APAP 1000 mg tidtramado l 25 mg bid prnPT OT eval and treat prnMonitor Edema 465167766 R60.0 lasix 40 mg BIDmetolaz one 2.5 mg 2x/wk on & , thursday.Con tinue wilma wraps daily.Carmela tor Hypokalemia 33557931 E87 .6 With borderline low K+ for awhile. Has never been on K+ supplement .Monitor Atrial fibrillation 4943 6004 I48.0 eliquis 5 mg bidlasix 40 mg bid dailymetol azone 2.5 mg , , doan Gastroesop hageal reflux disease without esophagitis 810281222 K21.9 omeprazole 40 mg daily Hyperlipidemia 25012215 E78.49 monitor Hypothyroidism 22214483 E03.8 levothyrox ine 225 mcg daily Osteoarthritis 716553193 M15.0 fentanyl 50 mcg patch q72 hrAPAP 1000 mg tidtramado l 25 mg bid prnglucosa mine 500 mg tid Osteoporosis 03895491 M8 1.0 prednisone 10 mg daily Spinal roni nosis of lumbar region 53881233 M48.062 fentanyl patch 50 mcg q72 hourspredn isone 10 mg daily Fall W19.XXXA PT OT eval and treatfall precaution sfrequent safety checks Adult fail ure to thrive syndrome 757037054 R62.7 Doing much better. Wt. has been stable.Say s her appetite is good.gary zapine 7.5 mg qhs.Monito r wts. Degenerati ve joint disease involving multiple joints 316667030 M15.0 tramadol 25 mg bid prndiclofe nac gel to shoulders BID and hands prn.Will add lidocaine patches to shoulders, low back and elbowsgluc osamine 500 mg bidPT/OT as needed.Mon itor [id number] MIKIE DUONG [address] [address] 04/10/2022 12:09:08 04/22/2022 16:17:48 Degenerative joint disease involving multiple joints 754326535 M15.0 tramadol 25 mg bid prndiclofe nac gel to shoulders BID and hands prn.Will add lidocaine patches to shoulders, low back and elbowsgluc osamine 500 mg bidtizanad ine 2 mg bidPT/OT as needed.Mon itor Severe pain 58165071 R52 fentanyl patch 50 mcg q 3 days,predn isone 10 mg qd,APAP 1000 mg tiddiclofe nac gel and lido patchestiz anidine 2 mg bidtramado l 25 mg bid prnPT OT eval and treat prnMonitor [id number] MIKIE DUONG [place] [address] [place], [place] [address], [place] [address] 05/07/2022 10:29:27 05/09/2022 15:20:45 Pancreatitis 48153044 K85.90 monitor for symptomsmo nitor labs Mixed anxi ety and depressive disorder 478595068 F41.8 Mood good today.well butrin XL 150 mg bidmirtaza pine 7.5 mg qhsMonitor mood.Consu lt psych prn Severe pain 89040549 R52 fentanyl patch 50 mcg q 3 days,predn isone 10 mg qd,APAP 1000 mg tidtramado l 25 mg bid prnPT OT eval and treat prnMonitor Edema 350839140 R60.0 lasix 40 mg BIDmetolaz one 2.5 mg 2x/wk on & , thursday.Con tinue wilma wraps daily.Carmela tor Hypokalemia 72366467 E87 .6 With borderline low K+ for awhile. Has never been on K+ supplement .Monitor Atrial fibrillation 4943 6004 I48.0 eliquis 5 mg bid-on hold due to buttock bruiselasi x 40 mg bid dailymetol azone 2.5 mg , doan Gastroesop hageal reflux disease without esophagitis 574893227 K21.9 omeprazole 40 mg daily Hyperlipidemia 95727718 E78.49 monitor Hypothyroidism 54114076 E03.8 levothyrox ine 225 mcg daily Osteoarthritis 710212580 M15.0 fentanyl 50 mcg patch q72 hrAPAP 1000 mg tidtramado l 25 mg bid prnglucosa mine 500 mg tid Osteoporosis 84453551 M8 1.0 prednisone 10 mg daily Spinal roni nosis of lumbar region 84146497 M48.062 fentanyl patch 50 mcg q72 hourspredn isone 10 mg daily Fall W19.XXXA PT OT eval and treatfall precaution sfrequent safety checks Adult fail ure to thrive syndrome 146551279 R62.7 Doing much better. Wt. has been stable.Say s her appetite is good.gary zapine 7.5 mg qhs.Monito r wts. Degenerati ve joint disease involving multiple joints 437741404 M15.0 tramadol 25 mg bid prndiclofe nac gel to shoulders BID and hands prn.Will add lidocaine patches to shoulders, low back and elbowsgluc osamine 500 mg bidPT/OT as needed.Mon itor Contusion 079042476 T14. 8XXA monitor bruising for extension or lesseningh old eliquis [id number] Saimna Wilburn MD [facility] [place] [address] [place] [address] [place] [address] 05/30/2022 07:35:26 06/04/2022 16:14:23 Chronic pain 69388426 G89.29 diclofenac gel 1% to shoulders bid, to both hands and spine prnfentany l patch 50 mcg q72 hsalonpas patch to right shoulder dailyAPAP 1000 mg tidtramado l 25 mg bidtizanid ine 2 mg bidprednis one 10 mg dailyPT/OT /PM&R prnwill monitor Mixed anxi ety and depressive disorder 818993277 F41.8 bupropion SR 150 mg dailymirta zapine 7.5 mg at hswill monitor Hypothyroidism 14505472 E03.8 levothyrox ine 225 mcg dailywill monitor Atrial fibrillation 4943 6004 I48.0 consider restart ACheld due to hematoma Type 2 russel betes mellitus 78540924 E11.9 insulin aspart per sliding scalewill monitor Edema 635604622 R60.0 furosemide 40 mg dailymetol azone 2.5 mg daily on T, Th, Sawill monitor Gastroesop hageal reflux disease without esophagitis 739393813 K21.9 omeprazole 40 mg bidwill monitor Recurrent pancreatitis 942088186 K86.1 fu GI prnlow fat dietwill monitor [id number] MIKIE DUONG [address] [place] [address] [place] [address] 07/21/2022 10:43:42 08/01/2022 13:30:09 COVID-19 222552610 U07.1 07/20 covid positiveen courage po food and fluidscons ider ivf for anorexiaco nsider paxlovid or decadron for symptomsse nd to ED for decompensa tion [id number] MIKIE DUONG [place] [address] [place] [phone] 07/23/2022 11:28:07 08/01/2022 14:08:08 COVID-19 108024437 U07.1 07/20 covid positiveen courage po food and fluidscons ider ivf for anorexiaco nsider paxlovid or decadron for symptomsse nd to ED for decompensa tion Chronic pain 74173295 G8 9.29 diclofenac gel 1% to shoulders bid, to both hands and spine prnfentany l patch 50 mcg q72 hsalonpas patch to right shoulder dailyAPAP 1000 mg tidtramado l 25 mg bidtizanid ine 2 mg bidprednis one 10 mg dailyPT/OT /PM&R prnwill monitor Mixed anxi ety and depressive disorder 177080505 F41.8 bupropion SR 150 mg dailymirta zapine 7.5 mg at hswill monitor Hypothyroidism 47883929 E03.8 levothyrox ine 225 mcg dailywill monitor Atrial fibrillation 4943 6004 I48.0 eliquis 2.5 mg bidmonitor for any hematomas Type 2 russel betes mellitus 15768528 E11.9 insulin aspart per sliding scalewill monitor Edema 550588365 R60.0 furosemide 40 mg dailymetol azone 2.5 mg daily on T, Th, Sawill monitor Gastroesop hageal reflux disease without esophagitis 859070253 K21.9 omeprazole 40 mg bidwill monitor Recurrent pancreatitis 046466216 K86.1 fu GI prnlow fat dietwill monitor [id number] MIKIE DUONG [place] [address] [place] [phone] 07/25/2022 10:22:57 08/01/2022 15:15:29 COVID-19 469271863 U07.1 07/20 covid positiveen courage po food and fluidscons ider ivf for anorexiaco nsider paxlovid or decadron for symptomsse nd to ED for decompensa tion [id number] BRYANNA URBANO NP [address] [address] 07/30/2022 11:27:21 08/01/2022 15:57:11 COVID-19 899793158 U07.1 07/20 covid positive-a symptomati c, recovered by dateencour age po food and fluidscons ider ivf for anorexiaco nsider paxlovid or decadron for symptomsse nd to ED for decompensa tion [id number] BRYANNA URBANO NP KAREEM HAYNES [address] [place] [phone] 07/31/2022 12:15:38 08/05/2022 18:21:58 COVID-19 650226483 U07.1 07/20 covid positive-a symptomati c, recovered by dateencour age po food and fluidscons ider ivf for anorexiaco nsider paxlovid or decadron for symptomsse nd to ED for decompensa tionCXR ordered for 07/31 Pancreatitis 53956905 K8 5.90 monitor for symptomsmo nitor labs [id number] BRYANNA URBANO NP KAREEM [place] [address] [place] [phone] 08/01/2022 11:59:17 08/06/2022 08:14:07 COVID-19 668533261 U07.1 07/20 covid positive-a symptomati c, recovered by dateencour age po food and fluidscons ider ivf for anorexiaco nsider paxlovid or decadron for symptomsse nd to ED for decompensa tionCXR ordered for 07/31-negati ve for chf or pna [id number] Margarette Awad NP [address] [address] 08/09/2022 10:30:12 08/13/2022 13:00:41 COVID-19 596573281 U07.1 resolved- no new treatment in hospital documentof f isolation precaution scovid rapid negative in facility on 08/09/22 per nursingmon itor for sequelae note: 07/20 covid positive-a symptomati c, recovered by dateencour age po food and fluidscons ider ivf for anorexiaco nsider paxlovid or decadron for symptomsse nd to ED for decompensa tionCXR ordered for 07/31-negati ve for chf or pna Pancreatitis 63733176 K8 5.90 was treated with ivf, medication s, and pain adjuncts- now improvedmo nitor for symptomsav oid fatty foods on low fat dietmonito r labs Chronic pain 60896325 G8 9.29 contdiclof enac gel 1% to shoulders bid, to both hands and spine prnfentany l patch 50 mcg q72 hsalonpas patch to right shoulder dailyAPAP 1000 mg tidtramado l 25 mg bidtizanid ine 2 mg bidprednis one 10 mg dailyPT/OT for weakness and painwill monitor Recurrent pancreatitis 137261806 K86.1 fu GI prnlow fat dietwill monitor Dislocatio n of shoulder joint 556348361 S43.004A pt has right shoulder dislocatio ncontinue pain meds as belowsling and swath as toleratedp assive romPT/OTfu with Dr Velasquez outptmonit or for cms, pulses, disclorati on [id number] MIKIE DUONG [address] [address] 08/11/2022 10:07:53 08/13/2022 13:35:33 Pancreatitis 34054718 K85.90 monitor for symptomsmo nitor labswas treated with ivf, medication s, and pain adjuncts- now improvedmo nitor for symptomsav oid fatty foods on low fat diet Dislocatio n of shoulder joint 246015377 S43.004A pt has chronic right shoulder dislocatio ncontinue pain medssling and swath as toleratedp assive romPT/OTfu with Dr Velasquez outptmonit or for cms, pulses, disclorati on [id number] BRYANNA URBANO NP [address] [address] 08/25/2022 11:17:28 08/27/2022 14:05:17 Pancreatitis 83474464 K85.90 monitor for symptomsmo nitor labswas treated with ivf, medication s, and pain adjuncts- now improvedmo xifloxin 400 mg daily x4 daysmonito r for symptoms avoid fatty foods on low fat diet Dislocatio n of shoulder joint 228733117 S43.004A pt has chronic subluxatio n right shoulder dislocatio ncontinue pain meds as belowsling and swath as toleratedp assive romPT/OTfu with Dr Velasquez outptmonit or for cms, pulses, disclorati on Chronic pain 94613077 G8 9.29 contdiclof enac gel 1% to shoulders bid, to both hands and spine prnfentany l patch 50 mcg q72 hsalonpas patch to right shoulder dailyAPAP 1000 mg tidtramado l 25 mg bidtizanid ine 2 mg bidprednis one 10 mg dailyPT/OT for weakness and painwill monitor COVID-19 801151892 U07.1 resolved- no new treatment in hospital documentof f isolation precaution scovid rapid negative in facility on 08/09/22 per nursingmon itor for sequelae note: 07/20 covid positive-a symptomati c, recovered by dateencour age po food and fluidscons ider ivf for anorexiaco nsider paxlovid or decadron for symptomsse nd to ED for decompensa tionCXR ordered for 07/31-negati ve for chf or pna Recurrent pancreatitis 216315308 K86.1 f/u GI prnlow fat dietwill monitor [id number] MIKIE DUONG [address] [place] [address] 09/04/2022 10:39:19 09/08/2022 15:11:55 Dislocation of shoulder joint 362404780 S43.004A pt has chronic subluxatio n right shoulder dislocatio ncontinue pain meds as belowsling and swath as tolerated for comfort prnPT/Edilson/ u with Dr Velasquez outptmonit or for cms, pulses, disclorati on Mixed anxi ety and depressive disorder 874253353 F41.8 bupropion SR 150 mg dailymirta zapine 7.5 mg at hswill monitor [id number] MD KAREEM Lloyd [address] [place] [phone] 10/01/2022 10:06:00 10/03/2022 11:00:52 Atrial fibrillation 15567832 I48.0 apixaban 2.5 mg bidwill monitor Recurrent pancreatitis 862164156 K86.1 fu GIlow fat dietwill monitor Gastroesop hageal reflux disease without esophagitis 222183559 K21.9 omeprazole 40 mg bidwill monitor Type 2 russel betes mellitus 53718358 E11.9 insulin aspart per sliding scalewill monitor Chronic pain 93919164 G8 9.29 diclofenac gel 1% to shoulders bid, to both hands and spine prnfentany l patch 50 mcg q72 hsalonpas patch to right shoulder dailyAPAP 1000 mg tidtramado l 25 mg bidtizanid ine 2 mg bidprednis one 10 mg dailyPT/OT /PM&R prnwill monitor Peripheral edema 0088557 00 R60.0 metolazone 2.5 mg Tu, Th, Sufurosemi de 40 mg bidwill monitor Hypothyroidism 08908005 E03.8 levothyrox ine 225 mcg dailywill monitor Mixed anxi ety and depressive disorder 010752387 F41.8 bupropion SR 150 mg dailymirta zapine 7.5 mg at hstizanidi ne 2 mg bidwill monitor Essential hypertension 00760097 I10 metolazone 2.5 mg daily on , , Safurosemi de 40 mg bidwill monitor [id number] MIKIE DUONG [address] [place] [address], [place] [address] 10/15/2022 14:06:21 10/20/2022 14:25:22 Atrial fibrillation 74860495 I48.0 apixaban 2.5 mg bidwill monitor Recurrent pancreatitis 523584193 K86.1 fu GIlow fat dietwill monitor Gastroesop hageal reflux disease without esophagitis 911833408 K21.9 omeprazole 40 mg bidwill monitor Type 2 russel betes mellitus 08989346 E11.9 insulin aspart per sliding scalewill monitor Chronic pain 97511058 G8 9.29 diclofenac gel 1% to shoulders bid, to both hands and spine prnfentany l patch 50 mcg q72 hsalonpas patch to right shoulder dailyAPAP 1000 mg tidtramado l 25 mg bidtizanid ine 2 mg bidprednis one 10 mg dailyPT/OT /PM&R prnwill monitor Peripheral edema 1904688 00 R60.0 metolazone 2.5 mg Tu, Th, Sufurosemi de 40 mg bidwill monitor Hypothyroidism 55019623 E03.8 levothyrox ine 225 mcg dailywill monitor Mixed anxi ety and depressive disorder 842790063 F41.8 bupropion SR 150 mg dailymirta zapine 7.5 mg at hstizanidi ne 2 mg bidwill monitor Essential hypertension 19131073 I10 metolazone 2.5 mg daily on , , Safurosemi de 40 mg bidwill monitor [id number] BRYANNA URBANO NP [address] [address] 11/28/2022 13:21:24 12/03/2022 17:20:32 Atrial fibrillation 90386813 I48.0 apixaban 2.5 mg bidwill monitor Recurrent pancreatitis 902467261 K86.1 f/u GIlow fat dietwill monitor Gastroesop hageal reflux disease without esophagitis 801573719 K21.9 omeprazole 40 mg bidwill monitor Type 2 russel betes mellitus 04635506 E11.9 insulin aspart per sliding scalewill monitor Chronic pain 41167755 G8 9.29 diclofenac gel 1% to shoulders bid, to both hands and spine prnfentany l patch 50 mcg q72 hsalonpas patch to right shoulder dailyAPAP 1000 mg tidtramado l 25 mg bidtizanid ine 2 mg bidprednis one 10 mg dailyPT/OT /PM&R prnwill monitor Peripheral edema 0154607 00 R60.0 metolazone 2.5 mg , , Sufurosemi de 40 mg bidwill monitor Hypothyroidism 13663349 E03.8 levothyrox ine 225 mcg dailywill monitor Mixed anxi ety and depressive disorder 682503881 F41.8 bupropion SR 150 mg dailymirta zapine 7.5 mg at hstizanidi ne 2 mg bidwill monitor Essential hypertension 46907884 I10 metolazone 2.5 mg daily on , , Safurosemi de 40 mg bidwill monitor [id number] BRYANNA URBANO NP [address] [address] 01/14/2023 14:00:23 01/16/2023 15:25:27 Mixed anxiety and depressive disorder 134478518 F41.8 bupropion SR 150 mg dailymirta zapine 7.5 mg at hstizanidi ne 2 mg bidwill monitor Severe pain 21268795 R52 fentanyl patch 50 mcg q 3 days,predn isone 10 mg qd,APAP 1000 mg tidtramado l 25 mg bid prnPT OT eval and treat prnMonitor Fall W19.XXXA PT OT eval and treatfall precaution sfrequent safety checks [id number] Samina Wilburn MD [facility] [place] [address] [place] [phone] 02/11/2023 10:06:26 02/13/2023 16:03:58 Mixed anxiety and depressive disorder 893944507 F41.8 bupropion SR 150 mg dailymirta zapine 7.5 mg at hswill monitor Atrial fibrillation 4943 6004 I48.0 apixaban 2.5 mg bidwill monitor Type 2 russel betes mellitus 40901075 E11.9 insulin aspart per sliding scalewill monitor Chronic pain 32198208 G8 9.29 diclofenac gel 1% to shoulders bid, to both hands and spine prnfentany l patch 50 mcg q72 hsalonpas patch to right shoulder dailyAPAP 1000 mg tidtramado l 25 mg bidtizanid ine 2 mg bidprednis one 10 mg dailyPT/OT /PM&R prnwill monitor Gastroesop hageal reflux disease without esophagitis 161271445 K21.9 omeprazole 40 mg bidwill monitor Hypothyroidism 45685664 E03.8 levothyrox ine 225 mcg dailywill monitor Edema 887419726 R60.0 furosemide 40 mg dailymetol azone 2.5 mg daily on , , Sawill monitor [id number] MD KAREEM Whitaker [address] [place] [phone] 03/20/2023 20:34:03 03/23/2023 14:49:16 Ecchymosis present 423191922 S80.02XA Probably bumped it and doesn't remember, no pain, so no tx needed.Mon itor for resolution and monitor for new ecchymoses . Nausea 359898634 R11.0 Mild, periodic and chronic.Wi ll start Zofran 4 mg q 6 hrs prnMonitor sxs. Chronic neck pain 180378 0010 107 M54.2 Already on multiple pain meds.Will start lidocaine patch to neck prn, pt. says it only hurts sometimes, so doesn't want it scheduled. Continue fentanyl patch 50 mcg q 72 hrs, APAP 1000 mg TID,tramad ol 25 mg BID,tizani dine 2 mg BID andprednis one 10 mg qd.Monitor sxs. [id number] MIKIE DUONG [address] [place] [phone] 04/03/2023 16:33:21 04/10/2023 09:59:49 Mixed anxiety and depressive disorder 307152201 F41.8 bupropion SR 150 mg dailymirta zapine 7.5 mg at hswill monitor Atrial fibrillation 4943 6004 I48.0 apixaban 2.5 mg bidwill monitor Type 2 russel betes mellitus 68304786 E11.9 insulin aspart per sliding scalewill monitor Chronic pain 30882242 G8 9.29 fentanyl patch 50 mcg q72 hsalonpas patch to right shoulder dailyAPAP 1000 mg tidtramado l 25 mg bidtizanid ine 2 mg bidprednis one 10 mg dailyPT/OT /PM&R prnwill monitor Gastroesop hageal reflux disease without esophagitis 821851833 K21.9 omeprazole 40 mg bidwill monitor Hypothyroidism 67581769 E03.8 levothyrox ine 225 mcg dailywill monitor Edema 218964701 R60.0 furosemide 40 mg dailymetol azone 2.5 mg daily on T, Th, Sawill monitor [id number] MD KAREEM Whitaker [address] [place] [address] 05/29/2023 18:52:13 06/12/2023 13:46:31 Mixed anxiety and depressive disorder 438387262 F41.8 Mood good tonight.Co ntinue bupropion SR 150 mg qd and mirtazapin e 7.5 mg qhsMonitor mood.Psych follows Atrial fibrillation 4943 6004 I48.0 Rate in good control on no rate controllin g meds.Leonora nue eliquis 2.5 mg BID for AC.Monitor HR and bleeding risk. Type 2 russel betes mellitus 32672628 E11.9 Last HgA1C 7.6 in 03/2022.Sug ars in adequate control on diet control with occ. SSI.Monito r fingerstic ks TID, due for recheck of HgA1C, forgot to order. Chronic pain 59201236 G8 9.29 Will add diclofenac gel for hands BID.Contin ue fentanyl patch 50 mcg q 72 hrs, salonpas patch to right shoulder qd, APAP 1000 mg TID, tramadol 25 mg BID, tizanidine 2 mg BID, and prednisone 10 mg qd.Continu e rehab as able.Monit or sxs. Gastroesop hageal reflux disease without esophagitis 444033981 K21.9 No current sxs.Contin ue omeprazole 40 mg BID.Monito r sxs Hypothyroidism 89649004 E03.8 TSH WNL.Contin ue levothyrox ine 225 mcg qdMonitor TSH yearly. Edema 596084154 R60.0 At baseline.C ontinue furosemide 40 mg qd and metolazone 2.5 mg qd on T, Th, SaMonitor sxs. [id number] BRYANNA URBANO NP [address] [address] 06/29/2023 12:07:31 07/07/2023 18:16:09 Fall 1147303 W19.XXXA PT OT eval and treatfall precaution sfrequent safety checks Contusion of face 869883 004 S00.83XA monitor neurosmoni tor for any signs of infectionm onitor for resolution of the bruising [id number] BRYANNA URBANO NP [address] [address] 07/01/2023 12:23:08 07/07/2023 19:15:00 Contusion of face 545375835 S00.83XA monitor neurosmoni tor for any signs of infectionm onitor for resolution of the bruising Edema 237844813 R60.0 furosemide 40 mg dailymetol azone 2.5 mg daily on T, Th, Sawill monitor [id number] BRYANNA URBANO NP [address] [address] 07/24/2023 12:53:42 08/04/2023 13:25:11 Contusion of face 373165646 S00.83XA resolvedmo nitor neurosmoni tor for any signs of infectionm onitor for resolution of the bruising Edema 429122239 R60.0 furosemide 40 mg dailymetol azone 2.5 mg daily on , , Sawill monitor Fall W19.XXXA PT OT eval and treatfall precaution sfrequent safety checks Mixed anxi ety and depressive disorder 761515564 F41.8 bupropion SR 150 mg dailymirta zapine 7.5 mg at hswill monitor Atrial fibrillation 4943 6004 I48.0 apixaban 2.5 mg bidwill monitor Type 2 russel betes mellitus 18426196 E11.9 insulin aspart per sliding scalewill monitor Chronic pain 37555444 G8 9.29 fentanyl patch 50 mcg q72 hsalonpas patch to right shoulder dailyAPAP 1000 mg tidtramado l 25 mg bidtizanid ine 2 mg bidprednis one 10 mg dailyPT/OT /PM&R prnwill monitor Gastroesop hageal reflux disease without esophagitis 201820558 K21.9 omeprazole 40 mg bidwill monitor Hypothyroidism 61222412 E03.8 levothyrox ine 225 mcg dailywill monitor [id number] NELDA MANSFIELD [address] [place] [phone] 09/03/2023 09:01:19 09/08/2023 15:59:59 Dry skin dermatitis 116368891 L85.3 see hpireports intermitte nt itchiness at timesfluid s encouraged Apply moisturize r to skin BIDhydorco rtisone cream TID prn 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 not appreciate d on examwarm salt water rinses QID prngood oral hygiene encourageb arcos teeth after mealschlor hexidine mouth wash qd and HS Toothache 09729298 K08.8 9 [id number] MD KAREEM Lloyd [address] [place] [phone] 5 09/23/2023 08:31:39 09/29/2023 10:26:59 Mixed anxiety and depressive disorder 252815644 F41.8 bupropion SR 150 mg dailymirta zapine 7.5 mg at hswill monitor Chronic pain 45865549 G8 9.29 diclofenac gel 1% to shoulders daily in eveningfen tanyl patch 50 mcg q72 hLidocaine patch to right shoulder and neck dailyAPAP 1000 mg tidtramado l 25 mg bidtizanid ine 2 mg bidprednis one 10 mg dailyPT/OT /PM&R prnwill monitor Atrial fibrillation 4943 6004 I48.0 apixaban 2.5 mg bidwill monitor Type 2 russel betes mellitus 39682633 E11.9 insulin aspart per sliding scalewill monitor Hypothyroidism 91027194 E03.8 levothyrox ine 225 mcg dailywill monitor Gastroesop hageal reflux disease without esophagitis 595290101 K21.9 omeprazole 40 mg bidwill monitor Edema 642569166 R60.0 furosemide 40 mg dailymetol azone 2.5 mg daily on T, Th, Sawill monitor Chronic dermatitis 42373 007 L20.89 d/c compressio n stockingst riamcinolo ne cream bidelevate d legswill monitor [id number] NELDA MANSFIELD [place] [address] [place] [phone] 5 09/24/2023 08:15:25 10/01/2023 11:35:02 Fall 8607315 W19.XXXA see hpiPT/OT eval and tx per facility protocolmi nimize fall risknursin g to educate pt on making sure wheelchair is in lock position and front wheels are facing forward before getting up out of chair. Contusion 871353903 T14. 8XXA Patient hit her right almanza against bed frame when she fell forwardnot ed with mild tenderness on eliquismon itor right almanza bruise for healing [id number] NELDA MANSFIELD [address] [address] 10/13/2023 10:07:38 10/15/2023 15:15:36 Neuropathy 279959752 G62.9 bilateral lower extremity calf with tingling pain and tenderness she is not experience any pain relief with current pain medication spatient agrees to try gabapentin times one dose 100mg she will update nursing if she experience relief. Fatigue 25392404 R53.83 appears tirediron studies, tsh, t4, bmp and cbc, vit D and Vit B levels orderedwil l r/o UTI as well. Type 2 russel betes mellitus 40225714 E11.9 currently on lispro SSC will adjust coveragere cently added lantus 10 units10/12 increased lantus to 15 units Hypothyroidism 18400297 E03.8 levothyrox ine 225 mcg dailyord TSH, T4 for 10/13 [id number] NELDA MANSFIELD [address] [address] 10/19/2023 13:21:25 10/22/2023 12:31:39 Vitamin D deficiency 33355175 E55.9 VIt D level 22start cholecacif telly 1000 unit dailyreche ck Vitamin D level in 3-4 months Neuropathy 318703687 G62 .9 today she tells me that she has a postive effect with gabapentin and would like to continue, she has not had any pain.will scheduled gabapentin 100 mg BID Q12 Type 2 russel betes mellitus 31427728 E11.9 currently on lispro SSC will adjust coveragere cently added lantus 10 units10/12 increased lantus to 15 units10/18: FS have improved Hypothyroidism 88758740 E03.8 levothyrox ine 225 mcg dailyord TSH, T4 for 10/13 Pending Dry skin dermatitis 2600 68532 L85.3 posterior calf noted with red patchy areas that are dry and flakyrefus ed rx cream recommende thelma lee and has been using -goldbond creamuses her own with good effect per patient.wi monitor. [id number] NELDA MANSFIELD [address] [address] 10/30/2023 21:18:42 11/02/2023 15:19:50 Type 2 diabetes mellitus 79600967 E11.9 continue lispro SSCcontinu e lantus 15 unitsmonit or FS TID Hypothyroidism 92443108 E03.8 levothyrox ine decreased to 175 mcgTSH 0.1 T4 normal rangerepea t labs in 6 weeks Abdominal pain 06035969 R10.9 see hpicontinu e zofran prn for nauseaplan robin upcoming EGD. [id number] NELDA MANSFIELD [address] [address] 11/04/2023 10:45:41 11/16/2023 16:04:21 Type 2 diabetes mellitus 77649145 E11.9 continue lispro SSCcontinu e lantus 15 unitsmonit or FS TID Hypothyroidism 87212342 E03.8 levothyrox ine decreased to 175 mcgTSH 0.1 T4 normal rangerepea t labs in 6 weeks Abdominal pain 07960542 R10.9 see hpicontinu e zofran prn for nauseaEGD unremarkab le Urinary tr act infectious disease 09244518 N39.0 10/21: postive UAstart levofloxac in 250 mg for 5 daysstart probiotic 1 tab bid for 10 daysincrea se oral hydration. [id number] NELDA MANSFIELD [place] [address] [place] [address] [place] [address] 11/19/2023 10:42:12 11/27/2023 15:22:30 Type 2 diabetes mellitus 48787923 E11.9 continue lispro SSCcontinu e lantus 15 unitsmonit or FS TID Hypothyroidism 27995759 E03.8 levothyrox ine decreased to 175 mcgTSH 0.1 T4 normal rangerepea t labs in 6 weeks Abdominal pain 20277956 R10.9 see hpicontinu e zofran prn for nauseaEGD unremarkab le Urinary tr act infectious disease 28065377 N39.0 10/21: postive UAstart levofloxac in 250 mg for 5 daysstart probiotic 1 tab bid for 10 daysincrea se oral hydration. Mixed anxi ety and depressive disorder 306921616 F41.8 bupropion SR 150 mg dailymirta zapine 7.5 mg at hswill monitor Chronic pain 06727128 G8 9.29 diclofenac gel 1% to shoulders daily in eveningfen tanyl patch 50 mcg q72 hLidocaine patch to right shoulder and neck dailyAPAP 1000 mg tidtramado l 25 mg bidtizanid ine 4 mg bidprednis one 10 mg dailyPT/OT /PM&R prnwill monitor Atrial fibrillation 4943 6004 I48.0 continue apixaban 2.5 mg bid Gastroesop hageal reflux disease without esophagitis 130894243 K21.9 omeprazole 40 mg bidcontinu e zofran 4 mg q6 prn Edema 458269999 R60.0 continue furosemide 40 mg dailyconti nue metolazone 2.5 mg daily on , , Eczema 61467118 L30.9 triamcinol one 0.1 % cream BID Dyspnea 087347671 R06.00 continue albuterol inhaler prn for shortness of breath Osteoarthritis 163765458 M15.0 lidocaine patch right shoulder.f entanyl 50 mcg patch q72 hrAPAP 1000 mg tidtramado l 25 mg bid prnglucosa mine 500 mg tid Chronic neck pain 519458 5745 107 M54.2 continue gabapentin 100 mg BID Neuropathy 429117885 G62 .9 continue gabapentin 100 mg BID. 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 [id number] NELDA MANSFIELD [address] [address] 11/26/2023 18:58:29 12/01/2023 10:07:02 Pain of left heel 6956438285 315429 M79.672 skin prep to bilateral heels BIDoff load heels on pillow when in bedmonitor for worsening sx.Risk factor discussed diabetes ,immobilit y, age [id number] NELDA MANSFIELD [address] [address] 12/14/2023 08:12:26 12/17/2023 13:25:50 Eczema 14575695 L30.9 bilateral lower extremitie s rash with scattered patches dry and redhx chronic edema, there is potential for weeping/oo zingtriamc inolone 0.1 % cream BIDmoistur izes legs daily Pain in right heel 08689 79877 679567 M79.671 right heel red and boggywill add skin prep BIDoffload heels when in bedwear socks with shoes Neuropathy 147926790 G62 .9 reports increasing bilateral leg painwill increase gabapentin to 200 mg BID and re assess for inprovemen t. [id number] NELDA MANSFIELD [address] [address] 01/12/2024 12:10:02 01/13/2024 16:55:18 Easy bruising 714515291 R58 reddish mid upper chest bruising, skin intactshe is noted with scattered bruising on shoulder as well.she takes eliquis and prednisone , diuretic dailywill continue to monitor.wi ll check iron studies and VIT D on next lab day. Hypothyroidism 60833928 E03.8 continue levothyrox ine 175 mcgTSH now 1.74contin ue to monitor. [id number] MD KAREEM Whitaker [place] [address] [facility] [place], [place] [address] 02/01/2024 21:46:09 02/17/2024 11:18:25 Chronic pain 31472586 G89.29 Remains at baseline.C ontinue fentanyl patch 50 mcg q 72 hrs, salonpas patch to right shoulder qd, APAP 1000 mg TID, tramadol 25 mg BID, tizanidine 2 mg BID, and prednisone 10 mg qd.Continu e rehab as able.Monit or sxs. 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 SSI.Monito r fingerstic ks TID, due for recheck of HgA1C, forgot to order. Gastroesop hageal reflux disease without esophagitis 611792455 K21.9 No current sxs.Contin ue omeprazole 40 mg BID.Monito r sxs Hypothyroidism 26943205 E03.8 TSH WNL.Contin ue levothyrox ine 225 mcg qdMonitor TSH yearly. Edema 618561031 R60.0 Marked tonight.Co ntinue furosemide 40 mg qd and metolazone 2.5 mg qd on T, , SaMonitor sxs. Eczema 50310305 L30.9 Much improved.C ontinue triamcinol one 0.1 % cream BID and house moisturize r qdMonitor Neuropathy 902925098 G62 .89 Gabapentin was increased to 200 mg BID on 12/14/23Som e improvemen t since then.Leonora nue other pain meds as above also.Monit or. [id number] ONEYDA BROWN, MIKIE [facility] [address] [place] [address] 02/18/2024 11:02:37 02/20/2024 09:33:35 Edema 067343323 R60.0 Suspecting more may be going on, [...] nFurther work up as indicated Chronic pain 57906097 G8 9.29 Remains at baseline.C ontinue fentanyl patch 50 mcg q 72 hrs, salonpas patch to right shoulder qd, APAP 1000 mg TID, tramadol 25 mg BID, tizanidine 2 mg BID, and prednisone 10 mg qd.Continu e rehab as able.Monit or sxs. Mixed anxi ety and depressive disorder 710078984 F41.8 Mood goodContin ue bupropion SR 150 mg qd and mirtazapin e 7.5 mg qhsMonitor mood.Psych follows Atrial fibrillation 4943 6004 I48.0 Rate remains in good control on no rate controllin g meds.Leonora nue eliquis 2.5 mg BID for AC.Monitor HR and bleeding risk. Type 2 russel betes mellitus 04528173 E11.9 Last HgA1C 7.6 in 03/2022.Sug ars in adequate control on diet control with occ. SSI.Monito r fingerstic ks TID, due for recheck of HgA1C, forgot to order. Gastroesop hageal reflux disease without esophagitis 608491095 K21.9 No current sxs.Contin ue omeprazole 40 mg BID.Monito r sxs Hypothyroidism 05073689 E03.8 TSH WNL.Contin ue levothyrox ine 225 mcg qdMonitor TSH yearly. Eczema 78647038 L30.9 Much improved.C ontinue triamcinol one 0.1 % cream BID and house moisturize r qdMonitor Neuropathy 612787896 G62 .89 Gabapentin was increased to 200 mg BID on 12/14/23Som e improvemen t since then.Leonora nue other pain meds as above also.Monit or. Candidiasis of mouth 797 80030 B37.0 Aranda plaque on tongue.Voi ce hoarse, ? if also esophageal Nystatin Swish and swallow 5 ml qid x 30 daysMainta in oral hygeine, brush tongue Dental caries 65314650 K 02.9 Planning for teeth # 29 and 31 extraction s.Will hold clearance for now until fluid balance figured out.Will hold basaglar insulin the night before procedureW ill hold eliquis the day before and the day of procedureD oes not appear abx. proph. is warrantedC ardiac risk currently low for dental extraction s. Hypokalemia 75409681 E87 .6 K 3.1 on labs 02/16/24Pla n as above [id number] NELDA MANSFIELD [facility] [address] [place] [address] 02/23/2024 11:06:51 02/24/2024 15:45:14 Edema 882317819 R60.[address] xray did not show [...] restrictio nFurther work up as indicated Hypokalemia 95614326 E87 .6 02/21:Impro thomas 3.4continu e kcl 30 meq daily. Chronic pain 78586762 G8 9.29 Remains at baseline.C ontinue fentanyl patch 50 mcg q 72 hrs, salonpas patch to right shoulder qd, APAP 1000 mg TID, tramadol 25 mg BID, tizanidine 2 mg BID, and prednisone 10 mg qd.Continu e rehab as able.Monit or sxs. Mixed anxi ety and depressive disorder 260077248 F41.8 Mood goodContin ue bupropion SR 150 mg qd and mirtazapin e 7.5 mg qhsMonitor mood.Psych follows Atrial fibrillation 4943 6004 I48.0 Rate remains in good control on no rate controllin g meds.Leonora nue eliquis 2.5 mg BID for AC.Monitor HR and bleeding risk. Type 2 russel betes mellitus 43013577 E11.9 Last HgA1C 7.6 in 03/2022.Sug ars in adequate control on diet control with occ. SSI.Monito r fingerstic ks TID, due for recheck of HgA1C, forgot to order. Gastroesop hageal reflux disease without esophagitis 471917509 K21.9 No current sxs.Contin ue omeprazole 40 mg BID.Monito r sxs Hypothyroidism 86284452 E03.8 TSH WNL.Contin ue levothyrox ine 225 mcg qdMonitor TSH yearly. Eczema 92658732 L30.9 Much improved.C ontinue triamcinol one 0.1 % cream BID and house moisturize r qdMonitor Neuropathy 912493129 G62 .89 Gabapentin was increased to 200 mg BID on 12/14/23Som e improvemen t since then.Leonora nue other pain meds as above also.Monit or. Pneumonia 352011648 J18. 9 02/17: chest xray showed bilateral [...] rage fluid hydration. Vitamin D deficiency 347 85127 E55.9 12/06:Vit D level 20.4 - this is lower than previous levelwas taking cholecalci ferol 1000 unit daily -will increases to 50,000 unit weekly on thursday.patricia parkinson recheck in 2 months. [id number] BRYAN BERNARDO, NELDA HAYNES [address] [place] [address] 02/25/2024 10:46:10 02/29/2024 16:18:54 Edema 220076141 R60.[address] xray did not show [...] restrictio nFurther work up as indicated Hypokalemia 22971267 E87 .6 02/21:Impro thomas 3.4continu e kcl 30 meq daily. Chronic pain 38160200 G8 9.29 Remains at baseline.C ontinue fentanyl patch 50 mcg q 72 hrs, salonpas patch to right shoulder qd, APAP 1000 mg TID, tramadol 25 mg BID, tizanidine 2 mg BID, and prednisone 10 mg qd.Continu e rehab as able.Monit or sxs. Mixed anxi ety and depressive disorder 331362160 F41.8 Mood goodContin ue bupropion SR 150 mg qd and mirtazapin e 7.5 mg qhsMonitor mood.Psych follows Atrial fibrillation 4943 6004 I48.0 Rate remains in good control on no rate controllin g meds.Leonora nue eliquis 2.5 mg BID for AC.Monitor HR and bleeding risk. Type 2 russel betes mellitus 44693696 E11.9 Last HgA1C 7.6 in 03/2022.Sug ars in adequate control on diet control with occ. SSI.Monito r fingerstic ks TID, due for recheck of HgA1C, forgot to order. Gastroesop hageal reflux disease without esophagitis 187643438 K21.9 No current sxs.Contin ue omeprazole 40 mg BID.Monito r sxs Hypothyroidism 07577614 E03.8 TSH WNL.Contin ue levothyrox ine 225 mcg qdMonitor TSH yearly. Eczema 34615251 L30.9 Much improved.C ontinue triamcinol one 0.1 % cream BID and house moisturize r qdMonitor Neuropathy 134030156 G62 .89 Gabapentin 200 mg BIDreports bilateral lower extremity pain- noted with swelling >in LLE than RLE-awaiti ng ultrasound to r/o DVT. due to be done today at 3 pmPt willing to try diclofenac gel for lower extremity to see it helps with pain. Pneumonia 237252683 J18. 9 02/17: chest xray showed bilateral [...] rage fluid hydration. Vitamin D deficiency 347 57485 E55.9 12/06:Vit D level 20.4 - this is lower than previous levelwas taking cholecalci ferol 1000 unit daily -will increases to 50,000 unit weekly on thursday.patricia parkinson recheck in 2 months. [id number] NELDA MANSFIELD [address] [address] 02/29/2024 18:11:58 03/01/2024 13:10:29 Pneumonia 310854442 J18.9 breathing is easy and unlabored: chest xray showed bilateral airspace opacities. No pleural effusion.c ontinue augmentin 500 mg TID until 03/04 and azithromyc in 500 mg for 1 day and then continue 250 mg for 4 days .check VS q shiftencou rage fluid hydration. [id number] NELDA MANSFIELD [address] [address] 03/16/2024 10:26:05 03/18/2024 10:30:33 Pneumonia 309750636 J18.9 completed abxbreathi ng is easy and unlabored Mixed anxi ety and depressive disorder 233469829 F41.8 Mood is stable.Con tinue:bupr opion SR 150 mg qdmirtazap ine 7.5 mg qhs-03/14 seen by psych with recommenda tion for GDR for mirtazapin e now ordered at 5 mg hs. patient in agreement. Monitor mood. [id number] NELDA MANSFIELD [address] [place] [address] 03/23/2024 11:08:46 03/31/2024 14:26:29 Edema 984298997 R60.0 Marked tonight.Co ntinue furosemide 40 mg qd and metolazone 2.5 mg qd on T, Th, SaMonitor sxs. Chronic pain 53112559 G8 9.29 Remains at baseline.C ontinue fentanyl patch 50 mcg q 72 hrs, salonpas patch to right shoulder qd, APAP 1000 mg TID, tramadol 25 mg BID, tizanidine 2 mg BID, and prednisone 10 mg qd.Continu e rehab as able.Monit or sxs. Mixed anxi ety and depressive disorder 593555555 F41.8 Continue bupropion SR 150 mg qd and mirtazapin e 7.5 mg qhsMonitor mood.Psych follows Atrial fibrillation 4943 6004 I48.0 Continue eliquis 2.5 mg BID for AC.Monitor HR and bleeding risk. Type 2 russel betes mellitus 28228389 E11.9 continue lantus 15 units at HSmonitor FS Gastroesop hageal reflux disease without esophagitis 714973484 K21.9 No current sxs.Contin ue omeprazole 40 mg BID.Monito r sxs Hypothyroidism 37765799 E03.8 TSH WNL.Contin ue levothyrox ine 175 mcgMonitor TSH yearly. Eczema 76357550 L30.9 Much improved.C ontinue triamcinol one 0.1 % cream BID and house moisturize r qdMonitor Neuropathy 373302287 G62 .89 Gabapentin 200 mg BIDMonitor . Hypokalemia 34826315 E87 .6 continue kcl 30 meq daily. Vitamin D deficiency 347 96122 E55.9 5/13 Vit D level 20.4 - this is lower than previous levelwas taking cholecalci ferol 1000 unit daily-incr eased to 50,000 unit weekly on thursday.patricia parkinson recheck vit d level on next lab day. [id number] NELDA MANSFIELD [facility] [address] [place] [address] 03/29/2024 10:37:33 03/31/2024 14:35:20 Mixed anxiety and depressive disorder 333342921 F41.8 Mood is stable todayConti nue:buprop ion SR 150 mg qdwith trial gdr off mirtazapin e 7.5 mg qhs-decrea sed to 3.75 mgMonitor mood, patient will report unwanted side effects of gdr such as increased anxiety, restlessne ss, insomnia [id number] NELDA MANSFIELD [facility] [address] [place] [address] 04/26/2024 14:44:48 05/02/2024 13:49:37 Cellulitis of left lower limb 9810854814 7855090 L03.116 Met sepsis criteria due to 101.5 ? ? ?F, WBC 19.2recent ly started on Keflex for left lower extremity cellulitis on 04/15.CT chest without any focal findings of pneumonia. s/p iv van and zosyndisch arge on take Augmentin till 04/24/24 Extravasat ion of intravenous contrast medium 999512935 T80.818A In acute care found to have left arm swelling tx conservati vely with warm compress and elevation. Atrial fibrillation 4943 6004 I48.0 Continue eliquis 2.5 mg BID for AC.Monitor HR and bleeding risk. Hypothyroidism 29342352 E03.8 TSH WNL.Contin ue levothyrox ine 175 mcgMonitor TSH yearly. Gastroesop hageal reflux disease without esophagitis 037227412 K21.9 No current sxs.Contin ue omeprazole 40 mg BID.Monito r sxs Osteoarthritis 529282688 M15.0 lidocaine patch right shoulder.f entanyl 50 mcg patch q72 hrAPAP 1000 mg tidtramado l 25 mg bid prnglucosa mine 500 mg tid Type 2 russel betes mellitus 85716531 E11.9 continue lantus 15 units at [facility] FS [id number] NELDA MANSFIELD [address] [place] [address] 05/02/2024 09:59:17 05/03/2024 11:50:42 Cellulitis of left lower limb 2873930829 4989134 L03.116 05/02: see hpiLLE edema and pain, [...] 04/24/24 Extravasat ion of intravenous contrast medium 334004556 T80.818A In acute care found to have left arm swelling tx conservati vely with warm compress and elevation. Atrial fibrillation 4943 6004 I48.0 Continue eliquis 2.5 mg BID for AC.Monitor HR and bleeding risk.repor table sx reviewed. Hypothyroidism 33544235 E03.8 TSH WNL.Contin ue levothyrox ine 175 mcgMonitor TSH yearly. Gastroesop hageal reflux disease without esophagitis 312382059 K21.9 No current sxs.Contin ue omeprazole 40 mg BID.Monito r sxs Osteoarthritis 297449272 M15.0 fentanyl 50 mcg patch q72 hrAPAP 1000 mg tidtramado l 25 mg bid prnglucosa mine 500 mg tid Type 2 russel betes mellitus 68572449 E11.9 continue lantus 15 units at [facility] [id number] NELDA MANSFIELD [address] [place] [address] 05/05/2024 10:15:43 05/10/2024 15:49:53 Cellulitis of left lower limb 5147140183 1016178 L03.116 05/05: Ultrasound results reviewed, negative for [...] reviewed. Gastroesop hageal reflux disease without esophagitis 659975548 K21.9 stableNo current sxs.Contin ue omeprazole 40 mg BID.Monito r sxs Osteoarthritis 966485007 M15.0 stablefent anyl 50 mcg patch q72 hrAPAP 1000 mg tidtramado l 25 mg bid prn Type 2 russel betes mellitus 33426492 E11.9 continue lantus 15 units at [facility] FS [id number] NELDA MANSFIELD [address] [place] [address] 05/09/2024 11:51:06 05/10/2024 16:10:25 Cellulitis of left lower limb 4629300221 1286946 L03.116 resolved Atrial fibrillation 4943 6004 I48.0 stable without sx.Continu e eliquis 2.5 mg BID for AC.Monitor HR and bleeding risk.repor table sx reviewed. Gastroesop hageal reflux disease without esophagitis 736105628 K21.9 stableNo current sxs.Contin ue omeprazole 40 mg BID.Monito r sxs Osteoarthritis 591284636 M15.0 stablefent anyl 50 mcg patch q72 hrAPAP 1000 mg tidtramado l 25 mg bid Type 2 russel betes mellitus 86086644 E11.9 continue lantus 15 units at [facility] FS- mainly under 200sshe is without hypo/hyper glucose sx. Edema 910179128 R60.0 BLE decreased edema note, she is wearing wilma wrapsconti nue torsemide 20 mg daily and metolazone as ord. [id number] NELDA MANSFIELD [facility] e [address] [facility] [place] [address] 05/12/2024 11:47:54 05/13/2024 11:46:56 Atrial fibrillation 06662219 I48.0 stable without sx.Continu e eliquis 2.5 mg BID for AC.Monitor HR and bleeding risk.repor table sx reviewed. Gastroesop hageal reflux disease without esophagitis 460733887 K21.9 stableNo current sxs.Contin ue omeprazole 40 mg BID.Monito r sxs Osteoarthritis 152309338 M15.0 stablefent anyl 50 mcg patch q72 hrAPAP 1000 mg tidtramado l 25 mg bid Type 2 russel betes mellitus 78451501 E11.9 continue lantus 15 units at [facility] FS- mainly under 200sshe is without hypo/hyper glucose sx. Edema 954649821 R60.0 BLE decreased edema note, she is wearing wilma wrapsconti nue torsemide 20 mg daily and metolazone as ord. Spinal roni nosis of lumbar region 86844391 M48.062 fentanyl patch 50 mcgprednis one 10 mg daily - taper to start 05/16/24de creasing by 1 mg per week. [id number] NELDA MANSFIELD [address] [address] 05/16/2024 08:25:38 05/18/2024 09:23:51 Atrial fibrillation 46884759 I48.0 stable without sx.Continu e eliquis 2.5 mg BID for AC.Monitor HR and bleeding risk.repor table sx reviewed. Gastroesop hageal reflux disease without esophagitis 968261328 K21.9 stableNo current sxs.Contin ue omeprazole 40 mg BID.Monito r sxs Osteoarthritis 544368041 M15.0 stablefent anyl 50 mcg patch q72 hrAPAP 1000 mg tidtramado l 25 mg bid Type 2 russel betes mellitus 78105759 E11.9 continue lantus 15 units at [facility] FS- mainly under 200sshe is without hypo/hyper glucose sx. Edema 158006137 R60.0 BLE decreased edema note, she is wearing wilma wrapsconti nue torsemide 20 mg daily and metolazone as ord. Spinal orni nosis of lumbar region 56664086 M48.062 fentanyl patch 50 mcgprednis one 10 mg daily - taper to start 05/16/24de creasing by 1 mg per week. Itching of skin 45033571 0 L29.9 left shoulder is without redness or rashencour aged to apply lotion dailywill start claritin 10 mg daily. [id number] NELDA MANSFIELD [address] [address] 05/19/2024 11:11:15 05/23/2024 15:12:03 Atrial fibrillation 95017118 I48.0 stable without sx.Continu e eliquis 2.5 mg BID for AC.Monitor HR and bleeding risk.repor table sx reviewed. Gastroesop hageal reflux disease without esophagitis 270536658 K21.9 stableNo current sxs.Contin ue omeprazole 40 mg BID.Monito r sxs Osteoarthritis 287943065 M15.0 stablefent anyl 50 mcg patch q72 hrAPAP 1000 mg tidtramado l 25 mg bid Type 2 russel betes mellitus 41548831 E11.9 continue lantus 15 units at [facility] FS- mainly under 200sshe is without hypo/hyper glucose sx. Edema 879018202 R60.0 BLE decreased edema note, she is wearing wilma wrapsconti nue torsemide 20 mg daily and metolazone as ord. Spinal roni nosis of lumbar region 25465628 M48.062 fentanyl patch 50 mcgprednis one 10 mg daily - taper to start 05/16/24de creasing by 1 mg per week. Itching of skin 29701445 0 L29.9 left shoulder is without redness or rashencour aged to apply lotion dailywill start claritin 10 mg daily. [id number] NELDA MANSFIELD [address] [address] 05/23/2024 07:53:51 05/24/2024 13:52:57 Atrial fibrillation 30639786 I48.0 stable without sx.Continu e eliquis 2.5 mg BID for AC.Monitor HR and bleeding risk.repor table sx reviewed. Gastroesop hageal reflux disease without esophagitis 867993880 K21.9 stableNo current sxs.Contin ue omeprazole 40 mg BID.Monito r sxs Osteoarthritis 967031835 M15.0 stablefent anyl 50 mcg patch q72 hrAPAP 1000 mg tidtramado l 25 mg bid Type 2 russel betes mellitus 43374518 E11.9 continue lantus 15 units at [facility]- mainly under 200sshe is without hypo/hyper glucose sx. Edema 011783371 R60.0 BLE decreased edema note, she is wearing wilma wrapsconti nue torsemide 20 mg daily and metolazone as ord. Spinal roni nosis of lumbar region 89459507 M48.062 fentanyl patch 50 mcgprednis one 10 mg daily - taper to start 05/16/24de creasing by 1 mg per week. Itching of skin 74635072 0 L29.9 left shoulder is without redness or rashencour aged to apply lotion dailywill start claritin 10 mg daily. [id number] NELDA MANSFIELD [address] [place] [address] 05/27/2024 07:54:05 05/30/2024 13:39:41 Atrial fibrillation 47434785 I48.0 stable without sx.Continu e eliquis 2.5 mg BID for AC.Monitor HR and bleeding risk.repor table sx reviewed. Gastroesop hageal reflux disease without esophagitis 159679089 K21.9 stableNo current sxs.Contin ue omeprazole 40 mg BID.Monito r sxs Osteoarthritis 057096632 M15.0 stablefent anyl 50 mcg patch q72 hrAPAP 1000 mg tidtramado l 25 mg bid Type 2 russel betes mellitus 02063049 E11.9 continue lantus 15 units at [facility]- mainly under 200sshe is without hypo/hyper glucose sxwill need updated A1c as we taper off prednisone Edema 087272075 R60.0 improved with compressio n stockings. continue torsemide 20 mg daily and metolazone as ord. Spinal roni nosis of lumbar region 59558527 M48.062 fentanyl patch 50 mcgprednis one 10 mg daily - tapering off 1 mg per weekdecrea sing by 1 mg per week. Itching of skin 72359088 0 L29.9 stableleft shoulder is without redness or rashencour aged to apply lotion dailywill start claritin 10 mg daily. [id number] NELDA MANSFIELD [facility] [address] [place] [address] 06/02/2024 09:27:55 06/06/2024 12:53:38 Atrial fibrillation 73055819 I48.0 stable without sx.Continu e eliquis 2.5 mg BID for AC.Monitor HR and bleeding risk.repor table sx reviewed. Gastroesop hageal reflux disease without esophagitis 575492657 K21.9 reports hypogastri c non radiating pain+ nausea no vomitinNo current sxs.Contin ue omeprazole 40 mg BID.Monito r sxs Osteoarthritis 790895967 M15.0 stablefent anyl 50 mcg patch q72 hrAPAP 1000 mg tidtramado l 25 mg bid Type 2 russel betes mellitus 81024891 E11.9 stablecont inue l[facility]us [facility] at [facility] [facility]- mainly under 200sshe is without hypo/hyper glucose sx Edema [id number] R60.0 improved with compressio n stockings. continue torsemide 20 mg daily and metolazone as ord. Blister of lower leg without infection [id number] S80.822A initially fluid filled with clear liquidnow burst-anais ent recently tx for cellulitis , I prefer wound to be tx with and antispetic nursing ord to cleanse with NS 0r warm soap and water dialy, paint with betadine with non adhesive dressing and kerlix. [id number] NELDA MANSFIELD [place] [address] [place] [phone] 06/06/2024 08:41:07 06/07/2024 11:48:57 Atrial fibrillation [id number] I48.0 stable without sx.Continu e eliquis 2.5 mg BID for AC.Monitor HR and bleeding risk.repor table sx reviewed. Gastroesop hageal reflux disease without esophagitis [id number] K21.9 No current sxs.Contin ue omeprazole 40 mg BID.Monito r sxs Osteoarthritis [id number] M15.0 stablefent anyl 50 mcg patch q72 hrAPAP 1000 mg tidtramado l 25 mg bid Type 2 russel betes mellitus 48929469 E11.9 stablecont inue lantus 15 units at [facility]- mainly under 200sshe is without hypo/hyper glucose sx Edema 074873615 R60.0 continue torsemide 20 mg daily and metolazone as ord. Blister of lower leg without infection 98843539 S80.822A initially fluid filled with clear liquidnow burst-anais ent recently tx for cellulitis , I prefer wound to be tx with and antispetic as well.adriani asia ord to cleanse with NS 0r warm soap and water dialy, paint with betadine cover with xeroform dressing and kerlix. [id number] NELDA MANSFIELD [address] [address] 06/16/2024 11:11:20 06/21/2024 11:07:01 Edema 150508067 R60.0 continue torsemide 20 mg daily and metolazone as ord. Blister of lower leg without infection 88037943 S80.822A initially fluid filled with clear liquidnow [...] recs to continue current tx ords. Dysuria 38120731 R30.0 send urine for UA with C&Swater encouraged to flush out toxins Fatigue 04071952 R53.83 recheck bmp, cbc, TSH,iron , ammonia and Vit B & D levels on 06/17 [id number] NELDA MANSFIELD [address] [address] 06/27/2024 12:04:26 06/30/2024 11:21:08 Cellulitis of right lower limb [id number] 9016977 L03.115 2/2 diabetes and decreased skin integrity from venous stasis and chronic prednisone usetx with IV ancef in acute carecomple cassie po abx keflex on 06/24follo wed by Wound Venous ins ufficiency of leg 466143453 I87.2 chronic BLE edema/RLE acute DVT /right almanza erupted skin blisterdis cussed with nursing, continue eliquis and wound tx with xeroform Acute deep venous thrombosis of femoral vein 7194559494 23514 I82.419 non occlusive/ RLEon eliquis 5 mg BID Chronic heart failure 48 049815 I50.9 acute on chronic/el evated BNP tx with IV lasixCXR showed interstiti al markings but difficult to interpret due to underlying fibrosisco ntinue torsemide and metolazone monitor labs Edema 127958140 R60.0 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 [id number] NELDA MANSFIELD [facility] [address] [place] [address] [place] [address] 06/30/2024 08:36:09 07/01/2024 12:09:02 Cellulitis of right lower limb [id number] 8448242 L03.115 completed abxdenies any pain, per nsg no erythema or warmth Venous ins ufficiency of leg 544503070 I87.2 chronic BLE edema/RLE acute DVT /right almanza erupted skin blisterdis cussed with nursing, continue eliquis and wound tx Acute deep venous thrombosis of femoral vein 0554424494 70285 I82.419 non occlusive/ RLEon eliquis 5 mg BID Chronic heart failure 48 615360 I50.9 acute on chronic/el evated BNP tx with IV lasixCXR showed interstiti al markings but difficult to interpret due to underlying fibrosisco ntinue torsemide and metolazone baseline crackles with hx of pulm. 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 Wound 949732112 T14.90 XA see pi2/2 to erupted blisterfol lowed by wound MD with recent changes to oil emulsion.r leticia provided why tx was changedwil l resume previous tx order of NS and betadine per patient request and have wound re evaldiscus sed with nursing [id number] NELDA MANSFIELD [facility] [address] [place] [address] [place] [address] 07/04/2024 10:17:37 07/05/2024 14:29:23 Venous insufficiency of leg 734504937 I87.2 stablechro gavin BLE edema/RLE acute DVT /right almanza erupted skin blisterdis cussed with nursing, continue eliquis and wound tx Acute deep venous thrombosis of femoral vein 8162197970 83771 I82.419 non occlusive/ RLEon eliquis 5 mg BID Chronic heart failure 48 133640 I50.9 acute on chronic/el evated BNP tx with IV lasixCXR showed interstiti al markings but difficult to interpret due to underlying fibrosisco ntinue torsemide and metolazone baseline crackles with hx of pulm. fibrosismo nitor labs Edema 066191492 R60.0 chronic/st abl;e with no increase on exam todayconsi jeff referral to lymphedema clinic - she often c/o pain, she is at increase risk for recurrent infection. Wound 326148257 T14.90 XA see pi2/2 to erupted blisterfol lowed by wound MD with recent changes to oil emulsion.r leticia provided why tx was changedwil l resume previous tx order of NS and betadine per patient request and have wound re evaldiscus sed with nursing [id number] NELDA MANSFIELD [address] [place] [address] [facility] [place] [address] 07/07/2024 08:16:53 07/08/2024 13:27:39 Venous insufficiency of leg 067826269 I87.2 stablechro gavin BLE edema/RLE acute DVT /right almanza erupted skin blisterdis cussed with nursing, continue eliquis and wound txseen by wound MD with new order changes made in pcc. Acute deep venous thrombosis of femoral vein 6666018999 00476 I82.419 non occlusive/ RLEon eliquis 5 mg BID Chronic heart failure 48 514123 I50.9 continue torsemide and metolazone baseline crackles with hx of pulm. fibrosismo nitor labs Edema 108047522 R60.0 chronic/st ableconsid er referral to lymphedema clinic - she often c/o pain, she is at increase risk for recurrent infection. [id number] NELDA MANSFIELD [address] [place] [address] [place] [place] [address] 07/11/2024 10:40:35 07/12/2024 12:07:39 Venous insufficiency of leg 925623764 I87.2 stablechro gavin BLE edema/RLE acute DVT /right almanza erupted skin blisterdis cussed with nursing, continue eliquis and wound txfollowed by wound MD/continu e current tx orders. Acute deep venous thrombosis of femoral vein 7766815812 26895 I82.419 non occlusive/ RLEon eliquis 5 mg BID Chronic heart failure 48 710162 I50.9 baseline BLE edema, otherwise no worsening edema notedconti nue torsemide and metolazone baseline crackles with hx of pulm. fibrosismo nitor labs Edema 242876553 R60.0 chronic/st ableconsid er referral to lymphedema clinic - she often c/o pain, she is at increase risk for recurrent infection. 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 Mood is stable todayConti nue:buprop ion [...] Member ID Guarantor Name 07/07/2024 2 [place] [facility] [place] [id number] [place] Alcar[place] 07/07/2024 1 [place] [facility] [place] Alcar[place] [id number] [place] Alcaraz 07/11/2024 2 [place] [facility] [place] [id number] [place] Alcaraz 07/11/2024 1 [place] [facility] [place] Alcaraz [id number] [place] Alcaraz 07/15/2024 2 [place] [facility] [place] Alcar[place] [id number] [place] Alcaraz 07/15/2024 1 [place] [facility] [place] Alcaraz [id number] [place] Alcaraz 07/18/2024 2 [place] [facility] [place] Alcar[place] [id number] [place] Alcaraz 07/18/2024 1 [place] [facility] [facility] [place] Rodneyell [id number] [place] Alcaraz 07/21/2024 2 [place] [facility] [place] [id number] [place] Alcaraz 07/21/2024 1 [place] [facility] [place] Rodneyell [id number] [place] Alcaraz Notes Date Note Type Note [...] and history of PE NELDA MANSFIELD [address] [facility], [address], [place], [address], [facility] 07/07/2024 15:22:09 07/11/2024 text/html [place] is an [...] and history of PE NELDA MANSFIELD [address] [facility], [address], [place], [address], [employer] 07/11/2024 14:31:09 07/15/2024 text/html This is an 84 yr old women seen for acute rounding visit, she is reporting dysuria for a few days and states sx are similar to past UTI complaints. she denies any frequency or urgency, she has been afebrile. NELDA MANSFIELD [address] [facility], [address], [place], [address], [employer] 07/15/2024 12:35:05 07/18/2024 text/html This is an 84 yr old women seen for acute rounding visit for follow for dysuria. Recent UA negative for infection, pt updated on results, she now reports that she is no longer experiencing sx.she encouraged to increase fluid preferably water. NELDA MANSFIELD [address] [facility], [address], [place], [address], [employer] 07/18/2024 12:28:32 07/21/2024 text/html This is an 84 yr old women seen for acute rounding visit. She has been at baseline in NAD, today she is doing ok, there are no acute concerns. 07/21/24 Tested negative for covid NELDA MANSFIELD [address] [facility], [address], [place], [address], [employer] 07/21/2024 15:46:48 OBGyn Episode No OBEpisode recorded.
[2024-11-02 13:36] LABS: Adenovirus PCR Not Detected (Not Detect.); Bordetella parapertussis PCR Not Detected (Not Detect.); Bordetella pertussis PCR Not Detected (Not Detect.); Chlamydia pneumoniae PCR Not Detected (Not Detect.); Coronavirus 229E PCR Not Detected (Not Detect.); Coronavirus HKU1 PCR Not Detected (Not Detect.); Coronavirus NL63 PCR Not Detected (Not Detect.); Coronavirus OC43 PCR Not Detected (Not Detect.); Human metapneumovirus PCR Not Detected (Not Detect.); Influenza A PCR Not Detected (Not Detect.); Influenza B PCR Not Detected (Not Detect.); Mycoplasma pneumoniae PCR Not Detected (Not Detect.); Parainfluenza 1 PCR Not Detected (Not Detect.); Parainfluenza 2 PCR Not Detected (Not Detect.); Parainfluenza 3 PCR Not Detected (Not Detect.); Parainfluenza 4 PCR Not Detected (Not Detect.); RSV PCR Detected (Not Detect.); Rhino/Enterovirus PCR Not Detected (Not Detect.)
[2024-11-02 14:09] LABS: Influenza A H1 PCR Not Detected (Not Detect.); Influenza A H1-2009 PCR Not Detected (Not Detect.); Influenza A H3 PCR Not Detected (Not Detect.); SARS-CoV-2 PCR Not Detected (Not Detect.)
== END 2024-11-02 09:31 | disposition home or self-care (01) ==
LOC: HO.MMNH3L 09:30
PROVIDERS: Visit Provider Nurse Practitioner
DX: R05.1 Acute cough (principal)
CPT/HCPCS: 87633

== ENCOUNTER 2024-11-14 05:38 | Outpatient (REF) | payer MEDICARE, MEDICAID, SELFPAY ==
[2024-11-14 06:35] LABS: Alanine Aminotransferase 21 U/L (0-31); Albumin Level 2.9 g/dL (3.5-5.0); Alkaline Phosphatase 65 U/L (39-117); Anion Gap 15 (12-20); Aspartate Amino Transferase 36 U/L (5-31); Bilirubin Total 0.4 mg/dL (0.0-1.0); Blood Urea Nitrogen 31 mg/dL (9-16); Calcium 8.8 mg/dL (8.4-10.2); Carbon Dioxide 25 mmol/L (22-29); Chloride 106 mmol/L (96-108); Estimated Glomerular Filt Rate 46; Glucose Random 158 mg/dL (60-115); Iron 104 mcg/dL (30-160); Percent Iron Saturation 43 % (15-50); Potassium 5.1 mmol/L (3.3-5.1); Sodium 141 mmol/L (135-145); Total Iron Binding Capacity 240 mcg/dL (228-428); Total Protein 6.2 g/dL (6.5-8.0); Unsaturated Iron Binding 136 ug/dL
[2024-11-14 06:44] LABS: Basophils Percent Auto 0.5 % (0-2); Eosinophils Absolute Auto 0.1 X10*3/uL (0.0-0.4); Eosinophils Percent Auto 2.3 % (0-4); Hematocrit 26.5 % (37.0-47.0); Hemoglobin 8.3 g/dl (12.0-16.0); Imm Gran Abs Auto 0.04 X10*3/uL (0.00-0.03); Imm Gran Pct Auto 0.7 % (0.0-0.4); Lymphocytes Absolute Auto 1.9 X10*3/uL (1.2-4.9); Lymphocytes Percent Auto 30.9 % (20-40); MANUAL DIFF FLAG SCAN; Mean Corpuscular HGB Conc 31.3 g/dl (31.0-35.0); Mean Corpuscular Hemoglobin 31.1 pg (27.0-33.0); Mean Corpuscular Volume 99.3 fL (80.0-98.0); Monocytes Absolute Auto 0.6 X10*3/uL (0.1-1.2); Monocytes Percent Auto 9.2 % (2-11); Neutrophils Absolute Auto 3.4 x10*3/uL (2.0-8.3); Neutrophils Percent Auto 56.4 % (45-73); PLT CLUMP 1; Red Blood Count 2.67 X10*6/uL (4.20-5.50); SCAN SMEAR FLAG 1
[2024-11-14 06:54] LABS: White Blood Count 6.3 X10*3/uL (4.8-10.8)
[2024-11-14 06:56] LABS: SLIDE REVIEW VERIFIED
== END 2024-11-14 05:39 | disposition home or self-care (01) ==
LOC: HO.MMNH3L 05:38
PROVIDERS: Visit Provider Student in an Organized Health Care Education/Training Program
DX: L03.115 Cellulitis of right lower limb (principal)
CPT/HCPCS: 36415; 80053; 83540; 85025

== ENCOUNTER 2024-11-23 13:02 | Outpatient (REF) | payer MEDICARE, MEDICAID, SELFPAY ==
--- OUTSIDE RECORDS SUMMARY | 2024-11-23 14:20 | XMS_ITS | Data Portability ---
Author Organization [place] - [facility], Main Office Address [address] [facility], [address] [place] [address] Care Team Providers Care Wet End Supervisor Name Role Phone KAREEM HAYNES 3RD FLOOR OTHER [phone] Assessment Encounter Date Assessment Date Assessment LastModified [...] Address Organization Details Recorded Time Severe pain [id number] Active 2021 back pain BRYANNA URBANO, MIKIE [address] [facility], [address], [place], [address], [employer] [facility] 2 13:15:21 Adult failure to thrive syndrome 678859958 Active 2021 BRYANNA URBANO NP [address], [address], [place], [address], [facility] 2 13:15:35 Fall Active 2021 BRYANNA URBANO NP [address], [address], [place], [address], [facility] 2 13:15:44 Gastroes ophageal reflux disease without esophagi tis 730333823 Active 2021 BRYANNA URBANO NP [address], [address], [place], [address], [facility] 2 13:16:01 Osteoart hritis 128945922 Active 2021 BRYANNA URBANO NP [address] [facility], [address], [place], [address], [facility] 2 13:16:10 Mixed anxiety and depressi ve disorder 587376087 Active 2021 BRYANNA URBANO NP [address] [facility], [address], [place], [address], [facility] 3 10:40:32 Hypothyr oidism 25796881 Active 2021 BRYANNA URBANO NP [address] [facility], [address], [place], [address], [facility] 2 13:16:28 Osteopor osis 34987447 Active 2021 BRYANNA URBANO NP [address], [address], [place], [address], [facility] 2 13:17:10 Atrial fibrilla tion 56212584 Active 2021 BRYANNA URBANO, MIKIE [address], [address], [place], [address], [facility] 2 14:21:30 Hyperlip idemia 38293501 Active 2021 BRYANNA URBANO, INDUSTRIAL [employer]ATIONS WORKER [address], [address], [place], [address], [facility] 2 14:21:52 Spinal stenosis of lumbar region 21962768 Active 2021 Ana Damon MD [address], [address], [place], [address], [facility] 2 19:13:30 Edema 504472287 Active 2021 BRYANNA URBANO, INDUSTRIAL RELATIONS WORKER [address], [address], [place], [address], [facility] 2 13:22:11 Hypokale doretha 67663322 Active 2021 Ana Damon MD [address] [facility], [address], [place], [address], [facility] 2 23:44:02 Pancreat itis 97825461 Active 2021 BRYANNA URBANO, IND[employer]RIAL RELATIONS WORKER [address] [facility], [address], [place], [address], [facility] 2 14:58:02 Generali zed osteoart hritis 943609648 Active 2021 Ana Damon MD [address] [facility], [address], [place], [address], [facility] 2 14:42:49 Contusio n 399180357 Active 2021 right buttock BRYANNA YOLIE, [employer] WORKER [address] [facility], [address], [place], [address], [facility] 3 12:37:52 COVID-19 413139854 Active 2021 BRYANNA YOLIE, INDUSTRIAL RELATIONS WORKER [address], [address], [place], [address], [facility] 2 10:44:44 Dislocat ion of shoulder joint 042796500 Active 2022 Margarette Awad, MIKIE [address], [address], [place], [address], [facility] 3 11:28:04 Chronic neck pain 83696289473 07 Active 2022 Ana Damon MD [address], [address], [place], [address], [facility] 3 21:36:27 Nausea 256337290 Active 2022 Ana Damon MD [address], [address], [place], [address], [facility] 3 21:36:31 Type 2 diabetes mellitus 18197288 Active 2022 Ana Damon MD [address], [address], [place], [address], [facility] 3 20:16:36 Contusio n of face 777208173 Active 2022 BRYANNA URBANO NP [address], [address], [place], [address], [facility] 3 12:37:45 Urinary tract infectio us disease 98756650 Active 2023 NELDA MANSFIELD [address], [place], [address], [facility] 4 14:59:19 Dyspnea 558853961 Active 2023 NELDA MANSFIELD [address], [place], [address], [facility] 4 22:03:33 Neuropat hy 374872198 Active 2023 NELDA MANSFIELD [address], [address], [place], [address], [facility] 4 22:17:58 Constipa tion 64954184 Active 2023 NELDA MANSFIELD [address], [address], [place], [address], [facility] 4 22:22:39 Chronic pain 64052524 Active 2023 Ana Damon MD [address], [address], [place], [address], [facility] 4 10:49:48 Cellulit is 492042800 Active 2023 NELDA MANSFIELD [address] [facility], [address], [place], [address], [facility] 4 09:09:15 Manav contreras 51295324 Completed 202306/06/2024 on predniso ne 10 mg daily NELDA MANSFIELD [address] [facility], [address], [place], [address], [facility] 4 15:48:25 Venous insuffic iency of leg 878282486 Active 2023 [address]L [address] [place] [address], [address], [place], [address], [facility] 4 02:16:11 Chronic heart failure 95302492 Active 2023 NELDA MANSFIELD [address] [place] [address], [address], [place], [address], [facility] 4 02:24:16 Problem Notes None recorded. Medical Equipment None Reported. Allergies Allergen ID Allergen Name Allergen Category Reaction Reaction Severity Criticality Documentation Date Start Date Code Code System Note Provider Name and Address Organization Details Recorded Time 12811 amitripty line medicatio n Not available Not available Not available 09/25/2021 704 RxNorm BRYANNA MIKIE URBANO [address] [facility], [address], [place], [address], [facility] 2 13:14:24 86772 morphine medicatio n Not available Not available Not available 09/25/2021 7052 RxNorm BRYANNA MIKIE URBANO [address] [facility], [address], [place], [address], [facility] 2 13:14:30 29064 oxycodone medicatio n Not available Not available Not available 09/25/2021 7804 RxNorm BRYANNA MIKIE URBANO [address] [facility], [address], [place], [address], [facility] 2 13:14:37 92859 Demerol medicatio n Not available Not available Not available 09/25/2021 94639 1 RxNorm BRYANNA YOLIE, IND[employer]RIAL RELATIONS WORKER [address], [address], [place], [address], [facility] 2 13:14:42 09595 Phenergan medicatio n Not available Not available Not available 09/25/2021 58466 8 RxNorm BRYANNA YOLIE, IND[employer]RIAL RELATIONS WORKER [address] [facility], [address], [place], [address], [facility] 2 13:14:50 08285 lactose food,medi cation Not available Not available Not available 09/25/2021 6211 RxNorm BRYANNA YOLIE, INDUSTRIAL RELATIONS WORKER [address] [facility], [address], [place], [address], [facility] 2 13:14:59 Medications Name Sig Start Date Stop Date [...] Updated DateTime 07/07/2024 162.56 cm NELDA MANSFIELD [address] [place] [address], [facility] [address], [place], [address], [facility] 07/07/2024 08:58:12 Date Recorded Body height Provider Name an d Address Organization Details Last Updated DateTime 07/11/2024 162.56 cm NELDA MANSFIELD [address] [facility], [address], [place], [address], [facility] 07/11/2024 14:23:34 Date Recorded Body height Heart rate Oxygen saturation Oxygen saturation in Arterial blood by Pulse oximetry Provider Name and Address Organization Details Last Updated DateTime 07/21/2024 162.56 cm 78 /min 95 % 95 % NELDA MANSFIELD [address] [facility], [address], [place], [address] , [facility] 07/21/2024 15:42:40 Social History Question Answer Notes LastModified by Organizat ion Details LastModified Time Tobacco Smoking Status Former Smoker can't remember when she quit Ana Damon MD [address] [facility], [address], [place], [address], [facility] [employer] [facility] 09/26/2021 19:09:18 Do You Have An Advance Directive? Yes Information not available 09/26/2021 What Is Your Level Of Alcohol Consumption? None Information not available 09/25/2021 What Is Your Code Status? DNR/DNI Information not available 09/25/2021 Where Do You Live? [facility]. Was Living With Son, But He Is Not Home During The Day. Information not available 05/29/2023 Legal Guardian? No Informati on not available 09/26/2021 Do You Have A Medical Power Of Cleaning Manager? Yes Invoked Information not available 09/26/2021 What [...] adjuvanted, quadrivalent, PF 05/21/2022 completed Dena maza, [facility] [employer] [facility] 08/17/2023 10:49:52 Influenza, adjuvanted, quadrivalent, PF 03/04/2023 completed Dena maza [place] - [facility] 08/17/2023 10:50:06 Past Encounters Encounter ID Performer Location Encounter Start Date Encounter Closed Date Diagnosis/Indication Diagnosis SNOMED-CT Code Diagnosis ICD10 Code Diagnosis Note [id number] BRYANNA URBANO NP [address] [address] 09/25/2021 09:13:56 09/30/2021 13:45:49 Severe pain 03992885 R52 fentanyl patch 50 mcgdilaudi d 1 mg q4hr prnprednis one 10 mg dailyrepos ition prnhospice consult and admission Osteoporosis 81604926 M8 1.0 methotrexa te 2.5 dronate 70 thursdaypred nisone 10 mg daily Osteoarthritis 274994535 M19.90 dilaudid 1 mg q4 hr prnfentany l 50 mcg patch Mixed anxi ety and depressive disorder 811174592 F41.8 wellbutrin xl 150 mg bid Hypothyroidism 55020850 E03.9 levothyrox ine 200 mcg daily Gastroesop hageal reflux disease without esophagitis 307827131 K21.9 omeprazole 40 mg daily Adult fail ure to thrive syndrome 280259176 R62.7 encourage po intake Fall W19.XXXA PT OT eval and treatfall precaution sfrequent safety checks Atrial fibrillation 4943 6004 I48.91 eliquis 5 mg bidlasix 40 mg daily Hyperlipidemia 60678501 E78.5 atorvastat in 40 mg daily [id number] MD KAREEM Whitaker [place] [address] [place] [address] [place] [address] 09/26/2021 15:54:36 09/30/2021 14:03:56 Osteoporosis 81294480 M81.0 Will d/c alendronat e Osteoarthritis 961384333 M15.0 Unclear what she is on MTX for, if it's OA or pulmonary fibrosis.C ontinue methotrexa te 2.5 mg weekly.Chelsi n control as above. Mixed anxi ety and depressive disorder 362070557 F41.8 Continue wellbutrin xl 150 mg BID.Monito r mood. Hypothyroidism 03717648 E03.8 With elevated TSH, but nl FT4. Will leave dosing as is for now, bayron. since pt is transition ing to hospice.Co ntinue levothyrox ine 200 mcg qd.No further labs. Gastroesop hageal reflux disease without esophagitis 208817785 K21.9 Continue omeprazole 40 mg qd.Monitor sxs/ Adult fail ure to thrive syndrome 172289894 R62.7 Continue oral supplement s as able. Fall W19.XXXA Unable to participat e in rehab.Cont inue fall precaution s.Monitor for safety. Atrial fibrillation 4943 6004 I48.0 Rate in good control on no rate controllin g meds.Leonora nue eliquis 5 mg BID for AC.Monitor HR and bleeding risk Hyperlipidemia 60572973 E78.49 Will d/c atorvastat inNo further labs Spinal roni nosis of lumbar region 60264668 M48.062 With continued distress, unclear how much is pain and how much is behavioral .Will start roxanol 5 mg q 4 hrs scheduled and q 1 hr prn. Hold for oversedati on.Continu e fentanyl patch 50 mcg q 72 hrs and dilaudid 1 mg q 4 hrs prnContinu e prednisone 10 mg qd.Hospice consult pending. [id number] MIKIE DUONG [address] [place] [address] 09/27/2021 10:49:34 09/30/2021 14:31:05 Mixed anxiety and depressive disorder 700534190 F41.8 wellbutrin xl 150 mg bid-pm dose is 50 mg a week decrease until donethen remeron can be startedris perdal 0.5 mg bidAIMs 0 Adult fail ure to thrive syndrome 406526107 R62.7 encourage po intakereme sonal 7.5 mg hs [id number] MIKIE DUONG [address] [place] [address] 09/30/2021 12:53:54 10/04/2021 13:57:38 Mixed anxiety and depressive disorder 168130790 F41.8 wellbutrin xl 150 mg bid-pm dose is 100 mg decrease for 7 days then discontinu ishan remeron can be startedris perdal 0.5 mg bid-decrea sed to 0.25 mg am, 0.5 mg hsAIMs 0 Adult fail ure to thrive syndrome 243959223 R62.7 encourage po intakereme sonal 7.5 mg hs when hs wellbutrin finished Spinal roni nosis of lumbar region 46502703 M48.062 fentanyl patch 50 mcg q72 daysdilaud id 1 mg q4hr prnprednis on 10 mg daily [id number] MD KAREEM Whitaker [place] [address] [place] [address] 10/01/2021 19:18:36 10/04/2021 14:59:14 Spinal stenosis of lumbar region 89481563 M48.062 Continue fentanyl patch 50 mcg q 72 hrs and dilaudid 1 mg q 4 hrs prnContinu e prednisone 10 mg qd.Reconsi jeff hospice consult if pt. not able to tolerate med changes as below. Mixed anxi ety and depressive disorder 322758846 F41.8 Continue Wellbutrin 150 mg qAM and PM dose 100 mg until 10/08 then d/c pm doseStart mirtazapin e 7.5 mg qhs on 10/08Contin ue risperdal 0.25 mg qam and 0.5 mg qhsMonitor effect. Adult fail ure to thrive syndrome 172121965 R62.7 encourage po intakeStar t remeron 7.5 mg hs when hs wellbutrin finished as above. [id number] MIKIE DUONG [address] [place] [address] 10/03/2021 10:04:53 10/09/2021 15:41:28 Adult failure to thrive syndrome 980763906 R62.7 encourage po intakereme sonal 7.5 mg hs when hs wellbutrin finished 10/08 Mixed anxi ety and depressive disorder 471474200 F41.8 wellbutrin xl 150 mg bid-pm dose is 100 mg decrease for 7 days then discontinu e 10/08then remeron can be startedris perdal 0.5 mg bid-decrea sed to 0.25 mg am, 0.5 mg hsAIMs 0 Severe pain 20548156 R52 fentanyl patch 50 mcgdilaudi d 1 mg q4hr prn-d/c due to lack of useprednis one 10 mg dailyrepos ition prnhospice consult and admissionr oxanol was d/c due to morphine allergy [id number] BRYANNA URBANO NP [address] [address] 10/09/2021 10:18:53 10/14/2021 14:25:24 Mixed anxiety and depressive disorder 626871555 F41.8 wellbutrin xl 150 mg bid-pm dose is 100 mg decrease for 7 days then discontinu e 10/08then remeron can be startedris perdal 0.5 mg hs-am dose d/cAIMs 0 Adult fail ure to thrive syndrome 869967891 R62.7 encourage po intakereme sonal 7.5 mg hs when hs wellbutrin finished 10/08 Severe pain 75552962 R52 fentanyl patch 50 mcgdilaudi d 1 mg q4hr prn-d/c due to lack of useprednis one 10 mg dailyrepos ition prnhospice consult and admissionr oxanol was d/c due to morphine allergy [id number] BRYANNA URBANO NP [address] [address] 10/11/2021 10:22:56 10/14/2021 15:05:22 Mixed anxiety and depressive disorder 722396733 F41.8 wellbutrin xl 150 mg bid-pm dose is 100 mg decrease for 7 days then discontinu e 10/08then remeron can be startedris perdal 0.5 mg hs-am dose d/cAIMs 0 Adult fail ure to thrive syndrome 167822934 R62.7 encourage po intakereme sonal 7.5 mg hs when hs wellbutrin finished 10/08 Severe pain 00712881 R52 fentanyl patch 50 mcgdilaudi d 1 mg q4hr prn-d/c due to lack of useprednis one 10 mg dailyrepos ition prnhospice consult and admissionr oxanol was d/c due to morphine allergy [id number] BRYANNA URBANO NP [address] [address] 10/14/2021 12:20:18 10/16/2021 14:26:14 Severe pain 28724922 R52 fentanyl patch 50 mcgprednis one 10 mg dailyrepos ition prnroxanol was d/c due to morphine allergy Mixed anxi ety and depressive disorder 776728301 F41.8 wellbutrin xl 150 mgremeron 7.5 mg dailyrispe rdal 0.5 mg hs-am dose d/cAIMs 0 Fall W19.XXXA PT OT eval and treatfall precaution sfrequent safety checks [id number] BRYANNA URBANO NP [address] [address] 10/16/2021 13:18:48 10/23/2021 10:49:11 Adult failure to thrive syndrome 951175379 R62.7 encourage po intakereme sonal 7.5 mg hs when hs wellbutrin finished 10/08 Mixed anxi ety and depressive disorder 050359419 F41.8 wellbutrin xl 150 mgremeron 7.5 mg dailyrispe rdal 0.5 mg hs-am dose d/cAIMs 0 Severe pain 67228074 R52 fentanyl patch 50 mcgprednis one 10 mg dailyrepos ition prnroxanol was d/c due to morphine allergy Edema 579318574 R60.9 lasix 40 mg daily will increase to bid for 7 days [id number] NELDA Gardiner [address] [address] 10/18/2021 11:22:25 10/23/2021 11:24:28 Adult failure to thrive syndrome 054271630 R62.7 Appetite improveden courage po intakereme sonal 7.5 mg QHSMonitor weights Mixed anxi ety and depressive disorder 999246992 F41.8 wellbutrin xl 150 mgremeron 7.5 mg dailyrispe rdal 0.5 mg hsMonitor moodPsych eval prn Severe pain 52158965 R52 fentanyl patch 50 mcgprednis one 10 mg dailyBack pain now well controlled Monitor Edema 229654969 R60.9 Lasix 40 mg BIDACE wraps BLEElevate legs as toleratedM onitor [id number] BRYANNA URBANO NP [address] [address] 10/21/2021 10:50:08 10/23/2021 11:52:29 Edema 274205969 R60.9 lasix 40 mg bidmetolaz one 2.5 mg tues, thursace wraps Severe pain 76375278 R52 fentanyl patch 50 mcgprednis one 10 mg dailyrepos ition prnroxanol was d/c due to morphine allergy [id number] BRYANNA URBANO NP [address] [address] 10/24/2021 10:43:36 10/29/2021 12:14:04 Edema 857192868 R60.9 lasix 40 mg bidmetolaz one 2.5 mg tues, thurs, add a dose sundayace wraps Adult fail ure to thrive syndrome 965135907 R62.7 encourage po intakereme sonal 7.5 mg hs Mixed anxi ety and depressive disorder 991680064 F41.8 wellbutrin xl 150 mgremeron 7.5 mg dailyrispe rdal 0.5 mg hs- decrease hs dose to 0.25 mgAIMs 0 [id number] BRYANNA URBANO NP [address] [address] 10/30/2021 10:59:13 11/05/2021 10:01:44 Adult failure to thrive syndrome 766254123 R62.7 encourage po intakereme sonal 7.5 mg hs Mixed anxi ety and depressive disorder 796293319 F41.8 wellbutrin xl 150 mgremeron 7.5 mg dailyrispe rdal 0.25 mg- discontinu eAIMs 0 Severe pain 19810073 R52 fentanyl patch 50 mcgprednis one 10 mg dailyrepos ition prnroxanol was d/c due to morphine allergy [id number] Ana Damon MD [address] [address] 11/19/2021 18:25:18 11/25/2021 15:04:26 Adult failure to thrive syndrome 572629269 R62.7 Doing much better. Wt. has been stable.Say s her appetite is good.Leonora nue mirtazapin e 7.5 mg qhs.Monito r wts. Mixed anxi ety and depressive disorder 767726176 F41.8 Mood good today.Cont inue wellbutrin XL 150 mg qd and mirtazapin e 7.5 mg qhsMonitor mood.Consu lt psych prn Severe pain 37756942 R52 Under good control on fentanyl patch 50 mcg q 3 days, prednisone 10 mg qd, and APAP prnRestart ing PT this week.Monit ro Edema 080819532 R60.0 Continue lasix 40 mg BID and metolazone 2.5 mg 2x/wk on & .Cont inue wilma wraps daily.Carmela tor Hypokalemia 83653553 E87 .6 With borderline low K+ for awhile. Has never been on K+ supplement .Will recheck next week and if still low will add KCL 10 meq qd.Monitor [id number] MIKIE DUONG [address] [place] [address] [place] [address] 12/12/2021 10:09:42 12/17/2021 16:08:08 Adult failure to thrive syndrome 364469240 R62.7 Doing much better. Wt. has been stable.Say s her appetite is good.Leonora nue mirtazapin e 7.5 mg qhs.Monito r wts. Mixed anxi ety and depressive disorder 270361603 F41.8 Mood good today.well butrin XL 150 mg qd and mirtazapin e 7.5 mg qhsMonitor mood.Consu lt psych prn Severe pain 80244972 R52 Under good control on fentanyl patch 50 mcg q 3 days, prednisone 10 mg qd, and APAP prnRestart ing PT this week.Monit ro Edema 834015117 R60.0 lasix 40 mg BIDmetolaz one 2.5 mg 2x/wk on & .Cont inue wilma wraps daily.Carmela tor Hypokalemia 11054672 E87 .6 With borderline low K+ for awhile. Has never been on K+ supplement .Will recheck next week and if still low will add KCL 10 meq qd.Monitor Atrial fibrillation 4943 6004 I48.0 eliquis 5 mg bidlasix 40 mg bid daily Gastroesop hageal reflux disease without esophagitis 975330726 K21.9 omeprazole 40 mg daily Hyperlipidemia 19671262 E78.49 atorvastat in 40 mg daily Hypothyroidism 22830926 E03.8 levothyrox ine 200 mcg daily Osteoarthritis 304781747 M15.0 fentanyl 50 mcg patch q72 hr Osteoporosis 56251239 M8 1.0 methotrexa te 2.5 dronate 70 thursdaypred nisone 10 mg daily Spinal roni nosis of lumbar region 31771811 M48.062 fentanyl patch 50 mcg q72 hourspredn isone 10 mg daily Fall W19.XXXA PT OT eval and treatfall precaution sfrequent safety checks [id number] MIKIE DUONG [address] [place] [address] 01/03/2022 14:55:57 01/06/2022 20:46:48 Pancreatitis 27308820 K85.90 monitor for symptomsmo nitor labs Adult fail ure to thrive syndrome 416008784 R62.7 Doing much better. Wt. has been stable.Say s her appetite is good.gary zapine 7.5 mg qhs.Monito r wts. Mixed anxi ety and depressive disorder 796242531 F41.8 Mood good today.well butrin XL 150 mg bidmirtaza pine 7.5 mg qhsMonitor mood.Consu lt psych prn Severe pain 69487271 R52 Under good control on fentanyl patch 50 mcg q 3 days,predn isone 10 mg qd,APAP 650 mg q4hr prnPT OT eval and treat prnMonitor Edema 863465028 R60.0 lasix 40 mg BIDmetolaz one 2.5 mg 2x/wk on & , thursday.Con tinue wilma wraps daily.Carmela tor Hypokalemia 03544698 E87 .6 With borderline low K+ for awhile. Has never been on K+ supplement .Monitor Atrial fibrillation 4943 6004 I48.0 eliquis 5 mg bidlasix 40 mg bid dailymetol azone 2.5 mg Gastroesop hageal reflux disease without esophagitis 327850023 K21.9 omeprazole 40 mg daily Hyperlipidemia 42006564 E78.49 atorvastat in 40 mg daily Hypothyroidism 79077886 E03.8 levothyrox ine 200 mcg daily Osteoarthritis 925739780 M15.0 fentanyl 50 mcg patch q72 hr Osteoporosis 92897259 M8 1.0 prednisone 10 mg daily Spinal roni nosis of lumbar region 17050095 M48.062 fentanyl patch 50 mcg q72 hourspredn isone 10 mg daily Fall W19.XXXA PT OT eval and treatfall precaution sfrequent safety checks [id number] BRYANNA URBANO NP [address] [address] 01/06/2022 10:28:02 01/09/2022 13:18:55 Edema 461424421 R60.0 lasix 40 mg BIDmetolaz one 2.5 mg 2x/wk on thursday.Con tinue wilma wraps daily.Carmela tor Pancreatitis 16007058 K8 5.90 monitor for symptomsmo nitor labs [id number] BRYANNA URBANOMIKIE [address] [address] 01/08/2022 12:46:02 01/10/2022 16:30:00 Edema 768581048 R60.0 lasix 40 mg BIDmetolaz one 2.5 mg 2x/wk on thursday.Con tinue wilma wraps daily-comp ression stockingsM onitor Pancreatitis 34050003 K8 5.90 monitor for symptomsmo nitor labs [id number] BRYANNA URBANO MIKIE [address] [address] 01/10/2022 11:53:05 01/14/2022 12:50:34 Hypothyroidism 95637997 E03.8 levothyrox ine 200 mcg daily-incr ease to 225 mcgrecheck tsh-free T4 in 6 weeks [id number] Ana Damon MD [address] [address] 02/11/2022 16:58:31 02/19/2022 16:14:54 Hypothyroidism 94099951 E03.8 Levothyrox ine was increased from 200 mcg qd to 225 mcg qd on 01/13 due to TSH of 12.24. Free T4 was WNL.Due for recheck of TSH and FT4 in a week or two. Adult fail ure to thrive syndrome 401976961 R62.7 Doesn't really have this dx anymore. Her wt. has been stable and her appetite is good.Leonora nue mirtazapin e 7.5 mg qhs.Monito r wts. Mixed anxi ety and depressive disorder 899474260 F41.8 Mood good today.Cont inue wellbutrin XL 150 mg qd and mirtazapin e 7.5 mg qhsMonitor mood.Psych following, may try a GDR. Edema 774410311 R60.0 Continue lasix 40 mg BID and metolazone 2.5 mg 2x/wk on & .Cont inue WILMA wraps qd.Monitor Chronic pancreatitis 235 451086 K86.1 Under good control on fentanyl patch 50 mcg q 3 days, prednisone 10 mg qd, and APAP 650 mg q 6 hrs prnMonitor . Generalize d osteoarthritis 350896005 M15.0 Pain control as above.Also diclofenac gel to shoulders BID and hands prn.Will add lidocaine patches to shoulders, low back and elbows as needed.PT/ OT as needed.Mon itor [id number] MIKIE DUONG [address] [place] [address] 02/25/2022 11:22:33 03/10/2022 20:26:15 Hypothyroidism 36893122 E03.8 levothyrox ine 225 mcgrecheck tsh-free T4 in 6 weeks Spinal roni nosis of lumbar region 74558887 M48.062 fentanyl patch 50 mcg q72 hourspredn isone 10 mg daily [id number] MIKIE DUONG [address] [place] [address] 03/28/2022 11:18:57 04/03/2022 10:05:40 Generalized osteoarthritis 646484660 M15.0 tramadol 25 mg q6hr prndiclofe nac gel to shoulders BID and hands prn.Will add lidocaine patches to shoulders, low back and elbows as needed.PT/ OT as needed.Mon itor Severe pain 51880470 R52 Under good control on fentanyl patch 50 mcg q 3 days,predn isone 10 mg qd,APAP 650 mg q4hr prnPT OT eval and treat prnMonitor [id number] BRYANNA GRIPPIN, [employer] [address] [place] [address] 04/04/2022 10:53:36 04/08/2022 15:25:03 Mixed anxiety and depressive disorder 163993267 F41.8 Mood good today.well butrin XL 150 mg bidmirtaza pine 7.5 mg qhsMonitor mood.Consu lt psych prn Severe pain 16591827 R52 fentanyl patch 50 mcg q 3 days,predn isone 10 mg qd,APAP 1000 mg tidtramado l 25 mg bid prnPT OT eval and treat prnMonitor Edema 822646687 R60.0 lasix 40 mg BIDmetolaz one 2.5 mg 2x/wk on & , thursday.Con tinue wilma wraps daily.Carmela tor Hypokalemia 41603482 E87 .6 With borderline low K+ for awhile. Has never been on K+ supplement .Monitor Atrial fibrillation 4943 6004 I48.0 eliquis 5 mg bidlasix 40 mg bid dailymetol azone 2.5 mg , , Gastroesop hageal reflux disease without esophagitis 263185307 K21.9 omeprazole 40 mg daily Hyperlipidemia 00033885 E78.49 monitor Hypothyroidism 01569291 E03.8 levothyrox ine 225 mcg daily Osteoarthritis 615348754 M15.0 fentanyl 50 mcg patch q72 hrAPAP 1000 mg tidtramado l 25 mg bid prnglucosa mine 500 mg tid Osteoporosis 79525824 M8 1.0 prednisone 10 mg daily Spinal roni nosis of lumbar region 93718768 M48.062 fentanyl patch 50 mcg q72 hourspredn isone 10 mg daily Fall W19.XXXA PT OT eval and treatfall precaution sfrequent safety checks Adult fail ure to thrive syndrome 034914841 R62.7 Doing much better. Wt. has been stable.Say s her appetite is good.gary zapine 7.5 mg qhs.Monito r wts. Generalize d osteoarthritis 965671046 M15.0 tramadol 25 mg bid prndiclofe nac gel to shoulders BID and hands prn.Will add lidocaine patches to shoulders, low back and elbowsgluc osamine 500 mg bidPT/OT as needed.Mon itor [id number] BRYANNAHerman URBANO NP [address] [address] 04/10/2022 12:09:08 04/22/2022 16:17:48 Generalized osteoarthritis 021060299 M15.0 tramadol 25 mg bid prndiclofe nac gel to shoulders BID and hands prn.Will add lidocaine patches to shoulders, low back and elbowsgluc osamine 500 mg bidtizanad ine 2 mg bidPT/OT as needed.Mon itor Severe pain 56311809 R52 fentanyl patch 50 mcg q 3 days,predn isone 10 mg qd,APAP 1000 mg tiddiclofe nac gel and lido patchestiz anidine 2 mg bidtramado l 25 mg bid prnPT OT eval and treat prnMonitor [id number] BRYANNA URBANO NP [address] [address] 05/07/2022 10:29:27 05/09/2022 15:20:45 Pancreatitis 68233588 K85.90 monitor for symptomsmo nitor labs Mixed anxi ety and depressive disorder 802396083 F41.8 Mood good today.well butrin XL 150 mg bidmirtaza pine 7.5 mg qhsMonitor mood.Consu lt psych prn Severe pain 79893043 R52 fentanyl patch 50 mcg q 3 days,predn isone 10 mg qd,APAP 1000 mg tidtramado l 25 mg bid prnPT OT eval and treat prnMonitor Edema 248324849 R60.0 lasix 40 mg BIDmetolaz one 2.5 mg 2x/wk on & , thursday.Con tinue wilma wraps daily.Carmela tor Hypokalemia 84072286 E87 .6 With borderline low K+ for awhile. Has never been on K+ supplement .Monitor Atrial fibrillation 4943 6004 I48.0 eliquis 5 mg bid-on hold due to buttock bruiselasi x 40 mg bid dailymetol azone 2.5 mg , , Gastroesop hageal reflux disease without esophagitis 932158006 K21.9 omeprazole 40 mg daily Hyperlipidemia 29278031 E78.49 monitor Hypothyroidism 93328515 E03.8 levothyrox ine 225 mcg daily Osteoarthritis 727660239 M15.0 fentanyl 50 mcg patch q72 hrAPAP 1000 mg tidtramado l 25 mg bid prnglucosa mine 500 mg tid Osteoporosis 23324238 M8 1.0 prednisone 10 mg daily Spinal roni nosis of lumbar region 75082431 M48.062 fentanyl patch 50 mcg q72 hourspredn isone 10 mg daily Fall W19.XXXA PT OT eval and treatfall precaution sfrequent safety checks Adult fail ure to thrive syndrome 216116674 R62.7 Doing much better. Wt. has been stable.Say s her appetite is good.gary zapine 7.5 mg qhs.Monito r wts. Generalize d osteoarthritis 505953206 M15.0 tramadol 25 mg bid prndiclofe nac gel to shoulders BID and hands prn.Will add lidocaine patches to shoulders, low back and elbowsgluc osamine 500 mg bidPT/OT as needed.Mon itor Contusion 342338778 T14. 8XXA monitor bruising for extension or lesseningh old eliquis [id number] Samina Wilburn MD [address] [address] 05/30/2022 07:35:26 06/04/2022 16:14:23 Chronic pain 40002422 G89.29 diclofenac gel 1% to shoulders bid, to both hands and spine prnfentany l patch 50 mcg q72 hsalonpas patch to right shoulder dailyAPAP 1000 mg tidtramado l 25 mg bidtizanid ine 2 mg bidprednis one 10 mg dailyPT/OT /PM&R prnwill monitor Mixed anxi ety and depressive disorder 958649932 F41.8 bupropion SR 150 mg dailymirta zapine 7.5 mg at hswill monitor Hypothyroidism 96316875 E03.8 levothyrox ine 225 mcg dailywill monitor Atrial fibrillation 4943 6004 I48.0 consider restart ACheld due to hematoma Type 2 russel betes mellitus 69473881 E11.9 insulin aspart per sliding scalewill monitor Edema 754230398 R60.0 furosemide 40 mg dailymetol azone 2.5 mg daily on , , Sawill monitor Gastroesop hageal reflux disease without esophagitis 185374566 K21.9 omeprazole 40 mg bidwill monitor Recurrent pancreatitis 471812019 K86.1 fu GI prnlow fat dietwill monitor [id number] BRYANNA URBANO NP KAREEM HAYNES [address] [place] [address] 07/21/2022 10:43:42 08/01/2022 13:30:09 COVID-19 717496239 U07.1 07/20 covid positiveen courage po food and fluidscons ider ivf for anorexiaco nsider paxlovid or decadron for symptomsse nd to ED for decompensa tion [id number] BRYANNA URBANO NP [address] [address] 07/23/2022 11:28:07 08/01/2022 14:08:08 COVID-19 724080211 U07.1 07/20 covid positiveen courage po food and fluidscons ider ivf for anorexiaco nsider paxlovid or decadron for symptomsse nd to ED for decompensa tion Chronic pain 33810302 G8 9.29 diclofenac gel 1% to shoulders bid, to both hands and spine prnfentany l patch 50 mcg q72 hsalonpas patch to right shoulder dailyAPAP 1000 mg tidtramado l 25 mg bidtizanid ine 2 mg bidprednis one 10 mg dailyPT/OT /PM&R prnwill monitor Mixed anxi ety and depressive disorder 870938868 F41.8 bupropion SR 150 mg dailymirta zapine 7.5 mg at hswill monitor Hypothyroidism 24781022 E03.8 levothyrox ine 225 mcg dailywill monitor Atrial fibrillation 4943 6004 I48.0 eliquis 2.5 mg bidmonitor for any hematomas Type 2 russel betes mellitus 76069602 E11.9 insulin aspart per sliding scalewill monitor Edema 477874541 R60.0 furosemide 40 mg dailymetol azone 2.5 mg daily on T, Th, Sawill monitor Gastroesop hageal reflux disease without esophagitis 913737664 K21.9 omeprazole 40 mg bidwill monitor Recurrent pancreatitis 004248022 K86.1 fu GI prnlow fat dietwill monitor [id number] BRYANNA URBANO NP KAREEM HAYNES [address] [place] [address] 07/25/2022 10:22:57 08/01/2022 15:15:29 COVID-19 341163839 U07.1 07/20 covid positiveen courage po food and fluidscons ider ivf for anorexiaco nsider paxlovid or decadron for symptomsse nd to ED for decompensa tion [id number] BRYANNA URBANO NP KAREEM HAYNES [address] [place] [address] 07/30/2022 11:27:21 08/01/2022 15:57:11 COVID-19 053004801 U07.1 07/20 covid positive-a symptomati c, recovered by dateencour age po food and fluidscons ider ivf for anorexiaco nsider paxlovid or decadron for symptomsse nd to ED for decompensa tion [id number] BRYANNA URBANO NP [address] [address] 07/31/2022 12:15:38 08/05/2022 18:21:58 COVID-19 257032234 U07.1 07/20 covid positive-a symptomati c, recovered by dateencour age po food and fluidscons ider ivf for anorexiaco nsider paxlovid or decadron for symptomsse nd to ED for decompensa tionCXR ordered for 07/31 Pancreatitis 29245084 K8 5.90 monitor for symptomsmo nitor labs [id number] BRYANNA URBANO NP KAREEM [place] [address] [place] [address] 08/01/2022 11:59:17 08/06/2022 08:14:07 COVID-19 928263482 U07.1 07/20 covid positive-a symptomati c, recovered by dateencour age po food and fluidscons ider ivf for anorexiaco nsider paxlovid or decadron for symptomsse nd to ED for decompensa tionCXR ordered for 07/31-negati ve for chf or pna [id number] Margarette Awad NP [facility] [place] [address] [place], [place] [address], [place] [address] 08/09/2022 10:30:12 08/13/2022 13:00:41 COVID-19 320805848 U07.1 resolved- no new treatment in hospital documentof f isolation precaution scovid rapid negative in facility on 08/09/22 per nursingmon itor for sequelae note: 07/20 covid positive-a symptomati c, recovered by dateencour age po food and fluidscons ider ivf for anorexiaco nsider paxlovid or decadron for symptomsse nd to ED for decompensa tionCXR ordered for 07/31-negati ve for chf or pna Pancreatitis 93341203 K8 5.90 was treated with ivf, medication s, and pain adjuncts- now improvedmo nitor for symptomsav oid fatty foods on low fat dietmonito r labs Chronic pain 33845844 G8 9.29 contdiclof enac gel 1% to shoulders bid, to both hands and spine prnfentany l patch 50 mcg q72 hsalonpas patch to right shoulder dailyAPAP 1000 mg tidtramado l 25 mg bidtizanid ine 2 mg bidprednis one 10 mg dailyPT/OT for weakness and painwill monitor Recurrent pancreatitis 242642582 K86.1 fu GI prnlow fat dietwill monitor Dislocatio n of shoulder joint 397771304 S43.004A pt has right shoulder dislocatio ncontinue pain meds as belowsling and swath as toleratedp assive romPT/OTfu with Dr Velasquez outptmonit or for cms, pulses, disclorati on [id number] BRYANNA URBANO, MIKIE HAYNES [address] [facility] [place] [place] [address] 08/11/2022 10:07:53 08/13/2022 13:35:33 Pancreatitis 52702895 K85.90 monitor for symptomsmo nitor labswas treated with ivf, medication s, and pain adjuncts- now improvedmo nitor for symptomsav oid fatty foods on low fat diet Dislocatio n of shoulder joint 542138642 S43.004A pt has chronic right shoulder dislocatio ncontinue pain medssling and swath as toleratedp assive romPT/OTfu with Dr Velasquez outptmonit or for cms, pulses, disclorati on [id number] MIKIE DUONG [address] [facility] [place] [place] [address] 08/25/2022 11:17:28 08/27/2022 14:05:17 Pancreatitis 01710634 K85.90 monitor for symptomsmo nitor labswas treated with ivf, medication s, and pain adjuncts- now improvedmo xifloxin 400 mg daily x4 daysmonito r for symptoms avoid fatty foods on low fat diet Dislocatio n of shoulder joint 525101927 S43.004A pt has chronic subluxatio n right shoulder dislocatio ncontinue pain meds as belowsling and swath as toleratedp assive romPT/OTfu with Dr Velasquez outptmonit or for cms, pulses, disclorati on Chronic pain 58992099 G8 9.29 contdiclof enac gel 1% to shoulders bid, to both hands and spine prnfentany l patch 50 mcg q72 hsalonpas patch to right shoulder dailyAPAP 1000 mg tidtramado l 25 mg bidtizanid ine 2 mg bidprednis one 10 mg dailyPT/OT for weakness and painwill monitor COVID-19 503185254 U07.1 resolved- no new treatment in hospital documentof f isolation precaution scovid rapid negative in facility on 08/09/22 per nursingmon itor for sequelae note: 07/20 covid positive-a symptomati c, recovered by dateencour age po food and fluidscons ider ivf for anorexiaco nsider paxlovid or decadron for symptomsse nd to ED for decompensa tionCXR ordered for 07/31-negati ve for chf or pna Recurrent pancreatitis 621790761 K86.1 f/u GI prnlow fat dietwill monitor [id number] MIKIE DUONG [place] [address] [facility] [place] [place] [address] 09/04/2022 10:39:19 09/08/2022 15:11:55 Dislocation of shoulder joint 532257746 S43.004A pt has chronic subluxatio n right shoulder dislocatio ncontinue pain meds as belowsling and swath as tolerated for comfort prnPT/Edilson/ u with Dr Velasquez outptmonit or for cms, pulses, disclorati on Mixed anxi ety and depressive disorder 858640286 F41.8 bupropion SR 150 mg dailymirta zapine 7.5 mg at hswill monitor [id number] Samina Wilburn MD [address] [place] [address] 10/01/2022 10:06:00 10/03/2022 11:00:52 Atrial fibrillation 15999379 I48.0 apixaban 2.5 mg bidwill monitor Recurrent pancreatitis 313380360 K86.1 fu GIlow fat dietwill monitor Gastroesop hageal reflux disease without esophagitis 533227010 K21.9 omeprazole 40 mg bidwill monitor Type 2 russel betes mellitus 12125002 E11.9 insulin aspart per sliding scalewill monitor Chronic pain 99803756 G8 9.29 diclofenac gel 1% to shoulders bid, to both hands and spine prnfentany l patch 50 mcg q72 hsalonpas patch to right shoulder dailyAPAP 1000 mg tidtramado l 25 mg bidtizanid ine 2 mg bidprednis one 10 mg dailyPT/OT /PM&R prnwill monitor Peripheral edema 7710470 00 R60.0 metolazone 2.5 mg , Th, Sufurosemi de 40 mg bidwill monitor Hypothyroidism 80004534 E03.8 levothyrox ine 225 mcg dailywill monitor Mixed anxi ety and depressive disorder 477964755 F41.8 bupropion SR 150 mg dailymirta zapine 7.5 mg at hstizanidi ne 2 mg bidwill monitor Essential hypertension 34401810 I10 metolazone 2.5 mg daily on , , Safurosemi de 40 mg bidwill monitor [id number] BRYANNA URBANO NP [address] [place] [address] 10/15/2022 14:06:21 10/20/2022 14:25:22 Atrial fibrillation 76879756 I48.0 apixaban 2.5 mg bidwill monitor Recurrent pancreatitis 603693416 K86.1 fu GIlow fat dietwill monitor Gastroesop hageal reflux disease without esophagitis 758621451 K21.9 omeprazole 40 mg bidwill monitor Type 2 russel betes mellitus 94269034 E11.9 insulin aspart per sliding scalewill monitor Chronic pain 34371406 G8 9.29 diclofenac gel 1% to shoulders bid, to both hands and spine prnfentany l patch 50 mcg q72 hsalonpas patch to right shoulder dailyAPAP 1000 mg tidtramado l 25 mg bidtizanid ine 2 mg bidprednis one 10 mg dailyPT/OT /PM&R prnwill monitor Peripheral edema 0588059 00 R60.0 metolazone 2.5 mg , Th, Sufurosemi de 40 mg bidwill monitor Hypothyroidism 39845534 E03.8 levothyrox ine 225 mcg dailywill monitor Mixed anxi ety and depressive disorder 035857048 F41.8 bupropion SR 150 mg dailymirta zapine 7.5 mg at hstizanidi ne 2 mg bidwill monitor Essential hypertension 28500114 I10 metolazone 2.5 mg daily on , , Safurosemi de 40 mg bidwill monitor [id number] BRYANNA URBANO NP [address] [place] [address] 11/28/2022 13:21:24 12/03/2022 17:20:32 Atrial fibrillation 39657168 I48.0 apixaban 2.5 mg bidwill monitor Recurrent pancreatitis 740842683 K86.1 f/u GIlow fat dietwill monitor Gastroesop hageal reflux disease without esophagitis 684249468 K21.9 omeprazole 40 mg bidwill monitor Type 2 russel betes mellitus 22597224 E11.9 insulin aspart per sliding scalewill monitor Chronic pain 09158691 G8 9.29 diclofenac gel 1% to shoulders bid, to both hands and spine prnfentany l patch 50 mcg q72 hsalonpas patch to right shoulder dailyAPAP 1000 mg tidtramado l 25 mg bidtizanid ine 2 mg bidprednis one 10 mg dailyPT/OT /PM&R prnwill monitor Peripheral edema 8370528 00 R60.0 metolazone 2.5 mg , Th, Sufurosemi de 40 mg bidwill monitor Hypothyroidism 58154881 E03.8 levothyrox ine 225 mcg dailywill monitor Mixed anxi ety and depressive disorder 727648355 F41.8 bupropion SR 150 mg dailymirta zapine 7.5 mg at hstizanidi ne 2 mg bidwill monitor Essential hypertension 93265576 I10 metolazone 2.5 mg daily on , , Safurosemi de 40 mg bidwill monitor [id number] BRYANNA URBANO NP [address] [address] 01/14/2023 14:00:23 01/16/2023 15:25:27 Mixed anxiety and depressive disorder 429309947 F41.8 bupropion SR 150 mg dailymirta zapine 7.5 mg at hstizanidi ne 2 mg bidwill monitor Severe pain 93071588 R52 fentanyl patch 50 mcg q 3 days,predn isone 10 mg qd,APAP 1000 mg tidtramado l 25 mg bid prnPT OT eval and treat prnMonitor Fall 6122332 W19.XXXA PT OT eval and treatfall precaution sfrequent safety checks [id number] Samina Wilburn MD [address] [address] 02/11/2023 10:06:26 02/13/2023 16:03:58 Mixed anxiety and depressive disorder 812385426 F41.8 bupropion SR 150 mg dailymirta zapine 7.5 mg at hswill monitor Atrial fibrillation 4943 6004 I48.0 apixaban 2.5 mg bidwill monitor Type 2 russel betes mellitus 49038062 E11.9 insulin aspart per sliding scalewill monitor Chronic pain 06459807 G8 9.29 diclofenac gel 1% to shoulders bid, to both hands and spine prnfentany l patch 50 mcg q72 hsalonpas patch to right shoulder dailyAPAP 1000 mg tidtramado l 25 mg bidtizanid ine 2 mg bidprednis one 10 mg dailyPT/OT /PM&R prnwill monitor Gastroesop hageal reflux disease without esophagitis 422238566 K21.9 omeprazole 40 mg bidwill monitor Hypothyroidism 05927430 E03.8 levothyrox ine 225 mcg dailywill monitor Edema 939052437 R60.0 furosemide 40 mg dailymetol azone 2.5 mg daily on T, , Sawill monitor [id number] MD KAREEM Whitaker [place] [address] [place] [address] [place] [address] 03/20/2023 20:34:03 03/23/2023 14:49:16 Ecchymosis present 442193748 S80.02XA Probably bumped it and doesn't remember, no pain, so no tx needed.Mon itor for resolution and monitor for new ecchymoses . Nausea 810348961 R11.0 Mild, periodic and chronic.Wi ll start Zofran 4 mg q 6 hrs prnMonitor sxs. Chronic neck pain 425850 1658 107 M54.2 Already on multiple pain meds.Will start lidocaine patch to neck prn, pt. says it only hurts sometimes, so doesn't want it scheduled. Continue fentanyl patch 50 mcg q 72 hrs, APAP 1000 mg TID,tramad ol 25 mg BID,tizani dine 2 mg BID andprednis one 10 mg qd.Monitor sxs. [id number] BRYANNA URBANO [facility] [address] [place] [address] [place] [address] 04/03/2023 16:33:21 04/10/2023 09:59:49 Mixed anxiety and depressive disorder 053449037 F41.8 bupropion SR 150 mg dailymirta zapine 7.5 mg at hswill monitor Atrial fibrillation 4943 6004 I48.0 apixaban 2.5 mg bidwill monitor Type 2 russel betes mellitus 41037932 E11.9 insulin aspart per sliding scalewill monitor Chronic pain 08129026 G8 9.29 fentanyl patch 50 mcg q72 hsalonpas patch to right shoulder dailyAPAP 1000 mg tidtramado l 25 mg bidtizanid ine 2 mg bidprednis one 10 mg dailyPT/OT /PM&R prnwill monitor Gastroesop hageal reflux disease without esophagitis 732895352 K21.9 omeprazole 40 mg bidwill monitor Hypothyroidism 55961225 E03.8 levothyrox ine 225 mcg dailywill monitor Edema 756306926 R60.0 furosemide 40 mg dailymetol azone 2.5 mg daily on T, , Sawill monitor [id number] MD KAREEM Whitaker [address] [place] [address] [place] [address] 05/29/2023 18:52:13 06/12/2023 13:46:31 Mixed anxiety and depressive disorder 549442511 F41.8 Mood good tonight.Co ntinue bupropion SR 150 mg qd and mirtazapin e 7.5 mg qhsMonitor mood.Psych follows Atrial fibrillation 4943 6004 I48.0 Rate in good control on no rate controllin g meds.Leonora nue eliquis 2.5 mg BID for AC.Monitor HR and bleeding risk. Type 2 russel betes mellitus 96870918 E11.9 Last HgA1C 7.6 in 03/2022.Sug ars in adequate control on diet control with occ. SSI.Monito r fingerstic ks TID, due for recheck of HgA1C, forgot to order. Chronic pain 53322426 G8 9 Will add diclofenac gel for hands BID.Contin ue fentanyl patch 50 mcg q 72 hrs, salonpas patch to right shoulder qd, APAP 1000 mg TID, tramadol 25 mg BID, tizanidine 2 mg BID, and prednisone 10 mg qd.Continu e rehab as able.Monit or sxs. Gastroesop hageal reflux disease without esophagitis 128021454 K21.9 No current sxs.Contin ue omeprazole 40 mg BID.Monito r sxs Hypothyroidism 00668416 E03.8 TSH WNL.Contin ue levothyrox ine 225 mcg qdMonitor TSH yearly. Edema 390790758 R60.0 At baseline.C ontinue furosemide 40 mg qd and metolazone 2.5 mg qd on T, , SaMonitor sxs. [id number] MIKIE DUONG [address] [facility] [place] [address] 06/29/2023 12:07:31 07/07/2023 18:16:09 Fall W19.XXXA PT OT eval and treatfall precaution sfrequent safety checks Contusion of face 158802 004 S00.83XA monitor neurosmoni tor for any signs of infectionm onitor for resolution of the bruising [id number] BRYANNA MIKIE URBANO [address] [place] [address] 07/01/2023 12:23:08 07/07/2023 19:15:00 Contusion of face 288842142 S00.83XA monitor neurosmoni tor for any signs of infectionm onitor for resolution of the bruising Edema 563405964 R60.0 furosemide 40 mg dailymetol azone 2.5 mg daily on T, Th, Sawill monitor [id number] BRYANNAHerman URBANO NP [address] [place] [address] 07/24/2023 12:53:42 08/04/2023 13:25:11 Contusion of face 878440267 S00.83XA resolvedmo nitor neurosmoni tor for any signs of infectionm onitor for resolution of the bruising Edema 975470204 R60.0 furosemide 40 mg dailymetol azone 2.5 mg daily on T, , Sawill monitor Fall 4802379 W19.XXXA PT OT eval and treatfall precaution sfrequent safety checks Mixed anxi ety and depressive disorder 727488112 F41.8 bupropion SR 150 mg dailymirta zapine 7.5 mg at hswill monitor Atrial fibrillation 4943 6004 I48.0 apixaban 2.5 mg bidwill monitor Type 2 russel betes mellitus 50102124 E11.9 insulin aspart per sliding scalewill monitor Chronic pain 66481726 G8 9.29 fentanyl patch 50 mcg q72 hsalonpas patch to right shoulder dailyAPAP 1000 mg tidtramado l 25 mg bidtizanid ine 2 mg bidprednis one 10 mg dailyPT/OT /PM&R prnwill monitor Gastroesop hageal reflux disease without esophagitis 293829930 K21.9 omeprazole 40 mg bidwill monitor Hypothyroidism 08145419 E03.8 levothyrox ine 225 mcg dailywill monitor [id number] NELDA MANSFIELD [address] [place] [address] 09/03/2023 09:01:19 09/08/2023 15:59:59 Dry skin dermatitis 250029201 L85.3 see hpireports intermitte nt itchiness at timesfluid s encouraged Apply moisturize r to skin BIDhydorco rtisone cream TID prn 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 not appreciate d on examwarm salt water rinses QID prngood oral hygiene encourageb arcos teeth after mealschlor hexidine mouth wash qd and HS Toothache 81782063 K08.8 9 [id number] Samina Wilburn MD [address] [address] 09/23/2023 08:31:39 09/29/2023 10:26:59 Mixed anxiety and depressive disorder 314486738 F41.8 bupropion SR 150 mg dailymirta zapine 7.5 mg at hswill monitor Chronic pain 16571793 G8 9.29 diclofenac gel 1% to shoulders daily in eveningfen tanyl patch 50 mcg q72 hLidocaine patch to right shoulder and neck dailyAPAP 1000 mg tidtramado l 25 mg bidtizanid ine 2 mg bidprednis one 10 mg dailyPT/OT /PM&R prnwill monitor Atrial fibrillation 4943 6004 I48.0 apixaban 2.5 mg bidwill monitor Type 2 russel betes mellitus 30253790 E11.9 insulin aspart per sliding scalewill monitor Hypothyroidism 39617278 E03.8 levothyrox ine 225 mcg dailywill monitor Gastroesop hageal reflux disease without esophagitis 769266939 K21.9 omeprazole 40 mg bidwill monitor Edema 031101030 R60.0 furosemide 40 mg dailymetol azone 2.5 mg daily on , , Sawill monitor Chronic dermatitis 08491 007 L20.89 d/c compressio n stockingst riamcinolo ne cream bidelevate d legswill monitor [id number] NELDA MANSFIELD [address] [address] 09/24/2023 08:15:25 10/01/2023 11:35:02 Fall 7800861 W19.XXXA see hpiPT/OT eval and tx per facility protocolmi nimize fall risknursin g to educate pt on making sure wheelchair is in lock position and front wheels are facing forward before getting up out of chair. Contusion 387898187 T14. 8XXA Patient hit her right almanza against bed frame when she fell forwardnot ed with mild tenderness on eliquismon itor right almanza bruise for healing [id number] NELDA MANSFIELD [address] [address] 10/13/2023 10:07:38 10/15/2023 15:15:36 Neuropathy 912299904 G62.9 bilateral lower extremity calf with tingling pain and tenderness she is not experience any pain relief with current pain medication spatient agrees to try gabapentin times one dose 100mg she will update nursing if she experience relief. Fatigue 05537259 R53.83 appears tirediron studies, tsh, t4, bmp and cbc, vit D and Vit B levels orderedwil l r/o UTI as well. Type 2 russel betes mellitus 41294762 E11.9 currently on lispro SSC will adjust coveragere cently added lantus 10 units10/12 increased lantus to 15 units Hypothyroidism 27621654 E03.8 levothyrox ine 225 mcg dailyord TSH, T4 for 10/13 [id number] NELDA MANSFIELD [address] [address] 10/19/2023 13:21:25 10/22/2023 12:31:39 Vitamin D deficiency 18612113 E55.9 VIt D level 22start cholecacif telly 1000 unit dailyreche ck Vitamin D level in 3-4 months Neuropathy 733816259 G62 .9 today she tells me that she has a postive effect with gabapentin and would like to continue, she has not had any pain.will scheduled gabapentin 100 mg BID Q12 Type 2 russel betes mellitus 58479740 E11.9 currently on lispro SSC will adjust coveragere cently added lantus 10 units10/12 increased lantus to 15 units325: FS have improved Hypothyroidism 35084869 E03.8 levothyrox ine 225 mcg dailyord TSH, T4 for 10/13 Pending Dry skin dermatitis 2600 55920 L85.3 posterior calf noted with red patchy areas that are dry and flakyrefus ed rx cream recommende d, prefer and has been using -goldbond creamuses her own with good effect per patient.[facility] monitor. [id number] NELDA MANSFIELD [facility] [address] [place] [address] 10/30/2023 21:18:42 11/02/2023 15:19:50 Type 2 diabetes mellitus 40817756 E11.9 continue lispro SSCcontinu e lantus 15 unitsmonit or FS TID Hypothyroidism 78770591 E03.8 levothyrox ine decreased to 175 mcgTSH 0.1 T4 normal rangerepea t labs in 6 weeks Abdominal pain 23160559 R10.9 see hpicontinu e zofran prn for nauseaplan robin upcoming EGD. [id number] NELDA MANSFIELD [address] [address] 11/04/2023 10:45:41 11/16/2023 16:04:21 Type 2 diabetes mellitus 54948495 E11.9 continue lispro SSCcontinu e lantus 15 unitsmonit or FS TID Hypothyroidism 11738664 E03.8 levothyrox ine decreased to 175 mcgTSH 0.1 T4 normal rangerepea t labs in 6 weeks Abdominal pain 17470940 R10.9 see hpicontinu e zofran prn for nauseaEGD unremarkab le Urinary tr act infectious disease 21026230 N39.0 10/21: postive UAstart levofloxac in 250 mg for 5 daysstart probiotic 1 tab bid for 10 daysincrea se oral hydration. [id number] NELDA MANSFIELD [address] [address] 11/19/2023 10:42:12 11/27/2023 15:22:30 Type 2 diabetes mellitus 74185382 E11.9 continue lispro SSCcontinu e lantus 15 unitsmonit or FS TID Hypothyroidism 81576830 E03.8 levothyrox ine decreased to 175 mcgTSH 0.1 T4 normal rangerepea t labs in 6 weeks Abdominal pain 18241398 R10.9 see hpicontinu e zofran prn for nauseaEGD unremarkab le Urinary tr act infectious disease 93862330 N39.0 10/21: postive UAstart levofloxac in 250 mg for 5 daysstart probiotic 1 tab bid for 10 daysincrea se oral hydration. 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 bupropion SR 150 mg dailymirta zapine 7.5 mg at hswill monitor Chronic pain 74871677 G8 9.29 diclofenac gel 1% to shoulders daily in eveningfen tanyl patch 50 mcg q72 hLidocaine patch to right shoulder and neck dailyAPAP 1000 mg tidtramado l 25 mg bidtizanid ine 4 mg bidprednis one 10 mg dailyPT/OT /PM&R prnwill monitor Atrial fibrillation 4943 6004 I48.0 continue apixaban 2.5 mg bid Gastroesop hageal reflux disease without esophagitis 154997286 K21.9 omeprazole 40 mg bidcontinu e zofran 4 mg q6 prn Edema 531692796 R60.0 continue furosemide 40 mg dailyconti nue metolazone 2.5 mg daily on , , Eczema 58661691 L30.9 triamcinol one 0.1 % cream BID Dyspnea 749278955 R06.00 continue albuterol inhaler prn for shortness of breath Osteoarthritis 388904144 M15.0 lidocaine patch right shoulder.f entanyl 50 mcg patch q72 hrAPAP 1000 mg tidtramado l 25 mg bid prnglucosa mine 500 mg tid Chronic neck pain 867671 2053 107 M54.2 continue gabapentin 100 mg BID Neuropathy 164827857 G62 .9 continue gabapentin 100 mg BID. 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 [id number] NELDA MANSFIELD [facility] [address] [place] [address] 11/26/2023 18:58:29 12/01/2023 10:07:02 Pain of left heel 9462854909 235288 M79.672 skin prep to bilateral heels BIDoff load heels on pillow when in bedmonitor for worsening sx.Risk factor discussed diabetes ,immobilit y, age [id number] NELDA MANSFIELD [facility] [address] [place] [address] 12/14/2023 08:12:26 12/17/2023 13:25:50 Eczema 42161038 L30.9 bilateral lower extremitie s rash with scattered patches dry and redhx chronic edema, there is potential for weeping/oo zingtria inolone 0.1 % cream BIDmoistur izes legs daily Pain in right heel 61079 26426 109715 M79.671 right heel red and boggywill add skin prep BIDoffload heels when in bedwear socks with shoes Neuropathy 649477448 G62 .9 reports increasing bilateral leg painwill increase gabapentin to 200 mg BID and re assess for inprovemen t. [id number] NELDA MANSFIELD [address] [place] [address] 01/12/2024 12:10:02 01/13/2024 16:55:18 Easy bruising 654404925 R58 reddish mid upper chest bruising, skin intactshe is noted with scattered bruising on shoulder as well.she takes eliquis and prednisone , diuretic dailywill continue to monitor.wi ll check iron studies and VIT D on next lab day. Hypothyroidism 31606143 E03.8 continue levothyrox ine 175 mcgTSH now 1.74contin ue to monitor. [id number] Ana Damon MD [address] [place] [address] 02/01/2024 21:46:09 02/17/2024 11:18:25 Chronic pain 38461509 G89.29 Remains at baseline.C ontinue fentanyl patch 50 mcg q 72 hrs, salonpas patch to right shoulder qd, APAP 1000 mg TID, tramadol 25 mg BID, tizanidine 2 mg BID, and prednisone 10 mg qd.Continu e rehab as able.Monit or sxs. Mixed anxi ety and depressive disorder 707038990 F41.8 Mood good tonight.Co ntinue bupropion SR 150 mg qd and mirtazapin e 7.5 mg qhsMonitor mood.Psych follows Atrial fibrillation 4943 6004 I48.0 Rate remains in good control on no rate controllin g meds.Leonora nue eliquis 2.5 mg BID for AC.Monitor HR and bleeding risk. 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 SSI.Monito r fingerstic ks TID, due for recheck of HgA1C, forgot to order. Gastroesop hageal reflux disease without esophagitis 390050772 K21.9 No current sxs.Contin ue omeprazole 40 mg BID.Monito r sxs Hypothyroidism 61262910 E03.8 TSH WNL.Contin ue levothyrox ine 225 mcg qdMonitor TSH yearly. Edema 259229591 R60.0 Marked tonight.Co ntinue furosemide 40 mg qd and metolazone 2.5 mg qd on , , SaMonitor sxs. Eczema 89991094 L30.9 Much improved.C ontinue triamcinol one 0.1 % cream BID and house moisturize r qdMonitor Neuropathy 535888127 G62 .89 Gabapentin was increased to 200 mg BID on 12/14/23Som e improvemen t since then.Leonora nue other pain meds as above also.Monit or. [id number] ONEYDA BROWN, MIKIE [facility] [address] [place] [address] 02/18/2024 11:02:37 02/20/2024 09:33:35 Edema 533755008 R60.0 Suspecting more may be going on, concern of CHF/fluid overload (L base crackles, increased SOB, cough) Edema worse, L>RIf 01/24 weight correct, has had a 14 lb. weight gain since 01/14. Plan -re-weigh today, increase frequency to 3x wk if weight truly upwrap legs dailyIncre ase lasix to 40 mg bidContinu e metolazone 2.5 mg qd on , , SaGive extra metolazone 2.5 mg x 1 on 02/19Start KCL 30 meq po bid due to low K and increase in lasix, adjust as neededBNP x 1CXR x 1BMP q thursday x 3 to trend K and kidney functionCo nsider fluid restrictio nFurther work up as indicated Chronic pain 83752287 G8 9.29 Remains at baseline.C ontinue fentanyl patch 50 mcg q 72 hrs, salonpas patch to right shoulder qd, APAP 1000 mg TID, tramadol 25 mg BID, tizanidine 2 mg BID, and prednisone 10 mg qd.Continu e rehab as able.Monit or sxs. Mixed anxi ety and depressive disorder 400217739 F41.8 Mood goodContin ue bupropion SR 150 mg qd and mirtazapin e 7.5 mg qhsMonitor mood.Psych follows Atrial fibrillation 4943 6004 I48.0 Rate remains in good control on no rate controllin g meds.Leonora nue eliquis 2.5 mg BID for AC.Monitor HR and bleeding risk. Type 2 russel betes mellitus 54142882 E11.9 Last HgA1C 7.6 in 03/2022.Sug ars in adequate control on diet control with occ. SSI.Monito r fingerstic ks TID, due for recheck of HgA1C, forgot to order. Gastroesop hageal reflux disease without esophagitis 983741674 K21.9 No current sxs.Contin ue omeprazole 40 mg BID.Monito r sxs Hypothyroidism 42668299 E03.8 TSH WNL.Contin ue levothyrox ine 225 mcg qdMonitor TSH yearly. Eczema 44599914 L30.9 Much improved.C ontinue triamcinol one 0.1 % cream BID and house moisturize r qdMonitor Neuropathy 631734497 G62 .89 Gabapentin was increased to 200 mg BID on 12/14/23Som e improvemen t since then.Leonora nue other pain meds as above also.Monit or. Candidiasis of mouth 797 94402 B37.0 Aranda plaque on tongue.Voi ce hoarse, ? if also esophageal Nystatin Swish and swallow 5 ml qid x 30 daysMainta in oral hygeine, brush tongue Dental caries 85387777 K 02.9 Planning for teeth # 29 and 31 extraction s.Will hold clearance for now until fluid balance figured out.Will hold basaglar insulin the night before procedureW ill hold eliquis the day before and the day of procedureD oes not appear abx. proph. is warrantedC ardiac risk currently low for dental extraction s. Hypokalemia 45586657 E87 .6 K 3.1 on labs 7/23/24Pla n as above [id number] BRYAN BERNARDO, SCREENING REPRESENTATIVE [facility] [address] [place] [address] rd [place] [address] 02/23/2024 11:06:51 02/24/2024 15:45:14 Edema 281469764 R60.[address] xray did not show [...] restrictio nFurther work up as indicated Hypokalemia 03194655 E87 .6 02/21:Impro thomas 3.4continu e kcl 30 meq daily. Chronic pain 83548897 G8 9.29 Remains at baseline.C ontinue fentanyl patch 50 mcg q 72 hrs, salonpas patch to right shoulder qd, APAP 1000 mg TID, tramadol 25 mg BID, tizanidine 2 mg BID, and prednisone 10 mg qd.Continu e rehab as able.Monit or sxs. Mixed anxi ety and depressive disorder 066906446 F41.8 Mood goodContin ue bupropion SR 150 mg qd and mirtazapin e 7.5 mg qhsMonitor mood.Psych follows Atrial fibrillation 4943 6004 I48.0 Rate remains in good control on no rate controllin g meds.Leonora nue eliquis 2.5 mg BID for AC.Monitor HR and bleeding risk. Type 2 russel betes mellitus 64937892 E11.9 Last HgA1C 7.6 in 03/2022.Sug ars in adequate control on diet control with occ. SSI.Monito r fingerstic ks TID, due for recheck of HgA1C, forgot to order. Gastroesop hageal reflux disease without esophagitis 823492555 K21.9 No current sxs.Contin ue omeprazole 40 mg BID.Monito r sxs Hypothyroidism 22451641 E03.8 TSH WNL.Contin ue levothyrox ine 225 mcg qdMonitor TSH yearly. Eczema 81592977 L30.9 Much improved.C ontinue triamcinol one 0.1 % cream BID and house moisturize r qdMonitor Neuropathy 957045627 G62 .89 Gabapentin was increased to 200 mg BID on 12/14/23Som e improvemen t since then.Leonora nue other pain meds as above also.Monit or. Pneumonia 756179383 J18. 9 02/17: chest xray showed bilateral [...] rage fluid hydration. Vitamin D deficiency 347 11790 E55.9 12/06:Vit D level 20.4 - this is lower than previous levelwas taking cholecalci ferol 1000 unit daily -will increases to 50,000 unit weekly on thursday.patricia parkinson recheck in 2 months. [id number] BRYAN BERNARDO, NELDA [address] [place] [address] 02/25/2024 10:46:10 02/29/2024 16:18:54 Edema 829916047 R60.[address] xray did not show [...] restrictio nFurther work up as indicated Hypokalemia 09114869 E87 .6 02/21:Impro thomas 3.4continu e kcl 30 meq daily. Chronic pain 45085905 G8 9.29 Remains at baseline.C ontinue fentanyl patch 50 mcg q 72 hrs, salonpas patch to right shoulder qd, APAP 1000 mg TID, tramadol 25 mg BID, tizanidine 2 mg BID, and prednisone 10 mg qd.Continu e rehab as able.Monit or sxs. Mixed anxi ety and depressive disorder 829324034 F41.8 Mood goodContin ue bupropion SR 150 mg qd and mirtazapin e 7.5 mg qhsMonitor mood.Psych follows Atrial fibrillation 4943 6004 I48.0 Rate remains in good control on no rate controllin g meds.Leonora nue eliquis 2.5 mg BID for AC.Monitor HR and bleeding risk. Type 2 russel betes mellitus 87425216 E11.9 Last HgA1C 7.6 in 03/2022.Sug ars in adequate control on diet control with occ. SSI.Monito r fingerstic ks TID, due for recheck of HgA1C, forgot to order. Gastroesop hageal reflux disease without esophagitis 149993045 K21.9 No current sxs.Contin ue omeprazole 40 mg BID.Monito r sxs Hypothyroidism 24523693 E03.8 TSH WNL.Contin ue levothyrox ine 225 mcg qdMonitor TSH yearly. Eczema 15793752 L30.9 Much improved.C ontinue triamcinol one 0.1 % cream BID and house moisturize r qdMonitor Neuropathy 875403587 G62 .89 Gabapentin 200 mg BIDreports bilateral lower extremity pain- noted with swelling >in LLE than RLE-awaiti ng ultrasound to r/o DVT. due to be done today at 3 pmPt willing to try diclofenac gel for lower extremity to see it helps with pain. Pneumonia 956569440 J18. 9 02/17: chest xray showed bilateral [...] rage fluid hydration. Vitamin D deficiency 347 86016 E55.9 12/06:Vit D level 20.4 - this is lower than previous levelwas taking cholecalci ferol 1000 unit daily -will increases to 50,000 unit weekly on thursday.patricia l recheck in 2 months. [id number] NELDA MANSFIELD [address] [place] [address] 02/29/2024 18:11:58 03/01/2024 13:10:29 Pneumonia 312168137 J18.9 breathing is easy and unlabored: chest xray showed bilateral airspace opacities. No pleural effusion.c ontinue augmentin 500 mg TID until 03/04 and azithromyc in 500 mg for 1 day and then continue 250 mg for 4 days .check VS q shiftencou rage fluid hydration. [id number] NELDA MANSFIELD [address] [place] [address] 03/16/2024 10:26:05 03/18/2024 10:30:33 Pneumonia 858971690 J18.9 completed abxbreathi ng is easy and unlabored Mixed anxi ety and depressive disorder 232673175 F41.8 Mood is stable.Con tinue:bupr opion SR 150 mg qdmirtazap ine 7.5 mg qhs-03/14 seen by psych with recommenda tion for GDR for mirtazapin e now ordered at 5 mg hs. patient in agreement. Monitor mood. [id number] NELDA MANSFIELD [address] [place] [address] 03/23/2024 11:08:46 03/31/2024 14:26:29 Edema 549112040 R60.0 Marked tonight.Co ntinue furosemide 40 mg qd and metolazone 2.5 mg qd on T, , SaMonitor sxs. Chronic pain 67385747 G8 9.29 Remains at baseline.C ontinue fentanyl patch 50 mcg q 72 hrs, salonpas patch to right shoulder qd, APAP 1000 mg TID, tramadol 25 mg BID, tizanidine 2 mg BID, and prednisone 10 mg qd.Continu e rehab as able.Monit or sxs. Mixed anxi ety and depressive disorder 803614229 F41.8 Continue bupropion SR 150 mg qd and mirtazapin e 7.5 mg qhsMonitor mood.Psych follows Atrial fibrillation 4943 6004 I48.0 Continue eliquis 2.5 mg BID for AC.Monitor HR and bleeding risk. Type 2 russel betes mellitus 99460201 E11.9 continue lantus 15 units at HSmonitor FS Gastroesop hageal reflux disease without esophagitis 673194162 K21.9 No current sxs.Contin ue omeprazole 40 mg BID.Monito r sxs Hypothyroidism 08078930 E03.8 TSH WNL.Contin ue levothyrox ine 175 mcgMonitor TSH yearly. Eczema 71108444 L30.9 Much improved.C ontinue triamcinol one 0.1 % cream BID and house moisturize r qdMonitor Neuropathy 167311812 G62 .89 Gabapentin 200 mg BIDMonitor . Hypokalemia 26182727 E87 .6 continue kcl 30 meq daily. Vitamin D deficiency 347 15416 E55.9 12/06 Vit D level 20.4 - this is lower than previous levelwas taking cholecalci ferol 1000 unit daily-incr eased to 50,000 unit weekly on thursday.patricia parkinson recheck vit d level on next lab day. [id number] NELDA MANSFIELD [address] [place] [address] 03/29/2024 10:37:33 03/31/2024 14:35:20 Mixed anxiety and depressive disorder 360359013 F41.8 Mood is stable todayConti nue:buprop ion SR 150 mg qdwith trial gdr off mirtazapin e 7.5 mg qhs-decrea sed to 3.75 mgMonitor mood, patient will report unwanted side effects of gdr such as increased anxiety, restlessne ss, insomnia [id number] NELDA MANSFIELD [address] [place] [address] 04/26/2024 14:44:48 05/02/2024 13:49:37 Cellulitis of left lower limb 9239565038 4508703 L03.116 Met sepsis criteria due to 101.5 ? ? ?F, WBC 19.2recent ly started on Keflex for left lower extremity cellulitis on 04/15.CT chest without any focal findings of pneumonia. s/p iv van and zosyndisch arge on take Augmentin till 04/24/24 Extravasat ion of intravenous contrast medium 836080672 T80.818A In acute care found to have left arm swelling tx conservati vely with warm compress and elevation. Atrial fibrillation 4943 6004 I48.0 Continue eliquis 2.5 mg BID for AC.Monitor HR and bleeding risk. Hypothyroidism 71837542 E03.8 TSH WNL.Contin ue levothyrox ine 175 mcgMonitor TSH yearly. Gastroesop hageal reflux disease without esophagitis 537505042 K21.9 No current sxs.Contin ue omeprazole 40 mg BID.Monito r sxs Osteoarthritis 130258917 M15.0 lidocaine patch right shoulder.f entanyl 50 mcg patch q72 hrAPAP 1000 mg tidtramado l 25 mg bid prnglucosa mine 500 mg tid Type 2 russel betes mellitus 16450774 E11.9 continue lantus [address] [facility] [place] [id number] BRYAN BERNARDO, NELDA SERNA [address] [address] 05/02/2024 09:59:17 05/03/2024 11:50:42 Cellulitis of left lower limb 6782597811 2834933 L03.116 05/02: see hpiLLE edema and pain, [...] 04/24/24 Extravasat ion of intravenous contrast medium 533386230 T80.818A In acute care found to have left arm swelling tx conservati vely with warm compress and elevation. Atrial fibrillation 4943 6004 I48.0 Continue eliquis 2.5 mg BID for AC.Monitor HR and bleeding risk.repor table sx reviewed. Hypothyroidism 37696700 E03.8 TSH WNL.Contin ue levothyrox ine 175 mcgMonitor TSH yearly. Gastroesop hageal reflux disease without esophagitis 206187638 K21.9 No current sxs.Contin ue omeprazole 40 mg BID.Monito r sxs Osteoarthritis 343969597 M15.0 fentanyl 50 mcg patch q72 hrAPAP 1000 mg tidtramado l 25 mg bid prnglucosa mine 500 mg tid Type 2 russel betes mellitus 70397791 E11.9 continue lantus 15 units at [facility] [id number] BRYAN BERNARDO [address] [address] 05/05/2024 10:15:43 05/10/2024 15:49:53 Cellulitis of left lower limb 2783346917 9377265 L03.116 05/05: Ultrasound results reviewed, negative for [...] reviewed. Gastroesop hageal reflux disease without esophagitis 167107503 K21.9 stableNo current sxs.Contin ue omeprazole 40 mg BID.Monito r sxs Osteoarthritis 373820906 M15.0 stablefent anyl 50 mcg patch q72 hrAPAP 1000 mg tidtramado l 25 mg bid prn Type 2 russel betes mellitus 86912013 E11.9 continue lantus [address] [facility] FS [id number] NELDA MANSFIELD [address] [address] 05/09/2024 11:51:06 05/10/2024 16:10:25 Cellulitis of left lower limb 8216067973 5247678 L03.116 resolved Atrial fibrillation 4943 6004 I48.0 stable without sx.Continu e eliquis 2.5 mg BID for AC.Monitor HR and bleeding risk.repor table sx reviewed. Gastroesop hageal reflux disease without esophagitis 419642873 K21.9 stableNo current sxs.Contin ue omeprazole 40 mg BID.Monito r sxs Osteoarthritis 575993807 M15.0 stablefent anyl 50 mcg patch q72 hrAPAP 1000 mg tidtramado l 25 mg bid Type 2 russel betes mellitus 96994254 E11.9 [place] mainly under 200sshe is without hypo/hyper glucose sx. Edema 112782151 R60.0 BLE decreased edema note, she is wearing wilma wrapsconti nue torsemide 20 mg daily and metolazone as ord. [id number] NELDA MANSFIELD [facility] e [address] [place] [address] [place] [address] 05/12/2024 11:47:54 05/13/2024 11:46:56 Atrial fibrillation 18137676 I48.0 stable without sx.Continu e eliquis 2.5 mg BID for AC.Monitor HR and bleeding risk.repor table sx reviewed. Gastroesop hageal reflux disease without esophagitis 177302883 K21.9 stableNo current sxs.Contin ue omeprazole 40 mg BID.Monito r sxs Osteoarthritis 899747291 M15.0 stablefent anyl 50 mcg patch q72 hrAPAP 1000 mg tidtramado l 25 mg bid Type 2 russel betes mellitus 73502437 E11.9 continue lantus [address] [facility] FS- mainly under 200sshe is without hypo/hyper glucose sx. Edema 626172627 R60.0 BLE decreased edema note, she is wearing wilma wrapsconti nue torsemide 20 mg daily and metolazone as ord. Spinal roni nosis of lumbar region 18443705 M48.062 fentanyl patch 50 mcgprednis one 10 mg daily - taper to start 05/16/24de creasing by 1 mg per week. [id number] NELDA MANSFIELD [address] [place] [address] 05/16/2024 08:25:38 05/18/2024 09:23:51 Atrial fibrillation 83818106 I48.0 stable without sx.Continu e eliquis 2.5 mg BID for AC.Monitor HR and bleeding risk.repor table sx reviewed. Gastroesop hageal reflux disease without esophagitis 856024166 K21.9 stableNo current sxs.Contin ue omeprazole 40 mg BID.Monito r sxs Osteoarthritis 796541511 M15.0 stablefent anyl 50 mcg patch q72 hrAPAP 1000 mg tidtramado l 25 mg bid Type 2 russel betes mellitus 41400443 E11.9 continue lantus 15 units at HSmonitor FS- mainly under 200sshe is without hypo/hyper glucose sx. Edema 008046374 R60.0 BLE decreased edema note, she is wearing wilma wrapsconti nue torsemide 20 mg daily and metolazone as ord. Spinal roni nosis of lumbar region 40472495 M48.062 fentanyl patch 50 mcgprednis one 10 mg daily - taper to start 05/16/24de creasing by 1 mg per week. Itching of skin 33177726 0 L29.9 left shoulder is without redness or rashencour aged to apply lotion dailywill start claritin 10 mg daily. [id number] NELDA MANSFIELD [place] [address] [place] [address] 05/19/2024 11:11:15 05/23/2024 15:12:03 Atrial fibrillation 28878414 I48.0 stable without sx.Continu e eliquis 2.5 mg BID for AC.Monitor HR and bleeding risk.repor table sx reviewed. Gastroesop hageal reflux disease without esophagitis 396224352 K21.9 stableNo current sxs.Contin ue omeprazole 40 mg BID.Monito r sxs Osteoarthritis 199157880 M15.0 stablefent anyl 50 mcg patch q72 hrAPAP 1000 mg tidtramado l 25 mg bid Type 2 russel betes mellitus 33516227 E11.9 continue lantus 15 units at HSmonitor FS- mainly under 200sshe is without hypo/hyper glucose sx. Edema 740897688 R60.0 BLE decreased edema note, she is wearing wilma wrapsconti nue torsemide 20 mg daily and metolazone as ord. Spinal roni nosis of lumbar region 01483442 M48.062 fentanyl patch 50 mcgprednis one 10 mg daily - taper to start 05/16/24de creasing by 1 mg per week. Itching of skin 29390326 0 L29.9 left shoulder is without redness or rashencour aged to apply lotion dailywill start claritin 10 mg daily. [id number] NELDA MANSFIELD [address] [address] 05/23/2024 07:53:51 05/24/2024 13:52:57 Atrial fibrillation 45394527 I48.0 stable without sx.Continu e eliquis 2.5 mg BID for AC.Monitor HR and bleeding risk.repor table sx reviewed. Gastroesop hageal reflux disease without esophagitis 793075534 K21.9 stableNo current sxs.Contin ue omeprazole 40 mg BID.Monito r sxs Osteoarthritis 798011881 M15.0 stablefent anyl 50 mcg patch q72 hrAPAP 1000 mg tidtramado l 25 mg bid Type 2 russel betes mellitus 72517854 E11.9 continue lantus 15 units at [facility]- mainly under 200sshe is without hypo/hyper glucose sx. Edema 675685489 R60.0 BLE decreased edema note, she is wearing wilma wrapsconti nue torsemide 20 mg daily and metolazone as ord. Spinal roni nosis of lumbar region 49373510 M48.062 fentanyl patch 50 mcgprednis one 10 mg daily - taper to start 05/16/24de creasing by 1 mg per week. Itching of skin 78514845 0 L29.9 left shoulder is without redness or rashencour aged to apply lotion dailywill start claritin 10 mg daily. [id number] NELDA MANSFIELD [address] [address] 05/27/2024 07:54:05 05/30/2024 13:39:41 Atrial fibrillation 41735480 I48.0 stable without sx.Continu e eliquis 2.5 mg BID for AC.Monitor HR and bleeding risk.repor table sx reviewed. Gastroesop hageal reflux disease without esophagitis 135488394 K21.9 stableNo current sxs.Contin ue omeprazole 40 mg BID.Monito r sxs Osteoarthritis 382661010 M15.0 stablefent anyl 50 mcg patch q72 hrAPAP 1000 mg tidtramado l 25 mg bid Type 2 russel betes mellitus 83161131 E11.9 continue lantus [address] [facility] FS- mainly under 200sshe is without hypo/hyper glucose sxwill need updated A1c as we taper off prednisone Edema 909914249 R60.0 improved with compressio n stockings. continue torsemide 20 mg daily and metolazone as ord. Spinal roni nosis of lumbar region 76694074 M48.062 fentanyl patch 50 mcgprednis one 10 mg daily - tapering off 1 mg per weekdecrea sing by 1 mg per week. Itching of skin 23898555 0 L29.9 stableleft shoulder is without redness or rashencour aged to apply lotion dailywill start claritin 10 mg daily. [id number] NELDA MANSFIELD [address] [address] 06/02/2024 09:27:55 06/06/2024 12:53:38 Atrial fibrillation 13208797 I48.0 stable without sx.Continu e eliquis 2.5 mg BID for AC.Monitor HR and bleeding risk.repor table sx reviewed. Gastroesop hageal reflux disease without esophagitis 384344555 K21.9 reports hypogastri c non radiating pain+ nausea no vomitinNo current sxs.Contin ue omeprazole 40 mg BID.Monito r sxs Osteoarthritis 709612887 M15.0 stablefent anyl 50 mcg patch q72 hrAPAP 1000 mg tidtramado l 25 mg bid Type 2 russel betes mellitus 18280166 E11.9 stablecont inue lantus 15 units at [facility]- mainly under 200sshe is without hypo/hyper glucose sx Edema 932608142 R60.0 improved with compressio n stockings. continue torsemide 20 mg daily and metolazone as ord. Blister of lower leg without infection 58697966 S80.822A initially fluid filled with clear liquidnow burst-anais ent recently tx for cellulitis , I prefer wound to be tx with and antispetic nursing ord to cleanse with NS 0r warm soap and water dialy, paint with betadine with non adhesive dressing and kerlix. [id number] NELDA MANSFIELD [address] [address] 06/06/2024 08:41:07 06/07/2024 11:48:57 Atrial fibrillation 90054152 I48.0 stable without sx.Continu e eliquis 2.5 mg BID for AC.Monitor HR and bleeding risk.repor table sx reviewed. Gastroesop hageal reflux disease without esophagitis 825837220 K21.9 No current sxs.Contin ue omeprazole 40 mg BID.Monito r sxs Osteoarthritis 366864819 M15.0 stablefent anyl 50 mcg patch q72 hrAPAP 1000 mg tidtramado l 25 mg bid Type 2 russel betes mellitus 92053857 E11.9 stablecont inue lantus [address] [facility]- mainly under 200sshe is without hypo/hyper glucose sx Edema 613284366 R60.0 continue torsemide 20 mg daily and metolazone as ord. Blister of lower leg without infection 89719928 S80.822A initially fluid filled with clear liquidnow burst-anais ent recently tx for cellulitis , I prefer wound to be tx with and antispetic as well.nursi ng ord to cleanse with NS 0r warm soap and water dialy, paint with betadine cover with xeroform dressing and kerlix. [id number] NELDA MANSFIELD [address] [place] [address] 06/16/2024 11:11:20 06/21/2024 11:07:01 Edema 574685699 R60.0 continue torsemide 20 mg daily and metolazone as ord. Blister of lower leg without infection 18662559 S80.822A initially fluid filled with clear liquidnow burst-anais ent recently tx for cellulitis , I prefer wound to be tx with and antispetic as well.nursi ng ord to cleanse with NS 0r warm soap and water dialy, paint with betadine cover with xeroform dressing and kerlix.sis landers reports wound is stable without sx of infectionf ollowed by wound , last seen yesterday 06/14 with recs to continue current tx ords. Dysuria 56445931 R30.0 send urine for UA with C&Swater encouraged to flush out toxins Fatigue 08953966 R53.83 recheck bmp, cbc, TSH,iron , ammonia and Vit B & D levels on 06/17 [id number] NELDA MANSFIELD [address] [place] [address] 06/27/2024 12:04:26 06/30/2024 11:21:08 Cellulitis of right lower limb [id number] 6066014 L03.115 2/2 diabetes and decreased skin integrity from venous stasis and chronic prednisone usetx with IV ancef in acute carecomple cassie po abx keflex on 06/24follo wed by Wound MD Venous ins ufficiency of leg 357711023 I87.2 chronic BLE edema/RLE acute DVT /right almanza erupted skin blisterdis cussed with nursing, continue eliquis and wound tx with xeroform Acute deep venous thrombosis of femoral vein 5626806225 56090 I82.419 non occlusive/ RLEon eliquis 5 mg BID Chronic heart failure 48 176030 I50.9 acute on chronic/el evated BNP tx with IV lasixCXR showed interstiti al markings but difficult to interpret due to underlying fibrosisco ntinue torsemide and metolazone monitor labs Edema 948617039 R60.0 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 [id number] NELDA MANSFIELD [address] [place] [address] 06/30/2024 08:36:09 07/01/2024 12:09:02 Cellulitis of right lower limb 8360567055 5402623 L03.115 completed abxdenies any pain, per nsg no erythema or warmth Venous ins ufficiency of leg 017696132 I87.2 chronic BLE edema/RLE acute DVT /right almanza erupted skin blisterdis cussed with nursing, continue eliquis and wound tx Acute deep venous thrombosis of femoral vein 9039300990 18953 I82.419 non occlusive/ RLEon eliquis 5 mg BID Chronic heart failure 48 031225 I50.9 acute on chronic/el evated BNP tx with IV lasixCXR showed interstiti al markings but difficult to interpret due to underlying fibrosisco ntinue torsemide and metolazone baseline crackles with hx of pulm. 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 Wound 807541189 T14.90 XA see pi2/2 to erupted blisterfol lowed by wound MD with recent changes to oil emulsion.shelbie kelly provided why tx was changedwil l resume previous tx order of NS and betadine per patient request and have wound re evaldiscus sed with nursing [id number] NELDA MANSFIELD [address] [address] 07/04/2024 10:17:37 07/05/2024 14:29:23 Venous insufficiency of leg 834654785 I87.2 stablechro gavin BLE edema/RLE acute DVT /right almanza erupted skin blisterdis cussed with nursing, continue eliquis and wound tx Acute deep venous thrombosis of femoral vein 0584190646 23292 I82.419 non occlusive/ RLEon eliquis 5 mg BID Chronic heart failure 48 379315 I50.9 acute on chronic/el evated BNP tx with IV lasixCXR showed interstiti al markings but difficult to interpret due to underlying fibrosisco ntinue torsemide and metolazone baseline crackles with hx of pulm. fibrosismo nitor labs Edema 949121457 R60.0 chronic/st abl;e with no increase on exam todayconsi jeff referral to lymphedema clinic - she often c/o pain, she is at increase risk for recurrent infection. Wound 986120223 T14.90 XA see pi2/2 to erupted blisterfol lowed by wound with recent changes to oil emulsion.shelbie kelly provided why tx was changedwil l resume previous tx order of NS and betadine per patient request and have wound re evaldiscus sed with nursing [id number] NELDA MANSFIELD [address] [address] 07/07/2024 08:16:53 07/08/2024 13:27:39 Venous insufficiency of leg 280415718 I87.2 stablechro gavin BLE edema/RLE acute DVT /right almanza erupted skin blisterdis cussed with nursing, continue eliquis and wound txseen by wound with new order changes made in pcc. Acute deep venous thrombosis of femoral vein 0471198425 93590 I82.419 non occlusive/ RLEon eliquis 5 mg BID Chronic heart failure 48 597599 I50.9 continue torsemide and metolazone baseline crackles with hx of pulm. fibrosismo nitor labs Edema 168101634 R60.0 chronic/st ableconsid er referral to lymphedema clinic - she often c/o pain, she is at increase risk for recurrent infection. [id number] NELDA MANSFIELD [address] [address] 07/11/2024 10:40:35 07/12/2024 12:07:39 Venous insufficiency of leg 209940888 I87.2 stablechro gavin BLE edema/RLE acute DVT /right almanza erupted skin blisterdis cussed with nursing, continue eliquis and wound txfollowed by wound /continu e current tx orders. Acute deep venous thrombosis of femoral vein 2190004496 93727 I82.419 non occlusive/ RLEon eliquis 5 mg BID Chronic heart failure 48 638625 I50.9 baseline BLE edema, otherwise no worsening edema notedconti nue torsemide and metolazone baseline crackles with hx of pulm. fibrosismo nitor labs Edema 392667804 R60.0 chronic/st ableconsid er referral to lymphedema clinic - she often c/o pain, she is at increase risk for recurrent infection. 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 Mood is stable todayConti nue:buprop ion [...] Member ID Guarantor Name 07/07/2024 2 [place] [facility] [place] Alcaraz [id number] Dallas Alcaraz 07/07/2024 1 [place] B-[place] [facility] Dallas Alcaraz [id number] Dallas Alcaraz 07/11/2024 2 [place] [facility] Dallas Alcaraz [id number] Dallas Alcaraz 07/11/2024 1 [place] [facility] Dallas Alcaraz [id number] Dallas Alcaraz 07/15/2024 2 [place] [facility] Dallas Alcaraz [id number] Dallas Alcaraz 07/15/2024 1 [place] [facility] Dallas Alcaraz [id number] Dallas Alcaraz 07/18/2024 2 [place] [facility] [place] [facility]car[facility] [id number] Dallas Alcaraz 07/18/2024 1 [place] [facility] Dallas Alcaraz [id number] Dallas Alcaraz 07/21/2024 2 [place] [facility] [place] Alcaraz [id number] Dallas Alcaraz 07/21/2024 1 MEDICARE B-[place]: [facility] Dallas Alcaraz [id number] Dallas Alcaraz Notes Date Note Type Note [...] and history of PE NELDA MANSFIELD [address] [facility], [address], [place], [address], [facility] [employer] 07/07/2024 15:22:09 07/11/2024 text/html Dallas is an [...] and history of PE NELDA MANSFIELD [address] [facility], [address], [place], [address], [employer] 07/11/2024 14:31:09 07/15/2024 text/html This is an 84 yr old women seen for acute rounding visit, she is reporting dysuria for a few days and states sx are similar to past UTI complaints. she denies any frequency or urgency, she has been afebrile. NELDA MANSFIELD [address] [facility], [address], [place], [address], [employer] 07/15/2024 12:35:05 07/18/2024 text/html This is an 84 yr old women seen for acute rounding visit for follow for dysuria. Recent UA negative for infection, pt updated on results, she now reports that she is no longer experiencing sx.she encouraged to increase fluid preferably water. NELDA MANSFIELD [address] [facility], [address], [place], [address], [facility] [employer] 07/18/2024 12:28:32 07/21/2024 text/html This is an 84 yr old women seen for acute rounding visit. She has been at baseline in [facility], today she is doing ok, there are no acute concerns. 07/21/24 Tested negative for covid NELDA MANSFIELD [address] [facility], [address], [place], [address], [employer] 07/21/2024 15:46:48 OBGyn Episode No OBEpisode recorded.
== END 2024-11-23 13:03 | disposition home or self-care (01) ==
LOC: HO.SH 13:02
PROVIDERS: Visit Provider Family Medicine
DX: Z01.118 Encounter for examination of ears and hearing with other abnormal findings (principal); H90.3 Sensorineural hearing loss, bilateral
CPT/HCPCS: 92593; 99499

== ENCOUNTER 2024-12-05 06:15 | Outpatient (REF) | payer MEDICARE, MEDICAID, SELFPAY ==
[2024-12-05 06:09] LABS: MANUAL DIFF FLAG NO
--- OUTSIDE RECORDS SUMMARY | 2024-12-05 06:22 | XMS_ITS | Data Portability ---
Author Organization [place] [facility] Address [address] [place] [address] Care Team Providers Care Clinical Veterinarian Name Role Phone ARIANNA SOW Primary Care Provider [facility] OTHER [phone] Assessment Encounter Date Assessment Date Assessment LastModified [...] I have accessed patient records on the [employer]. This information was pertinent in [...] pofodile Spr [facility], [address], [place], [address], 14:20:55 BMP + ionized calcium, serum or plasma 2020 MEGAN [facility] (Centralized Electronic Ordering - All Locations), Patient Can Go To The Location Of Their Choice, [address] 20:59:40 Referral None recorded. Procedures None recorded. Surgeries None recorded. 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 Reason for portabilit y is immunocomp romised. 2020 Count includes the [facility] ([facility] [address], [place], [address], 19:01:25 XR, chest, 2 view - right upper lobe (anterior) crackles on auscultati on 2020 Count includes the [facility] ([facility] [address], [place], [address], 1 11:03:08 XR, chest, 2 view - REASON FOR PORTABILIT Y: FRAIL/FALL RISK 2019 020 [facility] ([facility]), [address], [place], [address], 0 10:28:17 Medication Orders azithromyc in 250 mg tablet 2019 020 [email or web address] [facility] #18022, [address], [place], [id number], 1 14:39:29 azithromyc in 250 mg tablet 2019 020 [email or web address] [facility] #06202, [address], [place], [id number], 1 14:39:29 ProAir HFA 90 mcg/actuat ion aerosol inhaler 2019 020 INTERFACE [facility] #03975, [address], [place], [id number], 0 15:38:53 Tessalon Perles 100 mg capsule 2019 020 [email or web address] [facility] #53135, [address], [place], [id number], 1 14:43:23 Patient TargetsNo targets recorded. Patient Instructions Encounter Date Encounter Id Patient Instructions Last Modified By Organization Details Last Modified Time 08/17/2019 [id number] Acute Bronchitis Instructions BASIC INFORMATION Acute bronchitis [...] Tylenol can injure your liver. Cough medicine: Yoeq-oob-aipdlul (OTC) medicine helps loosen mucus in your [...] also ask your pharmacist for a good ptld-aqm-fewlrra probiotic to take while you are on [...] to smoke around you. Please call the [employer] Quit Line at to help in smoking [...] condition between 8am-10pm, please call [facility] at [phone] to help navigate your care. [email or web address] Not available 08/17/2019 15:38:34 04/24/2021 [id number] Thank you for yo ur visit with [facility] today. We cannot always find the exact [...] condition between 8am-10pm, please call [facility] at [phone] to help navigate your care. [email or web address] Not available 04/24/2021 15:28:43 Reason for Referral None Reported. Results Created Date Observation Date Name Description Value Unit Range Abnormal Flag Note LastModifiedBy Organization Detail LastModifiedTime 04/24/20 21 04/24/2021 BMP + IONIZ ED CALCI UM, SERUM OR PLASM A glu 155 mg/dL 70-105 Not Available [facility] [address] [place], [address], 04/25/2021 20:59:40 04/24/20 21 04/24/2021 BMP + IONIZ ED CALCI UM, SERUM OR PLASM A BUN 17 mg/dL 8-26 Not Available [facility] [address] [place], [address], 04/25/2021 20:59:40 04/24/20 21 04/24/2021 BMP + IONIZ ED CALCI UM, SERUM OR PLASM A crea 1.0 mg/dL 0.6-1. 3 Not Available [address], [address], 04/25/2021 20:59:40 04/24/20 21 04/24/2021 BMP + IONIZ ED CALCI UM, SERUM OR PLASM A Na 134 mmol/ L 138-14 6 Not Available [address], [address], 04/25/2021 20:59:40 04/24/20 21 04/24/2021 BMP + IONIZ ED CALCI UM, SERUM OR PLASM A K 4.2 mmol/ L 3.5-4. 9 Not Available [address], [address], 04/25/2021 20:59:40 04/24/20 21 04/24/2021 BMP + IONIZ ED CALCI UM, SERUM OR PLASM A cL 96 mmol/ L 98-109 Not Available [address], [address], 04/25/2021 20:59:40 04/24/20 21 04/24/2021 BMP + IONIZ ED CALCI UM, SERUM OR PLASM A TCO2 26 mmol/ L 24-29 Not Available [address], [address], 04/25/2021 20:59:40 04/24/20 21 04/24/2021 BMP + IONIZ ED CALCI UM, SERUM OR PLASM A angap 18 mmol/ L 10-20 Not Available [address], [address], 04/25/2021 20:59:40 04/24/20 21 04/24/2021 BMP + IONIZ ED CALCI UM, SERUM OR PLASM A ica 1.15 mmol/ L 1.12-1 .32 Not Available Den [facility] [address] [place], [address], 04/25/2021 20:59:40 04/24/20 21 04/24/2021 BMP + IONIZ ED CALCI UM, SERUM OR PLASM A HCT 35 %pcv 38-51 Not Available [facility] [address] [place], [address], 04/25/2021 20:59:40 04/24/20 21 04/24/2021 BMP + IONIZ ED CALCI UM, SERUM OR PLASM A Hb 11.9 g/dL 12-17 Not Available Den [facility] [address] [place], [address], 04/25/2021 20:59:40 08/18/19 20 08/18/2019 XR, chest [...] nyuzych [facility] ([employer]) [address], [place], [address], 08/18/2019 15:46:56 04/24/20 wound care* No observ ation record ed. [email or web address] Not Available 2020 14:52:25 04/26/20 XR, chest , 2 view No observ ation record ed. [place] [address] [facility] ([employer] [facility]) [address] [place], [address], 04/28/2021 08:58:02 04/30/20 US, duple x, venou s, lower extre mity No observ ation record ed. [place] [address] [facility] ([employer] [facility]) [address] [place], [address], 05/01/2021 15:37:59 Result Notes None recorded. Procedures Surgical History Date Name Laterality Status Provider Name and Address Organization Details Recorded Time 04/24/20 Venipuncture - DH completed CHANCE PEACOCK NP [address] [place] [address], [address], [place] - [facility] 04/27/2021 08:58:29 Imaging Results Imaging Date Name Status LastModified by [facility] Details LastModified Time 08/18/2019 XR, chest, 2 view [facility] ([employer]) [address] [place], [address], 08/18/2019 15:46:56 04/24/2021 wound care* completed [email or web address] Information n ot available 04/24/2021 14:52:25 04/26/2021 XR, chest, 2 view completed [place] [address] [facility] ([employer]) [address] [place], [address], 04/28/2021 08:58:02 04/30/2021 US, duplex, venous, lower extremity completed [place] [address] [facility] ([employer]) [address] [place], [address], 05/01/2021 15:37:59 Procedure Notes None recorded. Medical Equipment None Reported. Allergies Allergen ID Allergen Name Allergen Category Reaction Reaction Severity Criticality Documentation Date Start Date Code Code System Note Provider Name and Address Organization Details Recorded Time 04355 oxycodone medicatio n Not available Not available Not available 08/17/2019 7804 RxNorm AMY MALDONADOHARPREET SLAUGHTER [address], [place], [address], [place] [facility] 0 15:26:39 06179 morphine medicatio n Not available Not available Not available 08/17/2019 7052 RxNorm AMY MALDONADOHARPREET SLAUGHTER [address], [place], [address], [place] [facility] 0 15:26:46 25743 amitripty line medicatio n Not available Not available Not available 08/17/2019 704 RxNorm AMY MALDONADOHARPREET SLAUGHTER [address], [place], [address], [place] [facility] 0 15:26:57 30098 Phenergan medicatio n Not available Not available Not available 08/17/2019 60584 8 RxNorm AMY MALDONADOHARPREET SLAUGHTER [address], [place], [address], [place] [facility] 0 15:27:24 57765 Demerol medicatio n Not available Not available Not available 08/17/2019 29660 1 RxNorm AMY MALDONADOSUKHJINDER PA [address], [place], [address], [place] [facility] 0 [...] [degF] 132 mm[Hg] 74 mm[Hg] Not Available [facility] 0 15:31:57 Date Recorded Respiratory rate Oxygen saturation Oxygen saturation in Arterial blood by Pulse oximetry Heart rate Body temperature Systolic blood pressure Diastolic blood pressure Provider Name and Address Organization Details Last Updated DateTime 1 22 /min 95 % 95 % 69 /min 98.8 [degF] 118 mm[Hg] 70 mm[Hg] Not Available [facility] 1 14:44:35 Social History Question Answer Notes LastModified by Organizat ion Details LastModified Time Tobacco Smoking Status Former Smoker HARPREET EVANS [address], [place], [address], [place] [facility] [...] Visiting Friends Or Family Or Going To Alevism Or Club Meetings) Choose Not To Answer This Question [email or web address] [employer] Information not available 08/17/2019 We Know From [...] Pulmonary Embolism N Stroke N Hypertension Y Asthma Y COPD N Depression Y Kidney Disease N Gynecological HistoryNo gynecological history recorded. Obstetrics History GPAL:G 0 P 0 0 0 0 Past Encounters Encounter ID Performer Location Encounter Start Date Encounter Closed Date Diagnosis/Indication Diagnosis SNOMED-CT Code Diagnosis ICD10 Code Diagnosis Note [id number] [facility] [address] [facility] [place] [address] 08/17/2019 15:23:04 08/18/2019 17:16:39 Cough 23355872 R05 Bronchopneumonia 2609441 07 J18.0 [id number] CHANCE PEACOCK NP [facility] [address] [facility] [place] [address] 04/24/2021 14:37:31 04/30/2021 14:55:23 Respiratory crackles 93155434 R09.89 Unilateral leg edema 162 366111 R60.0 Chronic hyponatremia 503 [address]0112 E87.1 Deep venou s thrombosis of lower extremity 346387876 I82.409 known DVT right gastrocnem ius vein measured 30 cm on last US in February, Health Concerns Section Related Observation LastModified by Organization Detai ls LastModified Time None Recorded Concern Status LastModified by Organization Details LastModified Time None Recorded Advance Directives Directive N: Payers Insurance Date Sequence Insurance Name Policy Number Policy [place] Covered Member ID [place] Member ID Guarantor Name 08/17/2019 1 [place]IC[place]: [facility] Griselda Alcaraz [id number] Griselda Aguilaronnell 08/17/2019 1 *SELF PAY* Griselda Alcaraz [id number] Griselda Alcaraz 04/30/2021 2 [facility] Griselda Alcaraz [id number] Griselda Alcaraz 04/24/2021 1 MEDICARE B-[place]: [facility] Griselda Alcaraz [id number] Griselda Rodneyell Notes Date Note Type Note Provider Name and Address Organization Details Recorded Time 08/17/2019 text/html Mrs. Alcaraz i s a 79 yo female new to [...] any medications for it. HARPREET EVANS [address] [place], [address], [place] [facility] 08/17/2019 16:06:03 04/24/2021 text/html [...] diarrhea. CHANCE PEACOCK NP [address], [place], [address], [place] [facility] 04/27/2021 08:58:36 OBGyn Episode No OBEpisode recorded.
--- OUTSIDE RECORDS SUMMARY | 2024-12-05 06:22 | XMS_ITS | Data Portability ---
Author Organization [place] - [facility], Main Office Address [address] [facility], [address] [place] [address] Care Team Providers Care Field Service Consultant Name Role Phone KAREEM HAYNES 3RD FLOOR OTHER [phone] Assessment Encounter Date Assessment Date Assessment LastModified [...] Address Organization Details Recorded Time Severe pain [id number] Active 2021 back pain BRYANNA URBANO, MIKIE [address], [address], [place], [address], [facility] 2 13:15:21 Adult failure to thrive syndrome 977372822 Active 2021 BRYANNA URBANO NP [address], [address], [place], [address], [facility] 2 13:15:35 Fall Active 2021 BRYANNA URBANO NP [address], [address], [place], [address], [facility] 2 13:15:44 Gastroes ophageal reflux disease without esophagi tis 625605855 Active 2021 BRYANNA URBANO NP [address], [address], [place], [address], [facility] 2 13:16:01 Osteoart hritis 119904841 Active 2021 BRYANNA URBANO NP [address], [address], [place], [address], [facility] 2 13:16:10 Mixed anxiety and depressi ve disorder 276331372 Active 2021 BRYANNA URBANO NP [address], [address], [place], [address], [facility] 3 10:40:32 Hypothyr oidism 61896899 Active 2021 BRYANNA URBANO NP [address], [address], [place], [address], [facility] 2 13:16:28 Osteopor osis 72499854 Active 2021 BRYANNA URBANO NP [address], [address], [place], [address], [facility] 2 13:17:10 Atrial fibrilla tion 61786360 Active 2021 BRYANNA URBANO, MIKIE [address], [address], [place], [address], [facility] 2 14:21:30 Hyperlip idemia 33267068 Active 2021 BRYANNA URBANO, CERTIFIED LACTATION EDUCATOR [address], [address], [place], [address], [facility] 2 14:21:52 Spinal stenosis of lumbar region 20917152 Active 2021 Ana Dmaon MD [address], [address], [place], [address], [facility] 2 19:13:30 Edema 878795708 Active 2021 BRYANNA URBANO, CERTIFIED LACTATION EDUCATOR [address], [address], [place], [address], [facility] 2 13:22:11 Hypokale doretha 68969474 Active 2021 Ana Damon MD [address], [address], [place], [address], [facility] 2 23:44:02 Pancreat itis 12549736 Active 2021 BRYANNA URBANO, CERTIFIED LACTATION EDUCATOR [address], [address], [place], [address], [facility] 2 14:58:02 Generali zed osteoart hritis 176038545 Active 2021 Ana Damon MD [address], [address], [place], [address], [facility] 2 14:42:49 Contusio n 835272410 Active 2021 right buttock BRYANNA YOLIE, CERTIFIED LACTATION EDUCATOR [address], [address], [place], [address], [facility] 3 12:37:52 COVID-19 375953642 Active 2021 BRYANNA YOLIE, CERTIFIED LACTATION EDUCATOR [address], [address], [place], [address], [facility] 2 10:44:44 Dislocat ion of shoulder joint 029117392 Active 2022 Margarette Awad, MIKIE [address], [address], [place], [address], [facility] 3 11:28:04 Chronic neck pain 29451172030 07 Active 2022 Ana Damon MD [address], [address], [place], [address], [facility] 3 21:36:27 Nausea 753036923 Active 2022 Ana Damon MD [address], [address], [place], [address], [facility] 3 21:36:31 Type 2 diabetes mellitus 60698763 Active 2022 Ana Damon MD [address], [address], [place], [address], [facility] 3 20:16:36 Contusio n of face 252129574 Active 2022 BRYANNA URBANO NP [address], [address], [place], [address], [facility] 3 12:37:45 Urinary tract infectio us disease 45349136 Active 2023 NELDA MANSFIELD [address], [place], [address], [facility] 4 14:59:19 Dyspnea 671385929 Active 2023 NELDA MANSFIELD [address], [place], [address], [facility] 4 22:03:33 Neuropat hy 609611287 Active 2023 NELDA MANSFIELD [address], [address], [place], [address], [facility] 4 22:17:58 Constipa tion 93271459 Active 2023 NELDA MANSFIELD [address], [address], [place], [address], [facility] 4 22:22:39 Chronic pain 93044445 Active 2023 Ana Damon MD [address], [address], [place], [address], [facility] 4 10:49:48 Cellulit is 321470954 Active 2023 NELDA MANSFIELD [address], [address], [place], [address], [facility] 4 09:09:15 Manav contreras 95966835 Completed 202306/06/2024 on predniso ne 10 mg daily NELDA MANSFIELD [address], [address], [place], [address], [facility] 4 15:48:25 Venous insuffic iency of leg 859699606 Active 2023 NELDA MANSFIELD [address] [place] [address], [address], [place], [address], [facility] 4 02:16:11 Chronic heart failure 16535016 Active 2023 NELDA MANSFIELD [address] [place] [address], [address], [place], [address], [facility] 4 02:24:16 Problem Notes None recorded. Medical Equipment None Reported. Allergies Allergen ID Allergen Name Allergen Category Reaction Reaction Severity Criticality Documentation Date Start Date Code Code System Note Provider Name and Address Organization Details Recorded Time 16971 amitripty line medicatio n Not available Not available Not available 09/25/2021 704 RxNorm BRYANNA MIKIE URBANO [address], [address], [place], [address], [facility] 2 13:14:24 39208 morphine medicatio n Not available Not available Not available 09/25/2021 7052 RxNorm BRYANNA MIKIE URBANO [address], [address], [place], [address], [facility] 2 13:14:30 46741 oxycodone medicatio n Not available Not available Not available 09/25/2021 7804 RxNorm BRYANNA MIKIE URBANO [address], [address], [place], [address], [facility] 2 13:14:37 55547 Demerol medicatio n Not available Not available Not available 09/25/2021 92653 1 RxNorm BRYANNA YOLIE, CERTIFIED LACTATION EDUCATOR [address], [address], [place], [address], [facility] 2 13:14:42 82140 Phenergan medicatio n Not available Not available Not available 09/25/2021 87086 8 RxNorm BRYANNA YOLIE, CERTIFIED LACTATION EDUCATOR [address], [address], [place], [address], [facility] 2 13:14:50 89772 lactose food,medi cation Not available Not available Not available 09/25/2021 6211 RxNorm BRYANNA YOLIE, CERTIFIED LACTATION EDUCATOR [address], [address], [place], [address], [facility] 2 13:14:59 Medications Name Sig Start [...] Updated DateTime 07/07/2024 162.56 cm NELDA MANSFIELD [address] [place] [address], [facility] [address], [place], [address], [facility] 07/07/2024 08:58:12 Date Recorded Body height Provider Name an d Address Organization Details Last Updated DateTime 07/11/2024 162.56 cm NELDA MANSFIELD [address], [address], [place], [address], [facility] 07/11/2024 14:23:34 Date Recorded Body height Heart rate Oxygen saturation Oxygen saturation in Arterial blood by Pulse oximetry Provider Name and Address Organization Details Last Updated DateTime 07/21/2024 162.56 cm 78 /min 95 % 95 % NELDA MANSFIELD [address], [address], [place], [address] , [facility] 07/21/2024 15:42:40 Social History Question Answer Notes LastModified by Organizat ion Details LastModified Time Tobacco Smoking Status Former Smoker can't remember when she quit Ana Damon MD [address] [place] [address], [address], [place], [address], [facility] [employer] 09/26/2021 19:09:18 Do You Have An Advance Directive? Yes Information not available 09/26/2021 What Is Your Code Status? DNR/DNI Information not available 09/25/2021 Where Do You Live? [facility]. Was Living With Son, But He Is Not Home During The Day. Information not available 05/29/2023 Legal Guardian? No Informati on not available 09/26/2021 Do You Have A Medical Power Of Operating System Programmer? Yes Invoked Information not available 09/26/2021 What Was The Date Of Your Most Recent Tobacco Screening? 09/26/2021 Information not available 09/26/2021 Do You Have An Out Of Hospital DNR? Yes Information not available 09/26/2021 What Is Your Relationship Status? Information not available 09/26/2021 Has Tobacco Cessation Counseling Been Provided? No N/a As Pt No Longer Smokes Information not available 09/26/2021 Sex: Unknown Functional Status Question Answer Note LastModified by Organizat ion Details LastModified Time Do you use any illicit or recreational drugs? No Information not available 09/25/2021 Do you or have you ever used any other forms of tobacco or nicotine? No Information not available 09/26/2021 What is your level of alcohol consumption? None Information not available 09/25/2021 Mental Status None recorded. Family History Nothing Reported Notes:n/c Medical History No medical history recorded. Gynecological HistoryNo gynecological history recorded. Obstetrics History GPAL:G 0 P 0 0 0 0 Immunizations Vaccine Type Date Status Note Provider Nam e and Address Organization Details Recorded Time Influenza, adjuvanted, quadrivalent, PF 05/21/2022 completed Dena maza, [facility] 08/17/2023 10:49:52 Influenza, adjuvanted, quadrivalent, PF 03/04/2023 completed Dena maza [place] - [facility] 08/17/2023 10:50:06 Past Encounters Encounter ID Performer Location Encounter Start Date Encounter Closed Date Diagnosis/Indication Diagnosis SNOMED-CT Code Diagnosis ICD10 Code Diagnosis Note [id number] BRYANNA URBANO NP [address] [address] 09/25/2021 09:13:56 09/30/2021 13:45:49 Severe pain 23750533 R52 fentanyl patch 50 mcgdilaudi d 1 mg q4hr prnprednis one 10 mg dailyrepos ition prnhospice consult and admission Osteoporosis 82132621 M8 1.0 methotrexa te 2.5 dronate 70 thursdaypred nisone 10 mg daily Osteoarthritis 361838182 M19.90 dilaudid 1 mg q4 hr prnfentany l 50 mcg patch Mixed anxi ety and depressive disorder 793580781 F41.8 wellbutrin xl 150 mg bid Hypothyroidism 37492606 E03.9 levothyrox ine 200 mcg daily Gastroesop hageal reflux disease without esophagitis 031358589 K21.9 omeprazole 40 mg daily Adult fail ure to thrive syndrome 155676320 R62.7 encourage po intake Fall W19.XXXA PT OT eval and treatfall precaution sfrequent safety checks Atrial fibrillation 4943 6004 I48.91 eliquis 5 mg bidlasix 40 mg daily Hyperlipidemia 07723530 E78.5 atorvastat in 40 mg daily [id number] Ana Damon MD [address] [place] [address] 09/26/2021 15:54:36 09/30/2021 14:03:56 Osteoporosis 17362806 M81.0 Will d/c alendronat e Osteoarthritis 208780939 M15.0 Unclear what she is on MTX for, if it's OA or pulmonary fibrosis.C ontinue methotrexa te 2.5 mg weekly.Chelsi n control as above. Mixed anxi ety and depressive disorder 702415064 F41.8 Continue wellbutrin xl 150 mg BID.Monito r mood. Hypothyroidism 33163035 E03.8 With elevated TSH, but nl FT4. Will leave dosing as is for now, bayron. since pt is transition ing to hospice.Co ntinue levothyrox ine 200 mcg qd.No further labs. Gastroesop hageal reflux disease without esophagitis 157165798 K21.9 Continue omeprazole 40 mg qd.Monitor sxs/ Adult fail ure to thrive syndrome 344815028 R62.7 Continue oral supplement s as able. fall W19.XXXA Unable to participat e in rehab.Cont inue fall precaution s.Monitor for safety. Atrial fibrillation 4943 6004 I48.0 Rate in good control on no rate controllin g meds.Leonora nue eliquis 5 mg BID for AC.Monitor HR and bleeding risk Hyperlipidemia 91713513 E78.49 Will d/c atorvastat inNo further labs Spinal roni nosis of lumbar region 30951285 M48.062 With continued distress, unclear how much is pain and how much is behavioral .Will start roxanol 5 mg q 4 hrs scheduled and q 1 hr prn. Hold for oversedati on.Continu e fentanyl patch 50 mcg q 72 hrs and dilaudid 1 mg q 4 hrs prnContinu e prednisone 10 mg qd.Hospice consult pending. [id number] MIKIE DUONG [address] [place] [address] 09/27/2021 10:49:34 09/30/2021 14:31:05 Mixed anxiety and depressive disorder 499730718 F41.8 wellbutrin xl 150 mg bid-pm dose is 50 mg a week decrease until donethen remeron can be startedris perdal 0.5 mg bidAIMs 0 Adult fail ure to thrive syndrome 912073444 R62.7 encourage po intakereme sonal 7.5 mg hs [id number] MIKIE DUONG [address] [place] [address] 09/30/2021 12:53:54 10/04/2021 13:57:38 Mixed anxiety and depressive disorder 453018402 F41.8 wellbutrin xl 150 mg bid-pm dose is 100 mg decrease for 7 days then discontinu ishan remeron can be startedris perdal 0.5 mg bid-decrea sed to 0.25 mg am, 0.5 mg hsAIMs 0 Adult fail ure to thrive syndrome 393120565 R62.7 encourage po intakereme sonal 7.5 mg hs when hs wellbutrin finished Spinal roni nosis of lumbar region 07697640 M48.062 fentanyl patch 50 mcg q72 daysdilaud id 1 mg q4hr prnprednis on 10 mg daily [id number] MD KAREEM Whitaker [address] [place] [address] 10/01/2021 19:18:36 10/04/2021 14:59:14 Spinal stenosis of lumbar region 77117310 M48.062 Continue fentanyl patch 50 mcg q 72 hrs and dilaudid 1 mg q 4 hrs prnContinu e prednisone 10 mg qd.Reconsi jeff hospice consult if pt. not able to tolerate med changes as below. Mixed anxi ety and depressive disorder 221691834 F41.8 Continue Wellbutrin 150 mg qAM and PM dose 100 mg until 10/08 then d/c pm doseStart mirtazapin e 7.5 mg qhs on 10/08Contin ue risperdal 0.25 mg qam and 0.5 mg qhsMonitor effect. Adult fail ure to thrive syndrome 543770245 R62.7 encourage po intakeStar t remeron 7.5 mg hs when hs wellbutrin finished as above. [id number] MIKIE DUONG [address] [place] [address] 10/03/2021 10:04:53 10/09/2021 15:41:28 Adult failure to thrive syndrome 429965122 R62.7 encourage po intakereme sonal 7.5 mg hs when hs wellbutrin finished 10/08 Mixed anxi ety and depressive disorder 248458540 F41.8 wellbutrin xl 150 mg bid-pm dose is 100 mg decrease for 7 days then discontinu e 10/08then remeron can be startedris perdal 0.5 mg bid-decrea sed to 0.25 mg am, 0.5 mg hsAIMs 0 Severe pain 79444829 R52 fentanyl patch 50 mcgdilaudi d 1 mg q4hr prn-d/c due to lack of useprednis one 10 mg dailyrepos ition prnhospice consult and admissionr oxanol was d/c due to morphine allergy [id number] BRYANNA URBANO NP [address] [address] 10/09/2021 10:18:53 10/14/2021 14:25:24 Mixed anxiety and depressive disorder 697575164 F41.8 wellbutrin xl 150 mg bid-pm dose is 100 mg decrease for 7 days then discontinu e 10/08then remeron can be startedris perdal 0.5 mg hs-am dose d/cAIMs 0 Adult fail ure to thrive syndrome 546868572 R62.7 encourage po intakereme sonal 7.5 mg hs when hs wellbutrin finished 10/08 Severe pain 17893675 R52 fentanyl patch 50 mcgdilaudi d 1 mg q4hr prn-d/c due to lack of useprednis one 10 mg dailyrepos ition prnhospice consult and admissionr oxanol was d/c due to morphine allergy [id number] BRYANNA URBANO NP [address] [address] 10/11/2021 10:22:56 10/14/2021 15:05:22 Mixed anxiety and depressive disorder 982495519 F41.8 wellbutrin xl 150 mg bid-pm dose is 100 mg decrease for 7 days then discontinu e 10/08then remeron can be startedris perdal 0.5 mg hs-am dose d/cAIMs 0 Adult fail ure to thrive syndrome 035446225 R62.7 encourage po intakereme sonal 7.5 mg hs when hs wellbutrin finished 10/08 Severe pain 68530176 R52 fentanyl patch 50 mcgdilaudi d 1 mg q4hr prn-d/c due to lack of useprednis one 10 mg dailyrepos ition prnhospice consult and admissionr oxanol was d/c due to morphine allergy [id number] BRYANNA URBANO NP [address] [address] 10/14/2021 12:20:18 10/16/2021 14:26:14 Severe pain 69623603 R52 fentanyl patch 50 mcgprednis one 10 mg dailyrepos ition prnroxanol was d/c due to morphine allergy Mixed anxi ety and depressive disorder 827816618 F41.8 wellbutrin xl 150 mgremeron 7.5 mg dailyrispe rdal 0.5 mg hs-am dose d/cAIMs 0 Fall W19.XXXA PT OT eval and treatfall precaution sfrequent safety checks [id number] BRYANNA URBANO NP [address] [address] 10/16/2021 13:18:48 10/23/2021 10:49:11 Adult failure to thrive syndrome 479634571 R62.7 encourage po intakereme sonal 7.5 mg hs when hs wellbutrin finished 10/08 Mixed anxi ety and depressive disorder 829974717 F41.8 wellbutrin xl 150 mgremeron 7.5 mg dailyrispe rdal 0.5 mg hs-am dose d/cAIMs 0 Severe pain 16063461 R52 fentanyl patch 50 mcgprednis one 10 mg dailyrepos ition prnroxanol was d/c due to morphine allergy Edema 725762533 R60.9 lasix 40 mg daily will increase to bid for 7 days [id number] NELDA Gardiner [address] [address] 10/18/2021 11:22:25 10/23/2021 11:24:28 Adult failure to thrive syndrome 222743636 R62.7 Appetite improveden courage po intakereme sonal 7.5 mg QHSMonitor weights Mixed anxi ety and depressive disorder 673898546 F41.8 wellbutrin xl 150 mgremeron 7.5 mg dailyrispe rdal 0.5 mg hsMonitor moodPsych eval prn Severe pain 96179575 R52 fentanyl patch 50 mcgprednis one 10 mg dailyBack pain now well controlled Monitor Edema 809632707 R60.9 Lasix 40 mg BIDACE wraps BLEElevate legs as toleratedM onitor [id number] BRYANNA URBANO NP [address] [address] 10/21/2021 10:50:08 10/23/2021 11:52:29 Edema 547633753 R60.9 lasix 40 mg bidmetolaz one 2.5 mg tues, thursace wraps Severe pain 87299331 R52 fentanyl patch 50 mcgprednis one 10 mg dailyrepos ition prnroxanol was d/c due to morphine allergy [id number] BRYANNA URBANO NP [address] [address] 10/24/2021 10:43:36 10/29/2021 12:14:04 Edema 324636143 R60.9 lasix 40 mg bidmetolaz one 2.5 mg tues, thurs, add a dose sundayace wraps Adult fail ure to thrive syndrome 746811974 R62.7 encourage po intakereme sonal 7.5 mg hs Mixed anxi ety and depressive disorder 749443094 F41.8 wellbutrin xl 150 mgremeron 7.5 mg dailyrispe rdal 0.5 mg hs- decrease hs dose to 0.25 mgAIMs 0 [id number] BRYANNA URBANO NP [address] [address] 10/30/2021 10:59:13 11/05/2021 10:01:44 Adult failure to thrive syndrome 406192388 R62.7 encourage po intakereme sonal 7.5 mg hs Mixed anxi ety and depressive disorder 560014881 F41.8 wellbutrin xl 150 mgremeron 7.5 mg dailyrispe rdal 0.25 mg- discontinu eAIMs 0 Severe pain 14210630 R52 fentanyl patch 50 mcgprednis one 10 mg dailyrepos ition prnroxanol was d/c due to morphine allergy [id number] Ana Damon MD [address] [address] 11/19/2021 18:25:18 11/25/2021 15:04:26 Adult failure to thrive syndrome 783060715 R62.7 Doing much better. Wt. has been stable.Say s her appetite is good.Leonora nue mirtazapin e 7.5 mg qhs.Monito r wts. Mixed anxi ety and depressive disorder 608037203 F41.8 Mood good today.Cont inue wellbutrin XL 150 mg qd and mirtazapin e 7.5 mg qhsMonitor mood.Consu lt psych prn Severe pain 84276921 R52 Under good control on fentanyl patch 50 mcg q 3 days, prednisone 10 mg qd, and APAP prnRestart ing PT this week.Monit ro Edema 982412877 R60.0 Continue lasix 40 mg BID and metolazone 2.5 mg 2x/wk on & .Cont inue wilma wraps daily.Carmela tor Hypokalemia 04497828 E87 .6 With borderline low K+ for awhile. Has never been on K+ supplement .Will recheck next week and if still low will add KCL 10 meq qd.Monitor [id number] MIKIE DUONG [address] [place] [address] [place] [address] 12/12/2021 10:09:42 12/17/2021 16:08:08 Adult failure to thrive syndrome 092115722 R62.7 Doing much better. Wt. has been stable.Say s her appetite is good.Leonora nue mirtazapin e 7.5 mg qhs.Monito r wts. Mixed anxi ety and depressive disorder 972467140 F41.8 Mood good today.well butrin XL 150 mg qd and mirtazapin e 7.5 mg qhsMonitor mood.Consu lt psych prn Severe pain 17291579 R52 Under good control on fentanyl patch 50 mcg q 3 days, prednisone 10 mg qd, and APAP prnRestart ing PT this week.Monit ro Edema 651523045 R60.0 lasix 40 mg BIDmetolaz one 2.5 mg 2x/wk on & .Cont inue wilma wraps daily.Carmela tor Hypokalemia 50365429 E87 .6 With borderline low K+ for awhile. Has never been on K+ supplement .Will recheck next week and if still low will add KCL 10 meq qd.Monitor Atrial fibrillation 4943 6004 I48.0 eliquis 5 mg bidlasix 40 mg bid daily Gastroesop hageal reflux disease without esophagitis 785288165 K21.9 omeprazole 40 mg daily Hyperlipidemia 39685331 E78.49 atorvastat in 40 mg daily Hypothyroidism 48143989 E03.8 levothyrox ine 200 mcg daily Osteoarthritis 401015998 M15.0 fentanyl 50 mcg patch q72 hr Osteoporosis 04346579 M8 1.0 methotrexa te 2.5 dronate 70 thursdaypred nisone 10 mg daily Spinal roni nosis of lumbar region 23286136 M48.062 fentanyl patch 50 mcg q72 hourspredn isone 10 mg daily Fall W19.XXXA PT OT eval and treatfall precaution sfrequent safety checks [id number] MIKIE DUOGN [address] [place], [place] [address] 01/03/2022 14:55:57 01/06/2022 20:46:48 Pancreatitis 61917165 K85.90 monitor for symptomsmo nitor labs Adult fail ure to thrive syndrome 741577880 R62.7 Doing much better. Wt. has been stable.Say s her appetite is good.gary zapine 7.5 mg qhs.Monito r wts. Mixed anxi ety and depressive disorder 257589780 F41.8 Mood good today.well butrin XL 150 mg bidmirtaza pine 7.5 mg qhsMonitor mood.Consu lt psych prn Severe pain 49640310 R52 Under good control on fentanyl patch 50 mcg q 3 days,predn isone 10 mg qd,APAP 650 mg q4hr prnPT OT eval and treat prnMonitor Edema 815217436 R60.0 lasix 40 mg BIDmetolaz one 2.5 mg 2x/wk on & , thursday.Con tinue wilma wraps daily.Carmela tor Hypokalemia 46576661 E87 .6 With borderline low K+ for awhile. Has never been on K+ supplement .Monitor Atrial fibrillation 4943 6004 I48.0 eliquis 5 mg bidlasix 40 mg bid dailymetol azone 2.5 mg Gastroesop hageal reflux disease without esophagitis 108869600 K21.9 omeprazole 40 mg daily Hyperlipidemia 49909864 E78.49 atorvastat in 40 mg daily Hypothyroidism 32353504 E03.8 levothyrox ine 200 mcg daily Osteoarthritis 108174710 M15.0 fentanyl 50 mcg patch q72 hr Osteoporosis 28408599 M8 1.0 prednisone 10 mg daily Spinal roni nosis of lumbar region 23650482 M48.062 fentanyl patch 50 mcg q72 hourspredn isone 10 mg daily Fall W19.XXXA PT OT eval and treatfall precaution sfrequent safety checks [id number] BRYANNA MIKIE URBANO [address] [address] 01/06/2022 10:28:02 01/09/2022 13:18:55 Edema 512682103 R60.0 lasix 40 mg BIDmetolaz one 2.5 mg 2x/wk on thursday.Con tinue wilma wraps daily.Carmela tor Pancreatitis 82271859 K8 5.90 monitor for symptomsmo nitor labs [id number] BRYANNA URBANO NP [address] [address] 01/08/2022 12:46:02 01/10/2022 16:30:00 Edema 596114550 R60.0 lasix 40 mg BIDmetolaz one 2.5 mg 2x/wk on thursday.Con tinue wilma wraps daily-comp ression stockingsM onitor Pancreatitis 52843554 K8 5.90 monitor for symptomsmo nitor labs [id number] BRYANNA URBANO NP [address] [address] 01/10/2022 11:53:05 01/14/2022 12:50:34 Hypothyroidism 35033269 E03.8 levothyrox ine 200 mcg daily-incr ease to 225 mcgrecheck tsh-free T4 in 6 weeks [id number] Ana Damon MD [address] [address] 02/11/2022 16:58:31 02/19/2022 16:14:54 Hypothyroidism 15944115 E03.8 Levothyrox ine was increased from 200 mcg qd to 225 mcg qd on 01/13 due to TSH of 12.24. Free T4 was WNL.Due for recheck of TSH and FT4 in a week or two. Adult fail ure to thrive syndrome 387440633 R62.7 Doesn't really have this dx anymore. Her wt. has been stable and her appetite is good.Leonora nue mirtazapin e 7.5 mg qhs.Monito r wts. Mixed anxi ety and depressive disorder 490160723 F41.8 Mood good today.Cont inue wellbutrin XL 150 mg qd and mirtazapin e 7.5 mg qhsMonitor mood.Psych following, may try a GDR. Edema 049601287 R60.0 Continue lasix 40 mg BID and metolazone 2.5 mg 2x/wk on & .Cont inue WILMA wraps qd.Monitor Chronic pancreatitis 235 655638 K86.1 Under good control on fentanyl patch 50 mcg q 3 days, prednisone 10 mg qd, and APAP 650 mg q 6 hrs prnMonitor . Generalize d osteoarthritis 432254338 M15.0 Pain control as above.Also diclofenac gel to shoulders BID and hands prn.Will add lidocaine patches to shoulders, low back and elbows as needed.PT/ OT as needed.Mon itor [id number] MIKIE DUONG [address] [place] [address] 02/25/2022 11:22:33 03/10/2022 20:26:15 Hypothyroidism 81096232 E03.8 levothyrox ine 225 mcgrecheck tsh-free T4 in 6 weeks Spinal roni nosis of lumbar region 73407858 M48.062 fentanyl patch 50 mcg q72 hourspredn isone 10 mg daily [id number] MIKIE DUONG [address] [place] [address] 03/28/2022 11:18:57 04/03/2022 10:05:40 Generalized osteoarthritis 768205141 M15.0 tramadol 25 mg q6hr prndiclofe nac gel to shoulders BID and hands prn.Will add lidocaine patches to shoulders, low back and elbows as needed.PT/ OT as needed.Mon itor Severe pain 79569852 R52 Under good control on fentanyl patch 50 mcg q 3 days,predn isone 10 mg qd,APAP 650 mg q4hr prnPT OT eval and treat prnMonitor [id number] MIKIE DUONG [place] [address] [place] [address] 04/04/2022 10:53:36 04/08/2022 15:25:03 Mixed anxiety and depressive disorder 270553421 F41.8 Mood good today.well butrin XL 150 mg bidmirtaza pine 7.5 mg qhsMonitor mood.Consu lt psych prn Severe pain 88656177 R52 fentanyl patch 50 mcg q 3 days,predn isone 10 mg qd,APAP 1000 mg tidtramado l 25 mg bid prnPT OT eval and treat prnMonitor Edema 789579903 R60.0 lasix 40 mg BIDmetolaz one 2.5 mg 2x/wk on & , thursday.Con tinue wilma wraps daily.Carmela tor Hypokalemia 06300588 E87 .6 With borderline low K+ for awhile. Has never been on K+ supplement .Monitor Atrial fibrillation 4943 6004 I48.0 eliquis 5 mg bidlasix 40 mg bid dailymetol azone 2.5 mg , doan Gastroesop hageal reflux disease without esophagitis 004349249 K21.9 omeprazole 40 mg daily Hyperlipidemia 97041452 E78.49 monitor Hypothyroidism 11532511 E03.8 levothyrox ine 225 mcg daily Osteoarthritis 924115779 M15.0 fentanyl 50 mcg patch q72 hrAPAP 1000 mg tidtramado l 25 mg bid prnglucosa mine 500 mg tid Osteoporosis 74531117 M8 1.0 prednisone 10 mg daily Spinal roni nosis of lumbar region 59751497 M48.062 fentanyl patch 50 mcg q72 hourspredn isone 10 mg daily Fall W19.XXXA PT OT eval and treatfall precaution sfrequent safety checks Adult fail ure to thrive syndrome 512027106 R62.7 Doing much better. Wt. has been stable.Say s her appetite is good.gary zapine 7.5 mg qhs.Monito r wts. Generalize d osteoarthritis 608968178 M15.0 tramadol 25 mg bid prndiclofe nac gel to shoulders BID and hands prn.Will add lidocaine patches to shoulders, low back and elbowsgluc osamine 500 mg bidPT/OT as needed.Mon itor [id number] BRYANNAHerman URBANO NP [address] [address] 04/10/2022 12:09:08 04/22/2022 16:17:48 Generalized osteoarthritis 565443616 M15.0 tramadol 25 mg bid prndiclofe nac gel to shoulders BID and hands prn.Will add lidocaine patches to shoulders, low back and elbowsgluc osamine 500 mg bidtizanad ine 2 mg bidPT/OT as needed.Mon itor Severe pain 92648096 R52 fentanyl patch 50 mcg q 3 days,predn isone 10 mg qd,APAP 1000 mg tiddiclofe nac gel and lido patchestiz anidine 2 mg bidtramado l 25 mg bid prnPT OT eval and treat prnMonitor [id number] BRYANNA URBANO NP [address] [address] 05/07/2022 10:29:27 05/09/2022 15:20:45 Pancreatitis 02734700 K85.90 monitor for symptomsmo nitor labs 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 Has never been on K+ supplement .Monitor Atrial fibrillation 4943 6004 I48.0 eliquis 5 mg bid-on hold due to buttock bruiselasi x 40 mg bid dailymetol azone 2.5 mg , , Gastroesop hageal reflux disease without esophagitis 635168269 K21.9 omeprazole 40 mg daily Hyperlipidemia 61550681 E78.49 monitor Hypothyroidism 46807811 E03.8 levothyrox ine 225 mcg daily Osteoarthritis 963252793 M15.0 fentanyl 50 mcg patch q72 hrAPAP 1000 mg tidtramado l 25 mg bid prnglucosa mine 500 mg tid Osteoporosis 20540088 M8 1.0 prednisone 10 mg daily Spinal roni nosis of lumbar region 77983321 M48.062 fentanyl patch 50 mcg q72 hourspredn isone 10 mg daily Fall W19.XXXA PT OT eval and treatfall precaution sfrequent safety checks Adult fail ure to thrive syndrome 207612591 R62.7 Doing much better. Wt. has been stable.Say s her appetite is good.gary zapine 7.5 mg qhs.Monito r wts. Generalize d osteoarthritis 942291604 M15.0 tramadol 25 mg bid prndiclofe nac gel to shoulders BID and hands prn.Will add lidocaine patches to shoulders, low back and elbowsgluc osamine 500 mg bidPT/OT as needed.Mon itor Contusion 307057051 T14. 8XXA monitor bruising for extension or lesseningh old eliquis [id number] Samina Wilburn MD [address] [address] 05/30/2022 07:35:26 06/04/2022 16:14:23 Chronic pain 36278773 G89.29 diclofenac gel 1% to shoulders bid, to both hands and spine prnfentany l patch 50 mcg q72 hsalonpas patch to right shoulder dailyAPAP 1000 mg tidtramado l 25 mg bidtizanid ine 2 mg bidprednis one 10 mg dailyPT/OT /PM&R prnwill monitor Mixed anxi ety and depressive disorder 064296473 F41.8 bupropion SR 150 mg dailymirta zapine 7.5 mg at hswill monitor Hypothyroidism 04483790 E03.8 levothyrox ine 225 mcg dailywill monitor Atrial fibrillation 4943 6004 I48.0 consider restart ACheld due to hematoma Type 2 russel betes mellitus 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 E11.9 insulin aspart per sliding scalewill monitor Edema 780914480 R60.0 furosemide 40 mg dailymetol azone 2.5 mg daily on T, Th, Sawill monitor Gastroesop hageal reflux disease without esophagitis 782976831 K21.9 omeprazole 40 mg bidwill monitor Recurrent pancreatitis 306617145 K86.1 fu GI prnlow fat dietwill monitor [id number] BRYANNA URBANO NP KAREEM HAYNES [address] [place] [address] 07/21/2022 10:43:42 08/01/2022 13:30:09 COVID-19 893651669 U07.1 07/20 covid positiveen courage po food and fluidscons ider ivf for anorexiaco nsider paxlovid or decadron for symptomsse nd to ED for decompensa tion [id number] BRYANNA URBANO NP [address] [address] 07/23/2022 11:28:07 08/01/2022 14:08:08 COVID-19 107156151 U07.1 07/20 covid positiveen courage po food and fluidscons ider ivf for anorexiaco nsider paxlovid or decadron for symptomsse nd to ED for decompensa tion Chronic pain 96584297 G8 9.29 diclofenac gel 1% to shoulders bid, to both hands and spine prnfentany l patch 50 mcg q72 hsalonpas patch to right shoulder dailyAPAP 1000 mg tidtramado l 25 mg bidtizanid ine 2 mg bidprednis one 10 mg dailyPT/OT /PM&R prnwill monitor Mixed anxi ety and depressive disorder 779646339 F41.8 bupropion SR 150 mg dailymirta zapine 7.5 mg at hswill monitor Hypothyroidism 66693127 E03.8 levothyrox ine 225 mcg dailywill monitor Atrial fibrillation 4943 6004 I48.0 eliquis 2.5 mg bidmonitor for any hematomas Type 2 russel betes mellitus 40090091 E11.9 insulin aspart per sliding scalewill monitor Edema 110963823 R60.0 furosemide 40 mg dailymetol azone 2.5 mg daily on T, Th, Sawill monitor Gastroesop hageal reflux disease without esophagitis 206435947 K21.9 omeprazole 40 mg bidwill monitor Recurrent pancreatitis 307852510 K86.1 fu GI prnlow fat dietwill monitor [id number] BRYANNA URBANO NP [address] [address] 07/25/2022 10:22:57 08/01/2022 15:15:29 COVID-19 875374950 U07.1 07/20 covid positiveen courage po food and fluidscons ider ivf for anorexiaco nsider paxlovid or decadron for symptomsse nd to ED for decompensa tion [id number] BRYANNA URBANO NP [address] [address] 07/30/2022 11:27:21 08/01/2022 15:57:11 COVID-19 121503901 U07.1 07/20 covid positive-a symptomati c, recovered by dateencour age po food and fluidscons ider ivf for anorexiaco nsider paxlovid or decadron for symptomsse nd to ED for decompensa tion [id number] BRYANNA URBANO NP [address] [address] 07/31/2022 12:15:38 08/05/2022 18:21:58 COVID-19 932344484 U07.1 07/20 covid positive-a symptomati c, recovered by dateencour age po food and fluidscons ider ivf for anorexiaco nsider paxlovid or decadron for symptomsse nd to ED for decompensa tionCXR ordered for 07/31 Pancreatitis 58685007 K8 5.90 monitor for symptomsmo nitor labs [id number] BRYANNA URBANO NP [address] [address] 08/01/2022 11:59:17 08/06/2022 08:14:07 COVID-19 920519956 U07.1 07/20 covid positive-a symptomati c, recovered by dateencour age po food and fluidscons ider ivf for anorexiaco nsider paxlovid or decadron for symptomsse nd to ED for decompensa tionCXR ordered for 07/31-negati ve for chf or pna [id number] MIKIE Dasilva [address] [facility] [place] [address] 08/09/2022 10:30:12 08/13/2022 13:00:41 COVID-19 958526120 U07.1 resolved- no new treatment in hospital documentof f isolation precaution scovid rapid negative in facility on 08/09/22 per nursingmon itor for sequelae note: 07/20 covid positive-a symptomati c, recovered by dateencour age po food and fluidscons ider ivf for anorexiaco nsider paxlovid or decadron for symptomsse nd to ED for decompensa tionCXR ordered for 07/31-negati ve for chf or pna Pancreatitis 18569368 K8 5.90 was treated with ivf, medication s, and pain adjuncts- now improvedmo nitor for symptomsav oid fatty foods on low fat dietmonito r labs Chronic pain 56916268 G8 9.29 contdiclof enac gel 1% to shoulders bid, to both hands and spine prnfentany l patch 50 mcg q72 hsalonpas patch to right shoulder dailyAPAP 1000 mg tidtramado l 25 mg bidtizanid ine 2 mg bidprednis one 10 mg dailyPT/OT for weakness and painwill monitor Recurrent pancreatitis 737630623 K86.1 fu GI prnlow fat dietwill monitor Dislocatio n of shoulder joint 625869121 S43.004A pt has right shoulder dislocatio ncontinue pain meds as belowsling and swath as toleratedp assive romPT/OTfu with Dr Velasquez outptmonit or for cms, pulses, disclorati on [id number] MIKIE DUONG [address] [facility] [place] [address] 08/11/2022 10:07:53 08/13/2022 13:35:33 Pancreatitis 34583877 K85.90 monitor for symptomsmo nitor labswas treated with ivf, medication s, and pain adjuncts- now improvedmo nitor for symptomsav oid fatty foods on low fat diet Dislocatio n of shoulder joint 295566442 S43.004A pt has chronic right shoulder dislocatio ncontinue pain medssling and swath as toleratedp assive romPT/OTfu with Dr Velasquez outptmonit or for cms, pulses, disclorati on [id number] MIKIE DUONG [place] [address] [place] [address] [place] [address] 08/25/2022 11:17:28 08/27/2022 14:05:17 Pancreatitis 11135933 K85.90 monitor for symptomsmo nitor labswas treated with ivf, medication s, and pain adjuncts- now improvedmo xifloxin 400 mg daily x4 daysmonito r for symptoms avoid fatty foods on low fat diet Dislocatio n of shoulder joint 715046651 S43.004A pt has chronic subluxatio n right shoulder dislocatio ncontinue pain meds as belowsling and swath as toleratedp assive romPT/OTfu with Dr Velasquez outptmonit or for cms, pulses, disclorati on Chronic pain 26826781 G8 9.29 contdiclof enac gel 1% to shoulders bid, to both hands and spine prnfentany l patch 50 mcg q72 hsalonpas patch to right shoulder dailyAPAP 1000 mg tidtramado l 25 mg bidtizanid ine 2 mg bidprednis one 10 mg dailyPT/OT for weakness and painwill monitor COVID-19 309032876 U07.1 resolved- no new treatment in hospital documentof f isolation precaution scovid rapid negative in facility on 08/09/22 per nursingmon itor for sequelae note: 07/20 covid positive-a symptomati c, recovered by dateencour age po food and fluidscons ider ivf for anorexiaco nsider paxlovid or decadron for symptomsse nd to ED for decompensa tionCXR ordered for 07/31-negati ve for chf or pna Recurrent pancreatitis 349689437 K86.1 f/u GI prnlow fat dietwill monitor [id number] BRYANNA URBANO NP KAREEM Denis [facility] [place] [address] 09/04/2022 10:39:19 09/08/2022 15:11:55 Dislocation of shoulder joint 012214892 S43.004A pt has chronic subluxatio n right shoulder dislocatio ncontinue pain meds as belowsling and swath as tolerated for comfort prnPT/Edilson/ u with Dr Velasquez outptmonit or for cms, pulses, disclorati on Mixed anxi ety and depressive disorder 008553545 F41.8 bupropion SR 150 mg dailymirta zapine 7.5 mg at hswill monitor [id number] Samina Wilburn MD [address] [place] [address] 10/01/2022 10:06:00 10/03/2022 11:00:52 Atrial fibrillation 06450541 I48.0 apixaban 2.5 mg bidwill monitor Recurrent pancreatitis 697922554 K86.1 fu GIlow fat dietwill monitor Gastroesop hageal reflux disease without esophagitis 805701982 K21.9 omeprazole 40 mg bidwill monitor Type 2 russel betes mellitus 20212531 E11.9 insulin aspart per sliding scalewill monitor Chronic pain 65963268 G8 9.29 diclofenac gel 1% to shoulders bid, to both hands and spine prnfentany l patch 50 mcg q72 hsalonpas patch to right shoulder dailyAPAP 1000 mg tidtramado l 25 mg bidtizanid ine 2 mg bidprednis one 10 mg dailyPT/OT /PM&R prnwill monitor Peripheral edema 3373423 00 R60.0 metolazone 2.5 mg Tu, Th, Sufurosemi de 40 mg bidwill monitor Hypothyroidism 21678010 E03.8 levothyrox ine 225 mcg dailywill monitor Mixed anxi ety and depressive disorder 935063632 F41.8 bupropion SR 150 mg dailymirta zapine 7.5 mg at hstizanidi ne 2 mg bidwill monitor Essential hypertension 73297692 I10 metolazone 2.5 mg daily on , Th, Safurosemi de 40 mg bidwill monitor [id number] BRYANNA URBANO NP [address] [place] [address] 10/15/2022 14:06:21 10/20/2022 14:25:22 Atrial fibrillation 33895613 I48.0 apixaban 2.5 mg bidwill monitor Recurrent pancreatitis 078120628 K86.1 fu GIlow fat dietwill monitor Gastroesop hageal reflux disease without esophagitis 725230816 K21.9 omeprazole 40 mg bidwill monitor Type 2 russel betes mellitus 72842801 E11.9 insulin aspart per sliding scalewill monitor Chronic pain 05770727 G8 9.29 diclofenac gel 1% to shoulders bid, to both hands and spine prnfentany l patch 50 mcg q72 hsalonpas patch to right shoulder dailyAPAP 1000 mg tidtramado l 25 mg bidtizanid ine 2 mg bidprednis one 10 mg dailyPT/OT /PM&R prnwill monitor Peripheral edema 7744371 00 R60.0 metolazone 2.5 mg , , Sufurosemi de 40 mg bidwill monitor Hypothyroidism 88766744 E03.8 levothyrox ine 225 mcg dailywill monitor Mixed anxi ety and depressive disorder 025031589 F41.8 bupropion SR 150 mg dailymirta zapine 7.5 mg at hstizanidi ne 2 mg bidwill monitor Essential hypertension 10605229 I10 metolazone 2.5 mg daily on , , Safurosemi de 40 mg bidwill monitor [id number] MIKIE DUONG [address] [place] [address] 11/28/2022 13:21:24 12/03/2022 17:20:32 Atrial fibrillation 87606651 I48.0 apixaban 2.5 mg bidwill monitor Recurrent pancreatitis 161515016 K86.1 f/u GIlow fat dietwill monitor Gastroesop hageal reflux disease without esophagitis 379367563 K21.9 omeprazole 40 mg bidwill monitor Type 2 russel betes mellitus 00844379 E11.9 insulin aspart per sliding scalewill monitor Chronic pain 27691477 G8 9.29 diclofenac gel 1% to shoulders bid, to both hands and spine prnfentany l patch 50 mcg q72 hsalonpas patch to right shoulder dailyAPAP 1000 mg tidtramado l 25 mg bidtizanid ine 2 mg bidprednis one 10 mg dailyPT/OT /PM&R prnwill monitor Peripheral edema 5294302 00 R60.0 metolazone 2.5 mg , , Sufurosemi de 40 mg bidwill monitor Hypothyroidism 93729524 E03.8 levothyrox ine 225 mcg dailywill monitor Mixed anxi ety and depressive disorder 207861887 F41.8 bupropion SR 150 mg dailymirta zapine 7.5 mg at hstizanidi ne 2 mg bidwill monitor Essential hypertension 52358900 I10 metolazone 2.5 mg daily on , , Safurosemi de 40 mg bidwill monitor [id number] BRYANNA URBANO NP [address] [address] 01/14/2023 14:00:23 01/16/2023 15:25:27 Mixed anxiety and depressive disorder 924511937 F41.8 bupropion SR 150 mg dailymirta zapine 7.5 mg at hstizanidi ne 2 mg bidwill monitor Severe pain 31979922 R52 fentanyl patch 50 mcg q 3 days,predn isone 10 mg qd,APAP 1000 mg tidtramado l 25 mg bid prnPT OT eval and treat prnMonitor Fall W19.XXXA PT OT eval and treatfall precaution sfrequent safety checks [id number] Samina Wilburn MD [address] [address] 02/11/2023 10:06:26 02/13/2023 16:03:58 Mixed anxiety and depressive disorder 086229065 F41.8 bupropion SR 150 mg dailymirta zapine 7.5 mg at hswill monitor Atrial fibrillation 4943 6004 I48.0 apixaban 2.5 mg bidwill monitor Type 2 russel betes mellitus 02205024 E11.9 insulin aspart per sliding scalewill monitor Chronic pain 91089291 G8 9.29 diclofenac gel 1% to shoulders bid, to both hands and spine prnfentany l patch 50 mcg q72 hsalonpas patch to right shoulder dailyAPAP 1000 mg tidtramado l 25 mg bidtizanid ine 2 mg bidprednis one 10 mg dailyPT/OT /PM&R prnwill monitor Gastroesop hageal reflux disease without esophagitis 050123034 K21.9 omeprazole 40 mg bidwill monitor Hypothyroidism 31565072 E03.8 levothyrox ine 225 mcg dailywill monitor Edema 306694728 R60.0 furosemide 40 mg dailymetol azone 2.5 mg daily on T, , Sawill monitor [id number] Ana Damon MD [address] [place] [address] 03/20/2023 20:34:03 03/23/2023 14:49:16 Ecchymosis present 715241720 S80.02XA Probably bumped it and doesn't remember, no pain, so no tx needed.Mon itor for resolution and monitor for new ecchymoses . Nausea 054789018 R11.0 Mild, periodic and chronic.Wi ll start Zofran 4 mg q 6 hrs prnMonitor sxs. Chronic neck pain 210845 2211 107 M54.2 Already on multiple pain meds.Will start lidocaine patch to neck prn, pt. says it only hurts sometimes, so doesn't want it scheduled. Continue fentanyl patch 50 mcg q 72 hrs, APAP 1000 mg TID,tramad ol 25 mg BID,tizani dine 2 mg BID andprednis one 10 mg qd.Monitor sxs. [id number] BRYANNA URBANO NP [address] [place] [address] 04/03/2023 16:33:21 04/10/2023 09:59:49 Mixed anxiety and depressive disorder 265644722 F41.8 bupropion SR 150 mg dailymirta zapine 7.5 mg at hswill monitor Atrial fibrillation 4943 6004 I48.0 apixaban 2.5 mg bidwill monitor Type 2 russel betes mellitus 96097735 E11.9 insulin aspart per sliding scalewill monitor Chronic pain 38228162 G8 9.29 fentanyl patch 50 mcg q72 hsalonpas patch to right shoulder dailyAPAP 1000 mg tidtramado l 25 mg bidtizanid ine 2 mg bidprednis one 10 mg dailyPT/OT /PM&R prnwill monitor Gastroesop hageal reflux disease without esophagitis 876027536 K21.9 omeprazole 40 mg bidwill monitor Hypothyroidism 28970716 E03.8 levothyrox ine 225 mcg dailywill monitor Edema 625093706 R60.0 furosemide 40 mg dailymetol azone 2.5 mg daily on T, , Sawill monitor [id number] MD KAREEM Whitaker [address] [place] [address] 05/29/2023 18:52:13 06/12/2023 13:46:31 Mixed anxiety and depressive disorder 024161254 F41.8 Mood good tonight.Co ntinue bupropion SR 150 mg qd and mirtazapin e 7.5 mg qhsMonitor mood.Psych follows Atrial fibrillation 4943 6004 I48.0 Rate in good control on no rate controllin g meds.Leonora nue eliquis 2.5 mg BID for AC.Monitor HR and bleeding risk. Type 2 russel betes mellitus 79893703 E11.9 Last HgA1C 7.6 in 03/2022.Sug ars in adequate control on diet control with occ. SSI.Monito r fingerstic ks TID, due for recheck of HgA1C, forgot to order. Chronic pain 28274582 G8 9. Will add diclofenac gel for hands BID.Contin ue fentanyl patch 50 mcg q 72 hrs, salonpas patch to right shoulder qd, APAP 1000 mg TID, tramadol 25 mg BID, tizanidine 2 mg BID, and prednisone 10 mg qd.Continu e rehab as able.Monit or sxs. Gastroesop hageal reflux disease without esophagitis 201825187 K21.9 No current sxs.Contin ue omeprazole 40 mg BID.Monito r sxs Hypothyroidism 26733628 E03.8 TSH WNL.Contin ue levothyrox ine 225 mcg qdMonitor TSH yearly. Edema 265570351 R60.0 At baseline.C ontinue furosemide 40 mg qd and metolazone 2.5 mg qd on T, , SaMonitor sxs. [id number] MIKIE DUONG [address] [place] [address] 06/29/2023 12:07:31 07/07/2023 18:16:09 Fall 0980880 W19.XXXA PT OT eval and treatfall precaution sfrequent safety checks Contusion of face 344229 004 S00.83XA monitor neurosmoni tor for any signs of infectionm onitor for resolution of the bruising [id number] BRYANNA URBANO NP [address] [place] [address] 07/01/2023 12:23:08 07/07/2023 19:15:00 Contusion of face 770341062 S00.83XA monitor neurosmoni tor for any signs of infectionm onitor for resolution of the bruising Edema 306746679 R60.0 furosemide 40 mg dailymetol azone 2.5 mg daily on T, Th, Sawill monitor [id number] BRYANNA URBANO NP [address] [address] 07/24/2023 12:53:42 08/04/2023 13:25:11 Contusion of face 033653663 S00.83XA resolvedmo nitor neurosmoni tor for any signs of infectionm onitor for resolution of the bruising Edema 452373164 R60.0 furosemide 40 mg dailymetol azone 2.5 mg daily on T, Th, Sawill monitor Fall W19.XXXA PT OT eval and treatfall precaution sfrequent safety checks Mixed anxi ety and depressive disorder 310297857 F41.8 bupropion SR 150 mg dailymirta zapine 7.5 mg at hswill monitor Atrial fibrillation 4943 6004 I48.0 apixaban 2.5 mg bidwill monitor Type 2 russle betes mellitus 19995889 E11.9 insulin aspart per sliding scalewill monitor Chronic pain 28534738 G8 9.29 fentanyl patch 50 mcg q72 hsalonpas patch to right shoulder dailyAPAP 1000 mg tidtramado l 25 mg bidtizanid ine 2 mg bidprednis one 10 mg dailyPT/OT /PM&R prnwill monitor Gastroesop hageal reflux disease without esophagitis 309886440 K21.9 omeprazole 40 mg bidwill monitor Hypothyroidism 30893478 E03.8 levothyrox ine 225 mcg dailywill monitor [id number] NELDA MANSFIELD [address] [address] 09/03/2023 09:01:19 09/08/2023 15:59:59 Dry skin dermatitis 209967570 L85.3 see hpireports intermitte nt itchiness at timesfluid s encouraged Apply moisturize r to skin BIDhydorco rtisone cream TID prn 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 not appreciate d on examwarm salt water rinses QID prngood oral hygiene encourageb arcos teeth after mealschlor hexidine mouth wash qd and HS Toothache 42135542 K08.8 9 [id number] Samina Wilburn MD [address] [address] 09/23/2023 08:31:39 09/29/2023 10:26:59 Mixed anxiety and depressive disorder 207664013 F41.8 bupropion SR 150 mg dailymirta zapine 7.5 mg at hswill monitor Chronic pain 61001754 G8 9.29 diclofenac gel 1% to shoulders daily in eveningfen tanyl patch 50 mcg q72 hLidocaine patch to right shoulder and neck dailyAPAP 1000 mg tidtramado l 25 mg bidtizanid ine 2 mg bidprednis one 10 mg dailyPT/OT /PM&R prnwill monitor Atrial fibrillation 4943 6004 I48.0 apixaban 2.5 mg bidwill monitor Type 2 russel betes mellitus 27312228 E11.9 insulin aspart per sliding scalewill monitor Hypothyroidism 11045674 E03.8 levothyrox ine 225 mcg dailywill monitor Gastroesop hageal reflux disease without esophagitis 315311143 K21.9 omeprazole 40 mg bidwill monitor Edema 641758995 R60.0 furosemide 40 mg dailymetol azone 2.5 mg daily on T, , Sawill monitor Chronic dermatitis 96317 007 L20.89 d/c compressio n stockingst riamcinolo ne cream bidelevate d legswill monitor [id number] NELDA MANSFIELD [address] [address] 09/24/2023 08:15:25 10/01/2023 11:35:02 Fall 4434498 W19.XXXA see hpiPT/OT eval and tx per facility protocolmi nimize fall risknursin g to educate pt on making sure wheelchair is in lock position and front wheels are facing forward before getting up out of chair. Contusion 036383977 T14. 8XXA Patient hit her right almanza against bed frame when she fell forwardnot ed with mild tenderness on eliquismon itor right almanza bruise for healing [id number] NELDA MANSFIELD [address] [address] 10/13/2023 10:07:38 10/15/2023 15:15:36 Neuropathy 893456201 G62.9 bilateral lower extremity calf with tingling pain and tenderness she is not experience any pain relief with current pain medication spatient agrees to try gabapentin times one dose 100mg she will update nursing if she experience relief. Fatigue 27560546 R53.83 appears tirediron studies, tsh, t4, bmp and cbc, vit D and Vit B levels orderedwil l r/o UTI as well. Type 2 russel betes mellitus 55428900 E11.9 currently on lispro SSC will adjust coveragere cently added lantus 10 units10/12 increased lantus to 15 units Hypothyroidism 66164241 E03.8 levothyrox ine 225 mcg dailyord TSH, T4 for 10/13 [id number] NELDA MANSFIELD [address] [address] 10/19/2023 13:21:25 10/22/2023 12:31:39 Vitamin D deficiency 82704851 E55.9 VIt D level 22start cholecacif telly 1000 unit dailyreche ck Vitamin D level in 3-4 months Neuropathy 186030399 G62 .9 today she tells me that she has a postive effect with gabapentin and would like to continue, she has not had any pain.will scheduled gabapentin 100 mg BID Q12 Type 2 russel betes mellitus 97835477 E11.9 currently on lispro SSC will adjust coveragere cently added lantus 10 units19 increased lantus to 15 units3/25: FS have improved Hypothyroidism 66469541 E03.8 levothyrox ine 225 mcg dailyord TSH, T4 for 10/13 Pending Dry skin dermatitis 2600 78800 L85.3 posterior calf noted with red patchy areas that are dry and flakyrefus ed rx cream recommende d, prefer and has been using -goldbond creamuses her own with good effect per patient.wi monitor. [id number] NELDA MANSFIELD [address] [address] 10/30/2023 21:18:42 11/02/2023 15:19:50 Type 2 diabetes mellitus 71140854 E11.9 continue lispro SSCcontinu e lantus 15 unitsmonit or FS TID Hypothyroidism 66837741 E03.8 levothyrox ine decreased to 175 mcgTSH 0.1 T4 normal rangerepea t labs in 6 weeks Abdominal pain 03656448 R10.9 see hpicontinu e zofran prn for nauseaplan robin upcoming EGD. [id number] NELDA MANSFIELD [address] [address] 11/04/2023 10:45:41 11/16/2023 16:04:21 Type 2 diabetes mellitus 94374282 E11.9 continue lispro SSCcontinu e lantus 15 unitsmonit or FS TID Hypothyroidism 71057761 E03.8 levothyrox ine decreased to 175 mcgTSH 0.1 T4 normal rangerepea t labs in 6 weeks Abdominal pain 65384041 R10.9 see hpicontinu e zofran prn for nauseaEGD unremarkab le Urinary tr act infectious disease 72763616 N39.0 10/21: postive UAstart levofloxac in 250 mg for 5 daysstart probiotic 1 tab bid for 10 daysincrea se oral hydration. [id number] NELDA MANSFIELD [address] [address] 11/19/2023 10:42:12 11/27/2023 15:22:30 Type 2 diabetes mellitus 10704409 E11.9 continue lispro SSCcontinu e lantus 15 unitsmonit or FS TID Hypothyroidism 75158244 E03.8 levothyrox ine decreased to 175 mcgTSH 0.1 T4 normal rangerepea t labs in 6 weeks Abdominal pain 39904002 R10.9 see hpicontinu e zofran prn for nauseaEGD unremarkab le Urinary tr act infectious disease 72788380 N39.0 10/21: postive UAstart levofloxac in 250 mg for 5 daysstart probiotic 1 tab bid for 10 daysincrea se oral hydration. 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 bupropion SR 150 mg dailymirta zapine 7.5 mg at hswill monitor Chronic pain 28588258 G8 9.29 diclofenac gel 1% to shoulders daily in eveningfen tanyl patch 50 mcg q72 hLidocaine patch to right shoulder and neck dailyAPAP 1000 mg tidtramado l 25 mg bidtizanid ine 4 mg bidprednis one 10 mg dailyPT/OT /PM&R prnwill monitor Atrial fibrillation 4943 6004 I48.0 continue apixaban 2.5 mg bid Gastroesop hageal reflux disease without esophagitis 178721570 K21.9 omeprazole 40 mg bidcontinu e zofran 4 mg q6 prn Edema 473128553 R60.0 continue furosemide 40 mg dailyconti nue metolazone 2.5 mg daily on , , Eczema 07683200 L30.9 triamcinol one 0.1 % cream BID Dyspnea 883963074 R06.00 continue albuterol inhaler prn for shortness of breath Osteoarthritis 688141734 M15.0 lidocaine patch right shoulder.f entanyl 50 mcg patch q72 hrAPAP 1000 mg tidtramado l 25 mg bid prnglucosa mine 500 mg tid Chronic neck pain 869296 7507 107 M54.2 continue gabapentin 100 mg BID Neuropathy 531321753 G62 .9 continue gabapentin 100 mg BID. 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 [id number] NELDA MANSFIELD [address] [place] [address] 11/26/2023 18:58:29 12/01/2023 10:07:02 Pain of left heel 4998231450 761392 M79.672 skin prep to bilateral heels BIDoff load heels on pillow when in bedmonitor for worsening sx.Risk factor discussed diabetes ,immobilit y, age [id number] BRYAN BERNARDO, MEDICAL CLAIMS SPECIALIST [address] [place] [address] 12/14/2023 08:12:26 12/17/2023 13:25:50 Eczema 20325540 L30.9 bilateral lower extremitie s rash with scattered patches dry and redhx chronic edema, there is potential for weeping/oo zingtriamc inolone 0.1 % cream BIDmoistur izes legs daily Pain in right heel 48611 32921 887550 M79.671 right heel red and boggywill add skin prep BIDoffload heels when in bedwear socks with shoes Neuropathy 062634799 G62 .9 reports increasing bilateral leg painwill increase gabapentin to 200 mg BID and re assess for inprovemen t. [id number] NELDA MANSFIELD [address] [place] [address] 01/12/2024 12:10:02 01/13/2024 16:55:18 Easy bruising 813060192 R58 reddish mid upper chest bruising, skin intactshe is noted with scattered bruising on shoulder as well.she takes eliquis and prednisone , diuretic dailywill continue to monitor.wi ll check iron studies and VIT D on next lab day. Hypothyroidism 44258730 E03.8 continue levothyrox ine 175 mcgTSH now 1.74contin ue to monitor. [id number] Ana Damon MD [address] [place] [address] 02/01/2024 21:46:09 02/17/2024 11:18:25 Chronic pain 12704478 G89.29 Remains at baseline.C ontinue fentanyl patch 50 mcg q 72 hrs, salonpas patch to right shoulder qd, APAP 1000 mg TID, tramadol 25 mg BID, tizanidine 2 mg BID, and prednisone 10 mg qd.Continu e rehab as able.Monit or sxs. Mixed anxi ety and depressive disorder 392710334 F41.8 Mood good tonight.Co ntinue bupropion SR 150 mg qd and mirtazapin e 7.5 mg qhsMonitor mood.Psych follows Atrial fibrillation 4945 6004 I48.0 Rate remains in good control on no rate controllin g meds.Leonora nue eliquis 2.5 mg BID for AC.Monitor HR and bleeding risk. Type 2 russel betes mellitus 22676879 E11.9 Last HgA1C 7.6 in 03/2022.Sug ars in adequate control on diet control with occ. SSI.Monito r fingerstic ks TID, due for recheck of HgA1C, forgot to order. Gastroesop hageal reflux disease without esophagitis 189553654 K21.9 No current sxs.Contin ue omeprazole 40 mg BID.Monito r sxs Hypothyroidism 47131760 E03.8 TSH WNL.Contin ue levothyrox ine 225 mcg qdMonitor TSH yearly. Edema 210969639 R60.0 Marked tonight.Co ntinue furosemide 40 mg qd and metolazone 2.5 mg qd on , , SaMonitor sxs. Eczema 47914500 L30.9 Much improved.C ontinue triamcinol one 0.1 % cream BID and house moisturize r qdMonitor Neuropathy 673340409 G62 .89 Gabapentin was increased to 200 mg BID on 12/14/23Som e improvemen t since then.Leonora nue other pain meds as above also.Monit or. [id number] MIKIE SCALES [place] [address] [place] [address] [place] [address] 02/18/2024 11:02:37 02/20/2024 09:33:35 Edema 153688012 R60.0 Suspecting more may be going on, [...] nFurther work up as indicated Chronic pain 47242077 G8 9.29 Remains at baseline.C ontinue fentanyl patch 50 mcg q 72 hrs, salonpas patch to right shoulder qd, APAP 1000 mg TID, tramadol 25 mg BID, tizanidine 2 mg BID, and prednisone 10 mg qd.Continu e rehab as able.Monit or sxs. Mixed anxi ety and depressive disorder 050285771 F41.8 Mood goodContin ue bupropion SR 150 mg qd and mirtazapin e 7.5 mg qhsMonitor mood.Psych follows Atrial fibrillation 4943 6004 I48.0 Rate remains in good control on no rate controllin g meds.Leonora nue eliquis 2.5 mg BID for AC.Monitor HR and bleeding risk. Type 2 russel betes mellitus 62943701 E11.9 Last HgA1C 7.6 in 03/2022.Sug ars in adequate control on diet control with occ. SSI.Monito r fingerstic ks TID, due for recheck of HgA1C, forgot to order. Gastroesop hageal reflux disease without esophagitis 910416600 K21.9 No current sxs.Contin ue omeprazole 40 mg BID.Monito r sxs Hypothyroidism 76601247 E03.8 TSH WNL.Contin ue levothyrox ine 225 mcg qdMonitor TSH yearly. Eczema 10126576 L30.9 Much improved.C ontinue triamcinol one 0.1 % cream BID and house moisturize r qdMonitor Neuropathy 594964833 G62 .89 Gabapentin was increased to 200 mg BID on 12/14/23Som e improvemen t since then.Leonora nue other pain meds as above also.Monit or. Candidiasis of mouth 797 30572 B37.0 Aranda plaque on tongue.Voi ce hoarse, ? if also esophageal Nystatin Swish and swallow 5 ml qid x 30 daysMainta in oral hygeine, brush tongue Dental caries 67028738 K 02.9 Planning for teeth # 29 and 31 extraction s.Will hold clearance for now until fluid balance figured out.Will hold basaglar insulin the night before procedureW ill hold eliquis the day before and the day of procedureD oes not appear abx. proph. is warrantedC ardiac risk currently low for dental extraction s. Hypokalemia 26527636 E87 .6 K 3.1 on labs 02/16/24Pla n as above [id number] BRYAN BERNARDO, NELDA HAYNES [address] [place] [address] rd [place] [address] 02/23/2024 11:06:51 02/24/2024 15:45:14 Edema 492851614 R60.[address] xray did not show [...] restrictio nFurther work up as indicated Hypokalemia 84768572 E87 .6 02/21:Impro thomas 3.4continu e kcl 30 meq daily. Chronic pain 62357055 G8 9.29 Remains at baseline.C ontinue fentanyl patch 50 mcg q 72 hrs, salonpas patch to right shoulder qd, APAP 1000 mg TID, tramadol 25 mg BID, tizanidine 2 mg BID, and prednisone 10 mg qd.Continu e rehab as able.Monit or sxs. Mixed anxi ety and depressive disorder 173457246 F41.8 Mood goodContin ue bupropion SR 150 mg qd and mirtazapin e 7.5 mg qhsMonitor mood.Psych follows Atrial fibrillation 4943 6004 I48.0 Rate remains in good control on no rate controllin g meds.Leonora nue eliquis 2.5 mg BID for AC.Monitor HR and bleeding risk. Type 2 russel betes mellitus 51991160 E11.9 Last HgA1C 7.6 in 03/2022.Sug ars in adequate control on diet control with occ. SSI.Monito r fingerstic ks TID, due for recheck of HgA1C, forgot to order. Gastroesop hageal reflux disease without esophagitis 939943056 K21.9 No current sxs.Contin ue omeprazole 40 mg BID.Monito r sxs Hypothyroidism 83882028 E03.8 TSH WNL.Contin ue levothyrox ine 225 mcg qdMonitor TSH yearly. Eczema 54190804 L30.9 Much improved.C ontinue triamcinol one 0.1 % cream BID and house moisturize r qdMonitor Neuropathy 244310761 G62 .89 Gabapentin was increased to 200 mg BID on 12/14/23Som e improvemen t since then.Leonora nue other pain meds as above also.Monit or. Pneumonia 085741135 J18. 9 02/17: chest xray showed bilateral [...] rage fluid hydration. Vitamin D deficiency 347 00200 E55.9 12/06:Vit D level 20.4 - this is lower than previous levelwas taking cholecalci ferol 1000 unit daily -will increases to 50,000 unit weekly on thursday.patricia parkinson recheck in 2 months. [id number] BRYAN BERNARDO, MEDICAL CLAIMS SPECIALIST [facility] [address] [place] [address] 02/25/2024 10:46:10 02/29/2024 16:18:54 Edema 487696771 R60.[address] xray did not show [...] restrictio nFurther work up as indicated Hypokalemia 45168707 E87 .6 02/21:Impro thomas 3.4continu e kcl 30 meq daily. Chronic pain 10921561 G8 9.29 Remains at baseline.C ontinue fentanyl patch 50 mcg q 72 hrs, salonpas patch to right shoulder qd, APAP 1000 mg TID, tramadol 25 mg BID, tizanidine 2 mg BID, and prednisone 10 mg qd.Continu e rehab as able.Monit or sxs. Mixed anxi ety and depressive disorder 433964189 F41.8 Mood goodContin ue bupropion SR 150 mg qd and mirtazapin e 7.5 mg qhsMonitor mood.Psych follows Atrial fibrillation 4943 6004 I48.0 Rate remains in good control on no rate controllin g meds.Leonora nue eliquis 2.5 mg BID for AC.Monitor HR and bleeding risk. Type 2 russel betes mellitus 90405138 E11.9 Last HgA1C 7.6 in 03/2022.Sug ars in adequate control on diet control with occ. SSI.Monito r fingerstic ks TID, due for recheck of HgA1C, forgot to order. Gastroesop hageal reflux disease without esophagitis 292624014 K21.9 No current sxs.Contin ue omeprazole 40 mg BID.Monito r sxs Hypothyroidism 66608040 E03.8 TSH WNL.Contin ue levothyrox ine 225 mcg qdMonitor TSH yearly. Eczema 75521157 L30.9 Much improved.C ontinue triamcinol one 0.1 % cream BID and house moisturize r qdMonitor Neuropathy 359068626 G62 .89 Gabapentin 200 mg BIDreports bilateral lower extremity pain- noted with swelling >in LLE than RLE-awaiti ng ultrasound to r/o DVT. due to be done today at 3 pmPt willing to try diclofenac gel for lower extremity to see it helps with pain. Pneumonia 372140244 J18. 9 02/17: chest xray showed bilateral [...] rage fluid hydration. Vitamin D deficiency 347 25993 E55.9 12/06:Vit D level 20.4 - this is lower than previous levelwas taking cholecalci ferol 1000 unit daily -will increases to 50,000 unit weekly on thursday.patricia l recheck in 2 months. [id number] NELDA MANSFIELD [address] [place] [address] 02/29/2024 18:11:58 03/01/2024 13:10:29 Pneumonia 614044477 J18.9 breathing is easy and unlabored: chest xray showed bilateral airspace opacities. No pleural effusion.c ontinue augmentin 500 mg TID until 03/04 and azithromyc in 500 mg for 1 day and then continue 250 mg for 4 days .check VS q shiftencou rage fluid hydration. [id number] NELDA MANSFIELD [address] [place] [address] 03/16/2024 10:26:05 03/18/2024 10:30:33 Pneumonia 459734707 J18.9 completed abxbreathi ng is easy and unlabored Mixed anxi ety and depressive disorder 572369272 F41.8 Mood is stable.Con tinue:bupr opion SR 150 mg qdmirtazap ine 7.5 mg qhs-03/14 seen by psych with recommenda tion for GDR for mirtazapin e now ordered at 5 mg hs. patient in agreement. Monitor mood. [id number] NELDA MANSFIELD [address] [place] [address] 03/23/2024 11:08:46 03/31/2024 14:26:29 Edema 723892807 R60.0 Marked tonight.Co ntinue furosemide 40 mg qd and metolazone 2.5 mg qd on T, Th, SaMonitor sxs. Chronic pain 22732393 G8 9.29 Remains at baseline.C ontinue fentanyl patch 50 mcg q 72 hrs, salonpas patch to right shoulder qd, APAP 1000 mg TID, tramadol 25 mg BID, tizanidine 2 mg BID, and prednisone 10 mg qd.Continu e rehab as able.Monit or sxs. Mixed anxi ety and depressive disorder 204737768 F41.8 Continue bupropion SR 150 mg qd and mirtazapin e 7.5 mg qhsMonitor mood.Psych follows Atrial fibrillation 4943 6004 I48.0 Continue eliquis 2.5 mg BID for AC.Monitor HR and bleeding risk. Type 2 russel betes mellitus 30449170 E11.9 continue lantus 15 units at HSmonitor FS Gastroesop hageal reflux disease without esophagitis 759251019 K21.9 No current sxs.Contin ue omeprazole 40 mg BID.Monito r sxs Hypothyroidism 35589319 E03.8 TSH WNL.Contin ue levothyrox ine 175 mcgMonitor TSH yearly. Eczema 39792716 L30.9 Much improved.C ontinue triamcinol one 0.1 % cream BID and house moisturize r qdMonitor Neuropathy 142016272 G62 .89 Gabapentin 200 mg BIDMonitor . Hypokalemia 67228346 E87 .6 continue kcl 30 meq daily. Vitamin D deficiency 347 27509 E55.9 12/06 Vit D level 20.4 - this is lower than previous levelwas taking cholecalci ferol 1000 unit daily-incr eased to 50,000 unit weekly on thursday.patricia parkinson recheck vit d level on next lab day. [id number] NELDA MANSFIELD [address] [place] [address] 03/29/2024 10:37:33 03/31/2024 14:35:20 Mixed anxiety and depressive disorder 060820152 F41.8 Mood is stable todayConti nue:buprop ion SR 150 mg qdwith trial gdr off mirtazapin e 7.5 mg qhs-decrea sed to 3.75 mgMonitor mood, patient will report unwanted side effects of gdr such as increased anxiety, restlessne ss, insomnia [id number] NELDA MANSFIELD [facility] [address] [place] [address] 04/26/2024 14:44:48 05/02/2024 13:49:37 Cellulitis of left lower limb 2288178918 1814165 L03.116 Met sepsis criteria due to 101.5 ? ? ?F, WBC 19.2recent ly started on Keflex for left lower extremity cellulitis on 04/15.CT chest without any focal findings of pneumonia. s/p iv van and zosyndisch arge on take Augmentin till 04/24/24 Extravasat ion of intravenous contrast medium 413736637 T80.818A In acute care found to have left arm swelling tx conservati vely with warm compress and elevation. Atrial fibrillation 4943 6004 I48.0 Continue eliquis 2.5 mg BID for AC.Monitor HR and bleeding risk. Hypothyroidism 93121730 E03.8 TSH WNL.Contin ue levothyrox ine 175 mcgMonitor TSH yearly. Gastroesop hageal reflux disease without esophagitis 366656030 K21.9 No current sxs.Contin ue omeprazole 40 mg BID.Monito r sxs Osteoarthritis 358782647 M15.0 lidocaine patch right shoulder.f entanyl 50 mcg patch q72 hrAPAP 1000 mg tidtramado l 25 mg bid prnglucosa mine 500 mg tid Type 2 russel betes mellitus 70122749 E11.9 continue lantus 15 units at [facility] FS [id number] NELDA MANSFIELD [address] [address] 05/02/2024 09:59:17 05/03/2024 11:50:42 Cellulitis of left lower limb 0829079513 7944264 L03.116 05/02: see hpiLLE edema and pain, [...] 04/24/24 Extravasat ion of intravenous contrast medium 160701506 T80.818A In acute care found to have left arm swelling tx conservati vely with warm compress and elevation. Atrial fibrillation 4943 6004 I48.0 Continue eliquis 2.5 mg BID for AC.Monitor HR and bleeding risk.repor table sx reviewed. Hypothyroidism 17413126 E03.8 TSH WNL.Contin ue levothyrox ine 175 mcgMonitor TSH yearly. Gastroesop hageal reflux disease without esophagitis 043111505 K21.9 No current sxs.Contin ue omeprazole 40 mg BID.Monito r sxs Osteoarthritis 012530833 M15.0 fentanyl 50 mcg patch q72 hrAPAP 1000 mg tidtramado l 25 mg bid prnglucosa mine 500 mg tid Type 2 russel betes mellitus 45790027 E11.9 continue lantus 15 units at [facility] [id number] NELDA MANSFIELD [address] [address] 05/05/2024 10:15:43 05/10/2024 15:49:53 Cellulitis of left lower limb 5191470336 3245662 L03.116 05/05: Ultrasound results reviewed, negative for [...] reviewed. Gastroesop hageal reflux disease without esophagitis 599825123 K21.9 stableNo current sxs.Contin ue omeprazole 40 mg BID.Monito r sxs Osteoarthritis 568425689 M15.0 stablefent anyl 50 mcg patch q72 hrAPAP 1000 mg tidtramado l 25 mg bid prn Type 2 russel betes mellitus 00634878 E11.9 continue lantus 15 units at [facility] FS [id number] NELDA MANSFIELD [address] [address] 05/09/2024 11:51:06 05/10/2024 16:10:25 Cellulitis of left lower limb 1496075702 8114787 L03.116 resolved Atrial fibrillation 4943 6004 I48.0 stable without sx.Continu e eliquis 2.5 mg BID for AC.Monitor HR and bleeding risk.repor table sx reviewed. Gastroesop hageal reflux disease without esophagitis 983386002 K21.9 stableNo current sxs.Contin ue omeprazole 40 mg BID.Monito r sxs Osteoarthritis 922808959 M15.0 stablefent anyl 50 mcg patch q72 hrAPAP 1000 mg tidtramado l 25 mg bid Type 2 russel betes mellitus 66789868 E11.9 continue lantus 15 units at HSmonitor FS- mainly under 200sshe is without hypo/hyper glucose sx. Edema 722888072 R60.0 BLE decreased edema note, she is wearing wilma wrapsconti nue torsemide 20 mg daily and metolazone as ord. [id number] NEDLA MANSFIELD [facility] e [address] [place] [address] [place] [address] 05/12/2024 11:47:54 05/13/2024 11:46:56 Atrial fibrillation 11978109 I48.0 stable without sx.Continu e eliquis 2.5 mg BID for AC.Monitor HR and bleeding risk.repor table sx reviewed. Gastroesop hageal reflux disease without esophagitis 154122759 K21.9 stableNo current sxs.Contin ue omeprazole 40 mg BID.Monito r sxs Osteoarthritis 791463145 M15.0 stablefent anyl 50 mcg patch q72 hrAPAP 1000 mg tidtramado l 25 mg bid Type 2 russel betes mellitus 24384038 E11.9 continue lantus 15 units at [facility] FS- mainly under 200sshe is without hypo/hyper glucose sx. Edema 656888268 R60.0 BLE decreased edema note, she is wearing wilma wrapsconti nue torsemide 20 mg daily and metolazone as ord. Spinal roni nosis of lumbar region 41917435 M48.062 fentanyl patch 50 mcgprednis one 10 mg daily - taper to start 05/16/24de creasing by 1 mg per week. [id number] NELDA MANSFIELD [address] [place] [address] 05/16/2024 08:25:38 05/18/2024 09:23:51 Atrial fibrillation 45398691 I48.0 stable without sx.Continu e eliquis 2.5 mg BID for AC.Monitor HR and bleeding risk.repor table sx reviewed. Gastroesop hageal reflux disease without esophagitis 531343289 K21.9 stableNo current sxs.Contin ue omeprazole 40 mg BID.Monito r sxs Osteoarthritis 935890013 M15.0 stablefent anyl 50 mcg patch q72 hrAPAP 1000 mg tidtramado l 25 mg bid Type 2 russel betes mellitus 48657958 E11.9 [facility]- mainly under 200sshe is without hypo/hyper glucose sx. Edema 038436524 R60.0 BLE decreased edema note, she is wearing wilma wrapsconti nue torsemide 20 mg daily and metolazone as ord. Spinal roni nosis of lumbar region 47520936 M48.062 fentanyl patch 50 mcgprednis one 10 mg daily - taper to start 05/16/24de creasing by 1 mg per week. Itching of skin 17394745 0 L29.9 left shoulder is without redness or rashencour aged to apply lotion dailywill start claritin 10 mg daily. [id number] NELDA MANSFIELD [place] [address] [place] [address] 05/19/2024 11:11:15 05/23/2024 15:12:03 Atrial fibrillation 60383525 I48.0 stable without sx.Continu e eliquis 2.5 mg BID for AC.Monitor HR and bleeding risk.repor table sx reviewed. Gastroesop hageal reflux disease without esophagitis 965741182 K21.9 stableNo current sxs.Contin ue omeprazole 40 mg BID.Monito r sxs Osteoarthritis 405372566 M15.0 stablefent anyl 50 mcg patch q72 hrAPAP 1000 mg tidtramado l 25 mg bid Type 2 russel betes mellitus 40582274 E11.9 [facility]- mainly under 200sshe is without hypo/hyper glucose sx. Edema 806514461 R60.0 BLE decreased edema note, she is wearing wilma wrapsconti nue torsemide 20 mg daily and metolazone as ord. Spinal roni nosis of lumbar region 51764290 M48.062 fentanyl patch 50 mcgprednis one 10 mg daily - taper to start 05/16/24de creasing by 1 mg per week. Itching of skin 10052332 0 L29.9 left shoulder is without redness or rashencour aged to apply lotion dailywill start claritin 10 mg daily. [id number] NELDA MANSFIELD [address] [place] [address] 05/23/2024 07:53:51 05/24/2024 13:52:57 Atrial fibrillation 18037138 I48.0 stable without sx.Continu e eliquis 2.5 mg BID for AC.Monitor HR and bleeding risk.repor table sx reviewed. Gastroesop hageal reflux disease without esophagitis 383197920 K21.9 stableNo current sxs.Contin ue omeprazole 40 mg BID.Monito r sxs Osteoarthritis 585223604 M15.0 stablefent anyl 50 mcg patch q72 hrAPAP 1000 mg tidtramado l 25 mg bid Type 2 russel betes mellitus 66250065 E11.9 continue lantus 15 units at [facility]- mainly under 200sshe is without hypo/hyper glucose sx. Edema 803813516 R60.0 BLE decreased edema note, she is wearing wilma wrapsconti nue torsemide 20 mg daily and metolazone as ord. Spinal roni nosis of lumbar region 36029041 M48.062 fentanyl patch 50 mcgprednis one 10 mg daily - taper to start 05/16/24de creasing by 1 mg per week. Itching of skin 54185185 0 L29.9 left shoulder is without redness or rashencour aged to apply lotion dailywill start claritin 10 mg daily. [id number] NELDA MANSFIELD [address] [place] [address] 05/27/2024 07:54:05 05/30/2024 13:39:41 Atrial fibrillation 16145374 I48.0 stable without sx.Continu e eliquis 2.5 mg BID for AC.Monitor HR and bleeding risk.repor table sx reviewed. Gastroesop hageal reflux disease without esophagitis 321115230 K21.9 stableNo current sxs.Contin ue omeprazole 40 mg BID.Monito r sxs Osteoarthritis 147644698 M15.0 stablefent anyl 50 mcg patch q72 hrAPAP 1000 mg tidtramado l 25 mg bid Type 2 russel betes mellitus 87895525 E11.9 continue lantus 15 units at [facility]- mainly under 200sshe is without hypo/hyper glucose sxwill need updated A1c as we taper off prednisone Edema 634626546 R60.0 improved with compressio n stockings. continue torsemide 20 mg daily and metolazone as ord. Spinal roni nosis of lumbar region 81117098 M48.062 fentanyl patch 50 mcgprednis one 10 mg daily - tapering off 1 mg per weekdecrea sing by 1 mg per week. Itching of skin 75499071 0 L29.9 stableleft shoulder is without redness or rashencour aged to apply lotion dailywill start claritin 10 mg daily. [id number] NELDA MANSFIELD [place] [address] [place] [address] [place] [address] 06/02/2024 09:27:55 06/06/2024 12:53:38 Atrial fibrillation 56576035 I48.0 stable without sx.Continu e eliquis 2.5 mg BID for AC.Monitor HR and bleeding risk.repor table sx reviewed. Gastroesop hageal reflux disease without esophagitis 485193975 K21.9 reports hypogastri c non radiating pain+ nausea no vomitinNo current sxs.Contin ue omeprazole 40 mg BID.Monito r sxs Osteoarthritis [id number] M15.0 stablefent anyl 50 mcg patch q72 hrAPAP 1000 mg tidtramado l 25 mg bid Type 2 russel betes mellitus 47826105 E11.9 stablecont inue lantus 15 units at [facility] FS- mainly under 200sshe is without hypo/hyper glucose sx Edema 102457889 R60.0 improved with compressio n stockings. continue torsemide 20 mg daily and metolazone as ord. Blister of lower leg without infection 14079207 S80.822A initially fluid filled with clear liquidnow burst-anais ent recently tx for cellulitis , I prefer wound to be tx with and antispetic nursing ord to cleanse with NS 0r warm soap and water dialy, paint with betadine with non adhesive dressing and kerlix. [id number] BRYAN BERNARDO, [address] [address] 06/06/2024 08:41:07 06/07/2024 11:48:57 Atrial fibrillation 15471747 I48.0 stable without sx.Continu e eliquis 2.5 mg BID for AC.Monitor HR and bleeding risk.repor table sx reviewed. Gastroesop hageal reflux disease without esophagitis [id number] K21.9 No current sxs.Contin ue omeprazole 40 mg BID.Monito r sxs Osteoarthritis 435483410 M15.0 stablefent anyl 50 mcg patch q72 hrAPAP 1000 mg tidtramado l 25 mg bid Type 2 russel betes mellitus 14299696 E11.9 stablecont inue lantus 15 units at [facility] FS- mainly under 200sshe is without hypo/hyper glucose sx Edema 044736966 R60.0 continue torsemide 20 mg daily and metolazone as ord. Blister of lower leg without infection 42969374 S80.822A initially fluid filled with clear liquidnow burst-anais ent recently tx for cellulitis , I prefer wound to be tx with and antispetic as well.adriani asia ord to cleanse with NS 0r warm soap and water dialy, paint with betadine cover with xeroform dressing and kerlix. [id number] BRYAN BERNARDO [address] [address] 06/16/2024 11:11:20 06/21/2024 11:07:01 Edema 978216155 R60.0 continue torsemide 20 mg daily and metolazone as ord. Blister of lower leg without infection 18873425 S80.822A initially fluid filled with clear liquidnow [...] recs to continue current tx ords. Dysuria 61903601 R30.0 send urine for UA with C&Swater encouraged to flush out toxins Fatigue 58761771 R53.83 recheck bmp, cbc, TSH,iron , ammonia and Vit B & D levels on 06/17 [id number] NELDA MANSFIELD [address] [place] [address] 06/27/2024 12:04:26 06/30/2024 11:21:08 Cellulitis of right lower limb [id number] 8126235 L03.115 2/2 diabetes and decreased skin integrity from venous stasis and chronic prednisone usetx with IV ancef in acute carecomple cassie po abx keflex on 06/24follo wed by Wound MD Venous ins ufficiency of leg 024588910 I87.2 chronic BLE edema/RLE acute DVT /right almanza erupted skin blisterdis cussed with nursing, continue eliquis and wound tx with xeroform Acute deep venous thrombosis of femoral vein 7391751038 32598 I82.419 non occlusive/ RLEon eliquis 5 mg BID Chronic heart failure 48 404508 I50.9 acute on chronic/el evated BNP tx with IV lasixCXR showed interstiti al markings but difficult to interpret due to underlying fibrosisco ntinue torsemide and metolazone monitor labs Edema 915607745 R60.0 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 [id number] NELDA MANSFIELD [address] [place] [address] 06/30/2024 08:36:09 07/01/2024 12:09:02 Cellulitis of right lower limb [id number] 2926885 L03.115 completed abxdenies any pain, per nsg no erythema or warmth Venous ins ufficiency of leg 220640620 I87.2 chronic BLE edema/RLE acute DVT /right almanza erupted skin blisterdis cussed with nursing, continue eliquis and wound tx Acute deep venous thrombosis of femoral vein 7188727713 64603 I82.419 non occlusive/ RLEon eliquis 5 mg BID Chronic heart failure 48 342140 I50.9 acute on chronic/el evated BNP tx with IV lasixCXR showed interstiti al markings but difficult to interpret due to underlying fibrosisco ntinue torsemide and metolazone baseline crackles with hx of pulm. 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 Wound 366721256 T14.90 XA see pi2/2 to erupted blisterfol lowed by wound MD with recent changes to oil emulsion.shelbie kelly provided why tx was changedwil l resume previous tx order of NS and betadine per patient request and have wound re evaldiscus sed with nursing [id number] NELDA MANSFIELD [address] [place] [address] 07/04/2024 10:17:37 07/05/2024 14:29:23 Venous insufficiency of leg 352300243 I87.2 stablechro gavin BLE edema/RLE acute DVT /right almanza erupted skin blisterdis cussed with nursing, continue eliquis and wound tx Acute deep venous thrombosis of femoral vein 7249178922 61077 I82.419 non occlusive/ RLEon eliquis 5 mg BID Chronic heart failure 48 457602 I50.9 acute on chronic/el evated BNP tx with IV lasixCXR showed interstiti al markings but difficult to interpret due to underlying fibrosisco ntinue torsemide and metolazone baseline crackles with hx of pulm. fibrosismo nitor labs Edema 174552665 R60.0 chronic/st abl;e with no increase on exam todayconsi jeff referral to lymphedema clinic - she often c/o pain, she is at increase risk for recurrent infection. Wound 724373721 T14.90 XA see pi2/2 to erupted blisterfol lowed by wound with recent changes to oil emulsion.shelbie kelly provided why tx was changedwil l resume previous tx order of NS and betadine per patient request and have wound re evaldiscus sed with nursing [id number] NELDA MANSFIELD [address] [place] [address] 07/07/2024 08:16:53 07/08/2024 13:27:39 Venous insufficiency of leg 110752228 I87.2 stablechro gavin BLE edema/RLE acute DVT /right lamanza erupted skin blisterdis cussed with nursing, continue eliquis and wound txseen by wound with new order changes made in pcc. Acute deep venous thrombosis of femoral vein 6957376135 52422 I82.419 non occlusive/ RLEon eliquis 5 mg BID Chronic heart failure 48 754709 I50.9 continue torsemide and metolazone baseline crackles with hx of pulm. fibrosismo nitor labs Edema 350608560 R60.0 chronic/st ableconsid er referral to lymphedema clinic - she often c/o pain, she is at increase risk for recurrent infection. [id number] NELDA MANSFIELD [address] [address] 07/11/2024 10:40:35 07/12/2024 12:07:39 Venous insufficiency of leg 103061224 I87.2 stablechro gavin BLE edema/RLE acute DVT /right almanza erupted skin blisterdis cussed with nursing, continue eliquis and wound txfollowed by wound /continu e current tx orders. Acute deep venous thrombosis of femoral vein 3882392289 37108 I82.419 non occlusive/ RLEon eliquis 5 mg BID Chronic heart failure 48 338475 I50.9 baseline BLE edema, otherwise no worsening edema notedconti nue torsemide and metolazone baseline crackles with hx of pulm. fibrosismo nitor labs Edema 486772103 R60.0 chronic/st ableconsid er referral to lymphedema clinic - she often c/o pain, she is at increase risk for recurrent infection. 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 [place] Alcaraz [id number] Dallas Alcaraz 07/11/2024 2 [place] [facility] Dallas Alcaraz [id number] Dallas Alcaraz 07/11/2024 1 [place] [facility] Dallas Alcaraz [id number] Dallas Alcaraz 07/15/2024 2 [place] [facility] Dallas Alcaraz [id number] Dallas Alcaraz 07/15/2024 1 MEDICARE B-[place]: [facility] Dallas Alcaraz [id number] Dallas Alcaraz 07/18/2024 2 [place] [facility] Dallas Alcaraz [id number] Dallas Alcaraz 07/18/2024 1 [place] [facility] [facility] Dallas Alcaraz [id number] Dallas Alcaraz 07/21/2024 2 [place] [facility] Dallas Alcaraz [id number] Dallas Alcaraz 07/21/2024 1 [place]: [facility] Dallas Alcaraz [id number] Dallas Alcaraz Notes Date Note Type Note [...] and history of PE NELDA MANSFIELD [address], [address], [place], [address], [employer] 07/07/2024 15:22:09 07/11/2024 text/html [place] is an [...] and history of PE NELDA MANSFIELD [address], [address], [place], [address], [employer] 07/11/2024 14:31:09 07/15/2024 text/html This is an 84 yr old women seen for acute rounding visit, she is reporting dysuria for a few days and states sx are similar to past UTI complaints. she denies any frequency or urgency, she has been afebrile. NELDA MANSFIELD [address], [address], [place], [address], [employer] 07/15/2024 12:35:05 07/18/2024 text/html This is an 84 yr old women seen for acute rounding visit for follow for dysuria. Recent UA negative for infection, pt updated on results, she now reports that she is no longer experiencing sx.she encouraged to increase fluid preferably water. NELDA MANSFIELD [address], [address], [place], [address], [facility] [employer] 07/18/2024 12:28:32 07/21/2024 text/html This is an 84 yr old women seen for acute rounding visit. She has been at baseline in [facility], today she is doing ok, there are no acute concerns. 07/21/24 Tested negative for covid NELDA MANSFIELD [address], [address], [place], [address], [facility] [employer] 07/21/2024 15:46:48 OBGyn Episode No OBEpisode recorded.
[2024-12-05 06:59] LABS: Basophils Absolute Auto 0.1 X10*3/uL (0.0-0.2); Basophils Percent Auto 0.8 % (0-2); Eosinophils Absolute Auto 0.3 X10*3/uL (0.0-0.4); Eosinophils Percent Auto 3.5 % (0-4); Hematocrit 35.1 % (37.0-47.0); Hemoglobin 10.9 g/dl (12.0-16.0); Imm Gran Abs Auto 0.09 X10*3/uL (0.00-0.03); Imm Gran Pct Auto 1.1 % (0.0-0.4); Lymphocytes Absolute Auto 2.1 X10*3/uL (1.2-4.9); Lymphocytes Percent Auto 25.4 % (20-40); Mean Corpuscular HGB Conc 31.1 g/dl (31.0-35.0); Mean Corpuscular Hemoglobin 30.7 pg (27.0-33.0); Mean Corpuscular Volume 98.9 fL (80.0-98.0); Monocytes Absolute Auto 1.2 X10*3/uL (0.1-1.2); Neutrophils Absolute Auto 4.6 x10*3/uL (2.0-8.3); Neutrophils Percent Auto 55.2 % (45-73); Platelet Count 257 X10*3/uL (160-400); Red Blood Count 3.55 X10*6/uL (4.20-5.50); Red Cell Distribution Width 14.6 % (11.0-16.0); White Blood Count 8.3 X10*3/uL (4.8-10.8)
[2024-12-05 07:04] LABS: Anion Gap 14 (12-20); Blood Urea Nitrogen 22 mg/dL (9-16); Calcium 9.2 mg/dL (8.4-10.2); Carbon Dioxide 28 mmol/L (22-29); Chloride 103 mmol/L (96-108); Estimated Glomerular Filt Rate 52; Glucose Random 104 mg/dL (60-115); Potassium 4.5 mmol/L (3.3-5.1); Sodium 140 mmol/L (135-145)
== END 2024-12-05 06:16 | disposition home or self-care (01) ==
LOC: HO.MMNH3L 06:15
PROVIDERS: Visit Provider Family Medicine
DX: I10 Essential (primary) hypertension (principal)
CPT/HCPCS: 36415; 80048; 85025

== ENCOUNTER 2024-12-23 16:00 | Outpatient (REF) | payer MEDICARE, MEDICAID, SELFPAY ==
--- OUTSIDE RECORDS SUMMARY | 2024-12-23 16:03 | XMS_ITS | Data Portability ---
Author Organization ID - [facility], Main Office Address [address] [facility], [address] [place] [id number] Care Team Providers Care Senior Auditor Name Role Phone KAREEM HAYNES 3RD FLOOR OTHER [phone] Assessment Encounter Date Assessment Date Assessment LastModified [...] Address Organization Details Recorded Time Severe pain [id number] Active 2021 back pain BRYANNA URBANO, MIKIE [address] [facility], [address], [place], [address], [facility] 2 13:15:21 Adult failure to thrive syndrome 282916886 Active 2021 BRYANNA URBANO NP [address], [address], [place], [address], [facility] 2 13:15:35 Fall Active 2021 BRYANNA URBANO NP [address], [address], [place], [address], [facility] 2 13:15:44 Gastroes ophageal reflux disease without esophagi tis 317291767 Active 2021 BRYANNA URBANO NP [address], [address], [place], [address], [facility] 2 13:16:01 Osteoart hritis 839092655 Active 2021 BRYANNA URBANO NP [address] [facility], [address], [place], [address], [facility] 2 13:16:10 Mixed anxiety and depressi ve disorder 417007976 Active 2021 BRYANNA URBANO NP [address] [facility], [address], [place], [address], [facility] 3 10:40:32 Hypothyr oidism 89348829 Active 2021 BRYANNA URBANO NP [address] [facility], [address], [place], [address], [facility] 2 13:16:28 Osteopor osis 32986641 Active 2021 BRYANNA URBANO NP [address], [address], [place], [address], [facility] 2 13:17:10 Atrial fibrilla tion 39147992 Active 2021 BRYANNA URBANO, MIKIE [address], [address], [place], [address], [facility] 2 14:21:30 Hyperlip idemia 04567125 Active 2021 BRYANNA URBANO, [employer] [address], [address], [place], [address], [facility] 2 14:21:52 Spinal stenosis of lumbar region 98517559 Active 2021 Ana Damon MD [address], [address], [place], [address], [facility] 2 19:13:30 Edema 389806195 Active 2021 BRYANNA URBANO, [employer] [address], [address], [place], [address], [facility] 2 13:22:11 Hypokale doretha 18999754 Active 2021 Ana Damon MD [address] [facility], [address], [place], [address], [facility] 2 23:44:02 Pancreat itis 86932458 Active 2021 BRYANNA URBANO, [employer] [address] [facility], [address], [place], [address], [facility] 2 14:58:02 Generali zed osteoart hritis 353109939 Active 2021 Ana Damon MD [address] [facility], [address], [place], [address], [facility] 2 14:42:49 Contusio n 782007946 Active 2021 right buttock BRYANNA YOLIE, [employer] [address] [facility], [address], [place], [address], [facility] 3 12:37:52 COVID-19 961247501 Active 2021 BRYANNA YOLIE, [employer] [address], [address], [place], [address], [facility] 2 10:44:44 Dislocat ion of shoulder joint 833990806 Active 2022 Margarette Awad, MIKIE [address], [address], [place], [address], [facility] 3 11:28:04 Chronic neck pain 89793819397 07 Active 2022 Ana Damon MD [address], [address], [place], [address], [facility] 3 21:36:27 Nausea 705873179 Active 2022 Ana Damon MD [address], [address], [place], [address], [facility] 3 21:36:31 Type 2 diabetes mellitus 13700353 Active 2022 Ana Damon MD [address], [address], [place], [address], [facility] 3 20:16:36 Contusio n of face 046773539 Active 2022 BRYANNA URBANO NP [address], [address], [place], [address], [facility] 3 12:37:45 Urinary tract infectio us disease 56862740 Active 2023 NELDA MANSFIELD [address], [place], [address], [facility] 4 14:59:19 Dyspnea 085357855 Active 2023 NELDA MANSFIELD [address], [place], [address], [facility] 4 22:03:33 Neuropat hy 556255428 Active 2023 NELDA MANSFIELD [address], [address], [place], [address], [facility] 4 22:17:58 Constipa tion 96973831 Active 2023 NELDA MANSFIELD [address], [address], [place], [address], [facility] 4 22:22:39 Chronic pain 46652273 Active 2023 Ana Damon MD [address], [address], [place], [address], [facility] 4 10:49:48 Cellulit is 776375543 Active 2023 NELDA MANSFIELD [address] [facility], [address], [place], [address], [facility] 4 09:09:15 Manav contreras 97530273 Completed 202306/06/2024 on predniso ne 10 mg daily NELDA MANSFIELD [address] [facility], [address], [place], [address], [facility] 4 15:48:25 Venous insuffic iency of leg 641709417 Active 2023 NELDA MANSFIELD [address] [place] [address], [address], [place], [address], [facility] 4 02:16:11 Chronic heart failure 66334159 Active 2023 NELDA MANSFIELD [address] [place] [address], [address], [place], [address], [facility] 4 02:24:16 Problem Notes None recorded. Medical Equipment None Reported. Allergies Allergen ID Allergen Name Allergen Category Reaction Reaction Severity Criticality Documentation Date Start Date Code Code System Note Provider Name and Address Organization Details Recorded Time 55095 amitripty line medicatio n Not available Not available Not available 09/25/2021 704 RxNorm BRYANNA MIKIE URBANO [address] [facility], [address], [place], [address], [facility] 2 13:14:24 99275 morphine medicatio n Not available Not available Not available 09/25/2021 7052 RxNorm BRYANNA MIKIE URBANO [address] [facility], [address], [place], [address], [facility] 2 13:14:30 46470 oxycodone medicatio n Not available Not available Not available 09/25/2021 7804 RxNorm BRYANNA MIKIE URBANO [address] [facility], [address], [place], [address], [facility] 2 13:14:37 29046 Demerol medicatio n Not available Not available Not available 09/25/2021 96475 1 RxNorm BRYANNA YOLIE, [employer] [address], [address], [place], [address], [facility] 2 13:14:42 86780 Phenergan medicatio n Not available Not available Not available 09/25/2021 24278 8 RxNorm BRYANNA YOLIE, [employer] [address] [facility], [address], [place], [address], [facility] 2 13:14:50 25560 lactose food,medi cation Not available Not available Not available 09/25/2021 6211 RxNorm BRYANNA YOLIE, [employer] [address] [facility], [address], [place], [address], [facility] 2 13:14:59 Medications Name Sig Start [...] Updated DateTime 07/07/2024 162.56 cm NELDA MANSFIELD [address] [place] [address], [facility] [address], [place], [address], [facility] 07/07/2024 08:58:12 Date Recorded Body height Provider Name an d Address Organization Details Last Updated DateTime 07/11/2024 162.56 cm NELDA MANSFIELD [address] [facility], [address], [place], [address], [facility] 07/11/2024 14:23:34 Date Recorded Body height Heart rate Oxygen saturation Oxygen saturation in Arterial blood by Pulse oximetry Provider Name and Address Organization Details Last Updated DateTime 07/21/2024 162.56 cm 78 /min 95 % 95 % NELDA MANSFIELD [address] [facility], [address], [place], [address] , [facility] [employer] 07/21/2024 15:42:40 Social History Question Answer Notes LastModified by Organizat ion Details LastModified Time Tobacco Smoking Status Former Smoker can't remember when she quit Ana Damon MD [address] [place] [address], [address], [place], [address], [facility] [employer] 09/26/2021 19:09:18 Do You Have An Advance Directive? Yes Information not available 09/26/2021 What Is Your Code Status? DNR/DNI Information not available 09/25/2021 Where Do You Live? [facility]. Was Living With Son, But He Is Not Home During The Day. Information not available 05/29/2023 Legal Guardian? 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 Yes Invoked Information not available [...] adjuvanted, quadrivalent, PF 05/21/2022 completed Dena maza, [facility] 08/17/2023 10:49:52 Influenza, adjuvanted, quadrivalent, PF 03/04/2023 completed Dena maza [place] - [facility] 08/17/2023 10:50:06 Past Encounters Encounter ID Performer Location Encounter Start Date Encounter Closed Date Diagnosis/Indication Diagnosis SNOMED-CT Code Diagnosis ICD10 Code Diagnosis Note [id number] BRYANNA URBANO NP [address] [address] 09/25/2021 09:13:56 09/30/2021 13:45:49 Severe pain 45335601 R52 fentanyl patch 50 mcgdilaudi d 1 mg q4hr prnprednis one 10 mg dailyrepos ition prnhospice consult and admission Osteoporosis 18020699 M8 1.0 methotrexa te 2.5 dronate 70 thursdaypred nisone 10 mg daily Osteoarthritis 572009961 M19.90 dilaudid 1 mg q4 hr prnfentany l 50 mcg patch Mixed anxi ety and depressive disorder 320161641 F41.8 wellbutrin xl 150 mg bid Hypothyroidism 38541074 E03.9 levothyrox ine 200 mcg daily Gastroesop hageal reflux disease without esophagitis 316312331 K21.9 omeprazole 40 mg daily Adult fail ure to thrive syndrome 518363159 R62.7 encourage po intake Fall W19.XXXA PT OT eval and treatfall precaution sfrequent safety checks Atrial fibrillation 4943 6004 I48.91 eliquis 5 mg bidlasix 40 mg daily Hyperlipidemia 23077780 E78.5 atorvastat in 40 mg daily [id number] Ana Damon MD [address] [place] [address] 09/26/2021 15:54:36 09/30/2021 14:03:56 Osteoporosis 61893814 M81.0 Will d/c alendronat e Osteoarthritis 990817964 M15.0 Unclear what she is on MTX for, if it's OA or pulmonary fibrosis.C ontinue methotrexa te 2.5 mg weekly.Chelsi n control as above. Mixed anxi ety and depressive disorder 636124634 F41.8 Continue wellbutrin xl 150 mg BID.Monito r mood. Hypothyroidism 38744856 E03.8 With elevated TSH, but nl FT4. Will leave dosing as is for now, bayron. since pt is transition ing to hospice.Co ntinue levothyrox ine 200 mcg qd.No further labs. Gastroesop hageal reflux disease without esophagitis 975232709 K21.9 Continue omeprazole 40 mg qd.Monitor sxs/ Adult fail ure to thrive syndrome 310154868 R62.7 Continue oral supplement s as able. fall W19.XXXA Unable to participat e in rehab.Cont inue fall precaution s.Monitor for safety. Atrial fibrillation 4943 6004 I48.0 Rate in good control on no rate controllin g meds.Leonora nue eliquis 5 mg BID for AC.Monitor HR and bleeding risk Hyperlipidemia 37388114 E78.49 Will d/c atorvastat inNo further labs Spinal roni nosis of lumbar region 47332255 M48.062 With continued distress, unclear how much is pain and how much is behavioral .Will start roxanol 5 mg q 4 hrs scheduled and q 1 hr prn. Hold for oversedati on.Continu e fentanyl patch 50 mcg q 72 hrs and dilaudid 1 mg q 4 hrs prnContinu e prednisone 10 mg qd.Hospice consult pending. [id number] MIKIE DUONG [address] [place] [address] 09/27/2021 10:49:34 09/30/2021 14:31:05 Mixed anxiety and depressive disorder 304421027 F41.8 wellbutrin xl 150 mg bid-pm dose is 50 mg a week decrease until donethen remeron can be startedris perdal 0.5 mg bidAIMs 0 Adult fail ure to thrive syndrome 975408626 R62.7 encourage po intakereme sonal 7.5 mg hs [id number] MIKIE DUONG [address] [place] [address] 09/30/2021 12:53:54 10/04/2021 13:57:38 Mixed anxiety and depressive disorder 809259961 F41.8 wellbutrin xl 150 mg bid-pm dose is 100 mg decrease for 7 days then discontinu ishan remeron can be startedris perdal 0.5 mg bid-decrea sed to 0.25 mg am, 0.5 mg hsAIMs 0 Adult fail ure to thrive syndrome 325441899 R62.7 encourage po intakereme sonal 7.5 mg hs when hs wellbutrin finished Spinal roni nosis of lumbar region 86595330 M48.062 fentanyl patch 50 mcg q72 daysdilaud id 1 mg q4hr prnprednis on 10 mg daily [id number] MD KAREEM Whitaker [address] [place] [address] 10/01/2021 19:18:36 10/04/2021 14:59:14 Spinal stenosis of lumbar region 18938972 M48.062 Continue fentanyl patch 50 mcg q 72 hrs and dilaudid 1 mg q 4 hrs prnContinu e prednisone 10 mg qd.Reconsi jeff hospice consult if pt. not able to tolerate med changes as below. Mixed anxi ety and depressive disorder 516972001 F41.8 Continue Wellbutrin 150 mg qAM and PM dose 100 mg until 10/08 then d/c pm doseStart mirtazapin e 7.5 mg qhs on 10/08Contin ue risperdal 0.25 mg qam and 0.5 mg qhsMonitor effect. Adult fail ure to thrive syndrome 240953672 R62.7 encourage po intakeStar t remeron 7.5 mg hs when hs wellbutrin finished as above. [id number] MIKIE DUONG [address] [place] [address] 10/03/2021 10:04:53 10/09/2021 15:41:28 Adult failure to thrive syndrome 560379675 R62.7 encourage po intakereme sonal 7.5 mg hs when hs wellbutrin finished 10/08 Mixed anxi ety and depressive disorder 870360850 F41.8 wellbutrin xl 150 mg bid-pm dose is 100 mg decrease for 7 days then discontinu e 10/08then remeron can be startedris perdal 0.5 mg bid-decrea sed to 0.25 mg am, 0.5 mg hsAIMs 0 Severe pain 71070845 R52 fentanyl patch 50 mcgdilaudi d 1 mg q4hr prn-d/c due to lack of useprednis one 10 mg dailyrepos ition prnhospice consult and admissionr oxanol was d/c due to morphine allergy [id number] BRYANNA URBANO NP [address] [address] 10/09/2021 10:18:53 10/14/2021 14:25:24 Mixed anxiety and depressive disorder 991957214 F41.8 wellbutrin xl 150 mg bid-pm dose is 100 mg decrease for 7 days then discontinu e 10/08then remeron can be startedris perdal 0.5 mg hs-am dose d/cAIMs 0 Adult fail ure to thrive syndrome 272319680 R62.7 encourage po intakereme sonal 7.5 mg hs when hs wellbutrin finished 10/08 Severe pain 15279377 R52 fentanyl patch 50 mcgdilaudi d 1 mg q4hr prn-d/c due to lack of useprednis one 10 mg dailyrepos ition prnhospice consult and admissionr oxanol was d/c due to morphine allergy [id number] BRYANNA URBANO NP [address] [address] 10/11/2021 10:22:56 10/14/2021 15:05:22 Mixed anxiety and depressive disorder 000706152 F41.8 wellbutrin xl 150 mg bid-pm dose is 100 mg decrease for 7 days then discontinu e 10/08then remeron can be startedris perdal 0.5 mg hs-am dose d/cAIMs 0 Adult fail ure to thrive syndrome 082938803 R62.7 encourage po intakereme sonal 7.5 mg hs when hs wellbutrin finished 10/08 Severe pain 02510427 R52 fentanyl patch 50 mcgdilaudi d 1 mg q4hr prn-d/c due to lack of useprednis one 10 mg dailyrepos ition prnhospice consult and admissionr oxanol was d/c due to morphine allergy [id number] BRYANNA URBANO NP [address] [address] 10/14/2021 12:20:18 10/16/2021 14:26:14 Severe pain 70674242 R52 fentanyl patch 50 mcgprednis one 10 mg dailyrepos ition prnroxanol was d/c due to morphine allergy Mixed anxi ety and depressive disorder 442520681 F41.8 wellbutrin xl 150 mgremeron 7.5 mg dailyrispe rdal 0.5 mg hs-am dose d/cAIMs 0 Fall W19.XXXA PT OT eval and treatfall precaution sfrequent safety checks [id number] BRYANNA URBANO NP [address] [address] 10/16/2021 13:18:48 10/23/2021 10:49:11 Adult failure to thrive syndrome 262781876 R62.7 encourage po intakereme sonal 7.5 mg hs when hs wellbutrin finished 10/08 Mixed anxi ety and depressive disorder 822575734 F41.8 wellbutrin xl 150 mgremeron 7.5 mg dailyrispe rdal 0.5 mg hs-am dose d/cAIMs 0 Severe pain 68787086 R52 fentanyl patch 50 mcgprednis one 10 mg dailyrepos ition prnroxanol was d/c due to morphine allergy Edema 412018658 R60.9 lasix 40 mg daily will increase to bid for 7 days [id number] NELDA Gardiner [address] [address] 10/18/2021 11:22:25 10/23/2021 11:24:28 Adult failure to thrive syndrome 033187907 R62.7 Appetite improveden courage po intakereme sonal 7.5 mg QHSMonitor weights Mixed anxi ety and depressive disorder 632184695 F41.8 wellbutrin xl 150 mgremeron 7.5 mg dailyrispe rdal 0.5 mg hsMonitor moodPsych eval prn Severe pain 27452980 R52 fentanyl patch 50 mcgprednis one 10 mg dailyBack pain now well controlled Monitor Edema 344590683 R60.9 Lasix 40 mg BIDACE wraps BLEElevate legs as toleratedM onitor [id number] BRYANNA URBANO NP [address] [address] 10/21/2021 10:50:08 10/23/2021 11:52:29 Edema 550818808 R60.9 lasix 40 mg bidmetolaz one 2.5 mg tues, thursace wraps Severe pain 25312359 R52 fentanyl patch 50 mcgprednis one 10 mg dailyrepos ition prnroxanol was d/c due to morphine allergy [id number] BRYANNA URBANO NP [address] [address] 10/24/2021 10:43:36 10/29/2021 12:14:04 Edema 034579467 R60.9 lasix 40 mg bidmetolaz one 2.5 mg tues, thurs, add a dose sundayace wraps Adult fail ure to thrive syndrome 139072858 R62.7 encourage po intakereme sonal 7.5 mg hs Mixed anxi ety and depressive disorder 735714534 F41.8 wellbutrin xl 150 mgremeron 7.5 mg dailyrispe rdal 0.5 mg hs- decrease hs dose to 0.25 mgAIMs 0 [id number] BRYANNA URBANO NP [address] [address] 10/30/2021 10:59:13 11/05/2021 10:01:44 Adult failure to thrive syndrome 946238678 R62.7 encourage po intakereme sonal 7.5 mg hs Mixed anxi ety and depressive disorder 105209002 F41.8 wellbutrin xl 150 mgremeron 7.5 mg dailyrispe rdal 0.25 mg- discontinu eAIMs 0 Severe pain 37667999 R52 fentanyl patch 50 mcgprednis one 10 mg dailyrepos ition prnroxanol was d/c due to morphine allergy [id number] Ana Damon MD [address] [address] 11/19/2021 18:25:18 11/25/2021 15:04:26 Adult failure to thrive syndrome 398505650 R62.7 Doing much better. Wt. has been stable.Say s her appetite is good.Leonora nue mirtazapin e 7.5 mg qhs.Monito r wts. Mixed anxi ety and depressive disorder 241572079 F41.8 Mood good today.Cont inue wellbutrin XL 150 mg qd and mirtazapin e 7.5 mg qhsMonitor mood.Consu lt psych prn Severe pain 12737890 R52 Under good control on fentanyl patch 50 mcg q 3 days, prednisone 10 mg qd, and APAP prnRestart ing PT this week.Monit ro Edema 797088268 R60.0 Continue lasix 40 mg BID and metolazone 2.5 mg 2x/wk on & .Cont inue wilma wraps daily.Carmela tor Hypokalemia 78971215 E87 .6 With borderline low K+ for awhile. Has never been on K+ supplement .Will recheck next week and if still low will add KCL 10 meq qd.Monitor [id number] MIKIE DUONG [address] [place] [address] [place] [id number] 12/12/2021 10:09:42 12/17/2021 16:08:08 Adult failure to thrive syndrome 152772980 R62.7 Doing much better. Wt. has been stable.Say s her appetite is good.Leonora nue mirtazapin e 7.5 mg qhs.Monito r wts. Mixed anxi ety and depressive disorder 595793104 F41.8 Mood good today.well butrin XL 150 mg qd and mirtazapin e 7.5 mg qhsMonitor mood.Consu lt psych prn Severe pain 74601508 R52 Under good control on fentanyl patch 50 mcg q 3 days, prednisone 10 mg qd, and APAP prnRestart ing PT this week.Monit ro Edema 452162339 R60.0 lasix 40 mg BIDmetolaz one 2.5 mg 2x/wk on & .Cont inue wilma wraps daily.Carmela tor Hypokalemia 31968083 E87 .6 With borderline low K+ for awhile. Has never been on K+ supplement .Will recheck next week and if still low will add KCL 10 meq qd.Monitor Atrial fibrillation 4943 6004 I48.0 eliquis 5 mg bidlasix 40 mg bid daily Gastroesop hageal reflux disease without esophagitis 313515979 K21.9 omeprazole 40 mg daily Hyperlipidemia 75649023 E78.49 atorvastat in 40 mg daily Hypothyroidism 54100917 E03.8 levothyrox ine 200 mcg daily Osteoarthritis 705220719 M15.0 fentanyl 50 mcg patch q72 hr Osteoporosis 17903498 M8 1.0 methotrexa te 2.5 dronate 70 thursdaypred nisone 10 mg daily Spinal roni nosis of lumbar region 12563188 M48.062 fentanyl patch 50 mcg q72 hourspredn isone 10 mg daily Fall W19.XXXA PT OT eval and treatfall precaution sfrequent safety checks [id number] MIKIE DUONG [address] [place], [place] [address] 01/03/2022 14:55:57 01/06/2022 20:46:48 Pancreatitis 71598528 K85.90 monitor for symptomsmo nitor labs Adult fail ure to thrive syndrome 665097712 R62.7 Doing much better. Wt. has been stable.Say s her appetite is good.gary zapine 7.5 mg qhs.Monito r wts. Mixed anxi ety and depressive disorder 143754131 F41.8 Mood good today.well butrin XL 150 mg bidmirtaza pine 7.5 mg qhsMonitor mood.Consu lt psych prn Severe pain 14857769 R52 Under good control on fentanyl patch 50 mcg q 3 days,predn isone 10 mg qd,APAP 650 mg q4hr prnPT OT eval and treat prnMonitor Edema 093117651 R60.0 lasix 40 mg BIDmetolaz one 2.5 mg 2x/wk on & , thursday.Con tinue wilma wraps daily.Carmela tor Hypokalemia 35944446 E87 .6 With borderline low K+ for awhile. Has never been on K+ supplement .Monitor Atrial fibrillation 4943 6004 I48.0 eliquis 5 mg bidlasix 40 mg bid dailymetol azone 2.5 mg Gastroesop hageal reflux disease without esophagitis 508283881 K21.9 omeprazole 40 mg daily Hyperlipidemia 68871536 E78.49 atorvastat in 40 mg daily Hypothyroidism 11559571 E03.8 levothyrox ine 200 mcg daily Osteoarthritis 274073144 M15.0 fentanyl 50 mcg patch q72 hr Osteoporosis 85120986 M8 1.0 prednisone 10 mg daily Spinal roni nosis of lumbar region 41828316 M48.062 fentanyl patch 50 mcg q72 hourspredn isone 10 mg daily Fall W19.XXXA PT OT eval and treatfall precaution sfrequent safety checks [id number] BRYANNA MIKIE URBANO [address] [address] 01/06/2022 10:28:02 01/09/2022 13:18:55 Edema 972469125 R60.0 lasix 40 mg BIDmetolaz one 2.5 mg 2x/wk on thursday.Con tinue wilma wraps daily.Carmela tor Pancreatitis 18848742 K8 5.90 monitor for symptomsmo nitor labs [id number] BRYANNA URBANO NP [address] [address] 01/08/2022 12:46:02 01/10/2022 16:30:00 Edema 014374394 R60.0 lasix 40 mg BIDmetolaz one 2.5 mg 2x/wk on thursday.Con tinue wilma wraps daily-comp ression stockingsM onitor Pancreatitis 03952146 K8 5.90 monitor for symptomsmo nitor labs [id number] BRYANNA URBANO NP [address] [address] 01/10/2022 11:53:05 01/14/2022 12:50:34 Hypothyroidism 53716414 E03.8 levothyrox ine 200 mcg daily-incr ease to 225 mcgrecheck tsh-free T4 in 6 weeks [id number] Ana Damon MD [address] [address] 02/11/2022 16:58:31 02/19/2022 16:14:54 Hypothyroidism 44147381 E03.8 Levothyrox ine was increased from 200 mcg qd to 225 mcg qd on 01/13 due to TSH of 12.24. Free T4 was WNL.Due for recheck of TSH and FT4 in a week or two. Adult fail ure to thrive syndrome 648007327 R62.7 Doesn't really have this dx anymore. Her wt. has been stable and her appetite is good.Leonora nue mirtazapin e 7.5 mg qhs.Monito r wts. Mixed anxi ety and depressive disorder 586790019 F41.8 Mood good today.Cont inue wellbutrin XL 150 mg qd and mirtazapin e 7.5 mg qhsMonitor mood.Psych following, may try a GDR. Edema 015512486 R60.0 Continue lasix 40 mg BID and metolazone 2.5 mg 2x/wk on & .Cont inue WILMA wraps qd.Monitor Chronic pancreatitis 235 132485 K86.1 Under good control on fentanyl patch 50 mcg q 3 days, prednisone 10 mg qd, and APAP 650 mg q 6 hrs prnMonitor . Generalize d osteoarthritis 599304301 M15.0 Pain control as above.Also diclofenac gel to shoulders BID and hands prn.Will add lidocaine patches to shoulders, low back and elbows as needed.PT/ OT as needed.Mon itor [id number] MIKIE DUONG [address] [place] [address] 02/25/2022 11:22:33 03/10/2022 20:26:15 Hypothyroidism 56390747 E03.8 levothyrox ine 225 mcgrecheck tsh-free T4 in 6 weeks Spinal roni nosis of lumbar region 68682228 M48.062 fentanyl patch 50 mcg q72 hourspredn isone 10 mg daily [id number] MIKIE DUONG [address] [place] [address] 03/28/2022 11:18:57 04/03/2022 10:05:40 Generalized osteoarthritis 855339610 M15.0 tramadol 25 mg q6hr prndiclofe nac gel to shoulders BID and hands prn.Will add lidocaine patches to shoulders, low back and elbows as needed.PT/ OT as needed.Mon itor Severe pain 96857861 R52 Under good control on fentanyl patch 50 mcg q 3 days,predn isone 10 mg qd,APAP 650 mg q4hr prnPT OT eval and treat prnMonitor [id number] MIKIE DUONG [place] [address] [place] [address] 5 04/04/2022 10:53:36 04/08/2022 15:25:03 Mixed anxiety and depressive disorder [id number] F41.8 Mood good today.well butrin XL 150 mg bidmirtaza pine 7.5 mg qhsMonitor mood.Consu lt psych prn Severe pain 81287080 R52 fentanyl patch 50 mcg q 3 days,predn isone 10 mg qd,APAP 1000 mg tidtramado l 25 mg bid prnPT OT eval and treat prnMonitor Edema 105168993 R60.0 lasix 40 mg BIDmetolaz one 2.5 mg 2x/wk on & , thursday.Con tinue wilma wraps daily.Carmela tor Hypokalemia 75617668 E87 .6 With borderline low K+ for awhile. Has never been on K+ supplement .Monitor Atrial fibrillation 4943 6004 I48.0 eliquis 5 mg bidlasix 40 mg bid dailymetol azone 2.5 mg , doan Gastroesop hageal reflux disease without esophagitis 668306437 K21.9 omeprazole 40 mg daily Hyperlipidemia 80432177 E78.49 monitor Hypothyroidism 78289452 E03.8 levothyrox ine 225 mcg daily Osteoarthritis 811839235 M15.0 fentanyl 50 mcg patch q72 hrAPAP 1000 mg tidtramado l 25 mg bid prnglucosa mine 500 mg tid Osteoporosis 75829632 M8 1.0 prednisone 10 mg daily Spinal roni nosis of lumbar region 79398811 M48.062 fentanyl patch 50 mcg q72 hourspredn isone 10 mg daily Fall W19.XXXA PT OT eval and treatfall precaution sfrequent safety checks Adult fail ure to thrive syndrome 883469876 R62.7 Doing much better. Wt. has been stable.Say s her appetite is good.gary zapine 7.5 mg qhs.Monito r wts. 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.0 tramadol 25 mg bid prndiclofe nac gel to shoulders BID and hands prn.Will add lidocaine patches to shoulders, low back and elbowsgluc osamine 500 mg bidtizanad ine 2 mg bidPT/OT as needed.Mon itor Severe pain 14781616 R52 fentanyl patch 50 mcg q 3 days,predn isone 10 mg qd,APAP 1000 mg tiddiclofe nac gel and lido patchestiz anidine 2 mg bidtramado l 25 mg bid prnPT OT eval and treat prnMonitor [id number] BRYANNA URBANO NP [address] [address] 05/07/2022 10:29:27 05/09/2022 15:20:45 Pancreatitis 55095644 K85.90 monitor for symptomsmo nitor labs Mixed anxi ety and depressive disorder 710493041 F41.8 Mood good today.well butrin XL 150 mg bidmirtaza pine 7.5 mg qhsMonitor mood.Consu lt psych prn Severe pain 30938352 R52 fentanyl patch 50 mcg q 3 days,predn isone 10 mg qd,APAP 1000 mg tidtramado l 25 mg bid prnPT OT eval and treat prnMonitor Edema 036290520 R60.0 lasix 40 mg BIDmetolaz one 2.5 mg 2x/wk on & , thursday.Con tinue wilma wraps daily.Carmela tor Hypokalemia 36750233 E87 .6 With borderline low K+ for awhile. Has never been on K+ supplement .Monitor Atrial fibrillation 4943 6004 I48.0 eliquis 5 mg bid-on hold due to buttock bruiselasi x 40 mg bid dailymetol azone 2.5 mg , , Gastroesop hageal reflux disease without esophagitis 951657024 K21.9 omeprazole 40 mg daily Hyperlipidemia 92046761 E78.49 monitor Hypothyroidism 53234231 E03.8 levothyrox ine 225 mcg daily Osteoarthritis 029293387 M15.0 fentanyl 50 mcg patch q72 hrAPAP 1000 mg tidtramado l 25 mg bid prnglucosa mine 500 mg tid Osteoporosis 71851100 M8 1.0 prednisone 10 mg daily Spinal roni nosis of lumbar region 21808931 M48.062 fentanyl patch 50 mcg q72 hourspredn isone 10 mg daily Fall W19.XXXA PT OT eval and treatfall precaution sfrequent safety checks Adult fail ure to thrive syndrome 765510960 R62.7 Doing much better. Wt. has been stable.Say s her appetite is good.gary zapine 7.5 mg qhs.Monito r wts. Generalize d osteoarthritis 428674995 M15.0 tramadol 25 mg bid prndiclofe nac gel to shoulders BID and hands prn.Will add lidocaine patches to shoulders, low back and elbowsgluc osamine 500 mg bidPT/OT as needed.Mon itor Contusion 965779919 T14. 8XXA monitor bruising for extension or lesseningh old eliquis [id number] Samina Wilburn MD [address] [address] 05/30/2022 07:35:26 06/04/2022 16:14:23 Chronic pain 43042991 G89.29 diclofenac gel 1% to shoulders bid, to both hands and spine prnfentany l patch 50 mcg q72 hsalonpas patch to right shoulder dailyAPAP 1000 mg tidtramado l 25 mg bidtizanid ine 2 mg bidprednis one 10 mg dailyPT/OT /PM&R prnwill monitor Mixed anxi ety and depressive disorder 212894841 F41.8 bupropion SR 150 mg dailymirta zapine 7.5 mg at hswill monitor Hypothyroidism 29457600 E03.8 levothyrox ine 225 mcg dailywill monitor Atrial fibrillation 4943 6004 I48.0 consider restart ACheld due to hematoma Type 2 russel betes mellitus 80680872 E11.9 insulin aspart per sliding scalewill monitor Edema 630416116 R60.0 furosemide 40 mg dailymetol azone 2.5 mg daily on T, Th, Sawill monitor Gastroesop hageal reflux disease without esophagitis 444574908 K21.9 omeprazole 40 mg bidwill monitor Recurrent pancreatitis 918040351 K86.1 fu GI prnlow fat dietwill monitor [id number] BRYANNA URBANO NP KAREEM HAYNES [address] [place] [address] 07/21/2022 10:43:42 08/01/2022 13:30:09 COVID-19 359830028 U07.1 07/20 covid positiveen courage po food and fluidscons ider ivf for anorexiaco nsider paxlovid or decadron for symptomsse nd to ED for decompensa tion [id number] BRYANNA URBANO NP [address] [address] 07/23/2022 11:28:07 08/01/2022 14:08:08 COVID-19 258843898 U07.1 07/20 covid positiveen courage po food and fluidscons ider ivf for anorexiaco nsider paxlovid or decadron for symptomsse nd to ED for decompensa tion Chronic pain 37836559 G8 9.29 diclofenac gel 1% to shoulders bid, to both hands and spine prnfentany l patch 50 mcg q72 hsalonpas patch to right shoulder dailyAPAP 1000 mg tidtramado l 25 mg bidtizanid ine 2 mg bidprednis one 10 mg dailyPT/OT /PM&R prnwill monitor Mixed anxi ety and depressive disorder 067642426 F41.8 bupropion SR 150 mg dailymirta zapine 7.5 mg at hswill monitor Hypothyroidism 69613661 E03.8 levothyrox ine 225 mcg dailywill monitor Atrial fibrillation 4943 6004 I48.0 eliquis 2.5 mg bidmonitor for any hematomas Type 2 russel betes mellitus 08066079 E11.9 insulin aspart per sliding scalewill monitor Edema 186554244 R60.0 furosemide 40 mg dailymetol azone 2.5 mg daily on T, Th, Sawill monitor Gastroesop hageal reflux disease without esophagitis 110352499 K21.9 omeprazole 40 mg bidwill monitor Recurrent pancreatitis 283523461 K86.1 fu GI prnlow fat dietwill monitor [id number] BRYANNA URBANO NP [address] [address] 07/25/2022 10:22:57 08/01/2022 15:15:29 COVID-19 909711643 U07.1 07/20 covid positiveen courage po food and fluidscons ider ivf for anorexiaco nsider paxlovid or decadron for symptomsse nd to ED for decompensa tion [id number] BRYANNA URBANO NP [address] [address] 07/30/2022 11:27:21 08/01/2022 15:57:11 COVID-19 012609057 U07.1 07/20 covid positive-a symptomati c, recovered by dateencour age po food and fluidscons ider ivf for anorexiaco nsider paxlovid or decadron for symptomsse nd to ED for decompensa tion [id number] BRYANNA URBANO NP [address] [address] 07/31/2022 12:15:38 08/05/2022 18:21:58 COVID-19 564503513 U07.1 07/20 covid positive-a symptomati c, recovered by dateencour age po food and fluidscons ider ivf for anorexiaco nsider paxlovid or decadron for symptomsse nd to ED for decompensa tionCXR ordered for 07/31 Pancreatitis 39672066 K8 5.90 monitor for symptomsmo nitor labs [id number] BRYANNA URBANO NP [address] [address] 08/01/2022 11:59:17 08/06/2022 08:14:07 COVID-19 628590291 U07.1 07/20 covid positive-a symptomati c, recovered by dateencour age po food and fluidscons ider ivf for anorexiaco nsider paxlovid or decadron for symptomsse nd to ED for decompensa tionCXR ordered for 07/31-negati ve for chf or pna [id number] MIKIE Dasilva [address] [facility] [place] [address] 08/09/2022 10:30:12 08/13/2022 13:00:41 COVID-19 951048813 U07.1 resolved- no new treatment in hospital documentof f isolation precaution scovid rapid negative in facility on 08/09/22 per nursingmon itor for sequelae note: 07/20 covid positive-a symptomati c, recovered by dateencour age po food and fluidscons ider ivf for anorexiaco nsider paxlovid or decadron for symptomsse nd to ED for decompensa tionCXR ordered for 07/31-negati ve for chf or pna Pancreatitis 09522042 K8 5.90 was treated with ivf, medication s, and pain adjuncts- now improvedmo nitor for symptomsav oid fatty foods on low fat dietmonito r labs Chronic pain 95704772 G8 9.29 contdiclof enac gel 1% to shoulders bid, to both hands and spine prnfentany l patch 50 mcg q72 hsalonpas patch to right shoulder dailyAPAP 1000 mg tidtramado l 25 mg bidtizanid ine 2 mg bidprednis one 10 mg dailyPT/OT for weakness and painwill monitor Recurrent pancreatitis 179886045 K86.1 fu GI prnlow fat dietwill monitor Dislocatio n of shoulder joint 365765083 S43.004A pt has right shoulder dislocatio ncontinue pain meds as belowsling and swath as toleratedp assive romPT/OTfu with Dr Velasquez outptmonit or for cms, pulses, disclorati on [id number] MIKIE DUONG [address] [facility] [place] [address] 08/11/2022 10:07:53 08/13/2022 13:35:33 Pancreatitis 96783845 K85.90 monitor for symptomsmo nitor labswas treated with ivf, medication s, and pain adjuncts- now improvedmo nitor for symptomsav oid fatty foods on low fat diet Dislocatio n of shoulder joint 060610120 S43.004A pt has chronic right shoulder dislocatio ncontinue pain medssling and swath as toleratedp assive romPT/OTfu with Dr Velasquez outptmonit or for cms, pulses, disclorati on [id number] MIKIE DUONG DALLAS [address] [place] [address] [place] [address] 08/25/2022 11:17:28 08/27/2022 14:05:17 Pancreatitis 86527384 K85.90 monitor for symptomsmo nitor labswas treated with ivf, medication s, and pain adjuncts- now improvedmo xifloxin 400 mg daily x4 daysmonito r for symptoms avoid fatty foods on low fat diet Dislocatio n of shoulder joint 536636190 S43.004A pt has chronic subluxatio n right shoulder dislocatio ncontinue pain meds as belowsling and swath as toleratedp assive romPT/OTfu with Dr Velasquez outptmonit or for cms, pulses, disclorati on Chronic pain 21997398 G8 9.29 contdiclof enac gel 1% to shoulders bid, to both hands and spine prnfentany l patch 50 mcg q72 hsalonpas patch to right shoulder dailyAPAP 1000 mg tidtramado l 25 mg bidtizanid ine 2 mg bidprednis one 10 mg dailyPT/OT for weakness and painwill monitor COVID-19 229288074 U07.1 resolved- no new treatment in hospital documentof f isolation precaution scovid rapid negative in facility on 08/09/22 per nursingmon itor for sequelae note: 07/20 covid positive-a symptomati c, recovered by dateencour age po food and fluidscons ider ivf for anorexiaco nsider paxlovid or decadron for symptomsse nd to ED for decompensa tionCXR ordered for 07/31-negati ve for chf or pna Recurrent pancreatitis 960933537 K86.1 f/u GI prnlow fat dietwill monitor [id number] BRYANNA URBANO NP KAREEM Denis [facility] [place] [id number] 09/04/2022 10:39:19 09/08/2022 15:11:55 Dislocation of shoulder joint 496201839 S43.004A pt has chronic subluxatio n right shoulder dislocatio ncontinue pain meds as belowsling and swath as tolerated for comfort prnPT/Edilson/ u with Dr Velasquez outptmonit or for cms, pulses, disclorati on Mixed anxi ety and depressive disorder 174801817 F41.8 bupropion SR 150 mg dailymirta zapine 7.5 mg at hswill monitor [id number] Samina Wilburn MD [address] [place] [address] 10/01/2022 10:06:00 10/03/2022 11:00:52 Atrial fibrillation 99571265 I48.0 apixaban 2.5 mg bidwill monitor Recurrent pancreatitis 283021936 K86.1 fu GIlow fat dietwill monitor Gastroesop hageal reflux disease without esophagitis 930328060 K21.9 omeprazole 40 mg bidwill monitor Type 2 russel betes mellitus 74955663 E11.9 insulin aspart per sliding scalewill monitor Chronic pain 58056723 G8 9.29 diclofenac gel 1% to shoulders bid, to both hands and spine prnfentany l patch 50 mcg q72 hsalonpas patch to right shoulder dailyAPAP 1000 mg tidtramado l 25 mg bidtizanid ine 2 mg bidprednis one 10 mg dailyPT/OT /PM&R prnwill monitor Peripheral edema 9576179 00 R60.0 metolazone 2.5 mg Tu, Th, Sufurosemi de 40 mg bidwill monitor Hypothyroidism 13902535 E03.8 levothyrox ine 225 mcg dailywill monitor Mixed anxi ety and depressive disorder 777740777 F41.8 bupropion SR 150 mg dailymirta zapine 7.5 mg at hstizanidi ne 2 mg bidwill monitor Essential hypertension 62379663 I10 metolazone 2.5 mg daily on , Th, Safurosemi de 40 mg bidwill monitor [id number] BRYANNA URBANO NP [address] [place] [address] 10/15/2022 14:06:21 10/20/2022 14:25:22 Atrial fibrillation 42819993 I48.0 apixaban 2.5 mg bidwill monitor Recurrent pancreatitis 155775076 K86.1 fu GIlow fat dietwill monitor Gastroesop hageal reflux disease without esophagitis 464163819 K21.9 omeprazole 40 mg bidwill monitor Type 2 russel betes mellitus 73731134 E11.9 insulin aspart per sliding scalewill monitor Chronic pain 30493898 G8 9.29 diclofenac gel 1% to shoulders bid, to both hands and spine prnfentany l patch 50 mcg q72 hsalonpas patch to right shoulder dailyAPAP 1000 mg tidtramado l 25 mg bidtizanid ine 2 mg bidprednis one 10 mg dailyPT/OT /PM&R prnwill monitor Peripheral edema 8153158 00 R60.0 metolazone 2.5 mg , , Sufurosemi de 40 mg bidwill monitor Hypothyroidism 90193687 E03.8 levothyrox ine 225 mcg dailywill monitor Mixed anxi ety and depressive disorder 572878216 F41.8 bupropion SR 150 mg dailymirta zapine 7.5 mg at hstizanidi ne 2 mg bidwill monitor Essential hypertension 15969535 I10 metolazone 2.5 mg daily on , , Safurosemi de 40 mg bidwill monitor [id number] MIKIE DUONG [address] [place] [address] 11/28/2022 13:21:24 12/03/2022 17:20:32 Atrial fibrillation 69877590 I48.0 apixaban 2.5 mg bidwill monitor Recurrent pancreatitis 810969039 K86.1 f/u GIlow fat dietwill monitor Gastroesop hageal reflux disease without esophagitis 919133618 K21.9 omeprazole 40 mg bidwill monitor Type 2 russel betes mellitus 89612172 E11.9 insulin aspart per sliding scalewill monitor Chronic pain 91079816 G8 9.29 diclofenac gel 1% to shoulders bid, to both hands and spine prnfentany l patch 50 mcg q72 hsalonpas patch to right shoulder dailyAPAP 1000 mg tidtramado l 25 mg bidtizanid ine 2 mg bidprednis one 10 mg dailyPT/OT /PM&R prnwill monitor Peripheral edema 9696792 00 R60.0 metolazone 2.5 mg , , Sufurosemi de 40 mg bidwill monitor Hypothyroidism 61692735 E03.8 levothyrox ine 225 mcg dailywill monitor Mixed anxi ety and depressive disorder 969860886 F41.8 bupropion SR 150 mg dailymirta zapine 7.5 mg at hstizanidi ne 2 mg bidwill monitor Essential hypertension 15207346 I10 metolazone 2.5 mg daily on , , Safurosemi de 40 mg bidwill monitor [id number] BRYANNA URBANO NP [address] [address] 01/14/2023 14:00:23 01/16/2023 15:25:27 Mixed anxiety and depressive disorder 555364489 F41.8 bupropion SR 150 mg dailymirta zapine 7.5 mg at hstizanidi ne 2 mg bidwill monitor Severe pain 87069706 R52 fentanyl patch 50 mcg q 3 days,predn isone 10 mg qd,APAP 1000 mg tidtramado l 25 mg bid prnPT OT eval and treat prnMonitor Fall W19.XXXA PT OT eval and treatfall precaution sfrequent safety checks [id number] Samina Wilburn MD [address] [address] 02/11/2023 10:06:26 02/13/2023 16:03:58 Mixed anxiety and depressive disorder 892444297 F41.8 bupropion SR 150 mg dailymirta zapine 7.5 mg at hswill monitor Atrial fibrillation 4943 6004 I48.0 apixaban 2.5 mg bidwill monitor Type 2 russel betes mellitus 55795042 E11.9 insulin aspart per sliding scalewill monitor Chronic pain 50961094 G8 9.29 diclofenac gel 1% to shoulders bid, to both hands and spine prnfentany l patch 50 mcg q72 hsalonpas patch to right shoulder dailyAPAP 1000 mg tidtramado l 25 mg bidtizanid ine 2 mg bidprednis one 10 mg dailyPT/OT /PM&R prnwill monitor Gastroesop hageal reflux disease without esophagitis 487084774 K21.9 omeprazole 40 mg bidwill monitor Hypothyroidism 51185856 E03.8 levothyrox ine 225 mcg dailywill monitor Edema 681485360 R60.0 furosemide 40 mg dailymetol azone 2.5 mg daily on T, , Sawill monitor [id number] Ana Damon MD [address] [place] [address] 03/20/2023 20:34:03 03/23/2023 14:49:16 Ecchymosis present 553834941 S80.02XA Probably bumped it and doesn't remember, no pain, so no tx needed.Mon itor for resolution and monitor for new ecchymoses . Nausea 668741097 R11.0 Mild, periodic and chronic.Wi ll start Zofran 4 mg q 6 hrs prnMonitor sxs. Chronic neck pain 157221 6343 107 M54.2 Already on multiple pain meds.Will start lidocaine patch to neck prn, pt. says it only hurts sometimes, so doesn't want it scheduled. Continue fentanyl patch 50 mcg q 72 hrs, APAP 1000 mg TID,tramad ol 25 mg BID,tizani dine 2 mg BID andprednis one 10 mg qd.Monitor sxs. [id number] BRYANNA URBANO NP [address] [place] [address] 04/03/2023 16:33:21 04/10/2023 09:59:49 Mixed anxiety and depressive disorder 241544447 F41.8 bupropion SR 150 mg dailymirta zapine 7.5 mg at hswill monitor Atrial fibrillation 4943 6004 I48.0 apixaban 2.5 mg bidwill monitor Type 2 russel betes mellitus 88963596 E11.9 insulin aspart per sliding scalewill monitor Chronic pain 79259166 G8 9.29 fentanyl patch 50 mcg q72 hsalonpas patch to right shoulder dailyAPAP 1000 mg tidtramado l 25 mg bidtizanid ine 2 mg bidprednis one 10 mg dailyPT/OT /PM&R prnwill monitor Gastroesop hageal reflux disease without esophagitis 598804006 K21.9 omeprazole 40 mg bidwill monitor Hypothyroidism 06207831 E03.8 levothyrox ine 225 mcg dailywill monitor Edema 552863287 R60.0 furosemide 40 mg dailymetol azone 2.5 mg daily on T, , Sawill monitor [id number] MD KAREEM Whitaker [address] [facility] [address] [place] [address] 05/29/2023 18:52:13 06/12/2023 13:46:31 Mixed anxiety and depressive disorder 419402874 F41.8 Mood good tonight.Co ntinue bupropion SR 150 mg qd and mirtazapin e 7.5 mg qhsMonitor mood.Psych follows Atrial fibrillation 4943 6004 I48.0 Rate in good control on no rate controllin g meds.Leonora nue eliquis 2.5 mg BID for AC.Monitor HR and bleeding risk. Type 2 russel betes mellitus 66219019 E11.9 Last HgA1C 7.6 in 03/2022.Sug ars in adequate control on diet control with occ. SSI.Monito r fingerstic ks TID, due for recheck of HgA1C, forgot to order. Chronic pain 40706668 G8 9. Will add diclofenac gel for hands BID.Contin ue fentanyl patch 50 mcg q 72 hrs, salonpas patch to right shoulder qd, APAP 1000 mg TID, tramadol 25 mg BID, tizanidine 2 mg BID, and prednisone 10 mg qd.Continu e rehab as able.Monit or sxs. Gastroesop hageal reflux disease without esophagitis 022127573 K21.9 No current sxs.Contin ue omeprazole 40 mg BID.Monito r sxs Hypothyroidism 64041964 E03.8 TSH WNL.Contin ue levothyrox ine 225 mcg qdMonitor TSH yearly. Edema 497778537 R60.0 At baseline.C ontinue furosemide 40 mg qd and metolazone 2.5 mg qd on T, , SaMonitor sxs. [id number] MIKIE DUONG [address] [facility] [address] [place] [address] 06/29/2023 12:07:31 07/07/2023 18:16:09 Fall 6616436 W19.XXXA PT OT eval and treatfall precaution sfrequent safety checks Contusion of face 558879 004 S00.83XA monitor neurosmoni tor for any signs of infectionm onitor for resolution of the bruising [id number] BRYANNA URBANO NP [address] [place] [address] 07/01/2023 12:23:08 07/07/2023 19:15:00 Contusion of face 143430853 S00.83XA monitor neurosmoni tor for any signs of infectionm onitor for resolution of the bruising Edema 306042240 R60.0 furosemide 40 mg dailymetol azone 2.5 mg daily on T, Th, Sawill monitor [id number] BRYANNA URBANO NP [address] [address] 07/24/2023 12:53:42 08/04/2023 13:25:11 Contusion of face 126909330 S00.83XA resolvedmo nitor neurosmoni tor for any signs of infectionm onitor for resolution of the bruising Edema 743228166 R60.0 furosemide 40 mg dailymetol azone 2.5 mg daily on T, Th, Sawill monitor Fall W19.XXXA PT OT eval and treatfall precaution sfrequent safety checks Mixed anxi ety and depressive disorder 000316925 F41.8 bupropion SR 150 mg dailymirta zapine 7.5 mg at hswill monitor Atrial fibrillation 4943 6004 I48.0 apixaban 2.5 mg bidwill monitor Type 2 russel betes mellitus 65550319 E11.9 insulin aspart per sliding scalewill monitor Chronic pain 58360620 G8 9.29 fentanyl patch 50 mcg q72 hsalonpas patch to right shoulder dailyAPAP 1000 mg tidtramado l 25 mg bidtizanid ine 2 mg bidprednis one 10 mg dailyPT/OT /PM&R prnwill monitor Gastroesop hageal reflux disease without esophagitis 684746702 K21.9 omeprazole 40 mg bidwill monitor Hypothyroidism 69292399 E03.8 levothyrox ine 225 mcg dailywill monitor [id number] NELDA MANSFIELD [address] [address] 09/03/2023 09:01:19 09/08/2023 15:59:59 Dry skin dermatitis 400456061 L85.3 see hpireports intermitte nt itchiness at timesfluid s encouraged Apply moisturize r to skin BIDhydorco rtisone cream TID prn 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 not appreciate d on examwarm salt water rinses QID prngood oral hygiene encourageb arcos teeth after mealschlor hexidine mouth wash qd and HS Toothache 90255348 K08.8 9 [id number] Samina Wilburn MD [address] [address] 09/23/2023 08:31:39 09/29/2023 10:26:59 Mixed anxiety and depressive disorder 258185639 F41.8 bupropion SR 150 mg dailymirta zapine 7.5 mg at hswill monitor Chronic pain 58127861 G8 9.29 diclofenac gel 1% to shoulders daily in eveningfen tanyl patch 50 mcg q72 hLidocaine patch to right shoulder and neck dailyAPAP 1000 mg tidtramado l 25 mg bidtizanid ine 2 mg bidprednis one 10 mg dailyPT/OT /PM&R prnwill monitor Atrial fibrillation 4943 6004 I48.0 apixaban 2.5 mg bidwill monitor Type 2 russel betes mellitus 60747891 E11.9 insulin aspart per sliding scalewill monitor Hypothyroidism 62130702 E03.8 levothyrox ine 225 mcg dailywill monitor Gastroesop hageal reflux disease without esophagitis 561792601 K21.9 omeprazole 40 mg bidwill monitor Edema 200276982 R60.0 furosemide 40 mg dailymetol azone 2.5 mg daily on T, , Sawill monitor Chronic dermatitis 65482 007 L20.89 d/c compressio n stockingst riamcinolo ne cream bidelevate d legswill monitor [id number] NELDA MANSFIELD [address] [address] 09/24/2023 08:15:25 10/01/2023 11:35:02 Fall 8734737 W19.XXXA see hpiPT/OT eval and tx per facility protocolmi nimize fall risknursin g to educate pt on making sure wheelchair is in lock position and front wheels are facing forward before getting up out of chair. Contusion 510069341 T14. 8XXA Patient hit her right almanza against bed frame when she fell forwardnot ed with mild tenderness on eliquismon itor right almanza bruise for healing [id number] NELDA MANSFIELD [address] [address] 10/13/2023 10:07:38 10/15/2023 15:15:36 Neuropathy 522152163 G62.9 bilateral lower extremity calf with tingling pain and tenderness she is not experience any pain relief with current pain medication spatient agrees to try gabapentin times one dose 100mg she will update nursing if she experience relief. Fatigue 42275625 R53.83 appears tirediron studies, tsh, t4, bmp and cbc, vit D and Vit B levels orderedwil l r/o UTI as well. Type 2 russel betes mellitus 89461210 E11.9 currently on lispro SSC will adjust coveragere cently added lantus 10 units10/12 increased lantus to 15 units Hypothyroidism 63456152 E03.8 levothyrox ine 225 mcg dailyord TSH, T4 for 10/13 [id number] NELDA MANSFIELD [address] [address] 10/19/2023 13:21:25 10/22/2023 12:31:39 Vitamin D deficiency 72894526 E55.9 VIt D level 22start cholecacif telly 1000 unit dailyreche ck Vitamin D level in 3-4 months Neuropathy 926298546 G62 .9 today she tells me that she has a postive effect with gabapentin and would like to continue, she has not had any pain.will scheduled gabapentin 100 mg BID Q12 Type 2 russel betes mellitus 84126561 E11.9 currently on lispro SSC will adjust coveragere cently added lantus 10 units19 increased lantus to 15 units3/25: FS have improved Hypothyroidism 49217324 E03.8 levothyrox ine 225 mcg dailyord TSH, T4 for 10/13 Pending Dry skin dermatitis 2600 96845 L85.3 posterior calf noted with red patchy areas that are dry and flakyrefus ed rx cream recommende d, prefer and has been using -goldbond creamuses her own with good effect per patient.wi monitor. [id number] NELDA MANSFIELD [address] [address] 10/30/2023 21:18:42 11/02/2023 15:19:50 Type 2 diabetes mellitus 93670611 E11.9 continue lispro SSCcontinu e lantus 15 unitsmonit or FS TID Hypothyroidism 99331942 E03.8 levothyrox ine decreased to 175 mcgTSH 0.1 T4 normal rangerepea t labs in 6 weeks Abdominal pain 02334164 R10.9 see hpicontinu e zofran prn for nauseaplan robin upcoming EGD. [id number] NELDA MANSFIELD [address] [address] 11/04/2023 10:45:41 11/16/2023 16:04:21 Type 2 diabetes mellitus 63347208 E11.9 continue lispro SSCcontinu e lantus 15 unitsmonit or FS TID Hypothyroidism 30526279 E03.8 levothyrox ine decreased to 175 mcgTSH 0.1 T4 normal rangerepea t labs in 6 weeks Abdominal pain 79135933 R10.9 see hpicontinu e zofran prn for nauseaEGD unremarkab le Urinary tr act infectious disease 65660640 N39.0 10/21: postive UAstart levofloxac in 250 mg for 5 daysstart probiotic 1 tab bid for 10 daysincrea se oral hydration. [id number] NELDA MANSFIELD [address] [address] 11/19/2023 10:42:12 11/27/2023 15:22:30 Type 2 diabetes mellitus 81773526 E11.9 continue lispro SSCcontinu e lantus 15 unitsmonit or FS TID Hypothyroidism 22512154 E03.8 levothyrox ine decreased to 175 mcgTSH 0.1 T4 normal rangerepea t labs in 6 weeks Abdominal pain 80895275 R10.9 see hpicontinu e zofran prn for nauseaEGD unremarkab le Urinary tr act infectious disease 29842540 N39.0 10/21: postive UAstart levofloxac in 250 mg for 5 daysstart probiotic 1 tab bid for 10 daysincrea se oral hydration. Mixed anxi ety and depressive disorder 307672231 F41.8 bupropion SR 150 mg dailymirta zapine 7.5 mg at hswill monitor Chronic pain 43473491 G8 9.29 diclofenac gel 1% to shoulders daily in eveningfen tanyl patch 50 mcg q72 hLidocaine patch to right shoulder and neck dailyAPAP 1000 mg tidtramado l 25 mg bidtizanid ine 4 mg bidprednis one 10 mg dailyPT/OT /PM&R prnwill monitor Atrial fibrillation 4943 6004 I48.0 continue apixaban 2.5 mg bid Gastroesop hageal reflux disease without esophagitis 200119070 K21.9 omeprazole 40 mg bidcontinu e zofran 4 mg q6 prn Edema 720712407 R60.0 continue furosemide 40 mg dailyconti nue metolazone 2.5 mg daily on , , Eczema 12219312 L30.9 triamcinol one 0.1 % cream BID Dyspnea 115653671 R06.00 continue albuterol inhaler prn for shortness of breath Osteoarthritis 833003512 M15.0 lidocaine patch right shoulder.f entanyl 50 mcg patch q72 hrAPAP 1000 mg tidtramado l 25 mg bid prnglucosa mine 500 mg tid Chronic neck pain 668685 7466 107 M54.2 continue gabapentin 100 mg BID Neuropathy 582520229 G62 .9 continue gabapentin 100 mg BID. 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 [id number] NELDA MANSFIELD [address] [facility] [place] [place] [address] 11/26/2023 18:58:29 12/01/2023 10:07:02 Pain of left heel 1031146185 389793 M79.672 skin prep to bilateral heels BIDoff load heels on pillow when in bedmonitor for worsening sx.Risk factor discussed diabetes ,immobilit y, age [id number] BRYAN BERNARDO, [employer] [address] [place] [address] 12/14/2023 08:12:26 12/17/2023 13:25:50 Eczema 60385542 L30.9 bilateral lower extremitie s rash with scattered patches dry and redhx chronic edema, there is potential for weeping/oo zingtriamc inolone 0.1 % cream BIDmoistur izes legs daily Pain in right heel 50269 03173 359971 M79.671 right heel red and boggywill add skin prep BIDoffload heels when in bedwear socks with shoes Neuropathy 815888175 G62 .9 reports increasing bilateral leg painwill increase gabapentin to 200 mg BID and re assess for inprovemen t. [id number] NELDA MANSFIELD [address] [place] [address] 01/12/2024 12:10:02 01/13/2024 16:55:18 Easy bruising 928539927 R58 reddish mid upper chest bruising, skin intactshe is noted with scattered bruising on shoulder as well.she takes eliquis and prednisone , diuretic dailywill continue to monitor.wi ll check iron studies and VIT D on next lab day. Hypothyroidism 52289026 E03.8 continue levothyrox ine 175 mcgTSH now 1.74contin ue to monitor. [id number] Ana Damon MD [address] [place] [address] 02/01/2024 21:46:09 02/17/2024 11:18:25 Chronic pain 06805012 G89.29 Remains at baseline.C ontinue fentanyl patch 50 mcg q 72 hrs, salonpas patch to right shoulder qd, APAP 1000 mg TID, tramadol 25 mg BID, tizanidine 2 mg BID, and prednisone 10 mg qd.Continu e rehab as able.Monit or sxs. Mixed anxi ety and depressive disorder 993721485 F41.8 Mood good tonight.Co ntinue bupropion SR 150 mg qd and mirtazapin e 7.5 mg qhsMonitor mood.Psych follows Atrial fibrillation 4945 6004 I48.0 Rate remains in good control on no rate controllin g meds.Leonora nue eliquis 2.5 mg BID for AC.Monitor HR and bleeding risk. 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 SSI.Monito r fingerstic ks TID, due for recheck of HgA1C, forgot to order. Gastroesop hageal reflux disease without esophagitis 792393029 K21.9 No current sxs.Contin ue omeprazole 40 mg BID.Monito r sxs Hypothyroidism 03031927 E03.8 TSH WNL.Contin ue levothyrox ine 225 mcg qdMonitor TSH yearly. Edema 318997217 R60.0 Marked tonight.Co ntinue furosemide 40 mg qd and metolazone 2.5 mg qd on , , SaMonitor sxs. Eczema 64224752 L30.9 Much improved.C ontinue triamcinol one 0.1 % cream BID and house moisturize r qdMonitor Neuropathy 910155819 G62 .89 Gabapentin was increased to 200 mg BID on 12/14/23Som e improvemen t since then.Leonora nue other pain meds as above also.Monit or. [id number] MIKIE SCALES [place] [address] [place] [address] [place] [address] 02/18/2024 11:02:37 02/20/2024 09:33:35 Edema 268917007 R60.0 Suspecting more may be going on, [...] nFurther work up as indicated Chronic pain 78983055 G8 9.29 Remains at baseline.C ontinue fentanyl patch 50 mcg q 72 hrs, salonpas patch to right shoulder qd, APAP 1000 mg TID, tramadol 25 mg BID, tizanidine 2 mg BID, and prednisone 10 mg qd.Continu e rehab as able.Monit or sxs. Mixed anxi ety and depressive disorder 387452306 F41.8 Mood goodContin ue bupropion SR 150 mg qd and mirtazapin e 7.5 mg qhsMonitor mood.Psych follows Atrial fibrillation 4943 6004 I48.0 Rate remains in good control on no rate controllin g meds.Leonora nue eliquis 2.5 mg BID for AC.Monitor HR and bleeding risk. Type 2 russel betes mellitus 69364444 E11.9 Last HgA1C 7.6 in 03/2022.Sug ars in adequate control on diet control with occ. SSI.Monito r fingerstic ks TID, due for recheck of HgA1C, forgot to order. Gastroesop hageal reflux disease without esophagitis 509588124 K21.9 No current sxs.Contin ue omeprazole 40 mg BID.Monito r sxs Hypothyroidism 42599611 E03.8 TSH WNL.Contin ue levothyrox ine 225 mcg qdMonitor TSH yearly. Eczema 18445367 L30.9 Much improved.C ontinue triamcinol one 0.1 % cream BID and house moisturize r qdMonitor Neuropathy 975341116 G62 .89 Gabapentin was increased to 200 mg BID on 12/14/23Som e improvemen t since then.Leonora nue other pain meds as above also.Monit or. Candidiasis of mouth 797 31829 B37.0 Aranda plaque on tongue.Voi ce hoarse, ? if also esophageal Nystatin Swish and swallow 5 ml qid x 30 daysMainta in oral hygeine, brush tongue Dental caries 34136830 K 02.9 Planning for teeth # 29 and 31 extraction s.Will hold clearance for now until fluid balance figured out.Will hold basaglar insulin the night before procedureW ill hold eliquis the day before and the day of procedureD oes not appear abx. proph. is warrantedC ardiac risk currently low for dental extraction s. Hypokalemia 48233160 E87 .6 K 3.1 on labs 02/16/24Pla n as above [id number] BRYAN BERNARDO, NELDA HAYNES [address] [place] [address] rd [place] [address] 02/23/2024 11:06:51 02/24/2024 15:45:14 Edema 413365618 R60.[address] xray did not show [...] restrictio nFurther work up as indicated Hypokalemia 01454909 E87 .6 02/21:Impro thomas 3.4continu e kcl 30 meq daily. Chronic pain 34832753 G8 9.29 Remains at baseline.C ontinue fentanyl patch 50 mcg q 72 hrs, salonpas patch to right shoulder qd, APAP 1000 mg TID, tramadol 25 mg BID, tizanidine 2 mg BID, and prednisone 10 mg qd.Continu e rehab as able.Monit or sxs. Mixed anxi ety and depressive disorder 427843308 F41.8 Mood goodContin ue bupropion SR 150 mg qd and mirtazapin e 7.5 mg qhsMonitor mood.Psych follows Atrial fibrillation 4943 6004 I48.0 Rate remains in good control on no rate controllin g meds.Leonora nue eliquis 2.5 mg BID for AC.Monitor HR and bleeding risk. Type 2 russel betes mellitus 27736909 E11.9 Last HgA1C 7.6 in 03/2022.Sug ars in adequate control on diet control with occ. SSI.Monito r fingerstic ks TID, due for recheck of HgA1C, forgot to order. Gastroesop hageal reflux disease without esophagitis 766179871 K21.9 No current sxs.Contin ue omeprazole 40 mg BID.Monito r sxs Hypothyroidism 49779981 E03.8 TSH WNL.Contin ue levothyrox ine 225 mcg qdMonitor TSH yearly. Eczema 01901416 L30.9 Much improved.C ontinue triamcinol one 0.1 % cream BID and house moisturize r qdMonitor Neuropathy 332382615 G62 .89 Gabapentin was increased to 200 mg BID on 12/14/23Som e improvemen t since then.Leonora nue other pain meds as above also.Monit or. Pneumonia 958011768 J18. 9 02/17: chest xray showed bilateral [...] rage fluid hydration. Vitamin D deficiency 347 25216 E55.9 12/06:Vit D level 20.4 - this is lower than previous levelwas taking cholecalci ferol 1000 unit daily -will increases to 50,000 unit weekly on thursday.patricia parkinson recheck in 2 months. [id number] BRYAN BERNARDO, [employer] [facility] [address] [place] [address] 02/25/2024 10:46:10 02/29/2024 16:18:54 Edema 592048218 R60.[address] xray did not show [...] restrictio nFurther work up as indicated Hypokalemia 44742029 E87 .6 02/21:Impro thomas 3.4continu e kcl 30 meq daily. Chronic pain 03361076 G8 9.29 Remains at baseline.C ontinue fentanyl patch 50 mcg q 72 hrs, salonpas patch to right shoulder qd, APAP 1000 mg TID, tramadol 25 mg BID, tizanidine 2 mg BID, and prednisone 10 mg qd.Continu e rehab as able.Monit or sxs. Mixed anxi ety and depressive disorder 118627766 F41.8 Mood goodContin ue bupropion SR 150 mg qd and mirtazapin e 7.5 mg qhsMonitor mood.Psych follows Atrial fibrillation 4943 6004 I48.0 Rate remains in good control on no rate controllin g meds.Leonora nue eliquis 2.5 mg BID for AC.Monitor HR and bleeding risk. Type 2 russel betes mellitus 89963727 E11.9 Last HgA1C 7.6 in 03/2022.Sug ars in adequate control on diet control with occ. SSI.Monito r fingerstic ks TID, due for recheck of HgA1C, forgot to order. Gastroesop hageal reflux disease without esophagitis 814737566 K21.9 No current sxs.Contin ue omeprazole 40 mg BID.Monito r sxs Hypothyroidism 59912216 E03.8 TSH WNL.Contin ue levothyrox ine 225 mcg qdMonitor TSH yearly. Eczema 36985272 L30.9 Much improved.C ontinue triamcinol one 0.1 % cream BID and house moisturize r qdMonitor Neuropathy 924260567 G62 .89 Gabapentin 200 mg BIDreports bilateral lower extremity pain- noted with swelling >in LLE than RLE-awaiti ng ultrasound to r/o DVT. due to be done today at 3 pmPt willing to try diclofenac gel for lower extremity to see it helps with pain. Pneumonia 347976196 J18. 9 02/17: chest xray showed bilateral [...] rage fluid hydration. Vitamin D deficiency 347 06426 E55.9 12/06:Vit D level 20.4 - this is lower than previous levelwas taking cholecalci ferol 1000 unit daily -will increases to 50,000 unit weekly on thursday.patricia l recheck in 2 months. [id number] NELDA MANSFIELD [address] [place] [address] 02/29/2024 18:11:58 03/01/2024 13:10:29 Pneumonia 690723771 J18.9 breathing is easy and unlabored: chest xray showed bilateral airspace opacities. No pleural effusion.c ontinue augmentin 500 mg TID until 03/04 and azithromyc in 500 mg for 1 day and then continue 250 mg for 4 days .check VS q shiftencou rage fluid hydration. [id number] NELDA MANSFIELD [address] [place] [address] 03/16/2024 10:26:05 03/18/2024 10:30:33 Pneumonia 300779269 J18.9 completed abxbreathi ng is easy and unlabored Mixed anxi ety and depressive disorder 713381400 F41.8 Mood is stable.Con tinue:bupr opion SR 150 mg qdmirtazap ine 7.5 mg qhs-03/14 seen by psych with recommenda tion for GDR for mirtazapin e now ordered at 5 mg hs. patient in agreement. Monitor mood. [id number] NELDA MANSFIELD [address] [place] [address] 03/23/2024 11:08:46 03/31/2024 14:26:29 Edema 555769221 R60.0 Marked tonight.Co ntinue furosemide 40 mg qd and metolazone 2.5 mg qd on T, Th, SaMonitor sxs. Chronic pain 54874019 G8 9.29 Remains at baseline.C ontinue fentanyl patch 50 mcg q 72 hrs, salonpas patch to right shoulder qd, APAP 1000 mg TID, tramadol 25 mg BID, tizanidine 2 mg BID, and prednisone 10 mg qd.Continu e rehab as able.Monit or sxs. Mixed anxi ety and depressive disorder 651081518 F41.8 Continue bupropion SR 150 mg qd and mirtazapin e 7.5 mg qhsMonitor mood.Psych follows Atrial fibrillation 4943 6004 I48.0 Continue eliquis 2.5 mg BID for AC.Monitor HR and bleeding risk. Type 2 russel betes mellitus 85572140 E11.9 continue lantus 15 units at HSmonitor FS Gastroesop hageal reflux disease without esophagitis 494420347 K21.9 No current sxs.Contin ue omeprazole 40 mg BID.Monito r sxs Hypothyroidism 40324909 E03.8 TSH WNL.Contin ue levothyrox ine 175 mcgMonitor TSH yearly. Eczema 43004420 L30.9 Much improved.C ontinue triamcinol one 0.1 % cream BID and house moisturize r qdMonitor Neuropathy 980842064 G62 .89 Gabapentin 200 mg BIDMonitor . Hypokalemia 79611342 E87 .6 continue kcl 30 meq daily. Vitamin D deficiency 347 00831 E55.9 12/06 Vit D level 20.4 - this is lower than previous levelwas taking cholecalci ferol 1000 unit daily-incr eased to 50,000 unit weekly on thursday.patricia parkinson recheck vit d level on next lab day. [id number] NELDA MANSFIELD [address] [place] [address] 03/29/2024 10:37:33 03/31/2024 14:35:20 Mixed anxiety and depressive disorder 036681588 F41.8 Mood is stable todayConti nue:buprop ion SR 150 mg qdwith trial gdr off mirtazapin e 7.5 mg qhs-decrea sed to 3.75 mgMonitor mood, patient will report unwanted side effects of gdr such as increased anxiety, restlessne ss, insomnia [id number] NELAD MANSFIELD [facility] [address] [place] [address] 04/26/2024 14:44:48 05/02/2024 13:49:37 Cellulitis of left lower limb 9459283982 5216278 L03.116 Met sepsis criteria due to 101.5 ? ? ?F, WBC 19.2recent ly started on Keflex for left lower extremity cellulitis on 04/15.CT chest without any focal findings of pneumonia. s/p iv van and zosyndisch arge on take Augmentin till 04/24/24 Extravasat ion of intravenous contrast medium 009679039 T80.818A In acute care found to have left arm swelling tx conservati vely with warm compress and elevation. Atrial fibrillation 4943 6004 I48.0 Continue eliquis 2.5 mg BID for AC.Monitor HR and bleeding risk. Hypothyroidism 77464865 E03.8 TSH WNL.Contin ue levothyrox ine 175 mcgMonitor TSH yearly. Gastroesop hageal reflux disease without esophagitis 722509175 K21.9 No current sxs.Contin ue omeprazole 40 mg BID.Monito r sxs Osteoarthritis 459386843 M15.0 lidocaine patch right shoulder.f entanyl 50 mcg patch q72 hrAPAP 1000 mg tidtramado l 25 mg bid prnglucosa mine 500 mg tid Type 2 russel betes mellitus 52368653 E11.9 continue lantus 15 units at [facility] FS [id number] NELDA MANSFIELD [address] [address] 05/02/2024 09:59:17 05/03/2024 11:50:42 Cellulitis of left lower limb 1800311144 1238527 L03.116 05/02: see hpiLLE edema and pain, [...] 04/24/24 Extravasat ion of intravenous contrast medium 960306466 T80.818A In acute care found to have left arm swelling tx conservati vely with warm compress and elevation. Atrial fibrillation 4943 6004 I48.0 Continue eliquis 2.5 mg BID for AC.Monitor HR and bleeding risk.repor table sx reviewed. Hypothyroidism 57514411 E03.8 TSH WNL.Contin ue levothyrox ine 175 mcgMonitor TSH yearly. Gastroesop hageal reflux disease without esophagitis 945772084 K21.9 No current sxs.Contin ue omeprazole 40 mg BID.Monito r sxs Osteoarthritis 434196306 M15.0 fentanyl 50 mcg patch q72 hrAPAP 1000 mg tidtramado l 25 mg bid prnglucosa mine 500 mg tid Type 2 russel betes mellitus 68888530 E11.9 continue lantus 15 units at [facility] [id number] NELDA MANSFIELD [address] [address] 05/05/2024 10:15:43 05/10/2024 15:49:53 Cellulitis of left lower limb 5308247357 1228928 L03.116 05/05: Ultrasound results reviewed, negative for [...] reviewed. Gastroesop hageal reflux disease without esophagitis 041491856 K21.9 stableNo current sxs.Contin ue omeprazole 40 mg BID.Monito r sxs Osteoarthritis 876068179 M15.0 stablefent anyl 50 mcg patch q72 hrAPAP 1000 mg tidtramado l 25 mg bid prn Type 2 russel betes mellitus 29355159 E11.9 continue lantus 15 units at [facility] FS [id number] NELDA MANSFIELD [address] [address] 05/09/2024 11:51:06 05/10/2024 16:10:25 Cellulitis of left lower limb 6617635022 1661453 L03.116 resolved Atrial fibrillation 4943 6004 I48.0 stable without sx.Continu e eliquis 2.5 mg BID for AC.Monitor HR and bleeding risk.repor table sx reviewed. Gastroesop hageal reflux disease without esophagitis 795687637 K21.9 stableNo current sxs.Contin ue omeprazole 40 mg BID.Monito r sxs Osteoarthritis 922317226 M15.0 stablefent anyl 50 mcg patch q72 hrAPAP 1000 mg tidtramado l 25 mg bid Type 2 russel betes mellitus 96698066 E11.9 continue lantus 15 units at HSmonitor FS- mainly under 200sshe is without hypo/hyper glucose sx. Edema 723749785 R60.0 BLE decreased edema note, she is wearing wilma wrapsconti nue torsemide 20 mg daily and metolazone as ord. [id number] NELDA MANSFIELD [facility] e [address] [place] [address] [place] [id number] 05/12/2024 11:47:54 05/13/2024 11:46:56 Atrial fibrillation 42952056 I48.0 stable without sx.Continu e eliquis 2.5 mg BID for AC.Monitor HR and bleeding risk.repor table sx reviewed. Gastroesop hageal reflux disease without esophagitis 494826178 K21.9 stableNo current sxs.Contin ue omeprazole 40 mg BID.Monito r sxs Osteoarthritis 686441774 M15.0 stablefent anyl 50 mcg patch q72 hrAPAP 1000 mg tidtramado l 25 mg bid Type 2 russel betes mellitus 02967739 E11.9 continue lantus 15 units at [facility] FS- mainly under 200sshe is without hypo/hyper glucose sx. Edema 930210513 R60.0 BLE decreased edema note, she is wearing wilma wrapsconti nue torsemide 20 mg daily and metolazone as ord. Spinal roni nosis of lumbar region 70039296 M48.062 fentanyl patch 50 mcgprednis one 10 mg daily - taper to start 05/16/24de creasing by 1 mg per week. [id number] NELDA MANSFIELD [address] [place] [address] 05/16/2024 08:25:38 05/18/2024 09:23:51 Atrial fibrillation 98102349 I48.0 stable without sx.Continu e eliquis 2.5 mg BID for AC.Monitor HR and bleeding risk.repor table sx reviewed. Gastroesop hageal reflux disease without esophagitis 528021790 K21.9 stableNo current sxs.Contin ue omeprazole 40 mg BID.Monito r sxs Osteoarthritis 128486939 M15.0 stablefent anyl 50 mcg patch q72 hrAPAP 1000 mg tidtramado l 25 mg bid Type 2 russel betes mellitus 55237794 E11.9 [facility]- mainly under 200sshe is without hypo/hyper glucose sx. Edema 832360285 R60.0 BLE decreased edema note, she is wearing wilma wrapsconti nue torsemide 20 mg daily and metolazone as ord. Spinal roni nosis of lumbar region 47409615 M48.062 fentanyl patch 50 mcgprednis one 10 mg daily - taper to start 05/16/24de creasing by 1 mg per week. Itching of skin 49704193 0 L29.9 left shoulder is without redness or rashencour aged to apply lotion dailywill start claritin 10 mg daily. [id number] NELDA MANSFIELD [place] [address] [place] [address] 05/19/2024 11:11:15 05/23/2024 15:12:03 Atrial fibrillation 50287718 I48.0 stable without sx.Continu e eliquis 2.5 mg BID for AC.Monitor HR and bleeding risk.repor table sx reviewed. Gastroesop hageal reflux disease without esophagitis 560085952 K21.9 stableNo current sxs.Contin ue omeprazole 40 mg BID.Monito r sxs Osteoarthritis 383496564 M15.0 stablefent anyl 50 mcg patch q72 hrAPAP 1000 mg tidtramado l 25 mg bid Type 2 russel betes mellitus 22646836 E11.9 [facility]- mainly under 200sshe is without hypo/hyper glucose sx. Edema 039932823 R60.0 BLE decreased edema note, she is wearing wilma wrapsconti nue torsemide 20 mg daily and metolazone as ord. Spinal roni nosis of lumbar region 81651861 M48.062 fentanyl patch 50 mcgprednis one 10 mg daily - taper to start 05/16/24de creasing by 1 mg per week. Itching of skin 36770967 0 L29.9 left shoulder is without redness or rashencour aged to apply lotion dailywill start claritin 10 mg daily. [id number] NELDA MANSFIELD [address] [place] [address] 05/23/2024 07:53:51 05/24/2024 13:52:57 Atrial fibrillation 79776179 I48.0 stable without sx.Continu e eliquis 2.5 mg BID for AC.Monitor HR and bleeding risk.repor table sx reviewed. Gastroesop hageal reflux disease without esophagitis 941743492 K21.9 stableNo current sxs.Contin ue omeprazole 40 mg BID.Monito r sxs Osteoarthritis 513045310 M15.0 stablefent anyl 50 mcg patch q72 hrAPAP 1000 mg tidtramado l 25 mg bid Type 2 russel betes mellitus 03891594 E11.9 continue lantus 15 units at [facility]- mainly under 200sshe is without hypo/hyper glucose sx. Edema 345300962 R60.0 BLE decreased edema note, she is wearing wilma wrapsconti nue torsemide 20 mg daily and metolazone as ord. Spinal roni nosis of lumbar region 92009251 M48.062 fentanyl patch 50 mcgprednis one 10 mg daily - taper to start 05/16/24de creasing by 1 mg per week. Itching of skin 99233272 0 L29.9 left shoulder is without redness or rashencour aged to apply lotion dailywill start claritin 10 mg daily. [id number] NELDA MANSFIELD [address] [place] [address] 05/27/2024 07:54:05 05/30/2024 13:39:41 Atrial fibrillation 33216368 I48.0 stable without sx.Continu e eliquis 2.5 mg BID for AC.Monitor HR and bleeding risk.repor table sx reviewed. Gastroesop hageal reflux disease without esophagitis 981443989 K21.9 stableNo current sxs.Contin ue omeprazole 40 mg BID.Monito r sxs Osteoarthritis 728033628 M15.0 stablefent anyl 50 mcg patch q72 hrAPAP 1000 mg tidtramado l 25 mg bid Type 2 russel betes mellitus 11866886 E11.9 continue lantus 15 units at [facility]- mainly under 200sshe is without hypo/hyper glucose sxwill need updated A1c as we taper off prednisone Edema 165051585 R60.0 improved with compressio n stockings. continue torsemide 20 mg daily and metolazone as ord. Spinal roni nosis of lumbar region 69038837 M48.062 fentanyl patch 50 mcgprednis one 10 mg daily - tapering off 1 mg per weekdecrea sing by 1 mg per week. Itching of skin 71301675 0 L29.9 stableleft shoulder is without redness or rashencour aged to apply lotion dailywill start claritin 10 mg daily. [id number] NELDA MANSFIELD [place] [address] [place] [address] [place] [address] 06/02/2024 09:27:55 06/06/2024 12:53:38 Atrial fibrillation 20829231 I48.0 stable without sx.Continu e eliquis 2.5 mg BID for AC.Monitor HR and bleeding risk.repor table sx reviewed. Gastroesop hageal reflux disease without esophagitis 020054941 K21.9 reports hypogastri c non radiating pain+ nausea no vomitinNo current sxs.Contin ue omeprazole 40 mg BID.Monito r sxs Osteoarthritis 732082281 M15.0 stablefent anyl 50 mcg patch q72 hrAPAP 1000 mg tidtramado l 25 mg bid Type 2 russel betes mellitus 25354722 E11.9 stablecont inue lantus 15 units at [facility] FS- mainly under 200sshe is without hypo/hyper glucose sx Edema 563167255 R60.0 improved with compressio n stockings. continue torsemide 20 mg daily and metolazone as ord. Blister of lower leg without infection 62199188 S80.822A initially fluid filled with clear liquidnow burst-anais ent recently tx for cellulitis , I prefer wound to be tx with and antispetic nursing ord to cleanse with NS 0r warm soap and water dialy, paint with betadine with non adhesive dressing and kerlix. [id number] BRYAN BERNARDO, [address] [address] 06/06/2024 08:41:07 06/07/2024 11:48:57 Atrial fibrillation [id number] I48.0 stable without sx.Continu e eliquis 2.5 mg BID for AC.Monitor HR and bleeding risk.repor table sx reviewed. Gastroesop hageal reflux disease without esophagitis [id number] K21.9 No current sxs.Contin ue omeprazole 40 mg BID.Monito r sxs Osteoarthritis [id number] M15.0 stablefent anyl 50 mcg patch q72 hrAPAP 1000 mg tidtramado l 25 mg bid Type 2 russel betes mellitus 43072836 E11.9 stablecont inue lantus 15 units at [facility] FS- mainly under 200sshe is without hypo/hyper glucose sx Edema 956520156 R60.0 continue torsemide 20 mg daily and metolazone as ord. Blister of lower leg without infection 95570038 S80.822A initially fluid filled with clear liquidnow burst-anais ent recently tx for cellulitis , I prefer wound to be tx with and antispetic as well.adriani asia ord to cleanse with NS 0r warm soap and water dialy, paint with betadine cover with xeroform dressing and kerlix. [id number] BRYAN BERNARDO [address] [address] 06/16/2024 11:11:20 06/21/2024 11:07:01 Edema 549965211 R60.0 continue torsemide 20 mg daily and metolazone as ord. Blister of lower leg without infection 42360278 S80.822A initially fluid filled with clear liquidnow [...] recs to continue current tx ords. Dysuria 69226288 R30.0 send urine for UA with C&Swater encouraged to flush out toxins Fatigue 43701930 R53.83 recheck bmp, cbc, TSH,iron , ammonia and Vit B & D levels on 06/17 [id number] NELDA MANSFIELD [address] [place] [address] 06/27/2024 12:04:26 06/30/2024 11:21:08 Cellulitis of right lower limb [id number] L03.115 2/2 diabetes and decreased skin integrity from venous stasis and chronic prednisone usetx with IV ancef in acute carecomple cassie po abx keflex on 06/24follo wed by Wound MD Venous ins ufficiency of leg 767526361 I87.2 chronic BLE edema/RLE acute DVT /right almanza erupted skin blisterdis cussed with nursing, continue eliquis and wound tx with xeroform Acute deep venous thrombosis of femoral vein 2635760781 62089 I82.419 non occlusive/ RLEon eliquis 5 mg BID Chronic heart failure 48 621215 I50.9 acute on chronic/el evated BNP tx with IV lasixCXR showed interstiti al markings but difficult to interpret due to underlying fibrosisco ntinue torsemide and metolazone monitor labs Edema 156858637 R60.0 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 Wound 884781964 T14.90 XA see pi2/2 to erupted blisterfol lowed by wound MD with recent changes to oil emulsion.shelbie kelly provided why tx was changedwil l resume previous tx order of NS and betadine per patient request and have wound re evaldiscus sed with nursing [id number] NELDA MANSFIELD [address] [place] [phone] 07/04/2024 10:17:37 07/05/2024 14:29:23 Venous insufficiency of leg 329528326 I87.2 stablechro gavin BLE edema/RLE acute DVT /right almanza erupted skin blisterdis cussed with nursing, continue eliquis and wound tx Acute deep venous thrombosis of femoral vein 8375128367 39207 I82.419 non occlusive/ RLEon eliquis 5 mg BID Chronic heart failure 48 795314 I50.9 acute on chronic/el evated BNP tx with IV lasixCXR showed interstiti al markings but difficult to interpret due to underlying fibrosisco ntinue torsemide and metolazone baseline crackles with hx of pulm. fibrosismo nitor labs Edema 925921853 R60.0 chronic/st abl;e with no increase on exam todayconsi jeff referral to lymphedema clinic - she often c/o pain, she is at increase risk for recurrent infection. Wound 347194041 T14.90 XA see pi2/2 to erupted blisterfol lowed by wound with recent changes to oil emulsion.shelbie kelly provided why tx was changedwil l resume previous tx order of NS and betadine per patient request and have wound re evaldiscus sed with nursing [id number] NELDA MANSFIELD [address] [place] [phone] 07/07/2024 08:16:53 07/08/2024 13:27:39 Venous insufficiency of leg 272179619 I87.2 stablechro gavin BLE edema/RLE acute DVT /right almanza erupted skin blisterdis cussed with nursing, continue eliquis and wound txseen by wound with new order changes made in pcc. Acute deep venous thrombosis of femoral vein 8719029120 53426 I82.419 non occlusive/ RLEon eliquis 5 mg BID Chronic heart failure 48 393198 I50.9 continue torsemide and metolazone baseline crackles with hx of pulm. fibrosismo nitor labs Edema 686213044 R60.0 chronic/st ableconsid er referral to lymphedema clinic - she often c/o pain, she is at increase risk for recurrent infection. [id number] NELDA MANSFIELD [address] [phone] 07/11/2024 10:40:35 07/12/2024 12:07:39 Venous insufficiency of leg 210900823 I87.2 stablechro gavin BLE edema/RLE acute DVT /right almanza erupted skin blisterdis cussed with nursing, continue eliquis and wound txfollowed by wound /continu e current tx orders. Acute deep venous thrombosis of femoral vein 6749218423 28475 I82.419 non occlusive/ RLEon eliquis 5 mg BID Chronic heart failure 48 415094 I50.9 baseline BLE edema, otherwise no worsening edema notedconti nue torsemide and metolazone baseline crackles with hx of pulm. fibrosismo nitor labs Edema 373556042 R60.0 chronic/st ableconsid er referral to lymphedema clinic - she often c/o pain, she is at increase risk for recurrent infection. 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 Mood is stable todayConti nue:buprop ion [...] Member ID Guarantor Name 07/07/2024 2 [place] [facility] [place] Alcaraz [id number] Dallas Alcaraz 07/07/2024 1 MEDICARE B-[place]: [facility] [place] Alcaraz [id number] Dallas Alcaraz 07/11/2024 2 [place] [facility] [place] Alcaraz [id number] Dallas Alcaraz 07/11/2024 1 MEDICARE B-[place]: [facility] [place] Alcaraz [id number] Dallas Alcaraz 07/15/2024 2 [place] [facility] Dallas Alcaraz [id number] Dallas Alcaraz 07/15/2024 1 MEDICARE B-[place]: [facility] Dallas Alcaraz [id number] Dallas Alcaraz 07/18/2024 2 [place]: [facility] [place] Alcaraz [id number] Dallas Alcaraz 07/18/2024 1 MEDICARE B-[place]: [employer] Dallas Alcaraz [id number] Dallas Alcaraz 07/21/2024 2 [place]: [facility] Dallas Alcaraz [id number] Dallas Alcaraz 07/21/2024 1 MEDICARE B-ID: [facility] Dallas Alcaraz [id number] Dallas Alcaraz Notes Date Note Type Note [...] and history of PE NELDA MANSFIELD [address] [facility], [address], [place], [address], [employer] 07/07/2024 15:22:09 07/11/2024 text/html [place] is an [...] and history of PE NELDA MANSFIELD [address] [facility], [address], [place], [address], [employer] 07/11/2024 14:31:09 07/15/2024 text/html This is an 84 yr old women seen for acute rounding visit, she is reporting dysuria for a few days and states sx are similar to past UTI complaints. she denies any frequency or urgency, she has been afebrile. NELDA MANSFIELD [address] [facility], [address], [place], [address], [employer] 07/15/2024 12:35:05 07/18/2024 text/html This is an 84 yr old women seen for acute rounding visit for follow for dysuria. Recent UA negative for infection, pt updated on results, she now reports that she is no longer experiencing sx.she encouraged to increase fluid preferably water. NELDA MANSFIELD [address] [facility], [address], [place], [address], [facility] [employer] 07/18/2024 12:28:32 07/21/2024 text/html This is an 84 yr old women seen for acute rounding visit. She has been at baseline in [facility], today she is doing ok, there are no acute concerns. 07/21/24 Tested negative for covid NELDA MANSFIELD [address] [facility], [address], [place], [address], [facility] [employer] 07/21/2024 15:46:48 OBGyn Episode No OBEpisode recorded.
[2024-12-23 16:18] LABS: Appearance Urine Clear; Color Urine Yellow; Glucose Urine UA Negative (Negative); Leukocyte Esterase Urine Trace (Negative); Nitrite Urine Negative (Negative); Specific Gravity - Urine 1.015 (1.005-1.025); UMIC TRIGGER UA YES; Urine Blood Negative (Negative); Urine Ketones Negative (Negative); Urine Protein Negative (Neg-Trace)
[2024-12-23 16:39] LABS: Bacteria Urine None Seen (None Seen); Hyaline Casts Urine 0-2 /LPF (0-2); RBC Urine 0-2 /HPF (0-2)
== END 2024-12-23 16:01 | disposition home or self-care (01) ==
LOC: HO.MMNH3L 16:00
PROVIDERS: PCP Family Medicine; Visit Provider Student in an Organized Health Care Education/Training Program
DX: K21.9 Gastro-esophageal reflux disease without esophagitis (principal); E11.9 Type 2 diabetes mellitus without complications; I10 Essential (primary) hypertension
CPT/HCPCS: 81001; 87086

== ENCOUNTER 2024-12-27 05:25 | Outpatient (REF) | payer MEDICARE, MEDICAID, SELFPAY ==
[2024-12-27 05:27] LABS: MANUAL DIFF FLAG NO
[2024-12-27 05:49] LABS: Basophils Percent Auto 0.6 % (0-2); Eosinophils Absolute Auto 0.2 X10*3/uL (0.0-0.4); Eosinophils Percent Auto 3.7 % (0-4); Hematocrit 31.6 % (37.0-47.0); Hemoglobin 9.9 g/dl (12.0-16.0); Imm Gran Abs Auto 0.03 X10*3/uL (0.00-0.03); Imm Gran Pct Auto 0.5 % (0.0-0.4); Lymphocytes Absolute Auto 1.8 X10*3/uL (1.2-4.9); Lymphocytes Percent Auto 27.3 % (20-40); Mean Corpuscular HGB Conc 31.3 g/dl (31.0-35.0); Mean Corpuscular Hemoglobin 30.7 pg (27.0-33.0); Mean Corpuscular Volume 98.1 fL (80.0-98.0); Mean Platelet Volume 9.9 fL (9.4-12.3); Monocytes Absolute Auto 0.9 X10*3/uL (0.1-1.2); Monocytes Percent Auto 13.3 % (2-11); Neutrophils Absolute Auto 3.6 x10*3/uL (2.0-8.3); Neutrophils Percent Auto 54.6 % (45-73); Platelet Count 224 X10*3/uL (160-400); Red Blood Count 3.22 X10*6/uL (4.20-5.50); Red Cell Distribution Width 14.4 % (11.0-16.0); White Blood Count 6.6 X10*3/uL (4.8-10.8)
[2024-12-27 06:04] LABS: Alanine Aminotransferase 11 U/L (0-31); Albumin Level 3.1 g/dL (3.5-5.0); Alkaline Phosphatase 73 U/L (39-117); Anion Gap 12 (12-20); Aspartate Amino Transferase 21 U/L (5-31); Bilirubin Total 0.4 mg/dL (0.0-1.0); Blood Urea Nitrogen 20 mg/dL (9-16); Calcium 8.8 mg/dL (8.4-10.2); Carbon Dioxide 27 mmol/L (22-29); Chloride 103 mmol/L (96-108); Estimated Glomerular Filt Rate 51; Glucose Random 89 mg/dL (60-115); Potassium 4.2 mmol/L (3.3-5.1); Sodium 138 mmol/L (135-145)
[2024-12-27 06:22] LABS: Erythrocyte Sedimentation Rate 40 MM/HR (0-20)
== END 2024-12-27 05:26 | disposition home or self-care (01) ==
LOC: HO.MMNH3L 05:25
PROVIDERS: Visit Provider Student in an Organized Health Care Education/Training Program
DX: K21.9 Gastro-esophageal reflux disease without esophagitis (principal); E11.9 Type 2 diabetes mellitus without complications; I10 Essential (primary) hypertension
CPT/HCPCS: 36415; 80053; 85025; 85652

== ENCOUNTER 2025-01-23 07:46 | Outpatient (REF) | payer MEDICARE, MEDICAID, SELFPAY ==
[2025-01-23 06:32] LABS: MANUAL DIFF FLAG NO
[2025-01-23 06:56] LABS: Basophils Absolute Auto 0.1 X10*3/uL (0.0-0.2); Basophils Percent Auto 0.5 % (0-2); Eosinophils Absolute Auto 0.2 X10*3/uL (0.0-0.4); Eosinophils Percent Auto 1.6 % (0-4); Hematocrit 40.7 % (37.0-47.0); Hemoglobin 12.9 g/dl (12.0-16.0); Imm Gran Abs Auto 0.11 X10*3/uL (0.00-0.03); Imm Gran Pct Auto 0.9 % (0.0-0.4); Lymphocytes Absolute Auto 2.4 X10*3/uL (1.2-4.9); Mean Corpuscular HGB Conc 31.7 g/dl (31.0-35.0); Mean Corpuscular Hemoglobin 31.3 pg (27.0-33.0); Mean Corpuscular Volume 98.8 fL (80.0-98.0); Mean Platelet Volume 9.8 fL (9.4-12.3); Monocytes Absolute Auto 1.1 X10*3/uL (0.1-1.2); Monocytes Percent Auto 8.8 % (2-11); Neutrophils Absolute Auto 8.6 x10*3/uL (2.0-8.3); Neutrophils Percent Auto 69.2 % (45-73); Platelet Count 276 X10*3/uL (160-400); Red Blood Count 4.12 X10*6/uL (4.20-5.50); Red Cell Distribution Width 14.3 % (11.0-16.0); White Blood Count 12.4 X10*3/uL (4.8-10.8)
[2025-01-23 07:33] LABS: Anion Gap 16 (12-20); Blood Urea Nitrogen 40 mg/dL (9-16); Calcium 9.4 mg/dL (8.4-10.2); Carbon Dioxide 31 mmol/L (22-29); Chloride 97 mmol/L (96-108); Estimated Glomerular Filt Rate 40; Glucose Random 138 mg/dL (60-115); Potassium 3.2 mmol/L (3.3-5.1); Sodium 141 mmol/L (135-145)
--- OUTSIDE RECORDS SUMMARY | 2025-01-23 07:50 | XMS_ITS | Data Portability ---
Author Organization [facility], Main Office Address [address] [facility], [address] [place] [address] Care Team Providers Care Industry Consultant Name Role Phone KAREEM HAYNES 3RD FLOOR OTHER Assessment Encounter Date [...] Address Organization Details Recorded Time Severe pain 12134028 Active 2021 back pain BRYANNA URBANO NP [address] [facility], [address], [place], [address], [facility] 2 13:15:21 Adult failure to thrive syndrome 205489407 Active 2021 BRYANNA URBANO, MIKIE [address] [facility], [address], [place], [address], [facility] 2 13:15:35 Fall Active 2021 BRYANNA URBANO NP [address], [address], [place], [address], [facility] 2 13:15:44 Gastroes ophageal reflux disease without esophagi tis 416492738 Active 2021 BRYANNA URBANO NP [address] [facility], [address], [place], [address], [facility] 2 13:16:01 Osteoart hritis 495219627 Active 2021 BRYANNA URBANO NP [address] [facility], [address], [place], [address], [facility] 2 13:16:10 Mixed anxiety and depressi ve disorder 759159958 Active 2021 BRYANNA URBANO NP [address] [facility], [address], [place], [address], [facility] 3 10:40:32 Hypothyr oidism 90848891 Active 2021 BRYANNA URBANO NP [address] [facility], [address], [place], [address], [facility] 2 13:16:28 Osteopor osis 85209602 Active 2021 BRYANNA URBANO NP [address], [address], [place], [address], [facility] 2 13:17:10 Atrial fibrilla tion 46375548 Active 2021 BRYANNA URBANO, MIKIE [address], [address], [place], [address], [facility] 2 14:21:30 Hyperlip idemia 09605735 Active 2021 BRYANNA VELAPIN, SALES REPRESENTATIVE [employer] [address], [address], [place], [address], [facility] 2 14:21:52 Spinal stenosis of lumbar region 46030009 Active 2021 Ana Damon MD [address], [address], [place], [address], [facility] 2 19:13:30 Edema 197185224 Active 2021 BRYANNA YOLIE, SALES REPRESENTATIVE [employer] [address], [address], [place], [address], [facility] 2 13:22:11 Hypokale doretha 45218671 Active 2021 Ana Damon MD [address], [address], [place], [address], [facility] 2 23:44:02 Pancreat itis 35765238 Active 2021 BRYANNA URBANO, SALES REPRESENTATIVE [employer] [address] [facility], [address], [place], [address], [facility] 2 14:58:02 Generali zed osteoart hritis 563428011 Active 2021 Ana Damon MD [address] [facility], [address], [place], [address], [facility] 2 14:42:49 Contusio n 567640956 Active 2021 right buttock BRYANNA YOLIE, SALES REPRESENTATIVE [employer] [address] [facility], [address], [place], [address], [facility] 3 12:37:52 COVID-19 916757743 Active 2021 BRYANNA YOLIE, SALES REPRESENTATIVE [employer] [address], [address], [place], [address], [facility] 2 10:44:44 Dislocat ion of shoulder joint 785386750 Active 2022 Margarette Awad NP [address], [address], [place], [address], [facility] 3 11:28:04 Chronic neck pain 55533509911 07 Active 2022 Ana Damon MD [address], [address], [place], [address], [facility] 3 21:36:27 Nausea 693435266 Active 2022 Ana Damon MD [address], [address], [place], [address], [facility] 3 21:36:31 Type 2 diabetes mellitus 82326586 Active 2022 Ana Damon MD [address], [address], [place], [address], [facility] 3 20:16:36 Contusio n of face 925680930 Active 2022 BRYANNA URBANO NP [address], [address], [place], [address], [facility] 3 12:37:45 Urinary tract infectio us disease 17937623 Active 2023 NELDA MANSFIELD [address], [address], [place], [address], [facility] 4 14:59:19 Dyspnea 299086760 Active 2023 NELDA MANSFIELD [address], [address], [place], [address], [facility] 4 22:03:33 Neuropat hy 115887070 Active 2023 NELDA MANSFIELD [address], [address], [place], [address], [facility] 4 22:17:58 Constipa tion 81806881 Active 2023 NELDA MANSFIELD [address], [address], [place], [address], [facility] 4 22:22:39 Chronic pain 12840215 Active 2023 Ana Damon MD [address], [address], [place], [address], [facility] 4 10:49:48 Cellulit is 629594790 Active 2023 NELDA MANSFIELD [address] [facility], [address], [place], [address], [facility] 4 09:09:15 Manav contreras 53120231 Completed 202306/06/2024 on predniso ne 10 mg daily NELDA MANSFIELD [address] [place] [address], [address], [place], [address], [facility] 4 15:48:25 Venous insuffic iency of leg 742767513 Active 2023 NELDA MANSFIELD [address] [place] [address], [address], [place], [address], [facility] 4 02:16:11 Chronic heart failure 94613856 Active 2023 NELDA MANSFIELD [address] [place] [address], [address], [place], [address], [facility] 4 02:24:16 Problem Notes None recorded. Medical Equipment None Reported. Allergies Allergen ID Allergen Name Allergen Category Reaction Reaction Severity Criticality Documentation Date Start Date Code Code System Note Provider Name and Address Organization Details Recorded Time 20580 amitripty line medicatio n Not available Not available Not available 09/25/2021 704 RxNorm BRYANNA YOLIE, MIKIE [address] [place] [address], [address], [place], [address], [facility] 2 13:14:24 62051 morphine medicatio n Not available Not available Not available 09/25/2021 7052 RxNorm BRYANNA YOLIE, SALES REPRESENTATIVE [employer] [address] [facility], [address], [place], [address], [facility] 2 13:14:30 26079 oxycodone medicatio n Not available Not available Not available 09/25/2021 7804 RxNorm BRYANNA YOLIE, MIKIE [address] [facility], [address], [place], [address], [facility] 2 13:14:37 85400 Demerol medicatio n Not available Not available Not available 09/25/2021 71706 1 RxNorm BRYANNA YOLIE, SALES REPRESENTATIVE [employer] [address], [address], [place], [address], [facility] 2 13:14:42 74233 Phenergan medicatio n Not available Not available Not available 09/25/2021 02912 8 RxNorm BRYANNA GRIPPIN, SALES REPRESENTATIVE [employer] [address], [address], [place], [address], [facility] 2 13:14:50 03568 lactose food,medi cation Not available Not available Not available 09/25/2021 6211 RxNorm BRYANNA YOLIE, SALES REPRESENTATIVE [employer] [address] [facility], [address], [place], [address], [facility] 2 13:14:59 Medications Name Sig Start [...] DateTime 07/07/2024 162.56 cm NELDA MANSFIELD [address] [facility], [address], [place], [address], [facility] 07/07/2024 08:58:12 Date Recorded Body height Provider Name an d Address Organization Details Last Updated DateTime 07/11/2024 162.56 cm NELDA MANSFIELD [address] [facility], [address], [place], [address], [facility] 07/11/2024 14:23:34 Date Recorded Body height Heart rate Oxygen saturation Oxygen saturation in Arterial blood by Pulse oximetry Provider Name and Address Organization Details Last Updated DateTime 07/21/2024 162.56 cm 78 /min 95 % 95 % NELDA MANSFIELD [address] [facility], [address], [place], [address] , [facility] 07/21/2024 15:42:40 Social History Question Answer Notes LastModified by Organizat ion Details LastModified Time Tobacco Smoking Status Former Smoker can't remember when she quit Ana Damon MD [address] [facility], [address], [place], [place], [address], [facility] 09/26/2021 19:09:18 Do You Have An Advance Directive? Yes Information not available 09/26/2021 What Is Your Code Status? DNR/DNI Information not available 09/25/2021 Where Do You Live? [facility]. Was Living With Son, But He Is Not Home During The Day. Information not available 05/29/2023 Legal Guardian? No Informati on not available 09/26/2021 Do You Have A Medical Power Of Guide Dog Trainer? Yes Invoked Information not available 09/26/2021 What [...] adjuvanted, quadrivalent, PF 05/21/2022 completed Dena maza, [facility] 08/17/2023 10:49:52 Influenza, adjuvanted, quadrivalent, PF 03/04/2023 completed Dena maza [facility] 08/17/2023 10:50:06 Past Encounters Encounter ID Performer Location Encounter Start Date Encounter Closed Date Diagnosis/Indication Diagnosis SNOMED-CT Code Diagnosis ICD10 Code Diagnosis Note [id number] BRYANNA URBANO NP [address] [address] 09/25/2021 09:13:56 09/30/2021 13:45:49 Severe pain 12556703 R52 fentanyl patch 50 mcgdilaudi d 1 mg q4hr prnprednis one 10 mg dailyrepos ition prnhospice consult and admission Osteoporosis 69487050 M8 1.0 methotrexa te 2.5 dronate 70 thursdaypred nisone 10 mg daily Osteoarthritis 437326552 M19.90 dilaudid 1 mg q4 hr prnfentany l 50 mcg patch Mixed anxi ety and depressive disorder 725554985 F41.8 wellbutrin xl 150 mg bid Hypothyroidism 41083935 E03.9 levothyrox ine 200 mcg daily Gastroesop hageal reflux disease without esophagitis 658247144 K21.9 omeprazole 40 mg daily Adult fail ure to thrive syndrome 364172990 R62.7 encourage po intake Fall W19.XXXA PT OT eval and treatfall precaution sfrequent safety checks Atrial fibrillation 4943 6004 I48.91 eliquis 5 mg bidlasix 40 mg daily Hyperlipidemia 09622044 E78.5 atorvastat in 40 mg daily [id number] Ana Damon MD [address] [place] [address] 09/26/2021 15:54:36 09/30/2021 14:03:56 Osteoporosis 36013130 M81.0 Will d/c alendronat e Osteoarthritis 615378986 M15.0 Unclear what she is on MTX for, if it's OA or pulmonary fibrosis.C ontinue methotrexa te 2.5 mg weekly.Chelsi n control as above. Mixed anxi ety and depressive disorder 930122099 F41.8 Continue wellbutrin xl 150 mg BID.Monito r mood. Hypothyroidism 82758569 E03.8 With elevated TSH, but nl FT4. Will leave dosing as is for now, bayron. since pt is transition ing to hospice.Co ntinue levothyrox ine 200 mcg qd.No further labs. Gastroesop hageal reflux disease without esophagitis 871947262 K21.9 Continue omeprazole 40 mg qd.Monitor sxs/ Adult fail ure to thrive syndrome 070559383 R62.7 Continue oral supplement s as able. fall W19.XXXA Unable to participat e in rehab.Cont infall precaution s.Monitor for safety. Atrial fibrillation 4943 6004 I48.0 Rate in good control on no rate controllin g meds.Leonora nue eliquis 5 mg BID for AC.Monitor HR and bleeding risk Hyperlipidemia 66460132 E78.49 Will d/c atorvastat inNo further labs Spinal roni nosis of lumbar region 59940537 M48.062 With continued distress, unclear how much is pain and how much is behavioral .Will start roxanol 5 mg q 4 hrs scheduled and q 1 hr prn. Hold for oversedati on.Continu e fentanyl patch 50 mcg q 72 hrs and dilaudid 1 mg q 4 hrs prnContinu e prednisone 10 mg qd.Hospice consult pending. [id number] MIKIE DUONG [address] [place] [address] 09/27/2021 10:49:34 09/30/2021 14:31:05 Mixed anxiety and depressive disorder 972376436 F41.8 wellbutrin xl 150 mg bid-pm dose is 50 mg a week decrease until donethen remeron can be startedris perdal 0.5 mg bidAIMs 0 Adult fail ure to thrive syndrome 319592074 R62.7 encourage po intakereme sonal 7.5 mg [id number] MIKIE DUONG [address] [place] [address] 09/30/2021 12:53:54 10/04/2021 13:57:38 Mixed anxiety and depressive disorder 185357715 F41.8 wellbutrin xl 150 mg bid-pm dose is 100 mg decrease for 7 days then discontinu ishan remeron can be startedris perdal 0.5 mg bid-decrea sed to 0.25 mg am, 0.5 mg hsAIMs 0 Adult fail ure to thrive syndrome 923554202 R62.7 encourage po intakereme sonal 7.5 mg hs when hs wellbutrin finished Spinal roni nosis of lumbar region 55663012 M48.062 fentanyl patch 50 mcg q72 daysdilaud id 1 mg q4hr prnprednis on 10 mg daily [id number] MD KAREEM Whitaker [address] [place] [address] 10/01/2021 19:18:36 10/04/2021 14:59:14 Spinal stenosis of lumbar region 31492040 M48.062 Continue fentanyl patch 50 mcg q 72 hrs and dilaudid 1 mg q 4 hrs prnContinu e prednisone 10 mg qd.Reconsi jeff hospice consult if pt. not able to tolerate med changes as below. Mixed anxi ety and depressive disorder 964165035 F41.8 Continue Wellbutrin 150 mg qAM and PM dose 100 mg until 10/08 then d/c pm doseStart mirtazapin e 7.5 mg qhs on 10/08Contin ue risperdal 0.25 mg qam and 0.5 mg qhsMonitor effect. Adult fail ure to thrive syndrome 160482701 R62.7 encourage po intakeStar t remeron 7.5 mg hs when hs wellbutrin finished as above. [id number] MIKIE DUONG [place] [address] [place] [address] 10/03/2021 10:04:53 10/09/2021 15:41:28 Adult failure to thrive syndrome 867431090 R62.7 encourage po intakereme sonal 7.5 mg hs when hs wellbutrin finished 10/08 Mixed anxi ety and depressive disorder 486779493 F41.8 wellbutrin xl 150 mg bid-pm dose is 100 mg decrease for 7 days then discontinu e 10/08then remeron can be startedris perdal 0.5 mg bid-decrea sed to 0.25 mg am, 0.5 mg hsAIMs 0 Severe pain 94291199 R52 fentanyl patch 50 mcgdilaudi d 1 mg q4hr prn-d/c due to lack of useprednis one 10 mg dailyrepos ition prnhospice consult and admissionr oxanol was d/c due to morphine allergy [id number] BRYANNA URBANO NP [address] [address] 10/09/2021 10:18:53 10/14/2021 14:25:24 Mixed anxiety and depressive disorder 802109455 F41.8 wellbutrin xl 150 mg bid-pm dose is 100 mg decrease for 7 days then discontinu e 10/08then remeron can be startedris perdal 0.5 mg hs-am dose d/cAIMs 0 Adult fail ure to thrive syndrome 811487362 R62.7 encourage po intakereme sonal 7.5 mg hs when hs wellbutrin finished 10/08 Severe pain 80934154 R52 fentanyl patch 50 mcgdilaudi d 1 mg q4hr prn-d/c due to lack of useprednis one 10 mg dailyrepos ition prnhospice consult and admissionr oxanol was d/c due to morphine allergy [id number] BRYANNA URBANO NP [address] [address] 10/11/2021 10:22:56 10/14/2021 15:05:22 Mixed anxiety and depressive disorder 389624958 F41.8 wellbutrin xl 150 mg bid-pm dose is 100 mg decrease for 7 days then discontinu e 10/08then remeron can be startedris perdal 0.5 mg hs-am dose d/cAIMs 0 Adult fail ure to thrive syndrome 173859743 R62.7 encourage po intakereme sonal 7.5 mg hs when hs wellbutrin finished 10/08 Severe pain 30219370 R52 fentanyl patch 50 mcgdilaudi d 1 mg q4hr prn-d/c due to lack of useprednis one 10 mg dailyrepos ition prnhospice consult and admissionr oxanol was d/c due to morphine allergy [id number] BRYANNA URBANO NP [address] [address] 10/14/2021 12:20:18 10/16/2021 14:26:14 Severe pain 20013416 R52 fentanyl patch 50 mcgprednis one 10 mg dailyrepos ition prnroxanol was d/c due to morphine allergy Mixed anxi ety and depressive disorder 456413294 F41.8 wellbutrin xl 150 mgremeron 7.5 mg dailyrispe rdal 0.5 mg hs-am dose d/cAIMs 0 Fall W19.XXXA PT OT eval and treatfall precaution sfrequent safety checks [id number] BRYANNA URBANO NP [address] [address] 10/16/2021 13:18:48 10/23/2021 10:49:11 Adult failure to thrive syndrome 019904234 R62.7 encourage po intakereme sonal 7.5 mg hs when hs wellbutrin finished 10/08 Mixed anxi ety and depressive disorder 957249917 F41.8 wellbutrin xl 150 mgremeron 7.5 mg dailyrispe rdal 0.5 mg hs-am dose d/cAIMs 0 Severe pain 77971802 R52 fentanyl patch 50 mcgprednis one 10 mg dailyrepos ition prnroxanol was d/c due to morphine allergy Edema 306826620 R60.9 lasix 40 mg daily will increase to bid for 7 days [id number] NELDA Gardiner [address] [address] 10/18/2021 11:22:25 10/23/2021 11:24:28 Adult failure to thrive syndrome 973408360 R62.7 Appetite improveden courage po intakereme sonal 7.5 mg QHSMonitor weights Mixed anxi ety and depressive disorder 391908422 F41.8 wellbutrin xl 150 mgremeron 7.5 mg dailyrispe rdal 0.5 mg hsMonitor moodPsych eval prn Severe pain 38806705 R52 fentanyl patch 50 mcgprednis one 10 mg dailyBack pain now well controlled Monitor Edema 010631427 R60.9 Lasix 40 mg BIDACE wraps BLEElevate legs as toleratedM onitor [id number] BRYANNA URBANO NP [address] [address] 10/21/2021 10:50:08 10/23/2021 11:52:29 Edema 570371868 R60.9 lasix 40 mg bidmetolaz one 2.5 mg tues, thursace wraps Severe pain 02929369 R52 fentanyl patch 50 mcgprednis one 10 mg dailyrepos ition prnroxanol was d/c due to morphine allergy [id number] BRYANNA URBANO NP [address] [address] 10/24/2021 10:43:36 10/29/2021 12:14:04 Edema 871493206 R60.9 lasix 40 mg bidmetolaz one 2.5 mg tues, thurs, add a dose sundayace wraps Adult fail ure to thrive syndrome 092236368 R62.7 encourage po intakereme sonal 7.5 mg hs Mixed anxi ety and depressive disorder 468409997 F41.8 wellbutrin xl 150 mgremeron 7.5 mg dailyrispe rdal 0.5 mg hs- decrease hs dose to 0.25 mgAIMs 0 [id number] BRYANNA URBANO NP [address] [address] 10/30/2021 10:59:13 11/05/2021 10:01:44 Adult failure to thrive syndrome 992761744 R62.7 encourage po intakereme sonal 7.5 mg hs Mixed anxi ety and depressive disorder 570169531 F41.8 wellbutrin xl 150 mgremeron 7.5 mg dailyrispe rdal 0.25 mg- discontinu eAIMs 0 Severe pain 49482639 R52 fentanyl patch 50 mcgprednis one 10 mg dailyrepos ition prnroxanol was d/c due to morphine allergy [id number] Ana Damon MD [address] [address] 11/19/2021 18:25:18 11/25/2021 15:04:26 Adult failure to thrive syndrome 773829458 R62.7 Doing much better. Wt. has been stable.Say s her appetite is good.Leonora nue mirtazapin e 7.5 mg qhs.Monito r wts. Mixed anxi ety and depressive disorder 034728747 F41.8 Mood good today.Cont inue wellbutrin XL 150 mg qd and mirtazapin e 7.5 mg qhsMonitor mood.Consu lt psych prn Severe pain 10029322 R52 Under good control on fentanyl patch 50 mcg q 3 days, prednisone 10 mg qd, and APAP prnRestart ing PT this week.Monit ro Edema 610662486 R60.0 Continue lasix 40 mg BID and metolazone 2.5 mg 2x/wk on & .Cont inue wilma wraps daily.Carmela tor Hypokalemia 28398931 E87 .6 With borderline low K+ for awhile. Has never been on K+ supplement .Will recheck next week and if still low will add KCL 10 meq qd.Monitor [id number] MIKIE DUONG [address] [place] [address] [place] [address] 12/12/2021 10:09:42 12/17/2021 16:08:08 Adult failure to thrive syndrome 413021496 R62.7 Doing much better. Wt. has been stable.Say s her appetite is good.Leonora nue mirtazapin e 7.5 mg qhs.Monito r wts. Mixed anxi ety and depressive disorder 816868516 F41.8 Mood good today.well butrin XL 150 mg qd and mirtazapin e 7.5 mg qhsMonitor mood.Consu lt psych prn Severe pain 78595865 R52 Under good control on fentanyl patch 50 mcg q 3 days, prednisone 10 mg qd, and APAP prnRestart ing PT this week.Monit ro Edema 295261968 R60.0 lasix 40 mg BIDmetolaz one 2.5 mg 2x/wk on & .Cont inue wilma wraps daily.Carmela tor Hypokalemia 96565295 E87 .6 With borderline low K+ for awhile. Has never been on K+ supplement .Will recheck next week and if still low will add KCL 10 meq qd.Monitor Atrial fibrillation 4943 6004 I48.0 eliquis 5 mg bidlasix 40 mg bid daily Gastroesop hageal reflux disease without esophagitis 107939739 K21.9 omeprazole 40 mg daily Hyperlipidemia 70186306 E78.49 atorvastat in 40 mg daily Hypothyroidism 30159406 E03.8 levothyrox ine 200 mcg daily Osteoarthritis 271322212 M15.0 fentanyl 50 mcg patch q72 hr Osteoporosis 33452127 M8 1.0 methotrexa te 2.5 dronate 70 thursdaypred nisone 10 mg daily Spinal roni nosis of lumbar region 29615065 M48.062 fentanyl patch 50 mcg q72 hourspredn isone 10 mg daily Fall W19.XXXA PT OT eval and treatfall precaution sfrequent safety checks [id number] MIKIE DUONG [place] [address] [place] [address] rd [place] [address] 01/03/2022 14:55:57 01/06/2022 20:46:48 Pancreatitis 89404864 K85.90 monitor for symptomsmo nitor labs Adult fail ure to thrive syndrome 228464720 R62.7 Doing much better. Wt. has been stable.Say s her appetite is good.gary zapine 7.5 mg qhs.Monito r wts. Mixed anxi ety and depressive disorder 665973988 F41.8 Mood good today.well butrin XL 150 mg bidmirtaza pine 7.5 mg qhsMonitor mood.Consu lt psych prn Severe pain 06418671 R52 Under good control on fentanyl patch 50 mcg q 3 days,predn isone 10 mg qd,APAP 650 mg q4hr prnPT OT eval and treat prnMonitor Edema 130288329 R60.0 lasix 40 mg BIDmetolaz one 2.5 mg 2x/wk on & , thursday.Con tinue wilma wraps daily.Carmela tor Hypokalemia 45424515 E87 .6 With borderline low K+ for awhile. Has never been on K+ supplement .Monitor Atrial fibrillation 4943 6004 I48.0 eliquis 5 mg bidlasix 40 mg bid dailymetol azone 2.5 mg , , Gastroesop hageal reflux disease without esophagitis 094914432 K21.9 omeprazole 40 mg daily Hyperlipidemia 66717015 E78.49 atorvastat in 40 mg daily Hypothyroidism 73056098 E03.8 levothyrox ine 200 mcg daily Osteoarthritis 286701086 M15.0 fentanyl 50 mcg patch q72 hr Osteoporosis 91771037 M8 1.0 prednisone 10 mg daily Spinal roni nosis of lumbar region 30865623 M48.062 fentanyl patch 50 mcg q72 hourspredn isone 10 mg daily Fall W19.XXXA PT OT eval and treatfall precaution sfrequent safety checks [id number] BRYANNA URBANO NP [address] [address] 01/06/2022 10:28:02 01/09/2022 13:18:55 Edema 737151381 R60.0 lasix 40 mg BIDmetolaz one 2.5 mg 2x/wk on thursday.Con tinue wilma wraps daily.Carmela tor Pancreatitis 64417200 K8 5.90 monitor for symptomsmo nitor labs [id number] BRYANNA URBANO NP [address] [address] 01/08/2022 12:46:02 01/10/2022 16:30:00 Edema 848256752 R60.0 lasix 40 mg BIDmetolaz one 2.5 mg 2x/wk on thursday.Con tinue wilma wraps daily-comp ression stockingsM onitor Pancreatitis 25254958 K8 5.90 monitor for symptomsmo nitor labs [id number] BRYANNA URBANO NP [address] [address] 01/10/2022 11:53:05 01/14/2022 12:50:34 Hypothyroidism 89620348 E03.8 levothyrox ine 200 mcg daily-incr ease to 225 mcgrecheck tsh-free T4 in 6 weeks [id number] Ana Damon MD [address] [address] 02/11/2022 16:58:31 02/19/2022 16:14:54 Hypothyroidism 80695161 E03.8 Levothyrox ine was increased from 200 mcg qd to 225 mcg qd on 01/13 due to TSH of 12.24. Free T4 was WNL.Due for recheck of TSH and FT4 in a week or two. Adult fail ure to thrive syndrome 242420266 R62.7 Doesn't really have this dx anymore. Her wt. has been stable and her appetite is good.Leonora nue mirtazapin e 7.5 mg qhs.Monito r wts. Mixed anxi ety and depressive disorder 205717179 F41.8 Mood good today.Cont inue wellbutrin XL 150 mg qd and mirtazapin e 7.5 mg qhsMonitor mood.Psych following, may try a GDR. Edema 962625333 R60.0 Continue lasix 40 mg BID and metolazone 2.5 mg 2x/wk on & .Cont inue WILMA wraps qd.Monitor Chronic pancreatitis 235 280159 K86.1 Under good control on fentanyl patch 50 mcg q 3 days, prednisone 10 mg qd, and APAP 650 mg q 6 hrs prnMonitor . Generalize d osteoarthritis 494526712 M15.0 Pain control as above.Also diclofenac gel to shoulders BID and hands prn.Will add lidocaine patches to shoulders, low back and elbows as needed.PT/ OT as needed.Mon itor [id number] MIKIE DUONG [address] [address] 02/25/2022 11:22:33 03/10/2022 20:26:15 Hypothyroidism 26130892 E03.8 levothyrox ine 225 mcgrecheck tsh-free T4 in 6 weeks Spinal roni nosis of lumbar region 08716700 M48.062 fentanyl patch 50 mcg q72 hourspredn isone 10 mg daily [id number] MIKIE DUONG [place] [address] [place] [address] 03/28/2022 11:18:57 04/03/2022 10:05:40 Generalized osteoarthritis 771863706 M15.0 tramadol 25 mg q6hr prndiclofe nac gel to shoulders BID and hands prn.Will add lidocaine patches to shoulders, low back and elbows as needed.PT/ OT as needed.Mon itor Severe pain 02322221 R52 Under good control on fentanyl patch 50 mcg q 3 days,predn isone 10 mg qd,APAP 650 mg q4hr prnPT OT eval and treat prnMonitor [id number] BRYANNA URBANO, MIKIE [address] [place] [address] 04/04/2022 10:53:36 04/08/2022 15:25:03 Mixed anxiety and depressive disorder [id number] F41.8 Mood good today.well butrin XL 150 mg bidmirtaza pine 7.5 mg qhsMonitor mood.Consu lt psych prn Severe pain 59641996 R52 fentanyl patch 50 mcg q 3 days,predn isone 10 mg qd,APAP 1000 mg tidtramado l 25 mg bid prnPT OT eval and treat prnMonitor Edema 163589152 R60.0 lasix 40 mg BIDmetolaz one 2.5 mg 2x/wk on & , thursday.Con tinue wilma wraps daily.Carmela tor Hypokalemia 62377384 E87 .6 With borderline low K+ for awhile. Has never been on K+ supplement .Monitor Atrial fibrillation 4943 6004 I48.0 eliquis 5 mg bidlasix 40 mg bid dailymetol azone 2.5 mg , doan Gastroesop hageal reflux disease without esophagitis 085964300 K21.9 omeprazole 40 mg daily Hyperlipidemia 09889875 E78.49 monitor Hypothyroidism 43201636 E03.8 levothyrox ine 225 mcg daily Osteoarthritis 241822471 M15.0 fentanyl 50 mcg patch q72 hrAPAP 1000 mg tidtramado l 25 mg bid prnglucosa mine 500 mg tid Osteoporosis 96976823 M8 1.0 prednisone 10 mg daily Spinal roni nosis of lumbar region 64299681 M48.062 fentanyl patch 50 mcg q72 hourspredn isone 10 mg daily Fall W19.XXXA PT OT eval and treatfall precaution sfrequent safety checks Adult fail ure to thrive syndrome 496600133 R62.7 Doing much better. Wt. has been stable.Say s her appetite is good.gary zapine 7.5 mg qhs.Monito r wts. 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 M15.0 tramadol 25 mg bid prndiclofe nac gel to shoulders BID and hands prn.Will add lidocaine patches to shoulders, low back and elbowsgluc osamine 500 mg bidtizanad ine 2 mg bidPT/OT as needed.Mon itor Severe pain 41079965 R52 fentanyl patch 50 mcg q 3 days,predn isone 10 mg qd,APAP 1000 mg tiddiclofe nac gel and lido patchestiz anidine 2 mg bidtramado l 25 mg bid prnPT OT eval and treat prnMonitor [id number] BRYANNA URBANO NP [address] [address] 05/07/2022 10:29:27 05/09/2022 15:20:45 Pancreatitis 98830539 K85.90 monitor for symptomsmo nitor labs Mixed anxi ety and depressive disorder 985457401 F41.8 Mood good today.well butrin XL 150 mg bidmirtaza pine 7.5 mg qhsMonitor mood.Consu lt psych prn Severe pain 96766762 R52 fentanyl patch 50 mcg q 3 days,predn isone 10 mg qd,APAP 1000 mg tidtramado l 25 mg bid prnPT OT eval and treat prnMonitor Edema 994814197 R60.0 lasix 40 mg BIDmetolaz one 2.5 mg 2x/wk on & , thursday.Con tinue wilma wraps daily.Carmela tor Hypokalemia 84219431 E87 .6 With borderline low K+ for awhile. Has never been on K+ supplement .Monitor Atrial fibrillation 4943 6004 I48.0 eliquis 5 mg bid-on hold due to buttock bruiselasi x 40 mg bid dailymetol azone 2.5 mg , Gastroesop hageal reflux disease without esophagitis 495268097 K21.9 omeprazole 40 mg daily Hyperlipidemia 58585347 E78.49 monitor Hypothyroidism 74283037 E03.8 levothyrox ine 225 mcg daily Osteoarthritis 008332760 M15.0 fentanyl 50 mcg patch q72 hrAPAP 1000 mg tidtramado l 25 mg bid prnglucosa mine 500 mg tid Osteoporosis 59007645 M8 1.0 prednisone 10 mg daily Spinal roni nosis of lumbar region 98973041 M48.062 fentanyl patch 50 mcg q72 hourspredn isone 10 mg daily Fall W19.XXXA PT OT eval and treatfall precaution sfrequent safety checks Adult fail ure to thrive syndrome 756291160 R62.7 Doing much better. Wt. has been stable.Say s her appetite is good.gary zapine 7.5 mg qhs.Monito r wts. Generalize d osteoarthritis 856319797 M15.0 tramadol 25 mg bid prndiclofe nac gel to shoulders BID and hands prn.Will add lidocaine patches to shoulders, low back and elbowsgluc osamine 500 mg bidPT/OT as needed.Mon itor Contusion 172244294 T14. 8XXA monitor bruising for extension or lesseningh old eliquis [id number] Samina Wilburn MD [address] [address] 05/30/2022 07:35:26 06/04/2022 16:14:23 Chronic pain 79842738 G89.29 diclofenac gel 1% to shoulders bid, to both hands and spine prnfentany l patch 50 mcg q72 hsalonpas patch to right shoulder dailyAPAP 1000 mg tidtramado l 25 mg bidtizanid ine 2 mg bidprednis one 10 mg dailyPT/OT /PM&R prnwill monitor Mixed anxi ety and depressive disorder 351177794 F41.8 bupropion SR 150 mg dailymirta zapine 7.5 mg at hswill monitor Hypothyroidism 82492805 E03.8 levothyrox ine 225 mcg dailywill monitor Atrial fibrillation 4943 6004 I48.0 consider restart ACheld due to hematoma Type 2 russel betes mellitus 21959247 E11.9 insulin aspart per sliding scalewill monitor Edema 983688039 R60.0 furosemide 40 mg dailymetol azone 2.5 mg daily on T, Th, Sawill monitor Gastroesop hageal reflux disease without esophagitis 347317061 K21.9 omeprazole 40 mg bidwill monitor Recurrent pancreatitis 516642169 K86.1 fu GI prnlow fat dietwill monitor [id number] BRYANNA URBANO NP [address] [address] 07/21/2022 10:43:42 08/01/2022 13:30:09 COVID-19 180978602 U07.1 07/20 covid positiveen courage po food and fluidscons ider ivf for anorexiaco nsider paxlovid or decadron for symptomsse nd to ED for decompensa tion [id number] BRYANNA URBANO NP [address] [address] 07/23/2022 11:28:07 08/01/2022 14:08:08 COVID-19 841438022 U07.1 07/20 covid positiveen courage po food and fluidscons ider ivf for anorexiaco nsider paxlovid or decadron for symptomsse nd to ED for decompensa tion Chronic pain 12726649 G8 9.29 diclofenac gel 1% to shoulders bid, to both hands and spine prnfentany l patch 50 mcg q72 hsalonpas patch to right shoulder dailyAPAP 1000 mg tidtramado l 25 mg bidtizanid ine 2 mg bidprednis one 10 mg dailyPT/OT /PM&R prnwill monitor Mixed anxi ety and depressive disorder 290396640 F41.8 bupropion SR 150 mg dailymirta zapine 7.5 mg at hswill monitor Hypothyroidism 17322661 E03.8 levothyrox ine 225 mcg dailywill monitor Atrial fibrillation 4943 6004 I48.0 eliquis 2.5 mg bidmonitor for any hematomas Type 2 russel betes mellitus 69217845 E11.9 insulin aspart per sliding scalewill monitor Edema 159813278 R60.0 furosemide 40 mg dailymetol azone 2.5 mg daily on T, Th, Sawill monitor Gastroesop hageal reflux disease without esophagitis 871754529 K21.9 omeprazole 40 mg bidwill monitor Recurrent pancreatitis 236360315 K86.1 fu GI prnlow fat dietwill monitor [id number] BRYANNA URBANO NP [facility] [address] [place] [address] 07/25/2022 10:22:57 08/01/2022 15:15:29 COVID-19 204724890 U07.1 07/20 covid positiveen courage po food and fluidscons ider ivf for anorexiaco nsider paxlovid or decadron for symptomsse nd to ED for decompensa tion [id number] BRYANNA URBANO NP [address] [address] 07/30/2022 11:27:21 08/01/2022 15:57:11 COVID-19 090581632 U07.1 07/20 covid positive-a symptomati c, recovered by dateencour age po food and fluidscons ider ivf for anorexiaco nsider paxlovid or decadron for symptomsse nd to ED for decompensa tion [id number] BRYANNA URBANO NP [address] [address] 07/31/2022 12:15:38 08/05/2022 18:21:58 COVID-19 851769473 U07.1 07/20 covid positive-a symptomati c, recovered by dateencour age po food and fluidscons ider ivf for anorexiaco nsider paxlovid or decadron for symptomsse nd to ED for decompensa tionCXR ordered for 07/31 Pancreatitis 68588122 K8 5.90 monitor for symptomsmo nitor labs [id number] BRYANNA URBANO NP [address] [address] 08/01/2022 11:59:17 08/06/2022 08:14:07 COVID-19 183984193 U07.1 07/20 covid positive-a symptomati c, recovered by dateencour age po food and fluidscons ider ivf for anorexiaco nsider paxlovid or decadron for symptomsse nd to ED for decompensa tionCXR ordered for 07/31-negati ve for chf or pna [id number] MIKIE Dasilva [address] [facility] [place] [address] 08/09/2022 10:30:12 08/13/2022 13:00:41 COVID-19 872735181 U07.1 resolved- no new treatment in hospital documentof f isolation precaution scovid rapid negative in facility on 08/09/22 per nursingmon itor for sequelae note: 07/20 covid positive-a symptomati c, recovered by dateencour age po food and fluidscons ider ivf for anorexiaco nsider paxlovid or decadron for symptomsse nd to ED for decompensa tionCXR ordered for 07/31-negati ve for chf or pna Pancreatitis 32405515 K8 5.90 was treated with ivf, medication s, and pain adjuncts- now improvedmo nitor for symptomsav oid fatty foods on low fat dietmonito r labs Chronic pain 28948639 G8 9.29 contdiclof enac gel 1% to shoulders bid, to both hands and spine prnfentany l patch 50 mcg q72 hsalonpas patch to right shoulder dailyAPAP 1000 mg tidtramado l 25 mg bidtizanid ine 2 mg bidprednis one 10 mg dailyPT/OT for weakness and painwill monitor Recurrent pancreatitis 217176246 K86.1 fu GI prnlow fat dietwill monitor Dislocatio n of shoulder joint 692939789 S43.004A pt has right shoulder dislocatio ncontinue pain meds as belowsling and swath as toleratedp assive romPT/OTfu with Dr Velasquez outptmonit or for cms, pulses, disclorati on [id number] MIKIE DUONG [address] [facility] [place] [address] 08/11/2022 10:07:53 08/13/2022 13:35:33 Pancreatitis 05325044 K85.90 monitor for symptomsmo nitor labswas treated with ivf, medication s, and pain adjuncts- now improvedmo nitor for symptomsav oid fatty foods on low fat diet Dislocatio n of shoulder joint 863238456 S43.004A pt has chronic right shoulder dislocatio ncontinue pain medssling and swath as toleratedp assive romPT/OTfu with Dr Velasquez outptmonit or for cms, pulses, disclorati on [id number] MIKIE DUONG [place] [address] [facility] [place] [address] 08/25/2022 11:17:28 08/27/2022 14:05:17 Pancreatitis 93727501 K85.90 monitor for symptomsmo nitor labswas treated with ivf, medication s, and pain adjuncts- now improvedmo xifloxin 400 mg daily x4 daysmonito r for symptoms avoid fatty foods on low fat diet Dislocatio n of shoulder joint 065488255 S43.004A pt has chronic subluxatio n right shoulder dislocatio ncontinue pain meds as belowsling and swath as toleratedp assive romPT/OTfu with Dr Velasquez outptmonit or for cms, pulses, disclorati on Chronic pain 21764692 G8 9.29 contdiclof enac gel 1% to shoulders bid, to both hands and spine prnfentany l patch 50 mcg q72 hsalonpas patch to right shoulder dailyAPAP 1000 mg tidtramado l 25 mg bidtizanid ine 2 mg bidprednis one 10 mg dailyPT/OT for weakness and painwill monitor COVID-19 845858519 U07.1 resolved- no new treatment in hospital documentof f isolation precaution scovid rapid negative in facility on 08/09/22 per nursingmon itor for sequelae note: 07/20 covid positive-a symptomati c, recovered by dateencour age po food and fluidscons ider ivf for anorexiaco nsider paxlovid or decadron for symptomsse nd to ED for decompensa tionCXR ordered for 07/31-negati ve for chf or pna Recurrent pancreatitis 272684340 K86.1 f/u GI prnlow fat dietwill monitor [id number] BRYANNA URBANO NP KAREEM Denis [facility] [place] [address] 09/04/2022 10:39:19 09/08/2022 15:11:55 Dislocation of shoulder joint 851243039 S43.004A pt has chronic subluxatio n right shoulder dislocatio ncontinue pain meds as belowsling and swath as tolerated for comfort prnPT/Edilson/ u with Dr Velasquez outptmonit or for cms, pulses, disclorati on Mixed anxi ety and depressive disorder 194822579 F41.8 bupropion SR 150 mg dailymirta zapine 7.5 mg at hswill monitor [id number] Samina Wilburn MD [address] [place] [address] 10/01/2022 10:06:00 10/03/2022 11:00:52 Atrial fibrillation 31186857 I48.0 apixaban 2.5 mg bidwill monitor Recurrent pancreatitis 325357242 K86.1 fu GIlow fat dietwill monitor Gastroesop hageal reflux disease without esophagitis 379270596 K21.9 omeprazole 40 mg bidwill monitor Type 2 russel betes mellitus 80514104 E11.9 insulin aspart per sliding scalewill monitor Chronic pain 74798131 G8 9.29 diclofenac gel 1% to shoulders bid, to both hands and spine prnfentany l patch 50 mcg q72 hsalonpas patch to right shoulder dailyAPAP 1000 mg tidtramado l 25 mg bidtizanid ine 2 mg bidprednis one 10 mg dailyPT/OT /PM&R prnwill monitor Peripheral edema 5992885 00 R60.0 metolazone 2.5 mg , Th, Sufurosemi de 40 mg bidwill monitor Hypothyroidism 35278411 E03.8 levothyrox ine 225 mcg dailywill monitor Mixed anxi ety and depressive disorder 116881928 F41.8 bupropion SR 150 mg dailymirta zapine 7.5 mg at hstizanidi ne 2 mg bidwill monitor Essential hypertension 54518894 I10 metolazone 2.5 mg daily on , , Safurosemi de 40 mg bidwill monitor [id number] BRYANNA URBANO NP [address] [place] [address] 10/15/2022 14:06:21 10/20/2022 14:25:22 Atrial fibrillation 97032951 I48.0 apixaban 2.5 mg bidwill monitor Recurrent pancreatitis 525099613 K86.1 fu GIlow fat dietwill monitor Gastroesop hageal reflux disease without esophagitis 941618062 K21.9 omeprazole 40 mg bidwill monitor Type 2 russel betes mellitus 41161706 E11.9 insulin aspart per sliding scalewill monitor Chronic pain 58024977 G8 9.29 diclofenac gel 1% to shoulders bid, to both hands and spine prnfentany l patch 50 mcg q72 hsalonpas patch to right shoulder dailyAPAP 1000 mg tidtramado l 25 mg bidtizanid ine 2 mg bidprednis one 10 mg dailyPT/OT /PM&R prnwill monitor Peripheral edema 2001560 00 R60.0 metolazone 2.5 mg , , Sufurosemi de 40 mg bidwill monitor Hypothyroidism 85153753 E03.8 levothyrox ine 225 mcg dailywill monitor Mixed anxi ety and depressive disorder 606213308 F41.8 bupropion SR 150 mg dailymirta zapine 7.5 mg at hstizanidi ne 2 mg bidwill monitor Essential hypertension 31173251 I10 metolazone 2.5 mg daily on , , Safurosemi de 40 mg bidwill monitor [id number] MIKIE DUONG [address] [place] [address] 11/28/2022 13:21:24 12/03/2022 17:20:32 Atrial fibrillation 76789670 I48.0 apixaban 2.5 mg bidwill monitor Recurrent pancreatitis 556173658 K86.1 f/u GIlow fat dietwill monitor Gastroesop hageal reflux disease without esophagitis 231068148 K21.9 omeprazole 40 mg bidwill monitor Type 2 russel betes mellitus 97603649 E11.9 insulin aspart per sliding scalewill monitor Chronic pain 69497672 G8 9.29 diclofenac gel 1% to shoulders bid, to both hands and spine prnfentany l patch 50 mcg q72 hsalonpas patch to right shoulder dailyAPAP 1000 mg tidtramado l 25 mg bidtizanid ine 2 mg bidprednis one 10 mg dailyPT/OT /PM&R prnwill monitor Peripheral edema 9860546 00 R60.0 metolazone 2.5 mg , Th, Sufurosemi de 40 mg bidwill monitor Hypothyroidism 48961841 E03.8 levothyrox ine 225 mcg dailywill monitor Mixed anxi ety and depressive disorder 509079202 F41.8 bupropion SR 150 mg dailymirta zapine 7.5 mg at hstizanidi ne 2 mg bidwill monitor Essential hypertension 20160970 I10 metolazone 2.5 mg daily on , , Safurosemi de 40 mg bidwill monitor [id number] BRYANNA URBANO NP [address] [address] 01/14/2023 14:00:23 01/16/2023 15:25:27 Mixed anxiety and depressive disorder 389658175 F41.8 bupropion SR 150 mg dailymirta zapine 7.5 mg at hstizanidi ne 2 mg bidwill monitor Severe pain 53492542 R52 fentanyl patch 50 mcg q 3 days,predn isone 10 mg qd,APAP 1000 mg tidtramado l 25 mg bid prnPT OT eval and treat prnMonitor Fall W19.XXXA PT OT eval and treatfall precaution sfrequent safety checks [id number] Samina Wilburn MD [address] [address] 02/11/2023 10:06:26 02/13/2023 16:03:58 Mixed anxiety and depressive disorder 857088920 F41.8 bupropion SR 150 mg dailymirta zapine 7.5 mg at hswill monitor Atrial fibrillation 4943 6004 I48.0 apixaban 2.5 mg bidwill monitor Type 2 russel betes mellitus 59141393 E11.9 insulin aspart per sliding scalewill monitor Chronic pain 03232584 G8 9.29 diclofenac gel 1% to shoulders bid, to both hands and spine prnfentany l patch 50 mcg q72 hsalonpas patch to right shoulder dailyAPAP 1000 mg tidtramado l 25 mg bidtizanid ine 2 mg bidprednis one 10 mg dailyPT/OT /PM&R prnwill monitor Gastroesop hageal reflux disease without esophagitis 587179703 K21.9 omeprazole 40 mg bidwill monitor Hypothyroidism 16280928 E03.8 levothyrox ine 225 mcg dailywill monitor Edema 017492656 R60.0 furosemide 40 mg dailymetol azone 2.5 mg daily on T, , Sawill monitor [id number] MD KAREEM Whitaker [address] [place] [address] 03/20/2023 20:34:03 03/23/2023 14:49:16 Ecchymosis present 400721731 S80.02XA Probably bumped it and doesn't remember, no pain, so no tx needed.Mon itor for resolution and monitor for new ecchymoses . Nausea 212779049 R11.0 Mild, periodic and chronic.Wi ll start Zofran 4 mg q 6 hrs prnMonitor sxs. Chronic neck pain 654308 6640 107 M54.2 Already on multiple pain meds.Will start lidocaine patch to neck prn, pt. says it only hurts sometimes, so doesn't want it scheduled. Continue fentanyl patch 50 mcg q 72 hrs, APAP 1000 mg TID,tramad ol 25 mg BID,tizani dine 2 mg BID andprednis one 10 mg qd.Monitor sxs. [id number] BRYANNA URBANO NP [address] [place] [address] 04/03/2023 16:33:21 04/10/2023 09:59:49 Mixed anxiety and depressive disorder 244765873 F41.8 bupropion SR 150 mg dailymirta zapine 7.5 mg at hswill monitor Atrial fibrillation 4943 6004 I48.0 apixaban 2.5 mg bidwill monitor Type 2 russel betes mellitus 52219692 E11.9 insulin aspart per sliding scalewill monitor Chronic pain 51353565 G8 9.29 fentanyl patch 50 mcg q72 hsalonpas patch to right shoulder dailyAPAP 1000 mg tidtramado l 25 mg bidtizanid ine 2 mg bidprednis one 10 mg dailyPT/OT /PM&R prnwill monitor Gastroesop hageal reflux disease without esophagitis 783064761 K21.9 omeprazole 40 mg bidwill monitor Hypothyroidism 65058355 E03.8 levothyrox ine 225 mcg dailywill monitor Edema 086533632 R60.0 furosemide 40 mg dailymetol azone 2.5 mg daily on , , Sawill monitor [id number] MD KAREEM Whitaker [address] [place] [address] 05/29/2023 18:52:13 06/12/2023 13:46:31 Mixed anxiety and depressive disorder 799883405 F41.8 Mood good tonight.Co ntinue bupropion SR 150 mg qd and mirtazapin e 7.5 mg qhsMonitor mood.Psych follows Atrial fibrillation 4943 6004 I48.0 Rate in good control on no rate controllin g meds.Leonora nue eliquis 2.5 mg BID for AC.Monitor HR and bleeding risk. Type 2 russel betes mellitus 19087336 E11.9 Last HgA1C 7.6 in 03/2022.Sug ars in adequate control on diet control with occ. SSI.Monito r fingerstic ks TID, due for recheck of HgA1C, forgot to order. Chronic pain 27100718 G8 9.29 Will add diclofenac gel for hands BID.Contin ue fentanyl patch 50 mcg q 72 hrs, salonpas patch to right shoulder qd, APAP 1000 mg TID, tramadol 25 mg BID, tizanidine 2 mg BID, and prednisone 10 mg qd.Continu e rehab as able.Monit or sxs. Gastroesop hageal reflux disease without esophagitis 094999393 K21.9 No current sxs.Contin ue omeprazole 40 mg BID.Monito r sxs Hypothyroidism 82953020 E03.8 TSH WNL.Contin ue levothyrox ine 225 mcg qdMonitor TSH yearly. Edema 194684576 R60.0 At baseline.C ontinue furosemide 40 mg qd and metolazone 2.5 mg qd on , , SaMonitor sxs. [id number] MIKIE DUONG [address] [facility] [place] [address] 06/29/2023 12:07:31 07/07/2023 18:16:09 Fall 2952821 W19.XXXA PT OT eval and treatfall precaution sfrequent safety checks Contusion of face 194854 004 S00.83XA monitor neurosmoni tor for any signs of infectionm onitor for resolution of the bruising [id number] BRYANNA URBANO NP [address] [address] 07/01/2023 12:23:08 07/07/2023 19:15:00 Contusion of face 792027954 S00.83XA monitor neurosmoni tor for any signs of infectionm onitor for resolution of the bruising Edema 987287879 R60.0 furosemide 40 mg dailymetol azone 2.5 mg daily on T, Th, Sawill monitor [id number] BRYANNA URBANO NP [address] [address] 07/24/2023 12:53:42 08/04/2023 13:25:11 Contusion of face 416840003 S00.83XA resolvedmo nitor neurosmoni tor for any signs of infectionm onitor for resolution of the bruising Edema 687255701 R60.0 furosemide 40 mg dailymetol azone 2.5 mg daily on T, Th, Sawill monitor Fall W19.XXXA PT OT eval and treatfall precaution sfrequent safety checks Mixed anxi ety and depressive disorder 040751058 F41.8 bupropion SR 150 mg dailymirta zapine 7.5 mg at hswill monitor Atrial fibrillation 4943 6004 I48.0 apixaban 2.5 mg bidwill monitor Type 2 russel betes mellitus 32206671 E11.9 insulin aspart per sliding scalewill monitor Chronic pain 25871652 G8 9.29 fentanyl patch 50 mcg q72 hsalonpas patch to right shoulder dailyAPAP 1000 mg tidtramado l 25 mg bidtizanid ine 2 mg bidprednis one 10 mg dailyPT/OT /PM&R prnwill monitor Gastroesop hageal reflux disease without esophagitis 651537481 K21.9 omeprazole 40 mg bidwill monitor Hypothyroidism 62778420 E03.8 levothyrox ine 225 mcg dailywill monitor [id number] NELDA MANSFIELD [address] [address] 09/03/2023 09:01:19 09/08/2023 15:59:59 Dry skin dermatitis 030893205 L85.3 see hpireports intermitte nt itchiness at timesfluid s encouraged Apply moisturize r to skin BIDhydorco rtisone cream TID prn 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 not appreciate d on examwarm salt water rinses QID prngood oral hygiene encourageb arcos teeth after mealschlor hexidine mouth wash qd and HS Toothache 86342874 K08.8 9 [id number] Samina Wilburn MD [address] [address] 09/23/2023 08:31:39 09/29/2023 10:26:59 Mixed anxiety and depressive disorder 461153646 F41.8 bupropion SR 150 mg dailymirta zapine 7.5 mg at hswill monitor Chronic pain 79594880 G8 9.29 diclofenac gel 1% to shoulders daily in eveningfen tanyl patch 50 mcg q72 hLidocaine patch to right shoulder and neck dailyAPAP 1000 mg tidtramado l 25 mg bidtizanid ine 2 mg bidprednis one 10 mg dailyPT/OT /PM&R prnwill monitor Atrial fibrillation 4943 6004 I48.0 apixaban 2.5 mg bidwill monitor Type 2 russel betes mellitus 34662788 E11.9 insulin aspart per sliding scalewill monitor Hypothyroidism 80626053 E03.8 levothyrox ine 225 mcg dailywill monitor Gastroesop hageal reflux disease without esophagitis 977678208 K21.9 omeprazole 40 mg bidwill monitor Edema 910412916 R60.0 furosemide 40 mg dailymetol azone 2.5 mg daily on T, , Sawill monitor Chronic dermatitis 80589 007 L20.89 d/c compressio n stockingst riamcinolo ne cream bidelevate d legswill monitor [id number] NELDA MANSFIELD [address] [address] 09/24/2023 08:15:25 10/01/2023 11:35:02 Fall 8679062 W19.XXXA see hpiPT/OT eval and tx per facility protocolmi nimize fall risknursin g to educate pt on making sure wheelchair is in lock position and front wheels are facing forward before getting up out of chair. Contusion 389110195 T14. 8XXA Patient hit her right almanza against bed frame when she fell forwardnot ed with mild tenderness on eliquismon itor right almanza bruise for healing [id number] NELDA MANSFIELD [address] [address] 10/13/2023 10:07:38 10/15/2023 15:15:36 Neuropathy 558228056 G62.9 bilateral lower extremity calf with tingling pain and tenderness she is not experience any pain relief with current pain medication spatient agrees to try gabapentin times one dose 100mg she will update nursing if she experience relief. Fatigue 17847187 R53.83 appears tirediron studies, tsh, t4, bmp and cbc, vit D and Vit B levels orderedwil l r/o UTI as well. Type 2 russel betes mellitus 93122798 E11.9 currently on lispro SSC will adjust coveragere cently added lantus 10 units10/12 increased lantus to 15 units Hypothyroidism 39328148 E03.8 levothyrox ine 225 mcg dailyord TSH, T4 for 10/13 [id number] NELDA MANSFIELD [address] [address] 10/19/2023 13:21:25 10/22/2023 12:31:39 Vitamin D deficiency 69169774 E55.9 VIt D level 22start cholecacif telly 1000 unit dailyreche ck Vitamin D level in 3-4 months Neuropathy 897817697 G62 .9 today she tells me that she has a postive effect with gabapentin and would like to continue, she has not had any pain.will scheduled gabapentin 100 mg BID Q12 Type 2 russel betes mellitus 92446863 E11.9 currently on lispro SSC will adjust coveragere cently added lantus 10 units10/12 increased lantus to 15 units3/25: FS have improved Hypothyroidism 04843522 E03.8 levothyrox ine 225 mcg dailyord TSH, T4 for 10/13 Pending Dry skin dermatitis 2600 99919 L85.3 posterior calf noted with red patchy areas that are dry and flakyrefus ed rx cream recommende d, prefer and has been using -goldbond creamuses her own with good effect per patient.wi monitor. [id number] NELDA MANSFIELD [address] [address] 10/30/2023 21:18:42 11/02/2023 15:19:50 Type 2 diabetes mellitus 87149522 E11.9 continue lispro SSCcontinu e lantus 15 unitsmonit or FS TID Hypothyroidism 54474249 E03.8 levothyrox ine decreased to 175 mcgTSH 0.1 T4 normal rangerepea t labs in 6 weeks Abdominal pain 54918362 R10.9 see hpicontinu e zofran prn for nauseaplan robin upcoming EGD. [id number] NELDA MANSFIELD [address] [address] 11/04/2023 10:45:41 11/16/2023 16:04:21 Type 2 diabetes mellitus 58958094 E11.9 continue lispro SSCcontinu e lantus 15 unitsmonit or FS TID Hypothyroidism 77603219 E03.8 levothyrox ine decreased to 175 mcgTSH 0.1 T4 normal rangerepea t labs in 6 weeks Abdominal pain 63861260 R10.9 see hpicontinu e zofran prn for nauseaEGD unremarkab le Urinary tr act infectious disease 65070332 N39.0 10/21: postive UAstart levofloxac in 250 mg for 5 daysstart probiotic 1 tab bid for 10 daysincrea se oral hydration. [id number] NELDA MANSFIELD [address] [address] 11/19/2023 10:42:12 11/27/2023 15:22:30 Type 2 diabetes mellitus 73078163 E11.9 continue lispro SSCcontinu e lantus 15 unitsmonit or FS TID Hypothyroidism 45563397 E03.8 levothyrox ine decreased to 175 mcgTSH 0.1 T4 normal rangerepea t labs in 6 weeks Abdominal pain 41895167 R10.9 see hpicontinu e zofran prn for nauseaEGD unremarkab le Urinary tr act infectious disease 33610476 N39.0 3/28: postive UAstart levofloxac in 250 mg for 5 daysstart probiotic 1 tab bid for 10 daysincrea se oral hydration. Mixed anxi ety and depressive disorder 913432807 F41.8 bupropion SR 150 mg dailymirta zapine 7.5 mg at hswill monitor Chronic pain 36014440 G8 9.29 diclofenac gel 1% to shoulders daily in eveningfen tanyl patch 50 mcg q72 hLidocaine patch to right shoulder and neck dailyAPAP 1000 mg tidtramado l 25 mg bidtizanid ine 4 mg bidprednis one 10 mg dailyPT/OT /PM&R prnwill monitor Atrial fibrillation 4943 6004 I48.0 continue apixaban 2.5 mg bid Gastroesop hageal reflux disease without esophagitis 363735277 K21.9 omeprazole 40 mg bidcontinu e zofran 4 mg q6 prn Edema 955633436 R60.0 continue furosemide 40 mg dailyconti nue metolazone 2.5 mg daily on , , Eczema 33525038 L30.9 triamcinol one 0.1 % cream BID Dyspnea 340955659 R06.00 continue albuterol inhaler prn for shortness of breath Osteoarthritis 588459802 M15.0 lidocaine patch right shoulder.f entanyl 50 mcg patch q72 hrAPAP 1000 mg tidtramado l 25 mg bid prnglucosa mine 500 mg tid Chronic neck pain 550301 6737 107 M54.2 continue gabapentin 100 mg BID Neuropathy 597583907 G62 .9 continue gabapentin 100 mg BID. 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 [id number] [facility] [address] [place] [address] [facility] [place] [address] 11/26/2023 18:58:29 12/01/2023 10:07:02 Pain of left heel 5043242420 039694 M79.672 skin prep to bilateral heels BIDoff load heels on pillow when in bedmonitor for worsening sx.Risk factor discussed diabetes ,immobilit y, age [id number] NELDA MANSFIELD [address] [place] [address] 12/14/2023 08:12:26 12/17/2023 13:25:50 Eczema 51401333 L30.9 bilateral lower extremitie s rash with scattered patches dry and redhx chronic edema, there is potential for weeping/oo zingtriamc inolone 0.1 % cream BIDmoistur izes legs daily Pain in right heel 96362 16129 392243 M79.671 right heel red and boggywill add skin prep BIDoffload heels when in bedwear socks with shoes Neuropathy 428753293 G62 .9 reports increasing bilateral leg painwill increase gabapentin to 200 mg BID and re assess for inprovemen t. [id number] NELDA MANSFIELD [address] [place] [address] 01/12/2024 12:10:02 01/13/2024 16:55:18 Easy bruising 327990600 R58 reddish mid upper chest bruising, skin intactshe is noted with scattered bruising on shoulder as well.she takes eliquis and prednisone , diuretic dailywill continue to monitor.wi ll check iron studies and VIT D on next lab day. Hypothyroidism 97843614 E03.8 continue levothyrox ine 175 mcgTSH now 1.74contin ue to monitor. [id number] Ana Damon MD [address] [place] [address] 02/01/2024 21:46:09 02/17/2024 11:18:25 Chronic pain 27196256 G89.29 Remains at baseline.C ontinue fentanyl patch 50 mcg q 72 hrs, salonpas patch to right shoulder qd, APAP 1000 mg TID, tramadol 25 mg BID, tizanidine 2 mg BID, and prednisone 10 mg qd.Continu e rehab as able.Monit or sxs. 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 SSI.Monito r fingerstic ks TID, due for recheck of HgA1C, forgot to order. Gastroesop hageal reflux disease without esophagitis 158325813 K21.9 No current sxs.Contin ue omeprazole 40 mg BID.Monito r sxs Hypothyroidism 76518236 E03.8 TSH WNL.Contin ue levothyrox ine 225 mcg qdMonitor TSH yearly. Edema 549150236 R60.0 Marked tonight.Co ntinue furosemide 40 mg qd and metolazone 2.5 mg qd on , , SaMonitor sxs. Eczema 45494689 L30.9 Much improved.C ontinue triamcinol one 0.1 % cream BID and house moisturize r qdMonitor Neuropathy 212228002 G62 .89 Gabapentin was increased to 200 mg BID on 12/14/23Som e improvemen t since then.Leonora nue other pain meds as above also.Monit or. [id number] MIKIE SCALES [place] [address] [place] [address] rd [facility] [place] [address] 02/18/2024 11:02:37 02/20/2024 09:33:35 Edema 089219497 R60.0 Suspecting more may be going on, [...] nFurther work up as indicated Chronic pain 24648005 G8 9.29 Remains at baseline.C ontinue fentanyl patch 50 mcg q 72 hrs, salonpas patch to right shoulder qd, APAP 1000 mg TID, tramadol 25 mg BID, tizanidine 2 mg BID, and prednisone 10 mg qd.Continu e rehab as able.Monit or sxs. Mixed anxi ety and depressive disorder 608458869 F41.8 Mood goodContin ue bupropion SR 150 mg qd and mirtazapin e 7.5 mg qhsMonitor mood.Psych follows Atrial fibrillation 4943 6004 I48.0 Rate remains in good control on no rate controllin g meds.Leonora nue eliquis 2.5 mg BID for AC.Monitor HR and bleeding risk. Type 2 russel betes mellitus 76979613 E11.9 Last HgA1C 7.6 in 03/2022.Sug ars in adequate control on diet control with occ. SSI.Monito r fingerstic ks TID, due for recheck of HgA1C, forgot to order. Gastroesop hageal reflux disease without esophagitis 299277730 K21.9 No current sxs.Contin ue omeprazole 40 mg BID.Monito r sxs Hypothyroidism 18903889 E03.8 TSH WNL.Contin ue levothyrox ine 225 mcg qdMonitor TSH yearly. Eczema 28928822 L30.9 Much improved.C ontinue triamcinol one 0.1 % cream BID and house moisturize r qdMonitor Neuropathy 865784330 G62 .89 Gabapentin was increased to 200 mg BID on 12/14/23Som e improvemen t since then.Leonora nue other pain meds as above also.Monit or. Candidiasis of mouth 797 72397 B37.0 Aranda plaque on tongue.Voi ce hoarse, ? if also esophageal Nystatin Swish and swallow 5 ml qid x 30 daysMainta in oral hygeine, brush tongue Dental caries 73258832 K 02.9 Planning for teeth # 29 and 31 extraction s.Will hold clearance for now until fluid balance figured out.Will hold basaglar insulin the night before procedureW ill hold eliquis the day before and the day of procedureD oes not appear abx. proph. is warrantedC ardiac risk currently low for dental extraction s. Hypokalemia 09913789 E87 .6 K 3.1 on labs 02/16/24Pla n as above [id number] BRYAN BERNARDO, NELDA HAYNES [address] [place] [address] 02/23/2024 11:06:51 02/24/2024 15:45:14 Edema 372770416 R60.[address] xray did not show [...] restrictio nFurther work up as indicated Hypokalemia 63314873 E87 .6 02/21:Impro thomas 3.4continu e kcl 30 meq daily. Chronic pain 34662833 G8 9.29 Remains at baseline.C ontinue fentanyl patch 50 mcg q 72 hrs, salonpas patch to right shoulder qd, APAP 1000 mg TID, tramadol 25 mg BID, tizanidine 2 mg BID, and prednisone 10 mg qd.Continu e rehab as able.Monit or sxs. Mixed anxi ety and depressive disorder 108870830 F41.8 Mood goodContin ue bupropion SR 150 mg qd and mirtazapin e 7.5 mg qhsMonitor mood.Psych follows Atrial fibrillation 4943 6004 I48.0 Rate remains in good control on no rate controllin g meds.Leonora nue eliquis 2.5 mg BID for AC.Monitor HR and bleeding risk. Type 2 russel betes mellitus 39763926 E11.9 Last HgA1C 7.6 in 03/2022.Sug ars in adequate control on diet control with occ. SSI.Monito r fingerstic ks TID, due for recheck of HgA1C, forgot to order. Gastroesop hageal reflux disease without esophagitis 354393916 K21.9 No current sxs.Contin ue omeprazole 40 mg BID.Monito r sxs Hypothyroidism 84528181 E03.8 TSH WNL.Contin ue levothyrox ine 225 mcg qdMonitor TSH yearly. Eczema 93987697 L30.9 Much improved.C ontinue triamcinol one 0.1 % cream BID and house moisturize r qdMonitor Neuropathy 234029791 G62 .89 Gabapentin was increased to 200 mg BID on 12/14/23Som e improvemen t since then.Leonora nue other pain meds as above also.Monit or. Pneumonia 784855932 J18. 9 02/17: chest xray showed bilateral [...] rage fluid hydration. Vitamin D deficiency 347 42058 E55.9 12/06:Vit D level 20.4 - this is lower than previous levelwas taking cholecalci ferol 1000 unit daily -will increases to 50,000 unit weekly on thursday.patricia parkinson recheck in 2 months. [id number] NELDA MANSFIELD [facility] [address] [place] [address] [place] [address] 02/25/2024 10:46:10 02/29/2024 16:18:54 Edema 191708650 R60.[address] xray did not show [...] restrictio nFurther work up as indicated Hypokalemia 48613986 E87 .6 02/21:Impro thomas 3.4continu e kcl 30 meq daily. Chronic pain 97021110 G8 9.29 Remains at baseline.C ontinue fentanyl patch 50 mcg q 72 hrs, salonpas patch to right shoulder qd, APAP 1000 mg TID, tramadol 25 mg BID, tizanidine 2 mg BID, and prednisone 10 mg qd.Continu e rehab as able.Monit or sxs. Mixed anxi ety and depressive disorder 292157513 F41.8 Mood goodContin ue bupropion SR 150 mg qd and mirtazapin e 7.5 mg qhsMonitor mood.Psych follows Atrial fibrillation 4943 6004 I48.0 Rate remains in good control on no rate controllin g meds.Leonora nue eliquis 2.5 mg BID for AC.Monitor HR and bleeding risk. Type 2 russel betes mellitus 14006391 E11.9 Last HgA1C 7.6 in 03/2022.Sug ars in adequate control on diet control with occ. SSI.Monito r fingerstic ks TID, due for recheck of HgA1C, forgot to order. Gastroesop hageal reflux disease without esophagitis 401968432 K21.9 No current sxs.Contin ue omeprazole 40 mg BID.Monito r sxs Hypothyroidism 31267201 E03.8 TSH WNL.Contin ue levothyrox ine 225 mcg qdMonitor TSH yearly. Eczema 00346789 L30.9 Much improved.C ontinue triamcinol one 0.1 % cream BID and house moisturize r qdMonitor Neuropathy 694960917 G62 .89 Gabapentin 200 mg BIDreports bilateral lower extremity pain- noted with swelling >in LLE than RLE-awaiti ng ultrasound to r/o DVT. due to be done today at 3 pmPt willing to try diclofenac gel for lower extremity to see it helps with pain. Pneumonia 115257181 J18. 9 02/17: chest xray showed bilateral [...] rage fluid hydration. Vitamin D deficiency 347 10208 E55.9 12/06:Vit D level 20.4 - this is lower than previous levelwas taking cholecalci ferol 1000 unit daily -will increases to 50,000 unit weekly on thursday.patricia l recheck in 2 months. [id number] NELDA MANSFIELD [address] [place] [address] 02/29/2024 18:11:58 03/01/2024 13:10:29 Pneumonia 304003196 J18.9 breathing is easy and unlabored: chest xray showed bilateral airspace opacities. No pleural effusion.c ontinue augmentin 500 mg TID until 03/04 and azithromyc in 500 mg for 1 day and then continue 250 mg for 4 days .check VS q shiftencou rage fluid hydration. [id number] NELDA MANSFIELD [address] [place] [address] 03/16/2024 10:26:05 03/18/2024 10:30:33 Pneumonia 575688178 J18.9 completed abxbreathi ng is easy and unlabored Mixed anxi ety and depressive disorder 178381863 F41.8 Mood is stable.Con tinue:bupr opion SR 150 mg qdmirtazap ine 7.5 mg qhs-03/14 seen by psych with recommenda tion for GDR for mirtazapin e now ordered at 5 mg hs. patient in agreement. Monitor mood. [id number] NELDA MANSFIELD [address] [place] [address] 03/23/2024 11:08:46 03/31/2024 14:26:29 Edema 990877932 R60.0 Marked tonight.Co ntinue furosemide 40 mg qd and metolazone 2.5 mg qd on T, Th, SaMonitor sxs. Chronic pain 64576499 G8 9.29 Remains at baseline.C ontinue fentanyl patch 50 mcg q 72 hrs, salonpas patch to right shoulder qd, APAP 1000 mg TID, tramadol 25 mg BID, tizanidine 2 mg BID, and prednisone 10 mg qd.Continu e rehab as able.Monit or sxs. Mixed anxi ety and depressive disorder 427212130 F41.8 Continue bupropion SR 150 mg qd and mirtazapin e 7.5 mg qhsMonitor mood.Psych follows Atrial fibrillation 4943 6004 I48.0 Continue eliquis 2.5 mg BID for AC.Monitor HR and bleeding risk. Type 2 russel betes mellitus 40972511 E11.9 continue lantus 15 units at HSmonitor FS Gastroesop hageal reflux disease without esophagitis 254702960 K21.9 No current sxs.Contin ue omeprazole 40 mg BID.Monito r sxs Hypothyroidism 47648120 E03.8 TSH WNL.Contin ue levothyrox ine 175 mcgMonitor TSH yearly. Eczema 79043513 L30.9 Much improved.C ontinue triamcinol one 0.1 % cream BID and house moisturize r qdMonitor Neuropathy 409941028 G62 .89 Gabapentin 200 mg BIDMonitor . Hypokalemia 83835781 E87 .6 continue kcl 30 meq daily. Vitamin D deficiency 347 32262 E55.9 12/06 Vit D level 20.4 - this is lower than previous levelwas taking cholecalci ferol 1000 unit daily-incr eased to 50,000 unit weekly on thursday.patricia parkinson recheck vit d level on next lab day. [id number] NELDA MANSFIELD [facility] [address] [place] [address] 03/29/2024 10:37:33 03/31/2024 14:35:20 Mixed anxiety and depressive disorder 140144874 F41.8 Mood is stable todayConti nue:buprop ion SR 150 mg qdwith trial gdr off mirtazapin e 7.5 mg qhs-decrea sed to 3.75 mgMonitor mood, patient will report unwanted side effects of gdr such as increased anxiety, restlessne ss, insomnia [id number] NELDA MANSFIELD [facility] [address] [place] [address] 04/26/2024 14:44:48 05/02/2024 13:49:37 Cellulitis of left lower limb 4210895254 9717333 L03.116 Met sepsis criteria due to 101.5 F, WBC 19.2recent ly started on Keflex for left lower extremity cellulitis on 04/15.CT chest without any focal findings of pneumonia. s/p iv van and zosyndisch arge on take Augmentin till 04/24/24 Extravasat ion of intravenous contrast medium 211009429 T80.818A In acute care found to have left arm swelling tx conservati vely with warm compress and elevation. Atrial fibrillation 4943 6004 I48.0 Continue eliquis 2.5 mg BID for AC.Monitor HR and bleeding risk. Hypothyroidism 04992440 E03.8 TSH WNL.Contin ue levothyrox ine 175 mcgMonitor TSH yearly. Gastroesop hageal reflux disease without esophagitis 121868227 K21.9 No current sxs.Contin ue omeprazole 40 mg BID.Monito r sxs Osteoarthritis 633945319 M15.0 lidocaine patch right shoulder.f entanyl 50 mcg patch q72 hrAPAP 1000 mg tidtramado l 25 mg bid prnglucosa mine 500 mg tid Type 2 russel betes mellitus 99165677 E11.9 continue lantus 15 units at [facility] FS [id number] NELDA MANSFIELD [facility] [address] [place] [address] 05/02/2024 09:59:17 05/03/2024 11:50:42 Cellulitis of left lower limb 6273191619 8552635 L03.116 05/02: see hpiLLE edema and pain, patient thinks she needs more abx, we discussed physical findings, exam reassuring , not convinced swelling/p ain is due to infection. awaiting ultrasound to r/o DVTreitera cassie to apply wilma wrap daily. Met sepsis criteria due to 101.5 F, WBC 19.2recent ly started on Keflex for left lower extremity cellulitis on 04/15.CT chest without any focal findings of pneumonia. s/p iv van and zosyndisch arge on take Augmentin till 04/24/24 Extravasat ion of intravenous contrast medium 777047775 T80.818A In acute care found to have left arm swelling tx conservati vely with warm compress and elevation. Atrial fibrillation 4943 6004 I48.0 Continue eliquis 2.5 mg BID for AC.Monitor HR and bleeding risk.repor table sx reviewed. Hypothyroidism 29130956 E03.8 TSH WNL.Contin ue levothyrox ine 175 mcgMonitor TSH yearly. Gastroesop hageal reflux disease without esophagitis 678133564 K21.9 No current sxs.Contin ue omeprazole 40 mg BID.Monito r sxs Osteoarthritis 776276059 M15.0 fentanyl 50 mcg patch q72 hrAPAP 1000 mg tidtramado l 25 mg bid prnglucosa mine 500 mg tid Type 2 russel betes mellitus 50075208 E11.9 continue lantus 15 units at [facility] [id number] NELDA MANSFIELD [address] [address] 05/05/2024 10:15:43 05/10/2024 15:49:53 Cellulitis of left lower limb 4073327710 0453050 L03.116 05/05: Ultrasound results reviewed, negative for [...] reviewed. Gastroesop hageal reflux disease without esophagitis 932893467 K21.9 stableNo current sxs.Contin ue omeprazole 40 mg BID.Monito r sxs Osteoarthritis 094675277 M15.0 stablefent anyl 50 mcg patch q72 hrAPAP 1000 mg tidtramado l 25 mg bid prn Type 2 russel betes mellitus 06586928 E11.9 continue lantus 15 units at [facility] [id number] NELDA MANSFIELD [address] [address] 05/09/2024 11:51:06 05/10/2024 16:10:25 Cellulitis of left lower limb 3783296560 6867628 L03.116 resolved Atrial fibrillation 4943 6004 I48.0 stable without sx.Continu e eliquis 2.5 mg BID for AC.Monitor HR and bleeding risk.repor table sx reviewed. Gastroesop hageal reflux disease without esophagitis 182092959 K21.9 stableNo current sxs.Contin ue omeprazole 40 mg BID.Monito r sxs Osteoarthritis 172621266 M15.0 stablefent anyl 50 mcg patch q72 hrAPAP 1000 mg tidtramado l 25 mg bid Type 2 russel betes mellitus 59585129 E11.9 continue lantus 15 units at HSmonitor FS- mainly under 200sshe is without hypo/hyper glucose sx. Edema 649174367 R60.0 BLE decreased edema note, she is wearing wilma wrapsconti nue torsemide 20 mg daily and metolazone as ord. [id number] NELDA MANSFIELD [facility] e [address] [place] [address] [place] [address] 05/12/2024 11:47:54 05/13/2024 11:46:56 Atrial fibrillation 91517023 I48.0 stable without sx.Continu e eliquis 2.5 mg BID for AC.Monitor HR and bleeding risk.repor table sx reviewed. Gastroesop hageal reflux disease without esophagitis 478667026 K21.9 stableNo current sxs.Contin ue omeprazole 40 mg BID.Monito r sxs Osteoarthritis 211966892 M15.0 stablefent anyl 50 mcg patch q72 hrAPAP 1000 mg tidtramado l 25 mg bid Type 2 russel betes mellitus 19879176 E11.9 continue lantus 15 units at [facility] FS- mainly under 200sshe is without hypo/hyper glucose sx. Edema 693180181 R60.0 BLE decreased edema note, she is wearing wilma wrapsconti nue torsemide 20 mg daily and metolazone as ord. Spinal roni nosis of lumbar region 45310298 M48.062 fentanyl patch 50 mcgprednis one 10 mg daily - taper to start 05/16/24de creasing by 1 mg per week. 840989 NELDA MANSFIELD [address] [place] [address] 05/16/2024 08:25:38 05/18/2024 09:23:51 Atrial fibrillation 76346352 I48.0 stable without sx.Continu e eliquis 2.5 mg BID for AC.Monitor HR and bleeding risk.repor table sx reviewed. Gastroesop hageal reflux disease without esophagitis 876784278 K21.9 stableNo current sxs.Contin ue omeprazole 40 mg BID.Monito r sxs Osteoarthritis 540773193 M15.0 stablefent anyl 50 mcg patch q72 hrAPAP 1000 mg tidtramado l 25 mg bid Type 2 russel betes mellitus 94298231 E11.9 [facility]- mainly under 200sshe is without hypo/hyper glucose sx. Edema 244294157 R60.0 BLE decreased edema note, she is wearing wilma wrapsconti nue torsemide 20 mg daily and metolazone as ord. Spinal roni nosis of lumbar region 04550852 M48.062 fentanyl patch 50 mcgprednis one 10 mg daily - taper to start 05/16/24de creasing by 1 mg per week. Itching of skin 84654913 0 L29.9 left shoulder is without redness or rashencour aged to apply lotion dailywill start claritin 10 mg daily. 369255 NELDA MANSFIELD [address] [place] [address] 05/19/2024 11:11:15 05/23/2024 15:12:03 Atrial fibrillation 06898092 I48.0 stable without sx.Continu e eliquis 2.5 mg BID for AC.Monitor HR and bleeding risk.repor table sx reviewed. Gastroesop hageal reflux disease without esophagitis 132641694 K21.9 stableNo current sxs.Contin ue omeprazole 40 mg BID.Monito r sxs Osteoarthritis 159265473 M15.0 stablefent anyl 50 mcg patch q72 hrAPAP 1000 mg tidtramado l 25 mg bid Type 2 russel betes mellitus 82513697 E11.9 continue lantus 15 units at [facility] FS- mainly under 200sshe is without hypo/hyper glucose sx. Edema 925978894 R60.0 BLE decreased edema note, she is wearing wilma wrapsconti nue torsemide 20 mg daily and metolazone as ord. Spinal roni nosis of lumbar region 58754208 M48.062 fentanyl patch 50 mcgprednis one 10 mg daily - taper to start 05/16/24de creasing by 1 mg per week. Itching of skin 44557768 0 L29.9 left shoulder is without redness or rashencour aged to apply lotion dailywill start claritin 10 mg daily. 136991 NELDA MANSFIELD [address] [place] [address] 05/23/2024 07:53:51 05/24/2024 13:52:57 Atrial fibrillation 28339285 I48.0 stable without sx.Continu e eliquis 2.5 mg BID for AC.Monitor HR and bleeding risk.repor table sx reviewed. Gastroesop hageal reflux disease without esophagitis 445469299 K21.9 stableNo current sxs.Contin ue omeprazole 40 mg BID.Monito r sxs Osteoarthritis 554716208 M15.0 stablefent anyl 50 mcg patch q72 hrAPAP 1000 mg tidtramado l 25 mg bid Type 2 russel betes mellitus 97840670 E11.9 continue lantus 15 units at [facility]- mainly under 200sshe is without hypo/hyper glucose sx. Edema 258043633 R60.0 BLE decreased edema note, she is wearing wilma wrapsconti nue torsemide 20 mg daily and metolazone as ord. Spinal roni nosis of lumbar region 21172767 M48.062 fentanyl patch 50 mcgprednis one 10 mg daily - taper to start 05/16/24de creasing by 1 mg per week. Itching of skin 13004354 0 L29.9 left shoulder is without redness or rashencour aged to apply lotion dailywill start claritin 10 mg daily. [id number] NELDA MANSFIELD [address] [place] [address] 05/27/2024 07:54:05 05/30/2024 13:39:41 Atrial fibrillation 29152135 I48.0 stable without sx.Continu e eliquis 2.5 mg BID for AC.Monitor HR and bleeding risk.repor table sx reviewed. Gastroesop hageal reflux disease without esophagitis 520905290 K21.9 stableNo current sxs.Contin ue omeprazole 40 mg BID.Monito r sxs Osteoarthritis 390472061 M15.0 stablefent anyl 50 mcg patch q72 hrAPAP 1000 mg tidtramado l 25 mg bid Type 2 russel betes mellitus 28273555 E11.9 continue lantus 15 units at [facility]- mainly under 200sshe is without hypo/hyper glucose sxwill need updated A1c as we taper off prednisone Edema 102223950 R60.0 improved with compressio n stockings. continue torsemide 20 mg daily and metolazone as ord. Spinal roni nosis of lumbar region 09516614 M48.062 fentanyl patch 50 mcgprednis one 10 mg daily - tapering off 1 mg per weekdecrea sing by 1 mg per week. Itching of skin 91459261 0 L29.9 stableleft shoulder is without redness or rashencour aged to apply lotion dailywill start claritin 10 mg daily. [id number] NELDA MANSFIELD [address] [place] [address] 06/02/2024 09:27:55 06/06/2024 12:53:38 Atrial fibrillation 85301901 I48.0 stable without sx.Continu e eliquis 2.5 mg BID for AC.Monitor HR and bleeding risk.repor table sx reviewed. Gastroesop hageal reflux disease without esophagitis 549894233 K21.9 reports hypogastri c non radiating pain+ nausea no vomitinNo current sxs.Contin ue omeprazole 40 mg BID.Monito r sxs Osteoarthritis [id number] M15.0 stablefent anyl 50 mcg patch q72 hrAPAP 1000 mg tidtramado l 25 mg bid Type 2 russel betes mellitus 05708543 E11.9 stablecont inue lantus 15 units at [facility]- mainly under 200sshe is without hypo/hyper glucose sx Edema 163088193 R60.0 improved with compressio n stockings. continue torsemide 20 mg daily and metolazone as ord. Blister of lower leg without infection 22627609 S80.822A initially fluid filled with clear liquidnow burst-anais ent recently tx for cellulitis , I prefer wound to be tx with and antispetic nursing ord to cleanse with NS 0r warm soap and water dialy, paint with betadine with non adhesive dressing and kerlix. [id number] BRYAN BERNARDO[address] [address] 06/06/2024 08:41:07 06/07/2024 11:48:57 Atrial fibrillation [id number] I48.0 stable without sx.Continu e eliquis 2.5 mg BID for AC.Monitor HR and bleeding risk.repor table sx reviewed. Gastroesop hageal reflux disease without esophagitis [id number] K21.9 No current sxs.Contin ue omeprazole 40 mg BID.Monito r sxs Osteoarthritis 350141892 M15.0 stablefent anyl 50 mcg patch q72 hrAPAP 1000 mg tidtramado l 25 mg bid Type 2 russel betes mellitus 99233892 E11.9 stablecont inue lantus 15 units at [facility]- mainly under 200sshe is without hypo/hyper glucose sx Edema 214444413 R60.0 continue torsemide 20 mg daily and metolazone as ord. Blister of lower leg without infection 39743117 S80.822A initially fluid filled with clear liquidnow burst-anais ent recently tx for cellulitis , I prefer wound to be tx with and antispetic as well.adriani asia ord to cleanse with NS 0r warm soap and water dialy, paint with betadine cover with xeroform dressing and kerlix. [id number] BRYAN BERNARDO [address] [address] 06/16/2024 11:11:20 06/21/2024 11:07:01 Edema 120360484 R60.0 continue torsemide 20 mg daily and metolazone as ord. Blister of lower leg without infection 45922850 S80.822A initially fluid filled with clear liquidnow [...] recs to continue current tx ords. Dysuria 36895618 R30.0 send urine for UA with C&Swater encouraged to flush out toxins Fatigue 15727785 R53.83 recheck bmp, cbc, TSH,iron , ammonia and Vit B & D levels on 06/17 [id number] NELDA MANSFIELD [address] [place] [address] 06/27/2024 12:04:26 06/30/2024 11:21:08 Cellulitis of right lower limb [id number] 8804056 L03.115 2/2 diabetes and decreased skin integrity from venous stasis and chronic prednisone usetx with IV ancef in acute carecomple cassie po abx keflex on 06/24follo wed by Wound MD Venous ins ufficiency of leg 378479696 I87.2 chronic BLE edema/RLE acute DVT /right almanza erupted skin blisterdis cussed with nursing, continue eliquis and wound tx with xeroform Acute deep venous thrombosis of femoral vein 6048342619 97445 I82.419 non occlusive/ RLEon eliquis 5 mg BID Chronic heart failure 48 200210 I50.9 acute on chronic/el evated BNP tx with IV lasixCXR showed interstiti al markings but difficult to interpret due to underlying fibrosisco ntinue torsemide and metolazone monitor labs Edema 995225892 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 [id number] NELDA MANSFIELD [address] [place] [address] 06/30/2024 08:36:09 07/01/2024 12:09:02 Cellulitis of right lower limb [id number] 6507920 L03.115 completed abxdenies any pain, per nsg no erythema or warmth Venous ins ufficiency of leg 834075425 I87.2 chronic BLE edema/RLE acute DVT /right almanza erupted skin blisterdis cussed with nursing, continue eliquis and wound tx Acute deep venous thrombosis of femoral vein 6266664213 90304 I82.419 non occlusive/ RLEon eliquis 5 mg BID Chronic heart failure 48 099295 I50.9 acute on chronic/el evated BNP tx with IV lasixCXR showed interstiti al markings but difficult to interpret due to underlying fibrosisco ntinue torsemide and metolazone baseline crackles with hx of pulm. 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 Wound 582973251 T14.90 XA see pi2/2 to erupted blisterfol lowed by wound MD with recent changes to oil emulsion.shelbie kelly provided why tx was changedwil l resume previous tx order of NS and betadine per patient request and have wound re evaldiscus sed with nursing [id number] [facility] [address] [place] [address] 07/04/2024 10:17:37 07/05/2024 14:29:23 Venous insufficiency of leg 460186986 I87.2 stablechro gavin BLE edema/RLE acute DVT /right almanza erupted skin blisterdis cussed with nursing, continue eliquis and wound tx Acute deep venous thrombosis of femoral vein 2712519131 27741 I82.419 non occlusive/ RLEon eliquis 5 mg BID Chronic heart failure 48 241685 I50.9 acute on chronic/el evated BNP tx with IV lasixCXR showed interstiti al markings but difficult to interpret due to underlying fibrosisco ntinue torsemide and metolazone baseline crackles with hx of pulm. fibrosismo nitor labs Edema 176595077 R60.0 chronic/st abl;e with no increase on exam todayconsi jeff referral to lymphedema clinic - she often c/o pain, she is at increase risk for recurrent infection. Wound 267593587 T14.90 XA see pi2/2 to erupted blisterfol lowed by wound with recent changes to oil emulsion.shelbie kelly provided why tx was changedwil l resume previous tx order of NS and betadine per patient request and have wound re evaldiscus sed with nursing [id number] [facility] [address] [place] [address] 07/07/2024 08:16:53 07/08/2024 13:27:39 Venous insufficiency of leg 547121736 I87.2 stablechro gavin BLE edema/RLE acute DVT /right almanza erupted skin blisterdis cussed with nursing, continue eliquis and wound txseen by wound with new order changes made in pcc. Acute deep venous thrombosis of femoral vein 5109825369 50730 I82.419 non occlusive/ RLEon eliquis 5 mg BID Chronic heart failure 48 264213 I50.9 continue torsemide and metolazone baseline crackles with hx of pulm. fibrosismo nitor labs Edema 734395101 R60.0 chronic/st ableconsid er referral to lymphedema clinic - she often c/o pain, she is at increase risk for recurrent infection. [id number] [facility] [address] [place] [address] 07/11/2024 10:40:35 07/12/2024 12:07:39 Venous insufficiency of leg 213256479 I87.2 stablechro gavin BLE edema/RLE acute DVT /right almanza erupted skin blisterdis cussed with nursing, continue eliquis and wound txfollowed by wound /continu e current tx orders. Acute deep venous thrombosis of femoral vein 1088844773 40506 I82.419 non occlusive/ RLEon eliquis 5 mg BID Chronic heart failure 48 970145 I50.9 baseline BLE edema, otherwise no worsening edema notedconti nue torsemide and metolazone baseline crackles with hx of pulm. fibrosismo nitor labs Edema 518003757 R60.0 chronic/st ableconsid er referral to lymphedema clinic - she often c/o pain, she is at increase risk for recurrent infection. 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 Health Concerns Section Related Observation LastModified by Organization Detai ls LastModified Time None Recorded Concern Status LastModified by Organization Details LastModified Time None Recorded Advance Directives Directive Y: Payers Insurance Date Sequence Insurance Name Policy Number Policy [place] Covered Member ID [place] Member ID Guarantor Name 07/07/2024 2 [place] [facility] [place] Lissa [id number] [place] Alcaraz 07/07/2024 2 [place] [id number] [place] Lissa [id number] [place] Lissa 07/07/2024 1 [place] B[place] [employer] [place] Lissa [id number] [place] Lissa Notes Date Note Type Note Provider Name [...] and history of PE NELDA MANSFIELD [address] [facility], [address], [place], [address], [facility] 07/07/2024 15:22:09 07/11/2024 text/html [place] is an [...] and history of PE NELDA MANSFIELD [address] [facility], [address], [place], [address], [employer] 07/11/2024 14:31:09 07/15/2024 text/html This is an 84 yr old women seen for acute rounding visit, she is reporting dysuria for a few days and states sx are similar to past UTI complaints. she denies any frequency or urgency, she has been afebrile. NELDA MANSFIELD [address] [facility], [address], [place], [address], [facility] [address] 07/15/2024 12:35:05 07/18/2024 text/html This is an 84 yr old women seen for acute rounding visit for follow for dysuria. Recent UA negative for infection, pt updated on results, she now reports that she is no longer experiencing sx.she encouraged to increase fluid preferably water. NELDA MANSFIELD [address] [facility], [address], [place], [address], [employer] 07/18/2024 12:28:32 07/21/2024 text/html This is an 84 yr old women seen for acute rounding visit. She has been at baseline in NAD, today she is doing ok, there are no acute concerns. 07/21/24 Tested negative for covid NELDA MANSFIELD [address] , [address], [place], [address], [employer] 07/21/2024 15:46:48 OBGyn Episode No OBEpisode recorded.
== END 2025-01-23 07:47 | disposition home or self-care (01) ==
LOC: HO.MMNH3L 07:46
PROVIDERS: Visit Provider Family Medicine
DX: I10 Essential (primary) hypertension (principal)
CPT/HCPCS: 36415; 80048; 85025

== ENCOUNTER 2025-01-31 05:43 | Outpatient (REF) | payer MEDICARE, MEDICAID, SELFPAY ==
[2025-01-31 06:55] LABS: Appearance Urine Turbid; Glucose Urine UA Negative (Negative); PH 6.5 (5.0-9.0); Specific Gravity - Urine 1.015 (1.005-1.025); UMIC TRIGGER UA YES
== END 2025-01-31 05:44 | disposition home or self-care (01) ==
LOC: HO.MMNH3L 05:43
PROVIDERS: Visit Provider Student in an Organized Health Care Education/Training Program
DX: N32.89 Other specified disorders of bladder (principal)
CPT/HCPCS: 81001; 87086; 87088; 87186

== ENCOUNTER 2025-02-06 06:49 | Outpatient (REF) | payer MEDICARE, MEDICAID, SELFPAY ==
[2025-02-06 06:51] LABS: MANUAL DIFF FLAG NO
--- OUTSIDE RECORDS SUMMARY | 2025-02-06 06:52 | XMS_ITS | Data Portability ---
Author Organization [facility], Main Office Address [address] [facility] [address] [facility], [address] [place] [address] Care Team Providers Care Sales Performance Analyst Name Role Phone KAREEM HAYNES 3RD FLOOR OTHER [phone] Assessment Encounter Date Assessment Date Assessment LastModified [...] Address Organization Details Recorded Time Severe pain 76014058 Active 2021 back pain BRYANNA URBANO NP [address] [facility], [address], [place], [address], [facility] 13:15:21 Adult failure to thrive syndrome 905682689 Active 2021 BRYANNA URBANO, MIKIE [address] [facility], [address], [place], [address], [facility] 2 13:15:35 Fall Active 2021 BRYANNA URBANO NP [address], [address], [place], [address], [facility] 2 13:15:44 Gastroes ophageal reflux disease without esophagi tis 122782315 Active 2021 BRYANNA URBANO NP [address] [facility], [address], [place], [address], [facility] 2 13:16:01 Osteoart hritis 277923721 Active 2021 BRYANNA URBANO NP [address] [facility], [address], [place], [address], [facility] 2 13:16:10 Mixed anxiety and depressi ve disorder 666103919 Active 2021 BRYANNA URBANO NP [address] [facility], [address], [place], [address], [facility] 3 10:40:32 Hypothyr oidism 59865564 Active 2021 BRYANNA URBANO NP [address] [facility], [address], [place], [address], [facility] 2 13:16:28 Osteopor osis 44268464 Active 2021 BRYANNA URBANO NP [address], [address], [place], [address], [facility] 13:17:10 Atrial fibrilla tion 33923527 Active 2021 BRYANNA URBANO, MIKIE [address], [address], [place], [address], [facility] 2 14:21:30 Hyperlip idemia 35499113 Active 2021 BRYANNA VELAPIN, [employer] [address], [address], [place], [address], [facility] 2 14:21:52 Spinal stenosis of lumbar region 66723400 Active 2021 Ana Damon MD [address], [address], [place], [address], [facility] 2 19:13:30 Edema 610605293 Active 2021 BRYANNA YOLIE, [employer] [address], [address], [place], [address], [facility] 2 13:22:11 Hypokale doretha 89603504 Active 2021 Ana Damon MD [address], [address], [place], [address], [facility] 2 23:44:02 Pancreat itis 69067400 Active 2021 BRYANNA URBANO, [employer] [address] [facility], [address], [place], [address], [facility] 2 14:58:02 Generali zed osteoart hritis 388597831 Active 2021 Ana Damon MD [address] [facility], [address], [place], [address], [facility] 2 14:42:49 Contusio n 078904596 Active 2021 right buttock BRYANNA YOLIE, [employer] [address] [facility], [address], [place], [address], [facility] 3 12:37:52 COVID-19 893732419 Active 2021 BRYANNA YOLIE, [employer] [address], [address], [place], [address], [facility] 2 10:44:44 Dislocat ion of shoulder joint 527723591 Active 2022 Margarette Awad NP [address], [address], [place], [address], [facility] 3 11:28:04 Chronic neck pain 48258656490 07 Active 2022 Ana Damon MD [address], [address], [place], [address], [facility] 3 21:36:27 Nausea 697250765 Active 2022 Ana Damon MD [address], [address], [place], [address], [facility] 3 21:36:31 Type 2 diabetes mellitus 24874147 Active 2022 Ana Damon MD [address], [address], [place], [address], [facility] 3 20:16:36 Contusio n of face 745894213 Active 2022 BRYANNA URBANO NP [address], [address], [place], [address], [facility] 3 12:37:45 Urinary tract infectio us disease 57354343 Active 2023 NELDA MANSFIELD [address], [address], [place], [address], [facility] 4 14:59:19 Dyspnea 669127776 Active 2023 NELDA MANSFIELD [address], [address], [place], [address], [facility] 4 22:03:33 Neuropat hy 886761817 Active 2023 NELDA MANSFIELD [address], [address], [place], [address], [facility] 4 22:17:58 Constipa tion 09061200 Active 2023 NELDA MANSFIELD [address], [address], [place], [address], [facility] 4 22:22:39 Chronic pain 61081295 Active 2023 Ana Damon MD [address], [address], [place], [address], [facility] 4 10:49:48 Cellulit is 559313360 Active 2023 ENLDA MANSFIELD [address] [facility], [address], [place], [address], [facility] 4 09:09:15 Manav contreras [id number] Completed 202306/06/2024 on predniso ne 10 mg daily NELDA MANSFIELD [address] [place] [address], [address], [place], [address], [facility] 4 15:48:25 Venous insuffic iency of leg 694683731 Active 2023 NELDA MANSFIELD [address] [place] [address], [address], [place], [address], [facility] 4 02:16:11 Chronic heart failure 24772937 Active 2023 NELDA MANSFIELD [address] [place] [address], [address], [place], [address], [facility] 4 02:24:16 Problem Notes None recorded. Medical Equipment None Reported. Allergies Allergen ID Allergen Name Allergen Category Reaction Reaction Severity Criticality Documentation Date Start Date Code Code System Note Provider Name and Address Organization Details Recorded Time 86233 amitripty line medicatio n Not available Not available Not available 09/25/2021 704 RxNorm BRYANNA YOLIE, MIKIE [address] [place] [address], [address], [place], [address], [facility] 2 13:14:24 65516 morphine medicatio n Not available Not available Not available 09/25/2021 7052 RxNorm BRYANNA YOLIE, [employer] [address] [facility], [address], [place], [address], [facility] 2 13:14:30 38698 oxycodone medicatio n Not available Not available Not available 09/25/2021 7804 RxNorm BRYANNA YOLIE, MIKIE [address] [facility], [address], [place], [address], [facility] 2 13:14:37 85038 Demerol medicatio n Not available Not available Not available 09/25/2021 00881 1 RxNorm BRYANNA YOLIE, [employer] [address], [address], [place], [address], [facility] 2 13:14:42 01314 Phenergan medicatio n Not available Not available Not available 09/25/2021 32741 8 RxNorm BRYANNA GRIPPIN, [employer] [address], [address], [place], [address], [facility] 2 13:14:50 31175 lactose food,medi cation Not available Not available Not available 09/25/2021 6211 RxNorm BRYANNA YOLIE, [employer] [address] [facility], [address], [place], [address], [facility] 2 13:14:59 Medications Name Sig Start [...] DateTime 07/07/2024 162.56 cm NELDA MANSFIELD [address] [facility], [address], [place], [address], [facility] 07/07/2024 08:58:12 Date Recorded Body height Provider Name an d Address Organization Details Last Updated DateTime 07/11/2024 162.56 cm NELDA MANSFIELD [address] [facility], [address], [place], [address], [facility] 07/11/2024 14:23:34 Date Recorded Body height Heart rate Oxygen saturation Oxygen saturation in Arterial blood by Pulse oximetry Provider Name and Address Organization Details Last Updated DateTime 07/21/2024 162.56 cm 78 /min 95 % 95 % NELDA MANSFIELD [address] [facility], [address], [place], [address] , [facility] 07/21/2024 15:42:40 Social History Question Answer Notes LastModified by Organizat ion Details LastModified Time Tobacco Smoking Status Former Smoker can't remember when she quit Ana Damon MD [address] [facility], [address], [place], [place], [address], [facility] 09/26/2021 19:09:18 Do You Have An Advance Directive? Yes Information not available 09/26/2021 What Is Your Code Status? DNR/DNI Information not available 09/25/2021 Where Do You Live? [facility]. Was Living With Son, But He Is Not Home During The Day. Information not available 05/29/2023 Legal Guardian? No Informati on not available 09/26/2021 Do You Have A Medical Power Of Credit Rating Inspector? Yes Invoked Information not available 09/26/2021 What [...] adjuvanted, quadrivalent, PF 05/21/2022 completed Dena maza, [facility] 08/17/2023 10:49:52 Influenza, adjuvanted, quadrivalent, PF 03/04/2023 completed Dena maza [facility] 08/17/2023 10:50:06 Past Encounters Encounter ID Performer Location Encounter Start Date Encounter Closed Date Diagnosis/Indication Diagnosis SNOMED-CT Code Diagnosis ICD10 Code Diagnosis Note [id number] BRYANNA URBANO NP [address] [address] 09/25/2021 09:13:56 09/30/2021 13:45:49 Severe pain 07056475 R52 fentanyl patch 50 mcgdilaudi d 1 mg q4hr prnprednis one 10 mg dailyrepos ition prnhospice consult and admission Osteoporosis 78822059 M8 1.0 methotrexa te 2.5 dronate 70 thursdaypred nisone 10 mg daily Osteoarthritis 840656655 M19.90 dilaudid 1 mg q4 hr prnfentany l 50 mcg patch Mixed anxi ety and depressive disorder 105501173 F41.8 wellbutrin xl 150 mg bid Hypothyroidism 63535140 E03.9 levothyrox ine 200 mcg daily Gastroesop hageal reflux disease without esophagitis 720132724 K21.9 omeprazole 40 mg daily Adult fail ure to thrive syndrome 854515295 R62.7 encourage po intake Fall W19.XXXA PT OT eval and treatfall precaution sfrequent safety checks Atrial fibrillation 4943 6004 I48.91 eliquis 5 mg bidlasix 40 mg daily Hyperlipidemia 81197978 E78.5 atorvastat in 40 mg daily [id number] Ana Damon MD [address] [place] [address] 09/26/2021 15:54:36 09/30/2021 14:03:56 Osteoporosis 48952678 M81.0 Will d/c alendronat e Osteoarthritis 953241411 M15.0 Unclear what she is on MTX for, if it's OA or pulmonary fibrosis.C ontinue methotrexa te 2.5 mg weekly.Chelsi n control as above. Mixed anxi ety and depressive disorder 152928695 F41.8 Continue wellbutrin xl 150 mg BID.Monito r mood. Hypothyroidism 50636843 E03.8 With elevated TSH, but nl FT4. Will leave dosing as is for now, bayron. since pt is transition ing to hospice.Co ntinue levothyrox ine 200 mcg qd.No further labs. Gastroesop hageal reflux disease without esophagitis 093848942 K21.9 Continue omeprazole 40 mg qd.Monitor sxs/ Adult fail ure to thrive syndrome 649576720 R62.7 Continue oral supplement s as able. fall W19.XXXA Unable to participat e in rehab.Cont infall precaution s.Monitor for safety. Atrial fibrillation 4943 6004 I48.0 Rate in good control on no rate controllin g meds.Leonora nue eliquis 5 mg BID for AC.Monitor HR and bleeding risk Hyperlipidemia 99334114 E78.49 Will d/c atorvastat inNo further labs Spinal roni nosis of lumbar region 87154695 M48.062 With continued distress, unclear how much is pain and how much is behavioral .Will start roxanol 5 mg q 4 hrs scheduled and q 1 hr prn. Hold for oversedati on.Continu e fentanyl patch 50 mcg q 72 hrs and dilaudid 1 mg q 4 hrs prnContinu e prednisone 10 mg qd.Hospice consult pending. [id number] MIKIE DUONG [address] [place] [address] 09/27/2021 10:49:34 09/30/2021 14:31:05 Mixed anxiety and depressive disorder 173208374 F41.8 wellbutrin xl 150 mg bid-pm dose is 50 mg a week decrease until donethen remeron can be startedris perdal 0.5 mg bidAIMs 0 Adult fail ure to thrive syndrome 320848869 R62.7 encourage po intakereme sonal 7.5 mg [id number] MIKIE DUONG [address] [place] [address] 09/30/2021 12:53:54 10/04/2021 13:57:38 Mixed anxiety and depressive disorder 471843238 F41.8 wellbutrin xl 150 mg bid-pm dose is 100 mg decrease for 7 days then discontinu ishan remeron can be startedris perdal 0.5 mg bid-decrea sed to 0.25 mg am, 0.5 mg hsAIMs 0 Adult fail ure to thrive syndrome 345539796 R62.7 encourage po intakereme sonal 7.5 mg hs when hs wellbutrin finished Spinal roni nosis of lumbar region 21767861 M48.062 fentanyl patch 50 mcg q72 daysdilaud id 1 mg q4hr prnprednis on 10 mg daily [id number] MD KAREEM Whitaker [address] [place] [address] 10/01/2021 19:18:36 10/04/2021 14:59:14 Spinal stenosis of lumbar region 77757073 M48.062 Continue fentanyl patch 50 mcg q 72 hrs and dilaudid 1 mg q 4 hrs prnContinu e prednisone 10 mg qd.Reconsi jeff hospice consult if pt. not able to tolerate med changes as below. Mixed anxi ety and depressive disorder 846879810 F41.8 Continue Wellbutrin 150 mg qAM and PM dose 100 mg until 10/08 then d/c pm doseStart mirtazapin e 7.5 mg qhs on 10/08Contin ue risperdal 0.25 mg qam and 0.5 mg qhsMonitor effect. Adult fail ure to thrive syndrome 616561837 R62.7 encourage po intakeStar t remeron 7.5 mg hs when hs wellbutrin finished as above. [id number] MIKIE DUONG [place] [address] [place] [address] 10/03/2021 10:04:53 10/09/2021 15:41:28 Adult failure to thrive syndrome 219562503 R62.7 encourage po intakereme sonal 7.5 mg hs when hs wellbutrin finished 10/08 Mixed anxi ety and depressive disorder 148148871 F41.8 wellbutrin xl 150 mg bid-pm dose is 100 mg decrease for 7 days then discontinu e 10/08then remeron can be startedris perdal 0.5 mg bid-decrea sed to 0.25 mg am, 0.5 mg hsAIMs 0 Severe pain 65682073 R52 fentanyl patch 50 mcgdilaudi d 1 mg q4hr prn-d/c due to lack of useprednis one 10 mg dailyrepos ition prnhospice consult and admissionr oxanol was d/c due to morphine allergy [id number] BRYANNA URBANO NP [address] [address] 10/09/2021 10:18:53 10/14/2021 14:25:24 Mixed anxiety and depressive disorder 788362664 F41.8 wellbutrin xl 150 mg bid-pm dose is 100 mg decrease for 7 days then discontinu e 10/08then remeron can be startedris perdal 0.5 mg hs-am dose d/cAIMs 0 Adult fail ure to thrive syndrome 286710070 R62.7 encourage po intakereme sonal 7.5 mg hs when hs wellbutrin finished 10/08 Severe pain 96011389 R52 fentanyl patch 50 mcgdilaudi d 1 mg q4hr prn-d/c due to lack of useprednis one 10 mg dailyrepos ition prnhospice consult and admissionr oxanol was d/c due to morphine allergy [id number] BRYANNA URBANO NP [address] [address] 10/11/2021 10:22:56 10/14/2021 15:05:22 Mixed anxiety and depressive disorder 352966269 F41.8 wellbutrin xl 150 mg bid-pm dose is 100 mg decrease for 7 days then discontinu e 10/08then remeron can be startedris perdal 0.5 mg hs-am dose d/cAIMs 0 Adult fail ure to thrive syndrome 562693700 R62.7 encourage po intakereme sonal 7.5 mg hs when hs wellbutrin finished 10/08 Severe pain 03777088 R52 fentanyl patch 50 mcgdilaudi d 1 mg q4hr prn-d/c due to lack of useprednis one 10 mg dailyrepos ition prnhospice consult and admissionr oxanol was d/c due to morphine allergy [id number] BRYANNA URBANO NP [address] [address] 10/14/2021 12:20:18 10/16/2021 14:26:14 Severe pain 50392227 R52 fentanyl patch 50 mcgprednis one 10 mg dailyrepos ition prnroxanol was d/c due to morphine allergy Mixed anxi ety and depressive disorder 407195627 F41.8 wellbutrin xl 150 mgremeron 7.5 mg dailyrispe rdal 0.5 mg hs-am dose d/cAIMs 0 Fall W19.XXXA PT OT eval and treatfall precaution sfrequent safety checks [id number] BRYANNA URBANO NP [address] [address] 10/16/2021 13:18:48 10/23/2021 10:49:11 Adult failure to thrive syndrome 503720397 R62.7 encourage po intakereme sonal 7.5 mg hs when hs wellbutrin finished 10/08 Mixed anxi ety and depressive disorder 065768338 F41.8 wellbutrin xl 150 mgremeron 7.5 mg dailyrispe rdal 0.5 mg hs-am dose d/cAIMs 0 Severe pain 14567952 R52 fentanyl patch 50 mcgprednis one 10 mg dailyrepos ition prnroxanol was d/c due to morphine allergy Edema 375106863 R60.9 lasix 40 mg daily will increase to bid for 7 days [id number] NELDA Gardiner [address] [address] 10/18/2021 11:22:25 10/23/2021 11:24:28 Adult failure to thrive syndrome 174092214 R62.7 Appetite improveden courage po intakereme sonal 7.5 mg QHSMonitor weights Mixed anxi ety and depressive disorder 422781463 F41.8 wellbutrin xl 150 mgremeron 7.5 mg dailyrispe rdal 0.5 mg hsMonitor moodPsych eval prn Severe pain 05108566 R52 fentanyl patch 50 mcgprednis one 10 mg dailyBack pain now well controlled Monitor Edema 257910829 R60.9 Lasix 40 mg BIDACE wraps BLEElevate legs as toleratedM onitor [id number] BRYANNA URBANO NP [address] [address] 10/21/2021 10:50:08 10/23/2021 11:52:29 Edema 578068187 R60.9 lasix 40 mg bidmetolaz one 2.5 mg tues, thursace wraps Severe pain 17150053 R52 fentanyl patch 50 mcgprednis one 10 mg dailyrepos ition prnroxanol was d/c due to morphine allergy [id number] BRYANNA URBANO NP [address] [address] 10/24/2021 10:43:36 10/29/2021 12:14:04 Edema 472979069 R60.9 lasix 40 mg bidmetolaz one 2.5 mg tues, thurs, add a dose sundayace wraps Adult fail ure to thrive syndrome 931493612 R62.7 encourage po intakereme sonal 7.5 mg hs Mixed anxi ety and depressive disorder 546214320 F41.8 wellbutrin xl 150 mgremeron 7.5 mg dailyrispe rdal 0.5 mg hs- decrease hs dose to 0.25 mgAIMs 0 [id number] BRYANNA URBANO NP [address] [address] 10/30/2021 10:59:13 11/05/2021 10:01:44 Adult failure to thrive syndrome 753151840 R62.7 encourage po intakereme sonal 7.5 mg hs Mixed anxi ety and depressive disorder 741140992 F41.8 wellbutrin xl 150 mgremeron 7.5 mg dailyrispe rdal 0.25 mg- discontinu eAIMs 0 Severe pain 49403509 R52 fentanyl patch 50 mcgprednis one 10 mg dailyrepos ition prnroxanol was d/c due to morphine allergy [id number] Ana Damon MD [address] [address] 11/19/2021 18:25:18 11/25/2021 15:04:26 Adult failure to thrive syndrome 596275733 R62.7 Doing much better. Wt. has been stable.Say s her appetite is good.Leonora nue mirtazapin e 7.5 mg qhs.Monito r wts. Mixed anxi ety and depressive disorder 472174802 F41.8 Mood good today.Cont inue wellbutrin XL 150 mg qd and mirtazapin e 7.5 mg qhsMonitor mood.Consu lt psych prn Severe pain 35308878 R52 Under good control on fentanyl patch 50 mcg q 3 days, prednisone 10 mg qd, and APAP prnRestart ing PT this week.Monit ro Edema 957713712 R60.0 Continue lasix 40 mg BID and metolazone 2.5 mg 2x/wk on & .Cont inue wilma wraps daily.Carmela tor Hypokalemia 88536758 E87 .6 With borderline low K+ for awhile. Has never been on K+ supplement .Will recheck next week and if still low will add KCL 10 meq qd.Monitor [id number] MIKIE DUONG [address] [place] [address] [place] [id number] 12/12/2021 10:09:42 12/17/2021 16:08:08 Adult failure to thrive syndrome 640313106 R62.7 Doing much better. Wt. has been stable.Say s her appetite is good.Leonora nue mirtazapin e 7.5 mg qhs.Monito r wts. Mixed anxi ety and depressive disorder 095845693 F41.8 Mood good today.well butrin XL 150 mg qd and mirtazapin e 7.5 mg qhsMonitor mood.Consu lt psych prn Severe pain 45900845 R52 Under good control on fentanyl patch 50 mcg q 3 days, prednisone 10 mg qd, and APAP prnRestart ing PT this week.Monit ro Edema 663142777 R60.0 lasix 40 mg BIDmetolaz one 2.5 mg 2x/wk on & .Cont inue wilma wraps daily.Carmela tor Hypokalemia 42523206 E87 .6 With borderline low K+ for awhile. Has never been on K+ supplement .Will recheck next week and if still low will add KCL 10 meq qd.Monitor Atrial fibrillation 4943 6004 I48.0 eliquis 5 mg bidlasix 40 mg bid daily Gastroesop hageal reflux disease without esophagitis 147131516 K21.9 omeprazole 40 mg daily Hyperlipidemia 53155356 E78.49 atorvastat in 40 mg daily Hypothyroidism 80758750 E03.8 levothyrox ine 200 mcg daily Osteoarthritis 627314032 M15.0 fentanyl 50 mcg patch q72 hr Osteoporosis 72542944 M8 1.0 methotrexa te 2.5 dronate 70 thursdaypred nisone 10 mg daily Spinal roni nosis of lumbar region 81250944 M48.062 fentanyl patch 50 mcg q72 hourspredn isone 10 mg daily Fall W19.XXXA PT OT eval and treatfall precaution sfrequent safety checks [id number] IMKIE DUONG [place] [address] [place] [address] rd [place] [address] 01/03/2022 14:55:57 01/06/2022 20:46:48 Pancreatitis 06275550 K85.90 monitor for symptomsmo nitor labs Adult fail ure to thrive syndrome 400743347 R62.7 Doing much better. Wt. has been stable.Say s her appetite is good.gary zapine 7.5 mg qhs.Monito r wts. Mixed anxi ety and depressive disorder 508319452 F41.8 Mood good today.well butrin XL 150 mg bidmirtaza pine 7.5 mg qhsMonitor mood.Consu lt psych prn Severe pain 79032097 R52 Under good control on fentanyl patch 50 mcg q 3 days,predn isone 10 mg qd,APAP 650 mg q4hr prnPT OT eval and treat prnMonitor Edema 620584154 R60.0 lasix 40 mg BIDmetolaz one 2.5 mg 2x/wk on & , thursday.Con tinue wilma wraps daily.Carmela tor Hypokalemia 89384865 E87 .6 With borderline low K+ for awhile. Has never been on K+ supplement .Monitor Atrial fibrillation 4943 6004 I48.0 eliquis 5 mg bidlasix 40 mg bid dailymetol azone 2.5 mg , , Gastroesop hageal reflux disease without esophagitis 903427066 K21.9 omeprazole 40 mg daily Hyperlipidemia 42958203 E78.49 atorvastat in 40 mg daily Hypothyroidism 14864820 E03.8 levothyrox ine 200 mcg daily Osteoarthritis 663148070 M15.0 fentanyl 50 mcg patch q72 hr Osteoporosis 39087026 M8 1.0 prednisone 10 mg daily Spinal roni nosis of lumbar region 53559736 M48.062 fentanyl patch 50 mcg q72 hourspredn isone 10 mg daily Fall W19.XXXA PT OT eval and treatfall precaution sfrequent safety checks [id number] BRYANNA URBANO NP [address] [address] 01/06/2022 10:28:02 01/09/2022 13:18:55 Edema 848063429 R60.0 lasix 40 mg BIDmetolaz one 2.5 mg 2x/wk on thursday.Con tinue wilma wraps daily.Carmela tor Pancreatitis 39675780 K8 5.90 monitor for symptomsmo nitor labs [id number] BRYANNA URBANO NP [address] [address] 01/08/2022 12:46:02 01/10/2022 16:30:00 Edema 933975007 R60.0 lasix 40 mg BIDmetolaz one 2.5 mg 2x/wk on thursday.Con tinue wilma wraps daily-comp ression stockingsM onitor Pancreatitis 07020576 K8 5.90 monitor for symptomsmo nitor labs [id number] BRYANNA URBANO NP [address] [address] 01/10/2022 11:53:05 01/14/2022 12:50:34 Hypothyroidism 66980493 E03.8 levothyrox ine 200 mcg daily-incr ease to 225 mcgrecheck tsh-free T4 in 6 weeks [id number] Ana Damon MD [address] [address] 02/11/2022 16:58:31 02/19/2022 16:14:54 Hypothyroidism 83296706 E03.8 Levothyrox ine was increased from 200 mcg qd to 225 mcg qd on 01/13 due to TSH of 12.24. Free T4 was WNL.Due for recheck of TSH and FT4 in a week or two. Adult fail ure to thrive syndrome 019794753 R62.7 Doesn't really have this dx anymore. Her wt. has been stable and her appetite is good.Leonora nue mirtazapin e 7.5 mg qhs.Monito r wts. Mixed anxi ety and depressive disorder 206603930 F41.8 Mood good today.Cont inue wellbutrin XL 150 mg qd and mirtazapin e 7.5 mg qhsMonitor mood.Psych following, may try a GDR. Edema 378180875 R60.0 Continue lasix 40 mg BID and metolazone 2.5 mg 2x/wk on & .Cont inue WILMA wraps qd.Monitor Chronic pancreatitis 235 310388 K86.1 Under good control on fentanyl patch 50 mcg q 3 days, prednisone 10 mg qd, and APAP 650 mg q 6 hrs prnMonitor . Generalize d osteoarthritis 346755877 M15.0 Pain control as above.Also diclofenac gel to shoulders BID and hands prn.Will add lidocaine patches to shoulders, low back and elbows as needed.PT/ OT as needed.Mon itor [id number] MIKIE DUONG [address] [address] 02/25/2022 11:22:33 03/10/2022 20:26:15 Hypothyroidism 50687595 E03.8 levothyrox ine 225 mcgrecheck tsh-free T4 in 6 weeks Spinal roni nosis of lumbar region 86398576 M48.062 fentanyl patch 50 mcg q72 hourspredn isone 10 mg daily [id number] MIKIE DUONG [place] [address] [place] [address] 03/28/2022 11:18:57 04/03/2022 10:05:40 Generalized osteoarthritis 983241024 M15.0 tramadol 25 mg q6hr prndiclofe nac gel to shoulders BID and hands prn.Will add lidocaine patches to shoulders, low back and elbows as needed.PT/ OT as needed.Mon itor Severe pain 70596142 R52 Under good control on fentanyl patch 50 mcg q 3 days,predn isone 10 mg qd,APAP 650 mg q4hr prnPT OT eval and treat prnMonitor [id number] BRYANNA URBANO, MIKIE [address] [place] [address] 04/04/2022 10:53:36 04/08/2022 15:25:03 Mixed anxiety and depressive disorder 793119275 F41.8 Mood good today.well butrin XL 150 mg bidmirtaza pine 7.5 mg qhsMonitor mood.Consu lt psych prn Severe pain 57252660 R52 fentanyl patch 50 mcg q 3 days,predn isone 10 mg qd,APAP 1000 mg tidtramado l 25 mg bid prnPT OT eval and treat prnMonitor Edema 551943268 R60.0 lasix 40 mg BIDmetolaz one 2.5 mg 2x/wk on & , thursday.Con tinue wilma wraps daily.Acrmela tor Hypokalemia 55242087 E87 .6 With borderline low K+ for awhile. Has never been on K+ supplement .Monitor Atrial fibrillation 4943 6004 I48.0 eliquis 5 mg bidlasix 40 mg bid dailymetol azone 2.5 mg , doan Gastroesop hageal reflux disease without esophagitis 512501022 K21.9 omeprazole 40 mg daily Hyperlipidemia 88491923 E78.49 monitor Hypothyroidism 17726000 E03.8 levothyrox ine 225 mcg daily Osteoarthritis 619388135 M15.0 fentanyl 50 mcg patch q72 hrAPAP 1000 mg tidtramado l 25 mg bid prnglucosa mine 500 mg tid Osteoporosis 26975895 M8 1.0 prednisone 10 mg daily Spinal roni nosis of lumbar region 34777886 M48.062 fentanyl patch 50 mcg q72 hourspredn isone 10 mg daily Fall W19.XXXA PT OT eval and treatfall precaution sfrequent safety checks Adult fail ure to thrive syndrome 618288909 R62.7 Doing much better. Wt. has been stable.Say s her appetite is good.gary zapine 7.5 mg qhs.Monito r wts. Generalize d osteoarthritis 752055267 M15.0 tramadol 25 mg bid prndiclofe nac gel to shoulders BID and hands prn.Will add lidocaine patches to shoulders, low back and elbowsgluc osamine 500 mg bidPT/OT as needed.Mon itor [id number] BRYANNA URBANO NP [address] [address] 04/10/2022 12:09:08 04/22/2022 16:17:48 Generalized osteoarthritis 891662138 M15.0 tramadol 25 mg bid prndiclofe nac gel to shoulders BID and hands prn.Will add lidocaine patches to shoulders, low back and elbowsgluc osamine 500 mg bidtizanad ine 2 mg bidPT/OT as needed.Mon itor Severe pain 52908475 R52 fentanyl patch 50 mcg q 3 days,predn isone 10 mg qd,APAP 1000 mg tiddiclofe nac gel and lido patchestiz anidine 2 mg bidtramado l 25 mg bid prnPT OT eval and treat prnMonitor [id number] BRYANNA URBANO NP [address] [address] 05/07/2022 10:29:27 05/09/2022 15:20:45 Pancreatitis 44668801 K85.90 monitor for symptomsmo nitor labs Mixed anxi ety and depressive disorder 247345342 F41.8 Mood good today.well butrin XL 150 mg bidmirtaza pine 7.5 mg qhsMonitor mood.Consu lt psych prn Severe pain 12303254 R52 fentanyl patch 50 mcg q 3 days,predn isone 10 mg qd,APAP 1000 mg tidtramado l 25 mg bid prnPT OT eval and treat prnMonitor Edema 592111059 R60.0 lasix 40 mg BIDmetolaz one 2.5 mg 2x/wk on & , thursday.Con tinue wilma wraps daily.Carmela tor Hypokalemia 45766908 E87 .6 With borderline low K+ for awhile. Has never been on K+ supplement .Monitor Atrial fibrillation 4943 6004 I48.0 eliquis 5 mg bid-on hold due to buttock bruiselasi x 40 mg bid dailymetol azone 2.5 mg , Gastroesop hageal reflux disease without esophagitis 592740043 K21.9 omeprazole 40 mg daily Hyperlipidemia 07732537 E78.49 monitor Hypothyroidism 85567298 E03.8 levothyrox ine 225 mcg daily Osteoarthritis 116242669 M15.0 fentanyl 50 mcg patch q72 hrAPAP 1000 mg tidtramado l 25 mg bid prnglucosa mine 500 mg tid Osteoporosis 32051350 M8 1.0 prednisone 10 mg daily Spinal roni nosis of lumbar region 88728105 M48.062 fentanyl patch 50 mcg q72 hourspredn isone 10 mg daily Fall W19.XXXA PT OT eval and treatfall precaution sfrequent safety checks Adult fail ure to thrive syndrome 823421605 R62.7 Doing much better. Wt. has been stable.Say s her appetite is good.gary zapine 7.5 mg qhs.Monito r wts. Generalize d osteoarthritis 295610318 M15.0 tramadol 25 mg bid prndiclofe nac gel to shoulders BID and hands prn.Will add lidocaine patches to shoulders, low back and elbowsgluc osamine 500 mg bidPT/OT as needed.Mon itor Contusion 229868847 T14. 8XXA monitor bruising for extension or lesseningh old eliquis [id number] Samina Wilburn MD [address] [address] 05/30/2022 07:35:26 06/04/2022 16:14:23 Chronic pain 80535020 G89.29 diclofenac gel 1% to shoulders bid, to both hands and spine prnfentany l patch 50 mcg q72 hsalonpas patch to right shoulder dailyAPAP 1000 mg tidtramado l 25 mg bidtizanid ine 2 mg bidprednis one 10 mg dailyPT/OT /PM&R prnwill monitor Mixed anxi ety and depressive disorder 678881113 F41.8 bupropion SR 150 mg dailymirta zapine 7.5 mg at hswill monitor Hypothyroidism 69495700 E03.8 levothyrox ine 225 mcg dailywill monitor Atrial fibrillation 4943 6004 I48.0 consider restart ACheld due to hematoma Type 2 russel betes mellitus 07978849 E11.9 insulin aspart per sliding scalewill monitor Edema 181420035 R60.0 furosemide 40 mg dailymetol azone 2.5 mg daily on T, Th, Sawill monitor Gastroesop hageal reflux disease without esophagitis 406669370 K21.9 omeprazole 40 mg bidwill monitor Recurrent pancreatitis 481365518 K86.1 fu GI prnlow fat dietwill monitor [id number] BRYANNA URBANO NP [address] [address] 07/21/2022 10:43:42 08/01/2022 13:30:09 COVID-19 242531151 U07.1 07/20 covid positiveen courage po food and fluidscons ider ivf for anorexiaco nsider paxlovid or decadron for symptomsse nd to ED for decompensa tion [id number] BRYANNA URBANO NP [address] [address] 07/23/2022 11:28:07 08/01/2022 14:08:08 COVID-19 990961908 U07.1 07/20 covid positiveen courage po food and fluidscons ider ivf for anorexiaco nsider paxlovid or decadron for symptomsse nd to ED for decompensa tion Chronic pain 06331145 G8 9.29 diclofenac gel 1% to shoulders bid, to both hands and spine prnfentany l patch 50 mcg q72 hsalonpas patch to right shoulder dailyAPAP 1000 mg tidtramado l 25 mg bidtizanid ine 2 mg bidprednis one 10 mg dailyPT/OT /PM&R prnwill monitor Mixed anxi ety and depressive disorder 058564915 F41.8 bupropion SR 150 mg dailymirta zapine 7.5 mg at hswill monitor Hypothyroidism 90688169 E03.8 levothyrox ine 225 mcg dailywill monitor Atrial fibrillation 4943 6004 I48.0 eliquis 2.5 mg bidmonitor for any hematomas Type 2 russel betes mellitus 22516275 E11.9 insulin aspart per sliding scalewill monitor Edema 367763268 R60.0 furosemide 40 mg dailymetol azone 2.5 mg daily on T, Th, Sawill monitor Gastroesop hageal reflux disease without esophagitis 035180173 K21.9 omeprazole 40 mg bidwill monitor Recurrent pancreatitis 726635742 K86.1 fu GI prnlow fat dietwill monitor [id number] BRYANNA URBANO NP [facility] [address] [place] [phone] 07/25/2022 10:22:57 08/01/2022 15:15:29 COVID-19 328237210 U07.1 07/20 covid positiveen courage po food and fluidscons ider ivf for anorexiaco nsider paxlovid or decadron for symptomsse nd to ED for decompensa tion [id number] BRYANNA URBANO NP [address] [address] 07/30/2022 11:27:21 08/01/2022 15:57:11 COVID-19 692687289 U07.1 07/20 covid positive-a symptomati c, recovered by dateencour age po food and fluidscons ider ivf for anorexiaco nsider paxlovid or decadron for symptomsse nd to ED for decompensa tion [id number] BRYANNA URBANO NP [address] [address] 07/31/2022 12:15:38 08/05/2022 18:21:58 COVID-19 186980132 U07.1 07/20 covid positive-a symptomati c, recovered by dateencour age po food and fluidscons ider ivf for anorexiaco nsider paxlovid or decadron for symptomsse nd to ED for decompensa tionCXR ordered for 07/31 Pancreatitis 96230874 K8 5.90 monitor for symptomsmo nitor labs [id number] BRYANNA URBANO NP [address] [address] 08/01/2022 11:59:17 08/06/2022 08:14:07 COVID-19 812489667 U07.1 07/20 covid positive-a symptomati c, recovered by dateencour age po food and fluidscons ider ivf for anorexiaco nsider paxlovid or decadron for symptomsse nd to ED for decompensa tionCXR ordered for 07/31-negati ve for chf or pna [id number] MIKIE Dasilva [address] [place] [phone] 08/09/2022 10:30:12 08/13/2022 13:00:41 COVID-19 343076365 U07.1 resolved- no new treatment in hospital documentof f isolation precaution scovid rapid negative in facility on 08/09/22 per nursingmon itor for sequelae note: 07/20 covid positive-a symptomati c, recovered by dateencour age po food and fluidscons ider ivf for anorexiaco nsider paxlovid or decadron for symptomsse nd to ED for decompensa tionCXR ordered for 07/31-negati ve for chf or pna Pancreatitis 75905882 K8 5.90 was treated with ivf, medication s, and pain adjuncts- now improvedmo nitor for symptomsav oid fatty foods on low fat dietmonito r labs Chronic pain 35538360 G8 9.29 contdiclof enac gel 1% to shoulders bid, to both hands and spine prnfentany l patch 50 mcg q72 hsalonpas patch to right shoulder dailyAPAP 1000 mg tidtramado l 25 mg bidtizanid ine 2 mg bidprednis one 10 mg dailyPT/OT for weakness and painwill monitor Recurrent pancreatitis 099478483 K86.1 fu GI prnlow fat dietwill monitor Dislocatio n of shoulder joint 367045289 S43.004A pt has right shoulder dislocatio ncontinue pain meds as belowsling and swath as toleratedp assive romPT/OTfu with Dr Velasquez outptmonit or for cms, pulses, disclorati on [id number] MIKIE DUONG [address] [place] [address] 08/11/2022 10:07:53 08/13/2022 13:35:33 Pancreatitis 05676764 K85.90 monitor for symptomsmo nitor labswas treated with ivf, medication s, and pain adjuncts- now improvedmo nitor for symptomsav oid fatty foods on low fat diet Dislocatio n of shoulder joint 825789040 S43.004A pt has chronic right shoulder dislocatio ncontinue pain medssling and swath as toleratedp assive romPT/OTfu with Dr Velasquez outptmonit or for cms, pulses, disclorati on [id number] MIKIE DUONG [place] [address] [place] [address] 08/25/2022 11:17:28 08/27/2022 14:05:17 Pancreatitis 25729203 K85.90 monitor for symptomsmo nitor labswas treated with ivf, medication s, and pain adjuncts- now improvedmo xifloxin 400 mg daily x4 daysmonito r for symptoms avoid fatty foods on low fat diet Dislocatio n of shoulder joint 241459178 S43.004A pt has chronic subluxatio n right shoulder dislocatio ncontinue pain meds as belowsling and swath as toleratedp assive romPT/OTfu with Dr Velasquez outptmonit or for cms, pulses, disclorati on Chronic pain 69740620 G8 9.29 contdiclof enac gel 1% to shoulders bid, to both hands and spine prnfentany l patch 50 mcg q72 hsalonpas patch to right shoulder dailyAPAP 1000 mg tidtramado l 25 mg bidtizanid ine 2 mg bidprednis one 10 mg dailyPT/OT for weakness and painwill monitor COVID-19 364667320 U07.1 resolved- no new treatment in hospital documentof f isolation precaution scovid rapid negative in facility on 08/09/22 per nursingmon itor for sequelae note: 07/20 covid positive-a symptomati c, recovered by dateencour age po food and fluidscons ider ivf for anorexiaco nsider paxlovid or decadron for symptomsse nd to ED for decompensa tionCXR ordered for 07/31-negati ve for chf or pna Recurrent pancreatitis 524196300 K86.1 f/u GI prnlow fat dietwill monitor [id number] BRYANNA URBANO NP KAREEM [facility] [place] [address] 09/04/2022 10:39:19 09/08/2022 15:11:55 Dislocation of shoulder joint 751646719 S43.004A pt has chronic subluxatio n right shoulder dislocatio ncontinue pain meds as belowsling and swath as tolerated for comfort prnPT/Edilson/ u with Dr Velasquez outptmonit or for cms, pulses, disclorati on Mixed anxi ety and depressive disorder 208348971 F41.8 bupropion SR 150 mg dailymirta zapine 7.5 mg at hswill monitor [id number] Samina Wilburn MD [address] [place] [phone] 10/01/2022 10:06:00 10/03/2022 11:00:52 Atrial fibrillation 52241282 I48.0 apixaban 2.5 mg bidwill monitor Recurrent pancreatitis 440231883 K86.1 fu GIlow fat dietwill monitor Gastroesop hageal reflux disease without esophagitis 837745586 K21.9 omeprazole 40 mg bidwill monitor Type 2 russel betes mellitus 98064148 E11.9 insulin aspart per sliding scalewill monitor Chronic pain 03757691 G8 9.29 diclofenac gel 1% to shoulders bid, to both hands and spine prnfentany l patch 50 mcg q72 hsalonpas patch to right shoulder dailyAPAP 1000 mg tidtramado l 25 mg bidtizanid ine 2 mg bidprednis one 10 mg dailyPT/OT /PM&R prnwill monitor Peripheral edema 2622397 00 R60.0 metolazone 2.5 mg , Th, Sufurosemi de 40 mg bidwill monitor Hypothyroidism 54929638 E03.8 levothyrox ine 225 mcg dailywill monitor Mixed anxi ety and depressive disorder 769631936 F41.8 bupropion SR 150 mg dailymirta zapine 7.5 mg at hstizanidi ne 2 mg bidwill monitor Essential hypertension 89120142 I10 metolazone 2.5 mg daily on , , Safurosemi de 40 mg bidwill monitor [id number] BRYANNA URBANO NP [address] [place] [phone] 10/15/2022 14:06:21 10/20/2022 14:25:22 Atrial fibrillation 90193016 I48.0 apixaban 2.5 mg bidwill monitor Recurrent pancreatitis 580424939 K86.1 fu GIlow fat dietwill monitor Gastroesop hageal reflux disease without esophagitis 538307041 K21.9 omeprazole 40 mg bidwill monitor Type 2 russel betes mellitus 63860117 E11.9 insulin aspart per sliding scalewill monitor Chronic pain 10587409 G8 9.29 diclofenac gel 1% to shoulders bid, to both hands and spine prnfentany l patch 50 mcg q72 hsalonpas patch to right shoulder dailyAPAP 1000 mg tidtramado l 25 mg bidtizanid ine 2 mg bidprednis one 10 mg dailyPT/OT /PM&R prnwill monitor Peripheral edema 6891913 00 R60.0 metolazone 2.5 mg , , Sufurosemi de 40 mg bidwill monitor Hypothyroidism 57372216 E03.8 levothyrox ine 225 mcg dailywill monitor Mixed anxi ety and depressive disorder 335952306 F41.8 bupropion SR 150 mg dailymirta zapine 7.5 mg at hstizanidi ne 2 mg bidwill monitor Essential hypertension 43174439 I10 metolazone 2.5 mg daily on , , Safurosemi de 40 mg bidwill monitor [id number] MIKIE DUONG [address] [place] [address] 11/28/2022 13:21:24 12/03/2022 17:20:32 Atrial fibrillation 28960604 I48.0 apixaban 2.5 mg bidwill monitor Recurrent pancreatitis 636448397 K86.1 f/u GIlow fat dietwill monitor Gastroesop hageal reflux disease without esophagitis 299105591 K21.9 omeprazole 40 mg bidwill monitor Type 2 russel betes mellitus 71611410 E11.9 insulin aspart per sliding scalewill monitor Chronic pain 66491104 G8 9.29 diclofenac gel 1% to shoulders bid, to both hands and spine prnfentany l patch 50 mcg q72 hsalonpas patch to right shoulder dailyAPAP 1000 mg tidtramado l 25 mg bidtizanid ine 2 mg bidprednis one 10 mg dailyPT/OT /PM&R prnwill monitor Peripheral edema 0173070 00 R60.0 metolazone 2.5 mg , Th, Sufurosemi de 40 mg bidwill monitor Hypothyroidism 03838345 E03.8 levothyrox ine 225 mcg dailywill monitor Mixed anxi ety and depressive disorder 590102427 F41.8 bupropion SR 150 mg dailymirta zapine 7.5 mg at hstizanidi ne 2 mg bidwill monitor Essential hypertension 70870415 I10 metolazone 2.5 mg daily on , , Safurosemi de 40 mg bidwill monitor [id number] BRYANNA URBANO NP [address] [address] 01/14/2023 14:00:23 01/16/2023 15:25:27 Mixed anxiety and depressive disorder 173441707 F41.8 bupropion SR 150 mg dailymirta zapine 7.5 mg at hstizanidi ne 2 mg bidwill monitor Severe pain 66647186 R52 fentanyl patch 50 mcg q 3 days,predn isone 10 mg qd,APAP 1000 mg tidtramado l 25 mg bid prnPT OT eval and treat prnMonitor Fall W19.XXXA PT OT eval and treatfall precaution sfrequent safety checks [id number] Samina Wilburn MD [address] [phone] 02/11/2023 10:06:26 02/13/2023 16:03:58 Mixed anxiety and depressive disorder 469563226 F41.8 bupropion SR 150 mg dailymirta zapine 7.5 mg at hswill monitor Atrial fibrillation 4943 6004 I48.0 apixaban 2.5 mg bidwill monitor Type 2 russel betes mellitus 93719556 E11.9 insulin aspart per sliding scalewill monitor Chronic pain 59701293 G8 9.29 diclofenac gel 1% to shoulders bid, to both hands and spine prnfentany l patch 50 mcg q72 hsalonpas patch to right shoulder dailyAPAP 1000 mg tidtramado l 25 mg bidtizanid ine 2 mg bidprednis one 10 mg dailyPT/OT /PM&R prnwill monitor Gastroesop hageal reflux disease without esophagitis 074449869 K21.9 omeprazole 40 mg bidwill monitor Hypothyroidism 86268231 E03.8 levothyrox ine 225 mcg dailywill monitor Edema 177462492 R60.0 furosemide 40 mg dailymetol azone 2.5 mg daily on T, , Sawill monitor [id number] MD KAREEM Whitaker [address] [place] [id number] 03/20/2023 20:34:03 03/23/2023 14:49:16 Ecchymosis present 647233907 S80.02XA Probably bumped it and doesn't remember, no pain, so no tx needed.Mon itor for resolution and monitor for new ecchymoses . Nausea 764944850 R11.0 Mild, periodic and chronic.Wi ll start Zofran 4 mg q 6 hrs prnMonitor sxs. Chronic neck pain 870835 8115 107 M54.2 Already on multiple pain meds.Will start lidocaine patch to neck prn, pt. says it only hurts sometimes, so doesn't want it scheduled. Continue fentanyl patch 50 mcg q 72 hrs, APAP 1000 mg TID,tramad ol 25 mg BID,tizani dine 2 mg BID andprednis one 10 mg qd.Monitor sxs. [id number] BRYANNA URBANO NP [address] [place] [id number] 04/03/2023 16:33:21 04/10/2023 09:59:49 Mixed anxiety and depressive disorder 024462855 F41.8 bupropion SR 150 mg dailymirta zapine 7.5 mg at hswill monitor Atrial fibrillation 4943 6004 I48.0 apixaban 2.5 mg bidwill monitor Type 2 russel betes mellitus 53512587 E11.9 insulin aspart per sliding scalewill monitor Chronic pain 95456656 G8 9.29 fentanyl patch 50 mcg q72 hsalonpas patch to right shoulder dailyAPAP 1000 mg tidtramado l 25 mg bidtizanid ine 2 mg bidprednis one 10 mg dailyPT/OT /PM&R prnwill monitor Gastroesop hageal reflux disease without esophagitis 100722383 K21.9 omeprazole 40 mg bidwill monitor Hypothyroidism 43890777 E03.8 levothyrox ine 225 mcg dailywill monitor Edema 488040265 R60.0 furosemide 40 mg dailymetol azone 2.5 mg daily on , , Sawill monitor [id number] MD KAREEM Whitaker [address] [place] [address] 05/29/2023 18:52:13 06/12/2023 13:46:31 Mixed anxiety and depressive disorder 995114221 F41.8 Mood good tonight.Co ntinue bupropion SR 150 mg qd and mirtazapin e 7.5 mg qhsMonitor mood.Psych follows Atrial fibrillation 4943 6004 I48.0 Rate in good control on no rate controllin g meds.Leonora nue eliquis 2.5 mg BID for AC.Monitor HR and bleeding risk. Type 2 russel betes mellitus 93723391 E11.9 Last HgA1C 7.6 in 03/2022.Sug ars in adequate control on diet control with occ. SSI.Monito r fingerstic ks TID, due for recheck of HgA1C, forgot to order. Chronic pain 95717097 G8 9.29 Will add diclofenac gel for hands BID.Contin ue fentanyl patch 50 mcg q 72 hrs, salonpas patch to right shoulder qd, APAP 1000 mg TID, tramadol 25 mg BID, tizanidine 2 mg BID, and prednisone 10 mg qd.Continu e rehab as able.Monit or sxs. Gastroesop hageal reflux disease without esophagitis 032621359 K21.9 No current sxs.Contin ue omeprazole 40 mg BID.Monito r sxs Hypothyroidism 16525128 E03.8 TSH WNL.Contin ue levothyrox ine 225 mcg qdMonitor TSH yearly. Edema 331177089 R60.0 At baseline.C ontinue furosemide 40 mg qd and metolazone 2.5 mg qd on , , SaMonitor sxs. [id number] MIKIE DUONG [address] [facility] [place] [address] 06/29/2023 12:07:31 07/07/2023 18:16:09 Fall 6473063 W19.XXXA PT OT eval and treatfall precaution sfrequent safety checks Contusion of face 106405 004 S00.83XA monitor neurosmoni tor for any signs of infectionm onitor for resolution of the bruising [id number] BRYANNA URBANO NP [address] [address] 07/01/2023 12:23:08 07/07/2023 19:15:00 Contusion of face 447265004 S00.83XA monitor neurosmoni tor for any signs of infectionm onitor for resolution of the bruising Edema 430252462 R60.0 furosemide 40 mg dailymetol azone 2.5 mg daily on T, Th, Sawill monitor [id number] BRYANNA URBANO NP [address] [address] 07/24/2023 12:53:42 08/04/2023 13:25:11 Contusion of face 869841835 S00.83XA resolvedmo nitor neurosmoni tor for any signs of infectionm onitor for resolution of the bruising Edema 141348612 R60.0 furosemide 40 mg dailymetol azone 2.5 mg daily on T, Th, Sawill monitor Fall W19.XXXA PT OT eval and treatfall precaution sfrequent safety checks Mixed anxi ety and depressive disorder 216948787 F41.8 bupropion SR 150 mg dailymirta zapine 7.5 mg at hswill monitor Atrial fibrillation 4943 6004 I48.0 apixaban 2.5 mg bidwill monitor Type 2 russel betes mellitus 36155674 E11.9 insulin aspart per sliding scalewill monitor Chronic pain 79122782 G8 9.29 fentanyl patch 50 mcg q72 hsalonpas patch to right shoulder dailyAPAP 1000 mg tidtramado l 25 mg bidtizanid ine 2 mg bidprednis one 10 mg dailyPT/OT /PM&R prnwill monitor Gastroesop hageal reflux disease without esophagitis 454942060 K21.9 omeprazole 40 mg bidwill monitor Hypothyroidism 50724644 E03.8 levothyrox ine 225 mcg dailywill monitor [id number] NELDA MANSFIELD [address] [address] 09/03/2023 09:01:19 09/08/2023 15:59:59 Dry skin dermatitis 901729119 L85.3 see hpireports intermitte nt itchiness at timesfluid s encouraged Apply moisturize r to skin BIDhydorco rtisone cream TID prn 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 not appreciate d on examwarm salt water rinses QID prngood oral hygiene encourageb arcos teeth after mealschlor hexidine mouth wash qd and HS Toothache 84030108 K08.8 9 [id number] Samina Wilburn MD [address] [address] 09/23/2023 08:31:39 09/29/2023 10:26:59 Mixed anxiety and depressive disorder 926109886 F41.8 bupropion SR 150 mg dailymirta zapine 7.5 mg at hswill monitor Chronic pain 99233046 G8 9.29 diclofenac gel 1% to shoulders daily in eveningfen tanyl patch 50 mcg q72 hLidocaine patch to right shoulder and neck dailyAPAP 1000 mg tidtramado l 25 mg bidtizanid ine 2 mg bidprednis one 10 mg dailyPT/OT /PM&R prnwill monitor Atrial fibrillation 4943 6004 I48.0 apixaban 2.5 mg bidwill monitor Type 2 russel betes mellitus 06202193 E11.9 insulin aspart per sliding scalewill monitor Hypothyroidism 87848221 E03.8 levothyrox ine 225 mcg dailywill monitor Gastroesop hageal reflux disease without esophagitis 834693017 K21.9 omeprazole 40 mg bidwill monitor Edema 848672997 R60.0 furosemide 40 mg dailymetol azone 2.5 mg daily on T, , Sawill monitor Chronic dermatitis 18657 007 L20.89 d/c compressio n stockingst riamcinolo ne cream bidelevate d legswill monitor [id number] NELDA MANSFIELD [address] [address] 09/24/2023 08:15:25 10/01/2023 11:35:02 Fall 1854320 W19.XXXA see hpiPT/OT eval and tx per facility protocolmi nimize fall risknursin g to educate pt on making sure wheelchair is in lock position and front wheels are facing forward before getting up out of chair. Contusion 601110928 T14. 8XXA Patient hit her right almanza against bed frame when she fell forwardnot ed with mild tenderness on eliquismon itor right almanza bruise for healing [id number] NELDA MANSFIELD [address] [address] 10/13/2023 10:07:38 10/15/2023 15:15:36 Neuropathy 822858815 G62.9 bilateral lower extremity calf with tingling pain and tenderness she is not experience any pain relief with current pain medication spatient agrees to try gabapentin times one dose 100mg she will update nursing if she experience relief. Fatigue 34612222 R53.83 appears tirediron studies, tsh, t4, bmp and cbc, vit D and Vit B levels orderedwil l r/o UTI as well. Type 2 russel betes mellitus 18119294 E11.9 currently on lispro SSC will adjust coveragere cently added lantus 10 units10/12 increased lantus to 15 units Hypothyroidism 79344006 E03.8 levothyrox ine 225 mcg dailyord TSH, T4 for 10/13 [id number] NELDA MANSFIELD [address] [address] 10/19/2023 13:21:25 10/22/2023 12:31:39 Vitamin D deficiency 81092562 E55.9 VIt D level 22start cholecacif telly 1000 unit dailyreche ck Vitamin D level in 3-4 months Neuropathy 807060243 G62 .9 today she tells me that she has a postive effect with gabapentin and would like to continue, she has not had any pain.will scheduled gabapentin 100 mg BID Q12 Type 2 russel betes mellitus 34427405 E11.9 currently on lispro SSC will adjust coveragere cently added lantus 10 units10/12 increased lantus to 15 units3/25: FS have improved Hypothyroidism 52881177 E03.8 levothyrox ine 225 mcg dailyord TSH, T4 for 10/13 Pending Dry skin dermatitis 2600 64943 L85.3 posterior calf noted with red patchy areas that are dry and flakyrefus ed rx cream recommende d, prefer and has been using -goldbond creamuses her own with good effect per patient.wi monitor. [id number] NELDA MANSFIELD [address] [address] 10/30/2023 21:18:42 11/02/2023 15:19:50 Type 2 diabetes mellitus 25678032 E11.9 continue lispro SSCcontinu e lantus 15 unitsmonit or FS TID Hypothyroidism 88092025 E03.8 levothyrox ine decreased to 175 mcgTSH 0.1 T4 normal rangerepea t labs in 6 weeks Abdominal pain 51519493 R10.9 see hpicontinu e zofran prn for nauseaplan robin upcoming EGD. [id number] NELDA MANSFIELD [address] [address] 11/04/2023 10:45:41 11/16/2023 16:04:21 Type 2 diabetes mellitus 58673965 E11.9 continue lispro SSCcontinu e lantus 15 unitsmonit or FS TID Hypothyroidism 49967794 E03.8 levothyrox ine decreased to 175 mcgTSH 0.1 T4 normal rangerepea t labs in 6 weeks Abdominal pain 11790001 R10.9 see hpicontinu e zofran prn for nauseaEGD unremarkab le Urinary tr act infectious disease 44021598 N39.0 10/21: postive UAstart levofloxac in 250 mg for 5 daysstart probiotic 1 tab bid for 10 daysincrea se oral hydration. [id number] NELDA MANSFIELD [address] [address] 11/19/2023 10:42:12 11/27/2023 15:22:30 Type 2 diabetes mellitus 77733858 E11.9 continue lispro SSCcontinu e lantus 15 unitsmonit or FS TID Hypothyroidism 68175798 E03.8 levothyrox ine decreased to 175 mcgTSH 0.1 T4 normal rangerepea t labs in 6 weeks Abdominal pain 27724787 R10.9 see hpicontinu e zofran prn for nauseaEGD unremarkab le Urinary tr act infectious disease 28507837 N39.0 3/28: postive UAstart levofloxac in 250 mg for 5 daysstart probiotic 1 tab bid for 10 daysincrea se oral hydration. Mixed anxi ety and depressive disorder 220566616 F41.8 bupropion SR 150 mg dailymirta zapine 7.5 mg at hswill monitor Chronic pain 15395988 G8 9.29 diclofenac gel 1% to shoulders daily in eveningfen tanyl patch 50 mcg q72 hLidocaine patch to right shoulder and neck dailyAPAP 1000 mg tidtramado l 25 mg bidtizanid ine 4 mg bidprednis one 10 mg dailyPT/OT /PM&R prnwill monitor Atrial fibrillation 4943 6004 I48.0 continue apixaban 2.5 mg bid Gastroesop hageal reflux disease without esophagitis 843537581 K21.9 omeprazole 40 mg bidcontinu e zofran 4 mg q6 prn Edema 021311655 R60.0 continue furosemide 40 mg dailyconti nue metolazone 2.5 mg daily on , , Eczema 92203444 L30.9 triamcinol one 0.1 % cream BID Dyspnea 109753797 R06.00 continue albuterol inhaler prn for shortness of breath Osteoarthritis 800429121 M15.0 lidocaine patch right shoulder.f entanyl 50 mcg patch q72 hrAPAP 1000 mg tidtramado l 25 mg bid prnglucosa mine 500 mg tid Chronic neck pain 427725 3427 107 M54.2 continue gabapentin 100 mg BID Neuropathy 474511608 G62 .9 continue gabapentin 100 mg BID. 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 [id number] [facility]ANS[facility] [address] [place] [address] [facility] [id number] 11/26/2023 18:58:29 12/01/2023 10:07:02 Pain of left heel 7435623092 733049 M79.672 skin prep to bilateral heels BIDoff load heels on pillow when in bedmonitor for worsening sx.Risk factor discussed diabetes ,immobilit y, age [id number] NELDA MANSFIELD [address] [place] [address] 12/14/2023 08:12:26 12/17/2023 13:25:50 Eczema 02229908 L30.9 bilateral lower extremitie s rash with scattered patches dry and redhx chronic edema, there is potential for weeping/oo zingtriamc inolone 0.1 % cream BIDmoistur izes legs daily Pain in right heel 38269 88609 676406 M79.671 right heel red and boggywill add skin prep BIDoffload heels when in bedwear socks with shoes Neuropathy 413023862 G62 .9 reports increasing bilateral leg painwill increase gabapentin to 200 mg BID and re assess for inprovemen t. [id number] NELDA MANSFIELD [address] [place] [address] 01/12/2024 12:10:02 01/13/2024 16:55:18 Easy bruising 245323578 R58 reddish mid upper chest bruising, skin intactshe is noted with scattered bruising on shoulder as well.she takes eliquis and prednisone , diuretic dailywill continue to monitor.wi ll check iron studies and VIT D on next lab day. Hypothyroidism 19760004 E03.8 continue levothyrox ine 175 mcgTSH now 1.74contin ue to monitor. [id number] Ana Damon MD [address] [place] [id number] 02/01/2024 21:46:09 02/17/2024 11:18:25 Chronic pain 67023332 G89.29 Remains at baseline.C ontinue fentanyl patch 50 mcg q 72 hrs, salonpas patch to right shoulder qd, APAP 1000 mg TID, tramadol 25 mg BID, tizanidine 2 mg BID, and prednisone 10 mg qd.Continu e rehab as able.Monit or sxs. 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 Type 2 russel betes mellitus 17688782 E11.9 Last HgA1C 7.6 in 03/2022.Sug ars in adequate control on diet control with occ. SSI.Monito r fingerstic ks TID, due for recheck of HgA1C, forgot to order. Gastroesop hageal reflux disease without esophagitis 137624486 K21.9 No current sxs.Contin ue omeprazole 40 mg BID.Monito r sxs Hypothyroidism 64717556 E03.8 TSH WNL.Contin ue levothyrox ine 225 mcg qdMonitor TSH yearly. Edema 610809248 R60.0 Marked tonight.Co ntinue furosemide 40 mg qd and metolazone 2.5 mg qd on , , SaMonitor sxs. Eczema 82065627 L30.9 Much improved.C ontinue triamcinol one 0.1 % cream BID and house moisturize r qdMonitor Neuropathy 727187656 G62 .89 Gabapentin was increased to 200 mg BID on 12/14/23Som e improvemen t since then.Leonora nue other pain meds as above also.Monit or. [id number] MIKIE SCALES [place] [address] [place] [address] [place] [facility] [id number] 02/18/2024 11:02:37 02/20/2024 09:33:35 Edema 982160000 R60.0 Suspecting more may be going on, [...] nFurther work up as indicated Chronic pain 22850107 G8 9.29 Remains at baseline.C ontinue fentanyl patch 50 mcg q 72 hrs, salonpas patch to right shoulder qd, APAP 1000 mg TID, tramadol 25 mg BID, tizanidine 2 mg BID, and prednisone 10 mg qd.Continu e rehab as able.Monit or sxs. Mixed anxi ety and depressive disorder 483221748 F41.8 Mood goodContin ue bupropion SR 150 mg qd and mirtazapin e 7.5 mg qhsMonitor mood.Psych follows Atrial fibrillation 4943 6004 I48.0 Rate remains in good control on no rate controllin g meds.Leonora nue eliquis 2.5 mg BID for AC.Monitor HR and bleeding risk. Type 2 russel betes mellitus 22384980 E11.9 Last HgA1C 7.6 in 03/2022.Sug ars in adequate control on diet control with occ. SSI.Monito r fingerstic ks TID, due for recheck of HgA1C, forgot to order. Gastroesop hageal reflux disease without esophagitis 579178488 K21.9 No current sxs.Contin ue omeprazole 40 mg BID.Monito r sxs Hypothyroidism 71027577 E03.8 TSH WNL.Contin ue levothyrox ine 225 mcg qdMonitor TSH yearly. Eczema 75525582 L30.9 Much improved.C ontinue triamcinol one 0.1 % cream BID and house moisturize r qdMonitor Neuropathy 824902551 G62 .89 Gabapentin was increased to 200 mg BID on 12/14/23Som e improvemen t since then.Leonora nue other pain meds as above also.Monit or. Candidiasis of mouth 797 80546 B37.0 Aranda plaque on tongue.Voi ce hoarse, ? if also esophageal Nystatin Swish and swallow 5 ml qid x 30 daysMainta in oral hygeine, brush tongue Dental caries 67828932 K 02.9 Planning for teeth # 29 and 31 extraction s.Will hold clearance for now until fluid balance figured out.Will hold basaglar insulin the night before procedureW ill hold eliquis the day before and the day of procedureD oes not appear abx. proph. is warrantedC ardiac risk currently low for dental extraction s. Hypokalemia 40953419 E87 .6 K 3.1 on labs 02/16/24Pla n as above [id number] BRYAN BERNARDO, NELDA HAYNES [address] [place] [address] 02/23/2024 11:06:51 02/24/2024 15:45:14 Edema 7[address]44636 R60.[address] xray did not show [...] restrictio nFurther work up as indicated Hypokalemia 43022938 E87 .6 02/21:Impro thomas 3.4continu e kcl 30 meq daily. Chronic pain 33232864 G8 9.29 Remains at baseline.C ontinue fentanyl patch 50 mcg q 72 hrs, salonpas patch to right shoulder qd, APAP 1000 mg TID, tramadol 25 mg BID, tizanidine 2 mg BID, and prednisone 10 mg qd.Continu e rehab as able.Monit or sxs. Mixed anxi ety and depressive disorder 607971860 F41.8 Mood goodContin ue bupropion SR 150 mg qd and mirtazapin e 7.5 mg qhsMonitor mood.Psych follows Atrial fibrillation 4943 6004 I48.0 Rate remains in good control on no rate controllin g meds.Leonora nue eliquis 2.5 mg BID for AC.Monitor HR and bleeding risk. Type 2 russel betes mellitus 06827224 E11.9 Last HgA1C 7.6 in 03/2022.Sug ars in adequate control on diet control with occ. SSI.Monito r fingerstic ks TID, due for recheck of HgA1C, forgot to order. Gastroesop hageal reflux disease without esophagitis 828829712 K21.9 No current sxs.Contin ue omeprazole 40 mg BID.Monito r sxs Hypothyroidism 08789633 E03.8 TSH WNL.Contin ue levothyrox ine 225 mcg qdMonitor TSH yearly. Eczema 07823789 L30.9 Much improved.C ontinue triamcinol one 0.1 % cream BID and house moisturize r qdMonitor Neuropathy 508986310 G62 .89 Gabapentin was increased to 200 mg BID on 12/14/23Som e improvemen t since then.Leonora nue other pain meds as above also.Monit or. Pneumonia 215664190 J18. 9 02/17: chest xray showed bilateral [...] rage fluid hydration. Vitamin D deficiency 347 12847 E55.9 12/06:Vit D level 20.4 - this is lower than previous levelwas taking cholecalci ferol 1000 unit daily -will increases to 50,000 unit weekly on thursday.patricia parkinson recheck in 2 months. [id number] NELDA MANSFIELD [facility] [address] [place] [address] [place] [id number] 02/25/2024 10:46:10 02/29/2024 16:18:54 Edema 815847841 R60.[address] xray did not show [...] restrictio nFurther work up as indicated Hypokalemia 37808497 E87 .6 02/21:Impro thomas 3.4continu e kcl 30 meq daily. Chronic pain 54877278 G8 9.29 Remains at baseline.C ontinue fentanyl patch 50 mcg q 72 hrs, salonpas patch to right shoulder qd, APAP 1000 mg TID, tramadol 25 mg BID, tizanidine 2 mg BID, and prednisone 10 mg qd.Continu e rehab as able.Monit or sxs. Mixed anxi ety and depressive disorder 451931274 F41.8 Mood goodContin ue bupropion SR 150 mg qd and mirtazapin e 7.5 mg qhsMonitor mood.Psych follows Atrial fibrillation 4943 6004 I48.0 Rate remains in good control on no rate controllin g meds.Leonora nue eliquis 2.5 mg BID for AC.Monitor HR and bleeding risk. Type 2 russel betes mellitus 54643731 E11.9 Last HgA1C 7.6 in 03/2022.Sug ars in adequate control on diet control with occ. SSI.Monito r fingerstic ks TID, due for recheck of HgA1C, forgot to order. Gastroesop hageal reflux disease without esophagitis 975554386 K21.9 No current sxs.Contin ue omeprazole 40 mg BID.Monito r sxs Hypothyroidism 70428651 E03.8 TSH WNL.Contin ue levothyrox ine 225 mcg qdMonitor TSH yearly. Eczema 92591079 L30.9 Much improved.C ontinue triamcinol one 0.1 % cream BID and house moisturize r qdMonitor Neuropathy 850021364 G62 .89 Gabapentin 200 mg BIDreports bilateral lower extremity pain- noted with swelling >in LLE than RLE-awaiti ng ultrasound to r/o DVT. due to be done today at 3 pmPt willing to try diclofenac gel for lower extremity to see it helps with pain. Pneumonia 069335501 J18. 9 02/17: chest xray showed bilateral [...] rage fluid hydration. Vitamin D deficiency 347 40177 E55.9 12/06:Vit D level 20.4 - this is lower than previous levelwas taking cholecalci ferol 1000 unit daily -will increases to 50,000 unit weekly on thursday.patricia l recheck in 2 months. [id number] NELDA MANSFIELD [address] [place] [address] 02/29/2024 18:11:58 03/01/2024 13:10:29 Pneumonia 774730523 J18.9 breathing is easy and unlabored: chest xray showed bilateral airspace opacities. No pleural effusion.c ontinue augmentin 500 mg TID until 03/04 and azithromyc in 500 mg for 1 day and then continue 250 mg for 4 days .check VS q shiftencou rage fluid hydration. [id number] NELDA MANSFIELD [address] [place] [address] 03/16/2024 10:26:05 03/18/2024 10:30:33 Pneumonia 704296139 J18.9 completed abxbreathi ng is easy and unlabored Mixed anxi ety and depressive disorder 027355253 F41.8 Mood is stable.Con tinue:bupr opion SR 150 mg qdmirtazap ine 7.5 mg qhs-03/14 seen by psych with recommenda tion for GDR for mirtazapin e now ordered at 5 mg hs. patient in agreement. Monitor mood. [id number] NELDA MANSFIELD [address] [place] [address] 03/23/2024 11:08:46 03/31/2024 14:26:29 Edema 170408995 R60.0 Marked tonight.Co ntinue furosemide 40 mg qd and metolazone 2.5 mg qd on T, Th, SaMonitor sxs. Chronic pain 87844413 G8 9.29 Remains at baseline.C ontinue fentanyl patch 50 mcg q 72 hrs, salonpas patch to right shoulder qd, APAP 1000 mg TID, tramadol 25 mg BID, tizanidine 2 mg BID, and prednisone 10 mg qd.Continu e rehab as able.Monit or sxs. Mixed anxi ety and depressive disorder 288681405 F41.8 Continue bupropion SR 150 mg qd and mirtazapin e 7.5 mg qhsMonitor mood.Psych follows Atrial fibrillation 4943 6004 I48.0 Continue eliquis 2.5 mg BID for AC.Monitor HR and bleeding risk. Type 2 russel betes mellitus 28696291 E11.9 continue lantus 15 units at HSmonitor FS Gastroesop hageal reflux disease without esophagitis 694761358 K21.9 No current sxs.Contin ue omeprazole 40 mg BID.Monito r sxs Hypothyroidism 37484304 E03.8 TSH WNL.Contin ue levothyrox ine 175 mcgMonitor TSH yearly. Eczema 77682694 L30.9 Much improved.C ontinue triamcinol one 0.1 % cream BID and house moisturize r qdMonitor Neuropathy 958377837 G62 .89 Gabapentin 200 mg BIDMonitor . Hypokalemia 11886021 E87 .6 continue kcl 30 meq daily. Vitamin D deficiency 347 18400 E55.9 12/06 Vit D level 20.4 - this is lower than previous levelwas taking cholecalci ferol 1000 unit daily-incr eased to 50,000 unit weekly on thursday.patricia parkinson recheck vit d level on next lab day. [id number] NELDA MANSFIELD [facility] [address] [place] [address] 03/29/2024 10:37:33 03/31/2024 14:35:20 Mixed anxiety and depressive disorder 685327656 F41.8 Mood is stable todayConti nue:buprop ion SR 150 mg qdwith trial gdr off mirtazapin e 7.5 mg qhs-decrea sed to 3.75 mgMonitor mood, patient will report unwanted side effects of gdr such as increased anxiety, restlessne ss, insomnia [id number] NELDA MANSFIELD [facility] [address] [place] [address] 04/26/2024 14:44:48 05/02/2024 13:49:37 Cellulitis of left lower limb 2489533442 5565975 L03.116 Met sepsis criteria due to 101.5 F, WBC 19.2recent ly started on Keflex for left lower extremity cellulitis on 04/15.CT chest without any focal findings of pneumonia. s/p iv van and zosyndisch arge on take Augmentin till 04/24/24 Extravasat ion of intravenous contrast medium 873706015 T80.818A In acute care found to have left arm swelling tx conservati vely with warm compress and elevation. Atrial fibrillation 4943 6004 I48.0 Continue eliquis 2.5 mg BID for AC.Monitor HR and bleeding risk. Hypothyroidism 14774656 E03.8 TSH WNL.Contin ue levothyrox ine 175 mcgMonitor TSH yearly. Gastroesop hageal reflux disease without esophagitis 644189793 K21.9 No current sxs.Contin ue omeprazole 40 mg BID.Monito r sxs Osteoarthritis 185406942 M15.0 lidocaine patch right shoulder.f entanyl 50 mcg patch q72 hrAPAP 1000 mg tidtramado l 25 mg bid prnglucosa mine 500 mg tid Type 2 russel betes mellitus 43503696 E11.9 continue lantus [address] [facility] [place] [id number] NELDA MANSFIELD [facility] [address] [place] [address] 05/02/2024 09:59:17 05/03/2024 11:50:42 Cellulitis of left lower limb 3110227779 2313552 L03.116 05/02: see hpiLLE edema and pain, [...] 04/24/24 Extravasat ion of intravenous contrast medium 588986253 T80.818A In acute care found to have left arm swelling tx conservati vely with warm compress and elevation. Atrial fibrillation 4943 6004 I48.0 Continue eliquis 2.5 mg BID for AC.Monitor HR and bleeding risk.repor table sx reviewed. Hypothyroidism 98659269 E03.8 TSH WNL.Contin ue levothyrox ine 175 mcgMonitor TSH yearly. Gastroesop hageal reflux disease without esophagitis 868128900 K21.9 No current sxs.Contin ue omeprazole 40 mg BID.Monito r sxs Osteoarthritis 803833908 M15.0 fentanyl 50 mcg patch q72 hrAPAP 1000 mg tidtramado l 25 mg bid prnglucosa mine 500 mg tid Type 2 russel betes mellitus 01568201 E11.9 continue lantus 15 units at [facility] [id number] NELDA MANSFIELD [address] [address] 05/05/2024 10:15:43 05/10/2024 15:49:53 Cellulitis of left lower limb 4511620751 9027041 L03.116 05/05: Ultrasound results reviewed, negative for [...] reviewed. Gastroesop hageal reflux disease without esophagitis 306145695 K21.9 stableNo current sxs.Contin ue omeprazole 40 mg BID.Monito r sxs Osteoarthritis 115748961 M15.0 stablefent anyl 50 mcg patch q72 hrAPAP 1000 mg tidtramado l 25 mg bid prn Type 2 russel betes mellitus 18760116 E11.9 continue lantus 15 units at [facility] [id number] NELDA MANSFIELD [address] [address] 05/09/2024 11:51:06 05/10/2024 16:10:25 Cellulitis of left lower limb 2751147187 3022704 L03.116 resolved Atrial fibrillation 4943 6004 I48.0 stable without sx.Continu e eliquis 2.5 mg BID for AC.Monitor HR and bleeding risk.repor table sx reviewed. Gastroesop hageal reflux disease without esophagitis 552906887 K21.9 stableNo current sxs.Contin ue omeprazole 40 mg BID.Monito r sxs Osteoarthritis 729696349 M15.0 stablefent anyl 50 mcg patch q72 hrAPAP 1000 mg tidtramado l 25 mg bid Type 2 russel betes mellitus 34516344 E11.9 continue lantus 15 units at HSmonitor FS- mainly under 200sshe is without hypo/hyper glucose sx. Edema 071799341 R60.0 BLE decreased edema note, she is wearing wilma wrapsconti nue torsemide 20 mg daily and metolazone as ord. [id number] NELDA MANSFIELD [facility] e [address] [place] [address] [place] [id number] 05/12/2024 11:47:54 05/13/2024 11:46:56 Atrial fibrillation 91426157 I48.0 stable without sx.Continu e eliquis 2.5 mg BID for AC.Monitor HR and bleeding risk.repor table sx reviewed. Gastroesop hageal reflux disease without esophagitis 269052066 K21.9 stableNo current sxs.Contin ue omeprazole 40 mg BID.Monito r sxs Osteoarthritis 074277798 M15.0 stablefent anyl 50 mcg patch q72 hrAPAP 1000 mg tidtramado l 25 mg bid Type 2 russel betes mellitus 43140227 E11.9 continue lantus [address] [facility] FS- mainly under 200sshe is without hypo/hyper glucose sx. Edema 971485621 R60.0 BLE decreased edema note, she is wearing wilma wrapsconti nue torsemide 20 mg daily and metolazone as ord. Spinal roni nosis of lumbar region 12612286 M48.062 fentanyl patch 50 mcgprednis one 10 mg daily - taper to start 05/16/24de creasing by 1 mg per week. [id number] NELDA MANSFIELD [address] [place] [address] 05/16/2024 08:25:38 05/18/2024 09:23:51 Atrial fibrillation 13146350 I48.0 stable without sx.Continu e eliquis 2.5 mg BID for AC.Monitor HR and bleeding risk.repor table sx reviewed. Gastroesop hageal reflux disease without esophagitis 645129704 K21.9 stableNo current sxs.Contin ue omeprazole 40 mg BID.Monito r sxs Osteoarthritis 681596683 M15.0 stablefent anyl 50 mcg patch q72 hrAPAP 1000 mg tidtramado l 25 mg bid Type 2 russel betes mellitus 48378127 E11.9 [facility] [address]- mainly under 200sshe is without hypo/hyper glucose sx. Edema 605896470 R60.0 BLE decreased edema note, she is wearing wilma wrapsconti nue torsemide 20 mg daily and metolazone as ord. Spinal roni nosis of lumbar region 67616345 M48.062 fentanyl patch 50 mcgprednis one 10 mg daily - taper to start 05/16/24de creasing by 1 mg per week. Itching of skin 26026365 0 L29.9 left shoulder is without redness or rashencour aged to apply lotion dailywill start claritin 10 mg daily. [id number] NELDA MANSFIELD [address] [place] [address] 05/19/2024 11:11:15 05/23/2024 15:12:03 Atrial fibrillation 50015273 I48.0 stable without sx.Continu e eliquis 2.5 mg BID for AC.Monitor HR and bleeding risk.repor table sx reviewed. Gastroesop hageal reflux disease without esophagitis 036084226 K21.9 stableNo current sxs.Contin ue omeprazole 40 mg BID.Monito r sxs Osteoarthritis 740228418 M15.0 stablefent anyl 50 mcg patch q72 hrAPAP 1000 mg tidtramado l 25 mg bid Type 2 russel betes mellitus 55010977 E11.9 continue lantus [address] [facility] FS- mainly under 200sshe is without hypo/hyper glucose sx. Edema 238649158 R60.0 BLE decreased edema note, she is wearing wilma wrapsconti nue torsemide 20 mg daily and metolazone as ord. Spinal roni nosis of lumbar region 66107967 M48.062 fentanyl patch 50 mcgprednis one 10 mg daily - taper to start 05/16/24de creasing by 1 mg per week. Itching of skin 23446877 0 L29.9 left shoulder is without redness or rashencour aged to apply lotion dailywill start claritin 10 mg daily. [id number] NELDA MANSFIELD [address] [place] [address] 05/23/2024 07:53:51 05/24/2024 13:52:57 Atrial fibrillation 86848902 I48.0 stable without sx.Continu e eliquis 2.5 mg BID for AC.Monitor HR and bleeding risk.repor table sx reviewed. Gastroesop hageal reflux disease without esophagitis 510029769 K21.9 stableNo current sxs.Contin ue omeprazole 40 mg BID.Monito r sxs Osteoarthritis 165014725 M15.0 stablefent anyl 50 mcg patch q72 hrAPAP 1000 mg tidtramado l 25 mg bid Type 2 russel betes mellitus 22176250 E11.9 continue lantus 15 units at [facility]- mainly under 200sshe is without hypo/hyper glucose sx. Edema 267603568 R60.0 BLE decreased edema note, she is wearing wilma wrapsconti nue torsemide 20 mg daily and metolazone as ord. Spinal roni nosis of lumbar region 64651984 M48.062 fentanyl patch 50 mcgprednis one 10 mg daily - taper to start 05/16/24de creasing by 1 mg per week. Itching of skin 12341623 0 L29.9 left shoulder is without redness or rashencour aged to apply lotion dailywill start claritin 10 mg daily. [id number] NELDA MANSFIELD [address] [place] [address] 05/27/2024 07:54:05 05/30/2024 13:39:41 Atrial fibrillation 92986270 I48.0 stable without sx.Continu e eliquis 2.5 mg BID for AC.Monitor HR and bleeding risk.repor table sx reviewed. Gastroesop hageal reflux disease without esophagitis 817790342 K21.9 stableNo current sxs.Contin ue omeprazole 40 mg BID.Monito r sxs Osteoarthritis 706233708 M15.0 stablefent anyl 50 mcg patch q72 hrAPAP 1000 mg tidtramado l 25 mg bid Type 2 russel betes mellitus 40533237 E11.9 continue lantus 15 units at [facility]- mainly under 200sshe is without hypo/hyper glucose sxwill need updated A1c as we taper off prednisone Edema 425367787 R60.0 improved with compressio n stockings. continue torsemide 20 mg daily and metolazone as ord. Spinal roni nosis of lumbar region 13007862 M48.062 fentanyl patch 50 mcgprednis one 10 mg daily - tapering off 1 mg per weekdecrea sing by 1 mg per week. Itching of skin 93890594 0 L29.9 stableleft shoulder is without redness or rashencour aged to apply lotion dailywill start claritin 10 mg daily. [id number] NELDA MANSFIELD [address] [place] [id number] 06/02/2024 09:27:55 06/06/2024 12:53:38 Atrial fibrillation 07956795 I48.0 stable without sx.Continu e eliquis 2.5 mg BID for AC.Monitor HR and bleeding risk.repor table sx reviewed. Gastroesop hageal reflux disease without esophagitis 507291541 K21.9 reports hypogastri c non radiating pain+ nausea no vomitinNo current sxs.Contin ue omeprazole 40 mg BID.Monito r sxs Osteoarthritis 933035736 M15.0 stablefent anyl 50 mcg patch q72 hrAPAP 1000 mg tidtramado l 25 mg bid Type 2 russel betes mellitus 69854465 E11.9 stablecont inue lantus 15 units at [facility]- mainly under 200sshe is without hypo/hyper glucose sx Edema 246093493 R60.0 improved with compressio n stockings. continue torsemide 20 mg daily and metolazone as ord. Blister of lower leg without infection 00797170 S80.822A initially fluid filled with clear liquidnow burst-anais ent recently tx for cellulitis , I prefer wound to be tx with and antispetic nursing ord to cleanse with NS 0r warm soap and water dialy, paint with betadine with non adhesive dressing and kerlix. [id number] BRYAN BERNARDO[address] [address] 06/06/2024 08:41:07 06/07/2024 11:48:57 Atrial fibrillation [id number] I48.0 stable without sx.Continu e eliquis 2.5 mg BID for AC.Monitor HR and bleeding risk.repor table sx reviewed. Gastroesop hageal reflux disease without esophagitis [id number] K21.9 No current sxs.Contin ue omeprazole 40 mg BID.Monito r sxs Osteoarthritis [id number] M15.0 stablefent anyl 50 mcg patch q72 hrAPAP 1000 mg tidtramado l 25 mg bid Type 2 russel betes mellitus 94625303 E11.9 stablecont inue lantus [address] [facility] FS- mainly under 200sshe is without hypo/hyper glucose sx Edema 075898781 R60.0 continue torsemide 20 mg daily and metolazone as ord. Blister of lower leg without infection 30973950 S80.822A initially fluid filled with clear liquidnow burst-anais ent recently tx for cellulitis , I prefer wound to be tx with and antispetic as well.adriani asia ord to cleanse with NS 0r warm soap and water dialy, paint with betadine cover with xeroform dressing and kerlix. [id number] BRYAN BERNARDO [address] [address] 06/16/2024 11:11:20 06/21/2024 11:07:01 Edema 144271987 R60.0 continue torsemide 20 mg daily and metolazone as ord. Blister of lower leg without infection 10156122 S80.822A initially fluid filled with clear liquidnow [...] recs to continue current tx ords. Dysuria 45131274 R30.0 send urine for UA with C&Swater encouraged to flush out toxins Fatigue 09127176 R53.83 recheck bmp, cbc, TSH,iron , ammonia and Vit B & D levels on 06/17 [id number] NELDA MANSFIELD [address] [place] [address] 06/27/2024 12:04:26 06/30/2024 11:21:08 Cellulitis of right lower limb [id number] 6761166 L03.115 2/2 diabetes and decreased skin integrity from venous stasis and chronic prednisone usetx with IV ancef in acute carecomple cassie po abx keflex on 06/24follo wed by Wound MD Venous ins ufficiency of leg 596955759 I87.2 chronic BLE edema/RLE acute DVT /right almanza erupted skin blisterdis cussed with nursing, continue eliquis and wound tx with xeroform Acute deep venous thrombosis of femoral vein [id number] 66125 I82.419 non occlusive/ RLEon eliquis 5 mg BID Chronic heart failure 48 408375 I50.9 acute on chronic/el evated BNP tx with IV lasixCXR showed interstiti al markings but difficult to interpret due to underlying fibrosisco ntinue torsemide and metolazone monitor labs Edema 548967872 R60.0 chroniccon government 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 [id number] NELDA MANSFIELD [address] [place] [id number] 06/30/2024 08:36:09 07/01/2024 12:09:02 Cellulitis of right lower limb [id number] 7496891 L03.115 completed abxdenies any pain, per nsg no erythema or warmth Venous ins ufficiency of leg 628633630 I87.2 chronic BLE edema/RLE acute DVT /right almanza erupted skin blisterdis cussed with nursing, continue eliquis and wound tx Acute deep venous thrombosis of femoral vein 3387134109 43950 I82.419 non occlusive/ RLEon eliquis 5 mg BID Chronic heart failure 48 772314 I50.9 acute on chronic/el evated BNP tx with IV lasixCXR showed interstiti al markings but difficult to interpret due to underlying fibrosisco ntinue torsemide and metolazone baseline crackles with hx of pulm. 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 Wound 716063542 T14.90 XA see pi2/2 to erupted blisterfol lowed by wound MD with recent changes to oil emulsion.shelbie kelly provided why tx was changedwil l resume previous tx order of NS and betadine per patient request and have wound re evaldiscus sed with nursing [id number] [facility] [address] [place] [id number] 07/04/2024 10:17:37 07/05/2024 14:29:23 Venous insufficiency of leg 840916492 I87.2 stablechro gavin BLE edema/RLE acute DVT /right almanza erupted skin blisterdis cussed with nursing, continue eliquis and wound tx Acute deep venous thrombosis of femoral vein [id number] 73238 I82.419 non occlusive/ RLEon eliquis 5 mg BID Chronic heart failure 48 195406 I50.9 acute on chronic/el evated BNP tx with IV lasixCXR showed interstiti al markings but difficult to interpret due to underlying fibrosisco ntinue torsemide and metolazone baseline crackles with hx of pulm. fibrosismo nitor labs Edema 725779319 R60.0 chronic/st abl;e with no increase on exam todayconsi jeff referral to lymphedema clinic - she often c/o pain, she is at increase risk for recurrent infection. Wound 473988982 T14.90 XA see pi2/2 to erupted blisterfol lowed by wound with recent changes to oil emulsion.shelbie kelly provided why tx was changedwil l resume previous tx order of NS and betadine per patient request and have wound re evaldiscus sed with nursing [id number] NELDA MANSFIELD [facility] [address] [place] [id number] 07/07/2024 08:16:53 07/08/2024 13:27:39 Venous insufficiency of leg 573243227 I87.2 stablechro gavin BLE edema/RLE acute DVT /right almanza erupted skin blisterdis cussed with nursing, continue eliquis and wound txseen by wound with new order changes made in pcc. Acute deep venous thrombosis of femoral vein 5711251890 60425 I82.419 non occlusive/ RLEon eliquis 5 mg BID Chronic heart failure 48 635732 I50.9 continue torsemide and metolazone baseline crackles with hx of pulm. fibrosismo nitor labs Edema 136414842 R60.0 chronic/st ableconsid er referral to lymphedema clinic - she often c/o pain, she is at increase risk for recurrent infection. [id number] NELDA MANSFIELD [facility] [address] [place] [id number] 07/11/2024 10:40:35 07/12/2024 12:07:39 Venous insufficiency of leg 002805514 I87.2 stablechro gavin BLE edema/RLE acute DVT /right almanza erupted skin blisterdis cussed with nursing, continue eliquis and wound txfollowed by wound /continu e current tx orders. Acute deep venous thrombosis of femoral vein [id number] 74903 I82.419 non occlusive/ RLEon eliquis 5 mg BID Chronic heart failure 48 513748 I50.9 baseline BLE edema, otherwise no worsening edema notedconti nue torsemide and metolazone baseline crackles with hx of pulm. fibrosismo nitor labs Edema 230547512 R60.0 chronic/st ableconsid er referral to lymphedema clinic - she often c/o pain, she is at increase risk for recurrent infection. 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 Mood is stable todayConti nue:buprop ion [...] Member ID Guarantor Name 07/07/2024 2 [place] [facility] [place] Lissa [id number] Dallas Alcaraz 07/07/2024 2 [place] [id number] Dallas Lissa [id number] [place] Lissa 07/07/2024 1 [place] B[place] [employer] [place] L[place] [id number] Dallas Lissa Notes Date Note Type Note [...] and history of PE NELDA MANSFIELD [address] [facility], [address], [place], [address], [facility] 07/07/2024 15:22:09 07/11/2024 text/html [place] is an [...] and history of PE NELDA MANSFIELD [address] [facility], [address], [place], [address], [employer] 07/11/2024 14:31:09 07/15/2024 text/html This is an 84 yr old women seen for acute rounding visit, she is reporting dysuria for a few days and states sx are similar to past UTI complaints. she denies any frequency or urgency, she has been afebrile. NELDA MANSFIELD [address] [facility], [address], [place], [address], [facility] [employer] 07/15/2024 12:35:05 07/18/2024 text/html This is an 84 yr old women seen for acute rounding visit for follow for dysuria. Recent UA negative for infection, pt updated on results, she now reports that she is no longer experiencing sx.she encouraged to increase fluid preferably water. NELDA MANSFIELD [address] [facility], [address], [place], [address], [employer] 07/18/2024 12:28:32 07/21/2024 text/html This is an 84 yr old women seen for acute rounding visit. She has been at baseline in NAD, today she is doing ok, there are no acute concerns. 07/21/24 Tested negative for covid NELDA MANSFIELD [address] , [address], [place], [address], [employer] 07/21/2024 15:46:48 OBGyn Episode No OBEpisode recorded.
[2025-02-06 07:15] LABS: Hematocrit 40.8 % (37.0-47.0); Hemoglobin 12.8 g/dl (12.0-16.0); Imm Gran Abs Auto 0.14 X10*3/uL (0.00-0.03); Imm Gran Pct Auto 1.2 % (0.0-0.4); Lymphocytes Absolute Auto 2.8 X10*3/uL (1.2-4.9); Mean Corpuscular HGB Conc 31.4 g/dl (31.0-35.0); Mean Corpuscular Hemoglobin 30.7 pg (27.0-33.0); Mean Corpuscular Volume 97.8 fL (80.0-98.0); NRBC Abs Auto 0.000 X10*3/uL (0.0-0.012); NRBC Pct Auto 0.0 /100WBC (0.0-0.2); Platelet Count 274 X10*3/uL (160-400); Red Blood Count 4.17 X10*6/uL (4.20-5.50); White Blood Count 12.0 X10*3/uL (4.8-10.8)
[2025-02-06 07:57] LABS: Alanine Aminotransferase 27 U/L (0-31); Albumin Level 3.9 g/dL (3.5-5.0); Alkaline Phosphatase 87 U/L (39-117); Anion Gap 19 (12-20); Aspartate Amino Transferase 29 U/L (5-31); Blood Urea Nitrogen 36 mg/dL (9-16); Calcium 9.6 mg/dL (8.4-10.2); Carbon Dioxide 31 mmol/L (22-29); Chloride 97 mmol/L (96-108); Estimated Glomerular Filt Rate 36; Potassium 4.0 mmol/L (3.3-5.1); Sodium 143 mmol/L (135-145); Total Protein 7.3 g/dL (6.5-8.0)
== END 2025-02-06 06:50 | disposition home or self-care (01) ==
LOC: HO.MMNH3L 06:49
PROVIDERS: Visit Provider Student in an Organized Health Care Education/Training Program
DX: E11.9 Type 2 diabetes mellitus without complications (principal); J84.10 Pulmonary fibrosis, unspecified; D50.9 Iron deficiency anemia, unspecified
CPT/HCPCS: 36415; 80053; 85025

== ENCOUNTER 2025-02-20 14:27 | Outpatient (REF) | payer MEDICARE, MEDICAID, SELFPAY ==
--- OUTSIDE RECORDS SUMMARY | 2025-02-21 08:47 | XMS_ITS | Data Portability ---
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 Name Role Phone KAREEM HAYNES 3RD FLOOR OTHER [phone] Assessment Encounter Date Assessment Date Assessment LastModified [...] Address Organization Details Recorded Time Severe pain [id number] Active 2021 back pain BRYANNA URBANO NP [address] [facility], [address], [place], [address], [facility] 2 13:15:21 Adult failure to thrive syndrome 763703493 Active 2021 BRYANNA URBANO, MIKIE [address] [facility], [address], [place], [address], [facility] 2 13:15:35 Fall Active 2021 BRYANNA URBANO NP [address], [address], [place], [address], [facility] 2 13:15:44 Gastroes ophageal reflux disease without esophagi tis 870922900 Active 2021 BRYANNA URBANO NP [address] [facility], [address], [place], [address], [facility] 2 13:16:01 Osteoart hritis 361521068 Active 2021 BRYANNA URBANO NP [address] [facility], [address], [place], [address], [facility] 2 13:16:10 Mixed anxiety and depressi ve disorder 113545135 Active 2021 BRYANNA URBANO NP [address] [facility], [address], [place], [address], [facility] 3 10:40:32 Hypothyr oidism 79831589 Active 2021 BRYANNA URBANO NP [address] [facility], [address], [place], [address], [facility] 2 13:16:28 Osteopor osis 86014257 Active 2021 BRYANNA URBANO NP [address], [address], [place], [address], [facility] 2 13:17:10 Atrial fibrilla tion 39566540 Active 2021 BRYANNA URBANO, MIKIE [address], [address], [place], [address], [facility] 2 14:21:30 Hyperlip idemia 51070783 Active 2021 BRYANNA VELAPIN, ROUND BONER [address], [address], [place], [address], [facility] 2 14:21:52 Spinal stenosis of lumbar region 23845365 Active 2021 Ana Damon MD [address], [address], [place], [address], [facility] 2 19:13:30 Edema 680808100 Active 2021 BRYANNA YOLIE, ROUND BONER [address], [address], [place], [address], [facility] 2 13:22:11 Hypokale doretha 11499066 Active 2021 Ana Damon MD [address], [address], [place], [address], [facility] 2 23:44:02 Pancreat itis 34542047 Active 2021 BRYANNA URBANO, ROUND BONER [address] [facility], [address], [place], [address], [facility] 2 14:58:02 Generali zed osteoart hritis 073499919 Active 2021 Ana Damon MD [address] [facility], [address], [place], [address], [facility] 2 14:42:49 Contusio n 062641439 Active 2021 right buttock BRYANNA YOLIE, ROUND BONER [address] [facility], [address], [place], [address], [facility] 3 12:37:52 COVID-19 684308025 Active 2021 BRYANNA YOLIE, ROUND BONER [address], [address], [place], [address], [facility] 2 10:44:44 Dislocat ion of shoulder joint 437105162 Active 2022 Margarette Awad NP [address], [address], [place], [address], [facility] 3 11:28:04 Chronic neck pain 20666570009 07 Active 2022 Ana Damon MD [address], [address], [place], [address], [facility] 3 21:36:27 Nausea 096456610 Active 2022 Ana Damon MD [address], [address], [place], [address], [facility] 3 21:36:31 Type 2 diabetes mellitus 05090458 Active 2022 Ana Damon MD [address], [address], [place], [address], [facility] 3 20:16:36 Contusio n of face 404605301 Active 2022 BRYANNA URBANO NP [address], [address], [place], [address], [facility] 3 12:37:45 Urinary tract infectio us disease 00278239 Active 2023 NELDA MANSFIELD [address], [address], [place], [address], [facility] 4 14:59:19 Dyspnea 850707131 Active 2023 ENLDA MANSFIELD [address], [address], [place], [address], [facility] 4 22:03:33 Neuropat hy 310624959 Active 2023 NELDA MANSFIELD [address], [address], [place], [address], [facility] 4 22:17:58 Constipa tion 11921331 Active 2023 NELDA MANSFIELD [address], [address], [place], [address], [facility] 4 22:22:39 Chronic pain 44452132 Active 2023 Ana Damon MD [address], [address], [place], [address], [facility] 4 10:49:48 Cellulit is 065642859 Active 2023 NELDA MANSFIELD [address] [facility], [address], [place], [address], [facility] 4 09:09:15 Manav contreras 39245467 Completed 202306/06/2024 on predniso ne 10 mg daily NELDA MANSFIELD [address] [place] [address], [address], [place], [address], [facility] 4 15:48:25 Venous insuffic iency of leg 841794916 Active 2023 NELDA MANSFIELD [address] [place] [address], [address], [place], [address], [facility] 4 02:16:11 Chronic heart failure 64726965 Active 2023 NELDA MANSFIELD [address] [place] [address], [address], [place], [address], [facility] 4 02:24:16 Problem Notes None recorded. Medical Equipment None Reported. Allergies Allergen ID Allergen Name Allergen Category Reaction Reaction Severity Criticality Documentation Date Start Date Code Code System Note Provider Name and Address Organization Details Recorded Time 98587 amitripty line medicatio n Not available Not available Not available 09/25/2021 704 RxNorm BRYANNA YOLIE, MIKIE [address] [place] [address], [address], [place], [address], [facility] 2 13:14:24 55054 morphine medicatio n Not available Not available Not available 09/25/2021 7052 RxNorm BRYANNA YOLIE, ROUND BONER [address] [facility], [address], [place], [address], [facility] 2 13:14:30 16190 oxycodone medicatio n Not available Not available Not available 09/25/2021 7804 RxNorm BRYANNA YOLIE, MIKIE [address] [facility], [address], [place], [address], [facility] 2 13:14:37 35498 Demerol medicatio n Not available Not available Not available 09/25/2021 04962 1 RxNorm BRYANNA YOLIE, ROUND BONER [address], [address], [place], [address], [facility] 2 13:14:42 44028 Phenergan medicatio n Not available Not available Not available 09/25/2021 11857 8 RxNorm BRYANNA GRIPPIN, ROUND BONER [address], [address], [place], [address], [facility] 2 13:14:50 82458 lactose food,medi cation Not available Not available Not available 09/25/2021 6211 RxNorm BRYANNA YOLIE, ROUND BONER [address] [facility], [address], [place], [address], [facility] 2 13:14:59 Medications Name Sig Start [...] DateTime 07/07/2024 162.56 cm NELDA MANSFIELD [address] [facility], [address], [place], [address], [facility] 07/07/2024 08:58:12 Date Recorded Body height Provider Name an d Address Organization Details Last Updated DateTime 07/11/2024 162.56 cm NELDA MANSFIELD [address] [facility], [address], [place], [address], [facility] 07/11/2024 14:23:34 Date Recorded Body height Heart rate Oxygen saturation Oxygen saturation in Arterial blood by Pulse oximetry Provider Name and Address Organization Details Last Updated DateTime 07/21/2024 162.56 cm 78 /min 95 % 95 % NELDA MANSFIELD [address] [facility], [address], [place], [address] , [facility] 07/21/2024 15:42:40 Social History Question Answer Notes LastModified by Organizat ion Details LastModified Time Tobacco Smoking Status Former Smoker can't remember when she quit Ana Damon MD [address] [facility], [address], [place], [place], [address], [facility] 09/26/2021 19:09:18 Do You Have An Advance Directive? Yes Information not available 09/26/2021 What Is Your Code Status? DNR/DNI Information not available 09/25/2021 Where Do You Live? [facility]. Was Living With Son, But He Is Not Home During The Day. Information not available 05/29/2023 Legal Guardian? No Informati on not available 09/26/2021 Do You Have A Medical Power Of Peoplesoft Consultant? Yes Invoked Information not available 09/26/2021 What [...] adjuvanted, quadrivalent, PF 05/21/2022 completed Dena maza, [facility] 08/17/2023 10:49:52 Influenza, adjuvanted, quadrivalent, PF 03/04/2023 completed Dena maza [facility] 08/17/2023 10:50:06 Past Encounters Encounter ID Performer Location Encounter Start Date Encounter Closed Date Diagnosis/Indication Diagnosis SNOMED-CT Code Diagnosis ICD10 Code Diagnosis Note [id number] BRYANNA URBANO NP [address] [address] 09/25/2021 09:13:56 09/30/2021 13:45:49 Severe pain 75887387 R52 fentanyl patch 50 mcgdilaudi d 1 mg q4hr prnprednis one 10 mg dailyrepos ition prnhospice consult and admission Osteoporosis 87953039 M8 1.0 methotrexa te 2.5 dronate 70 thursdaypred nisone 10 mg daily Osteoarthritis 067039978 M19.90 dilaudid 1 mg q4 hr prnfentany l 50 mcg patch Mixed anxi ety and depressive disorder 977422793 F41.8 wellbutrin xl 150 mg bid Hypothyroidism 36106422 E03.9 levothyrox ine 200 mcg daily Gastroesop hageal reflux disease without esophagitis 359281530 K21.9 omeprazole 40 mg daily Adult fail ure to thrive syndrome 075811056 R62.7 encourage po intake Fall W19.XXXA PT OT eval and treatfall precaution sfrequent safety checks Atrial fibrillation 4943 6004 I48.91 eliquis 5 mg bidlasix 40 mg daily Hyperlipidemia 86434645 E78.5 atorvastat in 40 mg daily [id number] Ana Damon MD [address] [place] [address] 09/26/2021 15:54:36 09/30/2021 14:03:56 Osteoporosis 68281870 M81.0 Will d/c alendronat e Osteoarthritis 787448524 M15.0 Unclear what she is on MTX for, if it's OA or pulmonary fibrosis.C ontinue methotrexa te 2.5 mg weekly.Chelsi n control as above. Mixed anxi ety and depressive disorder 715502475 F41.8 Continue wellbutrin xl 150 mg BID.Monito r mood. Hypothyroidism 29489648 E03.8 With elevated TSH, but nl FT4. Will leave dosing as is for now, bayron. since pt is transition ing to hospice.Co ntinue levothyrox ine 200 mcg qd.No further labs. Gastroesop hageal reflux disease without esophagitis 171533234 K21.9 Continue omeprazole 40 mg qd.Monitor sxs/ Adult fail ure to thrive syndrome 518799393 R62.7 Continue oral supplement s as able. fall W19.XXXA Unable to participat e in rehab.Cont infall precaution s.Monitor for safety. Atrial fibrillation 4943 6004 I48.0 Rate in good control on no rate controllin g meds.Leonora nue eliquis 5 mg BID for AC.Monitor HR and bleeding risk Hyperlipidemia 01962231 E78.49 Will d/c atorvastat inNo further labs Spinal roni nosis of lumbar region 74468427 M48.062 With continued distress, unclear how much is pain and how much is behavioral .Will start roxanol 5 mg q 4 hrs scheduled and q 1 hr prn. Hold for oversedati on.Continu e fentanyl patch 50 mcg q 72 hrs and dilaudid 1 mg q 4 hrs prnContinu e prednisone 10 mg qd.Hospice consult pending. [id number] MIKIE DUONG [address] [place] [address] 09/27/2021 10:49:34 09/30/2021 14:31:05 Mixed anxiety and depressive disorder 788198100 F41.8 wellbutrin xl 150 mg bid-pm dose is 50 mg a week decrease until donethen remeron can be startedris perdal 0.5 mg bidAIMs 0 Adult fail ure to thrive syndrome 063751187 R62.7 encourage po intakereme sonal 7.5 mg [id number] MIKIE DUONG [address] [place] [address] 09/30/2021 12:53:54 10/04/2021 13:57:38 Mixed anxiety and depressive disorder 497851093 F41.8 wellbutrin xl 150 mg bid-pm dose is 100 mg decrease for 7 days then discontinu ishan remeron can be startedris perdal 0.5 mg bid-decrea sed to 0.25 mg am, 0.5 mg hsAIMs 0 Adult fail ure to thrive syndrome 488122657 R62.7 encourage po intakereme sonal 7.5 mg hs when hs wellbutrin finished Spinal roni nosis of lumbar region 58353431 M48.062 fentanyl patch 50 mcg q72 daysdilaud id 1 mg q4hr prnprednis on 10 mg daily [id number] MD KAREEM Whitaker [address] [place] [address] 10/01/2021 19:18:36 10/04/2021 14:59:14 Spinal stenosis of lumbar region 86318291 M48.062 Continue fentanyl patch 50 mcg q 72 hrs and dilaudid 1 mg q 4 hrs prnContinu e prednisone 10 mg qd.Reconsi jeff hospice consult if pt. not able to tolerate med changes as below. Mixed anxi ety and depressive disorder 684614588 F41.8 Continue Wellbutrin 150 mg qAM and PM dose 100 mg until 10/08 then d/c pm doseStart mirtazapin e 7.5 mg qhs on 10/08Contin ue risperdal 0.25 mg qam and 0.5 mg qhsMonitor effect. Adult fail ure to thrive syndrome 415506325 R62.7 encourage po intakeStar t remeron 7.5 mg hs when hs wellbutrin finished as above. [id number] MIKIE DUONG [place] [address] [place] [address] 10/03/2021 10:04:53 10/09/2021 15:41:28 Adult failure to thrive syndrome 349390914 R62.7 encourage po intakereme sonal 7.5 mg hs when hs wellbutrin finished 10/08 Mixed anxi ety and depressive disorder 560620276 F41.8 wellbutrin xl 150 mg bid-pm dose is 100 mg decrease for 7 days then discontinu e 10/08then remeron can be startedris perdal 0.5 mg bid-decrea sed to 0.25 mg am, 0.5 mg hsAIMs 0 Severe pain 95378415 R52 fentanyl patch 50 mcgdilaudi d 1 mg q4hr prn-d/c due to lack of useprednis one 10 mg dailyrepos ition prnhospice consult and admissionr oxanol was d/c due to morphine allergy [id number] BRYANNA URBANO NP [address] [address] 10/09/2021 10:18:53 10/14/2021 14:25:24 Mixed anxiety and depressive disorder 556150877 F41.8 wellbutrin xl 150 mg bid-pm dose is 100 mg decrease for 7 days then discontinu e 10/08then remeron can be startedris perdal 0.5 mg hs-am dose d/cAIMs 0 Adult fail ure to thrive syndrome 896289236 R62.7 encourage po intakereme sonal 7.5 mg hs when hs wellbutrin finished 10/08 Severe pain 54965467 R52 fentanyl patch 50 mcgdilaudi d 1 mg q4hr prn-d/c due to lack of useprednis one 10 mg dailyrepos ition prnhospice consult and admissionr oxanol was d/c due to morphine allergy [id number] BRYANNA URBANO NP [address] [address] 10/11/2021 10:22:56 10/14/2021 15:05:22 Mixed anxiety and depressive disorder 326627294 F41.8 wellbutrin xl 150 mg bid-pm dose is 100 mg decrease for 7 days then discontinu e 10/08then remeron can be startedris perdal 0.5 mg hs-am dose d/cAIMs 0 Adult fail ure to thrive syndrome 578522719 R62.7 encourage po intakereme sonal 7.5 mg hs when hs wellbutrin finished 10/08 Severe pain 46982176 R52 fentanyl patch 50 mcgdilaudi d 1 mg q4hr prn-d/c due to lack of useprednis one 10 mg dailyrepos ition prnhospice consult and admissionr oxanol was d/c due to morphine allergy [id number] BRYANNA URBANO NP [address] [address] 10/14/2021 12:20:18 10/16/2021 14:26:14 Severe pain 03256546 R52 fentanyl patch 50 mcgprednis one 10 mg dailyrepos ition prnroxanol was d/c due to morphine allergy Mixed anxi ety and depressive disorder 697345987 F41.8 wellbutrin xl 150 mgremeron 7.5 mg dailyrispe rdal 0.5 mg hs-am dose d/cAIMs 0 Fall W19.XXXA PT OT eval and treatfall precaution sfrequent safety checks [id number] BRYANNA URBANO NP [address] [address] 10/16/2021 13:18:48 10/23/2021 10:49:11 Adult failure to thrive syndrome 237900380 R62.7 encourage po intakereme sonal 7.5 mg hs when hs wellbutrin finished 10/08 Mixed anxi ety and depressive disorder 849565587 F41.8 wellbutrin xl 150 mgremeron 7.5 mg dailyrispe rdal 0.5 mg hs-am dose d/cAIMs 0 Severe pain 80236529 R52 fentanyl patch 50 mcgprednis one 10 mg dailyrepos ition prnroxanol was d/c due to morphine allergy Edema 251858377 R60.9 lasix 40 mg daily will increase to bid for 7 days [id number] NELDA Gardiner [address] [address] 10/18/2021 11:22:25 10/23/2021 11:24:28 Adult failure to thrive syndrome 502764458 R62.7 Appetite improveden courage po intakereme sonal 7.5 mg QHSMonitor weights Mixed anxi ety and depressive disorder 539751208 F41.8 wellbutrin xl 150 mgremeron 7.5 mg dailyrispe rdal 0.5 mg hsMonitor moodPsych eval prn Severe pain 74044478 R52 fentanyl patch 50 mcgprednis one 10 mg dailyBack pain now well controlled Monitor Edema 415896488 R60.9 Lasix 40 mg BIDACE wraps BLEElevate legs as toleratedM onitor [id number] BRYANNA URBANO NP [address] [address] 10/21/2021 10:50:08 10/23/2021 11:52:29 Edema 901704236 R60.9 lasix 40 mg bidmetolaz one 2.5 mg tues, thursace wraps Severe pain 51738343 R52 fentanyl patch 50 mcgprednis one 10 mg dailyrepos ition prnroxanol was d/c due to morphine allergy [id number] BRYANNA URBANO NP [address] [address] 10/24/2021 10:43:36 10/29/2021 12:14:04 Edema 552040435 R60.9 lasix 40 mg bidmetolaz one 2.5 mg tues, thurs, add a dose sundayace wraps Adult fail ure to thrive syndrome 344726981 R62.7 encourage po intakereme sonal 7.5 mg hs Mixed anxi ety and depressive disorder 260843169 F41.8 wellbutrin xl 150 mgremeron 7.5 mg dailyrispe rdal 0.5 mg hs- decrease hs dose to 0.25 mgAIMs 0 [id number] BRYANNA URBANO NP [address] [address] 10/30/2021 10:59:13 11/05/2021 10:01:44 Adult failure to thrive syndrome 445385150 R62.7 encourage po intakereme sonal 7.5 mg hs Mixed anxi ety and depressive disorder 369482457 F41.8 wellbutrin xl 150 mgremeron 7.5 mg dailyrispe rdal 0.25 mg- discontinu eAIMs 0 Severe pain 80076542 R52 fentanyl patch 50 mcgprednis one 10 mg dailyrepos ition prnroxanol was d/c due to morphine allergy [id number] Ana Damon MD [address] [address] 11/19/2021 18:25:18 11/25/2021 15:04:26 Adult failure to thrive syndrome 691929169 R62.7 Doing much better. Wt. has been stable.Say s her appetite is good.Leonora nue mirtazapin e 7.5 mg qhs.Monito r wts. Mixed anxi ety and depressive disorder 699703312 F41.8 Mood good today.Cont inue wellbutrin XL 150 mg qd and mirtazapin e 7.5 mg qhsMonitor mood.Consu lt psych prn Severe pain 31650831 R52 Under good control on fentanyl patch 50 mcg q 3 days, prednisone 10 mg qd, and APAP prnRestart ing PT this week.Monit ro Edema 118025366 R60.0 Continue lasix 40 mg BID and metolazone 2.5 mg 2x/wk on & .Cont inue wilma wraps daily.Carmela tor Hypokalemia 28978485 E87 .6 With borderline low K+ for awhile. Has never been on K+ supplement .Will recheck next week and if still low will add KCL 10 meq qd.Monitor [id number] MIKIE DUONG [address] [place] [address] [place] [address] 12/12/2021 10:09:42 12/17/2021 16:08:08 Adult failure to thrive syndrome 999770731 R62.7 Doing much better. Wt. has been stable.Say s her appetite is good.Leonora nue mirtazapin e 7.5 mg qhs.Monito r wts. Mixed anxi ety and depressive disorder 603761887 F41.8 Mood good today.well butrin XL 150 mg qd and mirtazapin e 7.5 mg qhsMonitor mood.Consu lt psych prn Severe pain 31456088 R52 Under good control on fentanyl patch 50 mcg q 3 days, prednisone 10 mg qd, and APAP prnRestart ing PT this week.Monit ro Edema 019490912 R60.0 lasix 40 mg BIDmetolaz one 2.5 mg 2x/wk on & .Cont inue wilma wraps daily.Carmela tor Hypokalemia 98128188 E87 .6 With borderline low K+ for awhile. Has never been on K+ supplement .Will recheck next week and if still low will add KCL 10 meq qd.Monitor Atrial fibrillation 4943 6004 I48.0 eliquis 5 mg bidlasix 40 mg bid daily Gastroesop hageal reflux disease without esophagitis 521742088 K21.9 omeprazole 40 mg daily Hyperlipidemia 40877056 E78.49 atorvastat in 40 mg daily Hypothyroidism 82412104 E03.8 levothyrox ine 200 mcg daily Osteoarthritis 239516603 M15.0 fentanyl 50 mcg patch q72 hr Osteoporosis 04948397 M8 1.0 methotrexa te 2.5 dronate 70 thursdaypred nisone 10 mg daily Spinal roni nosis of lumbar region 58002209 M48.062 fentanyl patch 50 mcg q72 hourspredn isone 10 mg daily Fall W19.XXXA PT OT eval and treatfall precaution sfrequent safety checks [id number] MIKIE DUONG [place] [address] [place] [address] rd [place] [address] 01/03/2022 14:55:57 01/06/2022 20:46:48 Pancreatitis 65680003 K85.90 monitor for symptomsmo nitor labs Adult fail ure to thrive syndrome 045102681 R62.7 Doing much better. Wt. has been stable.Say s her appetite is good.gary zapine 7.5 mg qhs.Monito r wts. Mixed anxi ety and depressive disorder 270252352 F41.8 Mood good today.well butrin XL 150 mg bidmirtaza pine 7.5 mg qhsMonitor mood.Consu lt psych prn Severe pain 84625665 R52 Under good control on fentanyl patch 50 mcg q 3 days,predn isone 10 mg qd,APAP 650 mg q4hr prnPT OT eval and treat prnMonitor Edema 012604406 R60.0 lasix 40 mg BIDmetolaz one 2.5 mg 2x/wk on & , thursday.Con tinue wilma wraps daily.Carmela tor Hypokalemia 28978531 E87 .6 With borderline low K+ for awhile. Has never been on K+ supplement .Monitor Atrial fibrillation 4943 6004 I48.0 eliquis 5 mg bidlasix 40 mg bid dailymetol azone 2.5 mg , , Gastroesop hageal reflux disease without esophagitis 483532760 K21.9 omeprazole 40 mg daily Hyperlipidemia 21970593 E78.49 atorvastat in 40 mg daily Hypothyroidism 77512369 E03.8 levothyrox ine 200 mcg daily Osteoarthritis 507698073 M15.0 fentanyl 50 mcg patch q72 hr Osteoporosis 32759169 M8 1.0 prednisone 10 mg daily Spinal roni nosis of lumbar region 51985563 M48.062 fentanyl patch 50 mcg q72 hourspredn isone 10 mg daily Fall W19.XXXA PT OT eval and treatfall precaution sfrequent safety checks [id number] BRYANNA URBANO NP [address] [address] 01/06/2022 10:28:02 01/09/2022 13:18:55 Edema 826928910 R60.0 lasix 40 mg BIDmetolaz one 2.5 mg 2x/wk on thursday.Con tinue wilma wraps daily.Carmela tor Pancreatitis 59117390 K8 5.90 monitor for symptomsmo nitor labs [id number] BRYANNA URBANO NP [address] [address] 01/08/2022 12:46:02 01/10/2022 16:30:00 Edema 854968636 R60.0 lasix 40 mg BIDmetolaz one 2.5 mg 2x/wk on thursday.Con tinue wilma wraps daily-comp ression stockingsM onitor Pancreatitis 46782174 K8 5.90 monitor for symptomsmo nitor labs [id number] BRYANNA URBANO NP [address] [address] 01/10/2022 11:53:05 01/14/2022 12:50:34 Hypothyroidism 34340773 E03.8 levothyrox ine 200 mcg daily-incr ease to 225 mcgrecheck tsh-free T4 in 6 weeks [id number] Ana Damon MD [address] [address] 02/11/2022 16:58:31 02/19/2022 16:14:54 Hypothyroidism 91070781 E03.8 Levothyrox ine was increased from 200 mcg qd to 225 mcg qd on 01/13 due to TSH of 12.24. Free T4 was WNL.Due for recheck of TSH and FT4 in a week or two. Adult fail ure to thrive syndrome 144110208 R62.7 Doesn't really have this dx anymore. Her wt. has been stable and her appetite is good.Leonora nue mirtazapin e 7.5 mg qhs.Monito r wts. Mixed anxi ety and depressive disorder 644871113 F41.8 Mood good today.Cont inue wellbutrin XL 150 mg qd and mirtazapin e 7.5 mg qhsMonitor mood.Psych following, may try a GDR. Edema 141063006 R60.0 Continue lasix 40 mg BID and metolazone 2.5 mg 2x/wk on & .Cont inue WILMA wraps qd.Monitor Chronic pancreatitis 235 404314 K86.1 Under good control on fentanyl patch 50 mcg q 3 days, prednisone 10 mg qd, and APAP 650 mg q 6 hrs prnMonitor . Generalize d osteoarthritis 740982095 M15.0 Pain control as above.Also diclofenac gel to shoulders BID and hands prn.Will add lidocaine patches to shoulders, low back and elbows as needed.PT/ OT as needed.Mon itor [id number] MIKIE DUONG [address] [address] 02/25/2022 11:22:33 03/10/2022 20:26:15 Hypothyroidism 40097640 E03.8 levothyrox ine 225 mcgrecheck tsh-free T4 in 6 weeks Spinal roni nosis of lumbar region 34474174 M48.062 fentanyl patch 50 mcg q72 hourspredn isone 10 mg daily [id number] MIKIE DUONG [place] [address] [place] [address] 03/28/2022 11:18:57 04/03/2022 10:05:40 Generalized osteoarthritis 860478088 M15.0 tramadol 25 mg q6hr prndiclofe nac gel to shoulders BID and hands prn.Will add lidocaine patches to shoulders, low back and elbows as needed.PT/ OT as needed.Mon itor Severe pain 33114909 R52 Under good control on fentanyl patch 50 mcg q 3 days,predn isone 10 mg qd,APAP 650 mg q4hr prnPT OT eval and treat prnMonitor [id number] BRYANNA URBANO, MIKIE [address] [place] [address] 04/04/2022 10:53:36 04/08/2022 15:25:03 Mixed anxiety and depressive disorder [id number] F41.8 Mood good today.well butrin XL 150 mg bidmirtaza pine 7.5 mg qhsMonitor mood.Consu lt psych prn Severe pain 38959389 R52 fentanyl patch 50 mcg q 3 days,predn isone 10 mg qd,APAP 1000 mg tidtramado l 25 mg bid prnPT OT eval and treat prnMonitor Edema 756886567 R60.0 lasix 40 mg BIDmetolaz one 2.5 mg 2x/wk on & , thursday.Con tinue wilma wraps daily.Carmela tor Hypokalemia 19768323 E87 .6 With borderline low K+ for awhile. Has never been on K+ supplement .Monitor Atrial fibrillation 4943 6004 I48.0 eliquis 5 mg bidlasix 40 mg bid dailymetol azone 2.5 mg , doan Gastroesop hageal reflux disease without esophagitis 428187458 K21.9 omeprazole 40 mg daily Hyperlipidemia 43483167 E78.49 monitor Hypothyroidism 03779743 E03.8 levothyrox ine 225 mcg daily Osteoarthritis 938776584 M15.0 fentanyl 50 mcg patch q72 hrAPAP 1000 mg tidtramado l 25 mg bid prnglucosa mine 500 mg tid Osteoporosis 51098256 M8 1.0 prednisone 10 mg daily Spinal roni nosis of lumbar region 07540418 M48.062 fentanyl patch 50 mcg q72 hourspredn isone 10 mg daily Fall W19.XXXA PT OT eval and treatfall precaution sfrequent safety checks Adult fail ure to thrive syndrome 693001492 R62.7 Doing much better. Wt. has been stable.Say s her appetite is good.gary zapine 7.5 mg qhs.Monito r wts. 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 M15.0 tramadol 25 mg bid prndiclofe nac gel to shoulders BID and hands prn.Will add lidocaine patches to shoulders, low back and elbowsgluc osamine 500 mg bidtizanad ine 2 mg bidPT/OT as needed.Mon itor Severe pain 89923993 R52 fentanyl patch 50 mcg q 3 days,predn isone 10 mg qd,APAP 1000 mg tiddiclofe nac gel and lido patchestiz anidine 2 mg bidtramado l 25 mg bid prnPT OT eval and treat prnMonitor [id number] BRYANNA URBANO NP [address] [address] 05/07/2022 10:29:27 05/09/2022 15:20:45 Pancreatitis 88157688 K85.90 monitor for symptomsmo nitor labs Mixed anxi ety and depressive disorder 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 Has never been on K+ supplement .Monitor Atrial fibrillation 4943 6004 I48.0 eliquis 5 mg bid-on hold due to buttock bruiselasi x 40 mg bid dailymetol azone 2.5 mg , Gastroesop hageal reflux disease without esophagitis 230942433 K21.9 omeprazole 40 mg daily Hyperlipidemia 30431297 E78.49 monitor Hypothyroidism 94346292 E03.8 levothyrox ine 225 mcg daily Osteoarthritis 465719970 M15.0 fentanyl 50 mcg patch q72 hrAPAP 1000 mg tidtramado l 25 mg bid prnglucosa mine 500 mg tid Osteoporosis 23675722 M8 1.0 prednisone 10 mg daily Spinal roni nosis of lumbar region 98118513 M48.062 fentanyl patch 50 mcg q72 hourspredn isone 10 mg daily Fall W19.XXXA PT OT eval and treatfall precaution sfrequent safety checks Adult fail ure to thrive syndrome 468604718 R62.7 Doing much better. Wt. has been stable.Say s her appetite is good.agry zapine 7.5 mg qhs.Monito r wts. Generalize d osteoarthritis 906730780 M15.0 tramadol 25 mg bid prndiclofe nac gel to shoulders BID and hands prn.Will add lidocaine patches to shoulders, low back and elbowsgluc osamine 500 mg bidPT/OT as needed.Mon itor Contusion 943830727 T14. 8XXA monitor bruising for extension or lesseningh old eliquis [id number] Samina Wilburn MD [address] [address] 05/30/2022 07:35:26 06/04/2022 16:14:23 Chronic pain 93940383 G89.29 diclofenac gel 1% to shoulders bid, to both hands and spine prnfentany l patch 50 mcg q72 hsalonpas patch to right shoulder dailyAPAP 1000 mg tidtramado l 25 mg bidtizanid ine 2 mg bidprednis one 10 mg dailyPT/OT /PM&R prnwill monitor Mixed anxi ety and depressive disorder 693186256 F41.8 bupropion SR 150 mg dailymirta zapine 7.5 mg at hswill monitor Hypothyroidism 46715224 E03.8 levothyrox ine 225 mcg dailywill monitor Atrial fibrillation 4943 6004 I48.0 consider restart ACheld due to hematoma Type 2 russel betes mellitus 42737786 E11.9 insulin aspart per sliding scalewill monitor Edema 728888303 R60.0 furosemide 40 mg dailymetol azone 2.5 mg daily on T, Th, Sawill monitor Gastroesop hageal reflux disease without esophagitis 916614220 K21.9 omeprazole 40 mg bidwill monitor Recurrent pancreatitis 024871304 K86.1 fu GI prnlow fat dietwill monitor [id number] BRYANNA URBANO NP [address] [address] 07/21/2022 10:43:42 08/01/2022 13:30:09 COVID-19 585598909 U07.1 07/20 covid positiveen courage po food and fluidscons ider ivf for anorexiaco nsider paxlovid or decadron for symptomsse nd to ED for decompensa tion [id number] BRYANNA URBANO NP [address] [address] 07/23/2022 11:28:07 08/01/2022 14:08:08 COVID-19 418864547 U07.1 07/20 covid positiveen courage po food and fluidscons ider ivf for anorexiaco nsider paxlovid or decadron for symptomsse nd to ED for decompensa tion Chronic pain 76319394 G8 9.29 diclofenac gel 1% to shoulders bid, to both hands and spine prnfentany l patch 50 mcg q72 hsalonpas patch to right shoulder dailyAPAP 1000 mg tidtramado l 25 mg bidtizanid ine 2 mg bidprednis one 10 mg dailyPT/OT /PM&R prnwill monitor Mixed anxi ety and depressive disorder 528820240 F41.8 bupropion SR 150 mg dailymirta zapine 7.5 mg at hswill monitor Hypothyroidism 70282705 E03.8 levothyrox ine 225 mcg dailywill monitor Atrial fibrillation 4943 6004 I48.0 eliquis 2.5 mg bidmonitor for any hematomas Type 2 russel betes mellitus 90232842 E11.9 insulin aspart per sliding scalewill monitor Edema 165811780 R60.0 furosemide 40 mg dailymetol azone 2.5 mg daily on T, Th, Sawill monitor Gastroesop hageal reflux disease without esophagitis 188410446 K21.9 omeprazole 40 mg bidwill monitor Recurrent pancreatitis 359826670 K86.1 fu GI prnlow fat dietwill monitor [id number] BRYANNA URBANO NP [facility] [place] [address] [place] [address] 07/25/2022 10:22:57 08/01/2022 15:15:29 COVID-19 721872818 U07.1 07/20 covid positiveen courage po food and fluidscons ider ivf for anorexiaco nsider paxlovid or decadron for symptomsse nd to ED for decompensa tion [id number] BRYANNA URBANO NP [address] [address] 07/30/2022 11:27:21 08/01/2022 15:57:11 COVID-19 769310752 U07.1 07/20 covid positive-a symptomati c, recovered by dateencour age po food and fluidscons ider ivf for anorexiaco nsider paxlovid or decadron for symptomsse nd to ED for decompensa tion [id number] BRYANNA URBANO NP [address] [address] 07/31/2022 12:15:38 08/05/2022 18:21:58 COVID-19 479905245 U07.1 07/20 covid positive-a symptomati c, recovered by dateencour age po food and fluidscons ider ivf for anorexiaco nsider paxlovid or decadron for symptomsse nd to ED for decompensa tionCXR ordered for 07/31 Pancreatitis 42325884 K8 5.90 monitor for symptomsmo nitor labs [id number] BRYANNA URBANO NP [address] [address] 08/01/2022 11:59:17 08/06/2022 08:14:07 COVID-19 100672948 U07.1 07/20 covid positive-a symptomati c, recovered by dateencour age po food and fluidscons ider ivf for anorexiaco nsider paxlovid or decadron for symptomsse nd to ED for decompensa tionCXR ordered for 07/31-negati ve for chf or pna [id number] MIKIE Dasilva [address] [facility] [place] [address] 08/09/2022 10:30:12 08/13/2022 13:00:41 COVID-19 236841722 U07.1 resolved- no new treatment in hospital documentof f isolation precaution scovid rapid negative in facility on 08/09/22 per nursingmon itor for sequelae note: 07/20 covid positive-a symptomati c, recovered by dateencour age po food and fluidscons ider ivf for anorexiaco nsider paxlovid or decadron for symptomsse nd to ED for decompensa tionCXR ordered for 07/31-negati ve for chf or pna Pancreatitis 84328448 K8 5.90 was treated with ivf, medication s, and pain adjuncts- now improvedmo nitor for symptomsav oid fatty foods on low fat dietmonito r labs Chronic pain 43527215 G8 9.29 contdiclof enac gel 1% to shoulders bid, to both hands and spine prnfentany l patch 50 mcg q72 hsalonpas patch to right shoulder dailyAPAP 1000 mg tidtramado l 25 mg bidtizanid ine 2 mg bidprednis one 10 mg dailyPT/OT for weakness and painwill monitor Recurrent pancreatitis 290721259 K86.1 fu GI prnlow fat dietwill monitor Dislocatio n of shoulder joint 182265771 S43.004A pt has right shoulder dislocatio ncontinue pain meds as belowsling and swath as toleratedp assive romPT/OTfu with Dr Velasquez outptmonit or for cms, pulses, disclorati on [id number] MIKIE DUONG [address] [facility] [place] [address] 08/11/2022 10:07:53 08/13/2022 13:35:33 Pancreatitis 61488716 K85.90 monitor for symptomsmo nitor labswas treated with ivf, medication s, and pain adjuncts- now improvedmo nitor for symptomsav oid fatty foods on low fat diet Dislocatio n of shoulder joint 781703514 S43.004A pt has chronic right shoulder dislocatio ncontinue pain medssling and swath as toleratedp assive romPT/OTfu with Dr Velasquez outptmonit or for cms, pulses, disclorati on [id number] MIKIE DUONG [place] [address] [facility] [place] [address] 08/25/2022 11:17:28 08/27/2022 14:05:17 Pancreatitis 27128241 K85.90 monitor for symptomsmo nitor labswas treated with ivf, medication s, and pain adjuncts- now improvedmo xifloxin 400 mg daily x4 daysmonito r for symptoms avoid fatty foods on low fat diet Dislocatio n of shoulder joint 066646296 S43.004A pt has chronic subluxatio n right shoulder dislocatio ncontinue pain meds as belowsling and swath as toleratedp assive romPT/OTfu with Dr Velasquez outptmonit or for cms, pulses, disclorati on Chronic pain 66101068 G8 9.29 contdiclof enac gel 1% to shoulders bid, to both hands and spine prnfentany l patch 50 mcg q72 hsalonpas patch to right shoulder dailyAPAP 1000 mg tidtramado l 25 mg bidtizanid ine 2 mg bidprednis one 10 mg dailyPT/OT for weakness and painwill monitor COVID-19 636191070 U07.1 resolved- no new treatment in hospital documentof f isolation precaution scovid rapid negative in facility on 08/09/22 per nursingmon itor for sequelae note: 07/20 covid positive-a symptomati c, recovered by dateencour age po food and fluidscons ider ivf for anorexiaco nsider paxlovid or decadron for symptomsse nd to ED for decompensa tionCXR ordered for 07/31-negati ve for chf or pna Recurrent pancreatitis 709604870 K86.1 f/u GI prnlow fat dietwill monitor [id number] BRYANNA URBANO NP KAREEM [address] [facility] [place] [address] 09/04/2022 10:39:19 09/08/2022 15:11:55 Dislocation of shoulder joint 876534462 S43.004A pt has chronic subluxatio n right shoulder dislocatio ncontinue pain meds as belowsling and swath as tolerated for comfort prnPT/Edilson/ u with Dr Velasquez outptmonit or for cms, pulses, disclorati on Mixed anxi ety and depressive disorder 952568210 F41.8 bupropion SR 150 mg dailymirta zapine 7.5 mg at hswill monitor [id number] Samina Wilburn MD [address] [place] [address] 10/01/2022 10:06:00 10/03/2022 11:00:52 Atrial fibrillation 70304790 I48.0 apixaban 2.5 mg bidwill monitor Recurrent pancreatitis 689653858 K86.1 fu GIlow fat dietwill monitor Gastroesop hageal reflux disease without esophagitis 611456771 K21.9 omeprazole 40 mg bidwill monitor Type 2 russel betes mellitus 39330035 E11.9 insulin aspart per sliding scalewill monitor Chronic pain 50345191 G8 9.29 diclofenac gel 1% to shoulders bid, to both hands and spine prnfentany l patch 50 mcg q72 hsalonpas patch to right shoulder dailyAPAP 1000 mg tidtramado l 25 mg bidtizanid ine 2 mg bidprednis one 10 mg dailyPT/OT /PM&R prnwill monitor Peripheral edema 9399996 00 R60.0 metolazone 2.5 mg , Th, Sufurosemi de 40 mg bidwill monitor Hypothyroidism 85458466 E03.8 levothyrox ine 225 mcg dailywill monitor Mixed anxi ety and depressive disorder 014418832 F41.8 bupropion SR 150 mg dailymirta zapine 7.5 mg at hstizanidi ne 2 mg bidwill monitor Essential hypertension 57171514 I10 metolazone 2.5 mg daily on , , Safurosemi de 40 mg bidwill monitor [id number] BRYANNA URBANO NP [address] [place] [address] 10/15/2022 14:06:21 10/20/2022 14:25:22 Atrial fibrillation 47126131 I48.0 apixaban 2.5 mg bidwill monitor Recurrent pancreatitis 988363143 K86.1 fu GIlow fat dietwill monitor Gastroesop hageal reflux disease without esophagitis 114497474 K21.9 omeprazole 40 mg bidwill monitor Type 2 russel betes mellitus 87355261 E11.9 insulin aspart per sliding scalewill monitor Chronic pain 35989168 G8 9.29 diclofenac gel 1% to shoulders bid, to both hands and spine prnfentany l patch 50 mcg q72 hsalonpas patch to right shoulder dailyAPAP 1000 mg tidtramado l 25 mg bidtizanid ine 2 mg bidprednis one 10 mg dailyPT/OT /PM&R prnwill monitor Peripheral edema 3778642 00 R60.0 metolazone 2.5 mg , , Sufurosemi de 40 mg bidwill monitor Hypothyroidism 17371636 E03.8 levothyrox ine 225 mcg dailywill monitor Mixed anxi ety and depressive disorder 078620217 F41.8 bupropion SR 150 mg dailymirta zapine 7.5 mg at hstizanidi ne 2 mg bidwill monitor Essential hypertension 14427782 I10 metolazone 2.5 mg daily on , , Safurosemi de 40 mg bidwill monitor [id number] MIKIE DUONG [address] [place] [address] 11/28/2022 13:21:24 12/03/2022 17:20:32 Atrial fibrillation 46096872 I48.0 apixaban 2.5 mg bidwill monitor Recurrent pancreatitis 200560120 K86.1 f/u GIlow fat dietwill monitor Gastroesop hageal reflux disease without esophagitis 510189227 K21.9 omeprazole 40 mg bidwill monitor Type 2 russel betes mellitus 78474258 E11.9 insulin aspart per sliding scalewill monitor Chronic pain 93193249 G8 9.29 diclofenac gel 1% to shoulders bid, to both hands and spine prnfentany l patch 50 mcg q72 hsalonpas patch to right shoulder dailyAPAP 1000 mg tidtramado l 25 mg bidtizanid ine 2 mg bidprednis one 10 mg dailyPT/OT /PM&R prnwill monitor Peripheral edema 7105237 00 R60.0 metolazone 2.5 mg , Th, Sufurosemi de 40 mg bidwill monitor Hypothyroidism 79624766 E03.8 levothyrox ine 225 mcg dailywill monitor Mixed anxi ety and depressive disorder 764366007 F41.8 bupropion SR 150 mg dailymirta zapine 7.5 mg at hstizanidi ne 2 mg bidwill monitor Essential hypertension 57928128 I10 metolazone 2.5 mg daily on , , Safurosemi de 40 mg bidwill monitor [id number] BRYANNA URBANO NP [address] [address] 01/14/2023 14:00:23 01/16/2023 15:25:27 Mixed anxiety and depressive disorder 260086058 F41.8 bupropion SR 150 mg dailymirta zapine 7.5 mg at hstizanidi ne 2 mg bidwill monitor Severe pain 80144588 R52 fentanyl patch 50 mcg q 3 days,predn isone 10 mg qd,APAP 1000 mg tidtramado l 25 mg bid prnPT OT eval and treat prnMonitor Fall W19.XXXA PT OT eval and treatfall precaution sfrequent safety checks [id number] Samina Wilburn MD [address] [phone] 02/11/2023 10:06:26 02/13/2023 16:03:58 Mixed anxiety and depressive disorder 466248734 F41.8 bupropion SR 150 mg dailymirta zapine 7.5 mg at hswill monitor Atrial fibrillation 4943 6004 I48.0 apixaban 2.5 mg bidwill monitor Type 2 russel betes mellitus 97138183 E11.9 insulin aspart per sliding scalewill monitor Chronic pain 78058181 G8 9.29 diclofenac gel 1% to shoulders bid, to both hands and spine prnfentany l patch 50 mcg q72 hsalonpas patch to right shoulder dailyAPAP 1000 mg tidtramado l 25 mg bidtizanid ine 2 mg bidprednis one 10 mg dailyPT/OT /PM&R prnwill monitor Gastroesop hageal reflux disease without esophagitis 388293469 K21.9 omeprazole 40 mg bidwill monitor Hypothyroidism 19376220 E03.8 levothyrox ine 225 mcg dailywill monitor Edema 416782856 R60.0 furosemide 40 mg dailymetol azone 2.5 mg daily on T, , Sawill monitor [id number] MD KAREEM Whitaker [address] [place] [address] 03/20/2023 20:34:03 03/23/2023 14:49:16 Ecchymosis present 371478032 S80.02XA Probably bumped it and doesn't remember, no pain, so no tx needed.Mon itor for resolution and monitor for new ecchymoses . Nausea 877287556 R11.0 Mild, periodic and chronic.Wi ll start Zofran 4 mg q 6 hrs prnMonitor sxs. Chronic neck pain 671654 0109 107 M54.2 Already on multiple pain meds.Will start lidocaine patch to neck prn, pt. says it only hurts sometimes, so doesn't want it scheduled. Continue fentanyl patch 50 mcg q 72 hrs, APAP 1000 mg TID,tramad ol 25 mg BID,tizani dine 2 mg BID andprednis one 10 mg qd.Monitor sxs. [id number] BRYANNA URBANO NP [address] [place] [address] 04/03/2023 16:33:21 04/10/2023 09:59:49 Mixed anxiety and depressive disorder 995038501 F41.8 bupropion SR 150 mg dailymirta zapine 7.5 mg at hswill monitor Atrial fibrillation 4943 6004 I48.0 apixaban 2.5 mg bidwill monitor Type 2 russel betes mellitus 74546613 E11.9 insulin aspart per sliding scalewill monitor Chronic pain 88578674 G8 9.29 fentanyl patch 50 mcg q72 hsalonpas patch to right shoulder dailyAPAP 1000 mg tidtramado l 25 mg bidtizanid ine 2 mg bidprednis one 10 mg dailyPT/OT /PM&R prnwill monitor Gastroesop hageal reflux disease without esophagitis 590025981 K21.9 omeprazole 40 mg bidwill monitor Hypothyroidism 09776304 E03.8 levothyrox ine 225 mcg dailywill monitor Edema 621339841 R60.0 furosemide 40 mg dailymetol azone 2.5 mg daily on , , Sawill monitor [id number] MD KAREEM Whitaker [address] [facility] [address] [place] [address] 05/29/2023 18:52:13 06/12/2023 13:46:31 Mixed anxiety and depressive disorder 405660944 F41.8 Mood good tonight.Co ntinue bupropion SR 150 mg qd and mirtazapin e 7.5 mg qhsMonitor mood.Psych follows Atrial fibrillation 4943 6004 I48.0 Rate in good control on no rate controllin g meds.Leonora nue eliquis 2.5 mg BID for AC.Monitor HR and bleeding risk. Type 2 russel betes mellitus 09377873 E11.9 Last HgA1C 7.6 in 03/2022.Sug ars in adequate control on diet control with occ. SSI.Monito r fingerstic ks TID, due for recheck of HgA1C, forgot to order. Chronic pain 68705256 G8 9.29 Will add diclofenac gel for hands BID.Contin ue fentanyl patch 50 mcg q 72 hrs, salonpas patch to right shoulder qd, APAP 1000 mg TID, tramadol 25 mg BID, tizanidine 2 mg BID, and prednisone 10 mg qd.Continu e rehab as able.Monit or sxs. Gastroesop hageal reflux disease without esophagitis 436218659 K21.9 No current sxs.Contin ue omeprazole 40 mg BID.Monito r sxs Hypothyroidism 05077590 E03.8 TSH WNL.Contin ue levothyrox ine 225 mcg qdMonitor TSH yearly. Edema 347324539 R60.0 At baseline.C ontinue furosemide 40 mg qd and metolazone 2.5 mg qd on , , SaMonitor sxs. [id number] MIKIE DUONG [address] [facility] [place] [address] 06/29/2023 12:07:31 07/07/2023 18:16:09 Fall 4064375 W19.XXXA PT OT eval and treatfall precaution sfrequent safety checks Contusion of face 661627 004 S00.83XA monitor neurosmoni tor for any signs of infectionm onitor for resolution of the bruising [id number] BRYANNA URBANO NP [address] [address] 07/01/2023 12:23:08 07/07/2023 19:15:00 Contusion of face 894611699 S00.83XA monitor neurosmoni tor for any signs of infectionm onitor for resolution of the bruising Edema 432849851 R60.0 furosemide 40 mg dailymetol azone 2.5 mg daily on T, Th, Sawill monitor [id number] BRYANNA URBANO NP [address] [address] 07/24/2023 12:53:42 08/04/2023 13:25:11 Contusion of face 121131382 S00.83XA resolvedmo nitor neurosmoni tor for any signs of infectionm onitor for resolution of the bruising Edema 850755819 R60.0 furosemide 40 mg dailymetol azone 2.5 mg daily on T, Th, Sawill monitor Fall W19.XXXA PT OT eval and treatfall precaution sfrequent safety checks Mixed anxi ety and depressive disorder 485332092 F41.8 bupropion SR 150 mg dailymirta zapine 7.5 mg at hswill monitor Atrial fibrillation 4943 6004 I48.0 apixaban 2.5 mg bidwill monitor Type 2 russel betes mellitus 76276034 E11.9 insulin aspart per sliding scalewill monitor Chronic pain 00136352 G8 9.29 fentanyl patch 50 mcg q72 hsalonpas patch to right shoulder dailyAPAP 1000 mg tidtramado l 25 mg bidtizanid ine 2 mg bidprednis one 10 mg dailyPT/OT /PM&R prnwill monitor Gastroesop hageal reflux disease without esophagitis 289205569 K21.9 omeprazole 40 mg bidwill monitor Hypothyroidism 07543011 E03.8 levothyrox ine 225 mcg dailywill monitor [id number] NELDA MANSFIELD [address] [address] 09/03/2023 09:01:19 09/08/2023 15:59:59 Dry skin dermatitis 339789217 L85.3 see hpireports intermitte nt itchiness at timesfluid s encouraged Apply moisturize r to skin BIDhydorco rtisone cream TID prn Transient lingual papillitis 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.0 not appreciate d on examwarm salt water rinses QID prngood oral hygiene encourageb arcos teeth after mealschlor hexidine mouth wash qd and HS Toothache 77866894 K08.8 9 [id number] Samina Wilburn MD [address] [address] 09/23/2023 08:31:39 09/29/2023 10:26:59 Mixed anxiety and depressive disorder 836933777 F41.8 bupropion SR 150 mg dailymirta zapine 7.5 mg at hswill monitor Chronic pain 15331922 G8 9.29 diclofenac gel 1% to shoulders daily in eveningfen tanyl patch 50 mcg q72 hLidocaine patch to right shoulder and neck dailyAPAP 1000 mg tidtramado l 25 mg bidtizanid ine 2 mg bidprednis one 10 mg dailyPT/OT /PM&R prnwill monitor Atrial fibrillation 4943 6004 I48.0 apixaban 2.5 mg bidwill monitor Type 2 russel betes mellitus 63388804 E11.9 insulin aspart per sliding scalewill monitor Hypothyroidism 76491954 E03.8 levothyrox ine 225 mcg dailywill monitor Gastroesop hageal reflux disease without esophagitis 699091063 K21.9 omeprazole 40 mg bidwill monitor Edema 728358034 R60.0 furosemide 40 mg dailymetol azone 2.5 mg daily on T, , Sawill monitor Chronic dermatitis 87880 007 L20.89 d/c compressio n stockingst riamcinolo ne cream bidelevate d legswill monitor [id number] NELDA MANSFIELD [address] [address] 09/24/2023 08:15:25 10/01/2023 11:35:02 Fall 7209766 W19.XXXA see hpiPT/OT eval and tx per facility protocolmi nimize fall risknursin g to educate pt on making sure wheelchair is in lock position and front wheels are facing forward before getting up out of chair. Contusion 374732225 T14. 8XXA Patient hit her right almanza against bed frame when she fell forwardnot ed with mild tenderness on eliquismon itor right almanza bruise for healing [id number] NELDA MANSFIELD [address] [address] 10/13/2023 10:07:38 10/15/2023 15:15:36 Neuropathy 302138234 G62.9 bilateral lower extremity calf with tingling pain and tenderness she is not experience any pain relief with current pain medication spatient agrees to try gabapentin times one dose 100mg she will update nursing if she experience relief. Fatigue 25938368 R53.83 appears tirediron studies, tsh, t4, bmp and cbc, vit D and Vit B levels orderedwil l r/o UTI as well. Type 2 russel betes mellitus 58369100 E11.9 currently on lispro SSC will adjust coveragere cently added lantus 10 units10/12 increased lantus to 15 units Hypothyroidism 71558701 E03.8 levothyrox ine 225 mcg dailyord TSH, T4 for 10/13 [id number] NELDA MANSFIELD [address] [address] 10/19/2023 13:21:25 10/22/2023 12:31:39 Vitamin D deficiency 59693198 E55.9 VIt D level 22start cholecacif telly 1000 unit dailyreche ck Vitamin D level in 3-4 months Neuropathy 187638802 G62 .9 today she tells me that she has a postive effect with gabapentin and would like to continue, she has not had any pain.will scheduled gabapentin 100 mg BID Q12 Type 2 russel betes mellitus 79168751 E11.9 currently on lispro SSC will adjust coveragere cently added lantus 10 units10/12 increased lantus to 15 units3/25: FS have improved Hypothyroidism 85484661 E03.8 levothyrox ine 225 mcg dailyord TSH, T4 for 10/13 Pending Dry skin dermatitis 2600 25451 L85.3 posterior calf noted with red patchy areas that are dry and flakyrefus ed rx cream recommende d, prefer and has been using -goldbond creamuses her own with good effect per patient.wi monitor. [id number] NELDA MANSFIELD [address] [address] 10/30/2023 21:18:42 11/02/2023 15:19:50 Type 2 diabetes mellitus 29276991 E11.9 continue lispro SSCcontinu e lantus 15 unitsmonit or FS TID Hypothyroidism 83248029 E03.8 levothyrox ine decreased to 175 mcgTSH 0.1 T4 normal rangerepea t labs in 6 weeks Abdominal pain 51845489 R10.9 see hpicontinu e zofran prn for nauseaplan robin upcoming EGD. [id number] NELDA MANSFIELD [address] [address] 11/04/2023 10:45:41 11/16/2023 16:04:21 Type 2 diabetes mellitus 72207235 E11.9 continue lispro SSCcontinu e lantus 15 unitsmonit or FS TID Hypothyroidism 47778068 E03.8 levothyrox ine decreased to 175 mcgTSH 0.1 T4 normal rangerepea t labs in 6 weeks Abdominal pain 77832903 R10.9 see hpicontinu e zofran prn for nauseaEGD unremarkab le Urinary tr act infectious disease 80236991 N39.0 10/21: postive UAstart levofloxac in 250 mg for 5 daysstart probiotic 1 tab bid for 10 daysincrea se oral hydration. [id number] NELDA MANSFIELD [address] [address] 11/19/2023 10:42:12 11/27/2023 15:22:30 Type 2 diabetes mellitus 17527761 E11.9 continue lispro SSCcontinu e lantus 15 unitsmonit or FS TID Hypothyroidism 33696747 E03.8 levothyrox ine decreased to 175 mcgTSH 0.1 T4 normal rangerepea t labs in 6 weeks Abdominal pain 17072534 R10.9 see hpicontinu e zofran prn for nauseaEGD unremarkab le Urinary tr act infectious disease 36954009 N39.0 3/28: postive UAstart levofloxac in 250 mg for 5 daysstart probiotic 1 tab bid for 10 daysincrea se oral hydration. Mixed anxi ety and depressive disorder 310006174 F41.8 bupropion SR 150 mg dailymirta zapine 7.5 mg at hswill monitor Chronic pain 28305803 G8 9.29 diclofenac gel 1% to shoulders daily in eveningfen tanyl patch 50 mcg q72 hLidocaine patch to right shoulder and neck dailyAPAP 1000 mg tidtramado l 25 mg bidtizanid ine 4 mg bidprednis one 10 mg dailyPT/OT /PM&R prnwill monitor Atrial fibrillation 4943 6004 I48.0 continue apixaban 2.5 mg bid Gastroesop hageal reflux disease without esophagitis 153294431 K21.9 omeprazole 40 mg bidcontinu e zofran 4 mg q6 prn Edema 812254212 R60.0 continue furosemide 40 mg dailyconti nue metolazone 2.5 mg daily on , , Eczema 04865081 L30.9 triamcinol one 0.1 % cream BID Dyspnea 984949498 R06.00 continue albuterol inhaler prn for shortness of breath Osteoarthritis 116158707 M15.0 lidocaine patch right shoulder.f entanyl 50 mcg patch q72 hrAPAP 1000 mg tidtramado l 25 mg bid prnglucosa mine 500 mg tid Chronic neck pain 473926 1805 107 M54.2 continue gabapentin 100 mg BID Neuropathy 199894716 G62 .9 continue gabapentin 100 mg BID. 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 [id number] [facility] [address] [place] [address] [place] [address] 11/26/2023 18:58:29 12/01/2023 10:07:02 Pain of left heel 1680719292 562681 M79.672 skin prep to bilateral heels BIDoff load heels on pillow when in bedmonitor for worsening sx.Risk factor discussed diabetes ,immobilit y, age [id number] NELDA MANSFIELD [address] [place] [address] 12/14/2023 08:12:26 12/17/2023 13:25:50 Eczema 23920925 L30.9 bilateral lower extremitie s rash with scattered patches dry and redhx chronic edema, there is potential for weeping/oo zingtriamc inolone 0.1 % cream BIDmoistur izes legs daily Pain in right heel 49740 69007 197119 M79.671 right heel red and boggywill add skin prep BIDoffload heels when in bedwear socks with shoes Neuropathy 148465188 G62 .9 reports increasing bilateral leg painwill increase gabapentin to 200 mg BID and re assess for inprovemen t. [id number] NELDA MANSFIELD [address] [place] [address] 01/12/2024 12:10:02 01/13/2024 16:55:18 Easy bruising 758106872 R58 reddish mid upper chest bruising, skin intactshe is noted with scattered bruising on shoulder as well.she takes eliquis and prednisone , diuretic dailywill continue to monitor.wi ll check iron studies and VIT D on next lab day. Hypothyroidism 94988506 E03.8 continue levothyrox ine 175 mcgTSH now 1.74contin ue to monitor. [id number] Ana Damon MD [address] [place] [address] 02/01/2024 21:46:09 02/17/2024 11:18:25 Chronic pain 15158818 G89.29 Remains at baseline.C ontinue fentanyl patch 50 mcg q 72 hrs, salonpas patch to right shoulder qd, APAP 1000 mg TID, tramadol 25 mg BID, tizanidine 2 mg BID, and prednisone 10 mg qd.Continu e rehab as able.Monit or sxs. 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 SSI.Monito r fingerstic ks TID, due for recheck of HgA1C, forgot to order. Gastroesop hageal reflux disease without esophagitis 815867174 K21.9 No current sxs.Contin ue omeprazole 40 mg BID.Monito r sxs Hypothyroidism 08861951 E03.8 TSH WNL.Contin ue levothyrox ine 225 mcg qdMonitor TSH yearly. Edema 418130616 R60.0 Marked tonight.Co ntinue furosemide 40 mg qd and metolazone 2.5 mg qd on , , SaMonitor sxs. Eczema 93647706 L30.9 Much improved.C ontinue triamcinol one 0.1 % cream BID and house moisturize r qdMonitor Neuropathy 464055021 G62 .89 Gabapentin was increased to 200 mg BID on 12/14/23Som e improvemen t since then.Leonora nue other pain meds as above also.Monit or. [id number] MIKIE SCALES [place] [address] [place] [address] [place] [address] 02/18/2024 11:02:37 02/20/2024 09:33:35 Edema 741988918 R60.0 Suspecting more may be going on, [...] nFurther work up as indicated Chronic pain 96427361 G8 9.29 Remains at baseline.C ontinue fentanyl patch 50 mcg q 72 hrs, salonpas patch to right shoulder qd, APAP 1000 mg TID, tramadol 25 mg BID, tizanidine 2 mg BID, and prednisone 10 mg qd.Continu e rehab as able.Monit or sxs. Mixed anxi ety and depressive disorder 924333995 F41.8 Mood goodContin ue bupropion SR 150 mg qd and mirtazapin e 7.5 mg qhsMonitor mood.Psych follows Atrial fibrillation 4943 6004 I48.0 Rate remains in good control on no rate controllin g meds.Leonora nue eliquis 2.5 mg BID for AC.Monitor HR and bleeding risk. Type 2 russel betes mellitus 20325620 E11.9 Last HgA1C 7.6 in 03/2022.Sug ars in adequate control on diet control with occ. SSI.Monito r fingerstic ks TID, due for recheck of HgA1C, forgot to order. Gastroesop hageal reflux disease without esophagitis 038843067 K21.9 No current sxs.Contin ue omeprazole 40 mg BID.Monito r sxs Hypothyroidism 79276829 E03.8 TSH WNL.Contin ue levothyrox ine 225 mcg qdMonitor TSH yearly. Eczema 33766603 L30.9 Much improved.C ontinue triamcinol one 0.1 % cream BID and house moisturize r qdMonitor Neuropathy 651344754 G62 .89 Gabapentin was increased to 200 mg BID on 12/14/23Som e improvemen t since then.Leonora nue other pain meds as above also.Monit or. Candidiasis of mouth 797 63434 B37.0 Aranda plaque on tongue.Voi ce hoarse, ? if also esophageal Nystatin Swish and swallow 5 ml qid x 30 daysMainta in oral hygeine, brush tongue Dental caries 43332545 K 02.9 Planning for teeth # 29 and 31 extraction s.Will hold clearance for now until fluid balance figured out.Will hold basaglar insulin the night before procedureW ill hold eliquis the day before and the day of procedureD oes not appear abx. proph. is warrantedC ardiac risk currently low for dental extraction s. Hypokalemia 53958435 E87 .6 K 3.1 on labs 02/16/24Pla n as above [id number] BRYAN BERNARDO, NELDA HAYNES [address] [facility] [address] [place] [address] 02/23/2024 11:06:51 02/24/2024 15:45:14 Edema [address]1651791 R60.[address] xray did not show [...] restrictio nFurther work up as indicated Hypokalemia 61981605 E87 .6 02/21:Impro thomas 3.4continu e kcl 30 meq daily. Chronic pain 47022651 G8 9.29 Remains at baseline.C ontinue fentanyl patch 50 mcg q 72 hrs, salonpas patch to right shoulder qd, APAP 1000 mg TID, tramadol 25 mg BID, tizanidine 2 mg BID, and prednisone 10 mg qd.Continu e rehab as able.Monit or sxs. Mixed anxi ety and depressive disorder 369986217 F41.8 Mood goodContin ue bupropion SR 150 mg qd and mirtazapin e 7.5 mg qhsMonitor mood.Psych follows Atrial fibrillation 4943 6004 I48.0 Rate remains in good control on no rate controllin g meds.Leonora nue eliquis 2.5 mg BID for AC.Monitor HR and bleeding risk. Type 2 russel betes mellitus 43135863 E11.9 Last HgA1C 7.6 in 03/2022.Sug ars in adequate control on diet control with occ. SSI.Monito r fingerstic ks TID, due for recheck of HgA1C, forgot to order. Gastroesop hageal reflux disease without esophagitis 409965584 K21.9 No current sxs.Contin ue omeprazole 40 mg BID.Monito r sxs Hypothyroidism 32371995 E03.8 TSH WNL.Contin ue levothyrox ine 225 mcg qdMonitor TSH yearly. Eczema 61417806 L30.9 Much improved.C ontinue triamcinol one 0.1 % cream BID and house moisturize r qdMonitor Neuropathy 005095899 G62 .89 Gabapentin was increased to 200 mg BID on 12/14/23Som e improvemen t since then.Leonora nue other pain meds as above also.Monit or. Pneumonia 275356562 J18. 9 02/17: chest xray showed bilateral [...] rage fluid hydration. Vitamin D deficiency 347 77906 E55.9 12/06:Vit D level 20.4 - this is lower than previous levelwas taking cholecalci ferol 1000 unit daily -will increases to 50,000 unit weekly on thursday.patricia parkinson recheck in 2 months. [id number] [facility] [address] [place] [address] [place] [address] 02/25/2024 10:46:10 02/29/2024 16:18:54 Edema 328675267 R60.[address] xray did not show [...] restrictio nFurther work up as indicated Hypokalemia 68100122 E87 .6 02/21:Impro thomas 3.4continu e kcl 30 meq daily. Chronic pain 26075198 G8 9.29 Remains at baseline.C ontinue fentanyl patch 50 mcg q 72 hrs, salonpas patch to right shoulder qd, APAP 1000 mg TID, tramadol 25 mg BID, tizanidine 2 mg BID, and prednisone 10 mg qd.Continu e rehab as able.Monit or sxs. Mixed anxi ety and depressive disorder 022439308 F41.8 Mood goodContin ue bupropion SR 150 mg qd and mirtazapin e 7.5 mg qhsMonitor mood.Psych follows Atrial fibrillation 4943 6004 I48.0 Rate remains in good control on no rate controllin g meds.Leonora nue eliquis 2.5 mg BID for AC.Monitor HR and bleeding risk. Type 2 russel betes mellitus 88128606 E11.9 Last HgA1C 7.6 in 03/2022.Sug ars in adequate control on diet control with occ. SSI.Monito r fingerstic ks TID, due for recheck of HgA1C, forgot to order. Gastroesop hageal reflux disease without esophagitis 242488462 K21.9 No current sxs.Contin ue omeprazole 40 mg BID.Monito r sxs Hypothyroidism 56879084 E03.8 TSH WNL.Contin ue levothyrox ine 225 mcg qdMonitor TSH yearly. Eczema 86006136 L30.9 Much improved.C ontinue triamcinol one 0.1 % cream BID and house moisturize r qdMonitor Neuropathy 111507058 G62 .89 Gabapentin 200 mg BIDreports bilateral lower extremity pain- noted with swelling >in LLE than RLE-awaiti ng ultrasound to r/o DVT. due to be done today at 3 pmPt willing to try diclofenac gel for lower extremity to see it helps with pain. Pneumonia 674316137 J18. 9 02/17: chest xray showed bilateral [...] rage fluid hydration. Vitamin D deficiency 347 06678 E55.9 12/06:Vit D level 20.4 - this is lower than previous levelwas taking cholecalci ferol 1000 unit daily -will increases to 50,000 unit weekly on thursday.patricia l recheck in 2 months. [id number] NELDA MANSFIELD [address] [place] [address] 02/29/2024 18:11:58 03/01/2024 13:10:29 Pneumonia 693141494 J18.9 breathing is easy and unlabored: chest xray showed bilateral airspace opacities. No pleural effusion.c ontinue augmentin 500 mg TID until 03/04 and azithromyc in 500 mg for 1 day and then continue 250 mg for 4 days .check VS q shiftencou rage fluid hydration. [id number] NELDA MANSFIELD [address] [place] [address] 03/16/2024 10:26:05 03/18/2024 10:30:33 Pneumonia 529210144 J18.9 completed abxbreathi ng is easy and unlabored Mixed anxi ety and depressive disorder 381354689 F41.8 Mood is stable.Con tinue:bupr opion SR 150 mg qdmirtazap ine 7.5 mg qhs-03/14 seen by psych with recommenda tion for GDR for mirtazapin e now ordered at 5 mg hs. patient in agreement. Monitor mood. [id number] NELDA MANSFIELD [address] [place] [address] 03/23/2024 11:08:46 03/31/2024 14:26:29 Edema 607745677 R60.0 Marked tonight.Co ntinue furosemide 40 mg qd and metolazone 2.5 mg qd on T, Th, SaMonitor sxs. Chronic pain 92357662 G8 9.29 Remains at baseline.C ontinue fentanyl patch 50 mcg q 72 hrs, salonpas patch to right shoulder qd, APAP 1000 mg TID, tramadol 25 mg BID, tizanidine 2 mg BID, and prednisone 10 mg qd.Continu e rehab as able.Monit or sxs. Mixed anxi ety and depressive disorder 644286933 F41.8 Continue bupropion SR 150 mg qd and mirtazapin e 7.5 mg qhsMonitor mood.Psych follows Atrial fibrillation 4943 6004 I48.0 Continue eliquis 2.5 mg BID for AC.Monitor HR and bleeding risk. Type 2 russel betes mellitus 32818467 E11.9 continue lantus 15 units at HSmonitor FS Gastroesop hageal reflux disease without esophagitis 146090667 K21.9 No current sxs.Contin ue omeprazole 40 mg BID.Monito r sxs Hypothyroidism 46832191 E03.8 TSH WNL.Contin ue levothyrox ine 175 mcgMonitor TSH yearly. Eczema 00145256 L30.9 Much improved.C ontinue triamcinol one 0.1 % cream BID and house moisturize r qdMonitor Neuropathy 322851311 G62 .89 Gabapentin 200 mg BIDMonitor . Hypokalemia 51743351 E87 .6 continue kcl 30 meq daily. Vitamin D deficiency 347 26575 E55.9 12/06 Vit D level 20.4 - this is lower than previous levelwas taking cholecalci ferol 1000 unit daily-incr eased to 50,000 unit weekly on thursday.patricia parkinson recheck vit d level on next lab day. [id number] [facility] [address] [place] [address] 03/29/2024 10:37:33 03/31/2024 14:35:20 Mixed anxiety and depressive disorder 804302322 F41.8 Mood is stable todayConti nue:buprop ion SR 150 mg qdwith trial gdr off mirtazapin e 7.5 mg qhs-decrea sed to 3.75 mgMonitor mood, patient will report unwanted side effects of gdr such as increased anxiety, restlessne ss, insomnia [id number] [facility] [address] [place] [address] 04/26/2024 14:44:48 05/02/2024 13:49:37 Cellulitis of left lower limb 1654984853 0068776 L03.116 Met sepsis criteria due to 101.5 F, WBC 19.2recent ly started on Keflex for left lower extremity cellulitis on 04/15.CT chest without any focal findings of pneumonia. s/p iv van and zosyndisch arge on take Augmentin till 04/24/24 Extravasat ion of intravenous contrast medium 392227988 T80.818A In acute care found to have left arm swelling tx conservati vely with warm compress and elevation. Atrial fibrillation 4943 6004 I48.0 Continue eliquis 2.5 mg BID for AC.Monitor HR and bleeding risk. Hypothyroidism 35990737 E03.8 TSH WNL.Contin ue levothyrox ine 175 mcgMonitor TSH yearly. Gastroesop hageal reflux disease without esophagitis 136502912 K21.9 No current sxs.Contin ue omeprazole 40 mg BID.Monito r sxs Osteoarthritis 067075736 M15.0 lidocaine patch right shoulder.f entanyl 50 mcg patch q72 hrAPAP 1000 mg tidtramado l 25 mg bid prnglucosa mine 500 mg tid Type 2 russel betes mellitus 22671574 E11.9 continue lantus 15 units at [facility] [place] [id number] [facility] [address] [place] [address] 05/02/2024 09:59:17 05/03/2024 11:50:42 Cellulitis of left lower limb 0426930176 8219641 L03.116 05/02: see hpiLLE edema and pain, [...] 04/24/24 Extravasat ion of intravenous contrast medium 975625759 T80.818A In acute care found to have left arm swelling tx conservati vely with warm compress and elevation. Atrial fibrillation 4943 6004 I48.0 Continue eliquis 2.5 mg BID for AC.Monitor HR and bleeding risk.repor table sx reviewed. Hypothyroidism 97037817 E03.8 TSH WNL.Contin ue levothyrox ine 175 mcgMonitor TSH yearly. Gastroesop hageal reflux disease without esophagitis 826948068 K21.9 No current sxs.Contin ue omeprazole 40 mg BID.Monito r sxs Osteoarthritis 719159224 M15.0 fentanyl 50 mcg patch q72 hrAPAP 1000 mg tidtramado l 25 mg bid prnglucosa mine 500 mg tid Type 2 russel betes mellitus 45657984 E11.9 continue lantus 15 units at [facility] [id number] NELDA MANSFIELD [address] [address] 05/05/2024 10:15:43 05/10/2024 15:49:53 Cellulitis of left lower limb 7298976110 1965445 L03.116 05/05: Ultrasound results reviewed, negative for [...] reviewed. Gastroesop hageal reflux disease without esophagitis 301690457 K21.9 stableNo current sxs.Contin ue omeprazole 40 mg BID.Monito r sxs Osteoarthritis 383755916 M15.0 stablefent anyl 50 mcg patch q72 hrAPAP 1000 mg tidtramado l 25 mg bid prn Type 2 russel betes mellitus 21628293 E11.9 continue lantus 15 units at [facility] [id number] NELDA MANSFIELD [address] [address] 05/09/2024 11:51:06 05/10/2024 16:10:25 Cellulitis of left lower limb 3660266254 2499246 L03.116 resolved Atrial fibrillation 4943 6004 I48.0 stable without sx.Continu e eliquis 2.5 mg BID for AC.Monitor HR and bleeding risk.repor table sx reviewed. Gastroesop hageal reflux disease without esophagitis 102193213 K21.9 stableNo current sxs.Contin ue omeprazole 40 mg BID.Monito r sxs Osteoarthritis 554480606 M15.0 stablefent anyl 50 mcg patch q72 hrAPAP 1000 mg tidtramado l 25 mg bid Type 2 russel betes mellitus 78721316 E11.9 continue lantus 15 units at HSmonitor FS- mainly under 200sshe is without hypo/hyper glucose sx. Edema 931113563 R60.0 BLE decreased edema note, she is wearing wilma wrapsconti nue torsemide 20 mg daily and metolazone as ord. [id number] NELDA MANSFIELD [facility] e [address] [place] [address] [place] [address] 05/12/2024 11:47:54 05/13/2024 11:46:56 Atrial fibrillation 20562307 I48.0 stable without sx.Continu e eliquis 2.5 mg BID for AC.Monitor HR and bleeding risk.repor table sx reviewed. Gastroesop hageal reflux disease without esophagitis 352765225 K21.9 stableNo current sxs.Contin ue omeprazole 40 mg BID.Monito r sxs Osteoarthritis 814094434 M15.0 stablefent anyl 50 mcg patch q72 hrAPAP 1000 mg tidtramado l 25 mg bid Type 2 russel betes mellitus 65382598 E11.9 continue lantus 15 units at [facility] FS- mainly under 200sshe is without hypo/hyper glucose sx. Edema 625760037 R60.0 BLE decreased edema note, she is wearing wilma wrapsconti nue torsemide 20 mg daily and metolazone as ord. Spinal roni nosis of lumbar region 09597367 M48.062 fentanyl patch 50 mcgprednis one 10 mg daily - taper to start 05/16/24de creasing by 1 mg per week. [id number] NELDA MANSFIELD [address] [place] [address] 05/16/2024 08:25:38 05/18/2024 09:23:51 Atrial fibrillation 21381255 I48.0 stable without sx.Continu e eliquis 2.5 mg BID for AC.Monitor HR and bleeding risk.repor table sx reviewed. Gastroesop hageal reflux disease without esophagitis 881610317 K21.9 stableNo current sxs.Contin ue omeprazole 40 mg BID.Monito r sxs Osteoarthritis 708679394 M15.0 stablefent anyl 50 mcg patch q72 hrAPAP 1000 mg tidtramado l 25 mg bid Type 2 russel betes mellitus 16908880 E11.9 [facility]- mainly under 200sshe is without hypo/hyper glucose sx. Edema 338103613 R60.0 BLE decreased edema note, she is wearing wilma wrapsconti nue torsemide 20 mg daily and metolazone as ord. Spinal roni nosis of lumbar region 03513520 M48.062 fentanyl patch 50 mcgprednis one 10 mg daily - taper to start 05/16/24de creasing by 1 mg per week. Itching of skin 08688488 0 L29.9 left shoulder is without redness or rashencour aged to apply lotion dailywill start claritin 10 mg daily. 680694 NELDA MANSFIELD [address] [place] [address] 05/19/2024 11:11:15 05/23/2024 15:12:03 Atrial fibrillation 72161859 I48.0 stable without sx.Continu e eliquis 2.5 mg BID for AC.Monitor HR and bleeding risk.repor table sx reviewed. Gastroesop hageal reflux disease without esophagitis 471566332 K21.9 stableNo current sxs.Contin ue omeprazole 40 mg BID.Monito r sxs Osteoarthritis 160857779 M15.0 stablefent anyl 50 mcg patch q72 hrAPAP 1000 mg tidtramado l 25 mg bid Type 2 russel betes mellitus 44219379 E11.9 continue lantus 15 units at [facility] FS- mainly under 200sshe is without hypo/hyper glucose sx. Edema 792151253 R60.0 BLE decreased edema note, she is wearing wilma wrapsconti nue torsemide 20 mg daily and metolazone as ord. Spinal roni nosis of lumbar region 13643309 M48.062 fentanyl patch 50 mcgprednis one 10 mg daily - taper to start 05/16/24de creasing by 1 mg per week. Itching of skin 83317059 0 L29.9 left shoulder is without redness or rashencour aged to apply lotion dailywill start claritin 10 mg daily. 214638 NELDA MANSFIELD [address] [place] [address] 05/23/2024 07:53:51 05/24/2024 13:52:57 Atrial fibrillation 36783611 I48.0 stable without sx.Continu e eliquis 2.5 mg BID for AC.Monitor HR and bleeding risk.repor table sx reviewed. Gastroesop hageal reflux disease without esophagitis 438348640 K21.9 stableNo current sxs.Contin ue omeprazole 40 mg BID.Monito r sxs Osteoarthritis 920969230 M15.0 stablefent anyl 50 mcg patch q72 hrAPAP 1000 mg tidtramado l 25 mg bid Type 2 russel betes mellitus 15145470 E11.9 continue lantus 15 units at [facility]- mainly under 200sshe is without hypo/hyper glucose sx. Edema 898736812 R60.0 BLE decreased edema note, she is wearing wilma wrapsconti nue torsemide 20 mg daily and metolazone as ord. Spinal roni nosis of lumbar region 90235200 M48.062 fentanyl patch 50 mcgprednis one 10 mg daily - taper to start 05/16/24de creasing by 1 mg per week. Itching of skin 39874136 0 L29.9 left shoulder is without redness or rashencour aged to apply lotion dailywill start claritin 10 mg daily. [id number] NELDA MANSFIELD [address] [place] [address] 05/27/2024 07:54:05 05/30/2024 13:39:41 Atrial fibrillation 29311390 I48.0 stable without sx.Continu e eliquis 2.5 mg BID for AC.Monitor HR and bleeding risk.repor table sx reviewed. Gastroesop hageal reflux disease without esophagitis 728815700 K21.9 stableNo current sxs.Contin ue omeprazole 40 mg BID.Monito r sxs Osteoarthritis 637753206 M15.0 stablefent anyl 50 mcg patch q72 hrAPAP 1000 mg tidtramado l 25 mg bid Type 2 russel betes mellitus 24859311 E11.9 continue lantus 15 units at [facility]- mainly under 200sshe is without hypo/hyper glucose sxwill need updated A1c as we taper off prednisone Edema 714605069 R60.0 improved with compressio n stockings. continue torsemide 20 mg daily and metolazone as ord. Spinal roni nosis of lumbar region 09179522 M48.062 fentanyl patch 50 mcgprednis one 10 mg daily - tapering off 1 mg per weekdecrea sing by 1 mg per week. Itching of skin 69524513 0 L29.9 stableleft shoulder is without redness or rashencour aged to apply lotion dailywill start claritin 10 mg daily. [id number] NELDA MANSFIELD [address] [place] [address] 06/02/2024 09:27:55 06/06/2024 12:53:38 Atrial fibrillation 71483382 I48.0 stable without sx.Continu e eliquis 2.5 mg BID for AC.Monitor HR and bleeding risk.repor table sx reviewed. Gastroesop hageal reflux disease without esophagitis 699981400 K21.9 reports hypogastri c non radiating pain+ nausea no vomitinNo current sxs.Contin ue omeprazole 40 mg BID.Monito r sxs Osteoarthritis 173332202 M15.0 stablefent anyl 50 mcg patch q72 hrAPAP 1000 mg tidtramado l 25 mg bid Type 2 russel betes mellitus 69632718 E11.9 stablecont inue lantus 15 units at [facility]- mainly under 200sshe is without hypo/hyper glucose sx Edema [id number] R60.0 improved with compressio n stockings. continue torsemide 20 mg daily and metolazone as ord. Blister of lower leg without infection 47056078 S80.822A initially fluid filled with clear liquidnow burst-anais ent recently tx for cellulitis , I prefer wound to be tx with and antispetic nursing ord to cleanse with NS 0r warm soap and water dialy, paint with betadine with non adhesive dressing and kerlix. [id number] BRYAN B[address] [address] 06/06/2024 08:41:07 06/07/2024 11:48:57 Atrial fibrillation [id number] I48.0 stable without sx.Continu e eliquis 2.5 mg BID for AC.Monitor HR and bleeding risk.repor table sx reviewed. Gastroesop hageal reflux disease without esophagitis [id number] K21.9 No current sxs.Contin ue omeprazole 40 mg BID.Monito r sxs Osteoarthritis [id number] M15.0 stablefent anyl 50 mcg patch q72 hrAPAP 1000 mg tidtramado l 25 mg bid Type 2 russel betes mellitus 41693338 E11.9 stablecont inue lantus 15 units at [facility]- mainly under 200sshe is without hypo/hyper glucose sx Edema 600959232 R60.0 continue torsemide 20 mg daily and metolazone as ord. Blister of lower leg without infection 25660273 S80.822A initially fluid filled with clear liquidnow burst-anais ent recently tx for cellulitis , I prefer wound to be tx with and antispetic as well.adriani asia ord to cleanse with NS 0r warm soap and water dialy, paint with betadine cover with xeroform dressing and kerlix. [id number] BRYAN BERNARDO [address] [address] 06/16/2024 11:11:20 06/21/2024 11:07:01 Edema 381634665 R60.0 continue torsemide 20 mg daily and metolazone as ord. Blister of lower leg without infection 62377218 S80.822A initially fluid filled with clear liquidnow [...] recs to continue current tx ords. Dysuria 83453597 R30.0 send urine for UA with C&Swater encouraged to flush out toxins Fatigue 36848259 R53.83 recheck bmp, cbc, TSH,iron , ammonia and Vit B & D levels on 06/17 [id number] NELDA MANSFIELD [address] [place] [address] 06/27/2024 12:04:26 06/30/2024 11:21:08 Cellulitis of right lower limb [id number] 1391402 L03.115 2/2 diabetes and decreased skin integrity from venous stasis and chronic prednisone usetx with IV ancef in acute carecomple cassie po abx keflex on 06/24follo wed by Wound MD Venous ins ufficiency of leg 358430237 I87.2 chronic BLE edema/RLE acute DVT /right almanza erupted skin blisterdis cussed with nursing, continue eliquis and wound tx with xeroform Acute deep venous thrombosis of femoral vein 8478368224 54169 I82.419 non occlusive/ RLEon eliquis 5 mg BID Chronic heart failure 48 153235 I50.9 acute on chronic/el evated BNP tx with IV lasixCXR showed interstiti al markings but difficult to interpret due to underlying fibrosisco ntinue torsemide and metolazone monitor labs Edema 222174920 R60.0 chroniccon slag mixer referral to lymphedema 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 [id number] NELDA MANSFIELD [address] [place] [address] 06/30/2024 08:36:09 07/01/2024 12:09:02 Cellulitis of right lower limb [id number] 0845751 L03.115 completed abxdenies any pain, per nsg no erythema or warmth Venous ins ufficiency of leg 583490132 I87.2 chronic BLE edema/RLE acute DVT /right almanza erupted skin blisterdis cussed with nursing, continue eliquis and wound tx Acute deep venous thrombosis of femoral vein 2645042477 88306 I82.419 non occlusive/ RLEon eliquis 5 mg BID Chronic heart failure 48 441896 I50.9 acute on chronic/el evated BNP tx with IV lasixCXR showed interstiti al markings but difficult to interpret due to underlying fibrosisco ntinue torsemide and metolazone baseline crackles with hx of pulm. 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 Wound 121769468 T14.90 XA see pi2/2 to erupted blisterfol lowed by wound MD with recent changes to oil emulsion.shelbie kelly provided why tx was changedwil l resume previous tx order of NS and betadine per patient request and have wound re evaldiscus sed with nursing [id number] [facility] [address] [place] [address] 07/04/2024 10:17:37 07/05/2024 14:29:23 Venous insufficiency of leg 313780396 I87.2 stablechro gavin BLE edema/RLE acute DVT /right almanza erupted skin blisterdis cussed with nursing, continue eliquis and wound tx Acute deep venous thrombosis of femoral vein 3824726230 58917 I82.419 non occlusive/ RLEon eliquis 5 mg BID Chronic heart failure 48 259077 I50.9 acute on chronic/el evated BNP tx with IV lasixCXR showed interstiti al markings but difficult to interpret due to underlying fibrosisco ntinue torsemide and metolazone baseline crackles with hx of pulm. fibrosismo nitor labs Edema 051439870 R60.0 chronic/st abl;e with no increase on exam todayconsi jeff referral to lymphedema clinic - she often c/o pain, she is at increase risk for recurrent infection. Wound 517845533 T14.90 XA see pi2/2 to erupted blisterfol lowed by wound with recent changes to oil emulsion.shelbie kelly provided why tx was changedwil l resume previous tx order of NS and betadine per patient request and have wound re evaldiscus sed with nursing [id number] [facility] [address] [place] [address] 07/07/2024 08:16:53 07/08/2024 13:27:39 Venous insufficiency of leg 220493502 I87.2 stablechro gavin BLE edema/RLE acute DVT /right almanza erupted skin blisterdis cussed with nursing, continue eliquis and wound txseen by wound with new order changes made in pcc. Acute deep venous thrombosis of femoral vein 8324352827 99031 I82.419 non occlusive/ RLEon eliquis 5 mg BID Chronic heart failure 48 518600 I50.9 continue torsemide and metolazone baseline crackles with hx of pulm. fibrosismo nitor labs Edema 284199439 R60.0 chronic/st ableconsid er referral to lymphedema clinic - she often c/o pain, she is at increase risk for recurrent infection. [id number] [facility] [address] [place] [address] 07/11/2024 10:40:35 07/12/2024 12:07:39 Venous insufficiency of leg 489120975 I87.2 stablechro gavin BLE edema/RLE acute DVT /right almanza erupted skin blisterdis cussed with nursing, continue eliquis and wound txfollowed by wound /continu e current tx orders. Acute deep venous thrombosis of femoral vein 3133485007 64495 I82.419 non occlusive/ RLEon eliquis 5 mg BID Chronic heart failure 48 480314 I50.9 baseline BLE edema, otherwise no worsening edema notedconti nue torsemide and metolazone baseline crackles with hx of pulm. fibrosismo nitor labs Edema 556971970 R60.0 chronic/st ableconsid er referral to lymphedema clinic - she often c/o pain, she is at increase risk for recurrent infection. 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
== END 2025-02-20 14:28 | disposition home or self-care (01) ==
LOC: HO.MMNH3L 14:27
PROVIDERS: Visit Provider Student in an Organized Health Care Education/Training Program
DX: Z13.89 Encounter for screening for other disorder (principal)
CPT/HCPCS: 87086

== ENCOUNTER 2025-02-21 06:31 | Outpatient (REF) | payer MEDICARE, MEDICAID, SELFPAY ==
[2025-02-21 12:44] LABS: Appearance Urine Clear; Glucose Urine UA Negative (Negative); PH 6.0 (5.0-9.0); Specific Gravity - Urine 1.010 (1.005-1.025); UMIC TRIGGER UA YES
== END 2025-02-21 06:32 | disposition home or self-care (01) ==
LOC: HO.MMNH3L 06:31
PROVIDERS: Visit Provider Student in an Organized Health Care Education/Training Program
DX: J84.10 Pulmonary fibrosis, unspecified (principal); F06.70 Mild neurocognitive disorder due to known physiological condition without behavioral disturbance
CPT/HCPCS: 81001; 87086

== ENCOUNTER 2025-02-27 06:39 | Outpatient (REF) | payer MEDICARE, MEDICAID, SELFPAY ==
[2025-02-27 06:13] LABS: MANUAL DIFF FLAG NO
[2025-02-27 07:18] LABS: Hematocrit 33.0 % (37.0-47.0); Hemoglobin 10.6 g/dl (12.0-16.0); Imm Gran Abs Auto 0.12 X10*3/uL (0.00-0.03); Imm Gran Pct Auto 1.2 % (0.0-0.4); Lymphocytes Absolute Auto 2.0 X10*3/uL (1.2-4.9); Mean Corpuscular HGB Conc 32.1 g/dl (31.0-35.0); Mean Corpuscular Hemoglobin 31.7 pg (27.0-33.0); Mean Corpuscular Volume 98.8 fL (80.0-98.0); NRBC Abs Auto 0.000 X10*3/uL (0.0-0.012); NRBC Pct Auto 0.0 /100WBC (0.0-0.2); Platelet Count 274 X10*3/uL (160-400); Red Blood Count 3.34 X10*6/uL (4.20-5.50); White Blood Count 10.3 X10*3/uL (4.8-10.8)
[2025-02-27 07:29] LABS: Anion Gap 15 (12-20); Blood Urea Nitrogen 39 mg/dL (9-16); Calcium 8.8 mg/dL (8.4-10.2); Carbon Dioxide 31 mmol/L (22-29); Chloride 98 mmol/L (96-108); Estimated Glomerular Filt Rate 40; Potassium 3.2 mmol/L (3.3-5.1); Sodium 141 mmol/L (135-145)
== END 2025-02-27 06:40 | disposition home or self-care (01) ==
LOC: HO.MMNH3L 06:39
PROVIDERS: Visit Provider Family Medicine
DX: I10 Essential (primary) hypertension (principal)
CPT/HCPCS: 36415; 80048; 85025

== ENCOUNTER 2025-03-28 06:25 | Outpatient (REF) | payer MEDICARE, MEDICAID, SELFPAY ==
[2025-03-28 06:09] LABS: MANUAL DIFF FLAG NO
[2025-03-28 06:24] LABS: Hematocrit 37.8 % (37.0-47.0); Hemoglobin 12.2 g/dl (12.0-16.0); Imm Gran Abs Auto 0.44 X10*3/uL (0.00-0.03); Imm Gran Pct Auto 3.8 % (0.0-0.4); Lymphocytes Absolute Auto 2.4 X10*3/uL (1.2-4.9); Mean Corpuscular HGB Conc 32.3 g/dl (31.0-35.0); Mean Corpuscular Hemoglobin 32.4 pg (27.0-33.0); Mean Corpuscular Volume 100.3 fL (80.0-98.0); NRBC Abs Auto 0.000 X10*3/uL (0.0-0.012); NRBC Pct Auto 0.0 /100WBC (0.0-0.2); Platelet Count 203 X10*3/uL (160-400); Red Blood Count 3.77 X10*6/uL (4.20-5.50); White Blood Count 11.5 X10*3/uL (4.8-10.8)
[2025-03-28 06:39] LABS: Anion Gap 17 (12-20); Blood Urea Nitrogen 30 mg/dL (9-16); Calcium 9.1 mg/dL (8.4-10.2); Carbon Dioxide 28 mmol/L (22-29); Chloride 101 mmol/L (96-108); Estimated Glomerular Filt Rate 45; Potassium 4.8 mmol/L (3.3-5.1); Sodium 141 mmol/L (135-145)
== END 2025-03-28 06:26 | disposition home or self-care (01) ==
LOC: HO.MMNH3L 06:25
PROVIDERS: Visit Provider Family Medicine
DX: I10 Essential (primary) hypertension (principal)
CPT/HCPCS: 36415; 80048; 85025

== ENCOUNTER 2025-05-01 06:45 | Outpatient (REF) | payer MEDICARE, MEDICAID, SELFPAY ==
[2025-05-01 06:33] LABS: MANUAL DIFF FLAG NO
[2025-05-01 06:47] LABS: Hematocrit 35.8 % (37.0-47.0); Hemoglobin 11.4 g/dl (12.0-16.0); Imm Gran Abs Auto 0.24 X10*3/uL (0.00-0.03); Imm Gran Pct Auto 2.7 % (0.0-0.4); Lymphocytes Absolute Auto 1.5 X10*3/uL (1.2-4.9); Mean Corpuscular HGB Conc 31.8 g/dl (31.0-35.0); Mean Corpuscular Hemoglobin 32.8 pg (27.0-33.0); Mean Corpuscular Volume 102.9 fL (80.0-98.0); NRBC Abs Auto 0.000 X10*3/uL (0.0-0.012); NRBC Pct Auto 0.0 /100WBC (0.0-0.2); Platelet Count 224 X10*3/uL (160-400); Red Blood Count 3.48 X10*6/uL (4.20-5.50); White Blood Count 8.8 X10*3/uL (4.8-10.8)
--- OUTSIDE RECORDS SUMMARY | 2025-05-01 07:01 | XMS_ITS | Data Portability ---
Author Organization [facility], Main Office Address [address] [facility], [address] [place] [address] Care Team Providers Care Almond Roaster Name Role Phone KAREEM HAYNES 3RD FLOOR [...] Address Organization Details Recorded Time Severe pain 98814252 Active 2021 back pain BRYANNA URBANO NP [address] [facility], [address], [place], [address], [facility] 13:15:21 Adult failure to thrive syndrome 771814852 Active 2021 BRYANNA URBANO, MIKIE [address] [facility], [address], [place], [address], [facility] 2 13:15:35 Fall Active 2021 BRYANNA URBANO NP [address], [address], [place], [address], [facility] 2 13:15:44 Gastroes ophageal reflux disease without esophagi tis 036447892 Active 2021 BRYANNA URBANO NP [address] [facility], [address], [place], [address], [facility] 2 13:16:01 Osteoart hritis 659412756 Active 2021 BRYANNA URBANO NP [address] [facility], [address], [place], [address], [facility] 2 13:16:10 Mixed anxiety and depressi ve disorder 303134136 Active 2021 BRYANNA URBANO NP [address] [facility], [address], [place], [address], [facility] 3 10:40:32 Hypothyr oidism 78563690 Active 2021 BRYANNA URBANO NP [address] [facility], [address], [place], [address], [facility] 2 13:16:28 Osteopor osis 22423915 Active 2021 BRYANNA URBANO NP [address], [address], [place], [address], [facility] 13:17:10 Atrial fibrilla tion 99249550 Active 2021 BRYANNA URBANO, MIKIE [address], [address], [place], [address], [facility] 2 14:21:30 Hyperlip idemia 19903732 Active 2021 BRYANNA VELAPIN, FIELD SUPPORT TECHNICIAN [address], [address], [place], [address], [facility] 2 14:21:52 Spinal stenosis of lumbar region 43528039 Active 2021 Ana Damon MD [address], [address], [place], [address], [facility] 2 19:13:30 Edema 990334566 Active 2021 BRYANNA YOLIE, FIELD SUPPORT TECHNICIAN [address], [address], [place], [address], [facility] 2 13:22:11 Hypokale doretha 61276004 Active 2021 Ana Damon MD [address], [address], [place], [address], [facility] 2 23:44:02 Pancreat itis 77989320 Active 2021 BRYANNA URBANO, FIELD SUPPORT TECHNICIAN [address] [facility], [address], [place], [address], [facility] 2 14:58:02 Generali zed osteoart hritis 915223988 Active 2021 Ana Damon MD [address] [facility], [address], [place], [address], [facility] 2 14:42:49 Contusio n 713000408 Active 2021 right buttock BRYANNA YOLIE, FIELD SUPPORT TECHNICIAN [address] [facility], [address], [place], [address], [facility] 3 12:37:52 COVID-19 306757274 Active 2021 BRYANNA YOLIE, FIELD SUPPORT TECHNICIAN [address], [address], [place], [address], [facility] 2 10:44:44 Dislocat ion of shoulder joint 031432574 Active 2022 Margarette Awad NP [address], [address], [place], [address], [facility] 3 11:28:04 Chronic neck pain 64756407977 07 Active 2022 Ana Damon MD [address], [address], [place], [address], [facility] 3 21:36:27 Nausea 241733518 Active 2022 Ana Damon MD [address], [address], [place], [address], [facility] 3 21:36:31 Type 2 diabetes mellitus 29336106 Active 2022 Ana Damon MD [address], [address], [place], [address], [facility] 3 20:16:36 Contusio n of face 137025252 Active 2022 BRYANNA URBANO NP [address], [address], [place], [address], [facility] 3 12:37:45 Urinary tract infectio us disease 21924453 Active 2023 NELDA MANSFIELD [address], [address], [place], [address], [facility] 4 14:59:19 Dyspnea 512326756 Active 2023 NELDA MANSFIELD [address], [address], [place], [address], [facility] 4 22:03:33 Neuropat hy 959597499 Active 2023 NELDA MANSFIELD [address], [address], [place], [address], [facility] 4 22:17:58 Constipa tion 14060847 Active 2023 NELDA MANSFILED [address], [address], [place], [address], [facility] 4 22:22:39 Chronic pain 07995413 Active 2023 Ana Damon MD [address], [address], [place], [address], [facility] 4 10:49:48 Cellulit is 680876733 Active 2023 NELDA MANSFIELD [address] [facility], [address], [place], [address], [facility] 4 09:09:15 Manav contreras [id number] Completed 202306/06/2024 on predniso ne 10 mg daily NELDA MANSFIELD [address] [place] [address], [address], [place], [address], [facility] 4 15:48:25 Venous insuffic iency of lower limb 667065829 Active 2023 NELDA MANSFIELD [address] [place] [address], [address], [place], [address], [facility] 4 02:16:11 Chronic heart failure 47429921 Active 2023 NELDA MANSFIELD [address] [place] [address], [address], [place], [address], [facility] 4 02:24:16 Problem Notes None recorded. Medical Equipment None Reported. Allergies Allergen ID Allergen Name Allergen Category Reaction Reaction Severity Criticality Documentation Date Start Date Code Code System Note Provider Name and Address Organization Details Recorded Time 67940 amitripty line medicatio n Not available Not available Not available 09/25/2021 704 RxNorm BRYANNA MIKIE URBANO [address] [place] [address], [address], [place], [address], [facility] 2 13:14:24 43148 morphine medicatio n Not available Not available Not available 09/25/2021 7052 RxNorm BRYANNA YOLIE, MIKIE [address] [facility], [address], [place], [address], [facility] 2 13:14:30 52497 oxycodone medicatio n Not available Not available Not available 09/25/2021 7804 RxNorm BRYANNA YOLIE, MIKIE [address] [place] [address], [address], [place], [address], [facility] 2 13:14:37 42736 Demerol medicatio n Not available Not available Not available 09/25/2021 31658 1 RxNorm BRYANNA YOLIE, FIELD SUPPORT TECHNICIAN [address], [place], [address], [facility] 2 13:14:42 78379 Phenergan medicatio n Not available Not available Not available 09/25/2021 40793 8 RxNorm BRYANNA GRIPPIN, FIELD SUPPORT TECHNICIAN [address], [address], [place], [address], [facility] 2 13:14:50 24881 lactose food,medi cation Not available Not available Not available 09/25/2021 6211 RxNorm BRYANNA YOLIE, FIELD SUPPORT TECHNICIAN [address] [facility], [address], [place], [address], [facility] 2 13:14:59 Medications Name Sig Start [...] DateTime 07/07/2024 162.56 cm NELDA MANSFIELD [address] [facility], [address], [place], [address], [facility] 07/07/2024 08:58:12 Date Recorded Body height Provider Name an d Address Organization Details Last Updated DateTime 07/11/2024 162.56 cm NELDA MANSFIELD [address] [facility], [address], [place], [address], [facility] 07/11/2024 14:23:34 Date Recorded Body height Heart rate Oxygen saturation Oxygen saturation in Arterial blood by Pulse oximetry Provider Name and Address Organization Details Last Updated DateTime 07/21/2024 162.56 cm 78 /min 95 % 95 % NELDA MANSFIELD [address] [facility], [address], [place], [address] , [employer] 07/21/2024 15:42:40 Social History Question Answer Notes LastModified by Organizat ion Details LastModified Time Tobacco Smoking Status Former Smoker can't remember when she quit Ana Damon MD [address] [facility], [address], [place], [place], [address], [employer] 09/26/2021 19:09:18 Do You Have An Advance Directive? Yes Information not available 09/26/2021 What Is Your Code Status? DNR/DNI Information not available 09/25/2021 Where Do You Live? [facility]. Was Living With Son, But He Is Not Home During The Day. Information not available 05/29/2023 Legal Guardian? No Informati on not available 09/26/2021 Do You Have A Medical Power Of B2B Outside Sales Representative? Yes Invoked Information not available 09/26/2021 What [...] adjuvanted, quadrivalent, PF 05/21/2022 completed Dena maza, [facility] 08/17/2023 10:49:52 Influenza, adjuvanted, quadrivalent, PF 03/04/2023 completed Dena maza [facility] 08/17/2023 10:50:06 Past Encounters Encounter ID Performer Location Encounter Start Date Encounter Closed Date Diagnosis/Indication Diagnosis SNOMED-CT Code Diagnosis ICD10 Code Diagnosis IMO Codes Diagnosis Note [id number] BRYANNA URBANO NP [address] [address] 09/25/2021 09:13:56 09/30/2021 13:45:49 Severe pain 21604957 R52 fentanyl patch 50 mcgdilaudi d 1 mg q4hr prnprednis one 10 mg dailyrepos ition prnhospice consult and admission Osteoporosis 99322050 M8 1.0 methotrexa te 2.5 dronate 70 thursdaypred nisone 10 mg daily Osteoarthritis 074291545 M19.90 dilaudid 1 mg q4 hr prnfentany l 50 mcg patch Mixed anxi ety and depressive disorder 833674637 F41.8 wellbutrin xl 150 mg bid Hypothyroidism 19497853 E03.9 levothyrox ine 200 mcg daily Gastroesop hageal reflux disease without esophagitis 933933423 K21.9 omeprazole 40 mg daily Adult fail ure to thrive syndrome 646960854 R62.7 encourage po intake Fall W19.XXXA PT OT eval and treatfall precaution sfrequent safety checks Atrial fibrillation 4943 6004 I48.91 eliquis 5 mg bidlasix 40 mg daily Hyperlipidemia 34646120 E78.5 atorvastat in 40 mg daily [id number] MD KAREEM Whitaker [place] [address] [place] [address] 09/26/2021 15:54:36 09/30/2021 14:03:56 Osteoporosis 24568841 M81.0 Will d/c alendronat e Osteoarthritis 987605946 M15.0 Unclear what she is on MTX for, if it's OA or pulmonary fibrosis.C ontinue methotrexa te 2.5 mg weekly.Chelsi n control as above. Mixed anxi ety and depressive disorder 043107010 F41.8 Continue wellbutrin xl 150 mg BID.Monito r mood. Hypothyroidism 46470490 E03.8 With elevated TSH, but nl FT4. Will leave dosing as is for now, bayron. since pt is transition ing to hospice.Co ntinue levothyrox ine 200 mcg qd.No further labs. Gastroesop hageal reflux disease without esophagitis 622373772 K21.9 Continue omeprazole 40 mg qd.Monitor sxs/ Adult fail ure to thrive syndrome 950123911 R62.7 Continue oral supplement s as able. Fall W19.XXXA Unable to participat e in rehab.Cont inue fall precaution s.Monitor for safety. Atrial fibrillation 4943 6004 I48.0 Rate in good control on no rate controllin g meds.Leonora nue eliquis 5 mg BID for AC.Monitor HR and bleeding risk Hyperlipidemia 35879503 E78.49 Will d/c atorvastat inNo further labs Spinal roni nosis of lumbar region 57606048 M48.062 With continued distress, unclear how much is pain and how much is behavioral .Will start roxanol 5 mg q 4 hrs scheduled and q 1 hr prn. Hold for oversedati on.Continu e fentanyl patch 50 mcg q 72 hrs and dilaudid 1 mg q 4 hrs prnContinu e prednisone 10 mg qd.Hospice consult pending. [id number] MIKIE DUONG [address] [place] [address] 09/27/2021 10:49:34 09/30/2021 14:31:05 Mixed anxiety and depressive disorder 141481320 F41.8 wellbutrin xl 150 mg bid-pm dose is 50 mg a week decrease until donethen remeron can be startedris perdal 0.5 mg bidAIMs 0 Adult fail ure to thrive syndrome 543467271 R62.7 encourage po intakereme sonal 7.5 mg [id number] MIKIE DUONG [address] [place] [address] 09/30/2021 12:53:54 10/04/2021 13:57:38 Mixed anxiety and depressive disorder 700298026 F41.8 wellbutrin xl 150 mg bid-pm dose is 100 mg decrease for 7 days then discontinu ishan remeron can be startedris perdal 0.5 mg bid-decrea sed to 0.25 mg am, 0.5 mg hsAIMs 0 Adult fail ure to thrive syndrome 346812582 R62.7 encourage po intakereme sonal 7.5 mg hs when hs wellbutrin finished Spinal roni nosis of lumbar region 66732266 M48.062 fentanyl patch 50 mcg q72 daysdilaud id 1 mg q4hr prnprednis on 10 mg daily [id number] Ana Damon MD [address] [address] 10/01/2021 19:18:36 10/04/2021 14:59:14 Spinal stenosis of lumbar region 15961690 M48.062 Continue fentanyl patch 50 mcg q 72 hrs and dilaudid 1 mg q 4 hrs prnContinu e prednisone 10 mg qd.Reconsi jeff hospice consult if pt. not able to tolerate med changes as below. Mixed anxi ety and depressive disorder 085268322 F41.8 Continue Wellbutrin 150 mg qAM and PM dose 100 mg until 10/08 then d/c pm doseStart mirtazapin e 7.5 mg qhs on 10/08Contin ue risperdal 0.25 mg qam and 0.5 mg qhsMonitor effect. Adult fail ure to thrive syndrome 663156462 R62.7 encourage po intakeStar t remeron 7.5 mg hs when hs wellbutrin finished as above. [id number] BRYANNA URBANO NP [address] [address] 10/03/2021 10:04:53 10/09/2021 15:41:28 Adult failure to thrive syndrome 518741282 R62.7 encourage po intakereme sonal 7.5 mg hs when hs wellbutrin finished 10/08 Mixed anxi ety and depressive disorder 069789032 F41.8 wellbutrin xl 150 mg bid-pm dose is 100 mg decrease for 7 days then discontinu e 10/08then remeron can be startedris perdal 0.5 mg bid-decrea sed to 0.25 mg am, 0.5 mg hsAIMs 0 Severe pain 84594195 R52 fentanyl patch 50 mcgdilaudi d 1 mg q4hr prn-d/c due to lack of useprednis one 10 mg dailyrepos ition prnhospice consult and admissionr oxanol was d/c due to morphine allergy [id number] BRYANNA URBANO NP [address] [address] 10/09/2021 10:18:53 10/14/2021 14:25:24 Mixed anxiety and depressive disorder 447932177 F41.8 wellbutrin xl 150 mg bid-pm dose is 100 mg decrease for 7 days then discontinu e 10/08then remeron can be startedris perdal 0.5 mg hs-am dose d/cAIMs 0 Adult fail ure to thrive syndrome 462225665 R62.7 encourage po intakereme sonal 7.5 mg hs when hs wellbutrin finished 10/08 Severe pain 63824800 R52 fentanyl patch 50 mcgdilaudi d 1 mg q4hr prn-d/c due to lack of useprednis one 10 mg dailyrepos ition prnhospice consult and admissionr oxanol was d/c due to morphine allergy [id number] BRYANNA URBANO NP [address] [address] 10/11/2021 10:22:56 10/14/2021 15:05:22 Mixed anxiety and depressive disorder 436854445 F41.8 wellbutrin xl 150 mg bid-pm dose is 100 mg decrease for 7 days then discontinu e 10/08then remeron can be startedris perdal 0.5 mg hs-am dose d/cAIMs 0 Adult fail ure to thrive syndrome 961685781 R62.7 encourage po intakereme sonal 7.5 mg hs when hs wellbutrin finished 10/08 Severe pain 17193105 R52 fentanyl patch 50 mcgdilaudi d 1 mg q4hr prn-d/c due to lack of useprednis one 10 mg dailyrepos ition prnhospice consult and admissionr oxanol was d/c due to morphine allergy [id number] BRYANNA URBANO NP [address] [address] 10/14/2021 12:20:18 10/16/2021 14:26:14 Severe pain 95367250 R52 fentanyl patch 50 mcgprednis one 10 mg dailyrepos ition prnroxanol was d/c due to morphine allergy Mixed anxi ety and depressive disorder 680863975 F41.8 wellbutrin xl 150 mgremeron 7.5 mg dailyrispe rdal 0.5 mg hs-am dose d/cAIMs 0 Fall W19.XXXA PT OT eval and treatfall precaution sfrequent safety checks [id number] BRYANNA URBANO NP [address] [address] 10/16/2021 13:18:48 10/23/2021 10:49:11 Adult failure to thrive syndrome 062431697 R62.7 encourage po intakereme sonal 7.5 mg hs when hs wellbutrin finished 10/08 Mixed anxi ety and depressive disorder 667396975 F41.8 wellbutrin xl 150 mgremeron 7.5 mg dailyrispe rdal 0.5 mg hs-am dose d/cAIMs 0 Severe pain 99771650 R52 fentanyl patch 50 mcgprednis one 10 mg dailyrepos ition prnroxanol was d/c due to morphine allergy Edema 023639642 R60.9 lasix 40 mg daily will increase to bid for 7 days [id number] NELDA Gardiner [address] [address] 10/18/2021 11:22:25 10/23/2021 11:24:28 Adult failure to thrive syndrome 083013690 R62.7 Appetite improveden courage po intakereme sonal 7.5 mg QHSMonitor weights Mixed anxi ety and depressive disorder 874503039 F41.8 wellbutrin xl 150 mgremeron 7.5 mg dailyrispe rdal 0.5 mg hsMonitor moodPsych eval prn Severe pain 56539039 R52 fentanyl patch 50 mcgprednis one 10 mg dailyBack pain now well controlled Monitor Edema 867505438 R60.9 Lasix 40 mg BIDACE wraps BLEElevate legs as toleratedM onitor [id number] BRYANNA URBANO NP [address] [address] 10/21/2021 10:50:08 10/23/2021 11:52:29 Edema 433841341 R60.9 lasix 40 mg bidmetolaz one 2.5 mg tues, thursace wraps Severe pain 92829908 R52 fentanyl patch 50 mcgprednis one 10 mg dailyrepos ition prnroxanol was d/c due to morphine allergy [id number] BRYANNA URBANO NP [address] [place] [address] 10/24/2021 10:43:36 10/29/2021 12:14:04 Edema 296321697 R60.9 lasix 40 mg bidmetolaz one 2.5 mg tues, thurs, add a dose sundayace wraps Adult fail ure to thrive syndrome 707672156 R62.7 encourage po intakereme sonal 7.5 mg hs Mixed anxi ety and depressive disorder 642473667 F41.8 wellbutrin xl 150 mgremeron 7.5 mg dailyrispe rdal 0.5 mg hs- decrease hs dose to 0.25 mgAIMs 0 [id number] BRYANNA URBANO NP [address] [place] [address] 10/30/2021 10:59:13 11/05/2021 10:01:44 Adult failure to thrive syndrome 117782210 R62.7 encourage po intakereme sonal 7.5 mg hs Mixed anxi ety and depressive disorder 735626943 F41.8 wellbutrin xl 150 mgremeron 7.5 mg dailyrispe rdal 0.25 mg- discontinu eAIMs 0 Severe pain 03997746 R52 fentanyl patch 50 mcgprednis one 10 mg dailyrepos ition prnroxanol was d/c due to morphine allergy [id number] Ana Damon MD [address] [address] 11/19/2021 18:25:18 11/25/2021 15:04:26 Adult failure to thrive syndrome 663085851 R62.7 Doing much better. Wt. has been stable.Say s her appetite is good.Leonora nue mirtazapin e 7.5 mg qhs.Monito r wts. Mixed anxi ety and depressive disorder 098949533 F41.8 Mood good today.Cont inue wellbutrin XL 150 mg qd and mirtazapin e 7.5 mg qhsMonitor mood.Consu lt psych prn Severe pain 73396169 R52 Under good control on fentanyl patch 50 mcg q 3 days, prednisone 10 mg qd, and APAP prnRestart ing PT this week.Monit ro Edema 450931526 R60.0 Continue lasix 40 mg BID and metolazone 2.5 mg 2x/wk on & .Cont inue wilma wraps daily.Carmela tor Hypokalemia 41079889 E87 .6 With borderline low K+ for awhile. Has never been on K+ supplement .Will recheck next week and if still low will add KCL 10 meq qd.Monitor [id number] MIKIE DUONG [address] [place] [address], [place] [address] 12/12/2021 10:09:42 12/17/2021 16:08:08 Adult failure to thrive syndrome 652193017 R62.7 Doing much better. Wt. has been stable.Say s her appetite is good.Leonora nue mirtazapin e 7.5 mg qhs.Monito r wts. Mixed anxi ety and depressive disorder 788680196 F41.8 Mood good today.well butrin XL 150 mg qd and mirtazapin e 7.5 mg qhsMonitor mood.Consu lt psych prn Severe pain 17414878 R52 Under good control on fentanyl patch 50 mcg q 3 days, prednisone 10 mg qd, and APAP prnRestart ing PT this week.Monit ro Edema 942125727 R60.0 lasix 40 mg BIDmetolaz one 2.5 mg 2x/wk on & .Cont inue wilma wraps daily.Carmela tor Hypokalemia 78760054 E87 .6 With borderline low K+ for awhile. Has never been on K+ supplement .Will recheck next week and if still low will add KCL 10 meq qd.Monitor Atrial fibrillation 4943 6004 I48.0 eliquis 5 mg bidlasix 40 mg bid daily Gastroesop hageal reflux disease without esophagitis 068447008 K21.9 omeprazole 40 mg daily Hyperlipidemia 69783980 E78.49 atorvastat in 40 mg daily Hypothyroidism 20291513 E03.8 levothyrox ine 200 mcg daily Osteoarthritis 708758587 M15.0 fentanyl 50 mcg patch q72 hr Osteoporosis 07955934 M8 1.0 methotrexa te 2.5 len dronate 70 thursdaypred nisone 10 mg daily Spinal roni nosis of lumbar region 69875510 M48.062 fentanyl patch 50 mcg q72 hourspredn isone 10 mg daily Fall W19.XXXA PT OT eval and treatfall precaution sfrequent safety checks [id number] MIKIE DUONG [place] [address] [place] [address] rd [place] [address] 01/03/2022 14:55:57 01/06/2022 20:46:48 Pancreatitis 03924007 K85.90 monitor for symptomsmo nitor labs Adult fail ure to thrive syndrome 567887223 R62.7 Doing much better. Wt. has been stable.Say s her appetite is good.gary zapine 7.5 mg qhs.Monito r wts. Mixed anxi ety and depressive disorder 133920153 F41.8 Mood good today.well butrin XL 150 mg bidmirtaza pine 7.5 mg qhsMonitor mood.Consu lt psych prn Severe pain 54460548 R52 Under good control on fentanyl patch 50 mcg q 3 days,predn isone 10 mg qd,APAP 650 mg q4hr prnPT OT eval and treat prnMonitor Edema 713469372 R60.0 lasix 40 mg BIDmetolaz one 2.5 mg 2x/wk on & , thursday.Con tinue wilma wraps daily.Carmela tor Hypokalemia 62017953 E87 .6 With borderline low K+ for awhile. Has never been on K+ supplement .Monitor Atrial fibrillation 4943 6004 I48.0 eliquis 5 mg bidlasix 40 mg bid dailymetol azone 2.5 mg , Gastroesop hageal reflux disease without esophagitis 595689463 K21.9 omeprazole 40 mg daily Hyperlipidemia 58068623 E78.49 atorvastat in 40 mg daily Hypothyroidism 80835806 E03.8 levothyrox ine 200 mcg daily Osteoarthritis 106675941 M15.0 fentanyl 50 mcg patch q72 hr Osteoporosis 86026392 M8 1.0 prednisone 10 mg daily Spinal roni nosis of lumbar region 66380943 M48.062 fentanyl patch 50 mcg q72 hourspredn isone 10 mg daily Fall W19.XXXA PT OT eval and treatfall precaution sfrequent safety checks [id number] BRYANNA URBANO NP [address] [address] 01/06/2022 10:28:02 01/09/2022 13:18:55 Edema 507195198 R60.0 lasix 40 mg BIDmetolaz one 2.5 mg 2x/wk on thursday.Con tinue wilma wraps daily.Carmela tor Pancreatitis 19754153 K8 5.90 monitor for symptomsmo nitor labs [id number] BRYANNA URBANO NP [address] [address] 01/08/2022 12:46:02 01/10/2022 16:30:00 Edema 929344877 R60.0 lasix 40 mg BIDmetolaz one 2.5 mg 2x/wk on thursday.Con tinue wilma wraps daily-comp ression stockingsM onitor Pancreatitis 26250596 K8 5.90 monitor for symptomsmo nitor labs [id number] BRYANNA URBANO NP [address] [address] 01/10/2022 11:53:05 01/14/2022 12:50:34 Hypothyroidism 10046248 E03.8 levothyrox ine 200 mcg daily-incr ease to 225 mcgrecheck tsh-free T4 in 6 weeks [id number] Ana Damon MD [address] [address] 02/11/2022 16:58:31 02/19/2022 16:14:54 Hypothyroidism 25741330 E03.8 Levothyrox ine was increased from 200 mcg qd to 225 mcg qd on 01/13 due to TSH of 12.24. Free T4 was WNL.Due for recheck of TSH and FT4 in a week or two. Adult fail ure to thrive syndrome 476964040 R62.7 Doesn't really have this dx anymore. Her wt. has been stable and her appetite is good.Leonora nue mirtazapin e 7.5 mg qhs.Monito r wts. Mixed anxi ety and depressive disorder 277550934 F41.8 Mood good today.Cont inue wellbutrin XL 150 mg qd and mirtazapin e 7.5 mg qhsMonitor mood.Psych following, may try a GDR. Edema 560175152 R60.0 Continue lasix 40 mg BID and metolazone 2.5 mg 2x/wk on & .Cont inue WILMA wraps qd.Monitor Chronic pancreatitis 235 449037 K86.1 Under good control on fentanyl patch 50 mcg q 3 days, prednisone 10 mg qd, and APAP 650 mg q 6 hrs prnMonitor . Generalize d osteoarthritis 319054329 M15.0 Pain control as above.Also diclofenac gel to shoulders BID and hands prn.Will add lidocaine patches to shoulders, low back and elbows as needed.PT/ OT as needed.Mon itor [id number] MIKIE UDONG [address] [address] 02/25/2022 11:22:33 03/10/2022 20:26:15 Hypothyroidism 36778085 E03.8 levothyrox ine 225 mcgrecheck tsh-free T4 in 6 weeks Spinal roni nosis of lumbar region 37973959 M48.062 fentanyl patch 50 mcg q72 hourspredn isone 10 mg daily [id number] BRYANNA URBANO NP [address] [address] 03/28/2022 11:18:57 04/03/2022 10:05:40 Generalized osteoarthritis 222527380 M15.0 tramadol 25 mg q6hr prndiclofe nac gel to shoulders BID and hands prn.Will add lidocaine patches to shoulders, low back and elbows as needed.PT/ OT as needed.Mon itor Severe pain 92263004 R52 Under good control on fentanyl patch 50 mcg q 3 days,predn isone 10 mg qd,APAP 650 mg q4hr prnPT OT eval and treat prnMonitor [id number] BRYANNA URBANO NP [address] [place] [address] 04/04/2022 10:53:36 04/08/2022 15:25:03 Mixed anxiety and depressive disorder [id number] F41.8 Mood good today.well butrin XL 150 mg bidmirtaza pine 7.5 mg qhsMonitor mood.Consu lt psych prn Severe pain 10298325 R52 fentanyl patch 50 mcg q 3 days,predn isone 10 mg qd,APAP 1000 mg tidtramado l 25 mg bid prnPT OT eval and treat prnMonitor Edema 854581289 R60.0 lasix 40 mg BIDmetolaz one 2.5 mg 2x/wk on & , thursday.Con tinue wilma wraps daily.Carmela tor Hypokalemia 35550990 E87 .6 With borderline low K+ for awhile. Has never been on K+ supplement .Monitor Atrial fibrillation 4943 6004 I48.0 eliquis 5 mg bidlasix 40 mg bid dailymetol azone 2.5 mg , Gastroesop hageal reflux disease without esophagitis 726648606 K21.9 omeprazole 40 mg daily Hyperlipidemia 28497094 E78.49 monitor Hypothyroidism 99704929 E03.8 levothyrox ine 225 mcg daily Osteoarthritis 492144060 M15.0 fentanyl 50 mcg patch q72 hrAPAP 1000 mg tidtramado l 25 mg bid prnglucosa mine 500 mg tid Osteoporosis 02441736 M8 1.0 prednisone 10 mg daily Spinal roni nosis of lumbar region 80884662 M48.062 fentanyl patch 50 mcg q72 hourspredn isone 10 mg daily Fall W19.XXXA PT OT eval and treatfall precaution sfrequent safety checks Adult fail ure to thrive syndrome 161281293 R62.7 Doing much better. Wt. has been stable.Say s her appetite is good.gary zapine 7.5 mg qhs.Monito r wts. Generalize d osteoarthritis 377569049 M15.0 tramadol 25 mg bid prndiclofe nac gel to shoulders BID and hands prn.Will add lidocaine patches to shoulders, low back and elbowsgluc osamine 500 mg bidPT/OT as needed.Mon itor [id number] BRYANNA URBANO NP [address] [address] 04/10/2022 12:09:08 04/22/2022 16:17:48 Generalized osteoarthritis 844127343 M15.0 tramadol 25 mg bid prndiclofe nac gel to shoulders BID and hands prn.Will add lidocaine patches to shoulders, low back and elbowsgluc osamine 500 mg bidtizanad ine 2 mg bidPT/OT as needed.Mon itor Severe pain 64802434 R52 fentanyl patch 50 mcg q 3 days,predn isone 10 mg qd,APAP 1000 mg tiddiclofe nac gel and lido patchestiz anidine 2 mg bidtramado l 25 mg bid prnPT OT eval and treat prnMonitor [id number] BRYANNA URBANO NP [address] [address] 05/07/2022 10:29:27 05/09/2022 15:20:45 Pancreatitis 84883369 K85.90 monitor for symptomsmo nitor labs Mixed anxi ety and depressive disorder 271317036 F41.8 Mood good today.well butrin XL 150 mg bidmirtaza pine 7.5 mg qhsMonitor mood.Consu lt psych prn Severe pain 53459783 R52 fentanyl patch 50 mcg q 3 days,predn isone 10 mg qd,APAP 1000 mg tidtramado l 25 mg bid prnPT OT eval and treat prnMonitor Edema 269786995 R60.0 lasix 40 mg BIDmetolaz one 2.5 mg 2x/wk on & , thursday.Con tinue wilma wraps daily.Carmela tor Hypokalemia 51390805 E87 .6 With borderline low K+ for awhile. Has never been on K+ supplement .Monitor Atrial fibrillation 4943 6004 I48.0 eliquis 5 mg bid-on hold due to buttock bruiselasi x 40 mg bid dailymetol azone 2.5 mg , , doan Gastroesop hageal reflux disease without esophagitis 952699944 K21.9 omeprazole 40 mg daily Hyperlipidemia 48212178 E78.49 monitor Hypothyroidism 44397372 E03.8 levothyrox ine 225 mcg daily Osteoarthritis 199791491 M15.0 fentanyl 50 mcg patch q72 hrAPAP 1000 mg tidtramado l 25 mg bid prnglucosa mine 500 mg tid Osteoporosis 48213026 M8 1.0 prednisone 10 mg daily Spinal roni nosis of lumbar region 05574168 M48.062 fentanyl patch 50 mcg q72 hourspredn isone 10 mg daily Fall W19.XXXA PT OT eval and treatfall precaution sfrequent safety checks Adult fail ure to thrive syndrome 462196024 R62.7 Doing much better. Wt. has been stable.Say s her appetite is good.gary zapine 7.5 mg qhs.Monito r wts. Generalize d osteoarthritis 258604429 M15.0 tramadol 25 mg bid prndiclofe nac gel to shoulders BID and hands prn.Will add lidocaine patches to shoulders, low back and elbowsgluc osamine 500 mg bidPT/OT as needed.Mon itor Contusion 869521753 T14. 8XXA monitor bruising for extension or lesseningh old eliquis [id number] Samina Wilburn MD [address] [address] 05/30/2022 07:35:26 06/04/2022 16:14:23 Chronic pain 35725254 G89.29 diclofenac gel 1% to shoulders bid, to both hands and spine prnfentany l patch 50 mcg q72 hsalonpas patch to right shoulder dailyAPAP 1000 mg tidtramado l 25 mg bidtizanid ine 2 mg bidprednis one 10 mg dailyPT/OT /PM&R prnwill monitor Mixed anxi ety and depressive disorder 542696814 F41.8 bupropion SR 150 mg dailymirta zapine 7.5 mg at hswill monitor Hypothyroidism 12123727 E03.8 levothyrox ine 225 mcg dailywill monitor Atrial fibrillation 4943 6004 I48.0 consider restart ACheld due to hematoma Type 2 russel betes mellitus 97410293 E11.9 insulin aspart per sliding scalewill monitor Edema 561749432 R60.0 furosemide 40 mg dailymetol azone 2.5 mg daily on T, Th, Sawill monitor Gastroesop hageal reflux disease without esophagitis 132588432 K21.9 omeprazole 40 mg bidwill monitor Recurrent pancreatitis 529148321 K86.1 fu GI prnlow fat dietwill monitor [id number] BRYANNA URBANO NP KAREEM HAYNES [address] [place] [address] 07/21/2022 10:43:42 08/01/2022 13:30:09 COVID-19 808756611 U07.1 07/20 covid positiveen courage po food and fluidscons ider ivf for anorexiaco nsider paxlovid or decadron for symptomsse nd to ED for decompensa tion [id number] BRYANNA URBANO NP [address] [address] 07/23/2022 11:28:07 08/01/2022 14:08:08 COVID-19 437550736 U07.1 07/20 covid positiveen courage po food and fluidscons ider ivf for anorexiaco nsider paxlovid or decadron for symptomsse nd to ED for decompensa tion Chronic pain 19548494 G8 9.29 diclofenac gel 1% to shoulders bid, to both hands and spine prnfentany l patch 50 mcg q72 hsalonpas patch to right shoulder dailyAPAP 1000 mg tidtramado l 25 mg bidtizanid ine 2 mg bidprednis one 10 mg dailyPT/OT /PM&R prnwill monitor Mixed anxi ety and depressive disorder 401508298 F41.8 bupropion SR 150 mg dailymirta zapine 7.5 mg at hswill monitor Hypothyroidism 22180545 E03.8 levothyrox ine 225 mcg dailywill monitor Atrial fibrillation 4943 6004 I48.0 eliquis 2.5 mg bidmonitor for any hematomas Type 2 russel betes mellitus 82962291 E11.9 insulin aspart per sliding scalewill monitor Edema 886680555 R60.0 furosemide 40 mg dailymetol azone 2.5 mg daily on T, Th, Sawill monitor Gastroesop hageal reflux disease without esophagitis 178786972 K21.9 omeprazole 40 mg bidwill monitor Recurrent pancreatitis 826876923 K86.1 fu GI prnlow fat dietwill monitor [id number] BRYANNA URBANO NP [facility] [place] [address] [place] [address] 07/25/2022 10:22:57 08/01/2022 15:15:29 COVID-19 248100959 U07.1 07/20 covid positiveen courage po food and fluidscons ider ivf for anorexiaco nsider paxlovid or decadron for symptomsse nd to ED for decompensa tion [id number] BRYANNA URBANO NP [address] [address] 07/30/2022 11:27:21 08/01/2022 15:57:11 COVID-19 188346921 U07.1 07/20 covid positive-a symptomati c, recovered by dateencour age po food and fluidscons ider ivf for anorexiaco nsider paxlovid or decadron for symptomsse nd to ED for decompensa tion [id number] BRYANNA URBANO NP [address] [address] 07/31/2022 12:15:38 08/05/2022 18:21:58 COVID-19 128270312 U07.1 07/20 covid positive-a symptomati c, recovered by dateencour age po food and fluidscons ider ivf for anorexiaco nsider paxlovid or decadron for symptomsse nd to ED for decompensa tionCXR ordered for 07/31 Pancreatitis 22829252 K8 5.90 monitor for symptomsmo nitor labs [id number] BRYANNA URBANO NP [address] [address] 08/01/2022 11:59:17 08/06/2022 08:14:07 COVID-19 393830388 U07.1 07/20 covid positive-a symptomati c, recovered by dateencour age po food and fluidscons ider ivf for anorexiaco nsider paxlovid or decadron for symptomsse nd to ED for decompensa tionCXR ordered for 07/31-negati ve for chf or pna [id number] MIKIE Dasilva [address] [facility] [place] [address] 08/09/2022 10:30:12 08/13/2022 13:00:41 COVID-19 764120201 U07.1 resolved- no new treatment in hospital documentof f isolation precaution scovid rapid negative in facility on 08/09/22 per nursingmon itor for sequelae note: 07/20 covid positive-a symptomati c, recovered by dateencour age po food and fluidscons ider ivf for anorexiaco nsider paxlovid or decadron for symptomsse nd to ED for decompensa tionCXR ordered for 07/31-negati ve for chf or pna Pancreatitis 02389581 K8 5.90 was treated with ivf, medication s, and pain adjuncts- now improvedmo nitor for symptomsav oid fatty foods on low fat dietmonito r labs Chronic pain 69385107 G8 9.29 contdiclof enac gel 1% to shoulders bid, to both hands and spine prnfentany l patch 50 mcg q72 hsalonpas patch to right shoulder dailyAPAP 1000 mg tidtramado l 25 mg bidtizanid ine 2 mg bidprednis one 10 mg dailyPT/OT for weakness and painwill monitor Recurrent pancreatitis 294464811 K86.1 fu GI prnlow fat dietwill monitor Dislocatio n of shoulder joint 862420180 S43.004A pt has right shoulder dislocatio ncontinue pain meds as belowsling and swath as toleratedp assive romPT/OTfu with Dr Velasquez outptmonit or for cms, pulses, disclorati on [id number] MIKIE DUONG [address] [facility] [place] [address] 08/11/2022 10:07:53 08/13/2022 13:35:33 Pancreatitis 74458387 K85.90 monitor for symptomsmo nitor labswas treated with ivf, medication s, and pain adjuncts- now improvedmo nitor for symptomsav oid fatty foods on low fat diet Dislocatio n of shoulder joint 401179779 S43.004A pt has chronic right shoulder dislocatio ncontinue pain medssling and swath as toleratedp assive romPT/OTfu with Dr Velasquez outptmonit or for cms, pulses, disclorati on [id number] MIKIE DUONG [place] [address] [facility] [place] [address] 08/25/2022 11:17:28 08/27/2022 14:05:17 Pancreatitis 58669569 K85.90 monitor for symptomsmo nitor labswas treated with ivf, medication s, and pain adjuncts- now improvedmo xifloxin 400 mg daily x4 daysmonito r for symptoms avoid fatty foods on low fat diet Dislocatio n of shoulder joint 607405024 S43.004A pt has chronic subluxatio n right shoulder dislocatio ncontinue pain meds as belowsling and swath as toleratedp assive romPT/OTfu with Dr Velasquez outptmonit or for cms, pulses, disclorati on Chronic pain 30041006 G8 9.29 contdiclof enac gel 1% to shoulders bid, to both hands and spine prnfentany l patch 50 mcg q72 hsalonpas patch to right shoulder dailyAPAP 1000 mg tidtramado l 25 mg bidtizanid ine 2 mg bidprednis one 10 mg dailyPT/OT for weakness and painwill monitor COVID-19 726570560 U07.1 resolved- no new treatment in hospital documentof f isolation precaution scovid rapid negative in facility on 08/09/22 per nursingmon itor for sequelae note: 07/20 covid positive-a symptomati c, recovered by dateencour age po food and fluidscons ider ivf for anorexiaco nsider paxlovid or decadron for symptomsse nd to ED for decompensa tionCXR ordered for 07/31-negati ve for chf or pna Recurrent pancreatitis 540279783 K86.1 f/u GI prnlow fat dietwill monitor [id number] BRYANNA URBANO NP KAREEM HAYNES [address] [facility] [place] [address] 09/04/2022 10:39:19 09/08/2022 15:11:55 Dislocation of shoulder joint 180671521 S43.004A pt has chronic subluxatio n right shoulder dislocatio ncontinue pain meds as belowsling and swath as tolerated for comfort prnPT/Edilson/ u with Dr Velasquez outptmonit or for cms, pulses, disclorati on Mixed anxi ety and depressive disorder 165420475 F41.8 bupropion SR 150 mg dailymirta zapine 7.5 mg at hswill monitor [id number] Samina Wilburn MD [address] [place] [address] 10/01/2022 10:06:00 10/03/2022 11:00:52 Atrial fibrillation 14681161 I48.0 apixaban 2.5 mg bidwill monitor Recurrent pancreatitis 034393397 K86.1 fu GIlow fat dietwill monitor Gastroesop hageal reflux disease without esophagitis 380641822 K21.9 omeprazole 40 mg bidwill monitor Type 2 russel betes mellitus 04206436 E11.9 insulin aspart per sliding scalewill monitor Chronic pain 20548258 G8 9.29 diclofenac gel 1% to shoulders bid, to both hands and spine prnfentany l patch 50 mcg q72 hsalonpas patch to right shoulder dailyAPAP 1000 mg tidtramado l 25 mg bidtizanid ine 2 mg bidprednis one 10 mg dailyPT/OT /PM&R prnwill monitor Peripheral edema 3911780 00 R60.0 metolazone 2.5 mg , Th, Sufurosemi de 40 mg bidwill monitor Hypothyroidism 74158004 E03.8 levothyrox ine 225 mcg dailywill monitor Mixed anxi ety and depressive disorder 599424750 F41.8 bupropion SR 150 mg dailymirta zapine 7.5 mg at hstizanidi ne 2 mg bidwill monitor Essential hypertension 38666539 I10 metolazone 2.5 mg daily on , , Safurosemi de 40 mg bidwill monitor [id number] BRYANNA URBANO NP [address] [place] [address] 10/15/2022 14:06:21 10/20/2022 14:25:22 Atrial fibrillation 14668286 I48.0 apixaban 2.5 mg bidwill monitor Recurrent pancreatitis 675770173 K86.1 fu GIlow fat dietwill monitor Gastroesop hageal reflux disease without esophagitis 942773936 K21.9 omeprazole 40 mg bidwill monitor Type 2 russel betes mellitus 16889686 E11.9 insulin aspart per sliding scalewill monitor Chronic pain 17084142 G8 9.29 diclofenac gel 1% to shoulders bid, to both hands and spine prnfentany l patch 50 mcg q72 hsalonpas patch to right shoulder dailyAPAP 1000 mg tidtramado l 25 mg bidtizanid ine 2 mg bidprednis one 10 mg dailyPT/OT /PM&R prnwill monitor Peripheral edema 3312579 00 R60.0 metolazone 2.5 mg , Th, Sufurosemi de 40 mg bidwill monitor Hypothyroidism 35059272 E03.8 levothyrox ine 225 mcg dailywill monitor Mixed anxi ety and depressive disorder 162525069 F41.8 bupropion SR 150 mg dailymirta zapine 7.5 mg at hstizanidi ne 2 mg bidwill monitor Essential hypertension 40769972 I10 metolazone 2.5 mg daily on , , Safurosemi de 40 mg bidwill monitor [id number] MIKIE DUONG [address] [place] [address] 11/28/2022 13:21:24 12/03/2022 17:20:32 Atrial fibrillation 08634038 I48.0 apixaban 2.5 mg bidwill monitor Recurrent pancreatitis 504580868 K86.1 f/u GIlow fat dietwill monitor Gastroesop hageal reflux disease without esophagitis 674657516 K21.9 omeprazole 40 mg bidwill monitor Type 2 russel betes mellitus 65196720 E11.9 insulin aspart per sliding scalewill monitor Chronic pain 75925236 G8 9.29 diclofenac gel 1% to shoulders bid, to both hands and spine prnfentany l patch 50 mcg q72 hsalonpas patch to right shoulder dailyAPAP 1000 mg tidtramado l 25 mg bidtizanid ine 2 mg bidprednis one 10 mg dailyPT/OT /PM&R prnwill monitor Peripheral edema 1571199 00 R60.0 metolazone 2.5 mg , , Sufurosemi de 40 mg bidwill monitor Hypothyroidism 10783019 E03.8 levothyrox ine 225 mcg dailywill monitor Mixed anxi ety and depressive disorder 108434663 F41.8 bupropion SR 150 mg dailymirta zapine 7.5 mg at hstizanidi ne 2 mg bidwill monitor Essential hypertension 74635149 I10 metolazone 2.5 mg daily on , , Safurosemi de 40 mg bidwill monitor [id number] BRYANNA URBANO NP [address] [address] 01/14/2023 14:00:23 01/16/2023 15:25:27 Mixed anxiety and depressive disorder 105005678 F41.8 bupropion SR 150 mg dailymirta zapine 7.5 mg at hstizanidi ne 2 mg bidwill monitor Severe pain 48931892 R52 fentanyl patch 50 mcg q 3 days,predn isone 10 mg qd,APAP 1000 mg tidtramado l 25 mg bid prnPT OT eval and treat prnMonitor Fall W19.XXXA PT OT eval and treatfall precaution sfrequent safety checks [id number] Samina Wilburn MD [address] [place] [address] 02/11/2023 10:06:26 02/13/2023 16:03:58 Mixed anxiety and depressive disorder 082948160 F41.8 bupropion SR 150 mg dailymirta zapine 7.5 mg at hswill monitor Atrial fibrillation 4943 6004 I48.0 apixaban 2.5 mg bidwill monitor Type 2 russel betes mellitus 03879045 E11.9 insulin aspart per sliding scalewill monitor Chronic pain 13801665 G8 9.29 diclofenac gel 1% to shoulders bid, to both hands and spine prnfentany l patch 50 mcg q72 hsalonpas patch to right shoulder dailyAPAP 1000 mg tidtramado l 25 mg bidtizanid ine 2 mg bidprednis one 10 mg dailyPT/OT /PM&R prnwill monitor Gastroesop hageal reflux disease without esophagitis 339191707 K21.9 omeprazole 40 mg bidwill monitor Hypothyroidism 78287448 E03.8 levothyrox ine 225 mcg dailywill monitor Edema 141736905 R60.0 furosemide 40 mg dailymetol azone 2.5 mg daily on T, Th, Sawill monitor [id number] Ana Damon MD [address] [place] [address] 03/20/2023 20:34:03 03/23/2023 14:49:16 Ecchymosis present 045577150 S80.02XA Probably bumped it and doesn't remember, no pain, so no tx needed.Mon itor for resolution and monitor for new ecchymoses . Nausea 533811064 R11.0 Mild, periodic and chronic.Wi ll start Zofran 4 mg q 6 hrs prnMonitor sxs. Chronic neck pain 965408 1162 107 M54.2 Already on multiple pain meds.Will start lidocaine patch to neck prn, pt. says it only hurts sometimes, so doesn't want it scheduled. Continue fentanyl patch 50 mcg q 72 hrs, APAP 1000 mg TID,tramad ol 25 mg BID,tizani dine 2 mg BID andprednis one 10 mg qd.Monitor sxs. [id number] BRYANNA URBANO NP [address] [place] [address] 04/03/2023 16:33:21 04/10/2023 09:59:49 Mixed anxiety and depressive disorder 383278815 F41.8 bupropion SR 150 mg dailymirta zapine 7.5 mg at hswill monitor Atrial fibrillation 4943 6004 I48.0 apixaban 2.5 mg bidwill monitor Type 2 russel betes mellitus 48273483 E11.9 insulin aspart per sliding scalewill monitor Chronic pain 18061343 G8 9.29 fentanyl patch 50 mcg q72 hsalonpas patch to right shoulder dailyAPAP 1000 mg tidtramado l 25 mg bidtizanid ine 2 mg bidprednis one 10 mg dailyPT/OT /PM&R prnwill monitor Gastroesop hageal reflux disease without esophagitis 287833040 K21.9 omeprazole 40 mg bidwill monitor Hypothyroidism 63211896 E03.8 levothyrox ine 225 mcg dailywill monitor Edema 347594402 R60.0 furosemide 40 mg dailymetol azone 2.5 mg daily on , , Sawill monitor [id number] MD KAREEM Whitaker [address] [facility] [place] [address] 05/29/2023 18:52:13 06/12/2023 13:46:31 Mixed anxiety and depressive disorder 277541327 F41.8 Mood good tonight.Co ntinue bupropion SR 150 mg qd and mirtazapin e 7.5 mg qhsMonitor mood.Psych follows Atrial fibrillation 4943 6004 I48.0 Rate in good control on no rate controllin g meds.Leonora nue eliquis 2.5 mg BID for AC.Monitor HR and bleeding risk. Type 2 russel betes mellitus 47784866 E11.9 Last HgA1C 7.6 in 03/2022.Sug ars in adequate control on diet control with occ. SSI.Monito r fingerstic ks TID, due for recheck of HgA1C, forgot to order. Chronic pain 69122080 G8 9.29 Will add diclofenac gel for hands BID.Contin ue fentanyl patch 50 mcg q 72 hrs, salonpas patch to right shoulder qd, APAP 1000 mg TID, tramadol 25 mg BID, tizanidine 2 mg BID, and prednisone 10 mg qd.Continu e rehab as able.Monit or sxs. Gastroesop hageal reflux disease without esophagitis 763661212 K21.9 No current sxs.Contin ue omeprazole 40 mg BID.Monito r sxs Hypothyroidism 26994953 E03.8 TSH WNL.Contin ue levothyrox ine 225 mcg qdMonitor TSH yearly. Edema 564703478 R60.0 At baseline.C ontinue furosemide 40 mg qd and metolazone 2.5 mg qd on , , SaMonitor sxs. [id number] MIKIE DUONG [address] [facility] [place] [address] 06/29/2023 12:07:31 07/07/2023 18:16:09 Fall 3322865 W19.XXXA PT OT eval and treatfall precaution sfrequent safety checks Contusion of face 281473 004 S00.83XA monitor neurosmoni tor for any signs of infectionm onitor for resolution of the bruising [id number] BRYANNA URBANO NP [address] [address] 07/01/2023 12:23:08 07/07/2023 19:15:00 Contusion of face 757807968 S00.83XA monitor neurosmoni tor for any signs of infectionm onitor for resolution of the bruising Edema 526975071 R60.0 furosemide 40 mg dailymetol azone 2.5 mg daily on T, Th, Sawill monitor [id number] BRYANNA URBANO NP [address] [address] 07/24/2023 12:53:42 08/04/2023 13:25:11 Contusion of face 478576508 S00.83XA resolvedmo nitor neurosmoni tor for any signs of infectionm onitor for resolution of the bruising Edema 939119779 R60.0 furosemide 40 mg dailymetol azone 2.5 mg daily on T, Th, Sawill monitor Fall W19.XXXA PT OT eval and treatfall precaution sfrequent safety checks Mixed anxi ety and depressive disorder 183531675 F41.8 bupropion SR 150 mg dailymirta zapine 7.5 mg at hswill monitor Atrial fibrillation 4943 6004 I48.0 apixaban 2.5 mg bidwill monitor Type 2 russel betes mellitus 41314428 E11.9 insulin aspart per sliding scalewill monitor Chronic pain 75029216 G8 9.29 fentanyl patch 50 mcg q72 hsalonpas patch to right shoulder dailyAPAP 1000 mg tidtramado l 25 mg bidtizanid ine 2 mg bidprednis one 10 mg dailyPT/OT /PM&R prnwill monitor Gastroesop hageal reflux disease without esophagitis 034951759 K21.9 omeprazole 40 mg bidwill monitor Hypothyroidism 97690797 E03.8 levothyrox ine 225 mcg dailywill monitor [id number] NELDA MANSFIELD [address] [address] 09/03/2023 09:01:19 09/08/2023 15:59:59 Dry skin dermatitis 298168788 L85.3 see hpireports intermitte nt itchiness at timesfluid s encouraged Apply moisturize r to skin BIDhydorco rtisone cream TID prn Transient lingual papillitis 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.0 not appreciate d on examwarm salt water rinses QID prngood oral hygiene encourageb arcos teeth after mealschlor hexidine mouth wash qd and HS Toothache 02332574 K08.8 9 [id number] Samina Wilburn MD [address] [address] 09/23/2023 08:31:39 09/29/2023 10:26:59 Mixed anxiety and depressive disorder 972909349 F41.8 bupropion SR 150 mg dailymirta zapine 7.5 mg at hswill monitor Chronic pain 78111807 G8 9.29 diclofenac gel 1% to shoulders daily in eveningfen tanyl patch 50 mcg q72 hLidocaine patch to right shoulder and neck dailyAPAP 1000 mg tidtramado l 25 mg bidtizanid ine 2 mg bidprednis one 10 mg dailyPT/OT /PM&R prnwill monitor Atrial fibrillation 4943 6004 I48.0 apixaban 2.5 mg bidwill monitor Type 2 russel betes mellitus 06884348 E11.9 insulin aspart per sliding scalewill monitor Hypothyroidism 06744603 E03.8 levothyrox ine 225 mcg dailywill monitor Gastroesop hageal reflux disease without esophagitis 086786363 K21.9 omeprazole 40 mg bidwill monitor Edema 562389844 R60.0 furosemide 40 mg dailymetol azone 2.5 mg daily on T, Th, Sawill monitor Chronic dermatitis 61476 007 L20.89 d/c compressio n stockingst riamcinolo ne cream bidelevate d legswill monitor [id number] NELDA MANSFIELD [address] [address] 09/24/2023 08:15:25 10/01/2023 11:35:02 Fall 0801217 W19.XXXA see hpiPT/OT eval and tx per facility protocolmi nimize fall risknursin g to educate pt on making sure wheelchair is in lock position and front wheels are facing forward before getting up out of chair. Contusion 151264387 T14. 8XXA Patient hit her right almanza against bed frame when she fell forwardnot ed with mild tenderness on eliquismon itor right almanza bruise for healing [id number] NELDA MANSFIELD [address] [address] 10/13/2023 10:07:38 10/15/2023 15:15:36 Neuropathy 848896442 G62.9 bilateral lower extremity calf with tingling pain and tenderness she is not experience any pain relief with current pain medication spatient agrees to try gabapentin times one dose 100mg she will update nursing if she experience relief. Fatigue 45654192 R53.83 appears tirediron studies, tsh, t4, bmp and cbc, vit D and Vit B levels orderedwil l r/o UTI as well. Type 2 russel betes mellitus 37870995 E11.9 currently on lispro SSC will adjust coveragere cently added lantus 10 units10/12 increased lantus to 15 units Hypothyroidism 24866588 E03.8 levothyrox ine 225 mcg dailyord TSH, T4 for 10/13 [id number] NELDA MANSFIELD [address] [address] 10/19/2023 13:21:25 10/22/2023 12:31:39 Vitamin D deficiency 35827338 E55.9 VIt D level 22start cholecacif telly 1000 unit dailyreche ck Vitamin D level in 3-4 months Neuropathy 254237124 G62 .9 today she tells me that she has a postive effect with gabapentin and would like to continue, she has not had any pain.will scheduled gabapentin 100 mg BID Q12 Type 2 russel betes mellitus 64820938 E11.9 currently on lispro SSC will adjust coveragere cently added lantus 10 units/19 increased lantus to 15 units325: FS have improved Hypothyroidism 78422280 E03.8 levothyrox ine 225 mcg dailyord TSH, T4 for 10/13 Pending Dry skin dermatitis 2600 74572 L85.3 posterior calf noted with red patchy areas that are dry and flakyrefus ed rx cream recommende rosa prefer and has been using -goldbond creamuses her own with good effect per patient.wi monitor. [id number] NELDA MANSFIELD [address] [address] 10/30/2023 21:18:42 11/02/2023 15:19:50 Type 2 diabetes mellitus 07739861 E11.9 continue lispro SSCcontinu e lantus 15 unitsmonit or FS TID Hypothyroidism 57290453 E03.8 levothyrox ine decreased to 175 mcgTSH 0.1 T4 normal rangerepea t labs in 6 weeks Abdominal pain 17397657 R10.9 see hpicontinu e zofran prn for nauseaplan robin upcoming EGD. [id number] NELDA MANSFIELD [address] [address] 11/04/2023 10:45:41 11/16/2023 16:04:21 Type 2 diabetes mellitus 15121121 E11.9 continue lispro SSCcontinu e lantus 15 unitsmonit or FS TID Hypothyroidism 71793491 E03.8 levothyrox ine decreased to 175 mcgTSH 0.1 T4 normal rangerepea t labs in 6 weeks Abdominal pain 80314229 R10.9 see hpicontinu e zofran prn for nauseaEGD unremarkab le Urinary tr act infectious disease 34217988 N39.0 10/21: postive UAstart levofloxac in 250 mg for 5 daysstart probiotic 1 tab bid for 10 daysincrea se oral hydration. [id number] NELDA MANSFIELD [address] [address] 11/19/2023 10:42:12 11/27/2023 15:22:30 Type 2 diabetes mellitus 57310215 E11.9 continue lispro SSCcontinu e lantus 15 unitsmonit or FS TID Hypothyroidism 64458212 E03.8 levothyrox ine decreased to 175 mcgTSH 0.1 T4 normal rangerepea t labs in 6 weeks Abdominal pain 00850433 R10.9 see hpicontinu e zofran prn for nauseaEGD unremarkab le Urinary tr act infectious disease 96133169 N39.0 10/21: postive UAstart levofloxac in 250 mg for 5 daysstart probiotic 1 tab bid for 10 daysincrea se oral hydration. Mixed anxi ety and depressive disorder 777819543 F41.8 bupropion SR 150 mg dailymirta zapine 7.5 mg at hswill monitor Chronic pain 84125847 G8 9.29 diclofenac gel 1% to shoulders daily in eveningfen tanyl patch 50 mcg q72 hLidocaine patch to right shoulder and neck dailyAPAP 1000 mg tidtramado l 25 mg bidtizanid ine 4 mg bidprednis one 10 mg dailyPT/OT /PM&R prnwill monitor Atrial fibrillation 4943 6004 I48.0 continue apixaban 2.5 mg bid Gastroesop hageal reflux disease without esophagitis 804627989 K21.9 omeprazole 40 mg bidcontinu e zofran 4 mg q6 prn Edema 321556608 R60.0 continue furosemide 40 mg dailyconti nue metolazone 2.5 mg daily on , , Eczema 37867521 L30.9 triamcinol one 0.1 % cream BID Dyspnea 462307865 R06.00 continue albuterol inhaler prn for shortness of breath Osteoarthritis 765665346 M15.0 lidocaine patch right shoulder.f entanyl 50 mcg patch q72 hrAPAP 1000 mg tidtramado l 25 mg bid prnglucosa mine 500 mg tid Chronic neck pain 384377 5371 107 M54.2 continue gabapentin 100 mg BID Neuropathy 977971445 G62 .9 continue gabapentin 100 mg BID. 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 [id number] NELDA MANSFIELD [address] [place] [address] [place] [address] 11/26/2023 18:58:29 12/01/2023 10:07:02 Pain of left heel 0543606839 798552 M79.672 skin prep to bilateral heels BIDoff load heels on pillow when in bedmonitor for worsening sx.Risk factor discussed diabetes ,immobilit y, age [id number] NELDA MANSFIELD [facility] [place] [address] [place] [address] [place] [address] 12/14/2023 08:12:26 12/17/2023 13:25:50 Eczema 10631676 L30.9 bilateral lower extremitie s rash with scattered patches dry and redhx chronic edema, there is potential for weeping/oo zingtriamc inolone 0.1 % cream BIDmoistur izes legs daily Pain of right heel 44191 97114 682780 M79.671 right heel red and boggywill add skin prep BIDoffload heels when in bedwear socks with shoes Neuropathy 421157874 G62 .9 reports increasing bilateral leg painwill increase gabapentin to 200 mg BID and re assess for inprovemen t. [id number] NELDA MANSFIELD KAREEM [place] [address] [place] [address] [place] [address] 01/12/2024 12:10:02 01/13/2024 16:55:18 Easy bruising 840566137 R58 reddish mid upper chest bruising, skin intactshe is noted with scattered bruising on shoulder as well.she takes eliquis and prednisone , diuretic dailywill continue to monitor.wi ll check iron studies and VIT D on next lab day. Hypothyroidism 80081690 E03.8 continue levothyrox ine 175 mcgTSH now 1.74contin ue to monitor. [id number] Ana Damon MD [address] [place] [address] 02/01/2024 21:46:09 02/17/2024 11:18:25 Chronic pain 74133117 G89.29 Remains at baseline.C ontinue fentanyl patch 50 mcg q 72 hrs, salonpas patch to right shoulder qd, APAP 1000 mg TID, tramadol 25 mg BID, tizanidine 2 mg BID, and prednisone 10 mg qd.Continu e rehab as able.Monit or sxs. 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 SSI.Monito r fingerstic ks TID, due for recheck of HgA1C, forgot to order. Gastroesop hageal reflux disease without esophagitis 192342417 K21.9 No current sxs.Contin ue omeprazole 40 mg BID.Monito r sxs Hypothyroidism 87745593 E03.8 TSH WNL.Contin ue levothyrox ine 225 mcg qdMonitor TSH yearly. Edema 813580946 R60.0 Marked tonight.Co ntinue furosemide 40 mg qd and metolazone 2.5 mg qd on , , SaMonitor sxs. Eczema 21689124 L30.9 Much improved.C ontinue triamcinol one 0.1 % cream BID and house moisturize r qdMonitor Neuropathy 176511719 G62 .89 Gabapentin was increased to 200 mg BID on 12/14/23Som e improvemen t since then.Leonora nue other pain meds as above also.Monit or. [id number] MIKIE SCALES [place] [address] [place] [address], [place] [address] 02/18/2024 11:02:37 02/20/2024 09:33:35 Edema 774644116 R60.0 Suspecting more may be going on, [...] nFurther work up as indicated Chronic pain 45565353 G8 9.29 Remains at baseline.C ontinue fentanyl patch 50 mcg q 72 hrs, salonpas patch to right shoulder qd, APAP 1000 mg TID, tramadol 25 mg BID, tizanidine 2 mg BID, and prednisone 10 mg qd.Continu e rehab as able.Monit or sxs. Mixed anxi ety and depressive disorder 701499992 F41.8 Mood goodContin ue bupropion SR 150 mg qd and mirtazapin e 7.5 mg qhsMonitor mood.Psych follows Atrial fibrillation 4943 6004 I48.0 Rate remains in good control on no rate controllin g meds.Leonora nue eliquis 2.5 mg BID for AC.Monitor HR and bleeding risk. Type 2 russel betes mellitus 61794042 E11.9 Last HgA1C 7.6 in 03/2022.Sug ars in adequate control on diet control with occ. SSI.Monito r fingerstic ks TID, due for recheck of HgA1C, forgot to order. Gastroesop hageal reflux disease without esophagitis 587126714 K21.9 No current sxs.Contin ue omeprazole 40 mg BID.Monito r sxs Hypothyroidism 77348995 E03.8 TSH WNL.Contin ue levothyrox ine 225 mcg qdMonitor TSH yearly. Eczema 79650361 L30.9 Much improved.C ontinue triamcinol one 0.1 % cream BID and house moisturize r qdMonitor Neuropathy 126184416 G62 .89 Gabapentin was increased to 200 mg BID on 12/14/23Som e improvemen t since then.Leonora nue other pain meds as above also.Monit or. Candidiasis of mouth 797 62769 B37.0 Aranda plaque on tongue.Voi ce hoarse, ? if also esophageal Nystatin Swish and swallow 5 ml qid x 30 daysMainta in oral hygeine, brush tongue Dental caries 17935024 K 02.9 Planning for teeth # 29 and 31 extraction s.Will hold clearance for now until fluid balance figured out.Will hold basaglar insulin the night before procedureW ill hold eliquis the day before and the day of procedureD oes not appear abx. proph. is warrantedC ardiac risk currently low for dental extraction s. Hypokalemia 88656101 E87 .6 K 3.1 on labs 02/16/24Pla n as above [id number] NELDA MANSFIELD [address] [place] [address] rd [place] [address] 02/23/2024 11:06:51 02/24/2024 15:45:14 Edema 812154912 R60.[address] xray did not show [...] restrictio nFurther work up as indicated Hypokalemia 59527270 E87 .6 02/21:Impro thomas 3.4continu e kcl 30 meq daily. Chronic pain 61473763 G8 9.29 Remains at baseline.C ontinue fentanyl patch 50 mcg q 72 hrs, salonpas patch to right shoulder qd, APAP 1000 mg TID, tramadol 25 mg BID, tizanidine 2 mg BID, and prednisone 10 mg qd.Continu e rehab as able.Monit or sxs. Mixed anxi ety and depressive disorder 326192370 F41.8 Mood goodContin ue bupropion SR 150 mg qd and mirtazapin e 7.5 mg qhsMonitor mood.Psych follows Atrial fibrillation 4943 6004 I48.0 Rate remains in good control on no rate controllin g meds.Leonora nue eliquis 2.5 mg BID for AC.Monitor HR and bleeding risk. Type 2 russel betes mellitus 76322229 E11.9 Last HgA1C 7.6 in 03/2022.Sug ars in adequate control on diet control with occ. SSI.Monito r fingerstic ks TID, due for recheck of HgA1C, forgot to order. Gastroesop hageal reflux disease without esophagitis 022376294 K21.9 No current sxs.Contin ue omeprazole 40 mg BID.Monito r sxs Hypothyroidism 03630260 E03.8 TSH WNL.Contin ue levothyrox ine 225 mcg qdMonitor TSH yearly. Eczema 55952960 L30.9 Much improved.C ontinue triamcinol one 0.1 % cream BID and house moisturize r qdMonitor Neuropathy 725596753 G62 .89 Gabapentin was increased to 200 mg BID on 12/14/23Som e improvemen t since then.Leonora nue other pain meds as above also.Monit or. Pneumonia 365875592 J18. 9 02/17: chest xray showed bilateral [...] rage fluid hydration. Vitamin D deficiency 347 15340 E55.9 12/06:Vit D level 20.4 - this is lower than previous levelwas taking cholecalci ferol 1000 unit daily -will increases to 50,000 unit weekly on thursday.patricia parkinson recheck in 2 months. [id number] BRYAN BERNARDO, [facility] [address] [place] [address] [place] [address] 02/25/2024 10:46:10 02/29/2024 16:18:54 Edema 365886946 R60.[address] xray did not show [...] restrictio nFurther work up as indicated Hypokalemia 33256345 E87 .6 02/21:Impro thomas 3.4continu e kcl 30 meq daily. Chronic pain 76252765 G8 9.29 Remains at baseline.C ontinue fentanyl patch 50 mcg q 72 hrs, salonpas patch to right shoulder qd, APAP 1000 mg TID, tramadol 25 mg BID, tizanidine 2 mg BID, and prednisone 10 mg qd.Continu e rehab as able.Monit or sxs. Mixed anxi ety and depressive disorder 158219918 F41.8 Mood goodContin ue bupropion SR 150 mg qd and mirtazapin e 7.5 mg qhsMonitor mood.Psych follows Atrial fibrillation 4943 6004 I48.0 Rate remains in good control on no rate controllin g meds.Leonora nue eliquis 2.5 mg BID for AC.Monitor HR and bleeding risk. Type 2 russel betes mellitus 19513615 E11.9 Last HgA1C 7.6 in 03/2022.Sug ars in adequate control on diet control with occ. SSI.Monito r fingerstic ks TID, due for recheck of HgA1C, forgot to order. Gastroesop hageal reflux disease without esophagitis 839721446 K21.9 No current sxs.Contin ue omeprazole 40 mg BID.Monito r sxs Hypothyroidism 73845470 E03.8 TSH WNL.Contin ue levothyrox ine 225 mcg qdMonitor TSH yearly. Eczema 89160746 L30.9 Much improved.C ontinue triamcinol one 0.1 % cream BID and house moisturize r qdMonitor Neuropathy 590425346 G62 .89 Gabapentin 200 mg BIDreports bilateral lower extremity pain- noted with swelling >in LLE than RLE-awaiti ng ultrasound to r/o DVT. due to be done today at 3 pmPt willing to try diclofenac gel for lower extremity to see it helps with pain. Pneumonia 341471719 J18. 9 02/17: chest xray showed bilateral [...] rage fluid hydration. Vitamin D deficiency 347 97969 E55.9 12/06:Vit D level 20.4 - this is lower than previous levelwas taking cholecalci ferol 1000 unit daily -will increases to 50,000 unit weekly on thursday.patricia parkinson recheck in 2 months. [id number] NELDA MANSFIELD [address] [place] [address] 02/29/2024 18:11:58 03/01/2024 13:10:29 Pneumonia 103971130 J18.9 breathing is easy and unlabored: chest xray showed bilateral airspace opacities. No pleural effusion.c ontinue augmentin 500 mg TID until 03/04 and azithromyc in 500 mg for 1 day and then continue 250 mg for 4 days .check VS q shiftencou rage fluid hydration. [id number] NELDA MANSFIELD [address] [place] [address] 03/16/2024 10:26:05 03/18/2024 10:30:33 Pneumonia 060662268 J18.9 completed abxbreathi ng is easy and unlabored Mixed anxi ety and depressive disorder 970221653 F41.8 Mood is stable.Con tinue:bupr opion SR 150 mg qdmirtazap ine 7.5 mg qhs-03/14 seen by psych with recommenda tion for GDR for mirtazapin e now ordered at 5 mg hs. patient in agreement. Monitor mood. [id number] NELDA MANSFIELD [address] [place] [address] 03/23/2024 11:08:46 03/31/2024 14:26:29 Edema 337323628 R60.0 Marked tonight.Co ntinue furosemide 40 mg qd and metolazone 2.5 mg qd on T, Th, SaMonitor sxs. Chronic pain 02608996 G8 9.29 Remains at baseline.C ontinue fentanyl patch 50 mcg q 72 hrs, salonpas patch to right shoulder qd, APAP 1000 mg TID, tramadol 25 mg BID, tizanidine 2 mg BID, and prednisone 10 mg qd.Continu e rehab as able.Monit or sxs. Mixed anxi ety and depressive disorder 264653373 F41.8 Continue bupropion SR 150 mg qd and mirtazapin e 7.5 mg qhsMonitor mood.Psych follows Atrial fibrillation 4943 6004 I48.0 Continue eliquis 2.5 mg BID for AC.Monitor HR and bleeding risk. Type 2 russel betes mellitus 94229438 E11.9 continue lantus 15 units at HSmonitor FS Gastroesop hageal reflux disease without esophagitis 892083577 K21.9 No current sxs.Contin ue omeprazole 40 mg BID.Monito r sxs Hypothyroidism 48065020 E03.8 TSH WNL.Contin ue levothyrox ine 175 mcgMonitor TSH yearly. Eczema 85673043 L30.9 Much improved.C ontinue triamcinol one 0.1 % cream BID and house moisturize r qdMonitor Neuropathy 983088507 G62 .89 Gabapentin 200 mg BIDMonitor . Hypokalemia 83301997 E87 .6 continue kcl 30 meq daily. Vitamin D deficiency 347 05327 E55.9 12/06 Vit D level 20.4 - this is lower than previous levelwas taking cholecalci ferol 1000 unit daily-incr eased to 50,000 unit weekly on thursday.patricia parkinson recheck vit d level on next lab day. [id number] NELDA MANSFIELD [address] [place] [address] 03/29/2024 10:37:33 03/31/2024 14:35:20 Mixed anxiety and depressive disorder 562641412 F41.8 Mood is stable todayConti nue:buprop ion SR 150 mg qdwith trial gdr off mirtazapin e 7.5 mg qhs-decrea sed to 3.75 mgMonitor mood, patient will report unwanted side effects of gdr such as increased anxiety, restlessne ss, insomnia [id number] NELDA MANSFIELD [address] [place] [address] 04/26/2024 14:44:48 05/02/2024 13:49:37 Cellulitis of left lower limb 3027875163 1398437 L03.116 Met sepsis criteria due to 101.5 F, WBC 19.2recent ly started on Keflex for left lower extremity cellulitis on 04/15.CT chest without any focal findings of pneumonia. s/p iv van and zosyndisch arge on take Augmentin till 04/24/24 Extravasat ion of intravenous contrast medium 304707714 T80.818A In acute care found to have left arm swelling tx conservati vely with warm compress and elevation. Atrial fibrillation 4943 6004 I48.0 Continue eliquis 2.5 mg BID for AC.Monitor HR and bleeding risk. Hypothyroidism 91381615 E03.8 TSH WNL.Contin ue levothyrox ine 175 mcgMonitor TSH yearly. Gastroesop hageal reflux disease without esophagitis 370891377 K21.9 No current sxs.Contin ue omeprazole 40 mg BID.Monito r sxs Osteoarthritis 193433565 M15.0 lidocaine patch right shoulder.f entanyl 50 mcg patch q72 hrAPAP 1000 mg tidtramado l 25 mg bid prnglucosa mine 500 mg tid Type 2 russel betes mellitus 98541924 E11.9 [facility] [id number] NELDA MANS[place] [address] [place] [address] 05/02/2024 09:59:17 05/03/2024 11:50:42 Cellulitis of left lower limb 0245158857 2237394 L03.116 05/02: see hpiLLE edema and pain, [...] 04/24/24 Extravasat ion of intravenous contrast medium 758913542 T80.818A In acute care found to have left arm swelling tx conservati vely with warm compress and elevation. Atrial fibrillation 4943 6004 I48.0 Continue eliquis 2.5 mg BID for AC.Monitor HR and bleeding risk.repor table sx reviewed. Hypothyroidism 02775248 E03.8 TSH WNL.Contin ue levothyrox ine 175 mcgMonitor TSH yearly. Gastroesop hageal reflux disease without esophagitis 817876088 K21.9 No current sxs.Contin ue omeprazole 40 mg BID.Monito r sxs Osteoarthritis 540215883 M15.0 fentanyl 50 mcg patch q72 hrAPAP 1000 mg tidtramado l 25 mg bid prnglucosa mine 500 mg tid Type 2 russel betes mellitus 40925162 E11.9 continue lantus 15 units at [facility] FS [id number] BRYAN BERNARDO [address] [address] 05/05/2024 10:15:43 05/10/2024 15:49:53 Cellulitis of left lower limb 9186774244 4164131 L03.116 05/05: Ultrasound results reviewed, negative for [...] reviewed. Gastroesop hageal reflux disease without esophagitis 030705259 K21.9 stableNo current sxs.Contin ue omeprazole 40 mg BID.Monito r sxs Osteoarthritis 252176062 M15.0 stablefent anyl 50 mcg patch q72 hrAPAP 1000 mg tidtramado l 25 mg bid prn Type 2 russel betes mellitus 57969849 E11.9 continue lantus 15 units at [facility] FS [id number] NELDA MANSFIELD [address] [address] 05/09/2024 11:51:06 05/10/2024 16:10:25 Cellulitis of left lower limb 0543847610 3103246 L03.116 resolved Atrial fibrillation 4943 6004 I48.0 stable without sx.Continu e eliquis 2.5 mg BID for AC.Monitor HR and bleeding risk.repor table sx reviewed. Gastroesop hageal reflux disease without esophagitis 804069394 K21.9 stableNo current sxs.Contin ue omeprazole 40 mg BID.Monito r sxs Osteoarthritis 597523625 M15.0 stablefent anyl 50 mcg patch q72 hrAPAP 1000 mg tidtramado l 25 mg bid Type 2 russel betes mellitus 75215868 E11.9 continue lantus 15 units at HSmonitor FS- mainly under 200sshe is without hypo/hyper glucose sx. Edema 725875065 R60.0 BLE decreased edema note, she is wearing wilma wrapsconti nue torsemide 20 mg daily and metolazone as ord. [id number] NELDA MANSFIELD [address] [place] [address] 05/12/2024 11:47:54 05/13/2024 11:46:56 Atrial fibrillation 05015028 I48.0 stable without sx.Continu e eliquis 2.5 mg BID for AC.Monitor HR and bleeding risk.repor table sx reviewed. Gastroesop hageal reflux disease without esophagitis 101009343 K21.9 stableNo current sxs.Contin ue omeprazole 40 mg BID.Monito r sxs Osteoarthritis 283560542 M15.0 stablefent anyl 50 mcg patch q72 hrAPAP 1000 mg tidtramado l 25 mg bid Type 2 russel betes mellitus 76922277 E11.9 [facility]us [facility]- mainly under 200sshe is without hypo/hyper glucose sx. Edema 960875658 R60.0 BLE decreased edema note, she is wearing wilma wrapsconti nue torsemide 20 mg daily and metolazone as ord. Spinal roni nosis of lumbar region 07947744 M48.062 fentanyl patch 50 mcgprednis one 10 mg daily - taper to start 05/16/24de creasing by 1 mg per week. [id number] NELDA MANSFIELD [address] [place] [address] 05/16/2024 08:25:38 05/18/2024 09:23:51 Atrial fibrillation 07166710 I48.0 stable without sx.Continu e eliquis 2.5 mg BID for AC.Monitor HR and bleeding risk.repor table sx reviewed. Gastroesop hageal reflux disease without esophagitis 540388952 K21.9 stableNo current sxs.Contin ue omeprazole 40 mg BID.Monito r sxs Osteoarthritis 507069237 M15.0 stablefent anyl 50 mcg patch q72 hrAPAP 1000 mg tidtramado l 25 mg bid Type 2 russel betes mellitus 79349416 E11.9 continue lantus 15 units at [facility] FS- mainly under 200sshe is without hypo/hyper glucose sx. Edema 750555542 R60.0 BLE decreased edema note, she is wearing wilma wrapsconti nue torsemide 20 mg daily and metolazone as ord. Spinal roni nosis of lumbar region 69113866 M48.062 fentanyl patch 50 mcgprednis one 10 mg daily - taper to start 05/16/24de creasing by 1 mg per week. Itching of skin 83172953 0 L29.9 left shoulder is without redness or rashencour aged to apply lotion dailywill start claritin 10 mg daily. [id number] NELDA MANSFIELD [address] [place] [address] 05/19/2024 11:11:15 05/23/2024 15:12:03 Atrial fibrillation 41589453 I48.0 stable without sx.Continu e eliquis 2.5 mg BID for AC.Monitor HR and bleeding risk.repor table sx reviewed. Gastroesop hageal reflux disease without esophagitis 075860235 K21.9 stableNo current sxs.Contin ue omeprazole 40 mg BID.Monito r sxs Osteoarthritis 643989510 M15.0 stablefent anyl 50 mcg patch q72 hrAPAP 1000 mg tidtramado l 25 mg bid Type 2 russel betes mellitus 68003439 E11.9 continue lantus 15 units at [facility] FS- mainly under 200sshe is without hypo/hyper glucose sx. Edema 183816642 R60.0 BLE decreased edema note, she is wearing wilma wrapsconti nue torsemide 20 mg daily and metolazone as ord. Spinal roni nosis of lumbar region 11149597 M48.062 fentanyl patch 50 mcgprednis one 10 mg daily - taper to start 05/16/24de creasing by 1 mg per week. Itching of skin 39450106 0 L29.9 left shoulder is without redness or rashencour aged to apply lotion dailywill start claritin 10 mg daily. [id number] NELDA MANSFIEDL [address] [address] 05/23/2024 07:53:51 05/24/2024 13:52:57 Atrial fibrillation 44910872 I48.0 stable without sx.Continu e eliquis 2.5 mg BID for AC.Monitor HR and bleeding risk.repor table sx reviewed. Gastroesop hageal reflux disease without esophagitis 017852658 K21.9 stableNo current sxs.Contin ue omeprazole 40 mg BID.Monito r sxs Osteoarthritis 611494792 M15.0 stablefent anyl 50 mcg patch q72 hrAPAP 1000 mg tidtramado l 25 mg bid Type 2 russel betes mellitus 73430068 E11.9 continue lantus 15 units at [facility]- mainly under 200sshe is without hypo/hyper glucose sx. Edema 335993228 R60.0 BLE decreased edema note, she is wearing wilma wrapsconti nue torsemide 20 mg daily and metolazone as ord. Spinal roni nosis of lumbar region 67988556 M48.062 fentanyl patch 50 mcgprednis one 10 mg daily - taper to start 05/16/24de creasing by 1 mg per week. Itching of skin 27026575 0 L29.9 left shoulder is without redness or rashencour aged to apply lotion dailywill start claritin 10 mg daily. [id number] NELDA MANSFIELD [address] [address] 05/27/2024 07:54:05 05/30/2024 13:39:41 Atrial fibrillation 05646610 I48.0 stable without sx.Continu e eliquis 2.5 mg BID for AC.Monitor HR and bleeding risk.repor table sx reviewed. Gastroesop hageal reflux disease without esophagitis 039957784 K21.9 stableNo current sxs.Contin ue omeprazole 40 mg BID.Monito r sxs Osteoarthritis 170173167 M15.0 stablefent anyl 50 mcg patch q72 hrAPAP 1000 mg tidtramado l 25 mg bid Type 2 russel betes mellitus 81167725 E11.9 continue lantus 15 units at [facility] FS- mainly under 200sshe is without hypo/hyper glucose sxwill need updated A1c as we taper off prednisone Edema 290204139 R60.0 improved with compressio n stockings. continue torsemide 20 mg daily and metolazone as ord. Spinal roni nosis of lumbar region 69847859 M48.062 fentanyl patch 50 mcgprednis one 10 mg daily - tapering off 1 mg per weekdecrea sing by 1 mg per week. Itching of skin 82696453 0 L29.9 stableleft shoulder is without redness or rashencour aged to apply lotion dailywill start claritin 10 mg daily. [id number] NELDA MANSFIELD [address] [place] [address] 06/02/2024 09:27:55 06/06/2024 12:53:38 Atrial fibrillation 32275378 I48.0 stable without sx.Continu e eliquis 2.5 mg BID for AC.Monitor HR and bleeding risk.repor table sx reviewed. Gastroesop hageal reflux disease without esophagitis 066918343 K21.9 reports hypogastri c non radiating pain+ nausea no vomitinNo current sxs.Contin ue omeprazole 40 mg BID.Monito r sxs Osteoarthritis 849047263 M15.0 stablefent anyl 50 mcg patch q72 hrAPAP 1000 mg tidtramado l 25 mg bid Type 2 russel betes mellitus 60902443 E11.9 stablecont inue lantus 15 units at [facility] FS- mainly under 200sshe is without hypo/hyper glucose sx Edema 785425122 R60.0 improved with compressio n stockings. continue torsemide 20 mg daily and metolazone as ord. Blister of lower leg without infection 97123702 S80.822A initially fluid filled with clear liquidnow burst-anais ent recently tx for cellulitis , I prefer wound to be tx with and antispetic nursing ord to cleanse with NS 0r warm soap and water dialy, paint with betadine with non adhesive dressing and kerlix. [id number] BRYAN BERNARDO, [address] [address] 06/06/2024 08:41:07 06/07/2024 11:48:57 Atrial fibrillation [id number] I48.0 stable without sx.Continu e eliquis 2.5 mg BID for AC.Monitor HR and bleeding risk.repor table sx reviewed. Gastroesop hageal reflux disease without esophagitis [id number] K21.9 No current sxs.Contin ue omeprazole 40 mg BID.Monito r sxs Osteoarthritis [id number] M15.0 stablefent anyl 50 mcg patch q72 hrAPAP 1000 mg tidtramado l 25 mg bid Type 2 russel betes mellitus 67499107 E11.9 stablecont inue lantus 15 units at [facility]- mainly under 200sshe is without hypo/hyper glucose sx Edema 962225317 R60.0 continue torsemide 20 mg daily and metolazone as ord. Blister of lower leg without infection 41115888 S80.822A initially fluid filled with clear liquidnow burst-anais ent recently tx for cellulitis , I prefer wound to be tx with and antispetic as well.nursi ng ord to cleanse with NS 0r warm soap and water dialy, paint with betadine cover with xeroform dressing and kerlix. [id number] BRYAN BERNARDO [address] [address] 06/16/2024 11:11:20 06/21/2024 11:07:01 Edema 729351969 R60.0 continue torsemide 20 mg daily and metolazone as ord. Blister of lower leg without infection 74989341 S80.822A initially fluid filled with clear liquidnow [...] recs to continue current tx ords. Dysuria 98395839 R30.0 send urine for UA with C&Swater encouraged to flush out toxins Fatigue 03931861 R53.83 recheck bmp, cbc, TSH,iron , ammonia and Vit B & D levels on 06/17 [id number] NELDA MANSFIELD [address] [place] [address] 06/27/2024 12:04:26 06/30/2024 11:21:08 Cellulitis of right lower limb [id number] 5097274 L03.115 2/2 diabetes and decreased skin integrity from venous stasis and chronic prednisone usetx with IV ancef in acute carecomple cassie po abx keflex on 06/24follo wed by Wound MD Venous ins ufficiency of lower limb 119526529 I87.2 chronic BLE edema/RLE acute DVT /right almanza erupted skin blisterdis cussed with nursing, continue eliquis and wound tx with xeroform Acute deep venous thrombosis of femoral vein [id number] 99798 I82.419 non occlusive/ RLEon eliquis 5 mg BID Chronic heart failure 48 736331 I50.9 acute on chronic/el evated BNP tx with IV lasixCXR showed interstiti al markings but difficult to interpret due to underlying fibrosisco ntinue torsemide and metolazone monitor labs Edema 525377713 R60.0 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 [id number] NELDA MANSFIELD [address] [place] [address] 06/30/2024 08:36:09 07/01/2024 12:09:02 Cellulitis of right lower limb [id number] 8698628 L03.115 completed abxdenies any pain, per nsg no erythema or warmth Venous ins ufficiency of lower limb 228556595 I87.2 chronic BLE edema/RLE acute DVT /right almanza erupted skin blisterdis cussed with nursing, continue eliquis and wound tx Acute deep venous thrombosis of femoral vein 4043048479 29021 I82.419 non occlusive/ RLEon eliquis 5 mg BID Chronic heart failure 48 776437 I50.9 acute on chronic/el evated BNP tx with IV lasixCXR showed interstiti al markings but difficult to interpret due to underlying fibrosisco ntinue torsemide and metolazone baseline crackles with hx of pulm. 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 Wound 404002643 T14.90 XA see pi2/2 to erupted blisterfol lowed by wound MD with recent changes to oil emulsion.shelbie kelly provided why tx was changedwil l resume previous tx order of NS and betadine per patient request and have wound re evaldiscus sed with nursing [id number] NELDA MANSFIELD [address] [place] [address] 07/04/2024 10:17:37 07/05/2024 14:29:23 Venous insufficiency of lower limb 573378004 I87.2 stablechro gavin BLE edema/RLE acute DVT /right almanza erupted skin blisterdis cussed with nursing, continue eliquis and wound tx Acute deep venous thrombosis of femoral vein 7133124112 52417 I82.419 non occlusive/ RLEon eliquis 5 mg BID Chronic heart failure 48 542624 I50.9 acute on chronic/el evated BNP tx with IV lasixCXR showed interstiti al markings but difficult to interpret due to underlying fibrosisco ntinue torsemide and metolazone baseline crackles with hx of pulm. fibrosismo nitor labs Edema 793939304 R60.0 chronic/st abl;e with no increase on exam todayconsi jeff referral to lymphedema clinic - she often c/o pain, she is at increase risk for recurrent infection. Wound 874650564 T14.90 XA see pi2/2 to erupted blisterfol lowed by wound with recent changes to oil emulsion.shlebie kelly provided why tx was changedwil l resume previous tx order of NS and betadine per patient request and have wound re evaldiscus sed with nursing [id number] NELDA MANSFIELD [place] [address] [place] [address] 07/07/2024 08:16:53 07/08/2024 13:27:39 Venous insufficiency of lower limb 551838536 I87.2 stablechro gavin BLE edema/RLE acute DVT /right almanza erupted skin blisterdis cussed with nursing, continue eliquis and wound txseen by wound MD with new order changes made in pcc. Acute deep venous thrombosis of femoral vein 4295516868 92363 I82.419 non occlusive/ RLEon eliquis 5 mg BID Chronic heart failure 48 958509 I50.9 continue torsemide and metolazone baseline crackles with hx of pulm. fibrosismo nitor labs Edema 662275658 R60.0 chronic/st ableconsid er referral to lymphedema clinic - she often c/o pain, she is at increase risk for recurrent infection. [id number] NELDA MANSFIELD [address] [address] 07/11/2024 10:40:35 07/12/2024 12:07:39 Venous insufficiency of lower limb 952771724 I87.2 stablechro gavin BLE edema/RLE acute DVT /right almanza erupted skin blisterdis cussed with nursing, continue eliquis and wound txfollowed by wound /continu e current tx orders. Acute deep venous thrombosis of femoral vein 5994829147 76898 I82.419 non occlusive/ RLEon eliquis 5 mg BID Chronic heart failure 48 006902 I50.9 baseline BLE edema, otherwise no worsening edema notedconti nue torsemide and metolazone baseline crackles with hx of pulm. fibrosismo nitor labs Edema 218827543 R60.0 chronic/st ableconsid er referral to lymphedema clinic - she often c/o pain, she is at increase risk for recurrent infection. 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 Mood is stable todayConti nue:buprop ion [...] Member ID Guarantor Name 07/07/2024 2 [place] [facility] [place] Rodneyell [id number] Dallas Lissa 07/07/2024 2 [place] [id number] Dallas Aguilaronnell [id number] Dallas Aguilaronnell 07/07/2024 1 [place] B[place] [employer] [place] Aguilaronnell [id number] Dallas Lissa Notes Date Note Type Note Provider Name and Address Organization Details Recorded Time 07/07/2024 text/html ROS as noted in the HPI Dallas is an 84 yr old femal seen for acute care visit [...] and history of PE NELDA MANSFIELD [address] [facility], [address], [place], [address], [employer] [facility] 07/07/2024 15:22:09 07/11/2024 text/html ROS as noted in the HPI Dallas is an 84 yr old femal seen for acute care visit. [...] and history of PE NELDA MANSFIELD [address] , [address], [place], [address], [employer] 07/11/2024 14:31:09 07/15/2024 text/html ROS as noted in the HPI This is an 84 yr old women seen for acute rounding visit, she is reporting dysuria for a few days and states sx are similar to past UTI complaints. she denies any frequency or urgency, she has been afebrile. NELDA MANSFIELD [address] , [address], [place], [address], [employer] [facility] 07/15/2024 12:35:05 07/18/2024 text/html ROS as noted in the HPI This is an 84 yr old women seen for acute rounding visit for follow for dysuria. Recent UA negative for infection, pt updated on results, she now reports that she is no longer experiencing sx.she encouraged to increase fluid preferably water. NELDA MANSFIELD [address] , [address], [place], [address], [employer] [facility] 07/18/2024 12:28:32 07/21/2024 text/html ROS as noted in the HPI This is an 84 yr old women seen for acute rounding visit. She has been at baseline in NAD, today she is doing ok, there are no acute concerns. 07/21/24 Tested negative for covid NELDA MANSFIELD [address], [address], [place], [address], [employer] 07/21/2024 15:46:48 OBGyn Episode No OBEpisode recorded.
[2025-05-01 07:31] LABS: Anion Gap 16 (12-20); Blood Urea Nitrogen 30 mg/dL (9-16); Calcium 9.1 mg/dL (8.4-10.2); Carbon Dioxide 30 mmol/L (22-29); Chloride 98 mmol/L (96-108); Estimated Glomerular Filt Rate 41; Potassium 3.7 mmol/L (3.3-5.1); Sodium 140 mmol/L (135-145)
[2025-05-01 07:43] LABS: Free T4 (Free Thyroxine) 1.22 ng/dL (0.71-1.85); Thyroid Stimulating Hormone 0.82 uIU/mL (0.32-4.0)
== END 2025-05-01 06:46 | disposition home or self-care (01) ==
LOC: HO.MMNH3L 06:45
PROVIDERS: Visit Provider Family Medicine
DX: I10 Essential (primary) hypertension (principal)
CPT/HCPCS: 36415; 80048; 84439; 84443; 85025

== ENCOUNTER 2025-05-10 12:00 | Outpatient (REF) | payer MEDICARE, MEDICAID, SELFPAY ==
[2025-05-10 12:05] LABS: MANUAL DIFF FLAG NO
[2025-05-10 12:16] LABS: Appearance Urine Clear; Glucose Urine UA Negative (Negative); PH 6.0 (5.0-9.0); Specific Gravity - Urine 1.015 (1.005-1.025); UMIC TRIGGER UA YES
[2025-05-10 12:47] LABS: Anion Gap 17 (12-20); Blood Urea Nitrogen 35 mg/dL (9-16); Calcium 9.2 mg/dL (8.4-10.2); Carbon Dioxide 30 mmol/L (22-29); Chloride 98 mmol/L (96-108); Estimated Glomerular Filt Rate 30; Potassium 3.8 mmol/L (3.3-5.1); Sodium 141 mmol/L (135-145)
[2025-05-10 13:03] LABS: Thyroid Stimulating Hormone 7.89 uIU/mL (0.32-4.0)
[2025-05-10 13:20] LABS: Hematocrit 38.9 % (37.0-47.0); Hemoglobin 12.3 g/dl (12.0-16.0); Imm Gran Abs Auto 0.18 X10*3/uL (0.00-0.03); Imm Gran Pct Auto 2.0 % (0.0-0.4); Lymphocytes Absolute Auto 1.4 X10*3/uL (1.2-4.9); Mean Corpuscular HGB Conc 31.6 g/dl (31.0-35.0); Mean Corpuscular Hemoglobin 32.0 pg (27.0-33.0); Mean Corpuscular Volume 101.3 fL (80.0-98.0); NRBC Abs Auto 0.000 X10*3/uL (0.0-0.012); NRBC Pct Auto 0.0 /100WBC (0.0-0.2); Platelet Count 266 X10*3/uL (160-400); Red Blood Count 3.84 X10*6/uL (4.20-5.50); White Blood Count 9.0 X10*3/uL (4.8-10.8)
== END 2025-05-10 12:01 | disposition home or self-care (01) ==
LOC: HO.MMNH3L 12:00
PROVIDERS: Visit Provider Student in an Organized Health Care Education/Training Program
DX: K86.1 Other chronic pancreatitis (principal); T45 Poisoning by, adverse effect of and underdosing of primarily systemic and hematological agents, not elsewhere classified; T84.110A Breakdown (mechanical) of internal fixation device of right humerus, initial encounter; Z13.29 Encounter for screening for other suspected endocrine disorder
CPT/HCPCS: 36415; 80048; 81001; 84443; 85025; 87086

== ENCOUNTER 2025-05-25 06:00 | Outpatient (REF) | payer MEDICARE, MEDICAID, SELFPAY ==
--- OUTSIDE RECORDS SUMMARY | 2025-05-25 06:04 | XMS_ITS | Data Portability ---
Author Organization [facility], Main Office Address [address] [facility], [address] [place] [address] Care Team Providers Care Podiatrist Name Role Phone KAREEM HAYNES 3RD FLOOR [...] Address Organization Details Recorded Time Severe pain 95892491 Active 2021 back pain BRYANNA URBANO NP [address] [facility], [address], [place], [address], [facility] 2 13:15:21 Adult failure to thrive syndrome 825131957 Active 2021 BRYANNA URBANO, MIKIE [address] [facility], [address], [place], [address], [facility] 2 13:15:35 Fall Active 2021 BRYANNA URBANO NP [address], [address], [place], [address], [facility] 2 13:15:44 Gastroes ophageal reflux disease without esophagi tis 975369231 Active 2021 BRYANNA URBANO NP [address] [facility], [address], [place], [address], [facility] 2 13:16:01 Osteoart hritis 065270976 Active 2021 BRYANNA URBANO NP [address] [facility], [address], [place], [address], [facility] 2 13:16:10 Mixed anxiety and depressi ve disorder 813203174 Active 2021 BRYANNA URBANO NP [address] [facility], [address], [place], [address], [facility] 3 10:40:32 Hypothyr oidism 25892094 Active 2021 BRYANNA URBANO NP [address] [facility], [address], [place], [address], [facility] 2 13:16:28 Osteopor osis 11134468 Active 2021 BRYANNA URBANO NP [address], [address], [place], [address], [facility] 2 13:17:10 Atrial fibrilla tion 20080067 Active 2021 BRYANNA URBANO, MIKIE [address], [address], [place], [address], [facility] 2 14:21:30 Hyperlip idemia 21232151 Active 2021 BRYANNA VELAPIN, HOSIERY PAIRER [address], [address], [place], [address], [facility] 2 14:21:52 Spinal stenosis of lumbar region 29532721 Active 2021 Ana Damon MD [address], [address], [place], [address], [facility] 2 19:13:30 Edema 176970917 Active 2021 BRYANNA YOLIE, HOSIERY PAIRER [address], [address], [place], [address], [facility] 2 13:22:11 Hypokale doretha 89014009 Active 2021 Ana Damon MD [address], [address], [place], [address], [facility] 2 23:44:02 Pancreat itis 62700057 Active 2021 BRYANNA URBANO, HOSIERY PAIRER [address] [facility], [address], [place], [address], [facility] 2 14:58:02 Generali zed osteoart hritis 036351379 Active 2021 Ana Damon MD [address] [facility], [address], [place], [address], [facility] 2 14:42:49 Contusio n 561832606 Active 2021 right buttock BRYANNA YOLIE, HOSIERY PAIRER [address] [facility], [address], [place], [address], [facility] 3 12:37:52 COVID-19 802908303 Active 2021 BRYANNA YOLIE, HOSIERY PAIRER [address], [address], [place], [address], [facility] 2 10:44:44 Dislocat ion of shoulder joint 904521079 Active 2022 Margarette Awad NP [address], [address], [place], [address], [facility] 3 11:28:04 Chronic neck pain 32951964863 07 Active 2022 Ana Damon MD [address], [address], [place], [address], [facility] 3 21:36:27 Nausea 650597588 Active 2022 Ana Damon MD [address], [address], [place], [address], [facility] 3 21:36:31 Type 2 diabetes mellitus 08381771 Active 2022 Ana Damon MD [address], [address], [place], [address], [facility] 3 20:16:36 Contusio n of face 071102378 Active 2022 BRYANNA URBANO NP [address], [address], [place], [address], [facility] 3 12:37:45 Urinary tract infectio us disease 72494934 Active 2023 NELDA MANSFIELD [address], [address], [place], [address], [facility] 4 14:59:19 Dyspnea 322199559 Active 2023 NELDA MANSIFELD [address], [address], [place], [address], [facility] 4 22:03:33 Neuropat hy 581830973 Active 2023 NELDA MANSFIELD [address], [address], [place], [address], [facility] 4 22:17:58 Constipa tion 25711057 Active 2023 NELDA MANSFIELD [address], [address], [place], [address], [facility] 4 22:22:39 Chronic pain 37894035 Active 2023 Ana Damon MD [address], [address], [place], [address], [facility] 4 10:49:48 Cellulit is 603205760 Active 2023 NELDA MANSFIELD [address] [facility], [address], [place], [address], [facility] 4 09:09:15 Manav contreras 74923252 Completed 202306/06/2024 on predniso ne 10 mg daily NELDA MANSFIELD [address] [place] [address], [address], [place], [address], [facility] 4 15:48:25 Venous insuffic iency of lower limb 818582843 Active 2023 NELDA MANSFIELD [address] [place] [address], [address], [place], [address], [facility] 4 02:16:11 Chronic heart failure 11828113 Active 2023 NELDA MANSFIELD [address] [place] [address], [address], [place], [address], [facility] 4 02:24:16 Problem Notes None recorded. Medical Equipment None Reported. Allergies Allergen ID Allergen Name Allergen Category Reaction Reaction Severity Criticality Documentation Date Start Date Code Code System Note Provider Name and Address Organization Details Recorded Time 90926 amitripty line medicatio n Not available Not available Not available 09/25/2021 704 RxNorm BRYANNA MIKIE URBANO [address] [place] [address], [address], [place], [address], [facility] 2 13:14:24 12571 morphine medicatio n Not available Not available Not available 09/25/2021 7052 RxNorm BRYANNA YOLIE, MIKIE [address] [facility], [address], [place], [address], [facility] 2 13:14:30 95472 oxycodone medicatio n Not available Not available Not available 09/25/2021 7804 RxNorm BRYANNA YOLIE, MIKIE [address] [place] [address], [address], [place], [address], [facility] 2 13:14:37 69362 Demerol medicatio n Not available Not available Not available 09/25/2021 58573 1 RxNorm BRYANNA YOLIE, HOSIERY PAIRER [address], [place], [address], [facility] 2 13:14:42 29923 Phenergan medicatio n Not available Not available Not available 09/25/2021 75682 8 RxNorm BRYANNA GRIPPIN, HOSIERY PAIRER [address], [address], [place], [address], [facility] 2 13:14:50 10977 lactose food,medi cation Not available Not available Not available 09/25/2021 6211 RxNorm BRYANNA YOLIE, HOSIERY PAIRER [address] [facility], [address], [place], [address], [facility] 2 13:14:59 Medications Name Sig Start [...] DateTime 07/07/2024 162.56 cm NELDA MANSFIELD [address] [facility], [address], [place], [address], [facility] 07/07/2024 08:58:12 Date Recorded Body height Provider Name an d Address Organization Details Last Updated DateTime 07/11/2024 162.56 cm NELDA MANSFIELD [address] [facility], [address], [place], [address], [facility] 07/11/2024 14:23:34 Date Recorded Body height Heart rate Oxygen saturation Oxygen saturation in Arterial blood by Pulse oximetry Provider Name and Address Organization Details Last Updated DateTime 07/21/2024 162.56 cm 78 /min 95 % 95 % NELDA MANSFIELD [address] [facility], [address], [place], [address] , [employer] 07/21/2024 15:42:40 Social History Question Answer Notes LastModified by Organizat ion Details LastModified Time Tobacco Smoking Status Former Smoker can't remember when she quit Ana Damon MD [address] [facility], [address], [place], [place], [address], [employer] 09/26/2021 19:09:18 Do You Have An Advance Directive? Yes Information not available 09/26/2021 What Is Your Code Status? DNR/DNI Information not available 09/25/2021 Where Do You Live? [facility]. Was Living With Son, But He Is Not Home During The Day. Information not available 05/29/2023 Legal Guardian? No Informati on not available 09/26/2021 Do You Have A Medical Power Of Chemical Processing Equipment Repairer? Yes Invoked Information not available 09/26/2021 What [...] adjuvanted, quadrivalent, PF 05/21/2022 completed Dena maza, [facility] 08/17/2023 10:49:52 Influenza, adjuvanted, quadrivalent, PF 03/04/2023 completed Dena maza [facility] 08/17/2023 10:50:06 Past Encounters Encounter ID Performer Location Encounter Start Date Encounter Closed Date Diagnosis/Indication Diagnosis SNOMED-CT Code Diagnosis ICD10 Code Diagnosis IMO Codes Diagnosis Note [id number] BRYANNA URBANO NP [address] [address] 09/25/2021 09:13:56 09/30/2021 13:45:49 Severe pain 21964269 R52 fentanyl patch 50 mcgdilaudi d 1 mg q4hr prnprednis one 10 mg dailyrepos ition prnhospice consult and admission Osteoporosis 55169781 M8 1.0 methotrexa te 2.5 dronate 70 thursdaypred nisone 10 mg daily Osteoarthritis 486895552 M19.90 dilaudid 1 mg q4 hr prnfentany l 50 mcg patch Mixed anxi ety and depressive disorder 249577652 F41.8 wellbutrin xl 150 mg bid Hypothyroidism 63046749 E03.9 levothyrox ine 200 mcg daily Gastroesop hageal reflux disease without esophagitis 050858568 K21.9 omeprazole 40 mg daily Adult fail ure to thrive syndrome 836793830 R62.7 encourage po intake Fall W19.XXXA PT OT eval and treatfall precaution sfrequent safety checks Atrial fibrillation 4943 6004 I48.91 eliquis 5 mg bidlasix 40 mg daily Hyperlipidemia 44013231 E78.5 atorvastat in 40 mg daily [id number] MD KAREEM Whitaker [place] [address] [place] [address] 09/26/2021 15:54:36 09/30/2021 14:03:56 Osteoporosis 53267806 M81.0 Will d/c alendronat e Osteoarthritis 120160805 M15.0 Unclear what she is on MTX for, if it's OA or pulmonary fibrosis.C ontinue methotrexa te 2.5 mg weekly.Chelsi n control as above. Mixed anxi ety and depressive disorder 471437674 F41.8 Continue wellbutrin xl 150 mg BID.Monito r mood. Hypothyroidism 68643530 E03.8 With elevated TSH, but nl FT4. Will leave dosing as is for now, bayron. since pt is transition ing to hospice.Co ntinue levothyrox ine 200 mcg qd.No further labs. Gastroesop hageal reflux disease without esophagitis 646247846 K21.9 Continue omeprazole 40 mg qd.Monitor sxs/ Adult fail ure to thrive syndrome 144322262 R62.7 Continue oral supplement s as able. Fall W19.XXXA Unable to participat e in rehab.Cont inue fall precaution s.Monitor for safety. Atrial fibrillation 4943 6004 I48.0 Rate in good control on no rate controllin g meds.Leonora nue eliquis 5 mg BID for AC.Monitor HR and bleeding risk Hyperlipidemia 49096723 E78.49 Will d/c atorvastat inNo further labs Spinal roni nosis of lumbar region 77437391 M48.062 With continued distress, unclear how much is pain and how much is behavioral .Will start roxanol 5 mg q 4 hrs scheduled and q 1 hr prn. Hold for oversedati on.Continu e fentanyl patch 50 mcg q 72 hrs and dilaudid 1 mg q 4 hrs prnContinu e prednisone 10 mg qd.Hospice consult pending. [id number] MIKIE DUONG [address] [place] [address] 09/27/2021 10:49:34 09/30/2021 14:31:05 Mixed anxiety and depressive disorder 823795608 F41.8 wellbutrin xl 150 mg bid-pm dose is 50 mg a week decrease until donethen remeron can be startedris perdal 0.5 mg bidAIMs 0 Adult fail ure to thrive syndrome 139252909 R62.7 encourage po intakereme sonal 7.5 mg [id number] MIKIE DUONG [address] [place] [address] 09/30/2021 12:53:54 10/04/2021 13:57:38 Mixed anxiety and depressive disorder 252976023 F41.8 wellbutrin xl 150 mg bid-pm dose is 100 mg decrease for 7 days then discontinu ishan remeron can be startedris perdal 0.5 mg bid-decrea sed to 0.25 mg am, 0.5 mg hsAIMs 0 Adult fail ure to thrive syndrome 551918050 R62.7 encourage po intakereme sonal 7.5 mg hs when hs wellbutrin finished Spinal roni nosis of lumbar region 43339462 M48.062 fentanyl patch 50 mcg q72 daysdilaud id 1 mg q4hr prnprednis on 10 mg daily [id number] Ana Damon MD [address] [address] 10/01/2021 19:18:36 10/04/2021 14:59:14 Spinal stenosis of lumbar region 31921379 M48.062 Continue fentanyl patch 50 mcg q 72 hrs and dilaudid 1 mg q 4 hrs prnContinu e prednisone 10 mg qd.Reconsi jeff hospice consult if pt. not able to tolerate med changes as below. Mixed anxi ety and depressive disorder 881702933 F41.8 Continue Wellbutrin 150 mg qAM and PM dose 100 mg until 10/08 then d/c pm doseStart mirtazapin e 7.5 mg qhs on 10/08Contin ue risperdal 0.25 mg qam and 0.5 mg qhsMonitor effect. Adult fail ure to thrive syndrome 413949703 R62.7 encourage po intakeStar t remeron 7.5 mg hs when hs wellbutrin finished as above. [id number] BRYANNA URBANO NP [address] [address] 10/03/2021 10:04:53 10/09/2021 15:41:28 Adult failure to thrive syndrome 400901466 R62.7 encourage po intakereme sonal 7.5 mg hs when hs wellbutrin finished 10/08 Mixed anxi ety and depressive disorder 801173427 F41.8 wellbutrin xl 150 mg bid-pm dose is 100 mg decrease for 7 days then discontinu e 10/08then remeron can be startedris perdal 0.5 mg bid-decrea sed to 0.25 mg am, 0.5 mg hsAIMs 0 Severe pain 14535053 R52 fentanyl patch 50 mcgdilaudi d 1 mg q4hr prn-d/c due to lack of useprednis one 10 mg dailyrepos ition prnhospice consult and admissionr oxanol was d/c due to morphine allergy [id number] BRYANNA URBANO NP [address] [address] 10/09/2021 10:18:53 10/14/2021 14:25:24 Mixed anxiety and depressive disorder 113755342 F41.8 wellbutrin xl 150 mg bid-pm dose is 100 mg decrease for 7 days then discontinu e 10/08then remeron can be startedris perdal 0.5 mg hs-am dose d/cAIMs 0 Adult fail ure to thrive syndrome 633601452 R62.7 encourage po intakereme sonal 7.5 mg hs when hs wellbutrin finished 10/08 Severe pain 87896310 R52 fentanyl patch 50 mcgdilaudi d 1 mg q4hr prn-d/c due to lack of useprednis one 10 mg dailyrepos ition prnhospice consult and admissionr oxanol was d/c due to morphine allergy [id number] BRYANNA URBANO NP [address] [address] 10/11/2021 10:22:56 10/14/2021 15:05:22 Mixed anxiety and depressive disorder 850505815 F41.8 wellbutrin xl 150 mg bid-pm dose is 100 mg decrease for 7 days then discontinu e 10/08then remeron can be startedris perdal 0.5 mg hs-am dose d/cAIMs 0 Adult fail ure to thrive syndrome 629269093 R62.7 encourage po intakereme sonal 7.5 mg hs when hs wellbutrin finished 10/08 Severe pain 27826104 R52 fentanyl patch 50 mcgdilaudi d 1 mg q4hr prn-d/c due to lack of useprednis one 10 mg dailyrepos ition prnhospice consult and admissionr oxanol was d/c due to morphine allergy [id number] BRYANNA URBANO NP [address] [address] 10/14/2021 12:20:18 10/16/2021 14:26:14 Severe pain 75241223 R52 fentanyl patch 50 mcgprednis one 10 mg dailyrepos ition prnroxanol was d/c due to morphine allergy Mixed anxi ety and depressive disorder 192949473 F41.8 wellbutrin xl 150 mgremeron 7.5 mg dailyrispe rdal 0.5 mg hs-am dose d/cAIMs 0 Fall W19.XXXA PT OT eval and treatfall precaution sfrequent safety checks [id number] BRYANNA URBANO NP [address] [address] 10/16/2021 13:18:48 10/23/2021 10:49:11 Adult failure to thrive syndrome 877336278 R62.7 encourage po intakereme sonal 7.5 mg hs when hs wellbutrin finished 10/08 Mixed anxi ety and depressive disorder 862161475 F41.8 wellbutrin xl 150 mgremeron 7.5 mg dailyrispe rdal 0.5 mg hs-am dose d/cAIMs 0 Severe pain 47819490 R52 fentanyl patch 50 mcgprednis one 10 mg dailyrepos ition prnroxanol was d/c due to morphine allergy Edema 206559911 R60.9 lasix 40 mg daily will increase to bid for 7 days [id number] NELDA Gardiner [address] [address] 10/18/2021 11:22:25 10/23/2021 11:24:28 Adult failure to thrive syndrome 243616543 R62.7 Appetite improveden courage po intakereme sonal 7.5 mg QHSMonitor weights Mixed anxi ety and depressive disorder 613482883 F41.8 wellbutrin xl 150 mgremeron 7.5 mg dailyrispe rdal 0.5 mg hsMonitor moodPsych eval prn Severe pain 81795557 R52 fentanyl patch 50 mcgprednis one 10 mg dailyBack pain now well controlled Monitor Edema 968575772 R60.9 Lasix 40 mg BIDACE wraps BLEElevate legs as toleratedM onitor [id number] BRYANNA URBANO NP [address] [address] 10/21/2021 10:50:08 10/23/2021 11:52:29 Edema 740261507 R60.9 lasix 40 mg bidmetolaz one 2.5 mg tues, thursace wraps Severe pain 72154774 R52 fentanyl patch 50 mcgprednis one 10 mg dailyrepos ition prnroxanol was d/c due to morphine allergy [id number] BRYANNA URBANO NP [address] [place] [address] 10/24/2021 10:43:36 10/29/2021 12:14:04 Edema 132795511 R60.9 lasix 40 mg bidmetolaz one 2.5 mg tues, thurs, add a dose sundayace wraps Adult fail ure to thrive syndrome 736558895 R62.7 encourage po intakereme sonal 7.5 mg hs Mixed anxi ety and depressive disorder 690437457 F41.8 wellbutrin xl 150 mgremeron 7.5 mg dailyrispe rdal 0.5 mg hs- decrease hs dose to 0.25 mgAIMs 0 [id number] BRYANNA URBANO NP [address] [place] [address] 10/30/2021 10:59:13 11/05/2021 10:01:44 Adult failure to thrive syndrome 059001366 R62.7 encourage po intakereme sonal 7.5 mg hs Mixed anxi ety and depressive disorder 449756574 F41.8 wellbutrin xl 150 mgremeron 7.5 mg dailyrispe rdal 0.25 mg- discontinu eAIMs 0 Severe pain 13408325 R52 fentanyl patch 50 mcgprednis one 10 mg dailyrepos ition prnroxanol was d/c due to morphine allergy [id number] Ana Damon MD [address] [address] 11/19/2021 18:25:18 11/25/2021 15:04:26 Adult failure to thrive syndrome 650092100 R62.7 Doing much better. Wt. has been stable.Say s her appetite is good.Leonora nue mirtazapin e 7.5 mg qhs.Monito r wts. Mixed anxi ety and depressive disorder 246346598 F41.8 Mood good today.Cont inue wellbutrin XL 150 mg qd and mirtazapin e 7.5 mg qhsMonitor mood.Consu lt psych prn Severe pain 59141577 R52 Under good control on fentanyl patch 50 mcg q 3 days, prednisone 10 mg qd, and APAP prnRestart ing PT this week.Monit ro Edema 993636258 R60.0 Continue lasix 40 mg BID and metolazone 2.5 mg 2x/wk on & .Cont inue wilma wraps daily.Carmela tor Hypokalemia 28540024 E87 .6 With borderline low K+ for awhile. Has never been on K+ supplement .Will recheck next week and if still low will add KCL 10 meq qd.Monitor [id number] MIKIE DUONG [address] [place] [address], [place] [address] 12/12/2021 10:09:42 12/17/2021 16:08:08 Adult failure to thrive syndrome 054241958 R62.7 Doing much better. Wt. has been stable.Say s her appetite is good.Leonora nue mirtazapin e 7.5 mg qhs.Monito r wts. Mixed anxi ety and depressive disorder 723694446 F41.8 Mood good today.well butrin XL 150 mg qd and mirtazapin e 7.5 mg qhsMonitor mood.Consu lt psych prn Severe pain 58325713 R52 Under good control on fentanyl patch 50 mcg q 3 days, prednisone 10 mg qd, and APAP prnRestart ing PT this week.Monit ro Edema 272972025 R60.0 lasix 40 mg BIDmetolaz one 2.5 mg 2x/wk on & .Cont inue wilma wraps daily.Carmela tor Hypokalemia 30770954 E87 .6 With borderline low K+ for awhile. Has never been on K+ supplement .Will recheck next week and if still low will add KCL 10 meq qd.Monitor Atrial fibrillation 4943 6004 I48.0 eliquis 5 mg bidlasix 40 mg bid daily Gastroesop hageal reflux disease without esophagitis 840013598 K21.9 omeprazole 40 mg daily Hyperlipidemia 76559145 E78.49 atorvastat in 40 mg daily Hypothyroidism 70901060 E03.8 levothyrox ine 200 mcg daily Osteoarthritis 367432941 M15.0 fentanyl 50 mcg patch q72 hr Osteoporosis 13325925 M8 1.0 methotrexa te 2.5 len dronate 70 thursdaypred nisone 10 mg daily Spinal roni nosis of lumbar region 02564569 M48.062 fentanyl patch 50 mcg q72 hourspredn isone 10 mg daily Fall W19.XXXA PT OT eval and treatfall precaution sfrequent safety checks [id number] MIKIE DUONG [place] [address] [place] [address] rd [place] [address] 01/03/2022 14:55:57 01/06/2022 20:46:48 Pancreatitis 27287876 K85.90 monitor for symptomsmo nitor labs Adult fail ure to thrive syndrome 689261611 R62.7 Doing much better. Wt. has been stable.Say s her appetite is good.gary zapine 7.5 mg qhs.Monito r wts. Mixed anxi ety and depressive disorder 660784805 F41.8 Mood good today.well butrin XL 150 mg bidmirtaza pine 7.5 mg qhsMonitor mood.Consu lt psych prn Severe pain 68569486 R52 Under good control on fentanyl patch 50 mcg q 3 days,predn isone 10 mg qd,APAP 650 mg q4hr prnPT OT eval and treat prnMonitor Edema 021051912 R60.0 lasix 40 mg BIDmetolaz one 2.5 mg 2x/wk on & , thursday.Con tinue wilma wraps daily.Carmela tor Hypokalemia 84412933 E87 .6 With borderline low K+ for awhile. Has never been on K+ supplement .Monitor Atrial fibrillation 4943 6004 I48.0 eliquis 5 mg bidlasix 40 mg bid dailymetol azone 2.5 mg , Gastroesop hageal reflux disease without esophagitis 702310014 K21.9 omeprazole 40 mg daily Hyperlipidemia 63972229 E78.49 atorvastat in 40 mg daily Hypothyroidism 40288737 E03.8 levothyrox ine 200 mcg daily Osteoarthritis 795976343 M15.0 fentanyl 50 mcg patch q72 hr Osteoporosis 68122327 M8 1.0 prednisone 10 mg daily Spinal roni nosis of lumbar region 41674523 M48.062 fentanyl patch 50 mcg q72 hourspredn isone 10 mg daily Fall W19.XXXA PT OT eval and treatfall precaution sfrequent safety checks [id number] BRYANNA URBANO NP [address] [address] 01/06/2022 10:28:02 01/09/2022 13:18:55 Edema 757326195 R60.0 lasix 40 mg BIDmetolaz one 2.5 mg 2x/wk on thursday.Con tinue wilma wraps daily.Carmela tor Pancreatitis 58769426 K8 5.90 monitor for symptomsmo nitor labs [id number] BRYANNA URBANO NP [address] [address] 01/08/2022 12:46:02 01/10/2022 16:30:00 Edema 292156792 R60.0 lasix 40 mg BIDmetolaz one 2.5 mg 2x/wk on thursday.Con tinue wilma wraps daily-comp ression stockingsM onitor Pancreatitis 87312777 K8 5.90 monitor for symptomsmo nitor labs [id number] BRYANNA URBANO NP [address] [address] 01/10/2022 11:53:05 01/14/2022 12:50:34 Hypothyroidism 81569898 E03.8 levothyrox ine 200 mcg daily-incr ease to 225 mcgrecheck tsh-free T4 in 6 weeks [id number] Ana Damon MD [address] [address] 02/11/2022 16:58:31 02/19/2022 16:14:54 Hypothyroidism 10903762 E03.8 Levothyrox ine was increased from 200 mcg qd to 225 mcg qd on 01/13 due to TSH of 12.24. Free T4 was WNL.Due for recheck of TSH and FT4 in a week or two. Adult fail ure to thrive syndrome 575928093 R62.7 Doesn't really have this dx anymore. Her wt. has been stable and her appetite is good.Leonora nue mirtazapin e 7.5 mg qhs.Monito r wts. Mixed anxi ety and depressive disorder 589995095 F41.8 Mood good today.Cont inue wellbutrin XL 150 mg qd and mirtazapin e 7.5 mg qhsMonitor mood.Psych following, may try a GDR. Edema 052250475 R60.0 Continue lasix 40 mg BID and metolazone 2.5 mg 2x/wk on & .Cont inue WILMA wraps qd.Monitor Chronic pancreatitis 235 631113 K86.1 Under good control on fentanyl patch 50 mcg q 3 days, prednisone 10 mg qd, and APAP 650 mg q 6 hrs prnMonitor . Generalize d osteoarthritis 174346629 M15.0 Pain control as above.Also diclofenac gel to shoulders BID and hands prn.Will add lidocaine patches to shoulders, low back and elbows as needed.PT/ OT as needed.Mon itor [id number] MIKIE DUONG [address] [address] 02/25/2022 11:22:33 03/10/2022 20:26:15 Hypothyroidism 42854028 E03.8 levothyrox ine 225 mcgrecheck tsh-free T4 in 6 weeks Spinal roni nosis of lumbar region 02445377 M48.062 fentanyl patch 50 mcg q72 hourspredn isone 10 mg daily [id number] BRYANNA URBANO NP [address] [address] 03/28/2022 11:18:57 04/03/2022 10:05:40 Generalized osteoarthritis 092910510 M15.0 tramadol 25 mg q6hr prndiclofe nac gel to shoulders BID and hands prn.Will add lidocaine patches to shoulders, low back and elbows as needed.PT/ OT as needed.Mon itor Severe pain 18752274 R52 Under good control on fentanyl patch 50 mcg q 3 days,predn isone 10 mg qd,APAP 650 mg q4hr prnPT OT eval and treat prnMonitor [id number] BRYANNA URBANO NP [address] [place] [address] 04/04/2022 10:53:36 04/08/2022 15:25:03 Mixed anxiety and depressive disorder 080889640 F41.8 Mood good today.well butrin XL 150 mg bidmirtaza pine 7.5 mg qhsMonitor mood.Consu lt psych prn Severe pain 76508258 R52 fentanyl patch 50 mcg q 3 days,predn isone 10 mg qd,APAP 1000 mg tidtramado l 25 mg bid prnPT OT eval and treat prnMonitor Edema 179037377 R60.0 lasix 40 mg BIDmetolaz one 2.5 mg 2x/wk on & , thursday.Con tinue wilma wraps daily.Carmela tor Hypokalemia 72372541 E87 .6 With borderline low K+ for awhile. Has never been on K+ supplement .Monitor Atrial fibrillation 4943 6004 I48.0 eliquis 5 mg bidlasix 40 mg bid dailymetol azone 2.5 mg , Gastroesop hageal reflux disease without esophagitis 944932541 K21.9 omeprazole 40 mg daily Hyperlipidemia 75825813 E78.49 monitor Hypothyroidism 26875227 E03.8 levothyrox ine 225 mcg daily Osteoarthritis 145993067 M15.0 fentanyl 50 mcg patch q72 hrAPAP 1000 mg tidtramado l 25 mg bid prnglucosa mine 500 mg tid Osteoporosis 84993617 M8 1.0 prednisone 10 mg daily Spinal roni nosis of lumbar region 96474361 M48.062 fentanyl patch 50 mcg q72 hourspredn isone 10 mg daily Fall W19.XXXA PT OT eval and treatfall precaution sfrequent safety checks Adult fail ure to thrive syndrome 860150617 R62.7 Doing much better. Wt. has been stable.Say s her appetite is good.gary zapine 7.5 mg qhs.Monito r wts. Generalize d osteoarthritis 444802997 M15.0 tramadol 25 mg bid prndiclofe nac gel to shoulders BID and hands prn.Will add lidocaine patches to shoulders, low back and elbowsgluc osamine 500 mg bidPT/OT as needed.Mon itor [id number] BRYANNA URBANO NP [address] [address] 04/10/2022 12:09:08 04/22/2022 16:17:48 Generalized osteoarthritis 692030829 M15.0 tramadol 25 mg bid prndiclofe nac gel to shoulders BID and hands prn.Will add lidocaine patches to shoulders, low back and elbowsgluc osamine 500 mg bidtizanad ine 2 mg bidPT/OT as needed.Mon itor Severe pain 27906882 R52 fentanyl patch 50 mcg q 3 days,predn isone 10 mg qd,APAP 1000 mg tiddiclofe nac gel and lido patchestiz anidine 2 mg bidtramado l 25 mg bid prnPT OT eval and treat prnMonitor [id number] BRYANNA URBANO NP [address] [address] 05/07/2022 10:29:27 05/09/2022 15:20:45 Pancreatitis 44496068 K85.90 monitor for symptomsmo nitor labs Mixed anxi ety and depressive disorder 205971968 F41.8 Mood good today.well butrin XL 150 mg bidmirtaza pine 7.5 mg qhsMonitor mood.Consu lt psych prn Severe pain 49524657 R52 fentanyl patch 50 mcg q 3 days,predn isone 10 mg qd,APAP 1000 mg tidtramado l 25 mg bid prnPT OT eval and treat prnMonitor Edema 076390735 R60.0 lasix 40 mg BIDmetolaz one 2.5 mg 2x/wk on & , thursday.Con tinue wilma wraps daily.Carmela tor Hypokalemia 49976344 E87 .6 With borderline low K+ for awhile. Has never been on K+ supplement .Monitor Atrial fibrillation 4943 6004 I48.0 eliquis 5 mg bid-on hold due to buttock bruiselasi x 40 mg bid dailymetol azone 2.5 mg , , doan Gastroesop hageal reflux disease without esophagitis 199019251 K21.9 omeprazole 40 mg daily Hyperlipidemia 19188366 E78.49 monitor Hypothyroidism 41371743 E03.8 levothyrox ine 225 mcg daily Osteoarthritis 972452292 M15.0 fentanyl 50 mcg patch q72 hrAPAP 1000 mg tidtramado l 25 mg bid prnglucosa mine 500 mg tid Osteoporosis 66231546 M8 1.0 prednisone 10 mg daily Spinal roni nosis of lumbar region 75474088 M48.062 fentanyl patch 50 mcg q72 hourspredn isone 10 mg daily Fall W19.XXXA PT OT eval and treatfall precaution sfrequent safety checks Adult fail ure to thrive syndrome 156918423 R62.7 Doing much better. Wt. has been stable.Say s her appetite is good.gary zapine 7.5 mg qhs.Monito r wts. Generalize d osteoarthritis 039188769 M15.0 tramadol 25 mg bid prndiclofe nac gel to shoulders BID and hands prn.Will add lidocaine patches to shoulders, low back and elbowsgluc osamine 500 mg bidPT/OT as needed.Mon itor Contusion 907808470 T14. 8XXA monitor bruising for extension or lesseningh old eliquis [id number] Samina Wilburn MD [address] [address] 05/30/2022 07:35:26 06/04/2022 16:14:23 Chronic pain 87375094 G89.29 diclofenac gel 1% to shoulders bid, to both hands and spine prnfentany l patch 50 mcg q72 hsalonpas patch to right shoulder dailyAPAP 1000 mg tidtramado l 25 mg bidtizanid ine 2 mg bidprednis one 10 mg dailyPT/OT /PM&R prnwill monitor Mixed anxi ety and depressive disorder 838292777 F41.8 bupropion SR 150 mg dailymirta zapine 7.5 mg at hswill monitor Hypothyroidism 30300183 E03.8 levothyrox ine 225 mcg dailywill monitor Atrial fibrillation 4943 6004 I48.0 consider restart ACheld due to hematoma Type 2 russel betes mellitus 77540220 E11.9 insulin aspart per sliding scalewill monitor Edema 847885129 R60.0 furosemide 40 mg dailymetol azone 2.5 mg daily on T, Th, Sawill monitor Gastroesop hageal reflux disease without esophagitis 617036971 K21.9 omeprazole 40 mg bidwill monitor Recurrent pancreatitis 222820183 K86.1 fu GI prnlow fat dietwill monitor [id number] BRYANNA URBANO NP KAREEM HAYNES [address] [place] [address] 07/21/2022 10:43:42 08/01/2022 13:30:09 COVID-19 653108750 U07.1 07/20 covid positiveen courage po food and fluidscons ider ivf for anorexiaco nsider paxlovid or decadron for symptomsse nd to ED for decompensa tion [id number] BRYANNA URBANO NP [address] [address] 07/23/2022 11:28:07 08/01/2022 14:08:08 COVID-19 341359176 U07.1 07/20 covid positiveen courage po food and fluidscons ider ivf for anorexiaco nsider paxlovid or decadron for symptomsse nd to ED for decompensa tion Chronic pain 41473314 G8 9.29 diclofenac gel 1% to shoulders bid, to both hands and spine prnfentany l patch 50 mcg q72 hsalonpas patch to right shoulder dailyAPAP 1000 mg tidtramado l 25 mg bidtizanid ine 2 mg bidprednis one 10 mg dailyPT/OT /PM&R prnwill monitor Mixed anxi ety and depressive disorder 371418196 F41.8 bupropion SR 150 mg dailymirta zapine 7.5 mg at hswill monitor Hypothyroidism 50459562 E03.8 levothyrox ine 225 mcg dailywill monitor Atrial fibrillation 4943 6004 I48.0 eliquis 2.5 mg bidmonitor for any hematomas Type 2 russel betes mellitus 17013307 E11.9 insulin aspart per sliding scalewill monitor Edema 559778321 R60.0 furosemide 40 mg dailymetol azone 2.5 mg daily on T, Th, Sawill monitor Gastroesop hageal reflux disease without esophagitis 204961023 K21.9 omeprazole 40 mg bidwill monitor Recurrent pancreatitis 018707165 K86.1 fu GI prnlow fat dietwill monitor [id number] BRYANNA URBANO NP [facility] [address] [place] [address] 07/25/2022 10:22:57 08/01/2022 15:15:29 COVID-19 271729303 U07.1 07/20 covid positiveen courage po food and fluidscons ider ivf for anorexiaco nsider paxlovid or decadron for symptomsse nd to ED for decompensa tion [id number] BRYANNA URBANO NP [address] [address] 07/30/2022 11:27:21 08/01/2022 15:57:11 COVID-19 477105490 U07.1 07/20 covid positive-a symptomati c, recovered by dateencour age po food and fluidscons ider ivf for anorexiaco nsider paxlovid or decadron for symptomsse nd to ED for decompensa tion [id number] BRYANNA URBANO NP [address] [address] 07/31/2022 12:15:38 08/05/2022 18:21:58 COVID-19 746611712 U07.1 07/20 covid positive-a symptomati c, recovered by dateencour age po food and fluidscons ider ivf for anorexiaco nsider paxlovid or decadron for symptomsse nd to ED for decompensa tionCXR ordered for 07/31 Pancreatitis 29422675 K8 5.90 monitor for symptomsmo nitor labs [id number] BRYANNA URBANO NP [address] [address] 08/01/2022 11:59:17 08/06/2022 08:14:07 COVID-19 969959668 U07.1 07/20 covid positive-a symptomati c, recovered by dateencour age po food and fluidscons ider ivf for anorexiaco nsider paxlovid or decadron for symptomsse nd to ED for decompensa tionCXR ordered for 07/31-negati ve for chf or pna [id number] MIKIE Dasilva [facility] [place] [address] 08/09/2022 10:30:12 08/13/2022 13:00:41 COVID-19 249811849 U07.1 resolved- no new treatment in hospital documentof f isolation precaution scovid rapid negative in facility on 08/09/22 per nursingmon itor for sequelae note: 07/20 covid positive-a symptomati c, recovered by dateencour age po food and fluidscons ider ivf for anorexiaco nsider paxlovid or decadron for symptomsse nd to ED for decompensa tionCXR ordered for 07/31-negati ve for chf or pna Pancreatitis 06197863 K8 5.90 was treated with ivf, medication s, and pain adjuncts- now improvedmo nitor for symptomsav oid fatty foods on low fat dietmonito r labs Chronic pain 90657190 G8 9.29 contdiclof enac gel 1% to shoulders bid, to both hands and spine prnfentany l patch 50 mcg q72 hsalonpas patch to right shoulder dailyAPAP 1000 mg tidtramado l 25 mg bidtizanid ine 2 mg bidprednis one 10 mg dailyPT/OT for weakness and painwill monitor Recurrent pancreatitis 614394257 K86.1 fu GI prnlow fat dietwill monitor Dislocatio n of shoulder joint 996705141 S43.004A pt has right shoulder dislocatio ncontinue pain meds as belowsling and swath as toleratedp assive romPT/OTfu with Dr Velasquez outptmonit or for cms, pulses, disclorati on [id number] MIKIE DUONG [address] [facility] [place] [address] 08/11/2022 10:07:53 08/13/2022 13:35:33 Pancreatitis 75548735 K85.90 monitor for symptomsmo nitor labswas treated with ivf, medication s, and pain adjuncts- now improvedmo nitor for symptomsav oid fatty foods on low fat diet Dislocatio n of shoulder joint 608409809 S43.004A pt has chronic right shoulder dislocatio ncontinue pain medssling and swath as toleratedp assive romPT/OTfu with Dr Velasquez outptmonit or for cms, pulses, disclorati on [id number] MIKIE DUONG [place] [address] [facility] [place] [address] 08/25/2022 11:17:28 08/27/2022 14:05:17 Pancreatitis 60295364 K85.90 monitor for symptomsmo nitor labswas treated with ivf, medication s, and pain adjuncts- now improvedmo xifloxin 400 mg daily x4 daysmonito r for symptoms avoid fatty foods on low fat diet Dislocatio n of shoulder joint 384205626 S43.004A pt has chronic subluxatio n right shoulder dislocatio ncontinue pain meds as belowsling and swath as toleratedp assive romPT/OTfu with Dr Velasquez outptmonit or for cms, pulses, disclorati on Chronic pain 84009389 G8 9.29 contdiclof enac gel 1% to shoulders bid, to both hands and spine prnfentany l patch 50 mcg q72 hsalonpas patch to right shoulder dailyAPAP 1000 mg tidtramado l 25 mg bidtizanid ine 2 mg bidprednis one 10 mg dailyPT/OT for weakness and painwill monitor COVID-19 755603109 U07.1 resolved- no new treatment in hospital documentof f isolation precaution scovid rapid negative in facility on 08/09/22 per nursingmon itor for sequelae note: 07/20 covid positive-a symptomati c, recovered by dateencour age po food and fluidscons ider ivf for anorexiaco nsider paxlovid or decadron for symptomsse nd to ED for decompensa tionCXR ordered for 07/31-negati ve for chf or pna Recurrent pancreatitis 373365752 K86.1 f/u GI prnlow fat dietwill monitor [id number] BRYANNA URBANO NP KAREEM HAYNES [address] [facility] [place] [address] 09/04/2022 10:39:19 09/08/2022 15:11:55 Dislocation of shoulder joint 284234378 S43.004A pt has chronic subluxatio n right shoulder dislocatio ncontinue pain meds as belowsling and swath as tolerated for comfort prnPT/Edilson/ u with Dr Velasquez outptmonit or for cms, pulses, disclorati on Mixed anxi ety and depressive disorder 186678918 F41.8 bupropion SR 150 mg dailymirta zapine 7.5 mg at hswill monitor [id number] Samina Wilburn MD [address] [place] [address] 10/01/2022 10:06:00 10/03/2022 11:00:52 Atrial fibrillation 30501259 I48.0 apixaban 2.5 mg bidwill monitor Recurrent pancreatitis 062891554 K86.1 fu GIlow fat dietwill monitor Gastroesop hageal reflux disease without esophagitis 628072477 K21.9 omeprazole 40 mg bidwill monitor Type 2 russel betes mellitus 62667929 E11.9 insulin aspart per sliding scalewill monitor Chronic pain 03374667 G8 9.29 diclofenac gel 1% to shoulders bid, to both hands and spine prnfentany l patch 50 mcg q72 hsalonpas patch to right shoulder dailyAPAP 1000 mg tidtramado l 25 mg bidtizanid ine 2 mg bidprednis one 10 mg dailyPT/OT /PM&R prnwill monitor Peripheral edema 9554911 00 R60.0 metolazone 2.5 mg , Th, Sufurosemi de 40 mg bidwill monitor Hypothyroidism 96305032 E03.8 levothyrox ine 225 mcg dailywill monitor Mixed anxi ety and depressive disorder 417153288 F41.8 bupropion SR 150 mg dailymirta zapine 7.5 mg at hstizanidi ne 2 mg bidwill monitor Essential hypertension 84537383 I10 metolazone 2.5 mg daily on , , Safurosemi de 40 mg bidwill monitor [id number] BRYANNA URBANO NP [address] [place] [address] 10/15/2022 14:06:21 10/20/2022 14:25:22 Atrial fibrillation 81477465 I48.0 apixaban 2.5 mg bidwill monitor Recurrent pancreatitis 900587842 K86.1 fu GIlow fat dietwill monitor Gastroesop hageal reflux disease without esophagitis 548660342 K21.9 omeprazole 40 mg bidwill monitor Type 2 russel betes mellitus 15362162 E11.9 insulin aspart per sliding scalewill monitor Chronic pain 98693949 G8 9.29 diclofenac gel 1% to shoulders bid, to both hands and spine prnfentany l patch 50 mcg q72 hsalonpas patch to right shoulder dailyAPAP 1000 mg tidtramado l 25 mg bidtizanid ine 2 mg bidprednis one 10 mg dailyPT/OT /PM&R prnwill monitor Peripheral edema 8971967 00 R60.0 metolazone 2.5 mg , Th, Sufurosemi de 40 mg bidwill monitor Hypothyroidism 77862945 E03.8 levothyrox ine 225 mcg dailywill monitor Mixed anxi ety and depressive disorder 009749249 F41.8 bupropion SR 150 mg dailymirta zapine 7.5 mg at hstizanidi ne 2 mg bidwill monitor Essential hypertension 61949539 I10 metolazone 2.5 mg daily on , , Safurosemi de 40 mg bidwill monitor [id number] MIKIE DUONG [address] [place] [address] 11/28/2022 13:21:24 12/03/2022 17:20:32 Atrial fibrillation 43566560 I48.0 apixaban 2.5 mg bidwill monitor Recurrent pancreatitis 488608260 K86.1 f/u GIlow fat dietwill monitor Gastroesop hageal reflux disease without esophagitis 722888370 K21.9 omeprazole 40 mg bidwill monitor Type 2 russel betes mellitus 07580473 E11.9 insulin aspart per sliding scalewill monitor Chronic pain 83310007 G8 9.29 diclofenac gel 1% to shoulders bid, to both hands and spine prnfentany l patch 50 mcg q72 hsalonpas patch to right shoulder dailyAPAP 1000 mg tidtramado l 25 mg bidtizanid ine 2 mg bidprednis one 10 mg dailyPT/OT /PM&R prnwill monitor Peripheral edema 0439646 00 R60.0 metolazone 2.5 mg , , Sufurosemi de 40 mg bidwill monitor Hypothyroidism 92181489 E03.8 levothyrox ine 225 mcg dailywill monitor Mixed anxi ety and depressive disorder 137043639 F41.8 bupropion SR 150 mg dailymirta zapine 7.5 mg at hstizanidi ne 2 mg bidwill monitor Essential hypertension 73445221 I10 metolazone 2.5 mg daily on , , Safurosemi de 40 mg bidwill monitor [id number] BRYANNA URBANO NP [address] [address] 01/14/2023 14:00:23 01/16/2023 15:25:27 Mixed anxiety and depressive disorder 092586481 F41.8 bupropion SR 150 mg dailymirta zapine 7.5 mg at hstizanidi ne 2 mg bidwill monitor Severe pain 23025177 R52 fentanyl patch 50 mcg q 3 days,predn isone 10 mg qd,APAP 1000 mg tidtramado l 25 mg bid prnPT OT eval and treat prnMonitor Fall W19.XXXA PT OT eval and treatfall precaution sfrequent safety checks [id number] Samina Wilburn MD [address] [place] [address] 02/11/2023 10:06:26 02/13/2023 16:03:58 Mixed anxiety and depressive disorder 011835829 F41.8 bupropion SR 150 mg dailymirta zapine 7.5 mg at hswill monitor Atrial fibrillation 4943 6004 I48.0 apixaban 2.5 mg bidwill monitor Type 2 russel betes mellitus 71776209 E11.9 insulin aspart per sliding scalewill monitor Chronic pain 45973276 G8 9.29 diclofenac gel 1% to shoulders bid, to both hands and spine prnfentany l patch 50 mcg q72 hsalonpas patch to right shoulder dailyAPAP 1000 mg tidtramado l 25 mg bidtizanid ine 2 mg bidprednis one 10 mg dailyPT/OT /PM&R prnwill monitor Gastroesop hageal reflux disease without esophagitis 447936549 K21.9 omeprazole 40 mg bidwill monitor Hypothyroidism 00243445 E03.8 levothyrox ine 225 mcg dailywill monitor Edema 880393749 R60.0 furosemide 40 mg dailymetol azone 2.5 mg daily on T, Th, Sawill monitor [id number] Ana Damon MD [address] [place] [address] 03/20/2023 20:34:03 03/23/2023 14:49:16 Ecchymosis present 354537109 S80.02XA Probably bumped it and doesn't remember, no pain, so no tx needed.Mon itor for resolution and monitor for new ecchymoses . Nausea 274588355 R11.0 Mild, periodic and chronic.Wi ll start Zofran 4 mg q 6 hrs prnMonitor sxs. Chronic neck pain 278716 2429 107 M54.2 Already on multiple pain meds.Will start lidocaine patch to neck prn, pt. says it only hurts sometimes, so doesn't want it scheduled. Continue fentanyl patch 50 mcg q 72 hrs, APAP 1000 mg TID,tramad ol 25 mg BID,tizani dine 2 mg BID andprednis one 10 mg qd.Monitor sxs. [id number] BRYANNA URBANO NP [address] [place] [address] 04/03/2023 16:33:21 04/10/2023 09:59:49 Mixed anxiety and depressive disorder 145291775 F41.8 bupropion SR 150 mg dailymirta zapine 7.5 mg at hswill monitor Atrial fibrillation 4943 6004 I48.0 apixaban 2.5 mg bidwill monitor Type 2 russel betes mellitus 97505117 E11.9 insulin aspart per sliding scalewill monitor Chronic pain 92063237 G8 9.29 fentanyl patch 50 mcg q72 hsalonpas patch to right shoulder dailyAPAP 1000 mg tidtramado l 25 mg bidtizanid ine 2 mg bidprednis one 10 mg dailyPT/OT /PM&R prnwill monitor Gastroesop hageal reflux disease without esophagitis 800049939 K21.9 omeprazole 40 mg bidwill monitor Hypothyroidism 10161358 E03.8 levothyrox ine 225 mcg dailywill monitor Edema 205406378 R60.0 furosemide 40 mg dailymetol azone 2.5 mg daily on , , Sawill monitor [id number] MD KAREEM Whitaker [address] [facility] [place] [address] 05/29/2023 18:52:13 06/12/2023 13:46:31 Mixed anxiety and depressive disorder 546503084 F41.8 Mood good tonight.Co ntinue bupropion SR 150 mg qd and mirtazapin e 7.5 mg qhsMonitor mood.Psych follows Atrial fibrillation 4943 6004 I48.0 Rate in good control on no rate controllin g meds.Leonora nue eliquis 2.5 mg BID for AC.Monitor HR and bleeding risk. Type 2 russel betes mellitus 61463428 E11.9 Last HgA1C 7.6 in 03/2022.Sug ars in adequate control on diet control with occ. SSI.Monito r fingerstic ks TID, due for recheck of HgA1C, forgot to order. Chronic pain 96840489 G8 9.29 Will add diclofenac gel for hands BID.Contin ue fentanyl patch 50 mcg q 72 hrs, salonpas patch to right shoulder qd, APAP 1000 mg TID, tramadol 25 mg BID, tizanidine 2 mg BID, and prednisone 10 mg qd.Continu e rehab as able.Monit or sxs. Gastroesop hageal reflux disease without esophagitis 301783508 K21.9 No current sxs.Contin ue omeprazole 40 mg BID.Monito r sxs Hypothyroidism 57110076 E03.8 TSH WNL.Contin ue levothyrox ine 225 mcg qdMonitor TSH yearly. Edema 332178466 R60.0 At baseline.C ontinue furosemide 40 mg qd and metolazone 2.5 mg qd on , , SaMonitor sxs. [id number] MIKIE DUONG [address] [facility] [place] [address] 06/29/2023 12:07:31 07/07/2023 18:16:09 Fall 4416708 W19.XXXA PT OT eval and treatfall precaution sfrequent safety checks Contusion of face 840029 004 S00.83XA monitor neurosmoni tor for any signs of infectionm onitor for resolution of the bruising [id number] BRYANNA URBANO NP [address] [address] 07/01/2023 12:23:08 07/07/2023 19:15:00 Contusion of face 697929271 S00.83XA monitor neurosmoni tor for any signs of infectionm onitor for resolution of the bruising Edema 806853538 R60.0 furosemide 40 mg dailymetol azone 2.5 mg daily on T, Th, Sawill monitor [id number] BRYANNA URBANO NP [address] [address] 07/24/2023 12:53:42 08/04/2023 13:25:11 Contusion of face 890035868 S00.83XA resolvedmo nitor neurosmoni tor for any signs of infectionm onitor for resolution of the bruising Edema 018734270 R60.0 furosemide 40 mg dailymetol azone 2.5 mg daily on T, Th, Sawill monitor Fall W19.XXXA PT OT eval and treatfall precaution sfrequent safety checks Mixed anxi ety and depressive disorder 564421600 F41.8 bupropion SR 150 mg dailymirta zapine 7.5 mg at hswill monitor Atrial fibrillation 4943 6004 I48.0 apixaban 2.5 mg bidwill monitor Type 2 russel betes mellitus 87661292 E11.9 insulin aspart per sliding scalewill monitor Chronic pain 05971916 G8 9.29 fentanyl patch 50 mcg q72 hsalonpas patch to right shoulder dailyAPAP 1000 mg tidtramado l 25 mg bidtizanid ine 2 mg bidprednis one 10 mg dailyPT/OT /PM&R prnwill monitor Gastroesop hageal reflux disease without esophagitis 324819004 K21.9 omeprazole 40 mg bidwill monitor Hypothyroidism 56676694 E03.8 levothyrox ine 225 mcg dailywill monitor [id number] NELDA MANSFIELD [address] [address] 09/03/2023 09:01:19 09/08/2023 15:59:59 Dry skin dermatitis 424379449 L85.3 see hpireports intermitte nt itchiness at timesfluid s encouraged Apply moisturize r to skin BIDhydorco rtisone cream TID prn 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 not appreciate d on examwarm salt water rinses QID prngood oral hygiene encourageb arcos teeth after mealschlor hexidine mouth wash qd and HS Toothache 21551389 K08.8 9 [id number] Samina Wilburn MD [address] [address] 09/23/2023 08:31:39 09/29/2023 10:26:59 Mixed anxiety and depressive disorder 685530786 F41.8 bupropion SR 150 mg dailymirta zapine 7.5 mg at hswill monitor Chronic pain 32414407 G8 9.29 diclofenac gel 1% to shoulders daily in eveningfen tanyl patch 50 mcg q72 hLidocaine patch to right shoulder and neck dailyAPAP 1000 mg tidtramado l 25 mg bidtizanid ine 2 mg bidprednis one 10 mg dailyPT/OT /PM&R prnwill monitor Atrial fibrillation 4943 6004 I48.0 apixaban 2.5 mg bidwill monitor Type 2 russel betes mellitus 90845173 E11.9 insulin aspart per sliding scalewill monitor Hypothyroidism 77417155 E03.8 levothyrox ine 225 mcg dailywill monitor Gastroesop hageal reflux disease without esophagitis 703363221 K21.9 omeprazole 40 mg bidwill monitor Edema 169797580 R60.0 furosemide 40 mg dailymetol azone 2.5 mg daily on T, Th, Sawill monitor Chronic dermatitis 66547 007 L20.89 d/c compressio n stockingst riamcinolo ne cream bidelevate d legswill monitor [id number] NELDA MANSFIELD [address] [address] 09/24/2023 08:15:25 10/01/2023 11:35:02 Fall 2596422 W19.XXXA see hpiPT/OT eval and tx per facility protocolmi nimize fall risknursin g to educate pt on making sure wheelchair is in lock position and front wheels are facing forward before getting up out of chair. Contusion 312315409 T14. 8XXA Patient hit her right almanza against bed frame when she fell forwardnot ed with mild tenderness on eliquismon itor right almanza bruise for healing [id number] NELDA MANSFIELD [address] [address] 10/13/2023 10:07:38 10/15/2023 15:15:36 Neuropathy 751172121 G62.9 bilateral lower extremity calf with tingling pain and tenderness she is not experience any pain relief with current pain medication spatient agrees to try gabapentin times one dose 100mg she will update nursing if she experience relief. Fatigue 52643733 R53.83 appears tirediron studies, tsh, t4, bmp and cbc, vit D and Vit B levels orderedwil l r/o UTI as well. Type 2 russel betes mellitus 96495790 E11.9 currently on lispro SSC will adjust coveragere cently added lantus 10 units10/12 increased lantus to 15 units Hypothyroidism 04452509 E03.8 levothyrox ine 225 mcg dailyord TSH, T4 for 10/13 [id number] NELDA MANSFIELD [address] [address] 10/19/2023 13:21:25 10/22/2023 12:31:39 Vitamin D deficiency 58888033 E55.9 VIt D level 22start cholecacif telly 1000 unit dailyreche ck Vitamin D level in 3-4 months Neuropathy 329290022 G62 .9 today she tells me that she has a postive effect with gabapentin and would like to continue, she has not had any pain.will scheduled gabapentin 100 mg BID Q12 Type 2 russel betes mellitus 84306254 E11.9 currently on lispro SSC will adjust coveragere cently added lantus 10 units/19 increased lantus to 15 units325: FS have improved Hypothyroidism 97857684 E03.8 levothyrox ine 225 mcg dailyord TSH, T4 for 10/13 Pending Dry skin dermatitis 2600 74484 L85.3 posterior calf noted with red patchy areas that are dry and flakyrefus ed rx cream recommende rosa prefer and has been using -goldbond creamuses her own with good effect per patient.wi monitor. [id number] NELDA MANSFIELD [address] [address] 10/30/2023 21:18:42 11/02/2023 15:19:50 Type 2 diabetes mellitus 37648347 E11.9 continue lispro SSCcontinu e lantus 15 unitsmonit or FS TID Hypothyroidism 29763945 E03.8 levothyrox ine decreased to 175 mcgTSH 0.1 T4 normal rangerepea t labs in 6 weeks Abdominal pain 88363397 R10.9 see hpicontinu e zofran prn for nauseaplan robin upcoming EGD. [id number] NELDA MANSFIELD [address] [address] 11/04/2023 10:45:41 11/16/2023 16:04:21 Type 2 diabetes mellitus 70946993 E11.9 continue lispro SSCcontinu e lantus 15 unitsmonit or FS TID Hypothyroidism 90724138 E03.8 levothyrox ine decreased to 175 mcgTSH 0.1 T4 normal rangerepea t labs in 6 weeks Abdominal pain 11800837 R10.9 see hpicontinu e zofran prn for nauseaEGD unremarkab le Urinary tr act infectious disease 03802293 N39.0 10/21: postive UAstart levofloxac in 250 mg for 5 daysstart probiotic 1 tab bid for 10 daysincrea se oral hydration. [id number] NELDA MANSFIELD [address] [address] 11/19/2023 10:42:12 11/27/2023 15:22:30 Type 2 diabetes mellitus 99279241 E11.9 continue lispro SSCcontinu e lantus 15 unitsmonit or FS TID Hypothyroidism 42680757 E03.8 levothyrox ine decreased to 175 mcgTSH 0.1 T4 normal rangerepea t labs in 6 weeks Abdominal pain 33597814 R10.9 see hpicontinu e zofran prn for nauseaEGD unremarkab le Urinary tr act infectious disease 48240277 N39.0 10/21: postive UAstart levofloxac in 250 mg for 5 daysstart probiotic 1 tab bid for 10 daysincrea se oral hydration. Mixed anxi ety and depressive disorder 686372418 F41.8 bupropion SR 150 mg dailymirta zapine 7.5 mg at hswill monitor Chronic pain 34701923 G8 9.29 diclofenac gel 1% to shoulders daily in eveningfen tanyl patch 50 mcg q72 hLidocaine patch to right shoulder and neck dailyAPAP 1000 mg tidtramado l 25 mg bidtizanid ine 4 mg bidprednis one 10 mg dailyPT/OT /PM&R prnwill monitor Atrial fibrillation 4943 6004 I48.0 continue apixaban 2.5 mg bid Gastroesop hageal reflux disease without esophagitis 526486807 K21.9 omeprazole 40 mg bidcontinu e zofran 4 mg q6 prn Edema 735114817 R60.0 continue furosemide 40 mg dailyconti nue metolazone 2.5 mg daily on , , Eczema 26910575 L30.9 triamcinol one 0.1 % cream BID Dyspnea 987397436 R06.00 continue albuterol inhaler prn for shortness of breath Osteoarthritis 072802843 M15.0 lidocaine patch right shoulder.f entanyl 50 mcg patch q72 hrAPAP 1000 mg tidtramado l 25 mg bid prnglucosa mine 500 mg tid Chronic neck pain 567873 2724 107 M54.2 continue gabapentin 100 mg BID Neuropathy 717738391 G62 .9 continue gabapentin 100 mg BID. 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 [id number] NELDA MANSFIELD [address] [place] [address] [place] [address] 11/26/2023 18:58:29 12/01/2023 10:07:02 Pain of left heel 6101484168 458187 M79.672 skin prep to bilateral heels BIDoff load heels on pillow when in bedmonitor for worsening sx.Risk factor discussed diabetes ,immobilit y, age [id number] NELDA MANSFIELD [facility] [place] [address] [place] [address] [place] [address] 12/14/2023 08:12:26 12/17/2023 13:25:50 Eczema 46536634 L30.9 bilateral lower extremitie s rash with scattered patches dry and redhx chronic edema, there is potential for weeping/oo zingtriamc inolone 0.1 % cream BIDmoistur izes legs daily Pain of right heel 27179 96071 555285 M79.671 right heel red and boggywill add skin prep BIDoffload heels when in bedwear socks with shoes Neuropathy 408807011 G62 .9 reports increasing bilateral leg painwill increase gabapentin to 200 mg BID and re assess for inprovemen t. [id number] NELDA MANSFIELD KARE[facility] [place] [address] [place] [address] [place] [address] 01/12/2024 12:10:02 01/13/2024 16:55:18 Easy bruising 002744259 R58 reddish mid upper chest bruising, skin intactshe is noted with scattered bruising on shoulder as well.she takes eliquis and prednisone , diuretic dailywill continue to monitor.wi ll check iron studies and VIT D on next lab day. Hypothyroidism 99028951 E03.8 continue levothyrox ine 175 mcgTSH now 1.74contin ue to monitor. [id number] Ana Damon MD [address] [place] [address] 02/01/2024 21:46:09 02/17/2024 11:18:25 Chronic pain 16670327 G89.29 Remains at baseline.C ontinue fentanyl patch 50 mcg q 72 hrs, salonpas patch to right shoulder qd, APAP 1000 mg TID, tramadol 25 mg BID, tizanidine 2 mg BID, and prednisone 10 mg qd.Continu e rehab as able.Monit or sxs. Mixed anxi ety and depressive disorder 300080214 F41.8 Mood good tonight.Co ntinue bupropion SR 150 mg qd and mirtazapin e 7.5 mg qhsMonitor mood.Psych follows Atrial fibrillation 4943 6004 I48.0 Rate remains in good control on no rate controllin g meds.Leonora nue eliquis 2.5 mg BID for AC.Monitor HR and bleeding risk. Type 2 russel betes mellitus 53339136 E11.9 Last HgA1C 7.6 in 03/2022.Sug ars in adequate control on diet control with occ. SSI.Monito r fingerstic ks TID, due for recheck of HgA1C, forgot to order. Gastroesop hageal reflux disease without esophagitis 284032511 K21.9 No current sxs.Contin ue omeprazole 40 mg BID.Monito r sxs Hypothyroidism 93061981 E03.8 TSH WNL.Contin ue levothyrox ine 225 mcg qdMonitor TSH yearly. Edema 862556808 R60.0 Marked tonight.Co ntinue furosemide 40 mg qd and metolazone 2.5 mg qd on , , SaMonitor sxs. Eczema 09095570 L30.9 Much improved.C ontinue triamcinol one 0.1 % cream BID and house moisturize r qdMonitor Neuropathy 931033727 G62 .89 Gabapentin was increased to 200 mg BID on 12/14/23Som e improvemen t since then.Leonora nue other pain meds as above also.Monit or. [id number] MIKIE SCALES [place] [address] [place] [address], [place] [address] 02/18/2024 11:02:37 02/20/2024 09:33:35 Edema 315444561 R60.0 Suspecting more may be going on, [...] nFurther work up as indicated Chronic pain 06819654 G8 9.29 Remains at baseline.C ontinue fentanyl patch 50 mcg q 72 hrs, salonpas patch to right shoulder qd, APAP 1000 mg TID, tramadol 25 mg BID, tizanidine 2 mg BID, and prednisone 10 mg qd.Continu e rehab as able.Monit or sxs. Mixed anxi ety and depressive disorder 924351909 F41.8 Mood goodContin ue bupropion SR 150 mg qd and mirtazapin e 7.5 mg qhsMonitor mood.Psych follows Atrial fibrillation 4943 6004 I48.0 Rate remains in good control on no rate controllin g meds.Leonora nue eliquis 2.5 mg BID for AC.Monitor HR and bleeding risk. Type 2 russel betes mellitus 60493649 E11.9 Last HgA1C 7.6 in 03/2022.Sug ars in adequate control on diet control with occ. SSI.Monito r fingerstic ks TID, due for recheck of HgA1C, forgot to order. Gastroesop hageal reflux disease without esophagitis 395002103 K21.9 No current sxs.Contin ue omeprazole 40 mg BID.Monito r sxs Hypothyroidism 85541024 E03.8 TSH WNL.Contin ue levothyrox ine 225 mcg qdMonitor TSH yearly. Eczema 42232384 L30.9 Much improved.C ontinue triamcinol one 0.1 % cream BID and house moisturize r qdMonitor Neuropathy 659515236 G62 .89 Gabapentin was increased to 200 mg BID on 12/14/23Som e improvemen t since then.Leonora nue other pain meds as above also.Monit or. Candidiasis of mouth 797 31928 B37.0 Aranda plaque on tongue.Voi ce hoarse, ? if also esophageal Nystatin Swish and swallow 5 ml qid x 30 daysMainta in oral hygeine, brush tongue Dental caries 19338844 K 02.9 Planning for teeth # 29 and 31 extraction s.Will hold clearance for now until fluid balance figured out.Will hold basaglar insulin the night before procedureW ill hold eliquis the day before and the day of procedureD oes not appear abx. proph. is warrantedC ardiac risk currently low for dental extraction s. Hypokalemia 77764523 E87 .6 K 3.1 on labs 02/16/24Pla n as above [id number] NELDA MANSFIELD [address] [place] [address] rd [place] [address] 02/23/2024 11:06:51 02/24/2024 15:45:14 Edema 834067405 R60.[address] xray did not show [...] restrictio nFurther work up as indicated Hypokalemia 04635704 E87 .6 02/21:Impro thomas 3.4continu e kcl 30 meq daily. Chronic pain 68257914 G8 9.29 Remains at baseline.C ontinue fentanyl patch 50 mcg q 72 hrs, salonpas patch to right shoulder qd, APAP 1000 mg TID, tramadol 25 mg BID, tizanidine 2 mg BID, and prednisone 10 mg qd.Continu e rehab as able.Monit or sxs. Mixed anxi ety and depressive disorder 475976747 F41.8 Mood goodContin ue bupropion SR 150 mg qd and mirtazapin e 7.5 mg qhsMonitor mood.Psych follows Atrial fibrillation 4943 6004 I48.0 Rate remains in good control on no rate controllin g meds.Leonora nue eliquis 2.5 mg BID for AC.Monitor HR and bleeding risk. Type 2 russel betes mellitus 76129606 E11.9 Last HgA1C 7.6 in 03/2022.Sug ars in adequate control on diet control with occ. SSI.Monito r fingerstic ks TID, due for recheck of HgA1C, forgot to order. Gastroesop hageal reflux disease without esophagitis 353957547 K21.9 No current sxs.Contin ue omeprazole 40 mg BID.Monito r sxs Hypothyroidism 97866791 E03.8 TSH WNL.Contin ue levothyrox ine 225 mcg qdMonitor TSH yearly. Eczema 00232397 L30.9 Much improved.C ontinue triamcinol one 0.1 % cream BID and house moisturize r qdMonitor Neuropathy 210708555 G62 .89 Gabapentin was increased to 200 mg BID on 12/14/23Som e improvemen t since then.Leonora nue other pain meds as above also.Monit or. Pneumonia 492745215 J18. 9 02/17: chest xray showed bilateral [...] rage fluid hydration. Vitamin D deficiency 347 56266 E55.9 12/06:Vit D level 20.4 - this is lower than previous levelwas taking cholecalci ferol 1000 unit daily -will increases to 50,000 unit weekly on thursday.patricia parkinson recheck in 2 months. [id number] BRYAN BERNARDO, [facility] [address] [place] [address] [place] [address] 02/25/2024 10:46:10 02/29/2024 16:18:54 Edema 985965069 R60.[address] xray did not show [...] restrictio nFurther work up as indicated Hypokalemia 10428299 E87 .6 02/21:Impro thomas 3.4continu e kcl 30 meq daily. Chronic pain 68580805 G8 9.29 Remains at baseline.C ontinue fentanyl patch 50 mcg q 72 hrs, salonpas patch to right shoulder qd, APAP 1000 mg TID, tramadol 25 mg BID, tizanidine 2 mg BID, and prednisone 10 mg qd.Continu e rehab as able.Monit or sxs. Mixed anxi ety and depressive disorder 933630825 F41.8 Mood goodContin ue bupropion SR 150 mg qd and mirtazapin e 7.5 mg qhsMonitor mood.Psych follows Atrial fibrillation 4943 6004 I48.0 Rate remains in good control on no rate controllin g meds.Leonora nue eliquis 2.5 mg BID for AC.Monitor HR and bleeding risk. Type 2 russel betes mellitus 81659793 E11.9 Last HgA1C 7.6 in 03/2022.Sug ars in adequate control on diet control with occ. SSI.Monito r fingerstic ks TID, due for recheck of HgA1C, forgot to order. Gastroesop hageal reflux disease without esophagitis 931268724 K21.9 No current sxs.Contin ue omeprazole 40 mg BID.Monito r sxs Hypothyroidism 89238817 E03.8 TSH WNL.Contin ue levothyrox ine 225 mcg qdMonitor TSH yearly. Eczema 90938701 L30.9 Much improved.C ontinue triamcinol one 0.1 % cream BID and house moisturize r qdMonitor Neuropathy 341907860 G62 .89 Gabapentin 200 mg BIDreports bilateral lower extremity pain- noted with swelling >in LLE than RLE-awaiti ng ultrasound to r/o DVT. due to be done today at 3 pmPt willing to try diclofenac gel for lower extremity to see it helps with pain. Pneumonia 272553501 J18. 9 02/17: chest xray showed bilateral [...] rage fluid hydration. Vitamin D deficiency 347 17429 E55.9 12/06:Vit D level 20.4 - this is lower than previous levelwas taking cholecalci ferol 1000 unit daily -will increases to 50,000 unit weekly on thursday.patricia parkinson recheck in 2 months. [id number] NELDA MANSFIELD [address] [place] [address] 02/29/2024 18:11:58 03/01/2024 13:10:29 Pneumonia 717563236 J18.9 breathing is easy and unlabored: chest xray showed bilateral airspace opacities. No pleural effusion.c ontinue augmentin 500 mg TID until 03/04 and azithromyc in 500 mg for 1 day and then continue 250 mg for 4 days .check VS q shiftencou rage fluid hydration. [id number] NELDA MANSFIELD [address] [place] [address] 03/16/2024 10:26:05 03/18/2024 10:30:33 Pneumonia 153925200 J18.9 completed abxbreathi ng is easy and unlabored Mixed anxi ety and depressive disorder 026610534 F41.8 Mood is stable.Con tinue:bupr opion SR 150 mg qdmirtazap ine 7.5 mg qhs-03/14 seen by psych with recommenda tion for GDR for mirtazapin e now ordered at 5 mg hs. patient in agreement. Monitor mood. [id number] NELDA MANSFIELD [address] [place] [address] 03/23/2024 11:08:46 03/31/2024 14:26:29 Edema 921216250 R60.0 Marked tonight.Co ntinue furosemide 40 mg qd and metolazone 2.5 mg qd on T, Th, SaMonitor sxs. Chronic pain 08897763 G8 9.29 Remains at baseline.C ontinue fentanyl patch 50 mcg q 72 hrs, salonpas patch to right shoulder qd, APAP 1000 mg TID, tramadol 25 mg BID, tizanidine 2 mg BID, and prednisone 10 mg qd.Continu e rehab as able.Monit or sxs. Mixed anxi ety and depressive disorder 083757515 F41.8 Continue bupropion SR 150 mg qd and mirtazapin e 7.5 mg qhsMonitor mood.Psych follows Atrial fibrillation 4943 6004 I48.0 Continue eliquis 2.5 mg BID for AC.Monitor HR and bleeding risk. Type 2 russel betes mellitus 52338811 E11.9 continue lantus 15 units at HSmonitor FS Gastroesop hageal reflux disease without esophagitis 062114488 K21.9 No current sxs.Contin ue omeprazole 40 mg BID.Monito r sxs Hypothyroidism 14841433 E03.8 TSH WNL.Contin ue levothyrox ine 175 mcgMonitor TSH yearly. Eczema 59971912 L30.9 Much improved.C ontinue triamcinol one 0.1 % cream BID and house moisturize r qdMonitor Neuropathy 457063283 G62 .89 Gabapentin 200 mg BIDMonitor . Hypokalemia 60297144 E87 .6 continue kcl 30 meq daily. Vitamin D deficiency 347 51528 E55.9 12/06 Vit D level 20.4 - this is lower than previous levelwas taking cholecalci ferol 1000 unit daily-incr eased to 50,000 unit weekly on thursday.patricia parkinson recheck vit d level on next lab day. [id number] NELDA MANSFIELD [address] [place] [address] 03/29/2024 10:37:33 03/31/2024 14:35:20 Mixed anxiety and depressive disorder 799650198 F41.8 Mood is stable todayConti nue:buprop ion SR 150 mg qdwith trial gdr off mirtazapin e 7.5 mg qhs-decrea sed to 3.75 mgMonitor mood, patient will report unwanted side effects of gdr such as increased anxiety, restlessne ss, insomnia [id number] NELDA MANSFIELD [address] [place] [address] 04/26/2024 14:44:48 05/02/2024 13:49:37 Cellulitis of left lower limb 0242633775 7109675 L03.116 Met sepsis criteria due to 101.5 F, WBC 19.2recent ly started on Keflex for left lower extremity cellulitis on 04/15.CT chest without any focal findings of pneumonia. s/p iv van and zosyndisch arge on take Augmentin till 04/24/24 Extravasat ion of intravenous contrast medium 086218369 T80.818A In acute care found to have left arm swelling tx conservati vely with warm compress and elevation. Atrial fibrillation 4943 6004 I48.0 Continue eliquis 2.5 mg BID for AC.Monitor HR and bleeding risk. Hypothyroidism 25540832 E03.8 TSH WNL.Contin ue levothyrox ine 175 mcgMonitor TSH yearly. Gastroesop hageal reflux disease without esophagitis 223782841 K21.9 No current sxs.Contin ue omeprazole 40 mg BID.Monito r sxs Osteoarthritis 757809760 M15.0 lidocaine patch right shoulder.f entanyl 50 mcg patch q72 hrAPAP 1000 mg tidtramado l 25 mg bid prnglucosa mine 500 mg tid Type 2 russel betes mellitus 72621862 E11.9 [facility] [id number] NELDA M[place] [address] [place] [address] 05/02/2024 09:59:17 05/03/2024 11:50:42 Cellulitis of left lower limb 6418019959 4696217 L03.116 05/02: see hpiLLE edema and pain, [...] 04/24/24 Extravasat ion of intravenous contrast medium 773016640 T80.818A In acute care found to have left arm swelling tx conservati vely with warm compress and elevation. Atrial fibrillation 4943 6004 I48.0 Continue eliquis 2.5 mg BID for AC.Monitor HR and bleeding risk.repor table sx reviewed. Hypothyroidism 05360716 E03.8 TSH WNL.Contin ue levothyrox ine 175 mcgMonitor TSH yearly. Gastroesop hageal reflux disease without esophagitis 918363826 K21.9 No current sxs.Contin ue omeprazole 40 mg BID.Monito r sxs Osteoarthritis 363447387 M15.0 fentanyl 50 mcg patch q72 hrAPAP 1000 mg tidtramado l 25 mg bid prnglucosa mine 500 mg tid Type 2 russel betes mellitus 86101267 E11.9 continue lantus 15 units at [facility] [place] [id number] BRYAN BERNARDO [address] [address] 05/05/2024 10:15:43 05/10/2024 15:49:53 Cellulitis of left lower limb 1222796134 2884410 L03.116 05/05: Ultrasound results reviewed, negative for [...] reviewed. Gastroesop hageal reflux disease without esophagitis 515155653 K21.9 stableNo current sxs.Contin ue omeprazole 40 mg BID.Monito r sxs Osteoarthritis 948547320 M15.0 stablefent anyl 50 mcg patch q72 hrAPAP 1000 mg tidtramado l 25 mg bid prn Type 2 russel betes mellitus 83897022 E11.9 continue lantus 15 units at [facility] [place] [id number] NELDA MANSFIELD [address] [address] 05/09/2024 11:51:06 05/10/2024 16:10:25 Cellulitis of left lower limb 1856760638 2453403 L03.116 resolved Atrial fibrillation 4943 6004 I48.0 stable without sx.Continu e eliquis 2.5 mg BID for AC.Monitor HR and bleeding risk.repor table sx reviewed. Gastroesop hageal reflux disease without esophagitis 409867517 K21.9 stableNo current sxs.Contin ue omeprazole 40 mg BID.Monito r sxs Osteoarthritis 530337588 M15.0 stablefent anyl 50 mcg patch q72 hrAPAP 1000 mg tidtramado l 25 mg bid Type 2 russel betes mellitus 71024535 E11.9 continue lantus 15 units at HSmonitor FS- mainly under 200sshe is without hypo/hyper glucose sx. Edema 876271611 R60.0 BLE decreased edema note, she is wearing wilma wrapsconti nue torsemide 20 mg daily and metolazone as ord. [id number] NELDA MANSFIELD [address] [place] [address] 05/12/2024 11:47:54 05/13/2024 11:46:56 Atrial fibrillation 47603963 I48.0 stable without sx.Continu e eliquis 2.5 mg BID for AC.Monitor HR and bleeding risk.repor table sx reviewed. Gastroesop hageal reflux disease without esophagitis 558977296 K21.9 stableNo current sxs.Contin ue omeprazole 40 mg BID.Monito r sxs Osteoarthritis 551462498 M15.0 stablefent anyl 50 mcg patch q72 hrAPAP 1000 mg tidtramado l 25 mg bid Type 2 russel betes mellitus 48728799 E11.9 continue lantus 15 units at HScheck FS- mainly under 200sshe is without hypo/hyper glucose sx. Edema 877301808 R60.0 BLE decreased edema note, she is wearing wilma wrapsconti nue torsemide 20 mg daily and metolazone as ord. Spinal roni nosis of lumbar region 52679450 M48.062 fentanyl patch 50 mcgprednis one 10 mg daily - taper to start 05/16/24de creasing by 1 mg per week. [id number] NELDA MANSFIELD [address] [place] [address] 05/16/2024 08:25:38 05/18/2024 09:23:51 Atrial fibrillation 62047313 I48.0 stable without sx.Continu e eliquis 2.5 mg BID for AC.Monitor HR and bleeding risk.repor table sx reviewed. Gastroesop hageal reflux disease without esophagitis 659405354 K21.9 stableNo current sxs.Contin ue omeprazole 40 mg BID.Monito r sxs Osteoarthritis 328638599 M15.0 stablefent anyl 50 mcg patch q72 hrAPAP 1000 mg tidtramado l 25 mg bid Type 2 russel betes mellitus 42930456 E11.9 continue lantus 15 units at [facility] FS- mainly under 200sshe is without hypo/hyper glucose sx. Edema 518595844 R60.0 BLE decreased edema note, she is wearing wilma wrapsconti nue torsemide 20 mg daily and metolazone as ord. Spinal roni nosis of lumbar region 31871560 M48.062 fentanyl patch 50 mcgprednis one 10 mg daily - taper to start 05/16/24de creasing by 1 mg per week. Itching of skin 78327721 0 L29.9 left shoulder is without redness or rashencour aged to apply lotion dailywill start claritin 10 mg daily. [id number] NELDA MANSFIELD [address] [place] [address] 05/19/2024 11:11:15 05/23/2024 15:12:03 Atrial fibrillation 46769974 I48.0 stable without sx.Continu e eliquis 2.5 mg BID for AC.Monitor HR and bleeding risk.repor table sx reviewed. Gastroesop hageal reflux disease without esophagitis 074875732 K21.9 stableNo current sxs.Contin ue omeprazole 40 mg BID.Monito r sxs Osteoarthritis 346823001 M15.0 stablefent anyl 50 mcg patch q72 hrAPAP 1000 mg tidtramado l 25 mg bid Type 2 russel betes mellitus 95995645 E11.9 continue lantus 15 units at [facility] FS- mainly under 200sshe is without hypo/hyper glucose sx. Edema 390379127 R60.0 BLE decreased edema note, she is wearing wilma wrapsconti nue torsemide 20 mg daily and metolazone as ord. Spinal roni nosis of lumbar region 84658144 M48.062 fentanyl patch 50 mcgprednis one 10 mg daily - taper to start 05/16/24de creasing by 1 mg per week. Itching of skin 28773714 0 L29.9 left shoulder is without redness or rashencour aged to apply lotion dailywill start claritin 10 mg daily. [id number] NELDA MANSFIELD [address] [address] 05/23/2024 07:53:51 05/24/2024 13:52:57 Atrial fibrillation 07780854 I48.0 stable without sx.Continu e eliquis 2.5 mg BID for AC.Monitor HR and bleeding risk.repor table sx reviewed. Gastroesop hageal reflux disease without esophagitis 397088654 K21.9 stableNo current sxs.Contin ue omeprazole 40 mg BID.Monito r sxs Osteoarthritis 952186262 M15.0 stablefent anyl 50 mcg patch q72 hrAPAP 1000 mg tidtramado l 25 mg bid Type 2 russel betes mellitus 52378819 E11.9 continue lantus 15 units at [facility]- mainly under 200sshe is without hypo/hyper glucose sx. Edema 024642483 R60.0 BLE decreased edema note, she is wearing wilma wrapsconti nue torsemide 20 mg daily and metolazone as ord. Spinal roni nosis of lumbar region 21989256 M48.062 fentanyl patch 50 mcgprednis one 10 mg daily - taper to start 05/16/24de creasing by 1 mg per week. Itching of skin 41610138 0 L29.9 left shoulder is without redness or rashencour aged to apply lotion dailywill start claritin 10 mg daily. [id number] NELDA MANSFIELD [address] [address] 05/27/2024 07:54:05 05/30/2024 13:39:41 Atrial fibrillation 49601944 I48.0 stable without sx.Continu e eliquis 2.5 mg BID for AC.Monitor HR and bleeding risk.repor table sx reviewed. Gastroesop hageal reflux disease without esophagitis 771629282 K21.9 stableNo current sxs.Contin ue omeprazole 40 mg BID.Monito r sxs Osteoarthritis 977770403 M15.0 stablefent anyl 50 mcg patch q72 hrAPAP 1000 mg tidtramado l 25 mg bid Type 2 russel betes mellitus 93094977 E11.9 continue lantus 15 units at [facility] FS- mainly under 200sshe is without hypo/hyper glucose sxwill need updated A1c as we taper off prednisone Edema 678273683 R60.0 improved with compressio n stockings. continue torsemide 20 mg daily and metolazone as ord. Spinal roni nosis of lumbar region 74957342 M48.062 fentanyl patch 50 mcgprednis one 10 mg daily - tapering off 1 mg per weekdecrea sing by 1 mg per week. Itching of skin 32670676 0 L29.9 stableleft shoulder is without redness or rashencour aged to apply lotion dailywill start claritin 10 mg daily. [id number] NELDA MANSFIELD [address] [place] [address] 06/02/2024 09:27:55 06/06/2024 12:53:38 Atrial fibrillation 24025992 I48.0 stable without sx.Continu e eliquis 2.5 mg BID for AC.Monitor HR and bleeding risk.repor table sx reviewed. Gastroesop hageal reflux disease without esophagitis 404381604 K21.9 reports hypogastri c non radiating pain+ nausea no vomitinNo current sxs.Contin ue omeprazole 40 mg BID.Monito r sxs Osteoarthritis 237643029 M15.0 stablefent anyl 50 mcg patch q72 hrAPAP 1000 mg tidtramado l 25 mg bid Type 2 russel betes mellitus 72597375 E11.9 stablecont inue lantus 15 units at [facility] FS- mainly under 200sshe is without hypo/hyper glucose sx Edema 266706201 R60.0 improved with compressio n stockings. continue torsemide 20 mg daily and metolazone as ord. Blister of lower leg without infection 02004597 S80.822A initially fluid filled with clear liquidnow burst-anais ent recently tx for cellulitis , I prefer wound to be tx with and antispetic nursing ord to cleanse with NS 0r warm soap and water dialy, paint with betadine with non adhesive dressing and kerlix. [id number] BRYAN BERNARDO, [address] [address] 06/06/2024 08:41:07 06/07/2024 11:48:57 Atrial fibrillation 14222868 I48.0 stable without sx.Continu e eliquis 2.5 mg BID for AC.Monitor HR and bleeding risk.repor table sx reviewed. Gastroesop hageal reflux disease without esophagitis 387847487 K21.9 No current sxs.Contin ue omeprazole 40 mg BID.Monito r sxs Osteoarthritis 227171154 M15.0 stablefent anyl 50 mcg patch q72 hrAPAP 1000 mg tidtramado l 25 mg bid Type 2 russel betes mellitus 82395089 E11.9 stablecont inue lantus 15 units at [facility]- mainly under 200sshe is without hypo/hyper glucose sx Edema 031353813 R60.0 continue torsemide 20 mg daily and metolazone as ord. Blister of lower leg without infection 66942292 S80.822A initially fluid filled with clear liquidnow burst-anais ent recently tx for cellulitis , I prefer wound to be tx with and antispetic as well.nursi ng ord to cleanse with NS 0r warm soap and water dialy, paint with betadine cover with xeroform dressing and kerlix. [id number] BRYAN BERNARDO [address] [address] 06/16/2024 11:11:20 06/21/2024 11:07:01 Edema 960989530 R60.0 continue torsemide 20 mg daily and metolazone as ord. Blister of lower leg without infection 94905983 S80.822A initially fluid filled with clear liquidnow [...] recs to continue current tx ords. Dysuria 42714809 R30.0 send urine for UA with C&Swater encouraged to flush out toxins Fatigue 19737097 R53.83 recheck bmp, cbc, TSH,iron , ammonia and Vit B & D levels on 06/17 [id number] NELDA MANSFIELD [address] [place] [address] 06/27/2024 12:04:26 06/30/2024 11:21:08 Cellulitis of right lower limb [id number] 1158773 L03.115 2/2 diabetes and decreased skin integrity from venous stasis and chronic prednisone usetx with IV ancef in acute carecomple cassie po abx keflex on 06/24follo wed by Wound MD Venous ins ufficiency of lower limb 743015513 I87.2 chronic BLE edema/RLE acute DVT /right almanza erupted skin blisterdis cussed with nursing, continue eliquis and wound tx with xeroform Acute deep venous thrombosis of femoral vein 2130376127 01520 I82.419 non occlusive/ RLEon eliquis 5 mg BID Chronic heart failure 48 868119 I50.9 acute on chronic/el evated BNP tx with IV lasixCXR showed interstiti al markings but difficult to interpret due to underlying fibrosisco ntinue torsemide and metolazone monitor labs Edema 090820191 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 [id number] NELDA MANSFIELD [address] [place] [address] 06/30/2024 08:36:09 07/01/2024 12:09:02 Cellulitis of right lower limb [id number] 1508020 L03.115 completed abxdenies any pain, per nsg no erythema or warmth Venous ins ufficiency of lower limb 366313462 I87.2 chronic BLE edema/RLE acute DVT /right almanza erupted skin blisterdis cussed with nursing, continue eliquis and wound tx Acute deep venous thrombosis of femoral vein 4772731928 23145 I82.419 non occlusive/ RLEon eliquis 5 mg BID Chronic heart failure 48 571524 I50.9 acute on chronic/el evated BNP tx with IV lasixCXR showed interstiti al markings but difficult to interpret due to underlying fibrosisco ntinue torsemide and metolazone baseline crackles with hx of pulm. 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 Wound 558676656 T14.90 XA see pi2/2 to erupted blisterfol lowed by wound MD with recent changes to oil emulsion.shelbie kelly provided why tx was changedwil l resume previous tx order of NS and betadine per patient request and have wound re evaldiscus sed with nursing [id number] NELDA MANSFIELD [address] [place] [address] 07/04/2024 10:17:37 07/05/2024 14:29:23 Venous insufficiency of lower limb 792210936 I87.2 stablechro gavin BLE edema/RLE acute DVT /right almanza erupted skin blisterdis cussed with nursing, continue eliquis and wound tx Acute deep venous thrombosis of femoral vein 2237740746 02220 I82.419 non occlusive/ RLEon eliquis 5 mg BID Chronic heart failure 48 878960 I50.9 acute on chronic/el evated BNP tx with IV lasixCXR showed interstiti al markings but difficult to interpret due to underlying fibrosisco ntinue torsemide and metolazone baseline crackles with hx of pulm. fibrosismo nitor labs Edema 199686873 R60.0 chronic/st abl;e with no increase on exam todayconsi jeff referral to lymphedema clinic - she often c/o pain, she is at increase risk for recurrent infection. Wound 923775099 T14.90 XA see pi2/2 to erupted blisterfol lowed by wound with recent changes to oil emulsion.shelbie kelly provided why tx was changedwil l resume previous tx order of NS and betadine per patient request and have wound re evaldiscus sed with nursing [id number] NELDA MANSFIELD [place] [address] [place] [address] 07/07/2024 08:16:53 07/08/2024 13:27:39 Venous insufficiency of lower limb 050541602 I87.2 stablechro gavin BLE edema/RLE acute DVT /right almanza erupted skin blisterdis cussed with nursing, continue eliquis and wound txseen by wound MD with new order changes made in pcc. Acute deep venous thrombosis of femoral vein 7023708778 25878 I82.419 non occlusive/ RLEon eliquis 5 mg BID Chronic heart failure 48 933372 I50.9 continue torsemide and metolazone baseline crackles with hx of pulm. fibrosismo nitor labs Edema 575419020 R60.0 chronic/st ableconsid er referral to lymphedema clinic - she often c/o pain, she is at increase risk for recurrent infection. [id number] NELDA MANSFIELD [address] [address] 07/11/2024 10:40:35 07/12/2024 12:07:39 Venous insufficiency of lower limb 540982690 I87.2 stablechro gavin BLE edema/RLE acute DVT /right almanza erupted skin blisterdis cussed with nursing, continue eliquis and wound txfollowed by wound /continu e current tx orders. Acute deep venous thrombosis of femoral vein 1080067442 86384 I82.419 non occlusive/ RLEon eliquis 5 mg BID Chronic heart failure 48 253673 I50.9 baseline BLE edema, otherwise no worsening edema notedconti nue torsemide and metolazone baseline crackles with hx of pulm. fibrosismo nitor labs Edema 237588037 R60.0 chronic/st ableconsid er referral to lymphedema clinic - she often c/o pain, she is at increase risk for recurrent infection. 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 Mood is stable todayConti nue:buprop ion [...] Member ID Guarantor Name 07/07/2024 2 [place] [facility] [place] Rodneyell [id number] [place] Lissa 07/07/2024 2 [place] 2 [place]IC[place] SUPPLE[place]) [id number] [place] Aguilaronnell [id number] [place] Aguilaronnell 07/07/2024 1 [place] B[place]: [employer] [place] Aguilaronnell [id number] [place] Lissa Notes Date Note Type Note [...] and history of PE NELDA MANSFIELD [address] [facility], [address], [place], [address], [email or web address] 07/07/2024 15:22:09 07/11/2024 text/html ROS as [...] and history of PE NELDA MANSFIELD [address] , [address], [place], [address], [email or web address] 07/11/2024 14:31:09 07/15/2024 text/html ROS as noted in the HPI This is an 84 yr old women seen for acute rounding visit, she is reporting dysuria for a few days and states sx are similar to past UTI complaints. she denies any frequency or urgency, she has been afebrile. NELDA MANSFIELD [address] , [address], [place], [address], [email or web address] 07/15/2024 12:35:05 07/18/2024 text/html ROS as noted in the HPI This is an 84 yr old women seen for acute rounding visit for follow for dysuria. Recent UA negative for infection, pt updated on results, she now reports that she is no longer experiencing sx.she encouraged to increase fluid preferably water. NELDA MANSFIELD [address] , [address], [place], [address], [email or web address] 07/18/2024 12:28:32 07/21/2024 text/html ROS as noted in the HPI This is an 84 yr old women seen for acute rounding visit. She has been at baseline in NAD, today she is doing ok, there are no acute concerns. 07/21/24 Tested negative for covid NELDA MANSFIELD [address], [address], [place], [address], [email or web address] 07/21/2024 15:46:48 OBGyn Episode No OBEpisode recorded.
--- OUTSIDE RECORDS SUMMARY | 2025-05-25 06:04 | XMS_ITS | Data Portability ---
Author Organization [place] [facility] Address [address] [place] [address] Care Team Providers Care Diaper Machine Tender Name Role Phone ARIANNA SOW Primary Care Provider [facility] OTHER Assessment Encounter Date Assessment [...] I have accessed patient records on the [employer] Information Exchange. This information was pertinent in [...] after care [facility]. Overview/History : 81 yo [...] Neuro: No focal deficits, patient GCS- 456, CN s II-XII grossly normal DDx considered, but [...] pertinent in my medical decision making today. [email or web address] Not available 04/24/2021 16:06:59 Plan of Treatment Reminders Order Date Submit Date Provider Last Modified By Organization Details Last Modified Time Details Appointments None recorded. Lab BMP + ionized calcium, serum or plasma 2020 [facility], [address], [place], [address], 14:20:55 BMP + ionized calcium, serum or plasma 2020 MEGAN [facility] (Centralized Electronic Ordering - All Locations), Patient Can Go To The Location Of Their Choice, [id number] 20:59:40 Referral None recorded. Procedures None recorded. Surgeries None recorded. 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 Reason for portabilit y is immunocomp romised. 2020 [facility] ([facility]), [address], [place], [address], 19:01:25 XR, chest, 2 view - right upper lobe (anterior) crackles on auscultati on 2020 [facility] ([facility] [address], [place], [address], 1 11:03:08 XR, chest, 2 view - REASON FOR PORTABILIT Y: FRAIL/FALL RISK 2019 020 [facility] ([facility] [employer]), [address] [facility], [place], [address], 0 10:28:17 Medication Orders azithromyc in 250 mg tablet 2019 020 [facility], [address], [place], [id number], 1 14:39:29 azithromyc in 250 mg tablet 2019 020 [email or web address] [facility] #62006, [address], [place], [id number], 1 14:39:29 ProAir HFA 90 mcg/actuat ion aerosol inhaler 2019 020 INTERFACE [facility] #94819, [address], [place], [id number], 0 15:38:53 Tessalon Perles 100 mg capsule 2019 020 [email or web address] [facility] #30702, [address], [place], [id number], 1 14:43:23 Patient TargetsNo targets recorded. Patient Instructions Encounter Date Encounter Id Patient Instructions Last Modified By Organization Details Last Modified Time 08/17/2019 [id number] Acute Bronchitis Instructions BASIC INFORMATION Acute bronchitis [...] Tylenol can injure your liver. Cough medicine: Eepb-dne-vytbstx (OTC) medicine helps loosen mucus in your [...] also ask your pharmacist for a good gvwg-nse-tylyzed probiotic to take while you are on [...] to smoke around you. Please call the [employer] Quit Line at to help in smoking [...] condition between 8am-10pm, please call [facility] at [phone] to help navigate your care. [email or web address] Not available 08/17/2019 15:38:34 04/24/2021 [id number] [facility] yo [facility] We cannot always find the exact cause of your symptoms during your initial visit. Please follow up with your primary care provider or specialist within 2-3 days to be rechecked or seek medical attention if your symptoms do not go away or get worse. If you develop any new or worsening symptoms and need after hours care, please go to nearest ER and/or call 911. If you have additional concerns or develop a change in your condition between 8am-10pm, please call [facility] at [phone] to help navigate your care. Not available 04/24/2021 15:28:43 Reason for Referral None Reported. Results Created Date Observation Date Name Description Value Unit Range Abnormal Flag Note LastModifiedBy Organization Detail LastModifiedTime 04/24/20 21 04/24/2021 BMP + IONIZ ED CALCI UM, SERUM OR PLASM A glu 155 mg/dL 70-105 Not Available [facility] [address] [place], [address], 04/25/2021 20:59:40 04/24/20 21 04/24/2021 BMP + IONIZ ED CALCI UM, SERUM OR PLASM A BUN 17 mg/dL 8-26 Not Available [facility] [address] [place], [address], 04/25/2021 20:59:40 04/24/20 21 04/24/2021 BMP + IONIZ ED CALCI UM, SERUM OR PLASM A crea 1.0 mg/dL 0.6-1. 3 Not Available [address], [address], 04/25/2021 20:59:40 04/24/20 21 04/24/2021 BMP + IONIZ ED CALCI UM, SERUM OR PLASM A Na 134 mmol/ L 138-14 6 Not Available [address], [address], 04/25/2021 20:59:40 04/24/20 21 04/24/2021 BMP + IONIZ ED CALCI UM, SERUM OR PLASM A K 4.2 mmol/ L 3.5-4. 9 Not Available [address], [address], 04/25/2021 20:59:40 04/24/20 21 04/24/2021 BMP + IONIZ ED CALCI UM, SERUM OR PLASM A cL 96 mmol/ L 98-109 Not Available [address], [address], 04/25/2021 20:59:40 04/24/20 21 04/24/2021 BMP + IONIZ ED CALCI UM, SERUM OR PLASM A TCO2 26 mmol/ L 24-29 Not Available [address], [address], 04/25/2021 20:59:40 04/24/20 21 04/24/2021 BMP + IONIZ ED CALCI UM, SERUM OR PLASM A angap 18 mmol/ L 10-20 Not Available [address], [address], 04/25/2021 20:59:40 04/24/20 21 04/24/2021 BMP + IONIZ ED CALCI UM, SERUM OR PLASM A ica 1.15 mmol/ L 1.12-1 .32 Not Available [place] [address] [place], [address], 04/25/2021 20:59:40 04/24/20 21 04/24/2021 BMP + IONIZ ED CALCI UM, SERUM OR PLASM A HCT 35 %pcv 38-51 Not Available Den [facility] [address] [place], [address], 04/25/2021 20:59:40 04/24/20 21 04/24/2021 BMP + IONIZ ED CALCI UM, SERUM OR PLASM A Hb 11.9 g/dL 12-17 Not Available Den [facility] [address] [place], [address], 04/25/2021 20:59:40 08/18/19 20 08/18/2019 XR, chest [...] ONICAL LY SIGNED BY NAVID HAWKINS M.D. 10:20: 20 AM EST. XRAY CHEST 2 [...] nyuzych [facility] ([employer]) [address], [place], [address], 08/18/2019 15:46:56 04/24/20 wound care* No observ ation record ed. Not Available 2020 14:52:25 04/26/20 XR, chest , 2 view No observ ation record ed. [address] StreetAd[address] Client [facility] ([facility] [employer]) [address], [place], [address], 04/28/2021 08:58:02 04/30/20 US, duple x, venou s, lower extre mity No observ ation record ed. [place] [id number] [facility] ([facility]) [address], [place], [address], 05/01/2021 15:37:59 Result Notes Documentation Provider Name and Address Organization Details Recorded Time Xr, Chest, 2 View : XRAY CHEST 2 VIEW FINDINGS: The heart is normal in size and configuration. The mediastinum is normal without adenopathy. The lung aranda are clear without mass, infiltrate, congestion, or effusion. Bony structures are unremarkable without acute fracture or destructive lesions. CONCLUSION: No acute cardiopulmonary disease seen. ELECTRONICALLY SIGNED BY NAVID LAMAR M.D. 08/18/2019 10:20:20 AM EST. XRAY CHEST 2 VIEW Results: The heart is normal in size and configuration. The mediastinum is normal without adenopathy. The lung aranda are clear without mass, infiltrate, congestion, or effusion. Bony structures are unremarkable without acute fracture or destructive lesions. Conclusion: No acute cardiopulmonary disease seen. Electronically signed by NAVID LAMAR M.D. 08/18/2019 10:20:20 AM EST. [place] EVANS [address], [place], [address], [place] - [facility] 08/18/2019 15:46:56 Procedures Surgical History Date Name Laterality Status Provider Name and Address Organization Details Recorded Time 04/24/20 Venipuncture - DH completed CHANCE PEACOCK NP [address], [place], [address], [place] [facility] 04/27/2021 08:58:29 Imaging Results None recorded. Procedure Notes None recorded. Medical Equipment None Reported. Allergies Allergen ID Allergen Name Allergen Category Reaction Reaction Severity Criticality Documentation Date Start Date Code Code System Note Provider Name and Address Organization Details Recorded Time 10268 oxycodone medicatio n Not available Not available Not available 08/17/2019 7804 RxNorm AMY SANCHEZ, PA [address], [place], [address], [place] [facility] 0 15:26:39 68573 morphine medicatio n Not available Not available Not available 08/17/2019 7052 RxNorm AMY SANCHEZ PA [address], [place], [address], [place] [facility] 0 15:26:46 66353 amitripty line medicatio n Not available Not available Not available 08/17/2019 704 RxNorm AMY SANCHEZHARPREET [address], [place], [address], [place] [facility] 0 15:26:57 82499 Phenergan medicatio n Not available Not available Not available 08/17/2019 97878 8 RxNorm AMY SANCHEZ [place] [address], [place], [address], [place] [facility] 0 15:27:24 15931 Demerol medicatio n Not available Not available Not available 08/17/2019 04804 1 RxNorm AMY SANCHEZ PA [address], [place], [address], [place] [facility] 0 [...] 5 mg-acetam inophen 325 mg tablet TK 07/28 T PO BID PRN 04/24 completed Not [...] Pulse oximetry Heart rate Body temperature Systolic And Diastolic Provider Name and Address Organization Details Last Updated DateTime 0 15 /min 98 % 98 % 78 /min 98.7 [degF] 132/74 mm[Hg] Not Available [facility] 0 15:31:57 Date Recorded Respiratory rate Oxygen saturation Oxygen saturation in Arterial blood by Pulse oximetry Heart rate Body temperature Systolic And Diastolic Provider Name and Address Organization Details Last Updated DateTime 1 22 /min 95 % 95 % 69 /min 98.8 [degF] 118/70 mm[Hg] Not Available [facility] 1 14:44:35 Social History Question Answer Notes LastModified by Organizat ion Details LastModified Time Tobacco Smoking Status Former Smoker [place] EVANS [address], [place], [address], [place] [facility] 08/17/2019 15:29:56 Do You Have An Advance Directive? No nyuzpsychiatric Information not available 08/17/2019 What Is Your Code Status? Full Code [facility] Information not available 08/17/2019 Within The Past [...] Feel Unsteady When Standing Or Walking? Yes wyuzych Information not available 08/17/2019 We Know That How And When People Interact With Friends And Family Can Be Very Different From Person To Person. How Often Do You Have The Opportunity To See Or Talk To People That You Care About And Feel Close To? (Ex: Talking To Friends On The Phone Or Visiting Friends Or Family Or Going To Congregational Or Club Meetings) Choose Not To Answer This Question [facility] Information not available 08/17/2019 We Know From Many Of Our Patients That Covering All Of Their Costs Can Be Difficult At Times. This Can Cause Stress And Impact Health. In The Past Year, Have You Been Unable To Get Any Of The Following When It Was Really Needed? No [facility] Information not available 08/17/2019 What Is Your Housing Situation Today? [facility] Information not available 08/17/2019 Would You Like Help Connecting To Resources? None Information not available 08/17/2019 Marital Status nyivis Informat[employer] n not available 08/17/2019 Sex: Unknown Functional Status None recorded. Mental Status None recorded. Family History Nothing Reported Notes:patient can't recall Medical History Condition Response Diabetes Y Coronary Artery Disease N Cancer N Stroke N Depression Y COPD N Asthma Y High Cholesterol Y Pulmonary Embolism N Hypertension Y Kidney Disease N Gynecological HistoryNo gynecological history recorded. Obstetrics History GPAL:G 0 P 0 0 0 0 Past Encounters Encounter ID Performer Location Encounter Start Date Encounter Closed Date Diagnosis/Indication Diagnosis SNOMED-CT Code Diagnosis ICD10 Code Diagnosis IMO Codes Diagnosis Note [id number] [facility] [facility] [facility] [address] [place] [address] 08/17/2019 15:23:04 08/18/2019 17:16:39 Cough 23176020 R05 Bronchopneumonia 4265361 07 J18.0 [id number] CHANCE PEACOCK NP [facility] [address] [place] [address] 04/24/2021 14:37:31 04/30/2021 14:55:23 Respiratory crackles 52996085 R09.89 Unilateral leg edema 162 871858 R60.0 Chronic hyponatremia 503 07305 E87.1 Deep venou s thrombosis of lower extremity 640510236 I82.409 known DVT right gastrocnem ius vein [...] ID Guarantor Name 08/17/2019 1 MEDICARE B-[place]: [facility] Griselda Alcaraz [id number] Griselda Alcaraz 08/17/2019 1 *SELF PAY* Griselda Alcaraz [id number] Griselda Alcaraz 04/30/2021 2 [facility]: ([place]MN[place] Griselda Alcaraz [id number] Griselda Alcaraz 04/24/2021 1 MEDICARE B-[place]: [facility] Griselda Alcaraz [id number] Griselda Alcaraz Notes Date Note Type Note Provider Name and Address Organization Details Recorded Time 08/17/2019 text/html Mrs. Alcaraz is a 79 yo female new to and [...] medications for it. [place] [address] [place], [address], [place] [facility] 08/17/2019 16:06:03 04/24/2021 text/html General HPI Template - DHReported by Patient 81 yo female who is known to [...] nausea, vomiting or diarrhea. CHANCE PEACOCK NP [address] [place] [address] [place], [address], [place] [facility] 04/27/2021 08:58:36 OBGyn Episode No OBEpisode recorded.
[2025-05-25 06:40] LABS: Alanine Aminotransferase 19 U/L (0-31); Albumin Level 3.5 g/dL (3.5-5.0); Alkaline Phosphatase 69 U/L (39-117); Anion Gap 18 (12-20); Aspartate Amino Transferase 30 U/L (5-31); Blood Urea Nitrogen 33 mg/dL (9-16); Calcium 9.4 mg/dL (8.4-10.2); Carbon Dioxide 31 mmol/L (22-29); Chloride 97 mmol/L (96-108); Estimated Glomerular Filt Rate 30; Potassium 2.6 mmol/L (3.3-5.1); Sodium 143 mmol/L (135-145); Total Protein 6.8 g/dL (6.5-8.0)
[2025-05-25 06:45] LABS: Hematocrit 36.0 % (37.0-47.0); Hemoglobin 11.3 g/dl (12.0-16.0); Imm Gran Abs Auto 0.08 X10*3/uL (0.00-0.03); Imm Gran Pct Auto 0.8 % (0.0-0.4); Lymphocytes Absolute Auto 1.8 X10*3/uL (1.2-4.9); MANUAL DIFF FLAG SCAN; Mean Corpuscular HGB Conc 31.4 g/dl (31.0-35.0); Mean Corpuscular Hemoglobin 32.0 pg (27.0-33.0); Mean Corpuscular Volume 102.0 fL (80.0-98.0); NRBC Abs Auto 0.000 X10*3/uL (0.0-0.012); NRBC Pct Auto 0.0 /100WBC (0.0-0.2); Platelet Count 200 X10*3/uL (160-400); Red Blood Count 3.53 X10*6/uL (4.20-5.50); SCAN SMEAR FLAG 1; White Blood Count 10.6 X10*3/uL (4.8-10.8)
[2025-05-25 07:00] LABS: Procalcitonin 0.10 ng/mL; Thyroid Stimulating Hormone 1.96 uIU/mL (0.32-4.0)
[2025-05-26 07:19] LABS: Appearance Urine Clear; Glucose Urine UA Negative (Negative); PH 5.5 (5.0-9.0); Specific Gravity - Urine 1.010 (1.005-1.025)
== END 2025-05-25 06:01 | disposition home or self-care (01) ==
LOC: HO.MMNH3L 06:00
PROVIDERS: Physician Assistant Medical; Visit Provider Student in an Organized Health Care Education/Training Program
DX: E11.9 Type 2 diabetes mellitus without complications (principal); K86.1 Other chronic pancreatitis; J84.10 Pulmonary fibrosis, unspecified
CPT/HCPCS: 36415; 80053; 81003; 83036; 84145; 84443; 85025; 87086

== ENCOUNTER 2025-05-26 06:10 | Outpatient (REF) | payer MEDICARE, MEDICAID, SELFPAY ==
[2025-05-26 07:02] LABS: Anion Gap 16 (12-20); Blood Urea Nitrogen 37 mg/dL (9-16); Calcium 9.1 mg/dL (8.4-10.2); Carbon Dioxide 29 mmol/L (22-29); Chloride 104 mmol/L (96-108); Estimated Glomerular Filt Rate 27; Potassium 4.9 mmol/L (3.3-5.1); Sodium 144 mmol/L (135-145)
== END 2025-05-26 06:11 | disposition home or self-care (01) ==
LOC: HO.MMNH3L 06:10
PROVIDERS: Visit Provider Physician Assistant Medical
DX: K86.1 Other chronic pancreatitis (principal)
CPT/HCPCS: 36415; 80048

== ENCOUNTER 2025-05-29 06:03 | Outpatient (REF) | payer MEDICARE, MEDICAID, SELFPAY ==
--- OUTSIDE RECORDS SUMMARY | 2025-05-29 06:06 | XMS_ITS | Data Portability ---
Author Organization [place] - [facility] Address [address] [place] [id number] Care Team Providers Care Revenue Field Agent Name Role Phone ARIANNA SOW Primary Care Provider [facility] OTHER Assessment Encounter Date Assessment [...] I have accessed patient records on the [place] [employer]. This information was pertinent in [...] after care of this patient according to [facility]'s infection prevention protocols. Overview/History : 80 [...] pofodile Spr [facility], [address], [place], [address], 14:20:55 BMP + ionized calcium, serum or plasma 2020 MEGAN [facility] (Centralized Electronic Ordering - All Locations), Patient Can Go To The Location Of Their Choice, [id number] 20:59:40 Referral None recorded. Procedures None recorded. Surgeries None recorded. 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 Reason for portabilit y is immunocomp romised. 2020 [facility] ([facility] [address], [place], [address], 19:01:25 XR, chest, 2 view - right upper lobe (anterior) crackles on auscultati on 2020 [facility] ([facility] [address], [place], [address], 1 11:03:08 XR, chest, 2 view - REASON FOR PORTABILIT Y: FRAIL/FALL RISK 2019 020 [facility] ([facility] [employer]), [address] [address], [place], [address], 0 10:28:17 Medication Orders azithromyc in 250 mg tablet 2019 020 [email or web address] [id number], [address], [place], [id number], 1 14:39:29 azithromyc in 250 mg tablet 2019 020 [email or web address] [facility] #[id number], [address], [place], [phone], 1 14:39:29 ProAir HFA 90 mcg/actuat ion aerosol inhaler 2019 020 INTERFACE [facility] #69129, [address], [place], [phone], 0 15:38:53 Tessalon Perles 100 mg capsule 2019 020 [email or web address] [facility] #[id number], [address], [place], [phone], 1 14:43:23 Patient TargetsNo targets recorded. Patient Instructions Encounter Date Encounter Id Patient Instructions Last Modified By Organization Details Last Modified Time 08/17/2019 [id number] Acute Bronchitis Instructions BASIC INFORMATION Acute bronchitis [...] Tylenol can injure your liver. Cough medicine: Szee-day-eicsoyh (OTC) medicine helps loosen mucus in your [...] also ask your pharmacist for a good tprs-tyn-frufwpn probiotic to take while you are on [...] to smoke around you. Please call the [employer] Quit Line at to help in smoking [...] condition between 8am-10pm, please call [facility] at [phone] to help navigate your care. [email or web address] Not available 08/17/2019 15:38:34 04/24/2021 [id number] [facility] yo ur [facility]. We cannot always find the exact [...] condition between 8am-10pm, please call [facility] at [phone] to help navigate your care. Not available 04/24/2021 15:28:43 Reason for Referral None Reported. Results Created Date Observation Date Name Description Value Unit Range Abnormal Flag Note LastModifiedBy Organization Detail LastModifiedTime 04/24/20 21 04/24/2021 BMP + IONIZ ED CALCI UM, SERUM OR PLASM A glu 155 mg/dL 70-105 Not Available [facility] [address] [place], [address], 04/25/2021 20:59:40 04/24/20 21 04/24/2021 BMP + IONIZ ED CALCI UM, SERUM OR PLASM A BUN 17 mg/dL 8-26 Not Available [facility] [address] [place], [address], 04/25/2021 20:59:40 04/24/20 21 04/24/2021 BMP + IONIZ ED CALCI UM, SERUM OR PLASM A crea 1.0 mg/dL 0.6-1. 3 Not Available [address], [address], 04/25/2021 20:59:40 04/24/20 21 04/24/2021 BMP + IONIZ ED CALCI UM, SERUM OR PLASM A Na 134 mmol/ L 138-14 6 Not Available [address], [address], 04/25/2021 20:59:40 04/24/20 21 04/24/2021 BMP + IONIZ ED CALCI UM, SERUM OR PLASM A K 4.2 mmol/ L 3.5-4. 9 Not Available [address], [address], 04/25/2021 20:59:40 04/24/20 21 04/24/2021 BMP + IONIZ ED CALCI UM, SERUM OR PLASM A cL 96 mmol/ L 98-109 Not Available [address], [address], 04/25/2021 20:59:40 04/24/20 21 04/24/2021 BMP + IONIZ ED CALCI UM, SERUM OR PLASM A TCO2 26 mmol/ L 24-29 Not Available [address], [address], 04/25/2021 20:59:40 04/24/20 21 04/24/2021 BMP + IONIZ ED CALCI UM, SERUM OR PLASM A angap 18 mmol/ L 10-20 Not Available [address], [address], 04/25/2021 20:59:40 04/24/20 21 04/24/2021 BMP + IONIZ ED CALCI UM, SERUM OR PLASM A ica 1.15 mmol/ L 1.12-1 .32 Not Available [place] [address] [place], [address], 04/25/2021 20:59:40 04/24/20 21 04/24/2021 BMP + IONIZ ED CALCI UM, SERUM OR PLASM A HCT 35 %pcv 38-51 Not Available Den [facility] [address] [place], [address], 04/25/2021 20:59:40 04/24/20 21 04/24/2021 BMP + IONIZ ED CALCI UM, SERUM OR PLASM A Hb 11.9 g/dL 12-17 Not Available Den [facility] [address] [place], [address], 04/25/2021 20:59:40 08/18/19 20 08/18/2019 XR, chest [...] ([facility]) [address], [place], [address], 08/18/2019 15:46:56 04/24/20 wound care* No observ ation record ed. [email or web address] Not Available 2020 14:52:25 04/26/20 XR, chest , 2 view No observ ation record ed. [address] ([facility]) [address], [place], [address], 04/28/2021 08:58:02 04/30/20 US, duple x, venou s, lower extre mity No observ ation record ed. [place] [id number] [facility] ([facility]) [address], [place], [address], 05/01/2021 15:37:59 Result Notes Documentation Provider Name [...] AM EST. [place] [address], [place], [address], [place] - [facility] 08/18/2019 15:46:56 Procedures Surgical History Date Name Laterality Status Provider Name and Address Organization Details Recorded Time 04/24/20 Venipuncture - DH completed CHANCE PEACOCK NP [address], [place], [address], [place] [facility] 04/27/2021 08:58:29 Imaging Results None recorded. Procedure Notes None recorded. Medical Equipment None Reported. Allergies Allergen ID Allergen Name Allergen Category Reaction Reaction Severity Criticality Documentation Date Start Date Code Code System Note Provider Name and Address Organization Details Recorded Time 96365 oxycodone medicatio n Not available Not available Not available 08/17/2019 7804 RxNorm AMY SANCHEZ, PA [address], [place], [address], [place] [facility] 0 15:26:39 47571 morphine medicatio n Not available Not available Not available 08/17/2019 7052 RxNorm AMY SANCHEZ PA [address], [place], [address], [place] [facility] 0 15:26:46 28849 amitripty line medicatio n Not available Not available Not available 08/17/2019 704 RxNorm AMY SANCHEZHARPREET [address], [place], [address], [place] [facility] 0 15:26:57 61696 Phenergan medicatio n Not available Not available Not available 08/17/2019 78159 8 RxNorm AMY SANCHEZ [place] [address], [place], [address], [place] [facility] 0 15:27:24 57148 Demerol medicatio n Not available Not available Not available 08/17/2019 52254 1 RxNorm AMY SANCHEZ PA [address], [place], [address], [place] [facility] 0 [...] /min 98.7 [degF] 132/74 mm[Hg] Not Available [facility] 0 15:31:57 Date Recorded Respiratory rate Oxygen saturation Oxygen saturation in Arterial blood by Pulse oximetry Heart rate Body temperature Systolic And Diastolic Provider Name and Address Organization Details Last Updated DateTime 1 22 /min 95 % 95 % 69 /min 98.8 [degF] 118/70 mm[Hg] Not Available [facility] 1 14:44:35 Social History Question Answer Notes LastModified by Organizat ion Details LastModified Time Tobacco Smoking Status Former Smoker [place] [address], [place], [address], [place] [facility] 08/17/2019 15:29:56 Do You Have An Advance Directive? No [facility] not available 08/17/2019 What Is Your Code Status? Full Code [facility] Information not available 08/17/2019 Within The [...] Feel Unsteady When Standing Or Walking? Yes [email or web address] Information not available 08/17/2019 We Know That How And When People Interact With Friends And Family Can Be Very Different From Person To Person. How Often Do You Have The Opportunity To See Or Talk To People That You Care About And Feel Close To? (Ex: Talking To Friends On The Phone Or Visiting Friends Or Family Or Going To [employer] Or Club Meetings) Choose Not To Answer This Question [facility] Information not available 08/17/2019 We Know From Many Of Our Patients That Covering All Of Their Costs Can Be Difficult At Times. This Can Cause Stress And Impact Health. In The Past Year, Have You Been Unable To Get Any Of The Following When It Was Really Needed? No [facility] Information not available 08/17/2019 What Is Your Housing Situation Today? [facility] Information not available 08/17/2019 Would You Like [...] ICD10 Code Diagnosis IMO Codes Diagnosis Note [id number] [place] [facility] [address] [place] [address] 08/17/2019 15:23:04 08/18/2019 17:16:39 Cough 77696369 R05 Bronchopneumonia 6990292 07 J18.0 [id number] CHANCE PEACOCK NP [facility] [address] [place] [address] 04/24/2021 14:37:31 04/30/2021 14:55:23 Respiratory crackles 37222168 R09.89 Unilateral leg edema 162 275286 R60.0 Chronic hyponatremia 503 84013 E87.1 Deep venou s thrombosis of lower extremity 740361611 I82.409 known DVT right gastrocnem ius vein [...] ID Guarantor Name 08/17/2019 1 MEDICARE B-[place]: [facility] Griselda Alcaraz [id number] Griselda Alcaraz 08/17/2019 1 *SELF PAY* Griselda Alcaraz [id number] Griselda Alcaraz 04/30/2021 2 [facility]: (INDEMNITY) Griselda Alcaraz [id number] Griselda Alcaraz 04/24/2021 1 MEDICARE B-[place]: [facility] Griselda Alcaraz [id number] Griselda Alcaraz Notes Date Note Type [...] for it. [place] [address] [place], [address], [place] [facility] 08/17/2019 16:06:03 04/24/2021 text/html [...] nausea, vomiting or diarrhea. CHANCE PEACOCK NP [address] [place] [address] [place], [address], [place] [facility] 04/27/2021 08:58:36 OBGyn Episode No OBEpisode recorded.
[2025-05-29 06:07] LABS: MANUAL DIFF FLAG NO
--- OUTSIDE RECORDS SUMMARY | 2025-05-29 06:07 | XMS_ITS | Data Portability ---
Author Organization [facility], Main Office Address [address], [address] [place] [address] Care Team Providers Care 3D Technologist Name Role Phone KAREEM HAYNES 3RD FLOOR [...] Address Organization Details Recorded Time Severe pain 14365253 Active 2021 back pain BRYANNA URBANO NP [address] [facility], [address], [place], [address], [employer] [facility] 13:15:21 Adult failure to thrive syndrome 206533052 Active 2021 BRYANNA URBANO, MIKIE [address] [facility], [address], [place], [address], [facility] 2 13:15:35 Fall Active 2021 BRYANNA URBANO NP [address], [address], [place], [address], [facility] 2 13:15:44 Gastroes ophageal reflux disease without esophagi tis 245580636 Active 2021 BRYANNA URBANO NP [address] [facility], [address], [place], [address], [facility] 2 13:16:01 Osteoart hritis 554560651 Active 2021 BRYANNA URBANO NP [address] [facility], [address], [place], [address], [facility] 2 13:16:10 Mixed anxiety and depressi ve disorder 789918582 Active 2021 BRYANNA URBANO NP [address] [facility], [address], [place], [address], [facility] 3 10:40:32 Hypothyr oidism 91118593 Active 2021 BRYANNA URBANO NP [address] [facility], [address], [place], [address], [facility] 2 13:16:28 Osteopor osis 80848772 Active 2021 BRYANNA URBANO NP [address], [address], [place], [address], [employer] [facility] 13:17:10 Atrial fibrilla tion 80370801 Active 2021 BRYANNA URBANO, MIKIE [address], [address], [place], [address], [facility] 2 14:21:30 Hyperlip idemia 71898260 Active 2021 BRYANNA VELAPIN, [employer]CRETE [employer]ER [address], [address], [place], [address], [facility] 2 14:21:52 Spinal stenosis of lumbar region 09890883 Active 2021 Ana Damon MD [address], [address], [place], [address], [facility] 2 19:13:30 Edema 008018611 Active 2021 BRYANNA YOLIE, [employer]CRETE RU[employer]ER [address], [address], [place], [address], [facility] 2 13:22:11 Hypokale doretha 24391920 Active 2021 Ana Damon MD [address], [address], [place], [address], [facility] 2 23:44:02 Pancreat itis 85210159 Active 2021 BRYANNA URBANO, CONCRETE RUBBER [address] [facility], [address], [place], [address], [facility] 2 14:58:02 Generali zed osteoart hritis 200790720 Active 2021 Ana Damon MD [address] [facility], [address], [place], [address], [facility] 2 14:42:49 Contusio n 909588080 Active 2021 right buttock BRYANNA YOLIE, [employer]CR[employer]ER [address] [facility], [address], [place], [address], [facility] 3 12:37:52 COVID-19 326879283 Active 2021 BRYANNA YOLIE, CONCRETE RUBBER [address], [address], [place], [address], [facility] 2 10:44:44 Dislocat ion of shoulder joint 936988893 Active 2022 Margarette Awad NP [address], [address], [place], [address], [facility] 3 11:28:04 Chronic neck pain 14674609841 07 Active 2022 Ana Damon MD [address], [address], [place], [address], [facility] 3 21:36:27 Nausea 943385849 Active 2022 Ana Damon MD [address], [address], [place], [address], [facility] 3 21:36:31 Type 2 diabetes mellitus 68955308 Active 2022 Ana Damon MD [address], [address], [place], [address], [facility] 3 20:16:36 Contusio n of face 196793738 Active 2022 BRYANNA URBANO NP [address], [address], [place], [address], [facility] 3 12:37:45 Urinary tract infectio us disease 97117965 Active 2023 NELDA MANSFIELD [address], [address], [place], [address], [facility] 4 14:59:19 Dyspnea 721105151 Active 2023 NELDA MANSFIELD [address], [address], [place], [address], [facility] 4 22:03:33 Neuropat hy 310927506 Active 2023 NELDA MANSFIELD [address], [address], [place], [address], [facility] 4 22:17:58 Constipa tion 71754125 Active 2023 NELDA MANSFIELD [address], [address], [place], [address], [facility] 4 22:22:39 Chronic pain 78371405 Active 2023 Ana Damon MD [address], [address], [place], [address], [facility] 4 10:49:48 Cellulit is 861252058 Active [address] [facility], [address], [place], [address], [facility] 4 09:09:15 Manav contreras 25665574 Completed 202306/06/2024 on predniso ne 10 mg daily NELDA MANSFIELD [address] [place] [address], [address], [place], [address], [facility] 4 15:48:25 Venous insuffic iency of lower limb 327687355 Active 2023 NELDA MANSFIELD [address] [place] [address], [address], [place], [address], [facility] 4 02:16:11 Chronic heart failure 70067628 Active 2023 NELDA MANSFIELD [address] [place] [address], [address], [place], [address], [facility] 4 02:24:16 Problem Notes None recorded. Medical Equipment None Reported. Allergies Allergen ID Allergen Name Allergen Category Reaction Reaction Severity Criticality Documentation Date Start Date Code Code System Note Provider Name and Address Organization Details Recorded Time 33593 amitripty line medicatio n Not available Not available Not available 09/25/2021 704 RxNorm BRYANNA MIKIE URBANO [address] [place] [address], [address], [place], [address], [facility] 2 13:14:24 70752 morphine medicatio n Not available Not available Not available 09/25/2021 7052 RxNorm BRYANNA YOLIE, MIKIE [address] [facility], [address], [place], [address], [facility] 2 13:14:30 71080 oxycodone medicatio n Not available Not available Not available 09/25/2021 7804 RxNorm BRYANNA YOLIE, MIKIE [address] [place] [address], [address], [place], [address], [facility] 2 13:14:37 14990 Demerol medicatio n Not available Not available Not available 09/25/2021 34524 1 RxNorm BRYANNA YOLIE, CONCRETE RUBBER [address], [place], [address], [facility] 2 13:14:42 97019 Phenergan medicatio n Not available Not available Not available 09/25/2021 08960 8 RxNorm BRYANNA GRIPPIN, CONCRETE RUBBER [address], [address], [place], [address], [facility] 2 13:14:50 16475 lactose food,medi cation Not available Not available Not available 09/25/2021 6211 RxNorm BRYANNA YOLIE, CONCRETE RUBBER [address] [facility], [address], [place], [address], [facility] 2 13:14:59 Medications Name Sig Start [...] DateTime 07/07/2024 162.56 cm NELDA MANSFIELD [address] [facility], [address], [place], [address], [facility] 07/07/2024 08:58:12 Date Recorded Body height Provider Name an d Address Organization Details Last Updated DateTime 07/11/2024 162.56 cm NELDA MANSFIELD [address] [facility], [address], [place], [address], [facility] 07/11/2024 14:23:34 Date Recorded Body height Heart rate Oxygen saturation Oxygen saturation in Arterial blood by Pulse oximetry Provider Name and Address Organization Details Last Updated DateTime 07/21/2024 162.56 cm 78 /min 95 % 95 % NELDA MANSFIELD [address] [facility], [address], [place], [address] , [employer] 07/21/2024 15:42:40 Social History Question Answer Notes LastModified by Organizat ion Details LastModified Time Tobacco Smoking Status Former Smoker can't remember when she quit Ana Damon MD [address] [facility], [address], [place], [place], [address], [employer] 09/26/2021 19:09:18 Do You Have An Advance Directive? Yes Information not available 09/26/2021 What Is Your Code Status? DNR/DNI Information not available 09/25/2021 Where Do You Live? [facility]. Was Living With Son, But He Is Not Home During The Day. Information not available 05/29/2023 Legal Guardian? 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 Invoked Information not available 09/26/2021 What [...] adjuvanted, quadrivalent, PF 05/21/2022 completed Dena maza, [facility] 08/17/2023 10:49:52 Influenza, adjuvanted, quadrivalent, PF 03/04/2023 completed Dena maza [facility] 08/17/2023 10:50:06 Past Encounters Encounter ID Performer Location Encounter Start Date Encounter Closed Date Diagnosis/Indication Diagnosis SNOMED-CT Code Diagnosis ICD10 Code Diagnosis IMO Codes Diagnosis Note [id number] BRYANNA URBANO NP [address] [address] 09/25/2021 09:13:56 09/30/2021 13:45:49 Severe pain 87994564 R52 fentanyl patch 50 mcgdilaudi d 1 mg q4hr prnprednis one 10 mg dailyrepos ition prnhospice consult and admission Osteoporosis 69324428 M8 1.0 methotrexa te 2.5 dronate 70 thursdaypred nisone 10 mg daily Osteoarthritis 670488995 M19.90 dilaudid 1 mg q4 hr prnfentany l 50 mcg patch Mixed anxi ety and depressive disorder 862648542 F41.8 wellbutrin xl 150 mg bid Hypothyroidism 46245427 E03.9 levothyrox ine 200 mcg daily Gastroesop hageal reflux disease without esophagitis 823169120 K21.9 omeprazole 40 mg daily Adult fail ure to thrive syndrome 746213885 R62.7 encourage po intake Fall W19.XXXA PT OT eval and treatfall precaution sfrequent safety checks Atrial fibrillation 4943 6004 I48.91 eliquis 5 mg bidlasix 40 mg daily Hyperlipidemia 65428200 E78.5 atorvastat in 40 mg daily [id number] MD KAREEM Whitaker [place] [address] [place] [address] 09/26/2021 15:54:36 09/30/2021 14:03:56 Osteoporosis 86937439 M81.0 Will d/c alendronat e Osteoarthritis 761187927 M15.0 Unclear what she is on MTX for, if it's OA or pulmonary fibrosis.C ontinue methotrexa te 2.5 mg weekly.Chelsi n control as above. Mixed anxi ety and depressive disorder 829499215 F41.8 Continue wellbutrin xl 150 mg BID.Monito r mood. Hypothyroidism 29381796 E03.8 With elevated TSH, but nl FT4. Will leave dosing as is for now, bayron. since pt is transition ing to hospice.Co ntinue levothyrox ine 200 mcg qd.No further labs. Gastroesop hageal reflux disease without esophagitis 484969308 K21.9 Continue omeprazole 40 mg qd.Monitor sxs/ Adult fail ure to thrive syndrome 197984919 R62.7 Continue oral supplement s as able. Fall W19.XXXA Unable to participat e in rehab.Cont inue fall precaution s.Monitor for safety. Atrial fibrillation 4943 6004 I48.0 Rate in good control on no rate controllin g meds.Leonora nue eliquis 5 mg BID for AC.Monitor HR and bleeding risk Hyperlipidemia 72997883 E78.49 Will d/c atorvastat inNo further labs Spinal roni nosis of lumbar region 35672291 M48.062 With continued distress, unclear how much is pain and how much is behavioral .Will start roxanol 5 mg q 4 hrs scheduled and q 1 hr prn. Hold for oversedati on.Continu e fentanyl patch 50 mcg q 72 hrs and dilaudid 1 mg q 4 hrs prnContinu e prednisone 10 mg qd.Hospice consult pending. [id number] MIKIE DUONG [address] [place] [address] 09/27/2021 10:49:34 09/30/2021 14:31:05 Mixed anxiety and depressive disorder 064088116 F41.8 wellbutrin xl 150 mg bid-pm dose is 50 mg a week decrease until donethen remeron can be startedris perdal 0.5 mg bidAIMs 0 Adult fail ure to thrive syndrome 159553808 R62.7 encourage po intakereme sonal 7.5 mg [id number] MIKIE DUONG [address] [place] [address] 09/30/2021 12:53:54 10/04/2021 13:57:38 Mixed anxiety and depressive disorder 950032374 F41.8 wellbutrin xl 150 mg bid-pm dose is 100 mg decrease for 7 days then discontinu ishan remeron can be startedris perdal 0.5 mg bid-decrea sed to 0.25 mg am, 0.5 mg hsAIMs 0 Adult fail ure to thrive syndrome 597163258 R62.7 encourage po intakereme sonal 7.5 mg hs when hs wellbutrin finished Spinal roni nosis of lumbar region 73456228 M48.062 fentanyl patch 50 mcg q72 daysdilaud id 1 mg q4hr prnprednis on 10 mg daily [id number] Ana Damon MD [address] [address] 10/01/2021 19:18:36 10/04/2021 14:59:14 Spinal stenosis of lumbar region 67684542 M48.062 Continue fentanyl patch 50 mcg q 72 hrs and dilaudid 1 mg q 4 hrs prnContinu e prednisone 10 mg qd.Reconsi jeff hospice consult if pt. not able to tolerate med changes as below. Mixed anxi ety and depressive disorder 777992161 F41.8 Continue Wellbutrin 150 mg qAM and PM dose 100 mg until 10/08 then d/c pm doseStart mirtazapin e 7.5 mg qhs on 10/08Contin ue risperdal 0.25 mg qam and 0.5 mg qhsMonitor effect. Adult fail ure to thrive syndrome 036966378 R62.7 encourage po intakeStar t remeron 7.5 mg hs when hs wellbutrin finished as above. [id number] BRYANNA URBANO NP [address] [address] 10/03/2021 10:04:53 10/09/2021 15:41:28 Adult failure to thrive syndrome 173692619 R62.7 encourage po intakereme sonal 7.5 mg hs when hs wellbutrin finished 10/08 Mixed anxi ety and depressive disorder 716203767 F41.8 wellbutrin xl 150 mg bid-pm dose is 100 mg decrease for 7 days then discontinu e 10/08then remeron can be startedris perdal 0.5 mg bid-decrea sed to 0.25 mg am, 0.5 mg hsAIMs 0 Severe pain 97325941 R52 fentanyl patch 50 mcgdilaudi d 1 mg q4hr prn-d/c due to lack of useprednis one 10 mg dailyrepos ition prnhospice consult and admissionr oxanol was d/c due to morphine allergy [id number] BRYANNA URBANO NP [address] [address] 10/09/2021 10:18:53 10/14/2021 14:25:24 Mixed anxiety and depressive disorder 575486685 F41.8 wellbutrin xl 150 mg bid-pm dose is 100 mg decrease for 7 days then discontinu e 10/08then remeron can be startedris perdal 0.5 mg hs-am dose d/cAIMs 0 Adult fail ure to thrive syndrome 711284044 R62.7 encourage po intakereme sonal 7.5 mg hs when hs wellbutrin finished 10/08 Severe pain 73138613 R52 fentanyl patch 50 mcgdilaudi d 1 mg q4hr prn-d/c due to lack of useprednis one 10 mg dailyrepos ition prnhospice consult and admissionr oxanol was d/c due to morphine allergy [id number] BRYANNA URBANO NP [address] [address] 10/11/2021 10:22:56 10/14/2021 15:05:22 Mixed anxiety and depressive disorder 988351914 F41.8 wellbutrin xl 150 mg bid-pm dose is 100 mg decrease for 7 days then discontinu e 10/08then remeron can be startedris perdal 0.5 mg hs-am dose d/cAIMs 0 Adult fail ure to thrive syndrome 734440802 R62.7 encourage po intakereme sonal 7.5 mg hs when hs wellbutrin finished 10/08 Severe pain 59383074 R52 fentanyl patch 50 mcgdilaudi d 1 mg q4hr prn-d/c due to lack of useprednis one 10 mg dailyrepos ition prnhospice consult and admissionr oxanol was d/c due to morphine allergy [id number] BRYANNA URBANO NP [address] [address] 10/14/2021 12:20:18 10/16/2021 14:26:14 Severe pain 76420559 R52 fentanyl patch 50 mcgprednis one 10 mg dailyrepos ition prnroxanol was d/c due to morphine allergy Mixed anxi ety and depressive disorder 910325518 F41.8 wellbutrin xl 150 mgremeron 7.5 mg dailyrispe rdal 0.5 mg hs-am dose d/cAIMs 0 Fall W19.XXXA PT OT eval and treatfall precaution sfrequent safety checks [id number] BRYANNA URBANO NP [address] [address] 10/16/2021 13:18:48 10/23/2021 10:49:11 Adult failure to thrive syndrome 469855253 R62.7 encourage po intakereme sonal 7.5 mg hs when hs wellbutrin finished 10/08 Mixed anxi ety and depressive disorder 006827353 F41.8 wellbutrin xl 150 mgremeron 7.5 mg dailyrispe rdal 0.5 mg hs-am dose d/cAIMs 0 Severe pain 30721731 R52 fentanyl patch 50 mcgprednis one 10 mg dailyrepos ition prnroxanol was d/c due to morphine allergy Edema 285357804 R60.9 lasix 40 mg daily will increase to bid for 7 days [id number] NELDA Gardiner [address] [address] 10/18/2021 11:22:25 10/23/2021 11:24:28 Adult failure to thrive syndrome 579002688 R62.7 Appetite improveden courage po intakereme sonal 7.5 mg QHSMonitor weights Mixed anxi ety and depressive disorder 002454527 F41.8 wellbutrin xl 150 mgremeron 7.5 mg dailyrispe rdal 0.5 mg hsMonitor moodPsych eval prn Severe pain 29107886 R52 fentanyl patch 50 mcgprednis one 10 mg dailyBack pain now well controlled Monitor Edema 604905807 R60.9 Lasix 40 mg BIDACE wraps BLEElevate legs as toleratedM onitor [id number] BRYANNA URBANO NP [address] [address] 10/21/2021 10:50:08 10/23/2021 11:52:29 Edema 753352782 R60.9 lasix 40 mg bidmetolaz one 2.5 mg tues, thursace wraps Severe pain 69498130 R52 fentanyl patch 50 mcgprednis one 10 mg dailyrepos ition prnroxanol was d/c due to morphine allergy [id number] BRYANNA URBANO NP [address] [place] [address] 10/24/2021 10:43:36 10/29/2021 12:14:04 Edema 875475765 R60.9 lasix 40 mg bidmetolaz one 2.5 mg tues, thurs, add a dose sundayace wraps Adult fail ure to thrive syndrome 985096348 R62.7 encourage po intakereme sonal 7.5 mg hs Mixed anxi ety and depressive disorder 552016109 F41.8 wellbutrin xl 150 mgremeron 7.5 mg dailyrispe rdal 0.5 mg hs- decrease hs dose to 0.25 mgAIMs 0 [id number] BRYANNA URBANO NP [address] [place] [address] 10/30/2021 10:59:13 11/05/2021 10:01:44 Adult failure to thrive syndrome 916473690 R62.7 encourage po intakereme sonal 7.5 mg hs Mixed anxi ety and depressive disorder 773901521 F41.8 wellbutrin xl 150 mgremeron 7.5 mg dailyrispe rdal 0.25 mg- discontinu eAIMs 0 Severe pain 94694016 R52 fentanyl patch 50 mcgprednis one 10 mg dailyrepos ition prnroxanol was d/c due to morphine allergy [id number] Ana Damon MD [address] [address] 11/19/2021 18:25:18 11/25/2021 15:04:26 Adult failure to thrive syndrome 018882715 R62.7 Doing much better. Wt. has been stable.Say s her appetite is good.Leonora nue mirtazapin e 7.5 mg qhs.Monito r wts. Mixed anxi ety and depressive disorder 231056925 F41.8 Mood good today.Cont inue wellbutrin XL 150 mg qd and mirtazapin e 7.5 mg qhsMonitor mood.Consu lt psych prn Severe pain 54964327 R52 Under good control on fentanyl patch 50 mcg q 3 days, prednisone 10 mg qd, and APAP prnRestart ing PT this week.Monit ro Edema 308232489 R60.0 Continue lasix 40 mg BID and metolazone 2.5 mg 2x/wk on & .Cont inue wilma wraps daily.Carmela tor Hypokalemia 49101821 E87 .6 With borderline low K+ for awhile. Has never been on K+ supplement .Will recheck next week and if still low will add KCL 10 meq qd.Monitor [id number] MIKIE DUONG [address] [place] [address], [place] [address] 12/12/2021 10:09:42 12/17/2021 16:08:08 Adult failure to thrive syndrome 107097500 R62.7 Doing much better. Wt. has been stable.Say s her appetite is good.Leonora nue mirtazapin e 7.5 mg qhs.Monito r wts. Mixed anxi ety and depressive disorder 189967005 F41.8 Mood good today.well butrin XL 150 mg qd and mirtazapin e 7.5 mg qhsMonitor mood.Consu lt psych prn Severe pain 94461193 R52 Under good control on fentanyl patch 50 mcg q 3 days, prednisone 10 mg qd, and APAP prnRestart ing PT this week.Monit ro Edema 958058323 R60.0 lasix 40 mg BIDmetolaz one 2.5 mg 2x/wk on & .Cont inue wilma wraps daily.Carmela tor Hypokalemia 94418064 E87 .6 With borderline low K+ for awhile. Has never been on K+ supplement .Will recheck next week and if still low will add KCL 10 meq qd.Monitor Atrial fibrillation 4943 6004 I48.0 eliquis 5 mg bidlasix 40 mg bid daily Gastroesop hageal reflux disease without esophagitis 286606109 K21.9 omeprazole 40 mg daily Hyperlipidemia 32429711 E78.49 atorvastat in 40 mg daily Hypothyroidism 04562759 E03.8 levothyrox ine 200 mcg daily Osteoarthritis 650518355 M15.0 fentanyl 50 mcg patch q72 hr Osteoporosis 71627307 M8 1.0 methotrexa te 2.5 len dronate 70 thursdaypred nisone 10 mg daily Spinal roni nosis of lumbar region 43874087 M48.062 fentanyl patch 50 mcg q72 hourspredn isone 10 mg daily Fall W19.XXXA PT OT eval and treatfall precaution sfrequent safety checks [id number] MIKIE DUONG [place] [address] [place] [address] rd [place] [address] 01/03/2022 14:55:57 01/06/2022 20:46:48 Pancreatitis 65500520 K85.90 monitor for symptomsmo nitor labs Adult fail ure to thrive syndrome 812911541 R62.7 Doing much better. Wt. has been stable.Say s her appetite is good.gary zapine 7.5 mg qhs.Monito r wts. Mixed anxi ety and depressive disorder 521035995 F41.8 Mood good today.well butrin XL 150 mg bidmirtaza pine 7.5 mg qhsMonitor mood.Consu lt psych prn Severe pain 20261777 R52 Under good control on fentanyl patch 50 mcg q 3 days,predn isone 10 mg qd,APAP 650 mg q4hr prnPT OT eval and treat prnMonitor Edema 362241653 R60.0 lasix 40 mg BIDmetolaz one 2.5 mg 2x/wk on & , thursday.Con tinue wilma wraps daily.Carmela tor Hypokalemia 11977878 E87 .6 With borderline low K+ for awhile. Has never been on K+ supplement .Monitor Atrial fibrillation 4943 6004 I48.0 eliquis 5 mg bidlasix 40 mg bid dailymetol azone 2.5 mg , Gastroesop hageal reflux disease without esophagitis 750158553 K21.9 omeprazole 40 mg daily Hyperlipidemia 44550887 E78.49 atorvastat in 40 mg daily Hypothyroidism 26294783 E03.8 levothyrox ine 200 mcg daily Osteoarthritis 987683955 M15.0 fentanyl 50 mcg patch q72 hr Osteoporosis 06620400 M8 1.0 prednisone 10 mg daily Spinal roni nosis of lumbar region 19527110 M48.062 fentanyl patch 50 mcg q72 hourspredn isone 10 mg daily Fall W19.XXXA PT OT eval and treatfall precaution sfrequent safety checks [id number] BRYANNA URBANO NP [address] [address] 01/06/2022 10:28:02 01/09/2022 13:18:55 Edema 104198852 R60.0 lasix 40 mg BIDmetolaz one 2.5 mg 2x/wk on thursday.Con tinue wilma wraps daily.Carmela tor Pancreatitis 60514670 K8 5.90 monitor for symptomsmo nitor labs [id number] BRYANNA URBANO NP [address] [address] 01/08/2022 12:46:02 01/10/2022 16:30:00 Edema 262569246 R60.0 lasix 40 mg BIDmetolaz one 2.5 mg 2x/wk on thursday.Con tinue wilma wraps daily-comp ression stockingsM onitor Pancreatitis 63520360 K8 5.90 monitor for symptomsmo nitor labs [id number] BRYANNA URBANO NP [address] [address] 01/10/2022 11:53:05 01/14/2022 12:50:34 Hypothyroidism 07993736 E03.8 levothyrox ine 200 mcg daily-incr ease to 225 mcgrecheck tsh-free T4 in 6 weeks [id number] Ana Damon MD [address] [address] 02/11/2022 16:58:31 02/19/2022 16:14:54 Hypothyroidism 89439794 E03.8 Levothyrox ine was increased from 200 mcg qd to 225 mcg qd on 01/13 due to TSH of 12.24. Free T4 was WNL.Due for recheck of TSH and FT4 in a week or two. Adult fail ure to thrive syndrome 767576547 R62.7 Doesn't really have this dx anymore. Her wt. has been stable and her appetite is good.Leonora nue mirtazapin e 7.5 mg qhs.Monito r wts. Mixed anxi ety and depressive disorder 994596817 F41.8 Mood good today.Cont inue wellbutrin XL 150 mg qd and mirtazapin e 7.5 mg qhsMonitor mood.Psych following, may try a GDR. Edema 390775584 R60.0 Continue lasix 40 mg BID and metolazone 2.5 mg 2x/wk on & .Cont inue WILMA wraps qd.Monitor Chronic pancreatitis 235 389811 K86.1 Under good control on fentanyl patch 50 mcg q 3 days, prednisone 10 mg qd, and APAP 650 mg q 6 hrs prnMonitor . Generalize d osteoarthritis 278048213 M15.0 Pain control as above.Also diclofenac gel to shoulders BID and hands prn.Will add lidocaine patches to shoulders, low back and elbows as needed.PT/ OT as needed.Mon itor [id number] MIKIE DUONG [address] [address] 02/25/2022 11:22:33 03/10/2022 20:26:15 Hypothyroidism 25114891 E03.8 levothyrox ine 225 mcgrecheck tsh-free T4 in 6 weeks Spinal roni nosis of lumbar region 53518302 M48.062 fentanyl patch 50 mcg q72 hourspredn isone 10 mg daily [id number] BRYANNA URBANO NP [address] [address] 03/28/2022 11:18:57 04/03/2022 10:05:40 Generalized osteoarthritis 681137751 M15.0 tramadol 25 mg q6hr prndiclofe nac gel to shoulders BID and hands prn.Will add lidocaine patches to shoulders, low back and elbows as needed.PT/ OT as needed.Mon itor Severe pain 64947682 R52 Under good control on fentanyl patch 50 mcg q 3 days,predn isone 10 mg qd,APAP 650 mg q4hr prnPT OT eval and treat prnMonitor [id number] BRYANNA URBANO NP [address] [place] [address] 04/04/2022 10:53:36 04/08/2022 15:25:03 Mixed anxiety and depressive disorder 734314547 F41.8 Mood good today.well butrin XL 150 mg bidmirtaza pine 7.5 mg qhsMonitor mood.Consu lt psych prn Severe pain 05633874 R52 fentanyl patch 50 mcg q 3 days,predn isone 10 mg qd,APAP 1000 mg tidtramado l 25 mg bid prnPT OT eval and treat prnMonitor Edema 542069796 R60.0 lasix 40 mg BIDmetolaz one 2.5 mg 2x/wk on & , thursday.Con tinue wilma wraps daily.Carmela tor Hypokalemia 55391764 E87 .6 With borderline low K+ for awhile. Has never been on K+ supplement .Monitor Atrial fibrillation 4943 6004 I48.0 eliquis 5 mg bidlasix 40 mg bid dailymetol azone 2.5 mg , Gastroesop hageal reflux disease without esophagitis 526079997 K21.9 omeprazole 40 mg daily Hyperlipidemia 86757108 E78.49 monitor Hypothyroidism 83998003 E03.8 levothyrox ine 225 mcg daily Osteoarthritis 662225176 M15.0 fentanyl 50 mcg patch q72 hrAPAP 1000 mg tidtramado l 25 mg bid prnglucosa mine 500 mg tid Osteoporosis 76002851 M8 1.0 prednisone 10 mg daily Spinal roni nosis of lumbar region 71540523 M48.062 fentanyl patch 50 mcg q72 hourspredn isone 10 mg daily Fall W19.XXXA PT OT eval and treatfall precaution sfrequent safety checks Adult fail ure to thrive syndrome 586328596 R62.7 Doing much better. Wt. has been stable.Say s her appetite is good.gary zapine 7.5 mg qhs.Monito r wts. 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 M15.0 tramadol 25 mg bid prndiclofe nac gel to shoulders BID and hands prn.Will add lidocaine patches to shoulders, low back and elbowsgluc osamine 500 mg bidtizanad ine 2 mg bidPT/OT as needed.Mon itor Severe pain 79889687 R52 fentanyl patch 50 mcg q 3 days,predn isone 10 mg qd,APAP 1000 mg tiddiclofe nac gel and lido patchestiz anidine 2 mg bidtramado l 25 mg bid prnPT OT eval and treat prnMonitor [id number] BRYANNA URBANO NP [address] [address] 05/07/2022 10:29:27 05/09/2022 15:20:45 Pancreatitis 20517722 K85.90 monitor for symptomsmo nitor labs Mixed anxi ety and depressive disorder 840736757 F41.8 Mood good today.well butrin XL 150 mg bidmirtaza pine 7.5 mg qhsMonitor mood.Consu lt psych prn Severe pain 10234406 R52 fentanyl patch 50 mcg q 3 days,predn isone 10 mg qd,APAP 1000 mg tidtramado l 25 mg bid prnPT OT eval and treat prnMonitor Edema 214209735 R60.0 lasix 40 mg BIDmetolaz one 2.5 mg 2x/wk on & , thursday.Con tinue wilma wraps daily.Carmela tor Hypokalemia 80370238 E87 .6 With borderline low K+ for awhile. Has never been on K+ supplement .Monitor Atrial fibrillation 4943 6004 I48.0 eliquis 5 mg bid-on hold due to buttock bruiselasi x 40 mg bid dailymetol azone 2.5 mg , , doan Gastroesop hageal reflux disease without esophagitis 155518005 K21.9 omeprazole 40 mg daily Hyperlipidemia 74490800 E78.49 monitor Hypothyroidism 59010094 E03.8 levothyrox ine 225 mcg daily Osteoarthritis 007662578 M15.0 fentanyl 50 mcg patch q72 hrAPAP 1000 mg tidtramado l 25 mg bid prnglucosa mine 500 mg tid Osteoporosis 47847417 M8 1.0 prednisone 10 mg daily Spinal roni nosis of lumbar region 63803662 M48.062 fentanyl patch 50 mcg q72 hourspredn isone 10 mg daily Fall W19.XXXA PT OT eval and treatfall precaution sfrequent safety checks Adult fail ure to thrive syndrome 960568929 R62.7 Doing much better. Wt. has been stable.Say s her appetite is good.gary zapine 7.5 mg qhs.Monito r wts. Generalize d osteoarthritis 538239814 M15.0 tramadol 25 mg bid prndiclofe nac gel to shoulders BID and hands prn.Will add lidocaine patches to shoulders, low back and elbowsgluc osamine 500 mg bidPT/OT as needed.Mon itor Contusion 762875520 T14. 8XXA monitor bruising for extension or lesseningh old eliquis [id number] Samina Wilburn MD [address] [address] 05/30/2022 07:35:26 06/04/2022 16:14:23 Chronic pain 19947824 G89.29 diclofenac gel 1% to shoulders bid, to both hands and spine prnfentany l patch 50 mcg q72 hsalonpas patch to right shoulder dailyAPAP 1000 mg tidtramado l 25 mg bidtizanid ine 2 mg bidprednis one 10 mg dailyPT/OT /PM&R prnwill monitor Mixed anxi ety and depressive disorder 539196280 F41.8 bupropion SR 150 mg dailymirta zapine 7.5 mg at hswill monitor Hypothyroidism 08094875 E03.8 levothyrox ine 225 mcg dailywill monitor Atrial fibrillation 4943 6004 I48.0 consider restart ACheld due to hematoma Type 2 russel betes mellitus 28535430 E11.9 insulin aspart per sliding scalewill monitor Edema 442225370 R60.0 furosemide 40 mg dailymetol azone 2.5 mg daily on T, Th, Sawill monitor Gastroesop hageal reflux disease without esophagitis 524284829 K21.9 omeprazole 40 mg bidwill monitor Recurrent pancreatitis 314694883 K86.1 fu GI prnlow fat dietwill monitor [id number] BRYANNA URBANO NP KAREEM HAYNES [address] [place] [address] 07/21/2022 10:43:42 08/01/2022 13:30:09 COVID-19 750424218 U07.1 07/20 covid positiveen courage po food and fluidscons ider ivf for anorexiaco nsider paxlovid or decadron for symptomsse nd to ED for decompensa tion [id number] BRYANNA URBANO NP [address] [address] 07/23/2022 11:28:07 08/01/2022 14:08:08 COVID-19 352546622 U07.1 07/20 covid positiveen courage po food and fluidscons ider ivf for anorexiaco nsider paxlovid or decadron for symptomsse nd to ED for decompensa tion Chronic pain 83320456 G8 9.29 diclofenac gel 1% to shoulders bid, to both hands and spine prnfentany l patch 50 mcg q72 hsalonpas patch to right shoulder dailyAPAP 1000 mg tidtramado l 25 mg bidtizanid ine 2 mg bidprednis one 10 mg dailyPT/OT /PM&R prnwill monitor Mixed anxi ety and depressive disorder 210931332 F41.8 bupropion SR 150 mg dailymirta zapine 7.5 mg at hswill monitor Hypothyroidism 69009532 E03.8 levothyrox ine 225 mcg dailywill monitor Atrial fibrillation 4943 6004 I48.0 eliquis 2.5 mg bidmonitor for any hematomas Type 2 russel betes mellitus 61094443 E11.9 insulin aspart per sliding scalewill monitor Edema 724801432 R60.0 furosemide 40 mg dailymetol azone 2.5 mg daily on T, Th, Sawill monitor Gastroesop hageal reflux disease without esophagitis 830723988 K21.9 omeprazole 40 mg bidwill monitor Recurrent pancreatitis 666200348 K86.1 fu GI prnlow fat dietwill monitor [id number] BRYANNA URBANO NP [facility] [place] [address] [place] [phone] 07/25/2022 10:22:57 08/01/2022 15:15:29 COVID-19 419566467 U07.1 07/20 covid positiveen courage po food and fluidscons ider ivf for anorexiaco nsider paxlovid or decadron for symptomsse nd to ED for decompensa tion [id number] BRYANNA URBANO NP [address] [address] 07/30/2022 11:27:21 08/01/2022 15:57:11 COVID-19 799728488 U07.1 07/20 covid positive-a symptomati c, recovered by dateencour age po food and fluidscons ider ivf for anorexiaco nsider paxlovid or decadron for symptomsse nd to ED for decompensa tion [id number] BRYANNA URBANO NP [address] [address] 07/31/2022 12:15:38 08/05/2022 18:21:58 COVID-19 730229115 U07.1 07/20 covid positive-a symptomati c, recovered by dateencour age po food and fluidscons ider ivf for anorexiaco nsider paxlovid or decadron for symptomsse nd to ED for decompensa tionCXR ordered for 07/31 Pancreatitis 39302155 K8 5.90 monitor for symptomsmo nitor labs [id number] BRYANNA URBANO NP [address] [address] 08/01/2022 11:59:17 08/06/2022 08:14:07 COVID-19 805100716 U07.1 07/20 covid positive-a symptomati c, recovered by dateencour age po food and fluidscons ider ivf for anorexiaco nsider paxlovid or decadron for symptomsse nd to ED for decompensa tionCXR ordered for 07/31-negati ve for chf or pna [id number] MIKIE Dasilva [address] [facility] [place] [address] 08/09/2022 10:30:12 08/13/2022 13:00:41 COVID-19 792681634 U07.1 resolved- no new treatment in hospital documentof f isolation precaution scovid rapid negative in facility on 08/09/22 per nursingmon itor for sequelae note: 07/20 covid positive-a symptomati c, recovered by dateencour age po food and fluidscons ider ivf for anorexiaco nsider paxlovid or decadron for symptomsse nd to ED for decompensa tionCXR ordered for 07/31-negati ve for chf or pna Pancreatitis 43710685 K8 5.90 was treated with ivf, medication s, and pain adjuncts- now improvedmo nitor for symptomsav oid fatty foods on low fat dietmonito r labs Chronic pain 26037639 G8 9.29 contdiclof enac gel 1% to shoulders bid, to both hands and spine prnfentany l patch 50 mcg q72 hsalonpas patch to right shoulder dailyAPAP 1000 mg tidtramado l 25 mg bidtizanid ine 2 mg bidprednis one 10 mg dailyPT/OT for weakness and painwill monitor Recurrent pancreatitis 300591137 K86.1 fu GI prnlow fat dietwill monitor Dislocatio n of shoulder joint 068738903 S43.004A pt has right shoulder dislocatio ncontinue pain meds as belowsling and swath as toleratedp assive romPT/OTfu with Dr Velasquez outptmonit or for cms, pulses, disclorati on [id number] MIKIE DUONG [address] [facility] [place] [address] 08/11/2022 10:07:53 08/13/2022 13:35:33 Pancreatitis 47995720 K85.90 monitor for symptomsmo nitor labswas treated with ivf, medication s, and pain adjuncts- now improvedmo nitor for symptomsav oid fatty foods on low fat diet Dislocatio n of shoulder joint 654070431 S43.004A pt has chronic right shoulder dislocatio ncontinue pain medssling and swath as toleratedp assive romPT/OTfu with Dr Velasquez outptmonit or for cms, pulses, disclorati on [id number] MIKIE DUONG [place] [address] [facility] [place] [address] 08/25/2022 11:17:28 08/27/2022 14:05:17 Pancreatitis 22229105 K85.90 monitor for symptomsmo nitor labswas treated with ivf, medication s, and pain adjuncts- now improvedmo xifloxin 400 mg daily x4 daysmonito r for symptoms avoid fatty foods on low fat diet Dislocatio n of shoulder joint 216274435 S43.004A pt has chronic subluxatio n right shoulder dislocatio ncontinue pain meds as belowsling and swath as toleratedp assive romPT/OTfu with Dr Velasquez outptmonit or for cms, pulses, disclorati on Chronic pain 81883488 G8 9.29 contdiclof enac gel 1% to shoulders bid, to both hands and spine prnfentany l patch 50 mcg q72 hsalonpas patch to right shoulder dailyAPAP 1000 mg tidtramado l 25 mg bidtizanid ine 2 mg bidprednis one 10 mg dailyPT/OT for weakness and painwill monitor COVID-19 118880388 U07.1 resolved- no new treatment in hospital documentof f isolation precaution scovid rapid negative in facility on 08/09/22 per nursingmon itor for sequelae note: 07/20 covid positive-a symptomati c, recovered by dateencour age po food and fluidscons ider ivf for anorexiaco nsider paxlovid or decadron for symptomsse nd to ED for decompensa tionCXR ordered for 07/31-negati ve for chf or pna Recurrent pancreatitis 355508758 K86.1 f/u GI prnlow fat dietwill monitor [id number] BRYANNA URBANO NP KAREEM HAYNES [address] [facility] [place] [address] 09/04/2022 10:39:19 09/08/2022 15:11:55 Dislocation of shoulder joint 645688136 S43.004A pt has chronic subluxatio n right shoulder dislocatio ncontinue pain meds as belowsling and swath as tolerated for comfort prnPT/Edilson/ u with Dr Velasquez outptmonit or for cms, pulses, disclorati on Mixed anxi ety and depressive disorder 154450480 F41.8 bupropion SR 150 mg dailymirta zapine 7.5 mg at hswill monitor [id number] Samina Wilburn MD [address] [place] [address] 10/01/2022 10:06:00 10/03/2022 11:00:52 Atrial fibrillation 31906430 I48.0 apixaban 2.5 mg bidwill monitor Recurrent pancreatitis 177398565 K86.1 fu GIlow fat dietwill monitor Gastroesop hageal reflux disease without esophagitis 926227755 K21.9 omeprazole 40 mg bidwill monitor Type 2 russel betes mellitus 60299117 E11.9 insulin aspart per sliding scalewill monitor Chronic pain 70013619 G8 9.29 diclofenac gel 1% to shoulders bid, to both hands and spine prnfentany l patch 50 mcg q72 hsalonpas patch to right shoulder dailyAPAP 1000 mg tidtramado l 25 mg bidtizanid ine 2 mg bidprednis one 10 mg dailyPT/OT /PM&R prnwill monitor Peripheral edema 1658410 00 R60.0 metolazone 2.5 mg , Th, Sufurosemi de 40 mg bidwill monitor Hypothyroidism 11150130 E03.8 levothyrox ine 225 mcg dailywill monitor Mixed anxi ety and depressive disorder 583539714 F41.8 bupropion SR 150 mg dailymirta zapine 7.5 mg at hstizanidi ne 2 mg bidwill monitor Essential hypertension 49917756 I10 metolazone 2.5 mg daily on , , Safurosemi de 40 mg bidwill monitor [id number] BRYANNA URBANO NP [address] [place] [address] 10/15/2022 14:06:21 10/20/2022 14:25:22 Atrial fibrillation 43806463 I48.0 apixaban 2.5 mg bidwill monitor Recurrent pancreatitis 035910070 K86.1 fu GIlow fat dietwill monitor Gastroesop hageal reflux disease without esophagitis 260367204 K21.9 omeprazole 40 mg bidwill monitor Type 2 russel betes mellitus 44733672 E11.9 insulin aspart per sliding scalewill monitor Chronic pain 71475760 G8 9.29 diclofenac gel 1% to shoulders bid, to both hands and spine prnfentany l patch 50 mcg q72 hsalonpas patch to right shoulder dailyAPAP 1000 mg tidtramado l 25 mg bidtizanid ine 2 mg bidprednis one 10 mg dailyPT/OT /PM&R prnwill monitor Peripheral edema 5909731 00 R60.0 metolazone 2.5 mg , Th, Sufurosemi de 40 mg bidwill monitor Hypothyroidism 99473186 E03.8 levothyrox ine 225 mcg dailywill monitor Mixed anxi ety and depressive disorder 111474896 F41.8 bupropion SR 150 mg dailymirta zapine 7.5 mg at hstizanidi ne 2 mg bidwill monitor Essential hypertension 96328395 I10 metolazone 2.5 mg daily on , , Safurosemi de 40 mg bidwill monitor [id number] MIKIE DUONG [address] [place] [address] 11/28/2022 13:21:24 12/03/2022 17:20:32 Atrial fibrillation 03238945 I48.0 apixaban 2.5 mg bidwill monitor Recurrent pancreatitis 410976955 K86.1 f/u GIlow fat dietwill monitor Gastroesop hageal reflux disease without esophagitis 261256465 K21.9 omeprazole 40 mg bidwill monitor Type 2 russel betes mellitus 45822862 E11.9 insulin aspart per sliding scalewill monitor Chronic pain 57289274 G8 9.29 diclofenac gel 1% to shoulders bid, to both hands and spine prnfentany l patch 50 mcg q72 hsalonpas patch to right shoulder dailyAPAP 1000 mg tidtramado l 25 mg bidtizanid ine 2 mg bidprednis one 10 mg dailyPT/OT /PM&R prnwill monitor Peripheral edema 5835293 00 R60.0 metolazone 2.5 mg , , Sufurosemi de 40 mg bidwill monitor Hypothyroidism 59353971 E03.8 levothyrox ine 225 mcg dailywill monitor Mixed anxi ety and depressive disorder 231694574 F41.8 bupropion SR 150 mg dailymirta zapine 7.5 mg at hstizanidi ne 2 mg bidwill monitor Essential hypertension 15641405 I10 metolazone 2.5 mg daily on , , Safurosemi de 40 mg bidwill monitor [id number] BRYANNA URBANO NP [address] [address] 01/14/2023 14:00:23 01/16/2023 15:25:27 Mixed anxiety and depressive disorder 776993318 F41.8 bupropion SR 150 mg dailymirta zapine 7.5 mg at hstizanidi ne 2 mg bidwill monitor Severe pain 71032690 R52 fentanyl patch 50 mcg q 3 days,predn isone 10 mg qd,APAP 1000 mg tidtramado l 25 mg bid prnPT OT eval and treat prnMonitor Fall W19.XXXA PT OT eval and treatfall precaution sfrequent safety checks [id number] Samina Wilburn MD [address] [place] [address] 02/11/2023 10:06:26 02/13/2023 16:03:58 Mixed anxiety and depressive disorder 038592614 F41.8 bupropion SR 150 mg dailymirta zapine 7.5 mg at hswill monitor Atrial fibrillation 4943 6004 I48.0 apixaban 2.5 mg bidwill monitor Type 2 russel betes mellitus 63669032 E11.9 insulin aspart per sliding scalewill monitor Chronic pain 79722505 G8 9.29 diclofenac gel 1% to shoulders bid, to both hands and spine prnfentany l patch 50 mcg q72 hsalonpas patch to right shoulder dailyAPAP 1000 mg tidtramado l 25 mg bidtizanid ine 2 mg bidprednis one 10 mg dailyPT/OT /PM&R prnwill monitor Gastroesop hageal reflux disease without esophagitis 822769460 K21.9 omeprazole 40 mg bidwill monitor Hypothyroidism 04567448 E03.8 levothyrox ine 225 mcg dailywill monitor Edema 808110005 R60.0 furosemide 40 mg dailymetol azone 2.5 mg daily on T, Th, Sawill monitor [id number] Ana Damon MD [address] [place] [address] 03/20/2023 20:34:03 03/23/2023 14:49:16 Ecchymosis present 449748321 S80.02XA Probably bumped it and doesn't remember, no pain, so no tx needed.Mon itor for resolution and monitor for new ecchymoses . Nausea 306510420 R11.0 Mild, periodic and chronic.Wi ll start Zofran 4 mg q 6 hrs prnMonitor sxs. Chronic neck pain 558199 9438 107 M54.2 Already on multiple pain meds.Will start lidocaine patch to neck prn, pt. says it only hurts sometimes, so doesn't want it scheduled. Continue fentanyl patch 50 mcg q 72 hrs, APAP 1000 mg TID,tramad ol 25 mg BID,tizani dine 2 mg BID andprednis one 10 mg qd.Monitor sxs. [id number] BRYANNA URBANO NP [address] [place] [address] 04/03/2023 16:33:21 04/10/2023 09:59:49 Mixed anxiety and depressive disorder 701260927 F41.8 bupropion SR 150 mg dailymirta zapine 7.5 mg at hswill monitor Atrial fibrillation 4943 6004 I48.0 apixaban 2.5 mg bidwill monitor Type 2 russel betes mellitus 17036176 E11.9 insulin aspart per sliding scalewill monitor Chronic pain 98585728 G8 9.29 fentanyl patch 50 mcg q72 hsalonpas patch to right shoulder dailyAPAP 1000 mg tidtramado l 25 mg bidtizanid ine 2 mg bidprednis one 10 mg dailyPT/OT /PM&R prnwill monitor Gastroesop hageal reflux disease without esophagitis 292016465 K21.9 omeprazole 40 mg bidwill monitor Hypothyroidism 33961828 E03.8 levothyrox ine 225 mcg dailywill monitor Edema 251172194 R60.0 furosemide 40 mg dailymetol azone 2.5 mg daily on , , Sawill monitor [id number] MD KAREEM Whitaker [address] [facility] [place] [address] 05/29/2023 18:52:13 06/12/2023 13:46:31 Mixed anxiety and depressive disorder 576196929 F41.8 Mood good tonight.Co ntinue bupropion SR 150 mg qd and mirtazapin e 7.5 mg qhsMonitor mood.Psych follows Atrial fibrillation 4943 6004 I48.0 Rate in good control on no rate controllin g meds.Leonora nue eliquis 2.5 mg BID for AC.Monitor HR and bleeding risk. Type 2 russel betes mellitus 79354545 E11.9 Last HgA1C 7.6 in 03/2022.Sug ars in adequate control on diet control with occ. SSI.Monito r fingerstic ks TID, due for recheck of HgA1C, forgot to order. Chronic pain 86555621 G8 9.29 Will add diclofenac gel for hands BID.Contin ue fentanyl patch 50 mcg q 72 hrs, salonpas patch to right shoulder qd, APAP 1000 mg TID, tramadol 25 mg BID, tizanidine 2 mg BID, and prednisone 10 mg qd.Continu e rehab as able.Monit or sxs. Gastroesop hageal reflux disease without esophagitis 909624357 K21.9 No current sxs.Contin ue omeprazole 40 mg BID.Monito r sxs Hypothyroidism 56687712 E03.8 TSH WNL.Contin ue levothyrox ine 225 mcg qdMonitor TSH yearly. Edema 216788799 R60.0 At baseline.C ontinue furosemide 40 mg qd and metolazone 2.5 mg qd on , , SaMonitor sxs. [id number] MIKIE DUONG [address] [facility] [place] [address] 06/29/2023 12:07:31 07/07/2023 18:16:09 Fall 7332271 W19.XXXA PT OT eval and treatfall precaution sfrequent safety checks Contusion of face 422353 004 S00.83XA monitor neurosmoni tor for any signs of infectionm onitor for resolution of the bruising [id number] BRYANNA URBANO NP [address] [address] 07/01/2023 12:23:08 07/07/2023 19:15:00 Contusion of face 747754984 S00.83XA monitor neurosmoni tor for any signs of infectionm onitor for resolution of the bruising Edema 607931444 R60.0 furosemide 40 mg dailymetol azone 2.5 mg daily on T, Th, Sawill monitor [id number] BRYANNA URBANO NP [address] [address] 07/24/2023 12:53:42 08/04/2023 13:25:11 Contusion of face 765515051 S00.83XA resolvedmo nitor neurosmoni tor for any signs of infectionm onitor for resolution of the bruising Edema 921489993 R60.0 furosemide 40 mg dailymetol azone 2.5 mg daily on T, Th, Sawill monitor Fall W19.XXXA PT OT eval and treatfall precaution sfrequent safety checks Mixed anxi ety and depressive disorder 134583229 F41.8 bupropion SR 150 mg dailymirta zapine 7.5 mg at hswill monitor Atrial fibrillation 4943 6004 I48.0 apixaban 2.5 mg bidwill monitor Type 2 russel betes mellitus 90193444 E11.9 insulin aspart per sliding scalewill monitor Chronic pain 58600407 G8 9.29 fentanyl patch 50 mcg q72 hsalonpas patch to right shoulder dailyAPAP 1000 mg tidtramado l 25 mg bidtizanid ine 2 mg bidprednis one 10 mg dailyPT/OT /PM&R prnwill monitor Gastroesop hageal reflux disease without esophagitis 150499229 K21.9 omeprazole 40 mg bidwill monitor Hypothyroidism 82940764 E03.8 levothyrox ine 225 mcg dailywill monitor [id number] NELDA MANSFIELD [address] [address] 09/03/2023 09:01:19 09/08/2023 15:59:59 Dry skin dermatitis 112922231 L85.3 see hpireports intermitte nt itchiness at timesfluid s encouraged Apply moisturize r to skin BIDhydorco rtisone cream TID prn 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 not appreciate d on examwarm salt water rinses QID prngood oral hygiene encourageb arcos teeth after mealschlor hexidine mouth wash qd and HS Toothache 52438553 K08.8 9 [id number] Samian Wilburn MD [address] [address] 09/23/2023 08:31:39 09/29/2023 10:26:59 Mixed anxiety and depressive disorder 256367405 F41.8 bupropion SR 150 mg dailymirta zapine 7.5 mg at hswill monitor Chronic pain 10138036 G8 9.29 diclofenac gel 1% to shoulders daily in eveningfen tanyl patch 50 mcg q72 hLidocaine patch to right shoulder and neck dailyAPAP 1000 mg tidtramado l 25 mg bidtizanid ine 2 mg bidprednis one 10 mg dailyPT/OT /PM&R prnwill monitor Atrial fibrillation 4943 6004 I48.0 apixaban 2.5 mg bidwill monitor Type 2 russel betes mellitus 18848385 E11.9 insulin aspart per sliding scalewill monitor Hypothyroidism 29308644 E03.8 levothyrox ine 225 mcg dailywill monitor Gastroesop hageal reflux disease without esophagitis 024054987 K21.9 omeprazole 40 mg bidwill monitor Edema 882456329 R60.0 furosemide 40 mg dailymetol azone 2.5 mg daily on T, Th, Sawill monitor Chronic dermatitis 33422 007 L20.89 d/c compressio n stockingst riamcinolo ne cream bidelevate d legswill monitor [id number] NELDA MANSFIELD [address] [address] 09/24/2023 08:15:25 10/01/2023 11:35:02 Fall 2905246 W19.XXXA see hpiPT/OT eval and tx per facility protocolmi nimize fall risknursin g to educate pt on making sure wheelchair is in lock position and front wheels are facing forward before getting up out of chair. Contusion 981984645 T14. 8XXA Patient hit her right almanza against bed frame when she fell forwardnot ed with mild tenderness on eliquismon itor right almanza bruise for healing [id number] NELDA MANSFIELD [address] [address] 10/13/2023 10:07:38 10/15/2023 15:15:36 Neuropathy 620637871 G62.9 bilateral lower extremity calf with tingling pain and tenderness she is not experience any pain relief with current pain medication spatient agrees to try gabapentin times one dose 100mg she will update nursing if she experience relief. Fatigue 31156458 R53.83 appears tirediron studies, tsh, t4, bmp and cbc, vit D and Vit B levels orderedwil l r/o UTI as well. Type 2 russel betes mellitus 03716797 E11.9 currently on lispro SSC will adjust coveragere cently added lantus 10 units10/12 increased lantus to 15 units Hypothyroidism 15451316 E03.8 levothyrox ine 225 mcg dailyord TSH, T4 for 10/13 [id number] NELDA MANSFIELD [address] [address] 10/19/2023 13:21:25 10/22/2023 12:31:39 Vitamin D deficiency 21158703 E55.9 VIt D level 22start cholecacif telly 1000 unit dailyreche ck Vitamin D level in 3-4 months Neuropathy 182911737 G62 .9 today she tells me that she has a postive effect with gabapentin and would like to continue, she has not had any pain.will scheduled gabapentin 100 mg BID Q12 Type 2 russel betes mellitus 78583088 E11.9 currently on lispro SSC will adjust coveragere cently added lantus 10 units/19 increased lantus to 15 units325: FS have improved Hypothyroidism 69594343 E03.8 levothyrox ine 225 mcg dailyord TSH, T4 for 10/13 Pending Dry skin dermatitis 2600 34638 L85.3 posterior calf noted with red patchy areas that are dry and flakyrefus ed rx cream recommende rosa prefer and has been using -goldbond creamuses her own with good effect per patient.wi monitor. [id number] NELDA MANSFIELD [address] [address] 10/30/2023 21:18:42 11/02/2023 15:19:50 Type 2 diabetes mellitus 46830281 E11.9 continue lispro SSCcontinu e lantus 15 unitsmonit or FS TID Hypothyroidism 99708314 E03.8 levothyrox ine decreased to 175 mcgTSH 0.1 T4 normal rangerepea t labs in 6 weeks Abdominal pain 99743893 R10.9 see hpicontinu e zofran prn for nauseaplan robin upcoming EGD. [id number] NELDA MANSFIELD [address] [address] 11/04/2023 10:45:41 11/16/2023 16:04:21 Type 2 diabetes mellitus 75044901 E11.9 continue lispro SSCcontinu e lantus 15 unitsmonit or FS TID Hypothyroidism 64873650 E03.8 levothyrox ine decreased to 175 mcgTSH 0.1 T4 normal rangerepea t labs in 6 weeks Abdominal pain 57768787 R10.9 see hpicontinu e zofran prn for nauseaEGD unremarkab le Urinary tr act infectious disease 55575734 N39.0 10/21: postive UAstart levofloxac in 250 mg for 5 daysstart probiotic 1 tab bid for 10 daysincrea se oral hydration. [id number] NELDA MANSFIELD [address] [address] 11/19/2023 10:42:12 11/27/2023 15:22:30 Type 2 diabetes mellitus 53776053 E11.9 continue lispro SSCcontinu e lantus 15 unitsmonit or FS TID Hypothyroidism 01583906 E03.8 levothyrox ine decreased to 175 mcgTSH 0.1 T4 normal rangerepea t labs in 6 weeks Abdominal pain 93374570 R10.9 see hpicontinu e zofran prn for nauseaEGD unremarkab le Urinary tr act infectious disease 30581405 N39.0 10/21: postive UAstart levofloxac in 250 mg for 5 daysstart probiotic 1 tab bid for 10 daysincrea se oral hydration. Mixed anxi ety and depressive disorder 431514722 F41.8 bupropion SR 150 mg dailymirta zapine 7.5 mg at hswill monitor Chronic pain 02902671 G8 9.29 diclofenac gel 1% to shoulders daily in eveningfen tanyl patch 50 mcg q72 hLidocaine patch to right shoulder and neck dailyAPAP 1000 mg tidtramado l 25 mg bidtizanid ine 4 mg bidprednis one 10 mg dailyPT/OT /PM&R prnwill monitor Atrial fibrillation 4943 6004 I48.0 continue apixaban 2.5 mg bid Gastroesop hageal reflux disease without esophagitis 087073245 K21.9 omeprazole 40 mg bidcontinu e zofran 4 mg q6 prn Edema 028470086 R60.0 continue furosemide 40 mg dailyconti nue metolazone 2.5 mg daily on , , Eczema 01747056 L30.9 triamcinol one 0.1 % cream BID Dyspnea 720779503 R06.00 continue albuterol inhaler prn for shortness of breath Osteoarthritis 412475931 M15.0 lidocaine patch right shoulder.f entanyl 50 mcg patch q72 hrAPAP 1000 mg tidtramado l 25 mg bid prnglucosa mine 500 mg tid Chronic neck pain 382543 0236 107 M54.2 continue gabapentin 100 mg BID Neuropathy 279606882 G62 .9 continue gabapentin 100 mg BID. 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 [id number] NELDA MANSFIELD [address] [place] [address] [place] [address] 11/26/2023 18:58:29 12/01/2023 10:07:02 Pain of left heel 8056813264 325106 M79.672 skin prep to bilateral heels BIDoff load heels on pillow when in bedmonitor for worsening sx.Risk factor discussed diabetes ,immobilit y, age [id number] NELDA MANSFIELD [facility] [place] [address] [place] [address] [place] [address] 12/14/2023 08:12:26 12/17/2023 13:25:50 Eczema 78021574 L30.9 bilateral lower extremitie s rash with scattered patches dry and redhx chronic edema, there is potential for weeping/oo zingtriamc inolone 0.1 % cream BIDmoistur izes legs daily Pain of right heel 30275 23826 685250 M79.671 right heel red and boggywill add skin prep BIDoffload heels when in bedwear socks with shoes Neuropathy 506082323 G62 .9 reports increasing bilateral leg painwill increase gabapentin to 200 mg BID and re assess for inprovemen t. [id number] NELDA MANSFIELD KAREEM [place] [address] [place] [address] [place] [address] 01/12/2024 12:10:02 01/13/2024 16:55:18 Easy bruising 553172740 R58 reddish mid upper chest bruising, skin intactshe is noted with scattered bruising on shoulder as well.she takes eliquis and prednisone , diuretic dailywill continue to monitor.wi ll check iron studies and VIT D on next lab day. Hypothyroidism 21870244 E03.8 continue levothyrox ine 175 mcgTSH now 1.74contin ue to monitor. [id number] Ana Damon MD [address] [place] [address] 02/01/2024 21:46:09 02/17/2024 11:18:25 Chronic pain 05886874 G89.29 Remains at baseline.C ontinue fentanyl patch 50 mcg q 72 hrs, salonpas patch to right shoulder qd, APAP 1000 mg TID, tramadol 25 mg BID, tizanidine 2 mg BID, and prednisone 10 mg qd.Continu e rehab as able.Monit or sxs. 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 SSI.Monito r fingerstic ks TID, due for recheck of HgA1C, forgot to order. Gastroesop hageal reflux disease without esophagitis 335299958 K21.9 No current sxs.Contin ue omeprazole 40 mg BID.Monito r sxs Hypothyroidism 54397317 E03.8 TSH WNL.Contin ue levothyrox ine 225 mcg qdMonitor TSH yearly. Edema 405316372 R60.0 Marked tonight.Co ntinue furosemide 40 mg qd and metolazone 2.5 mg qd on , , SaMonitor sxs. Eczema 36521658 L30.9 Much improved.C ontinue triamcinol one 0.1 % cream BID and house moisturize r qdMonitor Neuropathy 958761911 G62 .89 Gabapentin was increased to 200 mg BID on 12/14/23Som e improvemen t since then.Leonora nue other pain meds as above also.Monit or. [id number] MIKIE SCALES [place] [address] [place] [address], [place] [address] 02/18/2024 11:02:37 02/20/2024 09:33:35 Edema 444819201 R60.0 Suspecting more may be going on, [...] nFurther work up as indicated Chronic pain 95375695 G8 9.29 Remains at baseline.C ontinue fentanyl patch 50 mcg q 72 hrs, salonpas patch to right shoulder qd, APAP 1000 mg TID, tramadol 25 mg BID, tizanidine 2 mg BID, and prednisone 10 mg qd.Continu e rehab as able.Monit or sxs. Mixed anxi ety and depressive disorder 340191799 F41.8 Mood goodContin ue bupropion SR 150 mg qd and mirtazapin e 7.5 mg qhsMonitor mood.Psych follows Atrial fibrillation 4943 6004 I48.0 Rate remains in good control on no rate controllin g meds.Leonora nue eliquis 2.5 mg BID for AC.Monitor HR and bleeding risk. Type 2 russel betes mellitus 79255123 E11.9 Last HgA1C 7.6 in 03/2022.Sug ars in adequate control on diet control with occ. SSI.Monito r fingerstic ks TID, due for recheck of HgA1C, forgot to order. Gastroesop hageal reflux disease without esophagitis 373472662 K21.9 No current sxs.Contin ue omeprazole 40 mg BID.Monito r sxs Hypothyroidism 48619333 E03.8 TSH WNL.Contin ue levothyrox ine 225 mcg qdMonitor TSH yearly. Eczema 22425241 L30.9 Much improved.C ontinue triamcinol one 0.1 % cream BID and house moisturize r qdMonitor Neuropathy 923777487 G62 .89 Gabapentin was increased to 200 mg BID on 12/14/23Som e improvemen t since then.Leonora nue other pain meds as above also.Monit or. Candidiasis of mouth 797 44861 B37.0 Aranda plaque on tongue.Voi ce hoarse, ? if also esophageal Nystatin Swish and swallow 5 ml qid x 30 daysMainta in oral hygeine, brush tongue Dental caries 09573726 K 02.9 Planning for teeth # 29 and 31 extraction s.Will hold clearance for now until fluid balance figured out.Will hold basaglar insulin the night before procedureW ill hold eliquis the day before and the day of procedureD oes not appear abx. proph. is warrantedC ardiac risk currently low for dental extraction s. Hypokalemia 24959744 E87 .6 K 3.1 on labs 02/16/24Pla n as above [id number] NELDA MANSFIELD [address] [place] [address] rd [place] [address] 02/23/2024 11:06:51 02/24/2024 15:45:14 Edema 291942331 R60.[address] xray did not show [...] restrictio nFurther work up as indicated Hypokalemia 72207465 E87 .6 02/21:Impro thomas 3.4continu e kcl 30 meq daily. Chronic pain 70475663 G8 9.29 Remains at baseline.C ontinue fentanyl patch 50 mcg q 72 hrs, salonpas patch to right shoulder qd, APAP 1000 mg TID, tramadol 25 mg BID, tizanidine 2 mg BID, and prednisone 10 mg qd.Continu e rehab as able.Monit or sxs. Mixed anxi ety and depressive disorder 742542155 F41.8 Mood goodContin ue bupropion SR 150 mg qd and mirtazapin e 7.5 mg qhsMonitor mood.Psych follows Atrial fibrillation 4943 6004 I48.0 Rate remains in good control on no rate controllin g meds.Leonora nue eliquis 2.5 mg BID for AC.Monitor HR and bleeding risk. Type 2 russel betes mellitus 91384263 E11.9 Last HgA1C 7.6 in 03/2022.Sug ars in adequate control on diet control with occ. SSI.Monito r fingerstic ks TID, due for recheck of HgA1C, forgot to order. Gastroesop hageal reflux disease without esophagitis 885453957 K21.9 No current sxs.Contin ue omeprazole 40 mg BID.Monito r sxs Hypothyroidism 50893194 E03.8 TSH WNL.Contin ue levothyrox ine 225 mcg qdMonitor TSH yearly. Eczema 72668609 L30.9 Much improved.C ontinue triamcinol one 0.1 % cream BID and house moisturize r qdMonitor Neuropathy 984865283 G62 .89 Gabapentin was increased to 200 mg BID on 12/14/23Som e improvemen t since then.Leonora nue other pain meds as above also.Monit or. Pneumonia 250687044 J18. 9 02/17: chest xray showed bilateral [...] rage fluid hydration. Vitamin D deficiency 347 63623 E55.9 12/06:Vit D level 20.4 - this is lower than previous levelwas taking cholecalci ferol 1000 unit daily -will increases to 50,000 unit weekly on thursday.patricia parkinson recheck in 2 months. [id number] BRYAN BERNARDO, [facility] [address] [place] [address] [place] [address] 02/25/2024 10:46:10 02/29/2024 16:18:54 Edema 094046445 R60.[address] xray did not show [...] restrictio nFurther work up as indicated Hypokalemia 38730461 E87 .6 02/21:Impro thomas 3.4continu e kcl 30 meq daily. Chronic pain 98269991 G8 9.29 Remains at baseline.C ontinue fentanyl patch 50 mcg q 72 hrs, salonpas patch to right shoulder qd, APAP 1000 mg TID, tramadol 25 mg BID, tizanidine 2 mg BID, and prednisone 10 mg qd.Continu e rehab as able.Monit or sxs. Mixed anxi ety and depressive disorder 325611807 F41.8 Mood goodContin ue bupropion SR 150 mg qd and mirtazapin e 7.5 mg qhsMonitor mood.Psych follows Atrial fibrillation 4943 6004 I48.0 Rate remains in good control on no rate controllin g meds.Leonora nue eliquis 2.5 mg BID for AC.Monitor HR and bleeding risk. Type 2 russel betes mellitus 08008069 E11.9 Last HgA1C 7.6 in 03/2022.Sug ars in adequate control on diet control with occ. SSI.Monito r fingerstic ks TID, due for recheck of HgA1C, forgot to order. Gastroesop hageal reflux disease without esophagitis 615420057 K21.9 No current sxs.Contin ue omeprazole 40 mg BID.Monito r sxs Hypothyroidism 49029551 E03.8 TSH WNL.Contin ue levothyrox ine 225 mcg qdMonitor TSH yearly. Eczema 60074858 L30.9 Much improved.C ontinue triamcinol one 0.1 % cream BID and house moisturize r qdMonitor Neuropathy 179291150 G62 .89 Gabapentin 200 mg BIDreports bilateral lower extremity pain- noted with swelling >in LLE than RLE-awaiti ng ultrasound to r/o DVT. due to be done today at 3 pmPt willing to try diclofenac gel for lower extremity to see it helps with pain. Pneumonia 052534080 J18. 9 02/17: chest xray showed bilateral [...] rage fluid hydration. Vitamin D deficiency 347 57237 E55.9 12/06:Vit D level 20.4 - this is lower than previous levelwas taking cholecalci ferol 1000 unit daily -will increases to 50,000 unit weekly on thursday.patricia parkinson recheck in 2 months. [id number] NELDA MANSFIELD [address] [place] [address] 02/29/2024 18:11:58 03/01/2024 13:10:29 Pneumonia 011719294 J18.9 breathing is easy and unlabored: chest xray showed bilateral airspace opacities. No pleural effusion.c ontinue augmentin 500 mg TID until 03/04 and azithromyc in 500 mg for 1 day and then continue 250 mg for 4 days .check VS q shiftencou rage fluid hydration. [id number] NELDA MANSFIELD [address] [place] [address] 03/16/2024 10:26:05 03/18/2024 10:30:33 Pneumonia 162641541 J18.9 completed abxbreathi ng is easy and unlabored Mixed anxi ety and depressive disorder 625156218 F41.8 Mood is stable.Con tinue:bupr opion SR 150 mg qdmirtazap ine 7.5 mg qhs-03/14 seen by psych with recommenda tion for GDR for mirtazapin e now ordered at 5 mg hs. patient in agreement. Monitor mood. [id number] NELDA MANSFIELD [address] [place] [address] 03/23/2024 11:08:46 03/31/2024 14:26:29 Edema 785518678 R60.0 Marked tonight.Co ntinue furosemide 40 mg qd and metolazone 2.5 mg qd on T, Th, SaMonitor sxs. Chronic pain 94988335 G8 9.29 Remains at baseline.C ontinue fentanyl patch 50 mcg q 72 hrs, salonpas patch to right shoulder qd, APAP 1000 mg TID, tramadol 25 mg BID, tizanidine 2 mg BID, and prednisone 10 mg qd.Continu e rehab as able.Monit or sxs. Mixed anxi ety and depressive disorder 972080918 F41.8 Continue bupropion SR 150 mg qd and mirtazapin e 7.5 mg qhsMonitor mood.Psych follows Atrial fibrillation 4943 6004 I48.0 Continue eliquis 2.5 mg BID for AC.Monitor HR and bleeding risk. Type 2 russel betes mellitus 98255710 E11.9 continue lantus 15 units at HSmonitor FS Gastroesop hageal reflux disease without esophagitis 718162271 K21.9 No current sxs.Contin ue omeprazole 40 mg BID.Monito r sxs Hypothyroidism 27283395 E03.8 TSH WNL.Contin ue levothyrox ine 175 mcgMonitor TSH yearly. Eczema 73669611 L30.9 Much improved.C ontinue triamcinol one 0.1 % cream BID and house moisturize r qdMonitor Neuropathy 612834418 G62 .89 Gabapentin 200 mg BIDMonitor . Hypokalemia 39652468 E87 .6 continue kcl 30 meq daily. Vitamin D deficiency 347 89485 E55.9 12/06 Vit D level 20.4 - this is lower than previous levelwas taking cholecalci ferol 1000 unit daily-incr eased to 50,000 unit weekly on thursday.patricia parkinson recheck vit d level on next lab day. [id number] NELDA MANSFIELD [address] [place] [address] 03/29/2024 10:37:33 03/31/2024 14:35:20 Mixed anxiety and depressive disorder 252550835 F41.8 Mood is stable todayConti nue:buprop ion SR 150 mg qdwith trial gdr off mirtazapin e 7.5 mg qhs-decrea sed to 3.75 mgMonitor mood, patient will report unwanted side effects of gdr such as increased anxiety, restlessne ss, insomnia [id number] NELDA MANSFIELD [address] [place] [address] 04/26/2024 14:44:48 05/02/2024 13:49:37 Cellulitis of left lower limb 5914566660 3835855 L03.116 Met sepsis criteria due to 101.5 F, WBC 19.2recent ly started on Keflex for left lower extremity cellulitis on 04/15.CT chest without any focal findings of pneumonia. s/p iv van and zosyndisch arge on take Augmentin till 04/24/24 Extravasat ion of intravenous contrast medium 516754937 T80.818A In acute care found to have left arm swelling tx conservati vely with warm compress and elevation. Atrial fibrillation 4943 6004 I48.0 Continue eliquis 2.5 mg BID for AC.Monitor HR and bleeding risk. Hypothyroidism 61263059 E03.8 TSH WNL.Contin ue levothyrox ine 175 mcgMonitor TSH yearly. Gastroesop hageal reflux disease without esophagitis 928102461 K21.9 No current sxs.Contin ue omeprazole 40 mg BID.Monito r sxs Osteoarthritis 498944546 M15.0 lidocaine patch right shoulder.f entanyl 50 mcg patch q72 hrAPAP 1000 mg tidtramado l 25 mg bid prnglucosa mine 500 mg tid Type 2 russel betes mellitus 88840129 E11.9 [facility] [id number] NELDA MANSFIELD [place] [address] [place] [address] 05/02/2024 09:59:17 05/03/2024 11:50:42 Cellulitis of left lower limb 3918711937 6152852 L03.116 05/02: see hpiLLE edema and pain, [...] 04/24/24 Extravasat ion of intravenous contrast medium 187375732 T80.818A In acute care found to have left arm swelling tx conservati vely with warm compress and elevation. Atrial fibrillation 4943 6004 I48.0 Continue eliquis 2.5 mg BID for AC.Monitor HR and bleeding risk.repor table sx reviewed. Hypothyroidism 33762534 E03.8 TSH WNL.Contin ue levothyrox ine 175 mcgMonitor TSH yearly. Gastroesop hageal reflux disease without esophagitis 047541180 K21.9 No current sxs.Contin ue omeprazole 40 mg BID.Monito r sxs Osteoarthritis 829790207 M15.0 fentanyl 50 mcg patch q72 hrAPAP 1000 mg tidtramado l 25 mg bid prnglucosa mine 500 mg tid Type 2 russel betes mellitus 19146290 E11.9 continue lantus 15 units at [facility] [place] [id number] BRYAN BERNARDO [address] [address] 05/05/2024 10:15:43 05/10/2024 15:49:53 Cellulitis of left lower limb 6126126274 8108186 L03.116 05/05: Ultrasound results reviewed, negative for [...] reviewed. Gastroesop hageal reflux disease without esophagitis 624607188 K21.9 stableNo current sxs.Contin ue omeprazole 40 mg BID.Monito r sxs Osteoarthritis 449808044 M15.0 stablefent anyl 50 mcg patch q72 hrAPAP 1000 mg tidtramado l 25 mg bid prn Type 2 russel betes mellitus 96087508 E11.9 continue lantus 15 units at [facility] FS [id number] NELDA MANSFIELD [address] [address] 05/09/2024 11:51:06 05/10/2024 16:10:25 Cellulitis of left lower limb 6315273069 1585495 L03.116 resolved Atrial fibrillation 4943 6004 I48.0 stable without sx.Continu e eliquis 2.5 mg BID for AC.Monitor HR and bleeding risk.repor table sx reviewed. Gastroesop hageal reflux disease without esophagitis 362375263 K21.9 stableNo current sxs.Contin ue omeprazole 40 mg BID.Monito r sxs Osteoarthritis 015220500 M15.0 stablefent anyl 50 mcg patch q72 hrAPAP 1000 mg tidtramado l 25 mg bid Type 2 russel betes mellitus 20471306 E11.9 continue lantus 15 units at HSmonitor FS- mainly under 200sshe is without hypo/hyper glucose sx. Edema 239487996 R60.0 BLE decreased edema note, she is wearing wilma wrapsconti nue torsemide 20 mg daily and metolazone as ord. [id number] NELDA MANSFIELD [address] [place] [address] 05/12/2024 11:47:54 05/13/2024 11:46:56 Atrial fibrillation 69019483 I48.0 stable without sx.Continu e eliquis 2.5 mg BID for AC.Monitor HR and bleeding risk.repor table sx reviewed. Gastroesop hageal reflux disease without esophagitis 340017533 K21.9 stableNo current sxs.Contin ue omeprazole 40 mg BID.Monito r sxs Osteoarthritis 237074966 M15.0 stablefent anyl 50 mcg patch q72 hrAPAP 1000 mg tidtramado l 25 mg bid Type 2 rusesl betes mellitus 02546831 E11.9 [place] mainly under 200sshe is without hypo/hyper glucose sx. Edema 026863687 R60.0 BLE decreased edema note, she is wearing wilma wrapsconti nue torsemide 20 mg daily and metolazone as ord. Spinal roni nosis of lumbar region 98524074 M48.062 fentanyl patch 50 mcgprednis one 10 mg daily - taper to start 05/16/24de creasing by 1 mg per week. [id number] NELDA MANSFIELD [address] [place] [address] 05/16/2024 08:25:38 05/18/2024 09:23:51 Atrial fibrillation 06540014 I48.0 stable without sx.Continu e eliquis 2.5 mg BID for AC.Monitor HR and bleeding risk.repor table sx reviewed. Gastroesop hageal reflux disease without esophagitis 302390986 K21.9 stableNo current sxs.Contin ue omeprazole 40 mg BID.Monito r sxs Osteoarthritis 110279642 M15.0 stablefent anyl 50 mcg patch q72 hrAPAP 1000 mg tidtramado l 25 mg bid Type 2 russel betes mellitus 94915818 E11.9 continue lantus 15 units at [facility] FS- mainly under 200sshe is without hypo/hyper glucose sx. Edema 922605101 R60.0 BLE decreased edema note, she is wearing wilma wrapsconti nue torsemide 20 mg daily and metolazone as ord. Spinal roni nosis of lumbar region 14141687 M48.062 fentanyl patch 50 mcgprednis one 10 mg daily - taper to start 05/16/24de creasing by 1 mg per week. Itching of skin 58695244 0 L29.9 left shoulder is without redness or rashencour aged to apply lotion dailywill start claritin 10 mg daily. [id number] NELDA MANSFIELD [address] [place] [address] 05/19/2024 11:11:15 05/23/2024 15:12:03 Atrial fibrillation 54205039 I48.0 stable without sx.Continu e eliquis 2.5 mg BID for AC.Monitor HR and bleeding risk.repor table sx reviewed. Gastroesop hageal reflux disease without esophagitis 266185000 K21.9 stableNo current sxs.Contin ue omeprazole 40 mg BID.Monito r sxs Osteoarthritis 354552939 M15.0 stablefent anyl 50 mcg patch q72 hrAPAP 1000 mg tidtramado l 25 mg bid Type 2 russel betes mellitus 21027542 E11.9 continue lantus 15 units at [facility] FS- mainly under 200sshe is without hypo/hyper glucose sx. Edema 921452310 R60.0 BLE decreased edema note, she is wearing wilma wrapsconti nue torsemide 20 mg daily and metolazone as ord. Spinal roni nosis of lumbar region 71866900 M48.062 fentanyl patch 50 mcgprednis one 10 mg daily - taper to start 05/16/24de creasing by 1 mg per week. Itching of skin 04210134 0 L29.9 left shoulder is without redness or rashencour aged to apply lotion dailywill start claritin 10 mg daily. [id number] NELDA MANSFIELD [address] [address] 05/23/2024 07:53:51 05/24/2024 13:52:57 Atrial fibrillation 25914844 I48.0 stable without sx.Continu e eliquis 2.5 mg BID for AC.Monitor HR and bleeding risk.repor table sx reviewed. Gastroesop hageal reflux disease without esophagitis 245171128 K21.9 stableNo current sxs.Contin ue omeprazole 40 mg BID.Monito r sxs Osteoarthritis 134869114 M15.0 stablefent anyl 50 mcg patch q72 hrAPAP 1000 mg tidtramado l 25 mg bid Type 2 russel betes mellitus 68632759 E11.9 continue lantus 15 units at [facility]- mainly under 200sshe is without hypo/hyper glucose sx. Edema 493312068 R60.0 BLE decreased edema note, she is wearing wilma wrapsconti nue torsemide 20 mg daily and metolazone as ord. Spinal roni nosis of lumbar region 83773992 M48.062 fentanyl patch 50 mcgprednis one 10 mg daily - taper to start 05/16/24de creasing by 1 mg per week. Itching of skin 22330692 0 L29.9 left shoulder is without redness or rashencour aged to apply lotion dailywill start claritin 10 mg daily. [id number] NELDA MANSFIELD [address] [address] 05/27/2024 07:54:05 05/30/2024 13:39:41 Atrial fibrillation 50711072 I48.0 stable without sx.Continu e eliquis 2.5 mg BID for AC.Monitor HR and bleeding risk.repor table sx reviewed. Gastroesop hageal reflux disease without esophagitis 328783464 K21.9 stableNo current sxs.Contin ue omeprazole 40 mg BID.Monito r sxs Osteoarthritis 692845566 M15.0 stablefent anyl 50 mcg patch q72 hrAPAP 1000 mg tidtramado l 25 mg bid Type 2 russel betes mellitus 92282659 E11.9 continue lantus 15 units at [facility] FS- mainly under 200sshe is without hypo/hyper glucose sxwill need updated A1c as we taper off prednisone Edema 848404160 R60.0 improved with compressio n stockings. continue torsemide 20 mg daily and metolazone as ord. Spinal roni nosis of lumbar region 36150866 M48.062 fentanyl patch 50 mcgprednis one 10 mg daily - tapering off 1 mg per weekdecrea sing by 1 mg per week. Itching of skin 44656591 0 L29.9 stableleft shoulder is without redness or rashencour aged to apply lotion dailywill start claritin 10 mg daily. [id number] NELDA MANSFIELD [address] [place] [address] 06/02/2024 09:27:55 06/06/2024 12:53:38 Atrial fibrillation 89663839 I48.0 stable without sx.Continu e eliquis 2.5 mg BID for AC.Monitor HR and bleeding risk.repor table sx reviewed. Gastroesop hageal reflux disease without esophagitis 381574960 K21.9 reports hypogastri c non radiating pain+ nausea no vomitinNo current sxs.Contin ue omeprazole 40 mg BID.Monito r sxs Osteoarthritis 135783427 M15.0 stablefent anyl 50 mcg patch q72 hrAPAP 1000 mg tidtramado l 25 mg bid Type 2 russel betes mellitus 22180345 E11.9 stablecont inue lantus 15 units at [facility] FS- mainly under 200sshe is without hypo/hyper glucose sx Edema 923578390 R60.0 improved with compressio n stockings. continue torsemide 20 mg daily and metolazone as ord. Blister of lower leg without infection 57042991 S80.822A initially fluid filled with clear liquidnow burst-anais ent recently tx for cellulitis , I prefer wound to be tx with and antispetic nursing ord to cleanse with NS 0r warm soap and water dialy, paint with betadine with non adhesive dressing and kerlix. [id number] BRYAN BERNARDO, [address] [address] 06/06/2024 08:41:07 06/07/2024 11:48:57 Atrial fibrillation 68692283 I48.0 stable without sx.Continu e eliquis 2.5 mg BID for AC.Monitor HR and bleeding risk.repor table sx reviewed. Gastroesop hageal reflux disease without esophagitis [id number] K21.9 No current sxs.Contin ue omeprazole 40 mg BID.Monito r sxs Osteoarthritis [id number] M15.0 stablefent anyl 50 mcg patch q72 hrAPAP 1000 mg tidtramado l 25 mg bid Type 2 russel betes mellitus [id number] E11.9 stablecont inue lantus 15 units at [facility]- mainly under 200sshe is without hypo/hyper glucose sx Edema 944616348 R60.0 continue torsemide 20 mg daily and metolazone as ord. Blister of lower leg without infection 65656939 S80.822A initially fluid filled with clear liquidnow burst-anais ent recently tx for cellulitis , I prefer wound to be tx with and antispetic as well.nursi ng ord to cleanse with NS 0r warm soap and water dialy, paint with betadine cover with xeroform dressing and kerlix. [id number] BRYAN BERNARDO [address] [address] 06/16/2024 11:11:20 06/21/2024 11:07:01 Edema 155184405 R60.0 continue torsemide 20 mg daily and metolazone as ord. Blister of lower leg without infection 77356502 S80.822A initially fluid filled with clear liquidnow [...] recs to continue current tx ords. Dysuria 49288122 R30.0 send urine for UA with C&Swater encouraged to flush out toxins Fatigue 13338913 R53.83 recheck bmp, cbc, TSH,iron , ammonia and Vit B & D levels on 06/17 [id number] NELDA MANSFIELD [address] [place] [address] 06/27/2024 12:04:26 06/30/2024 11:21:08 Cellulitis of right lower limb [id number] 0916953 L03.115 2/2 diabetes and decreased skin integrity from venous stasis and chronic prednisone usetx with IV ancef in acute carecomple cassie po abx keflex on 06/24follo wed by Wound MD Venous ins ufficiency of lower limb 599810561 I87.2 chronic BLE edema/RLE acute DVT /right almanza erupted skin blisterdis cussed with nursing, continue eliquis and wound tx with xeroform Acute deep venous thrombosis of femoral vein 5528448685 53648 I82.419 non occlusive/ RLEon eliquis 5 mg BID Chronic heart failure 48 359102 I50.9 acute on chronic/el evated BNP tx with IV lasixCXR showed interstiti al markings but difficult to interpret due to underlying fibrosisco ntinue torsemide and metolazone monitor labs Edema 876135796 R60.0 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 [id number] NELDA MANSFIELD [address] [place] [address] 06/30/2024 08:36:09 07/01/2024 12:09:02 Cellulitis of right lower limb [id number] 8908372 L03.115 completed abxdenies any pain, per nsg no erythema or warmth Venous ins ufficiency of lower limb 294812660 I87.2 chronic BLE edema/RLE acute DVT /right almanza erupted skin blisterdis cussed with nursing, continue eliquis and wound tx Acute deep venous thrombosis of femoral vein 4033667873 23843 I82.419 non occlusive/ RLEon eliquis 5 mg BID Chronic heart failure 48 151334 I50.9 acute on chronic/el evated BNP tx with IV lasixCXR showed interstiti al markings but difficult to interpret due to underlying fibrosisco ntinue torsemide and metolazone baseline crackles with hx of pulm. 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 Wound 293010596 T14.90 XA see pi2/2 to erupted blisterfol lowed by wound MD with recent changes to oil emulsion.shelbie kelly provided why tx was changedwil l resume previous tx order of NS and betadine per patient request and have wound re evaldiscus sed with nursing [id number] NELDA MANSFIELD [address] [place] [address] 07/04/2024 10:17:37 07/05/2024 14:29:23 Venous insufficiency of lower limb 392524401 I87.2 stablechro gavin BLE edema/RLE acute DVT /right almanza erupted skin blisterdis cussed with nursing, continue eliquis and wound tx Acute deep venous thrombosis of femoral vein [id number] 55725 I82.419 non occlusive/ RLEon eliquis 5 mg BID Chronic heart failure 48 391757 I50.9 acute on chronic/el evated BNP tx with IV lasixCXR showed interstiti al markings but difficult to interpret due to underlying fibrosisco ntinue torsemide and metolazone baseline crackles with hx of pulm. fibrosismo nitor labs Edema 714287235 R60.0 chronic/st abl;e with no increase on exam todayconsi jeff referral to lymphedema clinic - she often c/o pain, she is at increase risk for recurrent infection. Wound 669523188 T14.90 XA see pi2/2 to erupted blisterfol lowed by wound with recent changes to oil emulsion.shelbie kelly provided why tx was changedwil l resume previous tx order of NS and betadine per patient request and have wound re evaldiscus sed with nursing [id number] NELDA MANSFIELD [place] [address] [place] [address] 07/07/2024 08:16:53 07/08/2024 13:27:39 Venous insufficiency of lower limb 611709682 I87.2 stablechro gavin BLE edema/RLE acute DVT /right almanza erupted skin blisterdis cussed with nursing, continue eliquis and wound txseen by wound MD with new order changes made in pcc. Acute deep venous thrombosis of femoral vein 8321459602 18370 I82.419 non occlusive/ RLEon eliquis 5 mg BID Chronic heart failure 48 109606 I50.9 continue torsemide and metolazone baseline crackles with hx of pulm. fibrosismo nitor labs Edema 504898516 R60.0 chronic/st ableconsid er referral to lymphedema clinic - she often c/o pain, she is at increase risk for recurrent infection. [id number] NELDA MANSFIELD [address] [address] 07/11/2024 10:40:35 07/12/2024 12:07:39 Venous insufficiency of lower limb 700697698 I87.2 stablechro gavin BLE edema/RLE acute DVT /right almanza erupted skin blisterdis cussed with nursing, continue eliquis and wound txfollowed by wound /continu e current tx orders. Acute deep venous thrombosis of femoral vein 6196753903 24038 I82.419 non occlusive/ RLEon eliquis 5 mg BID Chronic heart failure 48 646362 I50.9 baseline BLE edema, otherwise no worsening edema notedconti nue torsemide and metolazone baseline crackles with hx of pulm. fibrosismo nitor labs Edema 811290580 R60.0 chronic/st ableconsid er referral to lymphedema clinic - she often c/o pain, she is at increase risk for recurrent infection. 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, [address], [place], [address], [employer] 07/07/2024 15:22:09 07/11/2024 text/html ROS as [...] and history of PE NELDA MANSFIELD [address] , [address], [place], [address], [employer] 07/11/2024 14:31:09 07/15/2024 text/html ROS as noted in the HPI This is an 84 yr old women seen for acute rounding visit, she is reporting dysuria for a few days and states sx are similar to past UTI complaints. she denies any frequency or urgency, she has been afebrile. NELDA MANSFIELD [address] , [address], [place], [address], [employer] 07/15/2024 12:35:05 07/18/2024 text/html ROS as noted in the HPI This is an 84 yr old women seen for acute rounding visit for follow for dysuria. Recent UA negative for infection, pt updated on results, she now reports that she is no longer experiencing sx.she encouraged to increase fluid preferably water. NELDA MANSFIELD [address] , [address], [place], [address], [employer] 07/18/2024 12:28:32 07/21/2024 text/html ROS as noted in the HPI This is an 84 yr old women seen for acute rounding visit. She has been at baseline in NAD, today she is doing ok, there are no acute concerns. 07/21/24 Tested negative for covid NELDA MANSFIELD [address], [address], [place], [address], [employer] 07/21/2024 15:46:48 OBGyn Episode No OBEpisode recorded.
[2025-05-29 06:26] LABS: Hematocrit 35.0 % (37.0-47.0); Hemoglobin 11.0 g/dl (12.0-16.0); Imm Gran Abs Auto 0.18 X10*3/uL (0.00-0.03); Imm Gran Pct Auto 1.8 % (0.0-0.4); Lymphocytes Absolute Auto 1.6 X10*3/uL (1.2-4.9); Mean Corpuscular HGB Conc 31.4 g/dl (31.0-35.0); Mean Corpuscular Hemoglobin 32.0 pg (27.0-33.0); Mean Corpuscular Volume 101.7 fL (80.0-98.0); NRBC Abs Auto 0.000 X10*3/uL (0.0-0.012); NRBC Pct Auto 0.0 /100WBC (0.0-0.2); Platelet Count 251 X10*3/uL (160-400); Red Blood Count 3.44 X10*6/uL (4.20-5.50); White Blood Count 10.0 X10*3/uL (4.8-10.8)
[2025-05-29 06:51] LABS: Anion Gap 14 (12-20); Blood Urea Nitrogen 32 mg/dL (9-16); Calcium 9.0 mg/dL (8.4-10.2); Carbon Dioxide 24 mmol/L (22-29); Chloride 106 mmol/L (96-108); Estimated Glomerular Filt Rate 42; Potassium 4.2 mmol/L (3.3-5.1); Sodium 140 mmol/L (135-145)
== END 2025-05-29 06:04 | disposition home or self-care (01) ==
LOC: HO.MMNH3L 06:03
PROVIDERS: Visit Provider Physician Assistant Medical
DX: K86.1 Other chronic pancreatitis (principal); J84.10 Pulmonary fibrosis, unspecified; E11.9 Type 2 diabetes mellitus without complications
CPT/HCPCS: 36415; 80048; 85025